=== PATIENT | male | born 1980 | race Caucasian/White ===

== ENCOUNTER → 2024-09-11 | Outpatient (REF) | payer MEDICARE, SELFPAY ==
[2024-09-11 08:11] LABS: Hematocrit 31.6 % (40-54); Hemoglobin 10.4 g/dL (13.0-16.5); Mean Corp Hgb Conc 32.9 g/dL (32-36); Mean Corpuscular Volume 75.2 fL (80-94); Mean Platelet Vol. 9.3 fl (6.2-12.0); Platelet Count 138 K/mm3 (150-450); RBC Distribution Width CV 17.0 % (11.6-14.6); RBC Distribution Width SD 45.4 fl (35.1-43.9); Red Blood Count 4.20 M/mm3 (4.6-6.2); White Blood Count 4.2 K/mm3 (4.4-11.0)
[2024-09-11 09:12] LABS: Anion Gap 11 (5-15); BUN 23 mg/dL (4-19); BUN/Creat Ratio 24.6 RATIO (10-20); Calcium,Total 8.9 mg/dL (7.6-11.0); Carbon Dioxide 20.1 mmol/L (21.0-32.0); Chloride 103 mmol/L (98-108); Glucose 213 mg/dL (70-99); Potassium 4.5 mmol/L (3.3-5.1)
== END ==
LOC: OLS.SANC 04:00
PROVIDERS: Referring Provider Internal Medicine; Visit Provider Internal Medicine
DX: I10 Essential (primary) hypertension (principal); E11.9 Type 2 diabetes mellitus without complications
CPT/HCPCS: 36415; 80048; 85027

== ENCOUNTER → 2024-10-13 05:00 | Outpatient (REF) | payer MEDICARE, SELFPAY ==
[2024-10-13 09:28] LABS: Hematocrit 35.9 % (40-54); Hemoglobin 11.8 g/dL (13.0-16.5); Mean Corp Hgb Conc 32.9 g/dL (32-36); Mean Corpuscular Volume 80.7 fL (80-94); Mean Platelet Vol. 9.8 fl (6.2-12.0); Platelet Count 149 K/mm3 (150-450); RBC Distribution Width CV 18.4 % (11.6-14.6); RBC Distribution Width SD 53.2 fl (35.1-43.9); Red Blood Count 4.45 M/mm3 (4.6-6.2); White Blood Count 5.5 K/mm3 (4.4-11.0)
[2024-10-13 09:37] LABS: Anion Gap 12 (5-15); BUN 39 mg/dL (4-19); BUN/Creat Ratio 39.6 RATIO (10-20); Calcium,Total 9.2 mg/dL (7.6-11.0); Carbon Dioxide 15.0 mmol/L (21.0-32.0); Chloride 107 mmol/L (98-108); Glucose 66 mg/dL (70-99); Potassium 4.9 mmol/L (3.3-5.1)
== END ==
LOC: OLS.SANC 05:00
PROVIDERS: Visit Provider Internal Medicine
DX: E11.9 Type 2 diabetes mellitus without complications (principal); I10 Essential (primary) hypertension; Z86.19 Personal history of other infectious and parasitic diseases
CPT/HCPCS: 36415; 80048; 85027

== ENCOUNTER → 2024-11-04 | Outpatient (REF) | payer MEDICARE, SELFPAY | LOC: OLS.SANC 05:00 | PROVIDERS: Visit Provider Internal Medicine | DX: E11.9 Type 2 diabetes mellitus without complications (principal) | CPT/HCPCS: 36415; 83036 ==

== ENCOUNTER → 2025-01-08 05:00 | Outpatient (REF) | payer MEDICARE, SELFPAY ==
--- OUTSIDE RECORDS SUMMARY | 2025-01-08 04:40 | XMS RPT_ITS | CCD ---
Author Organization [facility] Care Team Providers Care Waredresser Name Role Phone Prabhjot Angelita Primary Care Provider Dino HANDLEY, Eric Montemayor Primary Care Provider Desean HANDLEY, Stephanie Primary Care Provider [phone] Mally HANDLEY, Triston Unavailable Triston Bal MD Unavailable Liseth Belle DO Unavailable [phone] CHRISTINA JIM Attending Unavailable MEGAN MERCADO Consulting Unavailable MEGAN MERCADO Attending Unavailable MEGAN MERCADO Admitting Unavailable TRISTON BAL Consulting Unavailable DAHLIA FUNEZ Admitting Unavailable DAHLIA FUNEZ Attending Unavailable TITO REID Consulting Unavailable HAILY DURANT Consulting Unavailable RAFAELA CALDERON Consulting Unavailable Lan Leary Attending Unavailable Lan Leary Attending Unavailable Lan Leary Attending Unavailable Lan Leary Attending Unavailable Lan Leary Referring Unavailable Lan Leary Referring Unavailable Lan Leary Attending Unavailable Allergies Allergy Classification Reported Allergen(s) Allergy Type Date of Onset Reaction(s) Facility Penicillins (antibiotic) (2 sources) Penicillins Drug Allergy 12-03-2014 [facility] (8 sources) Penicillins Propensity to adverse reactions to drug 12-03-2014 [place], [place] (20 sources) Penicillins Propensity to adverse reactions 12-03-2014 [facility] Medications Current Medications Medication Drug Class(es) Dates Sig (Normalized) Sig (Original) aspirin 81 mg delayed release oral tablet (10 sources) Platelet Aggregation Inhibitor, Nonsteroidal Anti-inflammatory Drug Start: 10-08-2020 take 1 tablet by mouth once daily aspirin EC 81 MG EC tablet Indications: Type 2 diabetes mellitus without complication, without long-term current use of insulin (HCC) , Hyperlipidemia, unspecified hyperlipidemia type Take 1 tablet by mouth daily 30 tablet 3 10/08/2020 Active Start: 07-15-2020 take 1 tablet by zabrina th once daily aspirin EC 81 MG EC tablet Indications: Hyperlipidemia, unspecified hyperlipidemia type , Type 2 diabetes mellitus without complication, without long-term current use of insulin (HCC) Take 1 tablet by mouth daily 30 tablet 3 07/15/2020 Active Start: 01-01-2020 take 1 tablet by zabrina th once daily aspirin EC 81 MG EC tablet Indications: Hyperlipidemia, unspecified hyperlipidemia type , Type 2 diabetes mellitus without complication, without long-term current use of insulin (HCC) Take 1 tablet by mouth daily 30 tablet 3 01/01/2020 Active atorvastatin 80 mg oral tablet (12 sources) HMG-CoA Reductase Inhibitor Start: 10-08-2020 take 1 tablet by mouth once daily atorvastatin (LIPITOR) 80 MG tablet Indications: Hyperlipidemia, unspecified hyperlipidemia type Take 1 pill by mouth nightly 90 tablet 0 10/08/2020 Active Start: 06-18-2020 take 1 tablet by zabrina th once daily atorvastatin (LIPITOR) 80 MG tablet Indications: Hyperlipidemia, unspecified hyperlipidemia type Take 1 pill by mouth nightly 90 tablet 0 06/18/2020 Active Start: 06-08-2020 End: 06-18-2020 take 40 mg by mouth once daily 40 mg, Oral, DAILY, First dose on Sun06/18/20 at 0900 Start: 03-29-2020 take 1 tablet by zabrina th once daily atorvastatin (LIPITOR) 40 MG tablet Indications: Hyperlipidemia, unspecified hyperlipidemia type TAKE ONE TABLET BY MOUTH DAILY 30 tablet 0 03/29/2020 Active Start: 02-19-2020 take 1 tablet by zabrina th once daily atorvastatin (LIPITOR) 40 MG tablet Indications: Hyperlipidemia, unspecified hyperlipidemia type TAKE ONE TABLET BY MOUTH DAILY 30 tablet 0 02/19/2020 Active Start: 01-01-2020 End: 01-31-2020 take 1 tablet by mouth once daily atorvastatin (LIPITOR) 40 MG tablet Indications: Hyperlipidemia, unspecified hyperlipidemia type Take 1 tablet by mouth daily 30 tablet 0 01/01/2020 01/31/2020 Active calcium carbonate 625 mg / cholecalciferol 125 unt oral tablet (3 sources) Vitamin D Start: 10-08-2020 End: 10-08-2021 take 1 tablet by mouth once daily Calcium Carb-Cholecalciferol (OYSCO D) 250-125 MG-UNIT TABS Indications: Vitamin C deficiency Take 1 tablet by mouth daily 30 tablet 11 10/08/2020 10/08/2021 Active Start: 04-06-2015 take 1 tablet by zabrina once daily Calcium Carb-Cholecalciferol (OYSCO D) 250-125 MG-UNIT TABS Indications: Vitamin C deficiency Take 1 tablet by mouth daily 30 tablet 11 04/06/2015 Active collagenase 0.25 unt/mg topical ointment (20 sources) Collagen-specific Enzyme Start: 05-30-2024 End: 06-06-2024 apply 1 dose topically once daily as needed Topical, Daily, First dose on Mimi 06/05/24 at 1115, Nursing staff to perform dressing change: Perineum: NHSW (infection) - Cleanse with Dakins. Apply Santyl to wound bed. Lightly pack with Dakins moist gauze. Cover with ABD pads and mesh underwear. Change daily and PRN. Start: 05-27-2024 End: 09-04-2024 collagenase 250 UNIT/GM oint ment Apply topically as needed (Wound care). 06/06/2024 09/04/2024 Active 0.5 ml dulaglutide 3 mg/ml auto-injector (4 sources) GLP-1 Receptor Agonist Start: 10-08-2020 Dulaglutide (TRULICITY) 1.5 MG/0.5ML SOPN Inject 1.5 mg into the skin once a week 10 pen 3 10/08/2020 Active Start: 06-18-2020 Dulaglutide (T RULICITY) 1.5 MG/0.5ML SOPN Inject 1.5 mg into the skin once a week 10 pen 3 07/16/2020 Active ertapenem (6 sources) Penem Antibacterial Start: 07-11-2024 End: 07-17-2024 take 1 g intravenously every twenty-four hours ERTAPENEM SODIUM IV Infuse 1 g into a venous catheter Every 24 hours. 07/11/2024 07/17/2024 Active 50 ml glucose 50 mg/ml injection (20 sources) Start: 06-04-2024 End: 06-06-2024 Start: 06-04-2024 End: 06-06-2024 Start: 05-21-2024 End: 06-06-2024 dextrose 5 % solution Infuse 100 mL/hr into a venous catheter as needed (Blood sugar less than 70mg/dL). 06/06/2024 Active Start: 06-18-2020 15 g, Oral, KS N, Low blood sugar, Starting Sun06/18/20 at 0328 If blood glucose less than 50 mg/dL and patient ALERT and TOLERATING PO, give 2 tubes glucose gel. If blood glucose less than 70 mg/dL and patient ALERT and TOLERATING PO, give 1 tube glucose gel. Repeat blood glucose in 15 minutes. If blood glucose is less than 70 mg/dL, repeat treatment and recheck blood glucose in 15 minutes x2 and notify provider. Start: 06-18-2020 12.5 g, Intrav enous, PRN, Low blood sugar, Blood glucose less than 70 mg/dL and patient NOT ALERT or NPO., Starting Sun06/18/20 at 0328 If patient does not respond within 5 minutes, repeat dose x1. Start D5W at 100 mL/hour until ordering provider can be reached. Repeat blood glucose in 15 minutes. If blood glucose is less than 70 mg/dL, repeat treatment and recheck blood glucose in 15 minutes x2. If using Glucostabilizer, dose as instructed per system. Start: 06-18-2020 100 mL/hr, Int ravenous, at 100 mL/hr, PRN, Low blood sugar, Starting Sun06/18/20 at 0328 Start infusion following administration of dextrose 50% or glucagon. hydroCHLOROthiazide 25 mg oral tablet (8 sources) Thiazide Diuretic Start: 12-27-2016 End: 06-18-2020 take 25 mg by mouth once daily 25 mg, Oral, DAILY, First dose on Sun06/18/20 at 0900 hydrOXYzine pamoate 25 mg oral capsule (20 sources) Antihistamine Start: 05-25-2024 End: 06-16-2024 take 1 capsule by mouth every eight hours as needed hydrOXYzine pamoate (Vistaril) 25 MG capsule Indications: Wound of left buttock, subsequent encounter Take 1 capsule (25 mg) by mouth every 8 hours as needed for itching for up to 10 days. 06/06/2024 Active insulin lispro 100 unt/ml injectable solution (20 sources) Insulin Analog Start: 06-06-2024 End: 06-06-2024 0-12 Units, SubCUTAneous, 4 times daily before meals & nightly, First dose (after last modification) on Sun06/06/24 at 0800, Medium Dose Correction Algorithm Glucose: Dose: LESS than 150 No Insulin 150-199 2 Units 200-249 4 Units 250-299 6 Units 300-349 8 Units 350-400 10 Units Above 400 12 Units Start: 05-30-2024 End: 06-06-2024 Insulin Lispro (Humalog) 100 UNIT/ML solution injection Inject 0-12 Units under the skin 3 times daily (with meals) AND 0-12 Units Nightly. 06/06/2024 Active Start: 05-21-2024 lisinopril 20 mg oral tablet (10 sources) Angiotensin Converting Enzyme Inhibitor Start: 10-08-2020 take 1 tablet by mouth once daily lisinopril (PRINIVIL;ZESTRIL) 20 MG tablet Indications: Essential hypertension , Type 2 diabetes mellitus with hyperglycemia, without long-term current use of insulin (HCC) Take 1 tablet by mouth daily 30 tablet 3 10/08/2020 Active Start: 09-06-2020 take 1 tablet by zabrina th once daily lisinopril (PRINIVIL;ZESTRIL) 10 MG tablet Indications: Essential hypertension , Type 2 diabetes mellitus with hyperglycemia, without long-term current use of insulin (HCC) Take 1 tablet by mouth daily 90 tablet 3 09/06/2020 Active Start: 06-08-2020 End: 06-18-2020 take 2.5 mg by mouth once daily 2.5 mg, Oral, DAILY, First dose on Sun06/18/20 at 0900 Start: 03-29-2020 take 1 tablet by zabrina th once daily lisinopril (PRINIVIL;ZESTRIL) 2.5 MG tablet Indications: Essential hypertension TAKE ONE TABLET BY MOUTH DAILY 30 tablet 0 03/29/2020 Active Start: 02-19-2020 take 1 tablet by zabrina th once daily lisinopril (PRINIVIL;ZESTRIL) 2.5 MG tablet Indications: Essential hypertension TAKE ONE TABLET BY MOUTH DAILY 30 tablet 0 02/19/2020 Active Start: 01-01-2020 End: 01-31-2020 take 1 tablet by mouth once daily lisinopril (ZESTRIL) 2.5 MG tablet Indications: Essential hypertension Take 1 tablet by mouth daily 30 tablet 0 01/01/2020 01/31/2020 Active metFORMIN hydrochloride 500 mg oral tablet (8 sources) Biguanide Start: 10-08-2020 take 1 tablet by mouth twice daily at mealtime metFORMIN (GLUCOPHAGE) 500 MG tablet Indications: Type 2 diabetes mellitus without complication, without long-term current use of insulin (HCC) TAKE ONE TABLET BY MOUTH TWO TIMES A DAY with meals 60 tablet 0 10/08/2020 Active Start: 07-15-2020 take 1 tablet by zabrina th twice daily at mealtime metFORMIN (GLUCOPHAGE) 500 MG tablet Indications: Type 2 diabetes mellitus without complication, without long-term current use of insulin (HCC) TAKE ONE TABLET BY MOUTH TWO TIMES A DAY with meals 60 tablet 0 07/15/2020 Active Start: 06-08-2020 take 1 tablet by zabrina th twice daily at mealtime metFORMIN (GLUCOPHAGE) 500 MG tablet Indications: Type 2 diabetes mellitus without complication, without long-term current use of insulin (HCC) TAKE ONE TABLET BY MOUTH TWO TIMES A DAY with meals 60 tablet 0 06/08/2020 Active Start: 2020 End: 02-19-2020 take 1 tablet by mouth twice daily at mealtime metFORMIN (GLUCOPHAGE) 500 MG tablet Indications: Type 2 diabetes mellitus without complication, without long-term current use of insulin (HCC) Take 1 tablet by mouth 2 times daily (with meals) 60 tablet 2 01/20/2020 02/19/2020 Active Start: 01-01-2020 End: 01-31-2020 take 1 tablet by mouth once daily at breakfast metFORMIN (GLUCOPHAGE) 500 MG tablet Indications: Type 2 diabetes mellitus without complication, without long-term current use of insulin (HCC) Take 1 tablet by mouth daily (with breakfast) 30 tablet 0 01/01/2020 01/31/2020 Active morphine (PF) injection 2 mg (1 source) Start: 06-18-2020 morphine (PF) injection 2 mg ondansetron 4 mg disintegrating oral tablet (10 sources) Serotonin-3 Receptor Antagonist Start: 05-30-2024 End: 06-13-2024 take 1 tablet by mouth every eight hours as needed for nausea and vomiting ondansetron ODT (Zofran-ODT) 4 MG disintegrating tablet Take 1 tablet (4 mg) by mouth every 8 hours as needed for nausea or vomiting for up to 7 days. 06/06/2024 06/13/2024 Active oxyCODONE hydrochloride 5 mg oral tablet (10 sources) Opioid Agonist Start: 05-30-2024 End: 06-11-2024 take 1 tablet by mouth every six hours as needed for pain oxyCODONE (Roxicodone) 5 MG immediate release tablet Indications: Wound of left buttock, subsequent encounter Take 1 tablet (5 mg) by mouth every 6 hours as needed for moderate pain (4-6) for up to 5 days. 06/06/2024 06/11/2024 Active pantoprazole 40 mg delayed release oral tablet (3 sources) Proton Pump Inhibitor Start: 06-18-2020 take 1 tablet by mouth once daily before breakfast pantoprazole (PROTONIX) 40 MG tablet Take 1 tablet by mouth every morning (before breakfast) 30 tablet 3 06/18/2020 Active Start: 06-18-2020 pantoprazole ( PROTONIX) tablet 40 mg piperacillin 4000 mg / tazobactam 500 mg injection (20 sources) Penicillin-class Antibacterial, beta Lactamase Inhibitor Start: 06-06-2024 take 4.5 g intravenously every six hours piperacillin-tazobactam (Zosyn) IVPB 4.5 g in 100 mL (premix) Infuse 100 mL (4.5 g) into a venous catheter every 6 hours. 06/06/2024 Active Start: 06-04-2024 End: 06-06-2024 take 4500 mg intravenously every six hours 4,500 mg, IntraVENous, at 200 mL/hr, Administer over 0.5 Hours, Every 6 hours, First dose on Sun06/04/24 at 2300, premix bag, Suspected Indication (Select all that apply): Skin and Soft Tissue Infection predniSONE 20 mg oral tablet (1 source) Start: 08-15-2021 End: 08-22-2021 take 3 tablets by mouth once daily predniSONE (DELTASONE) 20 MG tablet Take 3 tablets by mouth daily for 7 days 5 tablet 0 08/15/2021 08/22/2021 Active Promethazine (1 source) Phenothiazine Start: 06-18-2020 promethazine (PHENERGAN) tablet 12.5 mg regular insulin, human 100 unt/ml injectable solution (1 source) Insulin Start: 06-18-2020 0-10 Units, Subcutaneous, 3 TIMES DAILY BEFORE MEALS, First dose on Sun06/18/20 at 0700 Corrective Low Dose Algorithm Glucose: Dose: 70-139 No Insulin 140- 199 1 Unit 200-249 2 Units 250-29 9 3 Units 300-34 9 4 Units 350-39 9 5 Units Over 399 6 Units Vancomycin (20 sources) Glycopeptide Antibacterial Start: 06-06-2024 take 1250 mg intravenously every twelve hours vancomycin IVPB 1250 mg in 250 mL NS (premix) Infuse 250 mL (1,250 mg) into a venous catheter every 12 hours. 06/06/2024 Active Start: 06-05-2024 End: 06-06-2024 take 1250 mg intravenously every twelve hours 1,250 mg, IntraVENous, at 166.7 mL/hr, Administer over 90 Minutes, Every 12 hours, First dose (after last modification) on [facility] 06/05/24 at 2200, premix bag, Suspected Indication (Select all that apply): Skin and Soft Tissue Infection Start: 06-05-2024 End: 06-05-2024 take 1250 mg intravenously every eight hours 1,250 mg, IntraVENous, at 166.7 mL/hr, Administer over 90 Minutes, Every 8 hours, First dose (after last reorder) on [facility] 06/05/24 at 1030, premix bag, Suspected Indication (Select all that apply): Skin and Soft Tissue Infection take 1 g intravenous ly every twelve hours vancomycin IVPB 1 g in 200 mL (premix) Infuse 1 g into a venous catheter every 12 hours. Active Completed/Discontinued Medications Medication Drug Class(es) Dates Sig (Normalized) Sig (Original) acetaminophen 325 mg oral tablet (16 sources) Start: 06-04-2024 End: 06-06-2024 take 1 tablet by mouth every four hours as needed for pain and headache 650 mg, Oral, Every 4 hours PRN, moderate pain (4-6), headaches, Starting on Sun06/04/24 at 2044, Maximum dose of acetaminophen is 4000 mg from all sources in 24 hours. Start: 05-21-2024 End: 06-16-2024 take 2 tablets by mouth every four hours as needed for pain and headache acetaminophen (Tylenol) 325 MG tablet Take 2 tablets (650 mg) by mouth every 4 hours as needed for moderate pain (4-6) or headaches for up to 10 days. 06/06/2024 06/16/2024 Start: 06-18-2020 acetaminophen (TYLENOL) tablet 650 mg calcium carbonate 500 mg oral tablet (7 sources) Start: 04-06-2015 take 1 tablet by mouth once daily calcium carbonate (OSCAL) 500 MG TABS tablet Indications: Hypertension goal BP (blood pressure) Take 1 tablet by mouth daily 30 tablet 3 04/06/2015 Active Start: 04-06-2015 End: 06-18-2020 take 1 tablet by mouth once daily calcium carbonate (OSCAL) 500 MG TABS tablet Indications: Hypertension goal BP (blood pressure) Take 1 tablet by mouth daily 30 tablet 3 04/06/2015 06/18/2020 Discontinued (LIST CLEANUP) calcium chloride 0.0014 meq/ml / potassium chloride 0.004 meq/ml / sodium chloride 0.103 meq/ml / sodium lactate 0.028 meq/ml injectable solution (5 sources) Start: 06-05-2024 End: 06-06-2024 take 75 mL intravenously every hour 75 mL/hr, IntraVENous, Continuous, Starting on Mimi 06/05/24 at 0000 Start: 05-21-2024 End: 05-21-2024 Start: 08-15-2021 End: 08-15-2021 lactated ringers bolus cephalexin 500 mg oral capsule (4 sources) Cephalosporin Antibacterial Start: 05-30-2024 End: 06-06-2024 take 2 capsules by mouth three times daily cephalexin (Keflex) 500 MG capsule Take 2 capsules (1,000 mg) by mouth 3 times daily for 4 days. 05/30/2024 06/06/2024 Discontinued (Stop taking at discharge) cholecalciferol 9.52 unt/ml / glucose 357 mg/ml oral gel (4 sources) Vitamin D Start: 06-04-2024 End: 06-06-2024 Start: 05-21-2024 End: 05-30-2024 50 ml clindamycin 12 mg/ml injection (4 sources) Lincosamide Antibacterial Start: 06-04-2024 End: 06-06-2024 take 600 mg intravenously every eight hours 600 mg, IntraVENous, at 100 mL/hr, Administer over 30 Minutes, Every 8 hours, First dose on Sun06/04/24 at 2100, premix bag, Suspected Indication (Select all that apply): Skin and Soft Tissue Infection Start: 05-22-2024 End: 05-26-2024 take 600 mg intravenously every eight hours 0.4 ml enoxaparin sodium 100 mg/ml prefilled syringe (4 sources) Low Molecular Weight Heparin Start: 06-05-2024 End: 06-06-2024 inject 40 mg by subcutaneous injection every twenty-four hours 40 mg, SubCUTAneous, Every 24 hours scheduled (Daily), First dose on Sun06/05/24 at 1200, Indication of Use: Prophylaxis-DVT/PE, Indications: Prophylaxis of Venous Thromboembolism Start: 05-22-2024 End: 05-23-2024 2 ml fentaNYL 0.05 mg/ml injection (2 sources) Opioid Agonist Start: 06-05-2024 End: 06-05-2024 IntraVENous, As needed, Starting on Sun06/05/24 at 1332, Intraprocedure glucagon (rdna) 1 mg injection (5 sources) Antihypoglycemic Agent Start: 06-04-2024 End: 06-06-2024 Start: 05-21-2024 End: 05-30-2024 Start: 06-18-2020 take 1 mL intravenou s route every hour 1 mg, Intramuscular, PRN, Low blood sugar, Blood glucose less than 70 mg/dL and patient NOT ALERT or NPO and does not have IV access., Starting Sun06/18/20 at 0328 After administration, attempt intravenous access and start D5W at 100 mL/hr. Repeat blood glucose in 15 minutes x2 and notify provider. 250 ml glucose 50 mg/ml / sodium chloride 4.5 mg/ml injection (2 sources) Start: 05-22-2024 End: 05-26-2024 1 ml HYDROmorphone hydrochloride 1 mg/ml cartridge (2 sources) Opioid Agonist Start: 05-26-2024 End: 05-26-2024 sodium hypochlorite 2.5 mg/m l topical solution (16 sources) Start: 06-05-2024 End: 06-06-2024 Irrigation, 2 times daily, First dose on Sun06/05/24 at 2100 Start: 06-05-2024 End: 06-06-2024 apply 1 dose topically once daily as needed Topical, Daily, First dose (after last modification) on Sun06/05/24 at 1645, Nursing staff to perform dressing change: Perineum: NHSW (infection) - Cleanse with Dakins. Apply Santyl to wound bed. Lightly pack with Dakins moist gauze. Cover with ABD pads and mesh underwear. Change daily and PRN. Start: 05-30-2024 End: 06-06-2024 sodium hypochlorite (Dakin's , HALF-Strength,) 0.25 % external solution Irrigate with as directed Once for 1 dose. 06/06/2024 06/06/2024 Start: 05-27-2024 End: 05-30-2024 Start: 05-22-2024 End: 05-27-2024 insulin glargine 100 unt/ml injectable solution (5 sources) Insulin Analog Start: 05-21-2024 End: 05-21-2024 Start: 05-21-2024 End: 05-21-2024 Start: 06-18-2020 inject 8 [IU] by sub cutaneous injection once daily 8 Units, Subcutaneous, NIGHTLY, First dose on Sun06/18/20 at 2100 Start: 04-15-2020 End: 06-18-2020 insulin glargine (LANTUS SOLOSTAR) 100 UNIT/ML injection pen Indications: Type 2 diabetes mellitus without complication, without long-term current use of insulin (HCC) Inject 10 Units into the skin nightly 3 mL 0 05/13/2020 06/18/2020 Discontinued (Stop Taking at Discharge) iopamidol (Isovue-370) 76 % injection 75 mL (2 sources) Start: 06-04-2024 End: 06-04-2024 take 75 mL intravenously once as needed 75 mL, IntraVENous, IMG once PRN, contrast, Starting on Sun06/04/24 at 1848, For 1 dose isopropyl alcohol 0.7 ml/ml medicated pad (2 sources) Start: 05-23-2024 End: 05-23-2024 10 ml lidocaine hydrochloride 20 mg/ml injection (2 sources) Antiarrhythmic, Amide Local Anesthetic Start: 05-27-2024 End: 05-27-2024 100 ml magnesium sulfate 40 mg/ml injection (2 sources) Start: 05-21-2024 End: 05-22-2024 5 ml metoprolol tartrate 1 mg/ml injection (1 source) beta-Adrenergic Bienvenido Start: 08-15-2021 End: 08-15-2021 metoprolol (LOPRESSOR) injection 5 mg metroNIDAZOLE 500 mg oral tablet (8 sources) Nitroimidazole Antimicrobial Start: 05-29-2024 End: 06-06-2024 take 1 tablet by mouth every eight hours metroNIDAZOLE (Flagyl) 500 MG tablet Take 1 tablet (500 mg) by mouth every 8 hours for 4 days. 05/30/2024 06/06/2024 Discontinued (Stop taking at discharge) Start: 05-23-2024 End: 05-28-2024 take 500 mg intravenously every eight hours 1 ml midazolam 5 mg/ml cartridge (2 sources) Benzodiazepine Start: 06-05-2024 End: 06-05-2024 IntraVENous, As needed, Starting on Sun06/05/24 at 1332, Intraprocedure 1 ml naloxone hydrochloride 0.4 mg/ml injection (4 sources) Opioid Antagonist Start: 06-04-2024 End: 06-06-2024 0.4 mg, IntraVENous, Every 5 min PRN, opioid reversal, respiratory depression, Starting on Sun06/04/24 at 2033, +++ For RR Start: 05-21-2024 End: 05-30-2024 nystatin 793843 unt/ml oral suspension (9 sources) Polyene Antifungal Start: 06-06-2024 End: 06-16-2024 nystatin (Mycostatin) [id number] UNIT/ML suspension Swish and swallow 5 mL (500,000 Units) 3 times daily for 10 days. 06/06/2024 06/16/2024 Start: 06-05-2024 End: 06-06-2024 500,000 Units (5 mL), Swish & Swallow, 3 times daily, First dose on Mimi 06/05/24 at 0930 ondansetron ODT (Zofran-ODT) disintegrating tablet 4 mg (2 sources) Start: 06-04-2024 End: 06-06-2024 take 1 tablet by mouth every eight hours as needed for nausea and vomiting ondansetron ODT (Zofran-ODT) disintegrating tablet 4 mg polyethylene glycol 3350 40075 mg powder for oral solution (3 sources) Osmotic Laxative Start: 06-04-2024 End: 06-06-2024 take 17 g by mouth every twenty-four hours as needed for constipation Start: 06-18-2020 17 g, Oral, DA DAPHNIE PRN, Constipation, Starting Sun06/18/20 at 0328 First line therapy for constipation 5 ml sodium chloride 9 mg/ml injection (20 sources) Start: 06-04-2024 End: 06-06-2024 take 5-40 mL intravenously every twelve hours 5-40 mL, IntraVENous, Every 12 hours, First dose on Sun06/04/24 at 2045, For Line Patency: Peripheral IV = 5 mL; Midline or Central Line = 10 mL/lumen. If following IV push medication, administer flush at same rate as the IV push. Flush volume is determined by type of infusion therapy being given. For non-viscous solutions use: Peripheral IV = 5 mL Midline or Central Line = 10 mL/lumen For viscous solutions (i.e. blood components, parenteral nutrition, contrast media, or after obtaining blood sample) use: Peripheral IV = 10 mL Midline or Central Line = 20 mL/lumen Start: 06-04-2024 End: 06-06-2024 Start: 06-04-2024 End: 06-06-2024 Start: 06-04-2024 End: 06-04-2024 1,000 mL, IntraVENous, at 1, 000 mL/hr, Administer over 1 Hours, Once, On Sun06/04/24 at 1610, For 1 dose Start: 05-27-2024 End: 05-30-2024 take 10 mL intraluminal route every twelve hours Start: 05-22-2024 End: 05-30-2024 Start: 05-22-2024 End: 05-30-2024 Start: 05-21-2024 End: 05-21-2024 Start: 06-18-2020 Intravenous, a t 140 mL/hr, CONTINUOUS, Starting Sun06/18/20 at 0345 Start: 06-18-2020 take 5-40 mL intrave nous route once as needed 5-40 mL, Intravenous, PRN, Line Care, After every IV line use, Starting Sun06/18/20 at 0328 For Line Patency: Peripheral IV = 5 mL; Midline or Central Line = 10 mL/lumen. If following IV push medication, administer flush at same rate as the IV push. Flush volume is determined by type of infusion therapy being given. For non-viscous solutions use: Peripheral IV = 5 mL Midline or Central Line = 10 mL/lumen For viscous solutions (i.e. blood components, parenteral nutrition, contrast media, or after obtaining blood sample) use: Peripheral IV = 10 mL Midline or Central Line = 20 mL/lumen Start: 06-18-2020 take 25 mL intraveno us route every hour as needed 25 mL, Intravenous, at 100 mL/hr, PRN, If patient receiving piggyback infusions without ordered maintenance IV fluids or with frequent/long duration piggyback infusions, Starting Sun06/18/20 at 0328 Administer at the same rate as the piggyback being infused. Start: 06-17-2020 End: 06-18-2020 0.9 % sodium chloride bolus (18 sources) Start: 05-29-2024 End: 05-30-2024 take 2000 mg intravenously every eight hours Start: 05-29-2024 End: 05-30-2024 [Order 1 Start] Name: Insuli n Lispro (Humalog) injection 0-12 Units Signed Summary: 0-12 Units, SubCUTAneous, 3 times daily with meals, First dose on Sun05/29/24 at 1215, Medium Dose Correction Algorithm Glucose: Dose: LESS than 150 No Insulin 150-199 2 Units 200-249 4 Units 250-299 6 Units 300-349 8 Units 350-400 10 Units Above 400 12 Units [Order 1 End] [Order 2 Start] Name: Insulin Lispro (Humalog) injection 0-12 Units Signed Summary: 0-12 Units, SubCUTAneous, Nightly, First dose on Mimi 05/29/24 at 2100, If eating or bolus tube feeding: Medium Dose Correction Algorithm Glucose: Dose: LESS than 150 No Insulin 150-199 2 Units 200-249 4 Units 250-299 6 Units 300-349 8 Units 350-400 10 Units Above 400 12 Units [Order 2 End] Start: 05-28-2024 End: 05-29-2024 take 1000 mg intravenously every eight hours Start: 05-22-2024 End: 05-28-2024 take 2000 mg intravenously every eight hours Start: 05-21-2024 End: 05-30-2024 [Order 1 Start] Name: potass ium chloride CR (Klor-Con M10) ER tablet 20 mEq Signed Summary: 20 mEq, Oral, PRN, Per Potassium Replacement Protocol, Starting on Sun05/21/24 at 2316, May give linked alternative if patient unable to tolerate oral formulation. K Lab Replacement Action 3.6 to 5 20 mEq ORAL x 1 2.7 to 3.5 40 meq ORAL x 1 Under 2.7 60 meq ORAL x 1 Protocol not for use in patients with CrCl less than 30 mL/min. Do not crush or chew. [Order 1 End] [Order 2 Start] Name: potassium chloride CR (Klor-Con M10) ER tablet 40 mEq Signed Summary: 40 mEq, Oral, PRN, Per Potassium Replacement Protocol, Starting on Sun05/21/24 at 2316, May give linked alternative if patient unable to tolerate oral formulation. K Lab Replacement Action 3.6 to 5 20 mEq ORAL x 1 2.7 to 3.5 40 meq ORAL x 1 Under 2.7 60 meq ORAL x 1 Protocol not for use in patients with CrCl less than 30 mL/min. Do not crush or chew. [Order 2 End] [Order 3 Start] Name: potassium chloride CR (Klor-Con M10) ER tablet 60 mEq Signed Summary: 60 mEq, Oral, PRN, Per Potassium Replacement Protocol, Starting on Sun05/21/24 at 2316, May give linked alternative if patient unable to tolerate oral formulation. K Lab Replacement Action 3.6 to 5 20 mEq ORAL x 1 2.7 to 3.5 40 meq ORAL x 1 Under 2.7 60 meq ORAL x 1 Protocol not for use in patients with CrCl less than 30 mL/min. Do not crush or chew. [Order 3 End] [Order 4 Start] Name: potassium chloride (Klor-Con) packet 20 mEq Signed Summary: 20 mEq, Oral, PRN, Per Potassium Replacement Protocol, Starting on Sun05/21/24 at 2316, May give linked alternative if patient unable to tolerate oral formulation. K Lab Replacement Action 3.6 to 5 20 mEq ORAL x 1 2.7 to 3.5 40 meq ORAL x 1 Under 2.7 60 meq ORAL x 1 Protocol not for use in patients with CrCl less than 30 mL/min. Dissolve each packet in 4 ounces of water = 5 mEq per 1 oz fluid. [Order 4 End] [Order 5 Start] Name: potassium chloride (Klor-Con) packet 40 mEq Signed Summary: 40 mEq, Oral, PRN, Per Potassium Replacement Protocol, Starting on Sun05/21/24 at 2316, May give linked alternative if patient unable to tolerate oral formulation. K Lab Replacement Action 3.6 to 5 20 mEq ORAL x 1 2.7 to 3.5 40 meq ORAL x 1 Under 2.7 60 meq ORAL x 1 Protocol not for use in patients with CrCl less than 30 mL/min. Dissolve each packet in 4 ounces of water = 5 mEq per 1 oz fluid. [Order 5 End] [Order 6 Start] Name: potassium chloride (Klor-Con) packet 60 mEq Signed Summary: 60 mEq, Oral, PRN, Per Potassium Replacement Protocol, Starting on Sun05/21/24 at 2316, May give linked alternative if patient unable to tolerate oral formulation. K Lab Replacement Action 3.6 to 5 20 mEq ORAL x 1 2.7 to 3.5 40 meq ORAL x 1 Under 2.7 60 meq ORAL x 1 Protocol not for use in patients with CrCl less than 30 mL/min. Dissolve each packet in 4 ounces of water = 5 mEq per 1 oz fluid. [Order 6 End] [Order 7 Start] Name: potassium chloride IVPB 10 mEq Signed Summary: 10 mEq, IntraVENous, at 100 mL/hr, Administer over 1 Hours, PRN, Per Potassium Replacement Protocol, Starting on Sun05/21/24 at 2316, For Peripheral Line Use: K Lab Replacement Action 3.6 to 5 10 mEq IVPB x 2 doses (20 mEq Total) 2.7 to 3.5 10 mEq IVPB x 4 doses (40 mEq Total) Under 2.7 10 mEq IVPB x 6 doses (60 mEq Total) Infuse at 10 mEq/hr Repeat Potassium lab 1 hour after final administration. Protocol not for use in Patients with CrCl less than 30mL/min [Order 7 End] Start: 05-21-2024 End: 05-30-2024 take 5 mg by mouth every four hours as needed for pain [Order 1 Start] Name: oxyCODONE (Roxicodone) immediate release tablet 5 mg Signed Summary: 5 mg, Oral, Every 4 hours PRN, moderate pain (4-6), Starting on Sun05/21/24 at 2153 [Order 1 End] [Order 2 Start] Name: oxyCODONE (Roxicodone) immediate release tablet 10 mg Signed Summary: 10 mg, Oral, Every 4 hours PRN, severe pain (7-10), Starting on Sun05/21/24 at 2153 [Order 2 End] Start: 05-21-2024 End: 05-30-2024 [Order 1 Start] Name: morphi ne injection 2 mg Signed Summary: 2 mg, IntraVENous, Every 2 hour PRN, moderate pain (4-6), Starting on Sun05/21/24 at 2153, If oral and IV narcotics ordered, use oral first and only use IV if oral is ineffective or cannot take oral. Do Not give oral and IV within 1 hour of each other unless specifically ordered. [Order 1 End] [Order 2 Start] Name: morphine injection 4 mg Signed Summary: 4 mg, IntraVENous, Every 2 hour PRN, severe pain (7-10), Starting on Sun05/21/24 at 2153, If oral and IV narcotics ordered, use oral first and only use IV if oral is ineffective or cannot take oral. Do Not give oral and IV within 1 hour of each other unless specifically ordered. [Order 2 End] Start: 05-21-2024 End: 05-30-2024 take 4 mg by mouth every eight hours as needed for nausea and vomiting [Order 1 Start] Name: ondansetron ODT (Zofran-ODT) disintegrating tablet 4 mg Signed Summary: 4 mg, Oral, Every 8 hours PRN, nausea, vomiting, Starting on Sun05/21/24 at 2150, 1st Line. If inadequate response within 60 minutes, proceed to next-line agent or contact provider if no further options ordered. Patient should allow tablet to dissolve on tongue. Do not remove from blister pack until just before administering. [Order 1 End] [Order 2 Start] Name: ondansetron (Zofran) injection 4 mg Signed Summary: 4 mg, IntraVENous, Every 6 hours PRN, nausea, vomiting, Starting on Sun05/21/24 at 2150, 1st Line. Give IV if patient is unable to take orally. If inadequate response within 60 minutes, proceed to next-line agent or contact provider if no further options ordered. [Order 2 End] Start: 05-21-2024 End: 05-21-2024 (4 sources) Start: 05-22-2024 End: 05-28-2024 take 1500 mg intravenously every twelve hours Start: 05-21-2024 End: 05-21-2024 (2 sources) Start: 05-21-2024 End: 05-30-2024 (2 sources) Start: 05-21-2024 End: 05-21-2024 Problems Active Problems Problem Classification Problem Date Documented Da te Episodic/Chronic Administrative/social admission (2 sources) Unable to perform personal care activity; Translations: [Unable to care for self] Onset: 1 06-18-2020 Anxiety disorders (20 sources) Anxiety; Translations: [Anxiety disorder, unspecified] Onset: 5 06-05-2024 Chronic Diabetes mellitus with complications (20 sources) Hyperglycemia due to type 2 diabetes mellitus; Translations: [Type 2 diabetes mellitus with hyperglycemia] Onset: 1 06-18-2020 Chronic Diabetes mellitus without complication (9 sources) Type 2 diabetes mellitus without complication; Translations: [Type 2 diabetes mellitus] Onset: 7 12-28-2016 Chronic Diabetes mellitus without complication (4 sources) Diabetes mellitus without complication Onset: Disorders of lipid metabolism (20 sources) Hypertriglyceridemia; Translations: [Hyperlipidemia] Onset: 7 12-28-2016 Chronic Essential hypertension (20 sources) Essential hypertension; Translations: [Essential (primary) hypertension] Onset: 7 12-28-2016 Chronic Gout and other crystal arthropathies (20 sources) Gout; Translations: [Gout, unspecified] Onset: 5 12-03-2014 Chronic Other acquired deformities (20 sources) Scoliosis deformity of spine; Translations: [Scoliosis, unspecified] Onset: 5 12-03-2014 Chronic Other diseases of bladder and urethra (1 source) Male urethral stricture; Translations: [Unspecified urethral stricture, male, unspecified site] 07-17-2024 Episodic Other ear and sense organ disorders (11 sources) Hearing loss; Translations: [Unspecified hearing loss, unspecified ear] Onset: 1 12-03-2014 Chronic Other gastrointestinal disorders (1 source) Upper gastrointestinal bleeding; Translations: [Upper GI bleed] Episodic Other nutritional; endocrine; and metabolic disorders (20 sources) Severe obesity; Translations: [Morbid (severe) obesity due to excess calories] Onset: 0 01-01-2020 Chronic Septicemia (except in labor) (20 sources) Sepsis; Translations: [Sepsis, unspecified organism] Onset: 5 05-21-2024 Episodic Unclassified (4 sources) Patient Stated Goal Onset: 0 Unclassified (4 sources) Lifestyle Management Onset: 0 Unclassified (20 sources) Hearing loss; Translations: [Hearing impaired] Onset: 1 12-24-2021 Past or Other Problems Problem Classification Problem Date Documented Da te Episodic/Chronic Acute and unspecified renal failure (2 sources) Acute kidney failure, unspecified; Translations: [Acute kidney failure, unspecified (HCC)] Onset: 05-21-2024 Episodic Allergic reactions (16 sources) Inflammatory dermatosis; Translations: [Dermatitis, unspecified] Onset: 06-20-2024 Episodic Bacterial infection; unspecified site (20 sources) Mixed infectious disease; Translations: [Bacterial infection, unspecified] Onset: 06-09-2024 06-09-2024 Episodic Complications of surgical procedures or medical care (18 sources) Postprocedural abscess; Translations: [Infection following a procedure, other surgical site, initial encounter] Onset: 06-11-2024 06-11-2024 Episodic Gastritis and duodenitis (20 sources) Helicobacter pylori-associated gastritis; Translations: [Gastritis, unspecified, without bleeding] Onset: 07-19-2020 09-06-2020 Episodic Gastrointestinal hemorrhage (5 sources) Hematemesis; Translations: [Hematemesis] Onset: 06-18-2020 Resolved: 06-18-2020 06-18-2020 Episodic Inflammatory conditions of male genital organs (20 sources) Jhoan's gangrene; 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] Onset: 05-21-2024 05-21-2024 Episodic Mycoses (16 sources) Dermal mycosis; 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, unspecified] Onset: 06-20-2024 06-20-2024 Episodic Open wounds of head; neck; and trunk (20 sources) Injury of buttock; Translations: [Unspecified open wound of left buttock, initial encounter] Onset: 05-21-2024 05-22-2024 Episodic Other aftercare (20 sources) Long-term current use of antibiotic; Translations: [FPC (current) use of antibiotics] Onset: 06-09-2024 06-09-2024 Episodic Other connective tissue disease (20 sources) Necrotizing soft tissue infection; Translations: [Other specified soft tissue disorders] Onset: 05-21-2024 05-24-2024 Episodic Other connective tissue disease (2 sources) Other specified soft tissue disorders; Translations: [Other specified soft tissue disorders] Onset: 05-21-2024 Episodic Other diseases of bladder and urethra (2 sources) Unspecified urethral stricture, male, unspecified site; Translations: [Unspecified urethral stricture, male, unspecified site] Onset: 07-17-2024 Episodic Other nervous system disorders (20 sources) Disturbance in speech; Translations: [Unspecified speech disturbances] Onset: 12-03-2014 12-03-2014 Episodic Other nervous system disorders (20 sources) Chavarria's palsy; 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] Onset: 08-29-2021 Episodic Peritonitis and intestinal abscess (13 sources) Male pelvic abscess; Translations: [Peritoneal abscess] Onset: 06-04-2024 06-06-2024 Episodic Residual codes; unclassified (20 sources) Unable to perform personal care activity; Translations: [Other specified health status] Onset: 06-18-2020 06-18-2020 Episodic Residual codes; unclassified (20 sources) Noncompliance with treatment; Translations: [Patient's noncompliance with other medical treatment and regimen] Onset: 06-18-2020 06-18-2020 Episodic Shock (2 sources) Severe sepsis with septic shock; Translations: [Severe sepsis with septic shock (HCC)] Onset: 05-21-2024 Episodic Skin and subcutaneous tissue infections (20 sources) Cellulitis of buttock; Translations: [Cellulitis of buttock] Onset: 05-21-2024 05-22-2024 Episodic Results Test Name Value Interpretation Reference Range Facility 36on 11-18-20[address] Belle out of office 12/05 at 9am and need to reschedule the appt. Moved pt to 12/04/24 at 930am in [place] with [facility]. Mailed letter also with information on new appt. Normal [facility] Hemoglobin A1con 11-04-2024 HbA1c (Bld) [Mass fraction] 5.8 % High <=5.6 [facility] Comment on above: Order Comment: 106.1 Result Comment: Norm al < 5.7 % Prediabetic 5.7 - 6.4 % Diabetic >or= 6.5 % Please note range changes. Performed By: #### L 500.2500, L100.0500 #### [facility] [address] [place], [address] Basic Metabolic Profile (BMP )on 10-13-2024 BUN/CRE 39.6 RATIO High 10-20 [facility] Comment on above: Order Comment: 106.1 Performed By: #### L 500.2500, L100.0500 #### [facility] [address] [place], [address] Calcium [Mass/Vol] 9.2 mg/dL Normal 7.6-11.0 [facility] Comment on above: Order Comment: 106.1 Performed By: #### L 500.2500, L100.0500 #### [facility] [address] [place], [address] Chloride [Moles/Vol] 107 mmol/L Normal 98-108 [facility] Comment on above: Order Comment: 106.1 Performed By: #### L 500.2500, L100.0500 #### [facility] [address] [place], [address] CO2 [Moles/Vol] 15.0 mmol/L Low 21.0-32.0 [facility] Comment on above: Order Comment: 106.1 Performed By: #### L 500.2500, L100.0500 #### [facility] [address] [place], [address] Creatinine [Mass/Vol] 0.99 mg/dL Normal 0.70-1.20 [facility] Comment on above: Order Comment: 106.1 Performed By: #### L 500.2500, L100.0500 #### [facility] [address] [place], [address] GAP 12 Normal 5-15 [facility] Comment on above: Order Comment: 106.1 Performed By: #### L 500.2500, L100.0500 #### [facility] [address] [place], [address] GFR/1.73 sq M.predicted among non-blacks MDRD (S/P/Bld) [Vol rate/Area] 96 mL/min/{1.73_m2} Normal >60 [facility] Comment on above: Order Comment: 106.1 Result Comment: mL/m in/1.73m2 CKD-EPI Creatinine Equation (2020) Performed By: #### L 500.2500, L100.0500 #### [facility] [address] [place], [address] Glucose [Mass/Vol] 66 mg/dL Low 70-99 [facility] Comment on above: Order Comment: 106.1 Performed By: #### L 500.2500, L100.0500 #### [facility] [address] [place], [address] Potassium [Moles/Vol] 4.9 mmol/L Normal 3.3-5.1 [facility] Comment on above: Order Comment: 106.1 Performed By: #### L 500.2500, L100.0500 #### [facility] [address] [place], [address] Sodium [Moles/Vol] 135 mmol/L Normal 133-145 [facility] Comment on above: Order Comment: 106.1 Performed By: #### L 500.2500, L100.0500 #### [facility] [address] [place], [address] Urea nitrogen [Mass/Vol] 39 mg/dL High 4-19 [facility] Comment on above: Order Comment: 106.1 Performed By: #### L 500.2500, L100.0500 #### [facility] [address] [place], [address] CBC-Complete Blood Cnt No ffon 10-13-2024 Erythrocyte distribution width (RBC) [Ratio] 18.4 % High 11.6-14.6 [facility] Comment on above: Order Comment: 106.1 Performed By: #### L 500.2500, L100.0500 #### [facility] [address] [place], [address] Hematocrit (Bld) [Volume fraction] 35.9 % Low 40-54 [facility] Comment on above: Order Comment: 106.1 Performed By: #### L 500.2500, L100.0500 #### [facility] [address] [place], [address] Hemoglobin (Bld) [Mass/Vol] 11.8 g/dL Low 13.0-16.5 [facility] Comment on above: Order Comment: 106.1 Performed By: #### L 500.2500, L100.0500 #### [facility] [address] [place], [address] MCH (RBC) [Entitic mass] 26.5 pg Low 27.0-32.0 [facility] Comment on above: Order Comment: 106.1 Performed By: #### L 500.2500, L100.0500 #### [facility] [address] [place], [address] MCHC (RBC) [Mass/Vol] 32.9 g/dL Normal 32-36 [facility] Comment on above: Order Comment: 106.1 Performed By: #### L 500.2500, L100.0500 #### [facility] [address] [place], [address] MCV (RBC) [Entitic vol] 80.7 fL Normal 80-94 [facility] Comment on above: Order Comment: 106.1 Performed By: #### L 500.2500, L100.0500 #### [facility] [address] [place], [address] Platelet mean volume (Bld) [Entitic vol] 9.8 fL Normal 6.2-12.0 [facility] Comment on above: Order Comment: 106.1 Performed By: #### L 500.2500, L100.0500 #### [facility] [address] [place], [address] Platelets (Bld) [#/Vol] 149 10*3/uL Low 150-450 [facility] Comment on above: Order Comment: 106.1 Performed By: #### L 500.2500, L100.0500 #### [facility] [address] [place], [address] RBC (Bld) [#/Vol] 4.45 10*6/uL Low 4.6-6.2 [facility] Comment on above: Order Comment: 106.1 Performed By: #### L 500.2500, L100.0500 #### [facility] [address] [place], [address] RDW SD 53.2 fl High 35.1-43.9 [facility] Comment on above: Order Comment: 106.1 Performed By: #### L 500.2500, L100.0500 #### [facility] [address] [place], [address] WBC (Bld) [#/Vol] 5.5 10*3/uL Normal 4.4-11.0 [facility] Comment on above: Order Comment: 106.1 Performed By: #### L 500.2500, L100.0500 #### [facility] [address] [place], [address] 36on 10-02-2024 36 Normal [facility] Basic Metabolic Profile (BMP )on 09-11-2024 BUN/CRE 24.6 RATIO High 10-20 [facility] Comment on above: Order Comment: 106.1 Performed By: #### L 500.2500, L100.0500 #### [facility] [address] [place], [address] Calcium [Mass/Vol] 8.9 mg/dL Normal 7.6-11.0 [facility] Comment on above: Order Comment: 106.1 Performed By: #### L 500.2500, L100.0500 #### [facility] [address] [place], [address] Chloride [Moles/Vol] 103 mmol/L Normal 98-108 [facility] Comment on above: Order Comment: 106.1 Performed By: #### L 500.2500, L100.0500 #### [facility] [address] [place], [address] CO2 [Moles/Vol] 20.1 mmol/L Low 21.0-32.0 [facility] Comment on above: Order Comment: 106.1 Performed By: #### L 500.2500, L100.0500 #### [facility] [address] [place], [address] Creatinine [Mass/Vol] 0.92 mg/dL Normal 0.70-1.20 [facility] Comment on above: Order Comment: 106.1 Performed By: #### L 500.2500, L100.0500 #### [facility] [address] [place], [address] GAP 11 Normal 5-15 [facility] Comment on above: Order Comment: 106.1 Performed By: #### L 500.2500, L100.0500 #### [facility] [address] [place], [address] GFR/1.73 sq M.predicted among non-blacks MDRD (S/P/Bld) [Vol rate/Area] 104 mL/min/{1.73_m2} Normal >60 [facility] Comment on above: Order Comment: 106.1 Result Comment: mL/m in/1.73m2 CKD-EPI Creatinine Equation (2020) Performed By: #### L 500.2500, L100.0500 #### [facility] [address] [place], [address] Glucose [Mass/Vol] 213 mg/dL High 70-99 [facility] Comment on above: Order Comment: 106.1 Performed By: #### L 500.2500, L100.0500 #### [facility] [address] [place], [address] Potassium [Moles/Vol] 4.5 mmol/L Normal 3.3-5.1 [facility] Comment on above: Order Comment: 106.1 Performed By: #### L 500.2500, L100.0500 #### [facility] [address] [place], [address] Sodium [Moles/Vol] 134 mmol/L Normal 133-145 [facility] Comment on above: Order Comment: 106.1 Performed By: #### L 500.2500, L100.0500 #### [facility] [address] [place], [address] Urea nitrogen [Mass/Vol] 23 mg/dL High 4-19 [facility] Comment on above: Order Comment: 106.1 Performed By: #### L 500.2500, L100.0500 #### [facility] [address] [place], [address] CBC-Complete Blood Cnt No Di ffon 09-11-2024 Erythrocyte distribution width (RBC) [Ratio] 17.0 % High 11.6-14.6 [facility] Comment on above: Order Comment: 106.1 Performed By: #### L 500.2500, L100.0500 #### [facility] [address] [place], [address] Hematocrit (Bld) [Volume fraction] 31.6 % Low 40-54 [facility] Comment on above: Order Comment: 106.1 Performed By: #### L 500.2500, L100.0500 #### [facility] [address] [place], [address] Hemoglobin (Bld) [Mass/Vol] 10.4 g/dL Low 13.0-16.5 [facility] Comment on above: Order Comment: 106.1 Performed By: #### L 500.2500, L100.0500 #### [facility] [address] [place], [address] MCH (RBC) [Entitic mass] 24.8 pg Low 27.0-32.0 [facility] Comment on above: Order Comment: 106.1 Performed By: #### L 500.2500, L100.0500 #### [facility] [address] [place], [address] MCHC (RBC) [Mass/Vol] 32.9 g/dL Normal 32-36 [facility] Comment on above: Order Comment: 106.1 Performed By: #### L 500.2500, L100.0500 #### [facility] [address] [place], [address] MCV (RBC) [Entitic vol] 75.2 fL Low 80-94 [facility] Comment on above: Order Comment: 106.1 Performed By: #### L 500.2500, L100.0500 #### [facility] [address] [place], [address] Platelet mean volume (Bld) [Entitic vol] 9.3 fL Normal 6.2-12.0 [facility] Comment on above: Order Comment: 106.1 Performed By: #### L 500.2500, L100.0500 #### [facility] [address] [place], [address] Platelets (Bld) [#/Vol] 138 10*3/uL Low 150-450 [facility] Comment on above: Order Comment: 106.1 Performed By: #### L 500.2500, L100.0500 #### [facility] [address] [place], [address] RBC (Bld) [#/Vol] 4.20 10*6/uL Low 4.6-6.2 [facility] Comment on above: Order Comment: 106.1 Performed By: #### L 500.2500, L100.0500 #### [facility] [address] [place], [address] RDW SD 45.4 fl High 35.1-43.9 [facility] Comment on above: Order Comment: 106.1 Performed By: #### L 500.2500, L100.0500 #### [facility] [address] [place], [address] WBC (Bld) [#/Vol] 4.2 10*3/uL Low 4.4-11.0 [facility] Comment on above: Order Comment: 106.1 Performed By: #### L 500.2500, L100.0500 #### [facility] [address] [place], [address] 36on 08-15-2024 36 Your fax has been successfully sent to Patricia Robb at [phone]. 08/15/2024 8:41:58 AM Origin Record Created by [facility] 36 Letter created at this time for catheter changes and irrigation per the facility. Can someone please send this be faxed to [phone] please? [facility] 36on 08-13-2024 36 Normal [facility] 36 Normal [facility] Progress Noteon 07-17-2024 Progress Note Normal [facility] CBC W/Diff, Automatedon 05-0 Absolute Neut Normal 2.0-7.7 [facility] Comment on above: Order Comment: 306.2 Result Comment: DOES NOT NEED [facility]PE[facility] 07/16/24 @0630 Performed By: #### L 500.4050, L100.0100 #### [facility] [address] [place], [address] HCT Normal 40-54 [facility] Comment on above: Order Comment: 306.2 Result Comment: DOES NOT NEED REPEATED PER [employer] 07/16/24 @0630 Performed By: #### L 500.4050, L100.0100 #### [facility] [address] [place], [place], [address] HGB Normal 13.0-16.5 [facility] Comment on above: Order Comment: 306.2 Result Comment: DOES NOT NEED REPEATED PER RHIANNON EDGAR 07/16/24 @0630 Performed By: #### L 500.4050, L100.0100 #### [facility] [address] [place], [address] MCH Normal 27.0-32.0 [facility] Comment on above: Order Comment: 306.2 Result Comment: DOES NOT NEED REPEATED PER RHIANNON EDGAR 07/16/24 @0630 Performed By: #### L 500.4050, L100.0100 #### [facility] [address] [place], [address] MCHC Normal 32-36 [facility] Comment on above: Order Comment: 306.2 Result Comment: DOES NOT NEED REPEATED PER RHIANNON EDGAR 07/16/24 @0630 Performed By: #### L 500.4050, L100.0100 #### [facility] [address] [place], [address] MCV Normal 80-94 [facility] Comment on above: Order Comment: 306.2 Result Comment: DOES NOT NEED REPEATED PER RHIANNON EDGAR 07/16/24 @0630 Performed By: #### L 500.4050, L100.0100 #### [facility] [address] [place], [address] NEUT% Normal 47-70 [facility] Comment on above: Order Comment: 306.2 Result Comment: DOES NOT NEED REPEATED PER RHIANNON EDGAR 07/16/24 @0630 Performed By: #### L 500.4050, L100.0100 #### [facility] [address] [place], [address] PLT Normal 150-450 [facility] Comment on above: Order Comment: 306.2 Result Comment: DOES NOT NEED REPEATED PER RHIANNON EDGAR 07/16/24 @0630 Performed By: #### L 500.4050, L100.0100 #### [facility] [address] [place], [address] RBC Normal 4.6-6.2 [facility] Comment on above: Order Comment: 306.2 Result Comment: DOES NOT NEED REPEATED PER [facility] 07/16/24 @0630 Performed By: #### L 500.4050, L100.0100 #### [facility] [address] [place], [address] RDW CV Normal 11.6-14.6 [facility] Comment on above: Order Comment: 306.2 Result Comment: DOES NOT NEED REPEATED PER [facility] 07/16/24 @0630 Performed By: #### L 500.4050, L100.0100 #### [facility] [address] [place], [address] RDW SD Normal 35.1-43.9 [facility] Comment on above: Order Comment: 306.2 Result Comment: DOES NOT NEED REPEATED PER [facility] 07/16/24 @0630 Performed By: #### L 500.4050, L100.0100 #### [facility] [address] [place], [address] WBC Normal 4.4-11.0 [facility] Comment on above: Order Comment: 306.2 Result Comment: DOES NOT NEED REPEATED PER [facility] 07/16/24 @0630 Performed By: #### L 500.4050, L100.0100 #### [facility] [address] [place], [address] Comprehensive Metabolic Prof ilon 07-16-2024 ALB Normal 3.5-5.0 [facility] Comment on above: Order Comment: 306.2 Result Comment: DOES NOT NEED REPEATED PER [facility] 07/16/24 @0630 Performed By: #### L 500.4050, L100.0100 #### [facility] [address] [place], [address] ALK PHOS Normal 40-129 [facility] Comment on above: Order Comment: 306.2 Result Comment: DOES NOT NEED REPEATED PER RHIANNON EDGAR 07/16/24 @30 Performed By: #### L 500.4050, L100.0100 #### [facility] [address] [place], [address] ALT Normal <=46 [facility] Comment on above: Order Comment: 306.2 Result Comment: DOES NOT NEED REPEATED PER RHIANNON EDGAR 07/16/24 @30 Performed By: #### L 500.4050, L100.0100 #### [facility] [address] [place], [address] AST Normal <=37 [facility] Comment on above: Order Comment: 306.2 Result Comment: DOES NOT NEED REPEATED PER RHIANNON EDGAR 07/16/24 @30 Performed By: #### L 500.4050, L100.0100 #### [facility] [address] [place], [address] BUN Normal 4-19 [facility] Comment on above: Order Comment: 306.2 Result Comment: DOES NOT NEED [facility]PEATED [facility] 07/16/24 @30 Performed By: #### L 500.4050, L100.0100 #### [facility] [address] [place], [address] BUN/CRE Normal 10-20 [facility] Comment on above: Order Comment: 306.2 Result Comment: DOES NOT NEED REPEATED PER RHIANNON EDGAR 07/16/24 @30 Performed By: #### L 500.4050, L100.0100 #### [facility] [address] [place], [address] Calcium Normal 7.6-11.0 [facility] Comment on above: Order Comment: 306.2 Result Comment: DOES NOT NEED REPEATED PER RHIANNON EDGAR 07/16/24 @30 Performed By: #### L 500.4050, L100.0100 #### [facility] [address] [place], [address] CL Normal 98-108 [facility] Comment on above: Order Comment: 306.2 Result Comment: DOES NOT NEED REPEATED PER RHIANNON EDGAR 07/16/24 @30 Performed By: #### L 500.4050, L100.0100 #### [facility] [address] [place], [address] CO2 Normal 21.0-32.0 [facility] Comment on above: Order Comment: 306.2 Result Comment: DOES NOT NEED REPEATED PER RHIANNON EDGAR 07/16/24 @30 Performed By: #### L 500.4050, L100.0100 #### [facility] [address] [place], [address] CREAT,SERUM Normal 0.70-1.20 [facility] Comment on above: Order Comment: 306.2 Result Comment: DOES NOT NEED REPEATED PER RHIANNON EDGAR 07/16/24 @30 Performed By: #### L 500.4050, L100.0100 #### [facility] [address] [place], [address] eGFR Normal >60 [facility] Comment on above: Order Comment: 306.2 Result Comment: DOES NOT NEED REPEATED PER RHIANNON EDGAR 07/16/24 @30 Performed By: #### L 500.4050, L100.0100 #### [facility] [address] [place], [address] GAP Normal 5-15 [facility] Comment on above: Order Comment: 306.2 Result Comment: DOES NOT NEED REPEATED PER RHIANNON EDGAR 07/16/24 @0630 Performed By: #### L 500.4050, L100.0100 #### [facility] [address] [place], [address] GLU Normal 70-99 [facility] Comment on above: Order Comment: 306.2 Result Comment: DOES NOT NEED REPEATED PER RHIANNON EDGAR 07/16/24 @30 Performed By: #### L 500.4050, L100.0100 #### [facility] [address] [place], [address] Potassium Normal 3.3-5.1 [facility] Comment on above: Order Comment: 306.2 Result Comment: DOES NOT NEED REPEATED PER [facility] 07/16/24 @30 Performed By: #### L 500.4050, L100.0100 #### [facility] [address] [place], [address] T BILI Normal 0.00-1.30 [facility] Comment on above: Order Comment: 306.2 Result Comment: DOES NOT NEED REPEATED PER [facility] 07/16/24 @0630 Performed By: #### L 500.4050, L100.0100 #### [facility] [address] [place], [address] T PROT Normal 5.9-8.4 [facility] Comment on above: Order Comment: 306.2 Result Comment: DOES NOT NEED REPEATED PER [facility] 07/16/24 @30 Performed By: #### L 500.4050, L100.0100 #### [facility] [address] [place], [address] Comprehensive Metabolic Profil Normal 133-145 [facility] Comment on above: Order Comment: 306.2 Result Comment: DOES NOT NEED REPEATED PER [facility] 07/16/24 @30 Performed By: #### L 500.4050, L100.0100 #### [facility] [address] [place], [address] 36on 07-15-2024 36 [place] [address] Called facility and spoke to nurse Lr regarding maintaining IV abx orders and pull PICC after last dose. She was able to read back orders. [place] [address] Reviewed vanc level today at 13.6. We can resume his vancomycin at 750 mg IV q24h to complete course through 07/17. Can pull PICC at end of therapy. Normal [facility] CBC W/Diff, Automatedon 05-0 -2024 Absolute Lymph 1.41 X10 3/uL Normal 0.83-4.51 [facility] Comment on above: Order Comment: 306-2 Performed By: #### L 501.8820, L100.0100, L500.4050 #### [facility] [address] [place], [address] Absolute Neut 2.7 X10 3/uL Normal 2.0-7.7 [facility] Comment on above: Order Comment: 306-2 Performed By: #### L 501.8820, L100.0100, L500.4050 #### [facility] [address] [place], [address] Basophils/100 WBC (Bld) 0.4 % Normal 0-1 [facility] Comment on above: Order Comment: 306-2 Performed By: #### L 501.8820, L100.0100, L500.4050 #### [facility] [address] [place], [address] Eosinophils/100 WBC (Bld) 2.6 % Normal 0-5 [facility] Comment on above: Order Comment: 306-2 Performed By: #### L 501.8820, L100.0100, L500.4050 #### [facility] [address] [place], [address] Erythrocyte distribution width (RBC) [Ratio] 15.2 % High 11.6-14.6 [facility] Comment on above: Order Comment: 306-2 Performed By: #### L 501.8820, L100.0100, L500.4050 #### [facility] [address] [place], [address] Hematocrit (Bld) [Volume fraction] 32.1 % Low 40-54 [facility] Comment on above: Order Comment: 306-2 Performed By: #### L 501.8820, L100.0100, L500.4050 #### [facility] [address] [place], [address] Hemoglobin (Bld) [Mass/Vol] 10.4 g/dL Low 13.0-16.5 [facility] Comment on above: Order Comment: 306-2 Performed By: #### L 501.8820, L100.0100, L500.4050 #### [facility] [address] [place], [address] IG% 0.400 Normal 0.0-0.9 [facility] Comment on above: Order Comment: 306-2 Result Comment: IG% - Immature Granulocytes (promyelocytes, myelocytes and metamyelocytes) > 1% indicates that a LEFT SHIFT is Present. Performed By: #### L 501.8820, L100.0100, L500.4050 #### [facility] [address] [place], [address] Lymphocytes/100 WBC (Bld) 30.7 % Normal 19-41 [facility] Comment on above: Order Comment: 306-2 Performed By: #### L 501.8820, L100.0100, L500.4050 #### [facility] [address] [place], [address] MCH (RBC) [Entitic mass] 24.7 pg Low 27.0-32.0 [facility] Comment on above: Order Comment: 306-2 Performed By: #### L 501.8820, L100.0100, L500.4050 #### [facility] [address] [place], [address] MCHC (RBC) [Mass/Vol] 32.4 g/dL Normal 32-36 [facility] Comment on above: Order Comment: 306-2 Performed By: #### L 501.8820, L100.0100, L500.4050 #### [facility] [address] [place], [address] MCV (RBC) [Entitic vol] 76.2 fL Low 80-94 [facility] Comment on above: Order Comment: 306-2 Performed By: #### L 501.8820, L100.0100, L500.4050 #### [facility] [address] [place], [address] Monocytes/100 WBC (Bld) 8.3 % Normal 0-[address] [facility] Comment on above: Order Comment: 306-2 Performed By: #### L 501.8820, L100.0100, L500.4050 #### [facility] [address] [place], [address] Neutrophils/100 WBC (Bld) 57.6 % Normal 47-70 [facility] Comment on above: Order Comment: 306-2 Performed By: #### L 501.8820, L100.0100, L500.4050 #### [facility] [address] [place], [address] Nucleated RBC (Bld) [#/Vol] 0 10*3/uL Normal 0-5 [facility] Comment on above: Order Comment: 306-2 Performed By: #### L 501.8820, L100.0100, L500.4050 #### [facility] [address] [place], [address] Platelet mean volume (Bld) [Entitic vol] 9.4 fL Normal 6.2-12.0 [facility] Comment on above: Order Comment: 306-2 Performed By: #### L 501.8820, L100.0100, L500.4050 #### [facility] [address] [place], [address] Platelets (Bld) [#/Vol] 203 10*3/uL Normal 150-450 [facility] Comment on above: Order Comment: 306-2 Performed By: #### L 501.8820, L100.0100, L500.4050 #### [facility] [address] [place], [address] RBC (Bld) [#/Vol] 4.21 10*6/uL Low 4.6-6.2 [facility] Comment on above: Order Comment: 306-2 Performed By: #### L 501.8820, L100.0100, L500.4050 #### [facility] [address] [place], [address] RDW SD 41.8 fl Normal 35.1-43.9 [facility] Comment on above: Order Comment: 306-2 Performed By: #### L 501.8820, L100.0100, L500.4050 #### [facility] [address] [place], [address] WBC (Bld) [#/Vol] 4.6 10*3/uL Normal 4.4-11.0 [facility] Comment on above: Order Comment: 306-2 Performed By: #### L 501.8820, L100.0100, L500.4050 #### [facility] [address] [place], [address] [facility] 07-15-2024 Albumin [Mass/Vol] 3.7 g/dL Normal 3.5-5.0 [facility] Comment on above: Order Comment: 306-2 Performed By: #### L 501.8820, L100.0100, L500.4050 #### [facility] [address] [place], [address] Albumin/Globulin [Mass ratio] 1.1 {ratio} Normal 0.9-2.4 [facility] Comment on above: Order Comment: 306-2 Performed By: #### L 501.8820, L100.0100, L500.4050 #### [facility] [address] [place], [address] ALK PHOS 180 U/L High 40-129 [facility] Comment on above: Order Comment: 306-2 Performed By: #### L 501.8820, L100.0100, L500.4050 #### [facility] [address] [place], [address] ALT [Catalytic activity/Vol] 48 U/L High <=46 [facility] Comment on above: Order Comment: 306-2 Performed By: #### L 501.8820, L100.0100, L500.4050 #### [facility] [address] [place], [address] AST [Catalytic activity/Vol] 37 U/L Normal <=37 [facility] Comment on above: Order Comment: 306-2 Performed By: #### L 501.8820, L100.0100, L500.4050 #### [facility] [address] [place], [address] Bilirubin [Mass/Vol] 0.31 mg/dL Normal 0.00-1.30 [facility] Comment on above: Order Comment: 306-2 Performed By: #### L 501.8820, L100.0100, L500.4050 #### [facility] [address] [place], [address] BUN/CRE 33.5 RATIO High 10-20 [facility] Comment on above: Order Comment: 306-2 Performed By: #### L 501.8820, L100.0100, L500.4050 #### [facility] [address] [place], [address] Calcium [Mass/Vol] 9.0 mg/dL Normal 7.6-11.0 [facility] Comment on above: Order Comment: 306-2 Performed By: #### L 501.8820, L100.0100, L500.4050 #### [facility] [address] [place], [address] Chloride [Moles/Vol] 109 mmol/L High 98-108 [facility] Comment on above: Order Comment: 306-2 Performed By: #### L 501.8820, L100.0100, L500.4050 #### [facility] [address] [place], [address] CO2 [Moles/Vol] 16.8 mmol/L Low 21.0-32.0 [facility] Comment on above: Order Comment: 306-2 Performed By: #### L 501.8820, L100.0100, L500.4050 #### [facility] [address] [place], [address] Creatinine [Mass/Vol] 0.95 mg/dL Normal 0.70-1.20 [facility] Comment on above: Order Comment: 306-2 Performed By: #### L 501.8820, L100.0100, L500.4050 #### [facility] [address] [place], [address] GAP 12 Normal 5-15 [facility] Comment on above: Order Comment: 306-2 Performed By: #### L 501.8820, L100.0100, L500.4050 #### [facility] [address] [place], [address] GFR/1.73 sq M.predicted among non-blacks MDRD (S/P/Bld) [Vol rate/Area] 100 mL/min/{1.73_m2} Normal >60 [facility] Comment on above: Order Comment: 306-2 Result Comment: mL/m in/1.73m2 CKD-EPI Creatinine Equation (2020) Performed By: #### L 501.8820, L100.0100, L500.4050 #### [facility] [address] [place], [address] Globulin (S) [Mass/Vol] 3.3 g/dL Normal 2.2-4.[address] [facility] Comment on above: Order Comment: 306-2 Performed By: #### L 501.8820, L100.0100, L500.4050 #### [facility] [address] [place], [address] Glucose [Mass/Vol] 85 mg/dL Normal 70-99 [facility] Comment on above: Order Comment: 306-2 Performed By: #### L 501.8820, L100.0100, L500.4050 #### [facility] [address] [place], [address] Potassium [Moles/Vol] 5.0 mmol/L Normal 3.3-5.1 [facility] Comment on above: Order Comment: 306-2 Performed By: #### L 501.8820, L100.0100, L500.4050 #### [facility] [address] [place], [address] Sodium [Moles/Vol] 137 mmol/L Normal 133-145 [facility] Comment on above: Order Comment: 306-2 Performed By: #### L 501.8820, L100.0100, L500.4050 #### [facility] [address] [place], [address] T PROT 6.9 g/dL Normal 5.9-8.4 [facility] Comment on above: Order Comment: 306-2 Performed By: #### L 501.8820, L100.0100, L500.4050 #### [facility] [address] [place], [address] Urea nitrogen [Mass/Vol] 32 mg/dL High 4-19 [facility] Comment on above: Order Comment: 306-2 Performed By: #### L 501.8820, L100.0100, L500.4050 #### [facility] [address] [place], [address] Vancomycin, Trough Levelon 0 07-15-2024 VANCO, TROUGH 13.6 ug/mL Normal 5.0-15.0 [facility] Comment on above: Order Comment: 672-2 [id number] Result Comment: Catracho mmended goal trough ranges are generally 10-15 mcg/ml for less severe/complicated infections such as cellulitis or UTI and 15-20 mcg/ml for more severe/complicated infections such as bacteremia/sepsis, osteomyelitis, pneumonia or meningitis. Goal trough ranges should take into account indication, patient-specific factors and organism FRAN. VANCOMYCIN STANDARED DRUG THERAPY TROUGH LEVEL: 5.0 - 15.0 mg/L VANCOMYCIN HIGH INTENSITY THERAPY TROUGH LEVEL: 15.0 - 20.0 mg/L High Intensity therapy recommended for serious life threatening infections include: - Meningitis -Endocarditis -Pneumonia (Ventilator/Healtcare Associated) -Sepsis PLEASE CONTACT PHARMACY SERVICES (#[phone]) FOR INTERPRETATION OF RESULTS. Performed By: #### L 501.8820, L100.0100, L500.4050 #### [facility] [address] [place], [address] 36on 07-14-2024 36 [facility] 36 [facility] 36 [facility] CBC-Complete Blood Cnt No Di ffon 07-14-2024 Erythrocyte distribution width (RBC) [Ratio] 15.2 % High 11.6-14.6 [facility] Comment on above: Performed By: #### L 501.8820, L500.4050, L100.0500 #### [facility] [address] [place], [address] Hematocrit (Bld) [Volume fraction] 30.7 % Low 40-54 [facility] Comment on above: Performed By: #### L 501.8820, L500.4050, L100.0500 #### [facility] [address] [place], [address] Hemoglobin (Bld) [Mass/Vol] 9.9 g/dL Low 13.0-16.5 [facility] Comment on above: Performed By: #### L 501.8820, L500.4050, L100.0500 #### [facility] [address] [place], [address] MCH (RBC) [Entitic mass] 24.6 pg Low 27.0-32.0 [facility] Comment on above: Performed By: #### L 501.8820, L500.4050, L100.0500 #### [facility] [address] [place], [address] MCHC (RBC) [Mass/Vol] 32.2 g/dL Normal 32-36 [facility] Comment on above: Performed By: #### L 501.8820, L500.4050, L100.0500 #### [facility] [address] [place], [address] MCV (RBC) [Entitic vol] 76.2 fL Low 80-94 [facility] Comment on above: Performed By: #### L 501.8820, L500.4050, L100.0500 #### [facility] [address] [place], [address] Platelet mean volume (Bld) [Entitic vol] 9.5 fL Normal 6.2-12.0 [facility] Comment on above: Performed By: #### L 501.8820, L500.4050, L100.0500 #### [facility] [address] [place], [address] Platelets (Bld) [#/Vol] 215 10*3/uL Normal 150-450 [facility] Comment on above: Performed By: #### L 501.8820, L500.4050, L100.0500 #### [facility] [address] [place], [address] RBC (Bld) [#/Vol] 4.03 10*6/uL Low 4.6-6.2 [facility] Comment on above: Performed By: #### L 501.8820, L500.4050, L100.0500 #### [facility] [address] [place], [address] RDW SD 42.0 fl Normal 35.1-43.9 [facility] Comment on above: Performed By: #### L 501.8820, L500.4050, L100.0500 #### [facility] [address] [place], [address] WBC (Bld) [#/Vol] 5.0 10*3/uL Normal 4.4-11.0 [facility] Comment on above: Performed By: #### L 501.8820, L500.4050, L100.0500 #### [facility] [address] [place], [address] [facility] 07-14-2024 Albumin [Mass/Vol] 3.5 g/dL Normal 3.5-5.0 [facility] Comment on above: Performed By: #### L 501.8820, L500.4050, L100.0500 #### [facility] [address] [place], [address] Albumin/Globulin [Mass ratio] 0.9 {ratio} Normal 0.9-2.4 [facility] Comment on above: Performed By: #### L 501.8820, L500.4050, L100.0500 #### [facility] [address] [place], [address] ALK PHOS 148 U/L High 40-129 [facility] Comment on above: Performed By: #### L 501.8820, L500.4050, L100.0500 #### [facility] [address] [place], [address] ALT [Catalytic activity/Vol] 29 U/L Normal <=46 [facility] Comment on above: Performed By: #### L 501.8820, L500.4050, L100.0500 #### [facility] [facility] [address] [place], [address] AST [Catalytic activity/Vol] 23 U/L Normal <=37 [facility] Comment on above: Performed By: #### L 501.8820, L500.4050, L100.0500 #### [facility] [address] [place], [address] Bilirubin [Mass/Vol] 0.32 mg/dL Normal 0.00-1.30 [facility] Comment on above: Performed By: #### L 501.8820, L500.4050, L100.0500 #### [facility] [address] [place], [address] BUN/CRE 32.7 RATIO High 10-20 [facility] Comment on above: Performed By: #### L 501.8820, L500.4050, L100.0500 #### [facility] [address] [place], [address] Calcium [Mass/Vol] 9.4 mg/dL Normal 7.6-11.0 [facility] Comment on above: Performed By: #### L 501.8820, L500.4050, L100.0500 #### [facility] [address] [place], [address] Chloride [Moles/Vol] 105 mmol/L Normal 98-108 [facility] Comment on above: Performed By: #### L 501.8820, L500.4050, L100.0500 #### [facility] [address] [place], [address] CO2 [Moles/Vol] 17.7 mmol/L Low 21.0-32.0 [facility] Comment on above: Performed By: #### L 501.8820, L500.4050, L100.0500 #### [facility] [address] [place], [address] Creatinine [Mass/Vol] 0.84 mg/dL Normal 0.70-1.20 [facility] Comment on above: Performed By: #### L 501.8820, L500.4050, L100.0500 #### [facility] [address] [place], [address] GAP 12 Normal 5-15 [facility] Comment on above: Performed By: #### L 501.8820, L500.4050, L100.0500 #### [facility] [address] [place], [address] GFR/1.73 sq M.predicted among non-blacks MDRD (S/P/Bld) [Vol rate/Area] 110 mL/min/{1.73_m2} Normal >60 [facility] Comment on above: Result Comment: mL/m in/1.73m2 CKD-EPI Creatinine Equation (2020) Performed By: #### L 501.8820, L500.4050, L100.0500 #### [facility] [address] [place], [address] Globulin (S) [Mass/Vol] 3.8 g/dL Normal 2.2-4.[address] [facility] Comment on above: Performed By: #### L 501.8820, L500.4050, L100.0500 #### [facility] [address] [place], [address] Glucose [Mass/Vol] 91 mg/dL Normal 70-99 [facility] Comment on above: Performed By: #### L 501.8820, L500.4050, L100.0500 #### [facility] [address] [place], [address] Potassium [Moles/Vol] 4.7 mmol/L Normal 3.3-5.1 [facility] Comment on above: Performed By: #### L 501.8820, L500.4050, L100.0500 #### [facility] [address] [place], [address] Sodium [Moles/Vol] 135 mmol/L Normal 133-145 [facility] Comment on above: Performed By: #### L 501.8820, L500.4050, L100.0500 #### [facility] [address] [place], [address] T PROT 7.2 g/dL Normal 5.9-8.4 [facility] Comment on above: Performed By: #### L 501.8820, L500.4050, L100.0500 #### [facility] [address] [place], [address] Urea nitrogen [Mass/Vol] 28 mg/dL High 4-19 [facility] Comment on above: Performed By: #### L 501.8820, L500.4050, L100.0500 #### [facility] [address] [place], [address] Vancomycin, Trough Levelon 0 - VANCO, TROUGH 27.7 ug/mL High 5.0-15.0 [facility] Comment on above: Order Comment: 0000 Result Comment: Catracho mmended goal trough ranges are generally 10-15 mcg/ml for less severe/complicated infections such as cellulitis or UTI and 15-20 mcg/ml for more severe/complicated infections such as bacteremia/sepsis, osteomyelitis, pneumonia or meningitis. Goal trough ranges should take into account indication, patient-specific factors and organism FRAN. VANCOMYCIN STANDARED DRUG THERAPY TROUGH LEVEL: 5.0 - 15.0 mg/L VANCOMYCIN HIGH INTENSITY THERAPY TROUGH LEVEL: 15.0 - 20.0 mg/L High Intensity therapy recommended for serious life threatening infections include: - Meningitis -Endocarditis -Pneumonia (Ventilator/Healtcare Associated) -Sepsis PLEASE CONTACT PHARMACY SERVICES (#[id number]) FOR INTERPRETATION OF RESULTS. Performed By: #### L 501.8814, L500.4050, L100.0500 #### [facility] [address] [place], [address] 36on 07-11-2024 36 Patient is currently at [facility] and will be discharging to [facility] [phone], Opat faxed to [facility]. Will follow up once patient discharges. Follow up appointment scheduled for 07/16 @130pm [facility] 3607-10-2024 36 [facility] 36on 07-09-2024 36 Name of Caller: Tito Contact Reason for Appointment: Patient will be discharged from [facility]. They are requesting a callback to schedule patient follow up. Please advise. Office Name: Urology [facility] 36on 07-02-2024 36 We have been unable to reach your patient to schedule their testing. Test Name: CT 1st Attempt: 07/01 unable to lvm 2nd Attempt: 07/02 unable to lvm [facility] Progress Noteon 06-24-2024 Progress Note Seen at [facility] Progress Noteon 06-23-2024 Progress Note Seen at [facility] Progress Noteon 06-20-2024 [facility] Note [facility] 06/20 [facility] Progress Noteon 06-19-2024 [facility] Note [facility] 06/19 [facility] Progress Noteon 06-18-2024 Progress Note [facility]. Complete documentation under [facility] EMR. [facility] Progress Noteon 06-16-2024 Progress Note Pt seen at [facility]. Complete documentation under [facility] EMR. [facility] Progress Noteon 06-13-2024 Progress Note Pt seen at [facility]. Complete documentation under [facility] EMR. [facility] Progress Noteon 06-12-2024 Progress Note Pt seen at [facility]. Complete documentation under [facility] EMR. Normal [facility] Progress Noteon 06-10-2024 Progress Note Pt seen at [facility]. Complete documentation under [facility] EMR. Normal [facility] Progress Noteon 06-09-2024 Progress Note Pt seen at [facility]. Complete documentation under [facility] EMR. Normal [facility] 36on 06-07-2024 36 Normal [facility] 30on 06-06-2024 30 Normal [facility] [id number] 06-06-2024 [id number] Normal [facility] [id number] Normal [facility] [id number] [facility] [id number] Transport requested in [employer]. Awaiting time confirmation. [facility] [id number] Normal [facility] 36on 06-06-2024 36 Consult Received. Normal [facility] CBC W Auto Differential pane l (Bld)on 06-06-2024 Basophils (Bld) [#/Vol] 0 10*3/uL 0.0 - 0.2 10*3/uL [facility] Basophils/100 WBC (Bld) 0.6 % 0.0 - 2.0 % [facility] Eosinophils (Bld) [#/Vol] 0.1 10*3/uL 0.0 - 0.5 10*3/uL [facility] Eosinophils/100 WBC (Bld) 2.2 % 0.0 - 6.0 % [facility] Erythrocyte distribution width (RBC) [Ratio] 15.2 % High 11.5 - 15.0 % [facility] Hematocrit (Bld) [Volume fraction] 23.8 % Low 40.0 - 52.0 % [facility] Hemoglobin (Bld) [Mass/Vol] 7.6 g/dL Low 13.0 - 18.0 g/dL [facility] Immature granulocytes (Bld) [#/Vol] 0 10*3/uL NINF - 0.1 10*3/uL [facility] Immature granulocytes/100 WBC (Bld) 0.6 % 0.0 - 2.0 % [facility] Interpretation and review of laboratory results Abnormal [facility] Lymphocytes (Bld) [#/Vol] 0.7 10*3/uL Low 1.0 - 4.3 10*3/uL [facility] Lymphocytes/100 WBC (Bld) 22.3 % 15.0 - 45.0 % [facility] MCH (RBC) [Entitic mass] 26.1 pg 26. 0 - 34.0 pg [facility] MCHC (RBC) [Mass/Vol] 31.9 % 30.5 - 36.0 % [facility] MCV (RBC) [Entitic vol] 81.8 fL 77.0 - 99.0 fL [facility] Monocytes (Bld) [#/Vol] 0.2 10*3/uL 0.0 - 0.9 10*3/uL [facility] Monocytes/100 WBC (Bld) 7.5 % 5.0 - 13.0 % [facility] Neutrophils (Bld) [#/Vol] 2.1 10*3/uL 1.8 - 7.5 10*3/uL [facility] Neutrophils/100 WBC (Bld) 66.8 % 38.0 - 82.0 % [facility] Nucleated RBC/100 WBC (Bld) [Ratio] 0 % [facility] Platelet mean volume (Bld) [Entitic vol] 9.7 fL 9.0 - 12.7 fL [facility] Platelets (Bld) [#/Vol] 180 10*3/uL 140 - 440 10*3/uL [facility] RBC (Bld) [#/Vol] 2.91 10*6/uL Low 4.40 - 5.9 0 10*6/uL [facility] WBC (Bld) [#/Vol] 3.2 10*3/uL Low 3.6 - 10.7 10*3/uL [facility] CBC WITH AUTO DIFFERENTIALon 06-06-2024 Basophils (Bld) [#/Vol] 0.0 10*3/uL Normal 0.0-0.2 [facility] Comment on above: Performed By: #### L [id number] ####[place] Installer: AKNDY VILLALOBOS ([id number])[facility] ([address] Basophils/100 WBC (Bld) 0.6 % Normal 0.0-2.0 [facility] Comment on above: Performed By: #### L [id number] ####[place] Installer: KANDY VILLALOBOS ([id number])[facility])[address] [place] [address] Eosinophils (Bld) [#/Vol] 0.1 10*3/uL Normal 0.0-0.5 [facility] Comment on above: Performed By: #### L [id number] ####[place] Installer: KANDY VILLALOBOS ([id number])[facility])[address] [place] [address] Eosinophils/100 WBC (Bld) 2.2 % Normal 0.0-6.0 [facility] Comment on above: Performed By: #### L [id number] ####[place] Installer: KANDY VILLALOBOS ([id number])[address] Erythrocyte distribution width (RBC) [Ratio] 15.2 % High 11.5-15.0 [facility] Comment on above: Performed By: #### L [id number] ####[place] Installer: KANDY VILLALOBOS ([id number])[address] Hematocrit (Bld) [Volume fraction] 23.8 % Low 40.0-52.0 [facility] Comment on above: Performed By: #### L [id number] ####[place] Installer: KANDY VILLALOBOS ([id number])[facility])[address] [place] [address] Hemoglobin (Bld) [Mass/Vol] 7.6 g/dL Low 13.0-18.0 [facility] Comment on above: Performed By: #### L [id number] ####[place] Installer: KANDY VILLALOBOS ([id number])[address] IMMATURE GRANS % 0.6 % Normal 0.0-2.0 [facility] Comment on above: Performed By: #### L [id number] ####[place] Installer: KANDY [id number])[facility])[address] [place] [address] IMMATURE GRANS ABSOLUTE 0.0 10*3/uL Normal <0.1 [facility] Comment on above: Performed By: #### L [id number] ####[place] Installer: KANDY VILLALOBOS ([id number])[facility])[address] [place] [address] Lymphocytes (Bld) [#/Vol] 0.7 10*3/uL Low 1.0-4.3 [facility] Comment on above: Performed By: #### L [id number] ####[place] Installer: KANDY VILLALOBOS ([id number])[facility])[address] [place] [address] Lymphocytes/100 WBC (Bld) 22.3 % Normal 15.0-45.0 [facility] Comment on above: Performed By: #### L [id number] ####[place] Installer: KANDY VILLALOBOS ([id number])[facility])[address] [place] [address] MCH (RBC) [Entitic mass] 26.1 pg Normal 26.0-34.0 [facility] Comment on above: Performed By: #### L [id number] ####[place] Installer: KANDY VILLALOBOS ([id number])[facility])[address] [place] [address] MCHC 31.9 % Normal 30.5-36.0 [facility] Comment on above: Performed By: #### L [id number] ####[place] Installer: KANDY VILLALOBOS ([id number])[facility])[address] [place] [address] MCV (RBC) [Entitic vol] 81.8 fL Normal 77.0-99.0 [facility] Comment on above: Performed By: #### L [id number] ####[place] Installer: KANDY VILLALOBOS ([id number])[facility])[address] [place] [address] Monocytes (Bld) [#/Vol] 0.2 10*3/uL Normal 0.0-0.9 [facility] Comment on above: Performed By: #### L [id number] ####[place] Installer: KANDY VILLALOBOS ([id number])[facility] ([facility])[address] [place] [address] Monocytes/100 WBC (Bld) 7.5 % Normal 5.0-13.0 [facility] Comment on above: Performed By: #### L [id number] ####[place] Installer: KANDY VILLALOBOS ([id number])[facility] ([facility])[address] [place] [address] NEUTROPHILS ABSOLUTE 2.1 10*3/uL Normal 1.8-7.5 [facility] Comment on above: Performed By: #### L [id number] ####[place] Installer: KANDY VILLALOBOS ([id number])[facility] ([facility])[address] [place] [address] Neutrophils/100 WBC (Bld) 66.8 % Normal 38.0-82.0 [facility] Comment on above: Performed By: #### L [id number] ####[place] Installer: KANDY VILLALOBOS ([id number])[facility] ([facility])[address] [place] [address] NRBC 0.0 /100 WBCs Normal 0.0-2.0 [facility] Comment on above: Performed By: #### L [id number] ####[place] Installer: KANDY VILLALOBOS ([id number])[facility] ([facility])[address] [place] [address] Platelet mean volume (Bld) [Entitic vol] 9.7 fL Normal 9.0-12.7 [facility] Comment on above: Performed By: #### L [id number] ####[place] Installer: KANDY VILLALOBOS ([id number])[facility] ([facility])[address] [place] [address] [place] Platelets (Bld) [#/Vol] 180 10*3/uL Normal 140-440 [facility] Comment on above: Performed By: #### L [id number] ####[place] Installer: KANDY VILLALOBOS ([id number])[facility] ([facility])[address] [place] [address] RBC (Bld) [#/Vol] 2.91 10*6/uL Low 4.40-5.90 [facility] Comment on above: Performed By: #### L [id number] ####[place] Installer: KANDY VILLALOBOS ([id number])[facility] ([facility])[address] [place] [address] WBC (Bld) [#/Vol] 3.2 10*3/uL Low 3.6-10.7 [facility] Comment on above: Performed By: #### L [id number] ####[place] Installer: KANDY VILLALOBOS ([id number])[facility])[address] [place] [address] COMPREHENSIVE METABOLIC PANE Prasad 06-06-2024 Albumin [Mass/Vol] 1.5 g/dL Low 3.5-5.0 [facility] Comment on above: Performed By: #### L [id number] ####[place] Installer: KANDY VILLALOBOS ([id number])[facility])[address] [place] [address] ALP [Catalytic activity/Vol] 202 U/L High 40-150 [facility] Comment on above: Performed By: #### L [id number] ####[place] Installer: KANDY VILLALOBOS ([id number])[facility])[address] [place] [address] ALT [Catalytic activity/Vol] U/L Normal <40 [facility] Comment on above: Performed By: #### L [id number] ####[place] Installer: KANDY VILLALOBOS ([id number])[facility])[address] [place] [address] Anion gap [Moles/Vol] 8 mmol/L Normal 3-13 [facility] Comment on above: Performed By: #### L [id number] ####[place] Installer: KANDY VILLALOBOS ([id number])[facility] [place] [address] AST [Catalytic activity/Vol] 24 U/L Normal <34 [facility] Comment on above: Performed By: #### L [id number] ####[place] Installer: KANDY VILLALOBOS ([id number])[facility] ([facility])[address] [place] [address] Bilirubin [Mass/Vol] 0.2 mg/dL Normal <1.2 [facility] Comment on above: Performed By: #### L [id number] ####[place] Installer: KANDY VILLALOBOS ([id number])[facility] ([facility])[address] [place] [address] Calcium [Mass/Vol] 7.3 mg/dL Low 8.4-10.2 [facility] Comment on above: Performed By: #### L [id number] ####[place] Installer: KANDY VILLALOBOS ([id number])[facility] ([facility])[address] [place] [address] Chloride [Moles/Vol] 104 mmol/L Normal 98-107 [facility] Comment on above: Performed By: #### L [id number] ####[place] Installer: KANDY VILLALOBOS ([id number])[facility] ([facility])[address] [place] [address] CO2 [Moles/Vol] 22 mmol/L Normal 22-29 [facility] Comment on above: Performed By: #### L [id number] ####[place] Installer: KANDY VILLALOBOS ([id number])[facility] ([facility])[address] [place] [address] Creatinine [Mass/Vol] 0.63 mg/dL Low 0.72-1.25 [facility] Comment on above: Performed By: #### L [id number] ####[place] Installer: KANDY VILLALOBOS ([id number])[facility])[address] [place] [address] GLOMERULAR FILTRATION RATE ML/MIN/1.73 SQ M.PREDICTED >90.0 Normal >60.0 [facility] Comment on above: Result Comment: Calc ulation based on the Chronic Kidney Disease Epidemiology Collaboration (CKD-EPI) equation refit without adjustment for race Performed By: #### L [id number] ####[place] Installer: KANDY VILLALOBOS ([id number])[facility])[address] [place] [address] Glucose [Mass/Vol] 209 mg/dL High 74-100 [facility] Comment on above: Performed By: #### L [id number] ####[place] Installer: KANDY VILLALOBOS ([id number])[facility])[address] [place] [address] Potassium [Moles/Vol] 3.8 mmol/L Normal 3.5-5.1 [facility] Comment on above: Result Comment: [facility] potassium values may be up to 0.5 mmol/L lower than serum values. Performed By: #### L [id number] ####[place] Installer: KANDY VILLALOBOS ([id number])[facility])[address] [place] [address] Protein [Mass/Vol] 5.6 g/dL Low 6.4-8.3 [facility] Comment on above: Performed By: #### L [id number] ####[place] Installer: KANDY VILLALOBOS ([id number])[facility])[address] [place] [address] Sodium [Moles/Vol] 134 mmol/L Low 136-145 [facility] Comment on above: Performed By: #### L [id number] ####[place] Installer: KANDY VILLALOBOS ([id number])[facility])[address] [place] [address] Urea nitrogen [Mass/Vol] 7 mg/dL Low 8-21 [facility] Comment on above: Performed By: #### L [id number] ####[place] Installer: KANDY VILLALOBOS ([id number])[facility])[address] [place] [address] Comprehensive metabolic 1998 panelon 06-06-2024 Albumin [Mass/Vol] 1.5 g/dL Low 3.5 - 5.0 g/dL [facility] ALP [Catalytic activity/Vol] 202 U/L High 40 - 150 U/L [facility] ALT [Catalytic activity/Vol] U/L NINF - 40 U/L [facility] Anion gap [Moles/Vol] 8 mmol/L 3 - 13 mmol/L [facility] AST [Catalytic activity/Vol] 24 U/L NINF - 34 U/L [facility] Bilirubin [Mass/Vol] 0.2 mg/dL NINF - 1.2 mg/dL [facility] Calcium [Mass/Vol] 7.3 mg/dL Low 8.4 - 10. 2 mg/dL [facility] Chloride [Moles/Vol] 104 mmol/L 98 - 10 7 mmol/L [facility] CO2 [Moles/Vol] 22 mmol/L 22 - 29 mmol/L [facility] Creatinine [Mass/Vol] 0.63 mg/dL Low 0.72 - 1.25 mg/dL [facility] GFR/1.73 sq M.predicted (S/P/Bld) [Vol rate/Area] - PINF [facility] Comment on above: Calculation based on the Chronic Kidney Disease Epidemiology Collaboration (CKD-EPI) equation refit without adjustment for race Glucose [Mass/Vol] 209 mg/dL High 74 - 100 mg/dL [facility] Interpretation and review of laboratory results Abnormal [facility] Potassium [Moles/Vol] 3.8 mmol/L 3.5 - 5.1 mmol/L [facility] Comment on above: Plasma potassium duy ues may be up to 0.5 mmol/L lower than serum values. Protein [Mass/Vol] 5.6 g/dL Low 6.4 - 8.3 g/dL [facility] Sodium [Moles/Vol] 134 mmol/L Low 136 - 145 mmol/L [facility] Urea nitrogen [Mass/Vol] 7 mg/dL Low 8 - 21 mg/d L [facility] Consulton 06-06-2024 Consult Normal [facility] Laboratory - Chemistry and C hemistry - challengeon 06-06-2024 Glucose [Mass/Vol] 270 mg/dL High 70 - 100 mg/dL [facility] Glucose [Mass/Vol] 240 mg/dL High 70 - 100 mg/dL [facility] Glucose [Mass/Vol] 201 mg/dL High 70 - 100 mg/dL [facility] Laboratory - Coagulationon 0 06-06-2024 aPTT Coag (PPP) [Time] 28.4 s 20.0 - 30.5 s [facility] INR Coag (PPP) [Relative time] 1 {INR} 0.9 - 1.1 [facility] Comment on above: Recommended Anticoag ulant Therapy: SEE BELOW ----- INR of 2.0 - 3.0 : - Prophylaxis of Venous Thrombosis (high-risk surgery) - Treatment of Venous Thrombosis - Treatment of Pulmonary Embolism (Includes tissue heart valves, Acute Myocardial Infarction to prevent systemic embolism, Valvular Heart Disease, and Atrial Fibrillation) ----- INR of 2.5 - 3.5 : - Mechanical Prosthetic Valves (high risk) - If oral anticoagulant therapy is used to prevent Myocardial Infarction PT Coag (Bld) [Time] 11.6 s 9.0 - 12.0 s [facility] - Drug toxicology on 06-06-2024 Vancomycin trough [Mass/Vol] 23.3 ug/mL [facility] No Panel Informationon 06-06 Interpretation and review of laboratory results Abnormal [facility] Performed by: [facility], [address] [place] [address] CLIA ID: [id number] [facility] Interpretation and review of laboratory results Abnormal [facility] Performed by: [facility], [address] [place] [address] CLIA ID: [id number] [facility] Interpretation and review of laboratory results Abnormal [facility] Performed by: [facility], [address] [place] [address] CLIA ID: [id number] [facility] Interpretation and review of laboratory results Normal [facility] PROTIME AND APTTon aPTT Coag (Bld) [Time] 28.4 s Normal 20.0-30.5 [facility] Comment on above: Performed By: #### L [id number] ####[place] Installer: KANDY VILLALOBOS ([id number])[facility] ([facility])[address] [place] [address] INR Coag (PPP) [Relative time] 1.0 {INR} Normal 0.9-1.1 [facility] Comment on above: Result Comment: Catracho mmended Anticoagulant Therapy: SEE BELOW----- INR of 2.0 - 3.0 : - Prophylaxis of Venous Thrombosis (high-risk surgery) - Treatment of Venous Thrombosis - Treatment of Pulmonary Embolism (Includes tissue heart valves, Acute Myocardial Infarction to prevent systemic embolism, Valvular Heart Disease, and Atrial Fibrillation)----- INR of 2.5 - 3.5 : - Mechanical Prosthetic Valves (high risk) - If oral anticoagulant therapy is used to prevent Myocardial Infarction Performed By: #### L [id number] ####[place] Installer: KANDY VILLALOBOS ([id number])[facility] [place] [address] PT Coag (PPP) [Time] 11.6 s Normal 9.0-12.0 [facility] Comment on above: Performed By: #### L [id number] ####[place] Installer: KANDY VILLALOBOS ([id number])[facility] [place] [address] Progress Noteon 06-06-2024 Progress Note Normal [facility] Progress Note Normal [facility] Progress Note Nutrition rescreen completed. Patient referred to the Dietitian due to A1c of 9.6, and infected wound. Dorys Nance, PAVAN Normal [facility] Progress Note Normal [facility] Progress Note Normal [facility] Progress Note Normal [facility] VANCOMYCIN, AUC TIMED DOSING on 06-06-2024 VANCOMYCIN, AUC 23.3 ug/mL Normal [facility] Comment on above: Result Comment: ISSAC R COMMENTS:Please draw random level at least >2 hours after the end of the last vancomycin infusion, or 30-minutes before next infusion.Toxicity is seen at concentrations >80-100 ug/mLTherapeutic (Peak) range: 20-40Therapeutic (Trough) range: 5-10 Performed By: #### L [id number] ####Marble Installer: KANDY VILLALOBOS ([id number])[facility] ([facility])[address] [place] [address] Vancomycin trough [Mass/Vol] on 06-06-2024 Toxicity is seen at concentrations >80-100 ug/mL Therapeutic (Peak) range: 20-40 Therapeutic (Trough) range: 5-10 [facility] 30on 06-05-2024 30 Normal [facility] 36on 06-05-2024 36 Normal [facility] CBC W Auto Differential pane l (Bld)on 06-05-2024 Basophils (Bld) [#/Vol] 0 10*3/uL 0.0 - 0.2 10*3/uL [facility] Basophils/100 WBC (Bld) 0.8 % 0.0 - 2.0 % [facility] Eosinophils (Bld) [#/Vol] 0.1 10*3/uL 0.0 - 0.5 10*3/uL [facility] Eosinophils/100 WBC (Bld) 1.4 % 0.0 - 6.0 % [facility] Erythrocyte distribution width (RBC) [Ratio] 14.9 % 11.5 - 15.0 % [facility] Hematocrit (Bld) [Volume fraction] 24.2 % Low 40.0 - 52.0 % [facility] Hemoglobin (Bld) [Mass/Vol] 7.6 g/dL Low 13.0 - 18.0 g/dL [facility] Immature granulocytes (Bld) [#/Vol] 0 10*3/uL NINF - 0.1 10*3/uL [facility] Immature granulocytes/100 WBC (Bld) 0.3 % 0.0 - 2.0 % [facility] Interpretation and review of laboratory results Abnormal [facility] Lymphocytes (Bld) [#/Vol] 1 10*3/uL 1.0 - 4.3 10*3/uL [facility] Lymphocytes/100 WBC (Bld) 26.8 % 15.0 - 45.0 % [facility] MCH (RBC) [Entitic mass] 26.1 pg 26. 0 - 34.0 pg [facility] MCHC (RBC) [Mass/Vol] 31.4 % 30.5 - 36.0 % [facility] MCV (RBC) [Entitic vol] 83.2 fL 77.0 - 99.0 fL [facility] Monocytes (Bld) [#/Vol] 0.3 10*3/uL 0.0 - 0.9 10*3/uL [facility] Monocytes/100 WBC (Bld) 8.1 % 5.0 - 13.0 % [facility] Neutrophils (Bld) [#/Vol] 2.3 10*3/uL 1.8 - 7.5 10*3/uL [facility] Neutrophils/100 WBC (Bld) 62.6 % 38.0 - 82.0 % [facility] Nucleated RBC/100 WBC (Bld) [Ratio] 0 % [facility] Platelet mean volume (Bld) [Entitic vol] 9.2 fL 9.0 - 12.7 fL [facility] Platelets (Bld) [#/Vol] 172 10*3/uL 140 - 440 10*3/uL [facility] RBC (Bld) [#/Vol] 2.91 10*6/uL Low 4.40 - 5.9 0 10*6/uL [facility] WBC (Bld) [#/Vol] 3.7 10*3/uL 3.6 - 10.7 10*3/uL [facility] CBC WITH AUTO DIFFERENTIALon 06-05-2024 Basophils (Bld) [#/Vol] 0.0 10*3/uL Normal 0.0-0.2 [facility] Comment on above: Performed By: #### L [id number] ####Marble Installer: KANDY VILLALOBOS ([id number])[address] Basophils/100 WBC (Bld) 0.8 % Normal 0.0-2.0 [facility] Comment on above: Performed By: #### L [id number] ####Marble Installer: KANDY VILLALOBOS ([id number])[facility])[address] [place] [address] Eosinophils (Bld) [#/Vol] 0.1 10*3/uL Normal 0.0-0.5 [facility] Comment on above: Performed By: #### L [id number] ####Marble Installer: KANDY VILLALOBOS ([id number])[facility])[address] [place] [address] Eosinophils/100 WBC (Bld) 1.4 % Normal 0.0-6.0 [facility] Comment on above: Performed By: #### L [id number] ####[employer] Installer: KANDY VILLALOBOS ([id number])[address] Erythrocyte distribution width (RBC) [Ratio] 14.9 % Normal 11.5-15.0 [facility] Comment on above: Performed By: #### L [id number] ####[place] Installer: KANDY VILLALOBOS ([id number])[address] Hematocrit (Bld) [Volume fraction] 24.2 % Low 40.0-52.0 [facility] Comment on above: Performed By: #### L [id number] ####[place] Installer: KANDY VILLALOBOS ([id number])[address] Hemoglobin (Bld) [Mass/Vol] 7.6 g/dL Low 13.0-18.0 [facility] Comment on above: Performed By: #### L [id number] ####[employer] Installer: KANDY VILLALOBOS ([id number])[address] IMMATURE GRANS % 0.3 % Normal 0.0-2.0 [facility] Comment on above: Performed By: #### L [id number] ####Marble Installer: KANDY VILLALOBOS ([id number])[address] IMMATURE GRANS ABSOLUTE 0.0 10*3/uL Normal <0.1 [facility] Comment on above: Performed By: #### L [id number] ####Marble Installer: KANDY VILLALOBOS ([id number])[address] Lymphocytes (Bld) [#/Vol] 1.0 10*3/uL Normal 1.0-4.3 [facility] Comment on above: Performed By: #### L [id number] ####Marble Installer: KANDY [id number])[facility])[address] [place] [address] Lymphocytes/100 WBC (Bld) 26.8 % Normal 15.0-45.0 [facility] Comment on above: Performed By: #### L [id number] ####Marble Installer: KANDY VILLALOBOS ([id number])[facility])[address] [place] [address] MCH (RBC) [Entitic mass] 26.1 pg Normal 26.0-34.0 [facility] Comment on above: Performed By: #### L [id number] ####Marble Installer: KANDY VILLALOBOS ([id number])[facility])[address] [place] [address] MCHC 31.4 % Normal 30.5-36.0 [facility] Comment on above: Performed By: #### L [id number] ####Marble Installer: KANDY VILLALOBOS ([id number])[facility] ([facility])[address] [place] [address] MCV (RBC) [Entitic vol] 83.2 fL Normal 77.0-99.0 [facility] Comment on above: Performed By: #### L [id number] ####Marble Installer: KANDY VILLALOBOS ([id number])[facility])[address] [place] [address] Monocytes (Bld) [#/Vol] 0.3 10*3/uL Normal 0.0-0.9 [facility] Comment on above: Performed By: #### L [id number] ####Mar[employer] Installer: KANDY VILLALOBOS ([id number])[facility])[address] [place] [address] Monocytes/100 WBC (Bld) 8.1 % Normal 5.0-13.0 [facility] Comment on above: Performed By: #### L [id number] ####Marble Installer: KANDY VILLALOBOS ([id number])[facility])[address] [place] [address] NEUTROPHILS ABSOLUTE 2.3 10*3/uL Normal 1.8-7.5 [facility] Comment on above: Performed By: #### L [id number] ####Marble Installer: KANDY VILLALOBOS ([id number])[facility] ([facility])[address] [place] [address] Neutrophils/100 WBC (Bld) 62.6 % Normal 38.0-82.0 [facility] Comment on above: Performed By: #### L [id number] ####Marble Installer: KANDY VILLALOBOS ([id number])[facility] ([facility])[address] [place] [address] NRBC 0.0 /100 WBCs Normal 0.0-2.0 [facility] Comment on above: Performed By: #### L [id number] ####Marble Installer: KANDY VILLALOBOS ([id number])[facility] ([facility])[address] [place] [address] Platelet mean volume (Bld) [Entitic vol] 9.2 fL Normal 9.0-12.7 [facility] Comment on above: Performed By: #### L [id number] ####Marble Installer: KANDY VILLALOBOS ([id number])[facility] ([facility])[address] [place] [address] [place] Platelets (Bld) [#/Vol] 172 10*3/uL Normal 140-440 [facility] Comment on above: Performed By: #### L [id number] ####Marble Installer: KANDY VILLALOBOS ([id number])[facility] ([facility])[address] [place] [address] [place] RBC (Bld) [#/Vol] 2.91 10*6/uL Low 4.40-5.90 [facility] Comment on above: Performed By: #### L [id number] ####Marble Installer: KANDY VILLALOBOS ([id number])[facility] ([facility])[address] [place] [address] [place] WBC (Bld) [#/Vol] 3.7 10*3/uL Normal 3.6-10.7 [facility] Comment on above: Performed By: #### L [id number] ####Marble Installer: KANDY VILLALOBOS ([id number])[facility])[address] [place] [address] COMPREHENSIVE METABOLIC PANE Prasad 06-05-2024 Albumin [Mass/Vol] 1.4 g/dL Low 3.5-5.0 [facility] Comment on above: Performed By: #### L [id number] ####Marble Installer: KANDY VILLALOBOS ([id number])[facility] ([facility])[address] [place] [address] ALP [Catalytic activity/Vol] 195 U/L High 40-150 [facility] Comment on above: Performed By: #### L [id number] ####Marble Installer: KANDY VILLALOBOS ([id number])[facility] ([facility])[address] [place] [address] ALT [Catalytic activity/Vol] U/L Normal <40 [facility] Comment on above: Performed By: #### L [id number] ####Marble Installer: KANDY VILLALOBOS ([id number])[facility] ([facility])[address] [place] [address] Anion gap [Moles/Vol] 6 mmol/L Normal 3-13 [facility] Comment on above: Performed By: #### L [id number] ####Marble Installer: KANDY VILLALOBOS ([id number])[facility] ([facility])[address] [place] [address] AST [Catalytic activity/Vol] 14 U/L Normal <34 [facility] Comment on above: Performed By: #### L [id number] ####Marble Installer: KANDY VILLALOBOS ([id number])[facility] ([facility])[address] [place] [address] Bilirubin [Mass/Vol] 0.4 mg/dL Normal <1.2 [facility] Comment on above: Performed By: #### L [id number] ####Marble Installer: KANDY VILLALOBOS ([id number])[facility])[address] [place] [address] Calcium [Mass/Vol] 7.4 mg/dL Low 8.4-10.2 [facility] Comment on above: Performed By: #### L [id number] ####Marble Installer: AKNDY VILLALOBOS ([id number])[facility])[address] [place] [address] Chloride [Moles/Vol] 106 mmol/L Normal 98-107 [facility] Comment on above: Performed By: #### L [id number] ####Marble Installer: KANDY VILLALOBOS ([id number])[facility])[address] [place] [address] CO2 [Moles/Vol] 23 mmol/L Normal 22-29 [facility] Comment on above: Performed By: #### L [id number] ####Marble Installer: KANDY VILLALOBOS ([id number])[facility] ([facility])[address] [place] [address] Creatinine [Mass/Vol] 0.53 mg/dL Low 0.72-1.25 [facility] Comment on above: Performed By: #### L [id number] ####Marble Installer: KANDY VILLALOBOS ([id number])[facility] ([facility])[address] [place] [address] GLOMERULAR FILTRATION RATE ML/MIN/1.73 SQ M.PREDICTED >90.0 Normal >60.0 [facility] Comment on above: Result Comment: Calc ulation based on the Chronic Kidney Disease Epidemiology Collaboration (CKD-EPI) equation refit without adjustment for race Performed By: #### L [id number] ####Marble Installer: KANDY VILLALOBOS ([id number])[facility])[address] [place] [address] [place] Glucose [Mass/Vol] 105 mg/dL High 74-100 [facility] Comment on above: Performed By: #### L [id number] ####Marble Installer: KANDY VILLALOBOS ([id number])[facility] ([facility])[address] [place] [address] [place] Potassium [Moles/Vol] 4.0 mmol/L Normal 3.5-5.1 [facility] Comment on above: Result Comment: [facility] potassium values may be up to 0.5 mmol/L lower than serum values. Performed By: #### L [id number] ####Marble Installer: KANDY VILLALOBOS ([id number])[facility] ([facility])[address] [place] [address] Protein [Mass/Vol] 5.5 g/dL Low 6.4-8.3 [facility] Comment on above: Performed By: #### L [id number] ####Marble Installer: KANDY VILLALOBOS ([id number])[facility] ([facility])[address] [place] [address] Sodium [Moles/Vol] 135 mmol/L Low 136-145 [facility] Comment on above: Performed By: #### L [id number] ####Marble Installer: KANDY VILLALOBOS ([id number])[facility] ([facility])[address] [place] [address] Urea nitrogen [Mass/Vol] 8 mg/dL Normal 8-21 [facility] Comment on above: Performed By: #### L [id number] ####Marble Installer: KANDY VILLALOBOS ([id number])[facility] ([facility])[address] [place] [address] CT GUIDED ABSCESS FLUID [place] ECTION DRAINAGEon 06-05-2024 CT GUIDED ABSCESS FLUID COLLECTION DRAINAGE Normal [facility] CULTURE ANAEROBICon 06-06-19 25 CULTURE ANAEROBIC Normal [facility] Comment on above: Performed By: #### L [id number] ####Marble Installer: KANDY VILLALOBOS ([id number])[facility] ([facility])[address] [place] [address] CULTURE, AEROBIC BACTERIA WI TH GRAM STAINon 06-05-2024 CULTURE, AEROBIC BACTERIA WITH GRAM STAIN Normal [facility] Comment on above: Performed By: #### L [id number] ####Marble Installer: KANDY VILLALOBOS ([id number])[facility] ([facility])[address] [place] [address] Comprehensive metabolic 1998 panelon 06-05-2024 Albumin [Mass/Vol] 1.4 g/dL Low 3.5 - 5.0 g/dL [facility] ALP [Catalytic activity/Vol] 195 U/L High 40 - 150 U/L [facility] ALT [Catalytic activity/Vol] U/L NINF - 40 U/L [facility] Anion gap [Moles/Vol] 6 mmol/L 3 - 13 mmol/L [facility] AST [Catalytic activity/Vol] 14 U/L NINF - 34 U/L [facility] Bilirubin [Mass/Vol] 0.4 mg/dL NINF - 1.2 mg/dL [facility] Calcium [Mass/Vol] 7.4 mg/dL Low 8.4 - 10. 2 mg/dL [facility] Chloride [Moles/Vol] 106 mmol/L 98 - 10 7 mmol/L [facility] CO2 [Moles/Vol] 23 mmol/L 22 - 29 mmol/L [facility] Creatinine [Mass/Vol] 0.53 mg/dL Low 0.72 - 1.25 mg/dL [facility] GFR/1.73 sq M.predicted (S/P/Bld) [Vol rate/Area] - PINF [facility] Comment on above: Calculation based on the Chronic Kidney Disease Epidemiology Collaboration (CKD-EPI) equation refit without adjustment for race Glucose [Mass/Vol] 105 mg/dL High 74 - 100 mg/dL [facility] Interpretation and review of laboratory results Abnormal [facility] Potassium [Moles/Vol] 4 mmol/L 3.5 - 5.1 mmol/L [facility] Comment on above: Plasma potassium duy ues may be up to 0.5 mmol/L lower than serum values. Protein [Mass/Vol] 5.5 g/dL Low 6.4 - 8.3 g/dL [facility] Sodium [Moles/Vol] 135 mmol/L Low 136 - 145 mmol/L [facility] Urea nitrogen [Mass/Vol] 8 mg/dL 8 - 21 mg/d L [facility] Consulton 06-05-2024 Consult Normal [facility] Consult Normal [facility] Consult Normal [facility] Consult Normal [facility] Laboratory - Chemistry and C hemistry - challengeon 06-05-2024 Glucose [Mass/Vol] 227 mg/dL High 70 - 100 mg/dL [facility] Glucose [Mass/Vol] 97 mg/dL 70 - 100 mg/dL [facility] Glucose [Mass/Vol] 130 mg/dL High 70 - 100 mg/dL [facility] Glucose [Mass/Vol] 127 mg/dL High 70 - 100 mg/dL [facility] Laboratory - Coagulationon 0 06-05-2024 aPTT Coag (PPP) [Time] 27.2 s 20.0 - 30.5 s [facility] INR Coag (PPP) [Relative time] 1.1 {INR} 0.9 - 1.1 [facility] Comment on above: Recommended Anticoag ulant Therapy: SEE BELOW ----- INR of 2.0 - 3.0 : - Prophylaxis of Venous Thrombosis (high-risk surgery) - Treatment of Venous Thrombosis - Treatment of Pulmonary Embolism (Includes tissue heart valves, Acute Myocardial Infarction to prevent systemic embolism, Valvular Heart Disease, and Atrial Fibrillation) ----- INR of 2.5 - 3.5 : - Mechanical Prosthetic Valves (high risk) - If oral anticoagulant therapy is used to prevent Myocardial Infarction PT Coag (Bld) [Time] 12.1 s High 9.0 - 12.0 s [facility] Laboratory - Drug toxicology on 06-05-2024 Vancomycin trough [Mass/Vol] 23.2 ug/mL [facility] No Panel Informationon 06-05 Interpretation and review of laboratory results Abnormal [facility] Performed by: [facility], [address] [place] [address] CLIA ID: [id number] [facility] Technically successful CT-guided drainage tube placement of right gluteal abscess. Report Dictated on Electronically Signed By: Miranda Dong DO Electronically Signed Date/Time: 06/05/2024 5:18 PM [facility] Patient Name: MIRANDA RO : 1980 [facility]#: [id number] Exam Date/Time: 06/05/2024 12:59 Procedure: CT GUIDED ABSCESS FLUID COLLECTION DRAINAGE Ordering Provider: HITCHCOCK YASMIN Reason For Exam: Drainage of abscess around R acetabulum/right hip. Please place drain if able CT GUIDED ABSCESS DRAINAGE: CLINICAL INDICATION: Right gluteal soft tissue fluid collection/abscess. Drainage tube placement is requested. ANESTHESIA: Moderate conscious sedation was provided with 0.5 mg Versed and 50 mcg Fentanyl. An independent trained observer monitored the patient during the procedure. The intra service time 30 was minutes. Cardiorespiratory monitoring was provided and the patient left department in stable condition. TECHNIQUE: 3 mm axial sections were obtained through the pelvic fluid collection. Dose reduction was employed with automated exposure control. PROCEDURE: Following discussion with the patient regarding risks, benefits and alternatives, the skin was sterilely prepared and local anesthesia was applied. Patient was placed in the LPO position on the CT table. Axial CT images of the pelvis were performed for the purpose of localization of the fluid collection. CT shows a right posterolateral subligamentous lurdes fluid collection measuring 4.9 x 4 cm fluid collection anterior to the right gluteus lurdes muscle. Also, there is smaller fluid collection along the right medial acetabular location. Under CT guidance, a 20 gauge Yueh needle was advanced into the collection in the right posterolateral gluteal fluid collection from an anterolateral approach. Aspiration was performed with a yield of 8ccs of turbid white pus. Subsequently, a 60cm Amplatz guidewire was advanced, and following skin track dilation an 10 [place] multipurpose drainage catheter was advanced into the fluid collection. The locking pigtail catheter was secured in place and left suction gravity drainage. The specimen was sent for microbiology evaluation, including culture and sensitivity. The patient tolerated procedure well. [facility] Miranda Dong DO - 06/05/2024 [facility] 1980 [id number] Exam Date/Time: 06/05/2024 12:59 Procedure: CT GUIDED ABSCESS FLUID COLLECTION DRAINAGE Ordering Provider: HITCHCOCK YASMIN Reason For Exam: Drainage of abscess around R acetabulum/right hip. Please place drain if able CT GUIDED ABSCESS DRAINAGE: CLINICAL INDICATION: Right gluteal soft tissue fluid collection/abscess. Drainage tube placement is requested. ANESTHESIA: Moderate conscious sedation was provided with 0.5 mg Versed and 50 mcg Fentanyl. An independent trained observer monitored the patient during the procedure. The intra service time 30 was minutes. Cardiorespiratory monitoring was provided and the patient left department in stable condition. TECHNIQUE: 3 mm axial sections were obtained through the pelvic fluid collection. Dose reduction was employed with automated exposure control. PROCEDURE: Following discussion with the patient regarding risks, benefits and alternatives, the skin was sterilely prepared and local anesthesia was applied. Patient was placed in the LPO position on the CT table. Axial CT images of the pelvis were performed for the purpose of localization of the fluid collection. CT shows a right posterolateral subligamentous lurdes fluid collection measuring 4.9 x 4 cm fluid collection anterior to the right gluteus lurdes muscle. Also, there is smaller fluid collection along the right medial acetabular location. Under CT guidance, a 20 gauge Yueh needle was advanced into the collection in the right posterolateral gluteal fluid collection from an anterolateral approach. Aspiration was performed with a yield of 8ccs of turbid white pus. Subsequently, a 60cm Amplatz guidewire was advanced, and following skin track dilation an 10 [place] multipurpose drainage catheter was advanced into the fluid collection. The locking pigtail catheter was secured in place and left suction gravity drainage. The specimen was sent for microbiology evaluation, including culture and sensitivity. The patient tolerated procedure well. IMPRESSION: Technically successful CT-guided drainage tube placement of right gluteal abscess. Report Dictated on Electronically Signed By: Miranda Dong DO Electronically Signed Date/Time: 06/05/2024 5:18 PM EDT [facility] Interpretation and review of laboratory results Normal [facility] Performed by: [facility], [address] [place] [address] CLIA ID: [id number] [facility] Radiology Study observation (narrative) [facility] Interpretation and review of laboratory results Abnormal [facility] Interpretation and review of laboratory results Abnormal [facility] Performed by: [facility], [address] [place] [address] CLIA ID: [id number] [facility] Interpretation and review of laboratory results Abnormal [facility] Performed by: [facility], [address] [place] [address] CLIA ID: [id number] [facility] Nursing Noteon 06-05-2024 Nursing Note Normal [facility] PROTIME AND APTTon aPTT Coag (Bld) [Time] 27.2 s Normal 20.0-30.5 [facility] Comment on above: Performed By: #### L [id number] ####[place] Installer: KANDY VILLALOBOS ([id number])[facility])[address] [place] [address] INR Coag (PPP) [Relative time] 1.1 {INR} Normal 0.9-1.1 [facility] Comment on above: Result Comment: Catracho mmended Anticoagulant Therapy: SEE BELOW----- INR of 2.0 - 3.0 : - Prophylaxis of Venous Thrombosis (high-risk surgery) - Treatment of Venous Thrombosis - Treatment of Pulmonary Embolism (Includes tissue heart valves, Acute Myocardial Infarction to prevent systemic embolism, Valvular Heart Disease, and Atrial Fibrillation)----- INR of 2.5 - 3.5 : - Mechanical Prosthetic Valves (high risk) - If oral anticoagulant therapy is used to prevent Myocardial Infarction Performed By: #### Kyler [id number] ####[place] Installer: KANDY VILLALOBOS ([id number])[facility] ([facility])[address] [place] [address] PT Coag (PPP) [Time] 12.1 s High 9.0-12.0 [facility] Comment on above: Performed By: #### L [id number] ####Marble Installer: KANDY VILLALOBOS ([id number])[facility] ([facility])[address] [place] [address] Progress Noteon 06-05-2024 Progress Note Normal [facility] Progress Note Patient seen by myself and medicine team during bedside rounds this morning at 8:30 AM. Please refer to my attestation of yesterday's H&P for my notes. Normal [facility] Progress Note Normal [facility] Progress Note Normal [facility] Progress Note Normal [facility] Progress Note Normal [facility] VANCOMYCIN, AUC TIMED DOSING on 06-05-2024 VANCOMYCIN, AUC 23.2 ug/mL Normal [facility] Comment on above: Result Comment: ISSAC Vasquez COMMENTS:Please draw random level at least >2 hours after the end of the last vancomycin infusion, or 30-minutes before next infusion.Toxicity is seen at concentrations >80-100 ug/mLTherapeutic (Peak) range: 20-40Therapeutic (Trough) range: 5-10 Performed By: #### L [id number] ####Marble Installer: KANDY VILLALOBOS ([id number])[facility] [place] [address] Vancomycin trough [Mass/Vol] on 06-05-2024 Toxicity is seen at concentrations >80-100 ug/mL Therapeutic (Peak) range: 20-40 Therapeutic (Trough) range: 5-10 [facility] BLOOD CULTUREon 06-04-2024 Bacteria identified Cx Nom (Bld) Normal [facility] Comment on above: Performed By: #### L [id number] ####[employer] Installer: KANDY VILLALOBOS ([id number])[facility] ([facility])[address] [place] [address] CBC W Auto Differential pane l (Bld)on 06-04-2024 Basophils (Bld) [#/Vol] 0 10*3/uL 0.0 - 0.2 10*3/uL [facility] Basophils/100 WBC (Bld) 0.5 % 0.0 - 2.0 % [facility] Eosinophils (Bld) [#/Vol] 0.1 10*3/uL 0.0 - 0.5 10*3/uL [facility] Eosinophils/100 WBC (Bld) 1.2 % 0.0 - 6.0 % [facility] Erythrocyte distribution width (RBC) [Ratio] 15.1 % High 11.5 - 15.0 % [facility] Hematocrit (Bld) [Volume fraction] 25.9 % Low 40.0 - 52.0 % [facility] Hemoglobin (Bld) [Mass/Vol] 8.2 g/dL Low 13.0 - 18.0 g/dL [facility] Immature granulocytes (Bld) [#/Vol] 0 10*3/uL NINF - 0.1 10*3/uL [facility] Immature granulocytes/100 WBC (Bld) 0.7 % 0.0 - 2.0 % [facility] Interpretation and review of laboratory results Abnormal [facility] Lymphocytes (Bld) [#/Vol] 1.1 10*3/uL 1.0 - 4.3 10*3/uL [facility] Lymphocytes/100 WBC (Bld) 26.1 % 15.0 - 45.0 % [facility] MCH (RBC) [Entitic mass] 26.2 pg 26. 0 - 34.0 pg [facility] MCHC (RBC) [Mass/Vol] 31.7 % 30.5 - 36.0 % [facility] MCV (RBC) [Entitic vol] 82.7 fL 77.0 - 99.0 fL [facility] Monocytes (Bld) [#/Vol] 0.3 10*3/uL 0.0 - 0.9 10*3/uL [facility] Monocytes/100 WBC (Bld) 7.6 % 5.0 - 13.0 % [facility] Neutrophils (Bld) [#/Vol] 2.7 10*3/uL 1.8 - 7.5 10*3/uL [facility] Neutrophils/100 WBC (Bld) 63.9 % 38.0 - 82.0 % [facility] Nucleated RBC/100 WBC (Bld) [Ratio] 0 % [facility] Platelet mean volume (Bld) [Entitic vol] 9.4 fL 9.0 - 12.7 fL [facility] Platelets (Bld) [#/Vol] 196 10*3/uL 140 - 440 10*3/uL [facility] RBC (Bld) [#/Vol] 3.13 10*6/uL Low 4.40 - 5.9 0 10*6/uL [facility] WBC (Bld) [#/Vol] 4.2 10*3/uL 3.6 - 10.7 10*3/uL [facility] CBC WITH AUTO DIFFERENTIALon 06-04-2024 Basophils (Bld) [#/Vol] 0.0 10*3/uL Normal 0.0-0.2 [facility] Comment on above: Performed By: #### L [id number] ####[place] Installer: KANDY VILLALOBOS ([id number])[facility] ([address] Basophils/100 WBC (Bld) 0.5 % Normal 0.0-2.0 [facility] Comment on above: Performed By: #### L [id number] ####[place] Installer: KANDY VILLALOBOS ([id number])[facility])[address] [place] [address] Eosinophils (Bld) [#/Vol] 0.1 10*3/uL Normal 0.0-0.5 [facility] Comment on above: Performed By: #### L [id number] ####[employer] Installer: KANDY VILLALOBOS ([id number])[facility])[address] [place] [address] Eosinophils/100 WBC (Bld) 1.2 % Normal 0.0-6.0 [facility] Comment on above: Performed By: #### L [id number] ####[place] Installer: KANDY VILLALOBOS ([id number])[address] Erythrocyte distribution width (RBC) [Ratio] 15.1 % High 11.5-15.0 [facility] Comment on above: Performed By: #### L [id number] ####[employer] Installer: KANDY VILLALOBOS ([id number])[address] Hematocrit (Bld) [Volume fraction] 25.9 % Low 40.0-52.0 [facility] Comment on above: Performed By: #### L [id number] ####[place] Installer: KANDY VILLALOBOS ([id number])[facility])[address] [place] [address] Hemoglobin (Bld) [Mass/Vol] 8.2 g/dL Low 13.0-18.0 [facility] Comment on above: Performed By: #### L [id number] ####[place] Installer: KANDY VILLALOBOS ([id number])[address] IMMATURE GRANS % 0.7 % Normal 0.0-2.0 [facility] Comment on above: Performed By: #### L [id number] ####[place] Installer: KANDY [id number])[facility])[address] [place] [address] IMMATURE GRANS ABSOLUTE 0.0 10*3/uL Normal <0.1 [facility] Comment on above: Performed By: #### L [id number] ####[employer] Installer: KANDY VILLALOBOS ([id number])[facility])[address] [place] [address] Lymphocytes (Bld) [#/Vol] 1.1 10*3/uL Normal 1.0-4.3 [facility] Comment on above: Performed By: #### L [id number] ####[place] Installer: KANDY VILLALOBOS ([id number])[facility])[address] [place] [address] Lymphocytes/100 WBC (Bld) 26.1 % Normal 15.0-45.0 [facility] Comment on above: Performed By: #### L [id number] ####[place] Installer: KANDY VILLALOBOS ([id number])[facility])[address] [place] [address] MCH (RBC) [Entitic mass] 26.2 pg Normal 26.0-34.0 [facility] Comment on above: Performed By: #### L [id number] ####[place] Installer: KANDY VILLALOBOS ([id number])[facility])[address] [place] [address] MCHC 31.7 % Normal 30.5-36.0 [facility] Comment on above: Performed By: #### L [id number] ####[employer] Installer: KANDY VILLALOBOS ([id number])[facility])[address] [place] [address] MCV (RBC) [Entitic vol] 82.7 fL Normal 77.0-99.0 [facility] Comment on above: Performed By: #### L [id number] ####[place] Installer: KANDY VILLALOBOS ([id number])[facility])[address] [place] [address] Monocytes (Bld) [#/Vol] 0.3 10*3/uL Normal 0.0-0.9 [facility] Comment on above: Performed By: #### L [id number] ####[place] Installer: KANDY VILLALOBOS ([id number])[facility] ([facility])[address] [place] [address] Monocytes/100 WBC (Bld) 7.6 % Normal 5.0-13.0 [facility] Comment on above: Performed By: #### L [id number] ####[place] Installer: KANDY VILLALOBOS ([id number])[facility] ([facility])[address] [place] [address] NEUTROPHILS ABSOLUTE 2.7 10*3/uL Normal 1.8-7.5 [facility] Comment on above: Performed By: #### L [id number] ####[employer] Installer: KANDY VILLALOBOS ([id number])[facility] ([facility])[address] [place] [address] Neutrophils/100 WBC (Bld) 63.9 % Normal 38.0-82.0 [facility] Comment on above: Performed By: #### L [id number] ####[employer] Installer: KANDY VILLALOBOS ([id number])[facility] ([facility])[address] [place] [address] NRBC 0.0 /100 WBCs Normal 0.0-2.0 [facility] Comment on above: Performed By: #### L [id number] ####Mar[employer] Installer: KANDY VILLALOBOS ([id number])[facility] ([facility])[address] [place] [address] Platelet mean volume (Bld) [Entitic vol] 9.4 fL Normal 9.0-12.7 [facility] Comment on above: Performed By: #### L [id number] ####[employer] Installer: KANDY VILLALOBOS ([id number])[facility] ([facility])[address] [place] [address] [place] Platelets (Bld) [#/Vol] 196 10*3/uL Normal 140-440 [facility] Comment on above: Performed By: #### L [id number] ####Marble Installer: KANDY VILLALOBOS ([id number])[facility] ([facility])[address] [place] [address] RBC (Bld) [#/Vol] 3.13 10*6/uL Low 4.40-5.90 [facility] Comment on above: Performed By: #### L [id number] ####[employer] Installer: KANDY VILLALOBOS ([id number])[facility])[address] [place] [address] WBC (Bld) [#/Vol] 4.2 10*3/uL Normal 3.6-10.7 [facility] Comment on above: Performed By: #### L [id number] ####[place] Installer: KANDY VILLALOBOS ([id number])[facility])[address] [place] [address] COMPREHENSIVE METABOLIC PANE Prasad 06-04-2024 Albumin [Mass/Vol] 1.5 g/dL Low 3.5-5.0 [facility] Comment on above: Performed By: #### L [id number], LAB17 ####Mar[place] Installer: KANDY VILLALOBOS ([id number])[facility])[address] [place] [address] ALP [Catalytic activity/Vol] 225 U/L High 40-150 [facility] Comment on above: Performed By: #### L [id number], LAB17 ####[place] Installer: KANDY VILLALOBOS ([id number])[facility])[address] [place] [address] ALT [Catalytic activity/Vol] U/L Normal <40 [facility] Comment on above: Performed By: #### L [id number], LAB17 ####[place] Installer: KANDY VILLALOBOS ([id number])[facility])[address] [place] [address] Anion gap [Moles/Vol] 7 mmol/L Normal 3-13 [facility] Comment on above: Performed By: #### L [id number], LAB17 ####[place] Installer: KANDY VILLALOBOS ([id number])[facility] ([facility])[address] [place] [address] AST [Catalytic activity/Vol] 12 U/L Normal <34 [facility] Comment on above: Performed By: #### L [id number], LAB17 ####[place] Installer: KANDY VILLALOBOS ([id number])[facility] ([facility])[address] Bilirubin [Mass/Vol] 0.2 mg/dL Normal <1.2 [facility] Comment on above: Performed By: #### L [id number], LAB17 ####[place] Installer: KANDY VILLALOBOS ([id number])[facility] ([facility])[address] [place] [address] Calcium [Mass/Vol] 7.6 mg/dL Low 8.4-10.2 [facility] Comment on above: Performed By: #### L [id number], LAB17 ####Marble Installer: KANDY VILLALOBOS ([id number])[facility] ([facility])[address] [place] [address] [place] Chloride [Moles/Vol] 103 mmol/L Normal 98-107 [facility] Comment on above: Performed By: #### L [id number], LAB17 ####[place] Installer: KANDY VILLALOBOS ([id number])[facility] ([facility] [place] [address] [place] CO2 [Moles/Vol] 25 mmol/L Normal 22-29 [facility] Comment on above: Performed By: #### L [id number], LAB17 ####[place] Installer: KANDY VILLALOBOS ([id number])[facility] ([facility] [place] [address] [place] Creatinine [Mass/Vol] 0.52 mg/dL Low 0.72-1.25 [facility] Comment on above: Performed By: #### L [id number], LAB17 ####[place] Installer: KANDY VILLALOBOS ([id number])[facility] ([facility] [place] [address] [place] GLOMERULAR FILTRATION RATE ML/MIN/1.73 SQ M.PREDICTED >90.0 Normal >60.0 [facility] Comment on above: Result Comment: Calc ulation based on the Chronic Kidney Disease Epidemiology Collaboration (CKD-EPI) equation refit without adjustment for race Performed By: #### L [id number], LAB17 ####[place] Installer: KANDY VILLALOBOS ([id number])[address] Glucose [Mass/Vol] 134 mg/dL High 74-100 [facility] Comment on above: Performed By: #### L [id number], LAB17 ####[place] Installer: KANDY VILLALOBOS ([id number])[address] Potassium [Moles/Vol] 4.1 mmol/L Normal 3.5-5.1 [facility] Comment on above: Result Comment: [facility] potassium values may be up to 0.5 mmol/L lower than serum values. Performed By: #### L [id number], LAB17 ####Marble Installer: KANDY VILLALOBOS ([id number])[address] Protein [Mass/Vol] 5.8 g/dL Low 6.4-8.3 [facility] Comment on above: Performed By: #### L [id number], LAB17 ####Marble Installer: KANDY VILLALOBOS ([id number])[address] Sodium [Moles/Vol] 135 mmol/L Low 136-145 [facility] Comment on above: Performed By: #### L [id number], LAB17 ####[place] Installer: KANDY VILLALOBOS ([id number])[address] Urea nitrogen [Mass/Vol] 9 mg/dL Normal 8-21 [facility] Comment on above: Performed By: #### L [id number], LAB17 ####Marble Installer: KANDY [id number])[facility] ([facility])[address] [place] [address] CT ABDOMEN PELVIS W CONTRAST on 06-04-2024 CT ABDOMEN PELVIS W CONTRAST Normal [facility] CT Abdomen and Pelvis W cont rast Batsheva 06-04-2024 1. There are multiple intramuscular fluid collections (suspect abscess) involving the musculature of the posterior and medial right hip which extends along the medial pelvic sidewall and right sacrum. Multiple enlarged likely reactive lymph nodes posterior to the right psoas muscle and along the right iliac chain. 2. Diffuse edema within the subcutaneous fatty tissue. 3. Large right buttocks ulcer. 4. Multiloculated fluid collection of the prostate gland concerning for small abscesses. 5. There are a few small locules of air within the tissue along the inferior scrotum, incompletely characterized, a gas-forming organism cannot be excluded. This patient has a history of Jhoan's gangrene. 6. Bladder wall thickening, concerning for cystitis. 7. Colonic diverticulosis. 8. Splenomegaly. 9. Interval diverting left loop colostomy (05/23/2024). 9. Additional findings, as above. Report Dictated on Electronically Signed By: Dorys Milton MD Electronically Signed Date/Time: 06/04/2024 7:14 PM [facility] Patient Name: MIRANDA RO : 1980 Exam Date/Time: 06/04/2024 18:43 Procedure: CT ABDOMEN PELVIS W CONTRAST Ordering Provider: HITCHCOCK YASMIN Reason For Exam: worsening groin abscess Gender: Male Age: 44 years History: worsening groin abscess Exam: CT ABDOMEN PELVIS W CONTRAST Indication: Pain. Wound infection. Staph infection. Scan Parameters: Multiple axial CT images were obtained of the abdomen and pelvis. Coronal and sagittal reconstructions were reviewed as well. ALARA protocol. Dose reduction was employed with automated exposure control. Contrast: 75 mL Isovue-370 IV contrast; no GI contrast Comparison: 05/21/2024 CT abdomen and pelvis FINDINGS: Soft tissue and muscles: Edema is present in the fatty tissue along the anterior left lower thorax and bilateral abdomen and pelvis. There is a multiloculated fluid collection within the muscle which surrounds the right hip and acetabulum. This extends along the right pelvic wall. Within the posterior muscle group this measures approximately 7.1 x 3.2 cm. Within the medial muscle group along the pelvic sidewall this measures 5.9 x 2.8 cm. This continues to extend within the posterior muscle group along the right femur caudally. This also extends within the musculature along the presacral space on the right. There are multiple enlarged abnormal lymph nodes along the right iliac chain and posterior to the right psoas muscle. There is a skin defect of the right buttocks with thickening of the skin. There is diffuse fatty atrophy of the gluteus muscles. Lung bases: Bibasilar atelectasis present. Osseous structures: There is curvature of the lumbar spine. The patient appears rotated. Liver: The hepatic contour is unremarkable. Gallbladder/Biliary tree: No biliary dilatation. The gallbladder is within normal limits. Spleen: The spleen remains enlarged. Adrenals: Normal. Pancreas: Normal. Kidneys: The kidneys symmetrically enhance and are lobular in contour without hydronephrosis. A right renal simple cyst requires no follow-up. Bladder: The bladder is decompressed with a Donohue catheter present and there is circumferential wall thickening of the bladder measuring 1.7 cm in thickness. Residual IV contrast is present in the bladder lumen. A few locules of air are present. Findings are concerning for cystitis. Prostate: There are multiple regions of low attenuation associated with the prostate gland, for instance measuring 2.8 cm in greatest transverse axial dimension. Peritoneal Cavity/Retroperitone um: Multiple abnormal lymph nodes right iliac chain, posterior to right psoas muscle. GI Tract: The appendix is not identified. Multiple colonic diverticuli are present. There is a left loop ostomy (sigmoid and descending colon). A small sliding-type hiatal hernia is present. There are multiple decompressed and fluid-filled loops of small bowel. Vasculature: Atherosclerotic calcifications are present along the aorta and branches. Other: There are a few locules of air within the tissue of the inferior scrotum. [facility] Dorys Milton MD - 06/04/2024 Patient Name: MIRANDA RO : 1980 Exam Date/Time: 06/04/2024 18:43 Procedure: CT ABDOMEN PELVIS W CONTRAST Ordering Provider: HITCHCOCK YASMIN Reason For Exam: worsening groin abscess Gender: Male Age: 44 years History: worsening groin abscess Exam: CT ABDOMEN PELVIS W CONTRAST Indication: Pain. Wound infection. Staph infection. Scan Parameters: Multiple axial CT images were obtained of the abdomen and pelvis. Coronal and sagittal reconstructions were reviewed as well. ALARA protocol. Dose reduction was employed with automated exposure control. Contrast: 75 mL Isovue-370 IV contrast; no GI contrast Comparison: 05/21/2024 CT abdomen and pelvis FINDINGS: Soft tissue and muscles: Edema is present in the fatty tissue along the anterior left lower thorax and bilateral abdomen and pelvis. There is a multiloculated fluid collection within the muscle which surrounds the right hip and acetabulum. This extends along the right pelvic wall. Within the posterior muscle group this measures approximately 7.1 x 3.2 cm. Within the medial muscle group along the pelvic sidewall this measures 5.9 x 2.8 cm. This continues to extend within the posterior muscle group along the right femur caudally. This also extends within the musculature along the presacral space on the right. There are multiple enlarged abnormal lymph nodes along the right iliac chain and posterior to the right psoas muscle. There is a skin defect of the right buttocks with thickening of the skin. There is diffuse fatty atrophy of the gluteus muscles. Lung bases: Bibasilar atelectasis present. Osseous structures: There is curvature of the lumbar spine. The patient appears rotated. Liver: The hepatic contour is unremarkable. Gallbladder/Biliary tree: No biliary dilatation. The gallbladder is within normal limits. Spleen: The spleen remains enlarged. Adrenals: Normal. Pancreas: Normal. Kidneys: The kidneys symmetrically enhance and are lobular in contour without hydronephrosis. A right renal simple cyst requires no follow-up. Bladder: The bladder is decompressed with a Donohue catheter present and there is circumferential wall thickening of the bladder measuring 1.7 cm in thickness. Residual IV contrast is present in the bladder lumen. A few locules of air are present. Findings are concerning for cystitis. Prostate: There are multiple regions of low attenuation associated with the prostate gland, for instance measuring 2.8 cm in greatest transverse axial dimension. Peritoneal Cavity/Retroperitone um: Multiple abnormal lymph nodes right iliac chain, posterior to right psoas muscle. GI Tract: The appendix is not identified. Multiple colonic diverticuli are present. There is a left loop ostomy (sigmoid and descending colon). A small sliding-type hiatal hernia is present. There are multiple decompressed and fluid-filled loops of small bowel. Vasculature: Atherosclerotic calcifications are present along the aorta and branches. Other: There are a few locules of air within the tissue of the inferior scrotum. IMPRESSION: 1. There are multiple intramuscular fluid collections (suspect abscess) involving the musculature of the posterior and medial right hip which extends along the medial pelvic sidewall and right sacrum. Multiple enlarged likely reactive lymph nodes posterior to the right psoas muscle and along the right iliac chain. 2. Diffuse edema within the subcutaneous fatty tissue. 3. Large right buttocks ulcer. 4. Multiloculated fluid collection of the prostate gland concerning for small abscesses. 5. There are a few small locules of air within the tissue along the inferior scrotum, incompletely characterized, a gas-forming organism cannot be excluded. This patient has a history of Jhoan's gangrene. 6. Bladder wall thickening, concerning for cystitis. 7. Colonic diverticulosis. 8. Splenomegaly. 9. Interval diverting left loop colostomy (05/23/2024). 9. Additional findings, as above. Report Dictated on Electronically Signed By: Dorys Milton MD Electronically Signed Date/Time: 06/04/2024 7:14 PM EDT [facility] Radiology Study observation (narrative) [facility] CT Abdomen and Pelvis W cont rast IVOrdered By: Dorys Milton on 06-04-2024 [facility] [employer] Work Phone: Comprehensive metabolic 1998 panelon 06-04-2024 Albumin [Mass/Vol] 1.5 g/dL Low 3.5 - 5.0 g/dL [facility] ALP [Catalytic activity/Vol] 225 U/L High 40 - 150 U/L [facility] ALT [Catalytic activity/Vol] U/L NINF - 40 U/L [facility] Anion gap [Moles/Vol] 7 mmol/L 3 - 13 mmol/L [facility] AST [Catalytic activity/Vol] 12 U/L NINF - 34 U/L [facility] Bilirubin [Mass/Vol] 0.2 mg/dL NINF - 1.2 mg/dL [facility] Calcium [Mass/Vol] 7.6 mg/dL Low 8.4 - 10. 2 mg/dL [facility] Chloride [Moles/Vol] 103 mmol/L 98 - 10 7 mmol/L [facility] CO2 [Moles/Vol] 25 mmol/L 22 - 29 mmol/L [facility] Creatinine [Mass/Vol] 0.52 mg/dL Low 0.72 - 1.25 mg/dL [facility] GFR/1.73 sq M.predicted (S/P/Bld) [Vol rate/Area] - PINF [facility] Comment on above: Calculation based on the Chronic Kidney Disease Epidemiology Collaboration (CKD-EPI) equation refit without adjustment for race Glucose [Mass/Vol] 134 mg/dL High 74 - 100 mg/dL [facility] Interpretation and review of laboratory results Abnormal [facility] Potassium [Moles/Vol] 4.1 mmol/L 3.5 - 5.1 mmol/L [facility] Comment on above: Plasma potassium duy ues may be up to 0.5 mmol/L lower than serum values. Protein [Mass/Vol] 5.8 g/dL Low 6.4 - 8.3 g/dL [facility] Sodium [Moles/Vol] 135 mmol/L Low 136 - 145 mmol/L [facility] Urea nitrogen [Mass/Vol] 9 mg/dL 8 - 21 mg/d L [facility] Consulton 06-04-2024 Consult Normal [facility] ED Nursing Noteon 06-04-2024 ED Nursing Note Pt being transported to floor, no signs of distress, alert, equal chest rise. Antibiotics running. Normal [facility] ED Provider Noteon ED Provider Note Normal [facility] HEMOGLOBIN A1Con 06-04-2024 Glucose [Mass/Vol] 229 mg/dL Normal [facility] Comment on above: Result Comment: ISSAC R COMMENTS:If not done within the last 3 [id number] values of 5.7-6.4 percent indicate an increased risk for developing diabetes mellitus. HbA1c values greater than or equal to 6.5 percent are diagnostic of diabetes mellitus. For diagnosis of diabetes in individuals without unequivocal hyperglycemia, results should be confirmed by repeat testing. Performed By: #### L [id number] ####[place] Installer: KANDY VILLALOBOS ([id number])[facility])[address] [place] [address] HEMOGLOBIN A1C 9.6 %HbA1C High <5.7 [facility] Comment on above: Result Comment: Norm al less than 5.7%Prediabetes 5.7% to 6.4%Diabetes 6.5% or higher--HgbA1C levels may not be accurate in patients who have renal disease, received recent blood transfusions, are anemic, or who have dyshemoglobinemia. Performed By: #### L [id number] ####[employer] Installer: KANDY VILLALOBOS ([id number])[facility])[address] [place] [address] LACTIC ACID WITH REFLEXon Lactate [Moles/Vol] 0.9 mmol/L Normal 0.5-2.2 [facility] Comment on above: Performed By: #### L [id number] ####[place] Installer: KANDY VILLALOBOS ([id number])[facility] ([facility])[address] [place] [address] Laboratory - Chemistry and C hemistry - challengeon 06-04-2024 Average glucose Estimated from glycated hemoglobin (Bld) [Mass/Vol] 229 mg/dL [facility] Procalcitonin [Mass/Vol] 0.11 ng/mL High KETAN F - 0.07 ng/mL [facility] Lactate [Moles/Vol] 0.9 mmol/L 0.5 - 2. 2 mmol/L [facility] Laboratory - Hematology and Cell countson 06-04-2024 HbA1c (Bld) [Mass fraction] 9.6 % High [facility] Comment on above: Normal less than 5.7 % Prediabetes 5.7% to 6.4% Diabetes 6.5% or higher --HgbA1C levels may not be accurate in patients who have renal disease, received recent blood transfusions, are anemic, or who have dyshemoglobinemia. No Panel Informationon 06-04 Interpretation and review of laboratory results Abnormal [facility] HbA1c values of 5.7-6.4 percent indicate an increased risk for developing diabetes mellitus. HbA1c values greater than or equal to 6.5 percent are diagnostic of diabetes mellitus. For diagnosis of diabetes in individuals without unequivocal hyperglycemia, results should be confirmed by repeat testing. [facility] Interpretation and review of laboratory results Normal [facility] PROCALCITONIN TESTon 025 PROCALCITONIN 0.11 ng/mL High <0.07 [facility] Comment on above: Result Comment: ISSAC Vasquez COMMENTS:PCT <0.50 = Low risk of severe sepsis and/or septic shock.PCT >2.00 = High risk of severe sepsis and/or septic shock. Performed By: #### L [id number], [id number] ####Marble Installer: KANDY VILLALOBOS ([id number])[address] Procalcitonin [Mass/Vol]on 0 06-04-2024 Interpretation and review of laboratory results Abnormal [facility] PCT <0.50 = Low risk of severe sepsis and/or septic shock. PCT >2.00 = High risk of severe sepsis and/or septic shock. [facility] Progress Noteon 06-04-2024 Progress Note Normal [facility] [id number] 06-03-2024 [id number] Normal [facility] 36on 06-02-2024 36 Normal [facility] [id number] 05-30-2024 [id number] Normal [facility] [id number] Discharge med list transmitted to [facility] [employer] [facility] per TCC request. Normal [facility] [id number] Normal [facility] CBC W Auto Differential pane l (Bld)on 05-30-2024 Basophils (Bld) [#/Vol] 0 10*3/uL 0.0 - 0.2 10*3/uL [facility] Basophils/100 WBC (Bld) 0.2 % 0.0 - 2.0 % [facility] Eosinophils (Bld) [#/Vol] 0 10*3/uL 0.0 - 0.5 10*3/uL [facility] Eosinophils/100 WBC (Bld) 0.5 % 0.0 - 6.0 % [facility] Erythrocyte distribution width (RBC) [Ratio] 14.8 % 11.5 - 15.0 % [facility] Hematocrit (Bld) [Volume fraction] 23.1 % Low 40.0 - 52.0 % [facility] Hemoglobin (Bld) [Mass/Vol] 7.4 g/dL Low 13.0 - 18.0 g/dL [facility] Immature granulocytes (Bld) [#/Vol] 0 10*3/uL NINF - 0.1 10*3/uL [facility] Immature granulocytes/100 WBC (Bld) 0.5 % 0.0 - 2.0 % [facility] Interpretation and review of laboratory results Abnormal [facility] Lymphocytes (Bld) [#/Vol] 1.4 10*3/uL 1.0 - 4.3 10*3/uL [facility] Lymphocytes/100 WBC (Bld) 24.8 % 15.0 - 45.0 % [facility] MCH (RBC) [Entitic mass] 25.7 pg Low 26. 0 - 34.0 pg [facility] MCHC (RBC) [Mass/Vol] 32 % 30.5 - 36.0 % [facility] MCV (RBC) [Entitic vol] 80.2 fL 77.0 - 99.0 fL [facility] Monocytes (Bld) [#/Vol] 0.4 10*3/uL 0.0 - 0.9 10*3/uL [facility] Monocytes/100 WBC (Bld) 6.6 % 5.0 - 13.0 % [facility] Neutrophils (Bld) [#/Vol] 3.9 10*3/uL 1.8 - 7.5 10*3/uL [facility] Neutrophils/100 WBC (Bld) 67.4 % 38.0 - 82.0 % [facility] Nucleated RBC/100 WBC (Bld) [Ratio] 0 % [facility] Platelet mean volume (Bld) [Entitic vol] 9.6 fL 9.0 - 12.7 fL [facility] Platelets (Bld) [#/Vol] 174 10*3/uL 140 - 440 10*3/uL [facility] RBC (Bld) [#/Vol] 2.88 10*6/uL Low 4.40 - 5.9 0 10*6/uL [facility] WBC (Bld) [#/Vol] 5.7 10*3/uL 3.6 - 10.7 10*3/uL [facility] CBC WITH AUTO DIFFERENTIALon 05-30-2024 Basophils (Bld) [#/Vol] 0.0 10*3/uL Normal 0.0-0.2 [facility] Comment on above: Performed By: #### L [id number] ####Marble Installer: DEANNE CARSON ([id number])[facility] (SBHLAB)[address] Basophils/100 WBC (Bld) 0.2 % Normal 0.0-2.0 [facility] Comment on above: Performed By: #### L [id number] ####Marble Installer: DEANNE CARSON ([id number])[facility] (SBHLAB)[address] Eosinophils (Bld) [#/Vol] 0.0 10*3/uL Normal 0.0-0.5 [facility] Comment on above: Performed By: #### L [id number] ####Marble Installer: DEANNE CARSON ([id number])[facility] [place] (SBHLAB)[address] [place] [address] Eosinophils/100 WBC (Bld) 0.5 % Normal 0.0-6.0 [facility] Comment on above: Performed By: #### L [id number] ####Marble Installer: DEANNE CARSON ([id number])[facility] [place] (SBHLAB)[address] [place] [address] Erythrocyte distribution width (RBC) [Ratio] 14.8 % Normal 11.5-15.0 [facility] Comment on above: Performed By: #### L [id number] ####Marble Installer: DEANNE CARSON ([id number])[facility] [place] (SBHLAB)[address] [place] [address] Hematocrit (Bld) [Volume fraction] 23.1 % Low 40.0-52.0 [facility] Comment on above: Performed By: #### L [id number] ####Marble Installer: DEANNE CARSON ([id number])[facility] ([facility] [place] [address] Hemoglobin (Bld) [Mass/Vol] 7.4 g/dL Low 13.0-18.0 [facility] Comment on above: Performed By: #### L [id number] ####Marble Installer: DEANNE CARSON ([id number])[facility] ([facility])[address] IMMATURE GRANS % 0.5 % Normal 0.0-2.0 [facility] Comment on above: Performed By: #### L [id number] ####Marble Installer: DEANNE CARSON ([id number])[facility] ([facility])[address] [place] [address] IMMATURE GRANS ABSOLUTE 0.0 10*3/uL Normal <0.1 [facility] Comment on above: Performed By: #### L [id number] ####Marble Installer: DEANNE CARSON ([id number])[facility] ([facility])[address] [place] [address] Lymphocytes (Bld) [#/Vol] 1.4 10*3/uL Normal 1.0-4.3 [facility] Comment on above: Performed By: #### L [id number] ####Marble Installer: DEANNE CARSON ([id number])[facility] ([facility])[address] [place] [address] Lymphocytes/100 WBC (Bld) 24.8 % Normal 15.0-45.0 [facility] Comment on above: Performed By: #### L [id number] ####Marble Installer: DEANNE CARSON ([id number])[facility] ([facility])[address] [place] [address] MCH (RBC) [Entitic mass] 25.7 pg Low 26.0-34.0 [facility] Comment on above: Performed By: #### L [id number] ####Marble Installer: DEANNE CARSON ([id number])[facility] (SBHLAB)[address] [place] [address] MCHC 32.0 % Normal 30.5-36.0 [facility] Comment on above: Performed By: #### L [id number] ####Marble Installer: DEANNE CARSON ([id number])[facility] [place] (SBHLAB)[address] MCV (RBC) [Entitic vol] 80.2 fL Normal 77.0-99.0 [facility] Comment on above: Performed By: #### L [id number] ####Marble Installer: DEANNE PARADADANA ([id number])[facility] BARBJ[facility]NNYN (SBHLAB)[address] [place] [address] Monocytes (Bld) [#/Vol] 0.4 10*3/uL Normal 0.0-0.9 [facility] Comment on above: Performed By: #### L [id number] ####Marble Installer: DEANNE CARSON ([id number])[facility] [place] (SBHLAB)[address] [place] [address] Monocytes/100 WBC (Bld) 6.6 % Normal 5.0-13.0 [facility] Comment on above: Performed By: #### L [id number] ####Marble Installer: DEANNE CARSON ([id number])[facility] [place] (SBHLAB)[address] [place] [address] NEUTROPHILS ABSOLUTE 3.9 10*3/uL Normal 1.8-7.5 [facility] Comment on above: Performed By: #### L [id number] ####Marble Installer: DEANNE CARSON ([id number])[facility] [place] (SBHLAB)[address] [place] [address] Neutrophils/100 WBC (Bld) 67.4 % Normal 38.0-82.0 [facility] Comment on above: Performed By: #### L [id number] ####Marble Installer: DEANNE CARSON ([id number])[facility] [place] (SBHLAB)[address] NRBC 0.0 /100 WBCs Normal 0.0-2.0 [facility] Comment on above: Performed By: #### L [id number] ####Marble Installer: DEANNE PARADADANA ([id number])[facility]ZAPRESBYTERIAN HOSPITALN (SBHLAB)[address] Platelet mean volume (Bld) [Entitic vol] 9.6 fL Normal 9.0-12.7 [facility] Comment on above: Performed By: #### L [id number] ####Marble Installer: DEANNE PARADADANA ([id number])[facility] SYSTEM[facility] LO[facility]ZAVETERANS [facility] (SBHLAB)[address] [place] [address] Platelets (Bld) [#/Vol] 174 10*3/uL Normal 140-440 [facility] Comment on above: Performed By: #### L [id number] ####Marble Installer: DEANNE CARSON ([id number])[facility] SYSTEM[facility] (SBHLAB)[address] RBC (Bld) [#/Vol] 2.88 10*6/uL Low 4.40-5.90 [facility] Comment on above: Performed By: #### L [id number] ####Marble Installer: DEANNE CARSON ([id number])[facility]APRESBYTERIAN HOSPITALN (SBHLAB)[address] WBC (Bld) [#/Vol] 5.7 10*3/uL Normal 3.6-10.7 [facility] Comment on above: Performed By: #### L [id number] ####Marble Installer: DEANNE CARSON ([id number])[facility]ZAPRESBYTERIAN HOSPITALN (SBHLAB)[address] COMPREHENSIVE METABOLIC PANE Prasad 05-30-2024 Albumin [Mass/Vol] 1.3 g/dL Low 3.5-5.0 [facility] Comment on above: Performed By: #### L [id number] ####Marble Installer: DEANNE CARSON ([id number])[facility] (HLAB)[address] ALP [Catalytic activity/Vol] 379 U/L High 40-150 [facility] Comment on above: Performed By: #### L [id number] ####Marble Installer: DEANNE CARSON ([id number])[facility] (HLAB)[address] ALT [Catalytic activity/Vol] U/L Normal <40 [facility] Comment on above: Performed By: #### L [id number] ####Marble Installer: DEANNE CARSON ([id number])[facility] ([facility])[address] Anion gap [Moles/Vol] 5 mmol/L Normal 3-13 [facility] Comment on above: Performed By: #### L [id number] ####Marble Installer: DEANNE CARSON ([id number])[facility] ([facility])[address] AST [Catalytic activity/Vol] 18 U/L Normal <34 [facility] Comment on above: Performed By: #### L [id number] ####Marble Installer: DEANNE CARSON ([id number])[facility] ([facility])[address] Bilirubin [Mass/Vol] 0.3 mg/dL Normal <1.2 [facility] Comment on above: Performed By: #### L [id number] ####Marble Installer: DEANNE CARSON ([id number])[facility] ([facility])[address] Calcium [Mass/Vol] 7.2 mg/dL Low 8.4-10.2 [facility] Comment on above: Performed By: #### L [id number] ####Marble Installer: DEANNE [id number])[facility] [place] (SBHLAB)[address] Chloride [Moles/Vol] 100 mmol/L Normal 98-107 [facility] Comment on above: Performed By: #### L [id number] ####Marble Installer: DEANNE CARSON ([id number])[facility] (SBHLAB)[address] CO2 [Moles/Vol] 28 mmol/L Normal 22-29 [facility] Comment on above: Performed By: #### L [id number] ####Marble Installer: DEANNE CARSON ([id number])[facility] (SBHLAB)[address] Creatinine [Mass/Vol] 0.57 mg/dL Low 0.72-1.25 [facility] Comment on above: Performed By: #### L [id number] ####Marble Installer: DEANNE CARSON ([id number])[facility] (SBHLAB)[address] GLOMERULAR FILTRATION RATE ML/MIN/1.73 SQ M.PREDICTED >90.0 Normal >60.0 [facility] Comment on above: Result Comment: Calc ulation based on the Chronic Kidney Disease Epidemiology Collaboration (CKD-EPI) equation refit without adjustment for race Performed By: #### L [id number] ####Marble Installer: DEANNE CARSON ([id number])[facility] [place] (SBHLAB)[address] Glucose [Mass/Vol] 130 mg/dL High 74-100 [facility] Comment on above: Performed By: #### L [id number] ####Marble Installer: DEANNE CARSON ([id number])[facility] (HLAB)[address] Potassium [Moles/Vol] 4.1 mmol/L Normal 3.5-5.1 [facility] Comment on above: Result Comment: [facility] potassium values may be up to 0.5 mmol/L lower than serum values. Performed By: #### L [id number] ####Marble Installer: DEANNE ALLI ([id number])[facility] [place] (SBHLAB)[address] Protein [Mass/Vol] 5.4 g/dL Low 6.4-8.3 [facility] Comment on above: Performed By: #### L [id number] ####Marble Installer: DEANNE CABALLEROALEXANDR ([id number])[facility] [place] (SBHLAB)[address] Sodium [Moles/Vol] 133 mmol/L Low 136-145 [facility] Comment on above: Performed By: #### L [id number] ####Marble Installer: DEANNE CABALLEROALEXANDR ([id number])[facility] [place] (SBHLAB)[address] Urea nitrogen [Mass/Vol] 18 mg/dL Normal 8-21 [facility] Comment on above: Performed By: #### L [id number] ####Marble Installer: DEANNE ALLI ([id number])[facility]PRESBY[facility]ITALN (SBHLAB)[address] Comprehensive metabolic 1998 panelon 05-30-2024 Albumin [Mass/Vol] 1.3 g/dL Low 3.5 - 5.0 g/dL [facility] ALP [Catalytic activity/Vol] 379 U/L High 40 - 150 U/L [facility] ALT [Catalytic activity/Vol] U/L NINF - 40 U/L [facility] Anion gap [Moles/Vol] 5 mmol/L 3 - 13 mmol/L [facility] AST [Catalytic activity/Vol] 18 U/L NINF - 34 U/L [facility] Bilirubin [Mass/Vol] 0.3 mg/dL NINF - 1.2 mg/dL [facility] Calcium [Mass/Vol] 7.2 mg/dL Low 8.4 - 10. 2 mg/dL [facility] Chloride [Moles/Vol] 100 mmol/L 98 - 10 7 mmol/L [facility] CO2 [Moles/Vol] 28 mmol/L 22 - 29 mmol/L [facility] Creatinine [Mass/Vol] 0.57 mg/dL Low 0.72 - 1.25 mg/dL [facility] GFR/1.73 sq M.predicted (S/P/Bld) [Vol rate/Area] - PINF [facility] Glucose [Mass/Vol] 130 mg/dL High 74 - 100 mg/dL [facility] Interpretation and review of laboratory results Abnormal [facility] Potassium [Moles/Vol] 4.1 mmol/L 3.5 - 5.1 mmol/L [facility] Protein [Mass/Vol] 5.4 g/dL Low 6.4 - 8.3 g/dL [facility] Sodium [Moles/Vol] 133 mmol/L Low 136 - 145 mmol/L [facility] Urea nitrogen [Mass/Vol] 18 mg/dL 8 - 21 mg/d L [facility] Laboratory - Chemistry and C hemistry - challengeon 05-30-2024 Glucose [Mass/Vol] 248 mg/dL High 70 - 100 mg/dL [facility] Glucose [Mass/Vol] 155 mg/dL High 70 - 100 mg/dL [facility] No Panel Informationon 05-30 Interpretation and review of laboratory results Abnormal [facility] Interpretation and review of laboratory results Abnormal [facility] Progress Noteon 05-30-2024 Progress Note Normal [facility] Progress Note Ostomy bar removed successfully. Stoma appears healthy. Ostomy appliance changed by nursing at this time. Steri-strips removed with well-appearing operative sites. Okay for discharge this afternoon, continue daily packing changes. DWAIN Aldrich Normal [facility] Progress Note Normal [facility] Progress Note Normal [facility] [id number] 05-29-2024 [id number] Normal [facility] Bacteria identified Anaer cx Nom (Unsp spec)on 05-29-2024 Interpretation and review of laboratory results Abnormal [facility] CBC W Auto Differential pane l (Bld)on 05-29-2024 Basophils (Bld) [#/Vol] 0 10*3/uL 0.0 - 0.2 10*3/uL [facility] Basophils/100 WBC (Bld) 0.2 % 0.0 - 2.0 % [facility] Eosinophils (Bld) [#/Vol] 0.1 10*3/uL 0.0 - 0.5 10*3/uL [facility] Eosinophils/100 WBC (Bld) 1 % 0.0 - 6.0 % [facility] Erythrocyte distribution width (RBC) [Ratio] 14.3 % 11.5 - 15.0 % [facility] Hematocrit (Bld) [Volume fraction] 23.4 % Low 40.0 - 52.0 % [facility] Hemoglobin (Bld) [Mass/Vol] 7.6 g/dL Low 13.0 - 18.0 g/dL [facility] Immature granulocytes (Bld) [#/Vol] 0 10*3/uL NINF - 0.1 10*3/uL [facility] Immature granulocytes/100 WBC (Bld) 0.6 % 0.0 - 2.0 % [facility] Interpretation and review of laboratory results Abnormal [facility] Lymphocytes (Bld) [#/Vol] 1.3 10*3/uL 1.0 - 4.3 10*3/uL [facility] Lymphocytes/100 WBC (Bld) 25.1 % 15.0 - 45.0 % [facility] MCH (RBC) [Entitic mass] 25.9 pg Low 26. 0 - 34.0 pg [facility] MCHC (RBC) [Mass/Vol] 32.5 % 30.5 - 36.0 % [facility] MCV (RBC) [Entitic vol] 79.6 fL 77.0 - 99.0 fL [facility] Monocytes (Bld) [#/Vol] 0.3 10*3/uL 0.0 - 0.9 10*3/uL [facility] Monocytes/100 WBC (Bld) 6.2 % 5.0 - 13.0 % [facility] Neutrophils (Bld) [#/Vol] 3.4 10*3/uL 1.8 - 7.5 10*3/uL [facility] Neutrophils/100 WBC (Bld) 66.9 % 38.0 - 82.0 % [facility] Nucleated RBC/100 WBC (Bld) [Ratio] 0 % [facility] Platelet mean volume (Bld) [Entitic vol] 9.7 fL 9.0 - 12.7 fL [facility] Platelets (Bld) [#/Vol] 174 10*3/uL 140 - 440 10*3/uL [facility] RBC (Bld) [#/Vol] 2.94 10*6/uL Low 4.40 - 5.9 0 10*6/uL [facility] WBC (Bld) [#/Vol] 5 10*3/uL 3.6 - 10.7 10*3/uL [facility] CBC WITH AUTO DIFFERENTIALon 05-29-2024 Basophils (Bld) [#/Vol] 0.0 10*3/uL Normal 0.0-0.2 [facility] Comment on above: Performed By: #### L [id number] ####Marble Installer: DEANNE CARSON ([id number])[facility] (SBAB)[address] [place] [address] Basophils/100 WBC (Bld) 0.2 % Normal 0.0-2.0 [facility] Comment on above: Performed By: #### L [id number] ####Marble Installer: DEANNE CARSON ([id number])[facility] BARBJ[facility] (SBHLAB)[address] [place] [address] Eosinophils (Bld) [#/Vol] 0.1 10*3/uL Normal 0.0-0.5 [facility] Comment on above: Performed By: #### L [id number] ####Marble Installer: DEANNE CARSON ([phone])[facility] (SBHLAB)[address] [place] [address] Eosinophils/100 WBC (Bld) 1.0 % Normal 0.0-6.0 [facility] Comment on above: Performed By: #### L [id number] ####Marble Installer: DEANNE CARSON ([id number])[facility] (SBHLAB)[address] [place] [address] Erythrocyte distribution width (RBC) [Ratio] 14.3 % Normal 11.5-15.0 [facility] Comment on above: Performed By: #### L [id number] ####Marble Installer: DEANNE CARSON ([id number])[facility] (SBHLAB)[address] Hematocrit (Bld) [Volume fraction] 23.4 % Low 40.0-52.0 [facility] Comment on above: Performed By: #### L [id number] ####Marble Installer: DEANNE CARSON ([id number])[facility] (SBHLAB)[address] Hemoglobin (Bld) [Mass/Vol] 7.6 g/dL Low 13.0-18.0 [facility] Comment on above: Performed By: #### L [id number] ####Marble Installer: DEANNE CARSON ([phone])[facility])[address] IMMATURE GRANS % 0.6 % Normal 0.0-2.0 [facility] Comment on above: Performed By: #### L [id number] ####Marble Installer: DEANNE CARSON ([id number])[facility])[address] IMMATURE GRANS ABSOLUTE 0.0 10*3/uL Normal <0.1 [facility] Comment on above: Performed By: #### L [id number] ####Marble Installer: DEANNE CARSON ([id number])[facility] ([facility])[address] [place] [address] Lymphocytes (Bld) [#/Vol] 1.3 10*3/uL Normal 1.0-4.3 [facility] Comment on above: Performed By: #### L [id number] ####Marble Installer: DEANNE CARSON ([id number])[facility])[address] [place] [address] [place] Lymphocytes/100 WBC (Bld) 25.1 % Normal 15.0-45.0 [facility] Comment on above: Performed By: #### L [id number] ####Marble Installer: DEANNE CARSON ([phone])[facility] ([facility])[address] MCH (RBC) [Entitic mass] 25.9 pg Low 26.0-34.0 [facility] Comment on above: Performed By: #### L [id number] ####Marble Installer: DEANNE PARADADANA ([id number])[facility] [place] (SBHLAB)[address] MCHC 32.5 % Normal 30.5-36.0 [facility] Comment on above: Performed By: #### L [id number] ####Marble Installer: DEANNE CARSON ([id number])[facility] [place] (SBHLAB)[address] MCV (RBC) [Entitic vol] 79.6 fL Normal 77.0-99.0 [facility] Comment on above: Performed By: #### L [id number] ####Marble Installer: DEANNE CARSON ([id number])[facility] [place] (SBHLAB)[address] Monocytes (Bld) [#/Vol] 0.3 10*3/uL Normal 0.0-0.9 [facility] Comment on above: Performed By: #### L [id number] ####Marble Installer: DEANNE CARSON ([id number])SUMMGalo [place] (SBHLAB)[address] [place] [address] Monocytes/100 WBC (Bld) 6.2 % Normal 5.0-13.0 [facility] Comment on above: Performed By: #### L [id number] ####Marble Installer: DEANNE CARSON ([id number])[facility] [place] (SBHLAB)[address] NEUTROPHILS ABSOLUTE 3.4 10*3/uL Normal 1.8-7.5 [facility] Comment on above: Performed By: #### L [id number] ####Marble Installer: DEANNE CARSON ([id number])[facility] [place] (SBHLAB)[address] Neutrophils/100 WBC (Bld) 66.9 % Normal 38.0-82.0 [facility] Comment on above: Performed By: #### L [id number] ####[place] Installer: DEANNE CARSON ([id number])[facility] [place] ([facility])[address] NRBC 0.0 /100 WBCs Normal 0.0-2.0 [facility] Comment on above: Performed By: #### L [id number] ####[place] Installer: DEANNE CARSON ([id number])[facility] [place] ([facility])[address] Platelet mean volume (Bld) [Entitic vol] 9.7 fL Normal 9.0-12.7 [facility] Comment on above: Performed By: #### L [id number] ####[place] Installer: DEANNE CARSON ([id number])[facility] [place] ([facility])[address] [place] [address] [place] Platelets (Bld) [#/Vol] 174 10*3/uL Normal 140-440 [facility] Comment on above: Performed By: #### L [id number] ####[place] Installer: DEANNE CARSON ([id number])[facility] [place] ([facility])[address] [place] [address] [place] RBC (Bld) [#/Vol] 2.94 10*6/uL Low 4.40-5.90 [facility] Comment on above: Performed By: #### L [id number] ####[place] Installer: DEANNE CARSON ([id number])[facility] [place] ([facility])[address] [place] [address] [place] WBC (Bld) [#/Vol] 5.0 10*3/uL Normal 3.6-10.7 [facility] [facility] Comment on above: Performed By: #### L [id number] ####Marble Installer: DEANNE CARSON ([id number])[facility] [place] (SBHLAB)[address] COMPREHENSIVE METABOLIC PANE Prasad 05-29-2024 Albumin [Mass/Vol] 1.2 g/dL Low 3.5-5.0 [facility] Comment on above: Performed By: #### L [id number] ####Marble Installer: DEANNE CARSON ([id number])[facility] [place] ([facility])[address] ALP [Catalytic activity/Vol] 406 U/L High 40-150 [facility] Comment on above: Performed By: #### L [id number] ####Marble Installer: DEANNE CARSON ([phone])[facility] [place] ([facility])[address] ALT [Catalytic activity/Vol] U/L Normal <40 [facility] Comment on above: Performed By: #### L [id number] ####Marble Installer: DEANNE CARSON ([id number])[facility] [place] (SB[facility])[address] Anion gap [Moles/Vol] 6 mmol/L Normal 3-13 [facility] Comment on above: Performed By: #### L [id number] ####Marble Installer: DEANNE CARSON ([id number])[facility] [place] (SB[facility])[address] AST [Catalytic activity/Vol] 15 U/L Normal <34 [facility] Comment on above: Performed By: #### L [id number] ####Marble Installer: DEANNE CARSON ([id number])[facility] [place] (SB[facility])155 [place] [address] [place] Bilirubin [Mass/Vol] 0.3 mg/dL Normal <1.2 [facility] Comment on above: Performed By: #### L [id number] ####Marble Installer: DEANNE CARSON ([phone])[facility] [place] (SB[facility])[address] Calcium [Mass/Vol] 7.1 mg/dL Low 8.4-10.2 [facility] Comment on above: Performed By: #### L [id number] ####Marble Installer: DEANNE CARSON ([id number])[facility] SYSTEM[facility] LOAIZAYARELIS (SBHLAB)[address] Chloride [Moles/Vol] 100 mmol/L Normal 98-107 [facility] Comment on above: Performed By: #### L [id number] ####Marble Installer: DEANNE CARSON ([phone])[facility] (SBHLAB)[address] CO2 [Moles/Vol] 26 mmol/L Normal 22-29 [facility] Comment on above: Performed By: #### L [id number] ####Marble Installer: DEANNE CARSON ([id number])[facility] (SBHLAB)[address] Creatinine [Mass/Vol] 0.60 mg/dL Low 0.72-1.25 [facility] Comment on above: Performed By: #### L [id number] ####Marble Installer: DEANNE CARSON ([phone])[facility] [place] (HLAB)[address] GLOMERULAR FILTRATION RATE ML/MIN/1.73 SQ M.PREDICTED >90.0 Normal >60.0 [facility] Comment on above: Result Comment: Calc ulation based on the Chronic Kidney Disease Epidemiology Collaboration (CKD-EPI) equation refit without adjustment for race Performed By: #### L [id number] ####Marble Installer: DEANNE CARSON ([id number])[facility] LOAIZAJ[facility]NNYN (SBHLAB)155 [place] [address] [place] Glucose [Mass/Vol] 236 mg/dL High 74-100 [facility] Comment on above: Performed By: #### L [id number] ####Marble Installer: DEANNE CARSON ([id number])[facility] (SBHLAB)[address] [place] [address] [place] Potassium [Moles/Vol] 4.1 mmol/L Normal 3.5-5.1 [facility] Comment on above: Result Comment: [facility] potassium values may be up to 0.5 mmol/L lower than serum values. Performed By: #### L [id number] ####Marble Installer: DEANNE CARSON ([id number])[facility] [place] ([facility])[address] Protein [Mass/Vol] 5.2 g/dL Low 6.4-8.3 [facility] Comment on above: Performed By: #### L [id number] ####Marble Installer: DEANNE CARSON ([id number])[facility] [place] ([facility])[address] Sodium [Moles/Vol] 132 mmol/L Low 136-145 [facility] Comment on above: Performed By: #### L [id number] ####Marble Installer: DEANNE CARSON ([id number])[facility] (SBHLAB)[address] Urea nitrogen [Mass/Vol] 20 mg/dL Normal 8-21 [facility] Comment on above: Performed By: #### L [id number] ####Marble Installer: DEANNE CARSON ([id number])[facility] (SBHLAB)[address] [place] [address] Comprehensive metabolic 1998 panelon 05-29-2024 Albumin [Mass/Vol] 1.2 g/dL Low 3.5 - 5.0 g/dL [facility] ALP [Catalytic activity/Vol] 406 U/L High 40 - 150 U/L [facility] ALT [Catalytic activity/Vol] U/L NINF - 40 U/L [facility] Anion gap [Moles/Vol] 6 mmol/L 3 - 13 mmol/L [facility] AST [Catalytic activity/Vol] 15 U/L NINF - 34 U/L [facility] Bilirubin [Mass/Vol] 0.3 mg/dL NINF - 1.2 mg/dL [facility] Calcium [Mass/Vol] 7.1 mg/dL Low 8.4 - 10. 2 mg/dL [facility] Chloride [Moles/Vol] 100 mmol/L 98 - 10 7 mmol/L [facility] CO2 [Moles/Vol] 26 mmol/L 22 - 29 mmol/L [facility] Creatinine [Mass/Vol] 0.6 mg/dL Low 0.72 - 1.25 mg/dL [facility] GFR/1.73 sq M.predicted (S/P/Bld) [Vol rate/Area] - PINF [facility] Glucose [Mass/Vol] 236 mg/dL High 74 - 100 mg/dL [facility] Interpretation and review of laboratory results Abnormal [facility] Potassium [Moles/Vol] 4.1 mmol/L 3.5 - 5.1 mmol/L [facility] Protein [Mass/Vol] 5.2 g/dL Low 6.4 - 8.3 g/dL [facility] Sodium [Moles/Vol] 132 mmol/L Low 136 - 145 mmol/L [facility] Urea nitrogen [Mass/Vol] 20 mg/dL 8 - 21 mg/d L [facility] Laboratory - Chemistry and C hemistry - challengeon 05-29-2024 Glucose [Mass/Vol] 173 mg/dL High 70 - 100 mg/dL [facility] Glucose [Mass/Vol] 322 mg/dL High 70 - 100 mg/dL [facility] Glucose [Mass/Vol] 269 mg/dL High 70 - 100 mg/dL [facility] Glucose [Mass/Vol] 205 mg/dL High 70 - 100 mg/dL [facility] Glucose [Mass/Vol] 268 mg/dL High 70 - 100 mg/dL [facility] Laboratory - Microbiology an d Antimicrobial susceptibilityon 05-29-2024 Bacteria identified Anaer cx Nom (Unsp spec) Few Bacteroides fragilis group Abnormal [facility] No Panel Informationon 05-29 Interpretation and review of laboratory results Abnormal [facility] Interpretation and review of laboratory results Abnormal [facility] Interpretation and review of laboratory results Abnormal [facility] Interpretation and review of laboratory results Abnormal [facility] Interpretation and review of laboratory results Abnormal [facility] Progress Noteon 05-29-2024 Progress [facility] Progress Note Normal [facility] [id number] 05-28-2024 [id number] Normal [facility] System [facility] [id number] Normal [facility] CBC W Auto Differential pane l (Bld)on 05-28-2024 Basophils (Bld) [#/Vol] 0 10*3/uL 0.0 - 0.2 10*3/uL [facility] Basophils/100 WBC (Bld) 0.2 % 0.0 - 2.0 % [facility] Eosinophils (Bld) [#/Vol] 0.1 10*3/uL 0.0 - 0.5 10*3/uL [facility] Eosinophils/100 WBC (Bld) 1.1 % 0.0 - 6.0 % [facility] Erythrocyte distribution width (RBC) [Ratio] 14.1 % 11.5 - 15.0 % [facility] Hematocrit (Bld) [Volume fraction] 23.1 % Low 40.0 - 52.0 % [facility] Hemoglobin (Bld) [Mass/Vol] 7.4 g/dL Low 13.0 - 18.0 g/dL [facility] Immature granulocytes (Bld) [#/Vol] 0.1 10*3/uL High NINF - 0.1 10*3/uL [facility] Immature granulocytes/100 WBC (Bld) 1.1 % 0.0 - 2.0 % [facility] Interpretation and review of laboratory results Abnormal [facility] Lymphocytes (Bld) [#/Vol] 1.4 10*3/uL 1.0 - 4.3 10*3/uL [facility] Lymphocytes/100 WBC (Bld) 25.9 % 15.0 - 45.0 % [facility] MCH (RBC) [Entitic mass] 25.8 pg Low 26. 0 - 34.0 pg [facility] MCHC (RBC) [Mass/Vol] 32 % 30.5 - 36.0 % [facility] MCV (RBC) [Entitic vol] 80.5 fL 77.0 - 99.0 fL [facility] Monocytes (Bld) [#/Vol] 0.3 10*3/uL 0.0 - 0.9 10*3/uL [facility] Monocytes/100 WBC (Bld) 6 % 5.0 - 13.0 % [facility] Neutrophils (Bld) [#/Vol] 3.5 10*3/uL 1.8 - 7.5 10*3/uL [facility] Neutrophils/100 WBC (Bld) 65.7 % 38.0 - 82.0 % [facility] Nucleated RBC/100 WBC (Bld) [Ratio] 0 % [facility] Platelet mean volume (Bld) [Entitic vol] 9.4 fL 9.0 - 12.7 fL [facility] Platelets (Bld) [#/Vol] 179 10*3/uL 140 - 440 10*3/uL [facility] RBC (Bld) [#/Vol] 2.87 10*6/uL Low 4.40 - 5.9 0 10*6/uL [facility] WBC (Bld) [#/Vol] 5.3 10*3/uL 3.6 - 10.7 10*3/uL [facility] CBC WITH AUTO DIFFERENTIALon 05-28-2024 Basophils (Bld) [#/Vol] 0.0 10*3/uL Normal 0.0-0.2 [facility] Comment on above: Performed By: #### L [id number] ####Marble Installer: DEANNE CARSON ([id number])[facility] [place] (SB[facility])[address] Basophils/100 WBC (Bld) 0.2 % Normal 0.0-2.0 S [facility] Comment on above: Performed By: #### L [id number] ####Marble Installer: DEANNE CARSON ([id number])[facility] [place] (SB[facility])[address] Eosinophils (Bld) [#/Vol] 0.1 10*3/uL Normal 0.0-0.5 [facility] Comment on above: Performed By: #### L [id number] ####Marble Installer: DEANNE CARSON ([id number])[facility] [place] ([facility])[address] Eosinophils/100 WBC (Bld) 1.1 % Normal 0.0-6.0 [facility] Comment on above: Performed By: #### L [id number] ####Marble Installer: DEANNE [id number])[facility] [place] (SBHLAB)[address] Erythrocyte distribution width (RBC) [Ratio] 14.1 % Normal 11.5-15.0 [facility] Comment on above: Performed By: #### L [id number] ####Marble Installer: DEANNE CARSON ([id number])[facility] (SBHLAB)[address] Hematocrit (Bld) [Volume fraction] 23.1 % Low 40.0-52.0 [facility] Comment on above: Performed By: #### L [id number] ####Marble Installer: DEANNE CARSON ([id number])[facility] (SBHLAB)[address] [place] [address] Hemoglobin (Bld) [Mass/Vol] 7.4 g/dL Low 13.0-18.0 [facility] Comment on above: Performed By: #### L [id number] ####Marble Installer: DEANNE CARSON ([id number])[facility] (SBHLAB)[address] IMMATURE GRANS % 1.1 % Normal 0.0-2.0 [facility] Comment on above: Performed By: #### L [id number] ####Marble Installer: DEANNE CARSON ([id number])[facility] (SBHLAB)[address] IMMATURE GRANS ABSOLUTE 0.1 10*3/uL High <0.1 [facility] Comment on above: Performed By: #### L [id number] ####Marble Installer: DEANNE CARSON ([id number])[facility] [place] (SB[facility])155 [place] [address] [place] Lymphocytes (Bld) [#/Vol] 1.4 10*3/uL Normal 1.0-4.3 [facility] Comment on above: Performed By: #### L [id number] ####Marble Installer: DEANNE CARSON ([id number])[facility] [place] (SB[facility])[address] Lymphocytes/100 WBC (Bld) 25.9 % Normal 15.0-45.0 [facility] Comment on above: Performed By: #### L [id number] ####Marble Installer: DEANNE CARSON ([id number])[facility] (SBHLAB)[address] MCH (RBC) [Entitic mass] 25.8 pg Low 26.0-34.0 [facility] Comment on above: Performed By: #### L [id number] ####Marble Installer: DEANNE CARSON ([id number])[facility] (SBHLAB)[address] [place] [address] MCHC 32.0 % Normal 30.5-36.0 [facility] Comment on above: Performed By: #### L [id number] ####Marble Installer: DEANNE CARSON ([id number])[facility] SYSTEM[facility] (SBHLAB)[address] [place] [address] MCV (RBC) [Entitic vol] 80.5 fL Normal 77.0-99.0 [facility] Comment on above: Performed By: #### L [id number] ####Marble Installer: DEANNE CARSON ([id number])[facility] (SBHLAB)[address] [place] [address] Monocytes (Bld) [#/Vol] 0.3 10*3/uL Normal 0.0-0.9 [facility] Comment on above: Performed By: #### L [id number] ####Marble Installer: DEANNE CARSON ([id number])[facility] (SBHLAB)[address] [place] [address] Monocytes/100 WBC (Bld) 6.0 % Normal 5.0-13.0 [facility] Comment on above: Performed By: #### L [id number] ####Marble Installer: DEANNE CARSON ([id number])[facility] [place] (SBHLAB)[address] NEUTROPHILS ABSOLUTE 3.5 10*3/uL Normal 1.8-7.5 [facility] Comment on above: Performed By: #### L [id number] ####Marble Installer: DEANNE CARSON ([id number])[facility] [place] ([facility])[address] Neutrophils/100 WBC (Bld) 65.7 % Normal 38.0-82.0 [facility] Comment on above: Performed By: #### L [id number] ####Marble Installer: DEANNE CARSON ([id number])[facility] [place] ([facility])[address] NRBC 0.0 /100 WBCs Normal 0.0-2.0 [facility] Comment on above: Performed By: #### L [id number] ####Marble Installer: DEANNE CARSON ([id number])[facility] [place] ([facility])[address] Platelet mean volume (Bld) [Entitic vol] 9.4 fL Normal 9.0-12.7 [facility] Comment on above: Performed By: #### L [id number] ####Marble Installer: DEANNE CARSON ([id number])[facility] [place] (SB[facility])155 [place] [address] [place] Platelets (Bld) [#/Vol] 179 10*3/uL Normal 140-440 [facility] Comment on above: Performed By: #### L [id number] ####Marble Installer: DEANNE CARSON ([id number])[facility] [place] (SB[facility])155 [place] [address] [place] RBC (Bld) [#/Vol] 2.87 10*6/uL Low 4.40-5.90 [facility] Comment on above: Performed By: #### L [id number] ####Marble Installer: DEANNE CARSON ([id number])[facility] [place] (SBHLAB)[address] WBC (Bld) [#/Vol] 5.3 10*3/uL Normal 3.6-10.7 [facility] Comment on above: Performed By: #### L [id number] ####Marble Installer: DEANNE CARSON ([id number])[facility] [place] ([facility])[address] COMPREHENSIVE METABOLIC PANE Prasad 05-28-2024 Albumin [Mass/Vol] 1.2 g/dL Low 3.5-5.0 [facility] Comment on above: Performed By: #### L [id number] ####Marble Installer: DEANNE CARSON ([id number])[facility] [place] ([facility])[address] ALP [Catalytic activity/Vol] 412 U/L High 40-150 [facility] Comment on above: Performed By: #### L [id number] ####Marble Installer: DEANNE CARSON ([id number])[facility] [place] ([facility])[address] ALT [Catalytic activity/Vol] U/L Normal <40 [facility] Comment on above: Performed By: #### L [id number] ####Marble Installer: DEANNE CARSON ([id number])[facility] [place] ([facility])[address] Anion gap [Moles/Vol] 4 mmol/L Normal 3-13 [facility] Comment on above: Performed By: #### L [id number] ####Marble Installer: DEANNE CARSON ([id number])[facility] [place] ([facility])[address] AST [Catalytic activity/Vol] 19 U/L Normal <34 [facility] Comment on above: Performed By: #### L [id number] ####Marble Installer: DEANNE CARSON ([id number])[facility] [place] ([facility])[address] Bilirubin [Mass/Vol] 0.2 mg/dL Normal <1.2 [facility] Comment on above: Performed By: #### L [id number] ####Marble Installer: DEANNE CARSON ([id number])[facility] [place] ([facility])[address] Calcium [Mass/Vol] 6.9 mg/dL Low 8.4-10.2 [facility] Comment on above: Performed By: #### L [id number] ####Marble Installer: DEANNE CARSON ([id number])[facility] [place] ([facility])[address] Chloride [Moles/Vol] 102 mmol/L Normal 98-107 [facility] Comment on above: Performed By: #### L [id number] ####Marble Installer: DEANNE CARSON ([id number])[facility] [place] ([facility])[address] CO2 [Moles/Vol] 26 mmol/L Normal 22-29 [facility] Comment on above: Performed By: #### L [id number] ####Marble Installer: DEANNE CARSON ([id number])[facility] [place] ([facility])[address] Creatinine [Mass/Vol] 0.60 mg/dL Low 0.72-1.25 [facility] Comment on above: Performed By: #### L [id number] ####Marble Installer: DEANNE CARSON ([id number])[facility] [place] ([facility])[address] GLOMERULAR FILTRATION RATE ML/MIN/1.73 SQ M.PREDICTED >90.0 Normal >60.0 [facility] Comment on above: Result Comment: Calc ulation based on the Chronic Kidney Disease Epidemiology Collaboration (CKD-EPI) equation refit without adjustment for race Performed By: #### L [id number] ####Marble Installer: DEANNE CARSON ([id number])[facility] [place] ([facility])[address] Glucose [Mass/Vol] 192 mg/dL High 74-100 [facility] Comment on above: Performed By: #### L [id number] ####Marble Installer: DEANNE CARSON ([id number])[facility] (SBHLAB)[address] Potassium [Moles/Vol] 3.8 mmol/L Normal 3.5-5.1 [facility] Comment on above: Result Comment: [facility] potassium values may be up to 0.5 mmol/L lower than serum values. Performed By: #### L [id number] ####Marble Installer: DEANNE CARSON ([id number])[facility] Protein [Mass/Vol] 5.1 g/dL Low 6.4-8.3 [facility] Comment on above: Performed By: #### L [id number] ####Marble Installer: DEANNE CARSON ([id number])[facility] (HLAB)[address] Sodium [Moles/Vol] 132 mmol/L Low 136-145 [facility] Comment on above: Performed By: #### L [id number] ####Marble Installer: DEANNE CARSON ([id number])[facility] ([facility])[address] [place] [address] Urea nitrogen [Mass/Vol] 23 mg/dL High 8-21 [facility] Comment on above: Performed By: #### L [id number] ####Marble Installer: DEANNE CARSON ([id number])[facility] (SBHLAB)[address] Comprehensive metabolic 1998 panelon 05-28-2024 Albumin [Mass/Vol] 1.2 g/dL Low 3.5 - 5.0 g/dL [facility] ALP [Catalytic activity/Vol] 412 U/L High 40 - 150 U/L [facility] ALT [Catalytic activity/Vol] U/L NINF - 40 U/L [facility] Anion gap [Moles/Vol] 4 mmol/L 3 - 13 mmol/L [facility] AST [Catalytic activity/Vol] 19 U/L NINF - 34 U/L [facility] Bilirubin [Mass/Vol] 0.2 mg/dL NINF - 1.2 mg/dL [facility] Calcium [Mass/Vol] 6.9 mg/dL Low 8.4 - 10. 2 mg/dL [facility] Chloride [Moles/Vol] 102 mmol/L 98 - 10 7 mmol/L [facility] CO2 [Moles/Vol] 26 mmol/L 22 - 29 mmol/L [facility] Creatinine [Mass/Vol] 0.6 mg/dL Low 0.72 - 1.25 mg/dL [facility] GFR/1.73 sq M.predicted (S/P/Bld) [Vol rate/Area] - PINF [facility] Glucose [Mass/Vol] 192 mg/dL High 74 - 100 mg/dL [facility] Interpretation and review of laboratory results Abnormal [facility] Potassium [Moles/Vol] 3.8 mmol/L 3.5 - 5.1 mmol/L [facility] Protein [Mass/Vol] 5.1 g/dL Low 6.4 - 8.3 g/dL [facility] Sodium [Moles/Vol] 132 mmol/L Low 136 - 145 mmol/L [facility] Urea nitrogen [Mass/Vol] 23 mg/dL High 8 - 21 mg/d L [facility] Consulton 05-28-2024 Consult Vancomycin therapy has been discontinued by Dr. Zhong on 05/28/24. Thank you for the consult. Pharmacy signing off for vancomycin dosing. Serge Hansen, [facility], PharmD Date: 05/28/24 Time: 12:07 PM Normal [facility] Laboratory - Chemistry and C hemistry - challengeon 05-28-2024 Glucose [Mass/Vol] 332 mg/dL High 70 - 100 mg/dL [facility] Glucose [Mass/Vol] 322 mg/dL High 70 - 100 mg/dL [facility] Glucose [Mass/Vol] 316 mg/dL High 70 - 100 mg/dL [facility] Glucose [Mass/Vol] 273 mg/dL High 70 - 100 mg/dL [facility] Glucose [Mass/Vol] 185 mg/dL High 70 - 100 mg/dL [facility] Glucose [Mass/Vol] 186 mg/dL High 70 - 100 mg/dL [facility] Glucose [Mass/Vol] 230 mg/dL High 70 - 100 mg/dL [facility] No Panel Informationon 05-28 Interpretation and review of laboratory results Abnormal [facility] Interpretation and review of laboratory results Abnormal [facility] Interpretation and review of laboratory results Abnormal [facility] Interpretation and review of laboratory results Abnormal [facility] Interpretation and review of laboratory results Abnormal [facility] Interpretation and review of laboratory results Abnormal [facility] Interpretation and review of laboratory results Abnormal [facility] Progress Noteon 05-28-2024 Progress [facility] [id number] 05-27-2024 [id number] Normal [facility] Bacteria identified Aer cx N om (Unsp spec)Ordered By: Iris Robles on 05-27-2024 Gram Stain Result Moderate Polymorphonuclear leukocytes per low power field Abnormal [facility] Gram Stain Result Positive Abnormal [facility]alth Gram Stain Result Negative Abnormal [facility] Interpretation and review of laboratory results Abnormal [facility] Bacteria identified Anaer cx Nom (Unsp spec)on 05-27-2024 Interpretation and review of laboratory results Normal [facility] Interpretation and review of laboratory results Abnormal [facility] Interpretation and review of laboratory results Abnormal [facility] Interpretation and review of laboratory results Abnormal [facility] Bacteria identified Anaer cx Nom (Unsp spec)Ordered By: Melva Santo on 05-27-2024 Interpretation and review of laboratory results Abnormal [facility] CBC W Auto Differential pane l (Bld)on 05-27-2024 Basophils (Bld) [#/Vol] 0 10*3/uL 0.0 - 0.2 10*3/uL [facility] Basophils/100 WBC (Bld) 0.2 % 0.0 - 2.0 % [facility] Eosinophils (Bld) [#/Vol] 0 10*3/uL 0.0 - 0.5 10*3/uL [facility] Eosinophils/100 WBC (Bld) 0.2 % 0.0 - 6.0 % [facility] Erythrocyte distribution width (RBC) [Ratio] 14.2 % 11.5 - 15.0 % [facility] Hematocrit (Bld) [Volume fraction] 23.9 % Low 40.0 - 52.0 % [facility] Hemoglobin (Bld) [Mass/Vol] 7.7 g/dL Low 13.0 - 18.0 g/dL [facility] Immature granulocytes (Bld) [#/Vol] 0.1 10*3/uL High NINF - 0.1 10*3/uL [facility] Immature granulocytes/100 WBC (Bld) 1.8 % 0.0 - 2.0 % [facility] Interpretation and review of laboratory results Abnormal [facility] Lymphocytes (Bld) [#/Vol] 1 10*3/uL 1.0 - 4.3 10*3/uL [facility] Lymphocytes/100 WBC (Bld) 16.5 % 15.0 - 45.0 % [facility] MCH (RBC) [Entitic mass] 25.9 pg Low 26. 0 - 34.0 pg [facility] MCHC (RBC) [Mass/Vol] 32.2 % 30.5 - 36.0 % [facility] MCV (RBC) [Entitic vol] 80.5 fL 77.0 - 99.0 fL [facility] Monocytes (Bld) [#/Vol] 0.3 10*3/uL 0.0 - 0.9 10*3/uL [facility] Monocytes/100 WBC (Bld) 5.2 % 5.0 - 13.0 % [facility] Neutrophils (Bld) [#/Vol] 4.7 10*3/uL 1.8 - 7.5 10*3/uL [facility] Neutrophils/100 WBC (Bld) 76.1 % 38.0 - 82.0 % [facility] Nucleated RBC/100 WBC (Bld) [Ratio] 0 % [facility] Platelet mean volume (Bld) [Entitic vol] 10.2 fL 9.0 - 12.7 fL [facility] Platelets (Bld) [#/Vol] 161 10*3/uL 140 - 440 10*3/uL [facility] RBC (Bld) [#/Vol] 2.97 10*6/uL Low 4.40 - 5.9 0 10*6/uL [facility] WBC (Bld) [#/Vol] 6.2 10*3/uL 3.6 - 10.7 10*3/uL [facility] CBC WITH AUTO DIFFERENTIALon 05-27-2024 Basophils (Bld) [#/Vol] 0.0 10*3/uL Normal 0.0-0.2 [facility] Comment on above: Performed By: #### L [id number] ####Marble Installer: DEANNE CARSON ([id number])[facility] [place] (SBHLAB)[address] Basophils/100 WBC (Bld) 0.2 % Normal 0.0-2.0 [facility] Comment on above: Performed By: #### L [id number] ####Marble Installer: DEANNE CARSON ([id number])[facility] [place] ([facility])[address] Eosinophils (Bld) [#/Vol] 0.0 10*3/uL Normal 0.0-0.5 [facility] Comment on above: Performed By: #### L [id number] ####Marble Installer: DEANNE CARSON ([id number])[facility] [place] (SBHLAB)[address] Eosinophils/100 WBC (Bld) 0.2 % Normal 0.0-6.0 [facility] Comment on above: Performed By: #### L [id number] ####Marble Installer: DEANNE CARSON ([id number])[facility] [place] ([facility])[address] Erythrocyte distribution width (RBC) [Ratio] 14.2 % Normal 11.5-15.0 [facility] Comment on above: Performed By: #### L [id number] ####Marble Installer: DEANNE CARSON ([id number])[facility] [place] (SB[facility])[address] [place] [address] [place] Hematocrit (Bld) [Volume fraction] 23.9 % Low 40.0-52.0 [facility] Comment on above: Performed By: #### L [id number] ####Marble Installer: DEANNE PARADADANA ([id number])[facility] Hemoglobin (Bld) [Mass/Vol] 7.7 g/dL Low 13.0-18.0 [facility] Comment on above: Performed By: #### L [id number] ####Marble Installer: DEANNE ALLI ([id number])[facility] IMMATURE GRANS % 1.8 % Normal 0.0-2.0 [facility] Comment on above: Performed By: #### L [id number] ####Marble Installer: DEANNE CABALLEROALEXANDR ([id number])[facility] ([facility])[address] IMMATURE GRANS ABSOLUTE 0.1 10*3/uL High <0.1 [facility] Comment on above: Performed By: #### L [id number] ####Marble Installer: DEANNE PARADADANA ([id number])[facility] ([facility])[address] [place] [address] Lymphocytes (Bld) [#/Vol] 1.0 10*3/uL Normal 1.0-4.3 [facility] Comment on above: Performed By: #### L [id number] ####Marble Installer: DEANNE CABALLEROALEXANDR ([id number])[facility] [place] [address] [place] Lymphocytes/100 WBC (Bld) 16.5 % Normal 15.0-45.0 [facility] Comment on above: Performed By: #### L [id number] ####Marble Installer: DEANNE PARADADANA ([id number])[facility] MCH (RBC) [Entitic mass] 25.9 pg Low 26.0-34.0 [facility] Comment on above: Performed By: #### L [id number] ####Marble Installer: DEANNE CABALLEROMarcioDANA ([id number])[facility] [place] ([facility])[address] MCHC 32.2 % Normal 30.5-36.0 [facility] Comment on above: Performed By: #### L [id number] ####Marble Installer: DEANNE PARADADANA ([id number])[facility] [place] ([facility])[address] MCV (RBC) [Entitic vol] 80.5 fL Normal 77.0-99.0 [facility] Comment on above: Performed By: #### L [id number] ####Marble Installer: DEANNE CABALLEROALEXANDR ([id number])[facility] [place] ([facility])[address] Monocytes (Bld) [#/Vol] 0.3 10*3/uL Normal 0.0-0.9 [facility] Comment on above: Performed By: #### L [id number] ####Marble Installer: DEANNE PARADADANA ([id number])[facility] [place] ([facility])[address] Monocytes/100 WBC (Bld) 5.2 % Normal 5.0-13.0 [facility] Comment on above: Performed By: #### L [id number] ####Marble Installer: DEANNE PARADADANA ([id number])[facility] [place] ([facility])[address] NEUTROPHILS ABSOLUTE 4.7 10*3/uL Normal 1.8-7.5 [facility] Comment on above: Performed By: #### L [id number] ####Marble Installer: DEANNE PARADADANA ([id number])[facility] [place] ([facility])[address] Neutrophils/100 WBC (Bld) 76.1 % Normal 38.0-82.0 [facility] Comment on above: Performed By: #### L [id number] ####Marble Installer: DEANNE CARSON ([id number])[facility] [place] ([facility])[address] NRBC 0.0 /100 WBCs Normal 0.0-2.0 [facility] Comment on above: Performed By: #### L [id number] ####Marble Installer: DEANNE CARSON ([id number])[facility] [place] ([facility])[address] Platelet mean volume (Bld) [Entitic vol] 10.2 fL Normal 9.0-12.7 [facility] Comment on above: Performed By: #### L [id number] ####Marble Installer: DEANNE CARSON ([id number])[facility] [place] ([facility])[address] Platelets (Bld) [#/Vol] 161 10*3/uL Normal 140-440 [facility] Comment on above: Performed By: #### L [id number] ####Marble Installer: DEANNE CARSON ([id number])[facility] [place] ([facility])[address] RBC (Bld) [#/Vol] 2.97 10*6/uL Low 4.40-5.90 [facility] Comment on above: Performed By: #### L [id number] ####Marble Installer: DEANNE CARSON ([id number])[facility] [place] ([facility])[address] WBC (Bld) [#/Vol] 6.2 10*3/uL Normal 3.6-10.7 [facility] Comment on above: Performed By: #### L [id number] ####Marble Installer: DEANNE CARSON ([id number])[facility] [place] ([facility])[address] COMPREHENSIVE METABOLIC PANE Prasad 05-27-2024 Albumin [Mass/Vol] 1.1 g/dL Low 3.5-5.0 [facility] Comment on above: Performed By: #### L [id number] ####Marble Installer: DEANNE CARSON ([id number])[facility] [place] ([facility])[address] ALP [Catalytic activity/Vol] 197 U/L High 40-150 [facility] Comment on above: Performed By: #### L [id number] ####Marble Installer: DEANNE CARSON ([id number])[facility] [place] ([facility])[address] ALT [Catalytic activity/Vol] U/L Normal <40 [facility] Comment on above: Performed By: #### L [id number] ####Marble Installer: DEANNE CARSON ([id number])[facility] [place] ([facility])[address] Anion gap [Moles/Vol] 5 mmol/L Normal 3-13 [facility] Comment on above: Performed By: #### L [id number] ####Marble Installer: DEANNE CARSON ([id number])[facility] [place] ([facility])[address] AST [Catalytic activity/Vol] 21 U/L Normal <34 [facility] Comment on above: Performed By: #### L [id number] ####Marble Installer: DEANNE CARSON ([id number])[facility] [place] ([facility])[address] Bilirubin [Mass/Vol] 0.3 mg/dL Normal <1.2 [facility] Comment on above: Performed By: #### L [id number] ####Marble Installer: DEANNE CARSON ([id number])[facility] [place] ([facility])[address] Calcium [Mass/Vol] 7.1 mg/dL Low 8.4-10.2 [facility] Comment on above: Performed By: #### L [id number] ####Marble Installer: DEANNE PARADADAAN ([id number])[facility] [place] ([facility])[address] Chloride [Moles/Vol] 103 mmol/L Normal 98-107 [facility] Comment on above: Performed By: #### L [id number] ####Marble Installer: DEANNE CABALLEROALEXANDR ([id number])[facility] ([facility])[address] CO2 [Moles/Vol] 24 mmol/L Normal 22-29 [facility] Comment on above: Performed By: #### L [id number] ####Marble Installer: DEANNE CABALLEROALEXANDR ([id number])[facility] ([facility])[address] Creatinine [Mass/Vol] 0.66 mg/dL Low 0.72-1.25 [facility] Comment on above: Performed By: #### L [id number] ####Marble Installer: DEANNE CARSON ([id number])[facility] (HLAB)[address] GLOMERULAR FILTRATION RATE ML/MIN/1.73 SQ M.PREDICTED >90.0 Normal >60.0 [facility] Comment on above: Result Comment: Calc ulation based on the Chronic Kidney Disease Epidemiology Collaboration (CKD-EPI) equation refit without adjustment for race Performed By: #### L [id number] ####Marble Installer: DEANNE CARSON ([id number])[facility] ([facility])[address] [place] [address] [place] Glucose [Mass/Vol] 212 mg/dL High 74-100 [facility] Comment on above: Performed By: #### L [id number] ####Marble Installer: DEANNE CARSON ([id number])[facility] ([facility])[address] Potassium [Moles/Vol] 4.2 mmol/L Normal 3.5-5.1 [facility] Comment on above: Result Comment: Plas ma potassium values may be up to 0.5 mmol/L lower than serum values. Performed By: #### L [id number] ####Marble Installer: DEANNE CARSON ([id number])[facility] ([facility])[address] Protein [Mass/Vol] 5.3 g/dL Low 6.4-8.3 [facility] Comment on above: Performed By: #### L [id number] ####Marble Installer: DEANNE CARSON ([id number])[facility] [place] ([facility])[address] Sodium [Moles/Vol] 132 mmol/L Low 136-145 [facility] Comment on above: Performed By: #### L [id number] ####Marble Installer: DEANNE CARSON ([id number])[facility] ([facility])[address] Urea nitrogen [Mass/Vol] 21 mg/dL Normal 8-21 [facility] Comment on above: Performed By: #### L [id number] ####Marble Installer: DEANNE CARSON ([id number])[facility] ([facility])[address] Comprehensive metabolic 1998 panelon 05-27-2024 Albumin [Mass/Vol] 1.1 g/dL Low 3.5 - 5.0 g/dL [facility] ALP [Catalytic activity/Vol] 197 U/L High 40 - 150 U/L [facility] ALT [Catalytic activity/Vol] U/L NINF - 40 U/L [facility] Anion gap [Moles/Vol] 5 mmol/L 3 - 13 mmol/L [facility] AST [Catalytic activity/Vol] 21 U/L NINF - 34 U/L [facility] Bilirubin [Mass/Vol] 0.3 mg/dL NINF - 1.2 mg/dL [facility] Calcium [Mass/Vol] 7.1 mg/dL Low 8.4 - 10. 2 mg/dL [facility] Chloride [Moles/Vol] 103 mmol/L 98 - 10 7 mmol/L [facility] CO2 [Moles/Vol] 24 mmol/L 22 - 29 mmol/L [facility] Creatinine [Mass/Vol] 0.66 mg/dL Low 0.72 - 1.25 mg/dL [facility] GFR/1.73 sq M.predicted (S/P/Bld) [Vol rate/Area] - PINF [facility] Glucose [Mass/Vol] 212 mg/dL High 74 - 100 mg/dL [facility] Interpretation and review of laboratory results Abnormal [facility] Potassium [Moles/Vol] 4.2 mmol/L 3.5 - 5.1 mmol/L [facility] Protein [Mass/Vol] 5.3 g/dL Low 6.4 - 8.3 g/dL [facility] Sodium [Moles/Vol] 132 mmol/L Low 136 - 145 mmol/L [facility] Urea nitrogen [Mass/Vol] 21 mg/dL 8 - 21 mg/d L [facility] Consulton 05-27-2024 Consult Normal [facility] Laboratory - Chemistry and C hemistry - challengeon 05-27-2024 Glucose [Mass/Vol] 359 mg/dL High 70 - 100 mg/dL [facility] Glucose [Mass/Vol] 308 mg/dL High 70 - 100 mg/dL [facility] Glucose [Mass/Vol] 242 mg/dL High 70 - 100 mg/dL [facility] Glucose [Mass/Vol] 221 mg/dL High 70 - 100 mg/dL [facility] Glucose [Mass/Vol] 213 mg/dL High 70 - 100 mg/dL [facility] Glucose [Mass/Vol] 265 mg/dL High 70 - 100 mg/dL [facility] Laboratory - Microbiology an d Antimicrobial susceptibilityon 05-27-2024 Bacteria identified Anaer cx Nom (Unsp spec) No growth at 5 days [facility] Bacteria identified Anaer cx Nom (Unsp spec) Rare Bacteroides fragilis group Abnormal [facility] Bacteria identified Anaer cx Nom (Unsp spec) Moderate Bacteroides fragilis group Abnormal [facility] Bacteria identified Anaer cx Nom (Unsp spec) Moderate Bacteroides fragilis group Abnormal [facility] Laboratory - Microbiology an d Antimicrobial susceptibilityOrdered By: Melva Santo on 05-27-2024 Bacteria identified Anaer cx Nom (Unsp spec) Rare Bacteroides fragilis group Abnormal [facility] Laboratory - Microbiology an d Antimicrobial susceptibilityOrdered By: Iris Robles on 05-27-2024 Bacteria identified Aer cx Nom (Unsp spec) Moderate skin donna present [facility] Bacteria identified Aer cx Nom (Unsp spec) Rare Escherichia coli Abnormal [facility] No Panel Informationon 05-27 Interpretation and review of laboratory results Abnormal [facility] Interpretation and review of laboratory results Abnormal [facility] Interpretation and review of laboratory results Abnormal [facility] RADIOLOGY SYSTEM [facility] Radiology Study observation (narrative) [facility] Interpretation and review of laboratory results Abnormal [facility] Interpretation and review of laboratory results Abnormal [facility] Interpretation and review of laboratory results Abnormal [facility] No Panel InformationOrdered By: Estrellita Duran on 05-27-2024 [facility] Work Phone: Nursing Noteon 05-27-2024 Nursing Note Normal [facility] Nursing Note Normal [facility] Progress Noteon 05-27-2024 [facility] Progress [facility] Normal [facility] Progress Note Normal [facility] [id number] 05-26-2024 [id number] Normal [facility] 30on 05-26-2024 30 Normal [facility] [id number] 05-26-2024 [id number] Normal [facility] 36on 05-26-2024 36 Normal [facility] 36 Pt admitted to [facility] for fourniers Had cysto with dilation by Dr Bal on 05/21/24 Currently with [address] Will need void trial after discharge, and 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 Normal [facility] Anesthesia Noteon 05-26-2024 Anesthesia Note Normal [facility] Anesthesia Note Normal [facility] Bacteria identified Cx Nom ( Bld)on 05-26-2024 Interpretation and review of laboratory results Normal [facility] Interpretation and review of laboratory results Normal [facility] CBC W Auto Differential pane l (Bld)on 05-26-2024 Basophils (Bld) [#/Vol] 0 10*3/uL 0.0 - 0.2 10*3/uL [facility] Basophils/100 WBC (Bld) 0.2 % 0.0 - 2.0 % [facility] Eosinophils (Bld) [#/Vol] 0 10*3/uL 0.0 - 0.5 10*3/uL [facility] Eosinophils/100 WBC (Bld) 0.3 % 0.0 - 6.0 % [facility] Erythrocyte distribution width (RBC) [Ratio] 13.9 % 11.5 - 15.0 % [facility] Hematocrit (Bld) [Volume fraction] 22.1 % Low 40.0 - 52.0 % [facility] Hemoglobin (Bld) [Mass/Vol] 7.1 g/dL Low 13.0 - 18.0 g/dL [facility] Immature granulocytes (Bld) [#/Vol] 0.1 10*3/uL High NINF - 0.1 10*3/uL [facility] Immature granulocytes/100 WBC (Bld) 1.7 % 0.0 - 2.0 % [facility] Interpretation and review of laboratory results Abnormal [facility] Lymphocytes (Bld) [#/Vol] 0.9 10*3/uL Low 1.0 - 4.3 10*3/uL [facility] Lymphocytes/100 WBC (Bld) 14.7 % Low 15.0 - 45.0 % [facility] MCH (RBC) [Entitic mass] 25.9 pg Low 26. 0 - 34.0 pg [facility] MCHC (RBC) [Mass/Vol] 32.1 % 30.5 - 36.0 % [facility] MCV (RBC) [Entitic vol] 80.7 fL 77.0 - 99.0 fL [facility] Monocytes (Bld) [#/Vol] 0.3 10*3/uL 0.0 - 0.9 10*3/uL [facility] Monocytes/100 WBC (Bld) 4.1 % Low 5.0 - 13.0 % [facility] Neutrophils (Bld) [#/Vol] 5 10*3/uL 1.8 - 7.5 10*3/uL [facility] Neutrophils/100 WBC (Bld) 79 % 38.0 - 82.0 % [facility] Nucleated RBC/100 WBC (Bld) [Ratio] 0 % [facility] Platelet mean volume (Bld) [Entitic vol] 9.9 fL 9.0 - 12.7 fL [facility] Platelets (Bld) [#/Vol] 136 10*3/uL Low 140 - 440 10*3/uL [facility] RBC (Bld) [#/Vol] 2.74 10*6/uL Low 4.40 - 5.9 0 10*6/uL [facility] WBC (Bld) [#/Vol] 6.3 10*3/uL 3.6 - 10.7 10*3/uL [facility] CBC WITH AUTO DIFFERENTIALon 05-26-2024 Basophils (Bld) [#/Vol] 0.0 10*3/uL Normal 0.0-0.2 [facility] Comment on above: Performed By: #### L [id number] ####Marble Installer: DEANNE CARSON ([id number])[facility] ([facility])[address] [place] [address] Basophils/100 WBC (Bld) 0.2 % Normal 0.0-2.0 [facility] Comment on above: Performed By: #### L [id number] ####Marble Installer: DEANNE CARSON ([id number])[facility] [place] [address] Eosinophils (Bld) [#/Vol] 0.0 10*3/uL Normal 0.0-0.5 [facility] Comment on above: Performed By: #### L [id number] ####Marble Installer: DEANNE CARSON ([id number])[facility] [place] ([facility])[address] [place] [address] Eosinophils/100 WBC (Bld) 0.3 % Normal 0.0-6.0 [facility] Comment on above: Performed By: #### L [id number] ####Marble Installer: DEANNE CARSON ([id number])[facility] ([facility])[address] [place] [address] Erythrocyte distribution width (RBC) [Ratio] 13.9 % Normal 11.5-15.0 [facility] Comment on above: Performed By: #### L [id number] ####Marble Installer: DEANNE CARSON ([id number])[facility] [place] [address] Hematocrit (Bld) [Volume fraction] 22.1 % Low 40.0-52.0 [facility] Comment on above: Performed By: #### L [id number] ####Marble Installer: DEANNE PARADADANA ([id number])[facility] [place] [address] Hemoglobin (Bld) [Mass/Vol] 7.1 g/dL Low 13.0-18.0 [facility] Comment on above: Performed By: #### L [id number] ####Marble Installer: DEANNE PARADADANA ([id number])[facility] ([facility])[address] [place] [address] IMMATURE GRANS % 1.7 % Normal 0.0-2.0 [facility] Comment on above: Performed By: #### L [id number] ####Marble Installer: DEANNE CARSON ([id number])[facility] ([facility])[address] [place] [address] IMMATURE GRANS ABSOLUTE 0.1 10*3/uL High <0.1 [facility] Comment on above: Performed By: #### L [id number] ####Marble Installer: DEANNE CARSON ([id number])[facility] [place] [address] Lymphocytes (Bld) [#/Vol] 0.9 10*3/uL Low 1.0-4.3 [facility] Comment on above: Performed By: #### L [id number] ####Marble Installer: DEANNE PARADADANA ([id number])[facility])[address] [place] [address] Lymphocytes/100 WBC (Bld) 14.7 % Low 15.0-45.0 [facility] Comment on above: Performed By: #### L [id number] ####Marble Installer: DEANNE CABALLEROMarcioDANA ([id number])[facility] [place] ([facility])[address] MCH (RBC) [Entitic mass] 25.9 pg Low 26.0-34.0 [facility] Comment on above: Performed By: #### L [id number] ####Marble Installer: DEANNE ALLI ([id number])[facility] [place] (SB[facility]AB)[address] MCHC 32.1 % Normal 30.5-36.0 [facility] Comment on above: Performed By: #### L [id number] ####Marble Installer: DEANNE ALLI ([id number])[facility] [place] ([facility])[address] [place] [address] MCV (RBC) [Entitic vol] 80.7 fL Normal 77.0-99.0 [facility] Comment on above: Performed By: #### L [id number] ####Marble Installer: DEANNE PARADADANA ([id number])[facility] ([facility])[address] Monocytes (Bld) [#/Vol] 0.3 10*3/uL Normal 0.0-0.9 [facility] Comment on above: Performed By: #### L [id number] ####Marble Installer: DEANNE CARSON ([id number])[facility] ([facility])[address] Monocytes/100 WBC (Bld) 4.1 % Low 5.0-13.0 [facility] Comment on above: Performed By: #### L [id number] ####Marble Installer: DEANNE PARADADANA ([id number])[facility] (SBHLAB)[address] NEUTROPHILS ABSOLUTE 5.0 10*3/uL Normal 1.8-7.5 [facility] Comment on above: Performed By: #### L [id number] ####Marble Installer: DEANNE CARSON ([id number])[facility] ([facility])[address] Neutrophils/100 WBC (Bld) 79.0 % Normal 38.0-82.0 [facility] Comment on above: Performed By: #### L [id number] ####Marble Installer: DEANNE CARSON ([id number])[facility] [place] ([facility])[address] NRBC 0.0 /100 WBCs Normal 0.0-2.0 [facility] Comment on above: Performed By: #### L [id number] ####Marble Installer: DEANNE CARSON ([id number])[facility] [place] ([facility])[address] Platelet mean volume (Bld) [Entitic vol] 9.9 fL Normal 9.0-12.7 [facility] Comment on above: Performed By: #### L [id number] ####[place] Installer: DEANNE CARSON ([id number])[facility] [place] ([facility])[address] [place] [address] [place] Platelets (Bld) [#/Vol] 136 10*3/uL Low 140-440 [facility] Comment on above: Performed By: #### L [id number] ####[place] Installer: DEANNE CARSON ([id number])[facility] [place] ([facility])[address] [place] [address] [place] RBC (Bld) [#/Vol] 2.74 10*6/uL Low 4.40-5.90 [facility] Comment on above: Performed By: #### L [id number] ####[place] Installer: DEANNE CARSON ([id number])[facility] [place] ([facility])[address] [place] [address] [place] WBC (Bld) [#/Vol] 6.3 10*3/uL Normal 3.6-10.7 [facility] Comment on above: Performed By: #### L [id number] ####Marble Installer: DEANNE CARSON ([phone])[facility] (SBHLAB)[address] COMPREHENSIVE METABOLIC PANE Prasad 05-26-2024 Albumin [Mass/Vol] 1.2 g/dL Low 3.5-5.0 [facility] Comment on above: Performed By: #### L [id number] ####Marble Installer: DEANNE CARSON ([id number])[facility] [place] (SB[facility])[address] ALP [Catalytic activity/Vol] 155 U/L High 40-150 [facility] Comment on above: Performed By: #### L [id number] ####Marble Installer: DEANNE CARSON ([id number])[facility] ALT [Catalytic activity/Vol] U/L Normal <40 [facility] Comment on above: Performed By: #### L [id number] ####Marble Installer: DEANNE CARSON ([id number])[facility] ([facility] Anion gap [Moles/Vol] 9 mmol/L Normal 3-13 [facility] Comment on above: Performed By: #### L [id number] ####Marble Installer: DEANNE CARSON ([id number])[facility] ([facility])[address] AST [Catalytic activity/Vol] 18 U/L Normal <34 [facility] Comment on above: Performed By: #### L [id number] ####Marble Installer: DEANNE CARSON ([id number])[facility] ([facility])[address] Bilirubin [Mass/Vol] 0.4 mg/dL Normal <1.2 [facility] Comment on above: Performed By: #### L [id number] ####Marble Installer: DEANNE CARSON ([id number])[facility] [place] (SB[facility])[address] Calcium [Mass/Vol] 6.9 mg/dL Low 8.4-10.2 [facility] Comment on above: Performed By: #### L [id number] ####Marble Installer: DEANNE CARSON ([id number])[facility] [place] (SB[facility])[address] Chloride [Moles/Vol] 103 mmol/L Normal 98-107 [facility] Comment on above: Performed By: #### L [id number] ####Marble Installer: DEANNE CARSON ([id number])[facility] ([facility])[address] CO2 [Moles/Vol] 22 mmol/L Normal 22-29 [facility] Comment on above: Performed By: #### L [id number] ####Marble Installer: DEANNE CARSON ([id number])[facility] ([facility])[address] Creatinine [Mass/Vol] 0.60 mg/dL Low 0.72-1.25 [facility] Comment on above: Performed By: #### L [id number] ####Marble Installer: DEANNE CARSON ([id number])[facility] (SBHLAB)[address] GLOMERULAR FILTRATION RATE ML/MIN/1.73 SQ M.PREDICTED >90.0 Normal >60.0 [facility] Comment on above: Result Comment: Calc ulation based on the Chronic Kidney Disease Epidemiology Collaboration (CKD-EPI) equation refit without adjustment for race Performed By: #### L [id number] ####Marble Installer: DEANNE CARSON ([id number])[facility] ([facility])[address] Glucose [Mass/Vol] 145 mg/dL High 74-100 [facility] Comment on above: Performed By: #### L [id number] ####Marble Installer: DEANNE CARSON ([id number])[facility] (SBHLAB)[address] Potassium [Moles/Vol] 3.9 mmol/L Normal 3.5-5.1 [facility] Comment on above: Result Comment: [facility] potassium values may be up to 0.5 mmol/L lower than serum values. Performed By: #### L [id number] ####Marble Installer: DEANNE CARSON ([phone])[facility] (SBHLAB)[address] Protein [Mass/Vol] 5.2 g/dL Low 6.4-8.3 [facility] Comment on above: Performed By: #### L [id number] ####Marble Installer: DEANNE CARSON ([id number])[facility] (SBHLAB)[address] Sodium [Moles/Vol] 134 mmol/L Low 136-145 [facility] Comment on above: Performed By: #### L [id number] ####Marble Installer: DEANNE CARSON ([id number])[facility] ([facility])[address] Urea nitrogen [Mass/Vol] 11 mg/dL Normal 8-21 [facility] Comment on above: Performed By: #### L [id number] ####Marble Installer: DEANNE CARSON ([id number])[facility] ([facility])[address] Comprehensive metabolic 1998 panelon 05-26-2024 Albumin [Mass/Vol] 1.2 g/dL Low 3.5 - 5.0 g/dL [facility] ALP [Catalytic activity/Vol] 155 U/L High 40 - 150 U/L [facility] ALT [Catalytic activity/Vol] U/L NINF - 40 U/L [facility] Anion gap [Moles/Vol] 9 mmol/L 3 - 13 mmol/L [facility] AST [Catalytic activity/Vol] 18 U/L NINF - 34 U/L [facility] Bilirubin [Mass/Vol] 0.4 mg/dL NINF - 1.2 mg/dL [facility] Calcium [Mass/Vol] 6.9 mg/dL Low 8.4 - 10. 2 mg/dL [facility] Chloride [Moles/Vol] 103 mmol/L 98 - 10 7 mmol/L [facility] CO2 [Moles/Vol] 22 mmol/L 22 - 29 mmol/L [facility] Creatinine [Mass/Vol] 0.6 mg/dL Low 0.72 - 1.25 mg/dL [facility] GFR/1.73 sq M.predicted (S/P/Bld) [Vol rate/Area] - PINF [facility] Glucose [Mass/Vol] 145 mg/dL High 74 - 100 mg/dL [facility] Interpretation and review of laboratory results Abnormal [facility] Potassium [Moles/Vol] 3.9 mmol/L 3.5 - 5.1 mmol/L [facility] Protein [Mass/Vol] 5.2 g/dL Low 6.4 - 8.3 g/dL [facility] Sodium [Moles/Vol] 134 mmol/L Low 136 - 145 mmol/L [facility] Urea nitrogen [Mass/Vol] 11 mg/dL 8 - 21 mg/d L [facility] Laboratory - Chemistry and C hemistry - challengeon 05-26-2024 Glucose [Mass/Vol] 334 mg/dL High 70 - 100 mg/dL [facility] Glucose [Mass/Vol] 339 mg/dL High 70 - 100 mg/dL [facility] Glucose [Mass/Vol] 201 mg/dL High 70 - 100 mg/dL [facility] Glucose [Mass/Vol] 154 mg/dL High 70 - 100 mg/dL [facility] Glucose [Mass/Vol] 154 mg/dL High 70 - 100 mg/dL [facility] Glucose [Mass/Vol] 171 mg/dL High 70 - 100 mg/dL [facility] Laboratory - Microbiology an d Antimicrobial susceptibilityon 05-26-2024 Bacteria identified Cx Nom (Bld) No growth at 5 days [facility] Bacteria identified Cx Nom (Bld) No growth at 5 days [facility] No Panel Informationon 05-26 Interpretation and review of laboratory results Abnormal [facility] Interpretation and review of laboratory results Abnormal [facility] Interpretation and review of laboratory results Abnormal [facility] Interpretation and review of laboratory results Abnormal [facility] Interpretation and review of laboratory results Abnormal [facility] Interpretation and review of laboratory results Abnormal [facility] Nursing Noteon 05-26-2024 Nursing Note Patient's ostomy bag was leaking under transparent dressing. Ostomy bag was completely removed and replaced with a new one. Patient tolerated this well. Stoma is red and moist and is currently held in place by white plastic rods that are stitched in. Normal [facility] Nursing Note Pt knows name and birthday did not know where he was or why at this time Normal [facility] Nursing Note To 2 east via bed on 3 l of o2 report to danny pt resting on left side there is some sero sanguinous drng from the surgical area as there is saline kerlix packed in wound Normal [facility] Op Noteon 05-26-2024 Op Note Normal [facility] Progress Noteon 05-26-2024 Progress [facility] Progress [facility] Normal [facility] Progress Note Normal [facility] 30on 05-25-2024 30 Normal [facility] Bacteria identified Aer cx N om (Unsp spec)on 05-25-2024 Gram Stain Result Few Polymorphonuclear leukocytes per low power field Abnormal [facility] Gram Stain Result Positive Abnormal [facility] Gram Stain Result Negative Abnormal [facility] Interpretation and review of laboratory results Abnormal [facility] PBP2A Negative [facility] Gram Stain Result Moderate Polymorphonuclear leukocytes per low power field Abnormal [facility] Gram Stain Result Positive Abnormal [facility] Gram Stain Result Few Yeast Abnormal [facility] Gram Stain Result Negative Abnormal [facility] Gram Stain Result Rare Yeast Abnormal [facility] Interpretation and review of laboratory results Abnormal [facility] Gram Stain Result Rare Polymorphonuclear leukocytes per low power field Abnormal [facility] Bacteria identified Aer cx N om (Unsp spec)Ordered By: Rojelio Harper on 05-25-2024 Gram Stain Result No polymorphonuclear leukocytes seen Abnormal [facility] PBP2A Negative [facility] CALCIUM, IONIZEDon CALCIUM IONIZED 4.10 mg/dL Low 4.30-5.20 [facility] Comment on above: Performed By: #### L [id number] ####Marble Installer: DEANNE CASRON ([id number])[facility] ([facility])[address] [place] [address] PH, IONIZED CALCIUM 7.45 Normal 7.31-7.46 [facility] Comment on above: Performed By: #### L [id number] ####Marble Installer: DEANNE CARSON ([id number])[facility] CBC W Auto Differential pane l (Bld)on 05-25-2024 Erythrocyte distribution width (RBC) [Ratio] 13.9 % 11.5 - 15.0 % [facility] Hematocrit (Bld) [Volume fraction] 22.1 % Low 40.0 - 52.0 % [facility] Hemoglobin (Bld) [Mass/Vol] 7.1 g/dL Low 13.0 - 18.0 g/dL [facility] MCH (RBC) [Entitic mass] 25.9 pg Low 26. 0 - 34.0 pg [facility] MCHC (RBC) [Mass/Vol] 32.1 % 30.5 - 36.0 % [facility] MCV (RBC) [Entitic vol] 80.7 fL 77.0 - 99.0 fL [facility] Platelet mean volume (Bld) [Entitic vol] 9.5 fL 9.0 - 12.7 fL [facility] Platelets (Bld) [#/Vol] 146 10*3/uL 140 - 440 10*3/uL [facility] RBC (Bld) [#/Vol] 2.74 10*6/uL Low 4.40 - 5.9 0 10*6/uL [facility] WBC (Bld) [#/Vol] 7.2 10*3/uL 3.6 - 10.7 10*3/uL [facility] Issuu CBC WITH AUTO DIFFERENTIALon 05-25-2024 Erythrocyte distribution width (RBC) [Ratio] 13.9 % Normal 11.5-15.0 [facility] Comment on above: Performed By: #### L [id number], [id number] ####Marble Installer: DEANNE CARSON ([id number])[facility] (SBHLAB)[address] Hematocrit (Bld) [Volume fraction] 22.1 % Low 40.0-52.0 [facility] Comment on above: Performed By: #### L [id number], [id number] ####Marble Installer: DEANNE CARSON ([id number])[facility] [place] (SBHLAB)[address] Hemoglobin (Bld) [Mass/Vol] 7.1 g/dL Low 13.0-18.0 [facility] Comment on above: Performed By: #### L [id number], [id number] ####Marble Installer: DEANNEBERENICE CARSON ([id number])[facility] SYSTEM[facility]ETER[facility] (SBHLAB)[address] MCH (RBC) [Entitic mass] 25.9 pg Low 26.0-34.0 [facility] Comment on above: Performed By: #### L [id number], [id number] ####Marble Installer: DEANNE CABALLEROKACIEDANA ([id number])[facility] [place] (SBHLAB)[address] MCHC 32.1 % Normal 30.5-36.0 [facility] Comment on above: Performed By: #### L [id number], [id number] ####Marble Installer: DEANNE PARADADANA ([id number])[facility]ER[facility] [place] (SBHLAB)[address] MCV (RBC) [Entitic vol] 80.7 fL Normal 77.0-99.0 [facility] Comment on above: Performed By: #### L [id number], [id number] ####Marble Installer: DEANNE PARADADANA ([id number])[facility]ER[facility] (SBHLAB)[address] Platelet mean volume (Bld) [Entitic vol] 9.5 fL Normal 9.0-12.7 [facility] Comment on above: Performed By: #### L [id number], [id number] ####Marble Installer: DEANNE CARSON ([id number])[facility] [place] (SBHLAB)[address] Platelets (Bld) [#/Vol] 146 10*3/uL Normal 140-440 [facility] Comment on above: Performed By: #### L [id number], [id number] ####Marble Installer: DEANNE CARSON ([id number])[facility] (SBHLAB)[address] RBC (Bld) [#/Vol] 2.74 10*6/uL Low 4.40-5.90 [facility] Comment on above: Performed By: #### L [id number], [id number] ####Marble Installer: DEANNE CARSON ([phone])[facility] (SBHLAB)[address] WBC (Bld) [#/Vol] 7.2 10*3/uL Normal 3.6-10.7 [facility] Comment on above: Performed By: #### L [id number], [id number] ####Marble Installer: DEANNE CARSON ([id number])[facility] [place] (SBHLAB)[address] COMPREHENSIVE METABOLIC PANE Prasad 05-25-2024 Albumin [Mass/Vol] 1.2 g/dL Low 3.5-5.0 [facility] Comment on above: Performed By: #### L [id number] ####Marble Installer: DEANNE CARSON ([id number])[facility] SYSTEM[facility] (SBHLAB)[address] [place] [address] [place] ALP [Catalytic activity/Vol] 130 U/L Normal 40-150 [facility] Comment on above: Performed By: #### L [id number] ####Marble Installer: DEANNE CARSON ([id number])[facility] (SBHLAB)[address] ALT [Catalytic activity/Vol] U/L Normal <40 [facility] Comment on above: Performed By: #### L [id number] ####Marble Installer: DEANNE CARSON ([id number])[facility] [place] (SB[facility]AB)[address] Anion gap [Moles/Vol] 6 mmol/L Normal 3-13 [facility] Comment on above: Performed By: #### L [id number] ####Marble Installer: DEANNE CARSON ([id number])[facility] (SB[facility]AB)[address] AST [Catalytic activity/Vol] 17 U/L Normal <34 [facility] Comment on above: Performed By: #### L [id number] ####Marble Installer: DEANNE CARSON ([id number])[facility] (HLAB)[address] Bilirubin [Mass/Vol] 0.3 mg/dL Normal <1.2 [facility] Comment on above: Performed By: #### L [id number] ####Marble Installer: DEANNE CARSON ([id number])[facility] (HLAB)[address] Calcium [Mass/Vol] 7.2 mg/dL Low 8.4-10.2 [facility] Comment on above: Performed By: #### L [id number] ####Marble Installer: DEANNE CARSON ([id number])[facility] (SBHLAB)[address] Chloride [Moles/Vol] 106 mmol/L Normal 98-107 [facility] Comment on above: Performed By: #### L [id number] ####Marble Installer: DEANNE CARSON ([id number])[facility] (SBHLAB)[address] CO2 [Moles/Vol] 23 mmol/L Normal 22-29 [facility] Comment on above: Performed By: #### L [id number] ####Marble Installer: DEANNE CARSON ([id number])[facility] [place] (SBHLAB)[address] [place] [address] [place] Creatinine [Mass/Vol] 0.63 mg/dL Low 0.72-1.25 [facility] Comment on above: Performed By: #### L [id number] ####Marble Installer: DEANNE CARSON ([id number])[facility] [place] (SBHLAB)[address] [place] [address] [place] GLOMERULAR FILTRATION RATE ML/MIN/1.73 SQ M.PREDICTED >90.0 Normal >60.0 [facility] Comment on above: Result Comment: Calc ulation based on the Chronic Kidney Disease Epidemiology Collaboration (CKD-EPI) equation refit without adjustment for race Performed By: #### L [id number] ####Marble Installer: DEANNE CARSON ([id number])[facility] [place] (SB[facility]AB)[address] [place] [address] [place] Glucose [Mass/Vol] 102 mg/dL High 74-100 [facility] Comment on above: Performed By: #### L [id number] ####Marble Installer: DEANNE CARSON ([id number])[facility] (SBHLAB)[address] [place] [address] [place] Potassium [Moles/Vol] 3.8 mmol/L Normal 3.5-5.1 [facility] Comment on above: Result Comment: [facility] potassium values may be up to 0.5 mmol/L lower than serum values. Performed By: #### L [id number] ####Marble Installer: DEANNE CARSON ([id number])[facility] [place] (SBHLAB)[address] [place] [address] [place] Protein [Mass/Vol] 5.4 g/dL Low 6.4-8.3 [facility] Comment on above: Performed By: #### L AB17 ####Marble Installer: DEANNE CARSON ([id number])[facility] [place] (SB[facility]AB)[address] [place] [address] [place] Sodium [Moles/Vol] 135 mmol/L Low 136-145 [facility] Comment on above: Performed By: #### L [id number] ####Marble Installer: DEANNE CARSON ([id number])[facility] (SBHLAB)[address] [place] [address] Urea nitrogen [Mass/Vol] 15 mg/dL Normal 8-21 [facility] Comment on above: Performed By: #### L [id number] ####Marble Installer: DEANNE CARSON ([id number])[facility] (SBHLAB)[address] [place] [address] Calcium.ionized [Moles/Vol]O rdered By: Anthony Ann on 05-25-2024 Calcium.ionized (Bld) [Moles/Vol] 4.1 mg/dL Low 4.30 - 5.20 mg/dL [facility] Interpretation and review of laboratory results Abnormal [facility] PH, IONIZED CALCIUM 7.45 7.31 - 7.46 [facility] Comprehensive metabolic 1998 panelon 05-25-2024 Albumin [Mass/Vol] 1.2 g/dL Low 3.5 - 5.0 g/dL [facility] ALP [Catalytic activity/Vol] 130 U/L 40 - 150 U/L [facility] ALT [Catalytic activity/Vol] U/L [facility] - 40 U/L [facility] Anion gap [Moles/Vol] 6 mmol/L 3 - 13 mmol/L [facility] AST [Catalytic activity/Vol] 17 U/L [facility] U/L [facility] Bilirubin [Mass/Vol] 0.3 mg/dL NINF - 1.2 mg/dL [facility] Calcium [Mass/Vol] 7.2 mg/dL Low 8.4 - 10. 2 mg/dL [facility] Chloride [Moles/Vol] 106 mmol/L 98 - 10 7 mmol/L [facility] CO2 [Moles/Vol] 23 mmol/L 22 - 29 mmol/L [facility] Creatinine [Mass/Vol] 0.63 mg/dL Low 0.72 - 1.25 mg/dL [facility] GFR/1.73 sq M.predicted (S/P/Bld) [Vol rate/Area] - PINF [facility] Glucose [Mass/Vol] 102 mg/dL High 74 - 100 mg/dL [facility] Interpretation and review of laboratory results Abnormal [facility] Potassium [Moles/Vol] 3.8 mmol/L 3.5 - 5.1 mmol/L [facility] Protein [Mass/Vol] 5.4 g/dL Low 6.4 - 8.3 g/dL [facility] Sodium [Moles/Vol] 135 mmol/L Low 136 - 145 mmol/L [facility] Urea nitrogen [Mass/Vol] 15 mg/dL 8 - 21 mg/d L [facility] Laboratory - Chemistry and C hemistry - challengeon 05-25-2024 Glucose [Mass/Vol] 154 mg/dL High 70 - 100 mg/dL [facility] Glucose [Mass/Vol] 212 mg/dL High 70 - 100 mg/dL [facility] Glucose [Mass/Vol] 233 mg/dL High 70 - 100 mg/dL [facility] Glucose [Mass/Vol] 148 mg/dL High 70 - 100 mg/dL [facility] Glucose [Mass/Vol] 103 mg/dL High 70 - 100 mg/dL [facility] Laboratory - Microbiology an d Antimicrobial susceptibilityon 05-25-2024 Bacteria identified Aer cx Nom (Unsp spec) Moderate skin donna present [facility] Bacteria identified Aer cx Nom (Unsp spec) Moderate Staphylococcus aureus [facility] Bacteria identified Aer cx Nom (Unsp spec) Few Escherichia coli Abnormal [facility] Bacteria identified Aer cx Nom (Unsp spec) Moderate skin donna present [facility] Bacteria identified Aer cx Nom (Unsp spec) Moderate Staphylococcus aureus Abnormal [facility] Bacteria identified Aer cx Nom (Unsp spec) Few Escherichia coli Abnormal [facility] Bacteria identified Aer cx Nom (Unsp spec) Few Staphylococcus aureus Abnormal [facility] Bacteria identified Aer cx Nom (Unsp spec) Rare Escherichia coli Abnormal [facility] Laboratory - Microbiology an d Antimicrobial susceptibilityOrdered By: Rojelio Harper on 05-25-2024 Bacteria identified Aer cx Nom (Unsp spec) Many Staphylococcus aureus Abnormal [facility] Bacteria identified Aer cx Nom (Unsp spec) Many Escherichia coli Abnormal [facility] Laboratory - Miscellaneous t estson 05-25-2024 Service comment (Unsp spec) [Interp] 0.082 [facility] Laboratory - Serology - non- microon 05-25-2024 Heparin induced platelet Ab Ql (S) Negative Negative [facility] MANUAL DIFFERENTIALon 2024 BAND NEUTROPHILS TOTAL PER COUNTED LEUKOCYTES BY MANUAL COUNT 4 Normal [facility] Comment on above: Performed By: #### L [id number], [id number] ####Marble Installer: DEANNE CARSON ([phone])[facility] [place] (SB[facility]AB)[address] BANDS 0.3 10*3/uL High <=0.0 [facility] Comment on above: Performed By: #### L [id number], [id number] ####Marble Installer: DEANNE CARSON ([phone])[facility] [place] (SB[facility]AB)[address] CELLS COUNTED TOTAL (#) IN BLOOD 100 Normal [facility] Comment on above: Performed By: #### L [id number], [id number] ####Marble Installer: DEANNE CARSON ([id number])[facility] [place] (SB[facility])[address] [place] [address] DIFFERENTIAL METHOD Manual differential performed Normal [facility] Comment on above: Performed By: #### L [id number], [id number] ####Marble Installer: DEANNE CARSON ([id number])[facility] [place] (SB[facility])[address] LEUKOCYTE MORPHOLOGY FINDING IN BLOOD Normal Normal [facility] Comment on above: Performed By: #### L [id number], [id number] ####Marble Installer: DEANNE CARSON ([id number])[facility] [place] ([facility])[address] LEUKOCYTES (10*3/UL) NUCLEATED ERYTHROCYTE ADJUST 7.2 10*3/uL Normal 3.6-10.7 [facility] Comment on above: Performed By: #### L [id number], [id number] ####Marble Installer: DEANNE CARSON ([id number])[facility] [place] ([facility])[address] LYMPHOCYTES (10*3/UL) IN BLOOD BY MANUAL COUNT 0.2 10*3/uL Low 1.0-4.3 [facility] Comment on above: Performed By: #### L [id number], [id number] ####Marble Installer: DEANNE CARSON ([id number])[facility] [place] (SB[facility])[address] [place] [address] [place] LYMPHOCYTES TOTAL PER COUNTED LEUKOCYTES BY MANUAL COUNT 3 Normal [facility] Comment on above: Performed By: #### L [id number], [id number] ####Marble Installer: DEANNE CARSON ([phone])[facility] [place] (SB[facility])[address] [place] [address] [place] LYMPHOCYTES/100 LEUKOCYTES IN BLOOD BY MANUAL COUNT 3 % Low 15-45 [facility] Comment on above: Performed By: #### L [id number], [id number] ####Marble Installer: DEANNE PARADADANA ([id number])[facility] [place] (SB[facility])[address] [place] [address] [place] MONOCYTES (10*3/UL) IN BLOOD BY MANUAL COUNT 0.1 10*3/uL Normal 0.0-0.9 [facility] Comment on above: Performed By: #### L [id number], [id number] ####Marble Installer: DEANNE CARSON ([id number])[facility] [place] (SB[facility])[address] [place] [address] [place] MONOCYTES TOTAL PER COUNTED LEUKOCYTES BY MANUAL COUNT 1 Normal [facility] [facility] Comment on above: Performed By: #### L [id number], [id number] ####Marble Installer: DEANNE CARSON ([id number])[facility] (SBHLAB)[address] [place] [address] [place] MONOCYTES/100 LEUKOCYTES IN BLOOD BY MANUAL COUNT 1 % Low 5-13 [facility] Comment on above: Performed By: #### L [id number], [id number] ####Marble Installer: DEANNE CARSON ([phone])[facility] [place] ([facility])[address] [place] [address] [place] NEUTROPHILS (SEGS+BANDS) (10*3/UL) BY MANUAL COUNT 6.9 10*3/uL Normal 1.8-7.0 [facility] Comment on above: Performed By: #### L [id number], [id number] ####Marble Installer: DEANNE CARSON ([phone])[facility] (SB[facility])[address] [place] [address] [place] NEUTROPHILS BAND FORM/100 LEUKOCYTES IN BLOOD BY MANUAL COUNT 4 % High <=0 [facility] Comment on above: Performed By: #### L [id number], [id number] ####Marble Installer: DEANNE CARSON ([id number])[facility] [place] ([facility])[address] NEUTROPHILS TOTAL PER COUNTED LEUKOCYTES BY MANUAL COUNT 92 Normal [facility] Comment on above: Performed By: #### L [id number], [id number] ####Marble Installer: DEANNE CARSON ([phone])[facility] [place] ([facility])[address] [place] [address] [place] PLATELET MORPHOLOGY IN BLOOD Normal Normal [facility] Comment on above: Performed By: #### L [id number], [id number] ####Marble Installer: DEANNE CARSON ([id number])[facility] [place] ([facility])[address] [place] [address] [place] POLYCHROMASIA IN BLOOD BY LIGHT MICROSCOPY Slight Abnormal (none) [facility] Comment on above: Performed By: #### L [id number], [id number] ####Marble Installer: DEANNE CARSON ([id number])[facility] [place] ([facility])[address] [place] [address] [place] SEGEMENTED NEUTROPHILS/100 LEUKOCYTES BY MANUAL COUNT 92 % High 38-82 [facility] Comment on above: Performed By: #### L [id number], [id number] ####Marble Installer: DEANNE CARSON ([id number])[facility] [place] ([facility])[address] [place] [address] [place] SEGMENTED NEUTROPHILS (10*3/UL)IN BLOOD BY MANUAL COUNT 6.9 10*3/uL Normal 1.8-7.5 [facility] Comment on above: Performed By: #### L [id number], [id number] ####Marble Installer: DEANNE CARSON ([phone])[facility] (SBHLAB)[address] [place] [address] Manual differential performe d Ql (Bld)on 05-25-2024 Band form neutrophils (Bld) [#/Vol] 0.3 10*3/uL High NINF - 0.0 10*3/uL [facility] Band form neutrophils/100 WBC (Bld) 4 % High NINF - 0 % [facility] Bands Manual 4 [facility] Cells Counted Total (Bld) [#] 100 {cells} [facility] Differential Method Manual differential performed [facility] Leukocyte morphology finding Nom (Bld) Normal [facility] Lymphocytes (Bld) [#/Vol] 0.2 10*3/uL Low 1.0 - 4.3 10*3/uL [facility] Lymphocytes Manual 3 [facility] Lymphocytes/100 WBC (Bld) 3 % Low 15 - 45 % [facility] Monocytes (Bld) [#/Vol] 0.1 10*3/uL 0.0 - 0.9 10*3/uL [facility] Monocytes Manual 1 [facility] alth Monocytes/100 WBC (Bld) 1 % Low 5 - 13 % [facility] Neutrophils (Bld) [#/Vol] 6.9 10*3/uL 1.8 - 7.5 10*3/uL [facility] Neutrophils Manual 92 [facility] Platelet morphology finding Nom (Bld) Normal [facility] Polychromasia LM Ql (Bld) Slight Abnormal (none) [facility] Segmented neutrophils/100 WBC (Bld) 92 % High 38 - 82 % [facility] WBC corrected for nucl RBC (Bld) [#/Vol] 7.2 10*3/uL 3.6 - 10.7 10*3/uL [facility] No Panel Informationon 05-25 Interpretation and review of laboratory results Abnormal [facility] Interpretation and review of laboratory results Abnormal [facility] Interpretation and review of laboratory results Abnormal [facility] Interpretation and review of laboratory results Abnormal [facility] Interpretation and review of laboratory results Abnormal [facility] Interpretation and review of laboratory results Abnormal [facility] Progress Noteon 05-25-2024 Progress Note Normal [facility] Progress Note Normal [facility] BASIC METABOLIC PANELon 05-10 Anion gap [Moles/Vol] 8 mmol/L Normal 3-13 [facility] Comment on above: Performed By: #### L [id number] ####Marble Installer: DEANNE CARSON ([id number])[facility] [place] ([facility])[address] Calcium [Mass/Vol] 6.8 mg/dL Low 8.4-10.2 [facility] Comment on above: Performed By: #### L [id number] ####Marble Installer: DEANNE CARSON ([id number])[facility] [place] ([facility])[address] [place] [address] [place] Chloride [Moles/Vol] 103 mmol/L Normal 98-107 [facility] Comment on above: Performed By: #### L [id number] ####Marble Installer: DEANNE CARSON ([phone])[facility] [place] ([facility])[address] CO2 [Moles/Vol] 19 mmol/L Low 22-29 [facility] Comment on above: Performed By: #### L AB15 ####Marble Installer: DEANNE CARSON ([id number])[facility] [place] ([facility])[address] [place] [address] [place] Creatinine [Mass/Vol] 0.66 mg/dL Low 0.72-1.25 [facility] Comment on above: Performed By: #### L [id number] ####Marble Installer: DEANNE CARSON ([phone])[facility] [place] ([facility])[address] GLOMERULAR FILTRATION RATE ML/MIN/1.73 SQ M.PREDICTED >90.0 Normal >60.0 [facility] Comment on above: Result Comment: Calc ulation based on the Chronic Kidney Disease Epidemiology Collaboration (CKD-EPI) equation refit without adjustment for race Performed By: #### L [id number] ####Marble Installer: DEANNE CARSON ([id number])[facility] LO[facility]ZAY[facility]EL[facility] (SBHL[facility])[address] Glucose [Mass/Vol] 363 mg/dL High 74-100 [facility] Comment on above: Performed By: #### L [id number] ####Marble Installer: DEANNE CARSON ([phone])[facility] (SBHLAB)[address] Potassium [Moles/Vol] 4.0 mmol/L Normal 3.5-5.1 [facility] Comment on above: Result Comment: [facility] potassium values may be up to 0.5 mmol/L lower than serum values. Performed By: #### L AB15 ####Marble Installer: DEANNE CARSON ([phone])[facility] SYSTEM[facility] (HLAB)[address] Sodium [Moles/Vol] 130 mmol/L Low 136-145 [facility] Comment on above: Performed By: #### L AB15 ####Marble Installer: DEANNE CARSON ([id number])[facility] (HLAB)[address] Urea nitrogen [Mass/Vol] 15 mg/dL Normal 8-21 [facility] Comment on above: Performed By: #### L AB15 ####Marble Installer: DEANNE CARSON ([phone])[facility] (SBHLAB)[address] Basic metabolic 1998 panelon 05-24-2024 Anion gap [Moles/Vol] 8 mmol/L 3 - 13 mmol/L [facility] Calcium [Mass/Vol] 6.8 mg/dL Low 8.4 - 10. 2 mg/dL [facility] Chloride [Moles/Vol] 103 mmol/L 98 - 10 7 mmol/L [facility] CO2 [Moles/Vol] 19 mmol/L Low 22 - 29 mmol/L [facility] Creatinine [Mass/Vol] 0.66 mg/dL Low 0.72 - 1.25 mg/dL [facility] GFR/1.73 sq M.predicted (S/P/Bld) [Vol rate/Area] - PINF [facility] Glucose [Mass/Vol] 363 mg/dL High 74 - 100 mg/dL [facility] Interpretation and review of laboratory results Abnormal [facility] Potassium [Moles/Vol] 4 mmol/L 3.5 - 5.1 mmol/L [facility] Sodium [Moles/Vol] 130 mmol/L Low 136 - 145 mmol/L [facility] Urea nitrogen [Mass/Vol] 15 mg/dL 8 - 21 mg/d L [facility] CBC W Auto Differential pane l (Bld)Ordered By: Derrick Lee on 05-24-2024 Erythrocyte distribution width (RBC) [Ratio] 14.1 % 11.5 - 15.0 % [facility] Hematocrit (Bld) [Volume fraction] 21.9 % Low 40.0 - 52.0 % [facility] Hemoglobin (Bld) [Mass/Vol] 7 g/dL Low 13.0 - 18.0 g/dL [facility] MCH (RBC) [Entitic mass] 25.9 pg Low 26. 0 - 34.0 pg [facility] MCHC (RBC) [Mass/Vol] 32 % 30.5 - 36.0 % [facility] MCV (RBC) [Entitic vol] 81.1 fL 77.0 - 99.0 fL [facility] Platelet mean volume (Bld) [Entitic vol] 10.3 fL 9.0 - 12.7 fL [facility] Platelets (Bld) [#/Vol] 117 10*3/uL Low 140 - 440 10*3/uL [facility] RBC (Bld) [#/Vol] 2.7 10*6/uL Low 4.40 - 5.9 0 10*6/uL [facility] WBC (Bld) [#/Vol] 5.2 10*3/uL 3.6 - 10.7 10*3/uL [facility] CBC WITH AUTO DIFFERENTIALon 05-24-2024 Erythrocyte distribution width (RBC) [Ratio] 14.1 % Normal 11.5-15.0 [facility] Comment on above: Performed By: #### L [id number], [id number] ####Marble Installer: DEANNE CARSON ([id number])[facility] LO[facility]ZAYARELIS (SBHLAB)[address] Hematocrit (Bld) [Volume fraction] 21.9 % Low 40.0-52.0 [facility] Comment on above: Performed By: #### L [id number], [id number] ####Marble Installer: DEANNE CARSON ([id number])[facility] SYSTEM[facility] LOAIZAPRESBYTERIAN HOSPITALLeigh (SBHLAB)[address] Hemoglobin (Bld) [Mass/Vol] 7.0 g/dL Low 13.0-18.0 [facility] Comment on above: Performed By: #### L [id number], [id number] ####Marble Installer: DEANNE CARSON ([id number])[facility] SYSTEMGalo [facility]AVETER[facility] (SBHLAB)[address] MCH (RBC) [Entitic mass] 25.9 pg Low 26.0-34.0 [facility] Comment on above: Performed By: #### L [id number], [id number] ####Marble Installer: DEANNE CARSON ([phone])[facility] SYSTEM[facility] LOAIZAPRESBYTERIAN HOSPITALLeigh (SBHLAB)[address] MCHC 32.0 % Normal 30.5-36.0 [facility] Comment on above: Performed By: #### L [id number], [id number] ####Marble Installer: DEANNE CARSON ([id number])[facility] SYSTEM[facility] LOAIZAVETERANS [facility] (SBHLAB)[address] MCV (RBC) [Entitic vol] 81.1 fL Normal 77.0-99.0 [facility] Comment on above: Performed By: #### L [id number], [id number] ####Marble Installer: DEANNE CARSON ([id number])[facility] SYSTEM[facility]alo [facility]ZAVETER[facility] (SBHLAB)[address] Platelet mean volume (Bld) [Entitic vol] 10.3 fL Normal 9.0-12.7 [facility] Comment on above: Performed By: #### L [id number], [id number] ####Marble Installer: DEANNE CARSON ([id number])[facility] SYSTEM[facility] PUTNAMLeigh (SBHLAB)[address] Platelets (Bld) [#/Vol] 117 10*3/uL Low 140-440 [facility] Comment on above: Performed By: #### L [id number], [id number] ####Marble Installer: DEANNE CARSON ([id number])[facility] (SBHLAB)[address] RBC (Bld) [#/Vol] 2.70 10*6/uL Low 4.40-5.90 [facility] Comment on above: Performed By: #### L [id number], [id number] ####Marble Installer: DEANNE CARSON ([phone])[facility] SYSTEM[facility] LOAIZAVETERANS [facility] (SBHLAB)[address] WBC (Bld) [#/Vol] 5.2 10*3/uL Normal 3.6-10.7 [facility] Comment on above: Performed By: #### L [id number], [id number] ####Marble Installer: DEANNE CARSON ([phone])[facility] (SBHLAB)[address] Laboratory - Chemistry and C hemistry - challengeon 05-24-2024 Glucose [Mass/Vol] 186 mg/dL High 70 - 100 mg/dL [facility] Glucose [Mass/Vol] 319 mg/dL High 70 - 100 mg/dL [facility] Glucose [Mass/Vol] 315 mg/dL High 70 - 100 mg/dL [facility] Glucose [Mass/Vol] 374 mg/dL High 70 - 100 mg/dL [facility] Glucose [Mass/Vol] 352 mg/dL High 70 - 100 mg/dL [facility] Glucose [Mass/Vol] 339 mg/dL High 70 - 100 mg/dL [facility] Laboratory - Hematology and Cell countson 05-24-2024 Lymphocytes (Bld) [#/Vol] 0.2 10*3/uL Low 1.0 - 4.3 10*3/uL [facility] Lymphocytes/100 WBC (Bld) 4 % Low 15 - 45 % [facility] Monocytes (Bld) [#/Vol] 0.1 10*3/uL 0.0 - 0.9 10*3/uL [facility] Monocytes/100 WBC (Bld) 1 % Low 5 - 13 % [facility] Neutrophils (Bld) [#/Vol] 4.9 10*3/uL 1.8 - 7.5 10*3/uL [facility] RBC morphology finding Nom (Bld) Normal [facility] Segmented neutrophils/100 WBC (Bld) 95 % High 38 - 82 % [facility] MANUAL DIFFERENTIAL (CELLAVI NAVEED)on 05-24-2024 BAND NEUTROPHILS TOTAL PER COUNTED LEUKOCYTES BY MANUAL COUNT [facility] Comment on above: Performed By: #### L [id number], [id number] ####Marble Installer: DEANNE CARSON ([id number])[facility] BARBPRESBYTERIAN HOSPITALN (SBHLAB)[address] BASOPHILS TOTAL PER COUNTED LEUKOCYTES BY MANUAL COUNT [facility] Comment on above: Performed By: #### L [id number], [id number] ####Marble Installer: DEANNE CARSON ([id number])[facility] [place] ([facility])[address] BLASTS TOTAL PER COUNTED LEUKOCYTES BY MANUAL COUNT [facility] Comment on above: Performed By: #### L [id number], [id number] ####Marble Installer: DEANNE CARSON ([phone])[facility] [place] ([facility])[address] [place] [address] [place] EOSINOPHILS TOTAL PER COUNTED LEUKOCYTES BY MANUAL COUNT [facility] Comment on above: Performed By: #### L [id number], [id number] ####Marble Installer: DEANNE CARSON ([id number])[facility] [place] ([facility])[address] [place] [address] [place] LYMPHOCYTES (10*3/UL) IN BLOOD-CELLAVISION 0.2 10*3/uL Low 1.0-4.3 [facility] Comment on above: Performed By: #### L [id number], [id number] ####Marble Installer: DEANNE CARSON ([phone])[facility] [place] (SB[facility])[address] [place] [address] [place] LYMPHOCYTES TOTAL PER COUNTED LEUKOCYTES BY MANUAL COUNT 4 Normal [facility] Comment on above: Performed By: #### L [id number], [id number] ####Marble Installer: DEANNE CARSON ([id number])[facility] [place] ([facility])[address] [place] [address] [place] LYMPHOCYTES/100 LEUKOCYTES IN BLOOD-CELLAVISION 4 % Low 15-45 [facility] Comment on above: Performed By: #### L [id number], [id number] ####Marble Installer: DEANNE CARSON ([id number])[facility] [place] ([facility])[address] [place] [address] [place] METAMYELOCYTES TOTAL PER COUNTED LEUKOCYTES BY MANUAL COUNT Normal [facility] Comment on above: Performed By: #### L [id number], [id number] ####Marble Installer: DEANNE CARSON ([id number])[facility] [place] ([facility])[address] [place] [address] [place] MONOCYTES (10*3/UL) IN BLOOD-CELLAVISION 0.1 10*3/uL Normal 0.0-0.9 [facility] Comment on above: Performed By: #### L [id number], [id number] ####Marble Installer: DEANNE CARSON ([phone])[facility] [place] ([facility])[address] [place] [address] [place] MONOCYTES TOTAL PER COUNTED LEUKOCYTES BY MANUAL COUNT 1 Normal [facility] Comment on above: Performed By: #### L [id number], [id number] ####Marble Installer: DEANNE CARSON ([id number])[facility] [place] ([facility])[address] [place] [address] [place] MONOCYTES/100 LEUKOCYTES IN BLOOD-LYNETTE 1 % Low 5-13 [facility] Comment on above: Performed By: #### L [id number], [id number] ####Marble Installer: DEANNE CARSON ([id number])[facility] (SBHLAB)[address] [place] [address] [place] MYELOCYTES COUNTED BY MANUAL COUNT [facility] Comment on above: Performed By: #### L [id number], [id number] ####Marble Installer: DEANNE CARSON ([id number])[facility] [place] ([facility])[address] [place] [address] [place] NEUTROPHILS TOTAL PER COUNTED LEUKOCYTES BY MANUAL COUNT 102 [facility] Comment on above: Performed By: #### L [id number], [id number] ####Marble Installer: DEANNE CARSON ([id number])[facility] [place] ([facility])[address] PROMYELOCYTES TOTAL PER COUNTED LEUKOCYTES BY MANUAL COUNT [facility] Comment on above: Performed By: #### L [id number], [id number] ####Marble Installer: DEANNE CARSON ([id number])[facility] [place] ([facility])[address] [place] [address] [place] RBC MORPHOLOGY IN BLOOD Normal Normal [facility] Comment on above: Performed By: #### L [id number], [id number] ####Marble Installer: DEANNE CARSON ([id number])[facility] [place] ([facility])[address] [place] [address] [place] SEGMENTED NEUTROPHILS (10*3/UL) IN BLOOD-CELLAVISION 4.9 10*3/uL Normal 1.8-7.5 [facility] Comment on above: Performed By: #### L [id number], [id number] ####Marble Installer: DEANNE CARSON ([id number])[facility] [place] ([facility])[address] [place] [address] [place] SEGMENTED NEUTROPHILS/100 LEUKOCYTES-CE 95 % High 38-82 [facility] Comment on above: Performed By: #### L [id number], [id number] ####Marble Installer: DEANNE CARSON ([phone])[facility] [place] ([facility])[address] UNCLASSIFIED CELLS TOTAL PER COUNTED LEUKOCYTES BY MANUAL COUNT Normal [facility] Comment on above: Performed By: #### L [id number], [id number] ####Marble Installer: DEANNE ALLI ([phone])[facility] (SBHLAB)[address] VARIANT LYMPHOCYTES TOTAL PER COUNTED LEUKOCYTES BY MANUAL COUNT Normal [facility] Comment on above: Performed By: #### L [id number], [id number] ####Marble Installer: DEANNE ALLI ([phone])[facility] (SBHLAB)[address] No Panel Informationon 05-24 Interpretation and review of laboratory results Abnormal [facility] Interpretation and review of laboratory results Abnormal [facility] Interpretation and review of laboratory results Abnormal [facility] Interpretation and review of laboratory results Abnormal [facility] Interpretation and review of laboratory results Abnormal [facility] Interpretation and review of laboratory results Abnormal [facility] Lymphocytes Manual 4 [facility] Monocytes Manual 1 [facility] alth Neutrophils Manual 102 [facility] No Panel InformationOrdered By: Derrick Lee on 05-24-2024 Interpretation and review of laboratory results Abnormal [facility] Progress Noteon 05-24-2024 Progress Note Normal [facility] Progress Note Normal [facility] [id number] 05-23-2024 [id number] Normal [facility] [id number] 05-23-2024 [id number] Normal [facility] Anesthesia Noteon 05-23-2024 Anesthesia Note [facility] Anesthesia Note Normal [facility] BASIC METABOLIC PANELon 05-10 Anion gap [Moles/Vol] 8 mmol/L Normal 3-13 [facility] Comment on above: Performed By: #### L [id number], [id number] ####Marble Installer: DEANNE CARSON ([id number])[facility] [place] ([facility])[address] Calcium [Mass/Vol] 6.9 mg/dL Low 8.4-10.2 [facility] Comment on above: Performed By: #### L AB15, [id number] ####Marble Installer: DEANNE CARSON ([id number])[facility] [place] ([facility])[address] Chloride [Moles/Vol] 100 mmol/L Normal 98-107 [facility] Comment on above: Performed By: #### L AB15, [id number] ####Marble Installer: DEANNE CARSON ([id number])[facility] [place] ([facility])[address] CO2 [Moles/Vol] 22 mmol/L Normal 22-29 [facility] Comment on above: Performed By: #### L AB15, [id number] ####Marble Installer: DEANNE CARSON ([id number])[facility] [place] ([facility])[address] Creatinine [Mass/Vol] 0.55 mg/dL Low 0.72-1.25 [facility] Comment on above: Performed By: #### L AB15, [id number] ####Marble Installer: DEANNE CARSON ([id number])[facility] [place] ([facility])[address] GLOMERULAR FILTRATION RATE ML/MIN/1.73 SQ M.PREDICTED >90.0 Normal >60.0 [facility] Comment on above: Result Comment: Calc ulation based on the Chronic Kidney Disease Epidemiology Collaboration (CKD-EPI) equation refit without adjustment for race Performed By: #### L AB15, [id number] ####Marble Installer: DEANNE CARSON ([id number])[facility] (SBHLAB)[address] Glucose [Mass/Vol] 194 mg/dL High 74-100 [facility] Comment on above: Performed By: #### L AB15, [id number] ####Marble Installer: DEANNE CARSON ([id number])[facility] (SBHLAB)[address] Potassium [Moles/Vol] 3.0 mmol/L Low 3.5-5.1 [facility] Comment on above: Result Comment: [facility] potassium values may be up to 0.5 mmol/L lower than serum values. Performed By: #### L AB15, [id number] ####Marble Installer: DEANNE CARSON ([id number])[facility] (SBHLAB)[address] Sodium [Moles/Vol] 130 mmol/L Low 136-145 [facility] Comment on above: Performed By: #### L AB15, [id number] ####Marble Installer: DEANNE CARSON ([id number])[facility] (SBHLAB)[address] Urea nitrogen [Mass/Vol] 15 mg/dL Normal 8-21 [facility] Comment on above: Performed By: #### L AB15, [id number] ####Marble Installer: DEANNE CARSON ([id number])[facility] BLOOD TYPE AND SCREEN GELon 05-23-2024 ABO GROUPING A Normal [facility] Comment on above: Performed By: #### L [id number] ####Marble Installer: DEANNE CARSON ([id number])[facility] ([facility])[address] RH TYPE IN BLOOD Positive Normal [facility] Comment on above: Performed By: #### L [id number] ####Marble Installer: DEANNE CARSON ([id number])[facility] ([facility])[address] Bacteria identified Cx Nom ( U)Ordered By: Hallie Escalera on 05-23-2024 Interpretation and review of laboratory results Normal [facility] Basic metabolic 1998 panelon 05-23-2024 Anion gap [Moles/Vol] 8 mmol/L 3 - 13 mmol/L [facility] Calcium [Mass/Vol] 6.9 mg/dL Low 8.4 - 10. 2 mg/dL [facility] Chloride [Moles/Vol] 100 mmol/L 98 - 10 7 mmol/L [facility] CO2 [Moles/Vol] 22 mmol/L 22 - 29 mmol/L [facility] Creatinine [Mass/Vol] 0.55 mg/dL Low 0.72 - 1.25 mg/dL [facility] GFR/1.73 sq M.predicted (S/P/Bld) [Vol rate/Area] - PINF [facility] Glucose [Mass/Vol] 194 mg/dL High 74 - 100 mg/dL [facility] Interpretation and review of laboratory results Abnormal [facility] Potassium [Moles/Vol] 3 mmol/L Low 3.5 - 5.1 mmol/L [facility] Sodium [Moles/Vol] 130 mmol/L Low 136 - 145 mmol/L [facility] Urea nitrogen [Mass/Vol] 15 mg/dL 8 - 21 mg/d L [facility] Blood type and Crossmatch dwain josel (Bld)on 05-23-2024 ABO group Nom (Bld) A [facility] Blood group antibody screen GEL Ql Negative [facility] D Ag Ql (RBC) Positive [facility] Healt h [facility] CBC W Auto Differential pane l (Bld)Ordered By: Serge Navarro on 05-23-2024 Erythrocyte distribution width (RBC) [Ratio] 13.7 % 11.5 - 15.0 % [facility] Hematocrit (Bld) [Volume fraction] 22.9 % Low 40.0 - 52.0 % [facility] Hemoglobin (Bld) [Mass/Vol] 7.6 g/dL Low 13.0 - 18.0 g/dL [facility] MCH (RBC) [Entitic mass] 26 pg 26. 0 - 34.0 pg [facility] MCHC (RBC) [Mass/Vol] 33.2 % 30.5 - 36.0 % [facility] MCV (RBC) [Entitic vol] 78.4 fL 77.0 - 99.0 fL [facility] Platelet mean volume (Bld) [Entitic vol] 9.6 fL 9.0 - 12.7 fL [facility] Platelets (Bld) [#/Vol] 137 10*3/uL Low 140 - 440 10*3/uL [facility] RBC (Bld) [#/Vol] 2.92 10*6/uL Low 4.40 - 5.9 0 10*6/uL [facility] WBC (Bld) [#/Vol] 6.4 10*3/uL 3.6 - 10.7 10*3/uL [facility] CBC WITH AUTO DIFFERENTIALon 05-23-2024 Erythrocyte distribution width (RBC) [Ratio] 13.7 % Normal 11.5-15.0 [facility] Comment on above: Performed By: #### L [id number], [id number] ####Marble Installer: DEANNE CARSON ([id number])[facility] ([facility])[address] [place] [address] Hematocrit (Bld) [Volume fraction] 22.9 % Low 40.0-52.0 [facility] Comment on above: Performed By: #### L [id number], [id number] ####Marble Installer: DEANNE CARSON ([phone])[facility] ([facility])[address] [place] [address] Hemoglobin (Bld) [Mass/Vol] 7.6 g/dL Low 13.0-18.0 [facility] Comment on above: Performed By: #### L [id number], [id number] ####Marble Installer: DEANNE CARSON ([id number])[facility] ([facility])[address] [place] [address] MCH (RBC) [Entitic mass] 26.0 pg Normal 26.0-34.0 [facility] Comment on above: Performed By: #### L [id number], [id number] ####Marble Installer: DEANNE CARSON ([id number])[facility] (HLAB)[address] MCHC 33.2 % Normal 30.5-36.0 [facility] Comment on above: Performed By: #### L [id number], [id number] ####Marble Installer: DEANNE CARSON ([id number])[facility] (SBHLAB)[address] MCV (RBC) [Entitic vol] 78.4 fL Normal 77.0-99.0 [facility] Comment on above: Performed By: #### L [id number], [id number] ####Marble Installer: DEANNE CARSON ([id number])[facility] (SBHLAB)[address] Platelet mean volume (Bld) [Entitic vol] 9.6 fL Normal 9.0-12.7 [facility] Comment on above: Performed By: #### L [id number], [id number] ####Marble Installer: DEANNE CARSON ([id number])[facility] SYSTEM[facility] [place] (SB[facility])[address] Platelets (Bld) [#/Vol] 137 10*3/uL Low 140-440 [facility] Comment on above: Performed By: #### L [id number], [id number] ####Marble Installer: DEANNE CARSON ([id number])[facility] (SB[facility]AB)[address] RBC (Bld) [#/Vol] 2.92 10*6/uL Low 4.40-5.90 [facility] Comment on above: Performed By: #### L [id number], [id number] ####Marble Installer: DEANNE CARSON ([id number])[facility] (SB[facility]AB)[address] WBC (Bld) [#/Vol] 6.4 10*3/uL Normal 3.6-10.7 [facility] Comment on above: Performed By: #### L [id number], [id number] ####Marble Installer: DEANNE CARSON ([id number])[facility] (SBHLAB)[address] [place] [address] CULTURE ANAEROBICon 05-24-[address] [facility] Comment on above: Performed By: #### L [id number] ####Marble Installer: KANDY VILLALOBOS ([id number])[facility] ([facility])[address] [place] [address] CULTURE, AEROBIC BACTERIA WI TH GRAM STAINon 05-23-2024 CULTURE, AEROBIC BACTERIA WITH GRAM STAIN Normal [facility] Comment on above: Performed By: #### L [id number] ####Marble Installer: KANDY VILLALOBOS ([id number])[facility] ([facility])[address] [place] [address] HEPARIN-INDUCED PLATELET AB, REFL RIGOBERTO UNFRAC HEP (BKR QUEST)on 05-23-2024 [facility] HEPARIN INDUCED PLATELET ANTIBODY Negative Normal Negative [facility] Comment on above: Result Comment: This test is approximately 95% sensitive fordetecting antibodies to the Platelet Factor 4/HeparinComplex (PF4/Heparin). Although the result ofthis patient's sample is negative, a smallpercentage of patients may still be positiveby the Serotonin Release Assay (RIGOBERTO), possiblydue to other target antigens involved in thisreaction such as Interleukin-8 or Neutrophil-Activating Peptide-2 (NAP-2). A clinical riskassessment score may provide additional guidancein deciding whether additional testing is ofvalue (J Thromb Haemost 2008;6:1304-12). Performed By: #### L [id number] ####[facility] (AMDBEAKER)[address] [place], [place] QUEST PATIENT O.D. 0.082 Normal [facility] Comment on above: Result Comment: ____ ! O.D.units ! Result !! ! !! <=0.300 ! Negative !! >0.300 to <=0.500 ! Weak Positive !! >0.500 ! Positive !! ! !For additional information, please refer [email or web address](This link is being provided for informational/educational purposes only.)Test Performed by [facility],[address] [place] [address]Mjkasjglana Marcelo M.D., Ph.D., Director of [phone], [place] [id number] Performed By: #### L [id number] ####[facility] (AMDBEAKER)[address] [place] [address] [facility] LACTIC ACID WITH REFLEXon Lactate [Moles/Vol] 0.9 mmol/L Normal 0.5-2.2 [facility] Comment on above: Performed By: #### L [id number] ####Marble Installer: DEANNE CARSON ([id number])[facility] ([facility])[address] [place] [address] Laboratory - Chemistry and C hemistry - challengeon 05-23-2024 Glucose [Mass/Vol] 323 mg/dL High 70 - 100 mg/dL [facility] Glucose [Mass/Vol] 166 mg/dL High 70 - 100 mg/dL [facility] Glucose [Mass/Vol] 266 mg/dL High 70 - 100 mg/dL [facility] Glucose [Mass/Vol] 228 mg/dL High 70 - 100 mg/dL [facility] Glucose [Mass/Vol] 231 mg/dL High 70 - 100 mg/dL [facility] Glucose [Mass/Vol] 264 mg/dL High 70 - 100 mg/dL [facility] Magnesium [Mass/Vol] 1.9 mg/dL 1.6 - 2 .6 mg/dL [facility] Lactate [Moles/Vol] 0.9 mmol/L 0.5 - 2. 2 mmol/L [facility] Glucose [Mass/Vol] 192 mg/dL High 70 - 100 mg/dL [facility] Laboratory - Coagulationon 0 05-23-2024 aPTT Coag (PPP) [Time] 30 s 20.0 - 30.5 s [facility] INR Coag (PPP) [Relative time] 1.2 {INR} High 0.9 - 1.1 [facility] PT Coag (Bld) [Time] 13.7 s High 9.0 - 12.0 s [facility] Laboratory - Hematology and Cell countson 05-23-2024 Band form neutrophils (Bld) [#/Vol] 0.4 10*3/uL High NINF - 0.0 10*3/uL [facility] Band form neutrophils/100 WBC (Bld) 6 % High NINF - 0 % [facility] Lymphocytes (Bld) [#/Vol] 0.2 10*3/uL Low 1.0 - 4.3 10*3/uL [facility] Lymphocytes/100 WBC (Bld) 3 % Low 15 - 45 % [facility] Monocytes (Bld) [#/Vol] 0.1 10*3/uL 0.0 - 0.9 10*3/uL [facility] Monocytes/100 WBC (Bld) 1 % Low 5 - 13 % [facility] Neutrophils (Bld) [#/Vol] 6.1 10*3/uL 1.8 - 7.5 10*3/uL [facility] RBC morphology finding Nom (Bld) Normal [facility] Segmented neutrophils/100 WBC (Bld) 90 % High 38 - 82 % [facility] Laboratory - Microbiology an d Antimicrobial susceptibilityOrdered By: Hallie Escalera on 05-23-2024 Bacteria identified Cx Nom (U) Normal urogenital donna present [facility] MAGNESIUMon 05-23-2024 Magnesium [Mass/Vol] 1.9 mg/dL Normal 1.6-2.6 [facility] Comment on above: Result Comment: ISSAC R COMMENTS:Higher values can be expected in females during menses. Performed By: #### L AB15, [id number] ####Marble Installer: DEANNE CARSON ([id number])[facility] (SBHLAB)[address] MANUAL DIFFERENTIAL (CELLAVI NAVEED)on 05-23-2024 BAND NEUTROPHILS TOTAL PER COUNTED LEUKOCYTES BY MANUAL COUNT 6 [facility] Comment on above: Performed By: #### L [id number], [id number] ####Marble Installer: DEANNE CARSON ([id number])[facility] (SBHLAB)[address] [place] [address] [place] BANDS (10*3/UL) IN BLOOD-CELLAVISION 0.4 10*3/uL High <=0.0 [facility] Comment on above: Performed By: #### L [id number], [id number] ####Marble Installer: DEANNE CARSON ([id number])[facility] (SBHLAB)[address] BASOPHILS TOTAL PER COUNTED LEUKOCYTES BY MANUAL COUNT [facility] Comment on above: Performed By: #### L [id number], [id number] ####Marble Installer: DEANNE CARSON ([id number])[facility] [place] (SB[facility])[address] [place] [address] [place] BLASTS TOTAL PER COUNTED LEUKOCYTES BY MANUAL COUNT [facility] Comment on above: Performed By: #### L [id number], [id number] ####Marble Installer: DEANNE CARSON ([id number])[facility] [place] ([facility])[address] [place] [address] [place] EOSINOPHILS TOTAL PER COUNTED LEUKOCYTES BY MANUAL COUNT [facility] Comment on above: Performed By: #### L [id number], [id number] ####Marble Installer: DEANNE CARSON ([id number])[facility] [place] ([facility])[address] [place] [address] [place] LYMPHOCYTES (10*3/UL) IN BLOOD-CELLAVISION 0.2 10*3/uL Low 1.0-4.3 [facility] Comment on above: Performed By: #### L [id number], [id number] ####Marble Installer: DEANNE CARSON ([id number])[facility] (SB[facility])[address] [place] [address] [place] LYMPHOCYTES TOTAL PER COUNTED LEUKOCYTES BY MANUAL COUNT 3 Normal [facility] Comment on above: Performed By: #### L [id number], [id number] ####Marble Installer: DEANNE CABALLEROKACIEDANA ([id number])[facility] ([facility])[address] [place] [address] [place] LYMPHOCYTES/100 LEUKOCYTES IN BLOOD-CELLAVISION 3 % Low 15-45 [facility] Comment on above: Performed By: #### L [id number], [id number] ####Marble Installer: DEANNE PARADADANA ([id number])[facility] (SB[facility])[address] [place] [address] [place] METAMYELOCYTES TOTAL PER COUNTED LEUKOCYTES BY MANUAL COUNT Normal [facility] Comment on above: Performed By: #### L [id number], [id number] ####Marble Installer: DEANNE PARADADANA ([id number])[facility] ([facility])[address] [place] [address] [place] MONOCYTES (10*3/UL) IN BLOOD-CELLAVISION 0.1 10*3/uL Normal 0.0-0.9 [facility] Comment on above: Performed By: #### L [id number], [id number] ####Marble Installer: DEANNE CARSON ([id number])[facility] ([facility])[address] [place] [address] [place] MONOCYTES TOTAL PER COUNTED LEUKOCYTES BY MANUAL COUNT 1 Normal [facility] Comment on above: Performed By: #### L [id number], [id number] ####Marble Installer: DEANNE CARSON ([id number])[facility] [place] ([facility])[address] [place] [address] [place] MONOCYTES/100 LEUKOCYTES IN BLOOD-LYNETTE 1 % Low 5-13 [facility] Comment on above: Performed By: #### L [id number], [id number] ####Marble Installer: DEANNE CARSON ([id number])[facility] ([facility])[address] [place] [address] [place] MYELOCYTES COUNTED BY MANUAL COUNT [facility] Comment on above: Performed By: #### L [id number], [id number] ####Marble Installer: DEANNE CARSON ([id number])[facility] ([facility])[address] [place] [address] [place] NEUTROPHILS BAND FORM/100 LEUKOCYTES IN BLOOD-CELLAVISI 6 % High <=0 [facility] Comment on above: Performed By: #### L [id number], [id number] ####Marble Installer: DEANNE CARSON ([id number])[facility] ([facility])[address] NEUTROPHILS TOTAL PER COUNTED LEUKOCYTES BY MANUAL COUNT 91 [facility] Comment on above: Performed By: #### L [id number], [id number] ####Marble Installer: DEANNE CARSON ([id number])[facility] [place] ([facility])[address] [place] [address] [place] PROMYELOCYTES TOTAL PER COUNTED LEUKOCYTES BY MANUAL COUNT [facility] Comment on above: Performed By: #### L [id number], [id number] ####Marble Installer: DEANNE CARSON ([id number])[facility] [place] ([facility])[address] [place] [address] [place] RBC MORPHOLOGY IN BLOOD Normal Normal [facility] Comment on above: Performed By: #### L [id number], [id number] ####Marble Installer: DEANNE CARSON ([id number])[facility] [place] ([facility])[address] [place] [address] [place] SEGMENTED NEUTROPHILS (10*3/UL) IN BLOOD-CELLAVISION 6.1 10*3/uL Normal 1.8-7.5 [facility] Comment on above: Performed By: #### L [id number], [id number] ####Marble Installer: DEANNE CARSON ([id number])[facility] ([facility])[address] SEGMENTED NEUTROPHILS/100 LEUKOCYTES-CE 90 % High 38-82 [facility] Comment on above: Performed By: #### L [id number], [id number] ####Marble Installer: DEANNE CARSON ([id number])[facility] (SBHLAB)[address] UNCLASSIFIED CELLS TOTAL PER COUNTED LEUKOCYTES BY MANUAL COUNT [facility] Comment on above: Performed By: #### L [id number], [id number] ####Marble Installer: DEANNE CARSON ([id number])[facility] ([facility])[address] VARIANT LYMPHOCYTES TOTAL PER COUNTED LEUKOCYTES BY MANUAL COUNT Normal [facility] Comment on above: Performed By: #### L [id number], [id number] ####Marble Installer: DEANNE CARSON ([id number])[facility] ([facility])[address] Magnesium [Mass/Vol]on 05-23 Interpretation and review of laboratory results Normal [facility] No Panel Informationon 05-23 Interpretation and review of laboratory results Abnormal [facility] Interpretation and review of laboratory results Abnormal [facility] Interpretation and review of laboratory results Abnormal [facility] Interpretation and review of laboratory results Abnormal [facility] Interpretation and review of laboratory results Abnormal [facility] Interpretation and review of laboratory results Abnormal [facility] Interpretation and review of laboratory results Normal [facility] Bands Manual 6 [facility] Interpretation and review of laboratory results Abnormal [facility] Lymphocytes Manual 3 [facility] Monocytes Manual 1 [facility] alth Neutrophils Manual 91 [facility] Interpretation and review of laboratory results Abnormal [facility] Interpretation and review of laboratory results Abnormal [facility] Nursing Noteon 05-23-2024 Nursing Note Report called to 2E RN. Pt entered for transport (tele order states yes to transport without monitor) in stable condition with all belongings. Normal [facility] Nursing Note BGT checked prior to arrival to PACU - treated I the OR - CONSOLE MANAGER instruction to wait to check. Normal [facility] Nursing Note This SAWYER HELPER signed into glucose monitor for OR BGT check while patient in OR during surgery. Normal [facility] Op Noteon 05-23-2024 Op Note Normal [facility] PROTIME AND APTTon aPTT Coag (Bld) [Time] 30.0 s Normal 20.0-30.5 [facility] Comment on above: Performed By: #### L [id number] ####Marble Installer: DEANNE CARSON ([id number])[facility] ([facility])[address] [place] [address] INR Coag (PPP) [Relative time] 1.2 {INR} High 0.9-1.1 [facility] Comment on above: Result Comment: Catracho mmended Anticoagulant Therapy: SEE BELOW----- INR of 2.0 - 3.0 : - Prophylaxis of Venous Thrombosis (high-risk surgery) - Treatment of Venous Thrombosis - Treatment of Pulmonary Embolism (Includes tissue heart valves, Acute Myocardial Infarction to prevent systemic embolism, Valvular Heart Disease, and Atrial Fibrillation)----- INR of 2.5 - 3.5 : - Mechanical Prosthetic Valves (high risk) - If oral anticoagulant therapy is used to prevent Myocardial Infarction Performed By: #### L [id number] ####Marble Installer: DEANNE CARSON ([id number])[facility] ([facility])[address] [place] [address] PT Coag (PPP) [Time] 13.7 s High 9.0-12.0 [facility] Comment on above: Performed By: #### L [id number] ####Marble Installer: DEANNE CARSON ([id number])[facility] ([facility])[address] [place] [address] Progress Noteon 05-23-2024 Progress Note Normal [facility] Progress Note Normal [facility] [id number] 05-22-2024 [id number] Normal [facility] BASIC METABOLIC PANELon 03- Anion gap [Moles/Vol] 9 mmol/L Normal - [facility] Comment on above: Performed By: #### L AB15, [id number], [id number], [id number] ####Marble Installer: DEANNE CARSON ([id number])[facility] SYSTEMGalo LO[facility]ZAVETERANS HEALTH AD[facility] (SBHLAB)[address] Calcium [Mass/Vol] 6.8 mg/dL Low 8.4-10.2 [facility] Comment on above: Performed By: #### L AB15, [id number], [id number], [id number] ####Marble Installer: DEANNE CARSON ([id number])[facility] [place] (SB[facility]AB)[address] Chloride [Moles/Vol] 99 mmol/L Normal 98-107 [facility] Comment on above: Performed By: #### L AB15, QGC986, [id number], [id number] ####Marble Installer: DEANNE CARSON ([id number])[facility] [place] (SB[facility])[address] CO2 [Moles/Vol] 21 mmol/L Low 22-29 [facility] Comment on above: Performed By: #### L AB15, BIQ378, [id number], [id number] ####Marble Installer: DEANNE CARSON ([id number])[facility] (SB[facility])[address] Creatinine [Mass/Vol] 0.70 mg/dL Low 0.72-1.25 [facility] Comment on above: Performed By: #### L AB15, UYA744, [id number], TQB772 ####Marble Installer: DEANNE CARSON ([id number])[facility] (SBHLAB)[address] GLOMERULAR FILTRATION RATE ML/MIN/1.73 SQ M.PREDICTED >90.0 Normal >60.0 [facility] Comment on above: Result Comment: Calc ulation based on the Chronic Kidney Disease Epidemiology Collaboration (CKD-EPI) equation refit without adjustment for race Performed By: #### L AB15, [id number], [id number], [id number] ####Marble Installer: DEANNE CARSON ([id number])[facility] SYSTEMGalo LOAZIAVETERANS HEALTH ADMINISTR[facility])[address] Glucose [Mass/Vol] 162 mg/dL High 74-100 [facility] Comment on above: Performed By: #### L AB15, [id number], [id number], OPN464 ####Marble Installer: DEANNE CARSON ([id number])[facility] ([facility])[address] Potassium [Moles/Vol] 3.4 mmol/L Low 3.5-5.1 [facility] Comment on above: Result Comment: [facility] potassium values may be up to 0.5 mmol/L lower than serum values. Performed By: #### L AB15, ARW915, YBE0518, UDP386 ####Marble Installer: DEANNE CARSON ([id number])[facility] ([facility])[address] Sodium [Moles/Vol] 129 mmol/L Low 136-145 [facility] Comment on above: Performed By: #### L AB15, [id number], PBA1628, TAJ614 ####Marble Installer: DEANNE CARSON ([id number])[facility] ([facility])[address] Urea nitrogen [Mass/Vol] 22 mg/dL High 8-21 [facility] Comment on above: Performed By: #### L AB15, LNT316, JML1539, RYZ745 ####Marble Installer: DEANNE PARADADANA ([id number])[facility] ([facility])[address] Anion gap [Moles/Vol] 14 mmol/L High 3-13 [facility] Comment on above: Performed By: #### L AB113, EMA902, LAB15, [id number] ####Marble Installer: DEANNE CARSON ([id number])[facility] [place] ([facility])[address] Calcium [Mass/Vol] 7.0 mg/dL Low 8.4-10.2 [facility] Comment on above: Performed By: #### L AB113, RDK396, LAB15, [id number] ####Marble Installer: DEANNE CARSON ([id number])[facility] [place] ([facility])[address] Chloride [Moles/Vol] 95 mmol/L Low 98-107 [facility] Comment on above: Performed By: #### L AB113, ESW455, LAB15, YZN3724 ####Marble Installer: DEANNE CARSON ([id number])[facility]A [facility]BPRESBYTER[facility]ITALN (SBHLAB)[address] CO2 [Moles/Vol] 20 mmol/L Low 22-29 [facility] Comment on above: Performed By: #### L AB113, NTN188, LAB15, [id number] ####Marble Installer: DEANNE CARSON ([id number])[facility] (SBHLAB)[address] Creatinine [Mass/Vol] 0.81 mg/dL Normal 0.72-1.25 [facility] Comment on above: Performed By: #### L AB113, ZWV632, LAB15, RHA3205 ####Marble Installer: DEANNE CARSON ([id number])[facility]BPRESBYTER[facility]ITALN (SBHLAB)[address] GLOMERULAR FILTRATION RATE ML/MIN/1.73 SQ M.PREDICTED >90.0 Normal >60.0 [facility] Comment on above: Result Comment: Calc ulation based on the Chronic Kidney Disease Epidemiology Collaboration (CKD-EPI) equation refit without adjustment for race Performed By: #### L AB113, LCA294, LAB15, [id number] ####Marble Installer: DEANNE CARSON ([id number])[facility] [place] (HL[facility])[address] [place] [address] [place] Glucose [Mass/Vol] 104 mg/dL High 74-100 [facility] Comment on above: Performed By: #### L AB113, UMG630, LAB15, [id number] ####Marble Installer: DEANNE CARSON ([phone])[facility] SYSTEMGalo LOAIZAPRESBYTERIAN HOSPITALLeigh (SBHLAB)[address] [place] [address] [place] Potassium [Moles/Vol] 3.2 mmol/L Low 3.5-5.1 [facility] Comment on above: Result Comment: [facility] potassium values may be up to 0.5 mmol/L lower than serum values. Performed By: #### L AB113, ITZ982, LAB15, XTY2787 ####Marble Installer: DEANNE CARSON ([id number])[facility] SYSTEM[facility] [place] (SBHLAB)[address] [place] [address] [place] Sodium [Moles/Vol] 129 mmol/L Low 136-145 [facility] Comment on above: Performed By: #### L AB113, GIU780, LAB15, PCF0991 ####Marble Installer: DEANNE CARSON ([id number])[facility] SYSTEMGalo LOAIZAVETERANS HEALTH ADMINISTRATION [facility] (SBHLAB)[address] [place] [address] [place] Urea nitrogen [Mass/Vol] 27 mg/dL High 8-21 [facility] Comment on above: Performed By: #### L AB113, ZXA360, LAB15, VRR1859 ####Marble Installer: DEANNE CARSON ([id number])[facility] SYSTEMGalo LOAIZAVETERANS HEALTH ADMINISTR[facility] (SBHLAB)[address] [place] [address] [place] Anion gap [Moles/Vol] 18 mmol/L High 3-13 [facility] Comment on above: Performed By: #### L AB15, [id number], JCN273, TLP156 ####Marble Installer: DEANNE CARSON ([id number])[facility] SYSTEMGalo LOAIZAVETERANS HEALTH ADMINISTR[facility] (SB[facility]AB)[address] [place] [address] [place] Calcium [Mass/Vol] 7.0 mg/dL Low 8.4-10.2 [facility] Comment on above: Performed By: #### L AB15, [id number], [id number], [id number] ####[place] Installer: DEANNE CARSON ([phone])[facility] SYSTEM[facility]alo [facility]AV[facility] [place] (SBHLAB)[address] Chloride [Moles/Vol] 94 mmol/L Low 98-107 [facility] Comment on above: Performed By: #### L AB15, [id number], [id number], [id number] ####Marble Installer: DEANNE CARSON ([id number])[facility] (SBHLAB)[address] CO2 [Moles/Vol] 18 mmol/L Low 22-29 [facility] Comment on above: Performed By: #### L AB15, [id number], [id number], [id number] ####Marble Installer: DEANNE CARSON ([id number])[facility] (SBHLAB)[address] Creatinine [Mass/Vol] 0.92 mg/dL Normal 0.72-1.25 [facility] Comment on above: Performed By: #### L AB15, [id number], [id number], [id number] ####Marble Installer: DEANNE CARSON ([id number])[facility] GLOMERULAR FILTRATION RATE ML/MIN/1.73 SQ M.PREDICTED >90.0 Normal >60.0 [facility] Comment on above: Result Comment: Calc ulation based on the Chronic Kidney Disease Epidemiology Collaboration (CKD-EPI) equation refit without adjustment for race Performed By: #### L AB15, [id number], [id number], [id number] ####Marble Installer: DEANNE CARSON ([id number])[facility] (SBHLAB)155 [place] [address] [place] Glucose [Mass/Vol] 146 mg/dL High 74-100 [facility] Comment on above: Performed By: #### L AB15, [id number], [id number], [id number] ####Marble Installer: DEANNE PARADADANA ([id number])[facility] (SBHLAB)155 [place] [address] [place] Potassium [Moles/Vol] 3.1 mmol/L Low 3.5-5.1 [facility] Comment on above: Result Comment: [facility] potassium values may be up to 0.5 mmol/L lower than serum values. Performed By: #### L AB15, [id number], [id number], [id number] ####Marble Installer: DEANNE CARSON ([id number])[facility] (SBHLAB)[address] Sodium [Moles/Vol] 130 mmol/L Low 136-145 [facility] Comment on above: Performed By: #### L AB15, [id number], KVL833, ZPE851 ####Marble Installer: DEANNE CABALLEROALEXANDR ([id number])[facility] ([facility]AB)[address] Urea nitrogen [Mass/Vol] 29 mg/dL High 8-21 [facility] Comment on above: Performed By: #### L AB15, [id number], [id number], [id number] ####Marble Installer: DEANNE PARADADANA ([id number])[facility] ([facility]AB)[address] BETA HYDROXYBUTYRATEon 05-22 BETA HYDROXYBUTYRATE 16.1 mg/dL High <=2.8 [facility] Comment on above: Performed By: #### L AB15, [id number], [id number], HTS454 ####Marble Installer: DEANNE PARADADANA ([id number])[facility] (SBHLAB)[address] [place] [address] [place] BETA HYDROXYBUTYRATE 19.8 mg/dL High <=2.8 [facility] Comment on above: Performed By: #### L AB113, [id number], LAB15, [id number] ####Marble Installer: DEANNE CARSON ([id number])[facility] ([facility]HLAB)[address] BETA HYDROXYBUTYRATE 32.1 mg/dL High <=2.8 [facility] Comment on above: Performed By: #### L AB15, [id number], HXW583, IKZ893 ####Marble Installer: DEANNE CARSON ([id number])[facility] (SBHLAB)[address] BLOOD GAS, VENOUSon 05-23-19 25 AMOUNT OF OXYGEN Normal [facility] Comment on above: Result Comment: ISSAC Vasquez COMMENTS:Assessment of oxygenation is best done with an arterial blood gas determination. Reference ranges for pO2, bicarbonate, and base excess are for mixed venous blood. Specimens drawn from a peripheral vein will often have higher values. Performed By: #### L AB79 ####Marble Installer: DEANNE CARSON ([id number])[facility] (SBHLAB)[address] Base excess Calc (BldV) [Moles/Vol] -1.5000 mmol/L Normal -3.0-3.0 [facility] Comment on above: Performed By: #### L AB79 ####Marble Installer: DEANNE CARSON ([id number])[facility] (SB[facility]AB)[address] CO2 [Moles/Vol] 23.5 mmol/L Normal 23.0-30.0 [facility] Comment on above: Performed By: #### L AB79 ####Marble Installer: DEANNE CARSON ([id number])[facility] (SBHLAB)[address] [place] [address] [place] HCO3 (Bld) [Moles/Vol] 22.4 mmol/L Normal 21.0-30.0 [facility] Comment on above: Performed By: #### L AB79 ####Marble Installer: DEANNE CARSON ([phone])[facility] ([facility]AB)[address] Hemoglobin (Bld) [Mass/Vol] 7.4 g/dL Low Screen only [facility] Comment on above: Performed By: #### L AB79 ####Marble Installer: DEANNE ALEJANDROCER ([id number])[facility] (SBHLAB)[address] OXYGEN (MM HG) IN VENOUS BLOOD 56.2 mm Hg Normal [facility] Comment on above: Performed By: #### L AB79 ####Marble Installer: DEANNE CABALLEROKACIEDANA ([id number])[facility] (SBHLAB)[address] OXYGEN SATURATION (%) IN VENOUS BLOOD 87.6 % Normal [facility] Comment on above: Performed By: #### L AB79 ####Marble Installer: DEANNE CARSON ([id number])[facility] (SBHLAB)[address] PCO2, CHRISTI 34.1 mm Hg Low 38.0-56.0 [facility] Comment on above: Performed By: #### L AB79 ####Marble Installer: DEANNE PARADADANA ([id number])[facility] (SBHLAB)[address] PH VENOUS 7.436 High 7.320-7.420 [facility] Comment on above: Performed By: #### L AB79 ####Marble Installer: DEANNE CABALLEROALEXANDR ([id number])[facility] (SBHLAB)[address] SOURCE OF OXYGEN Nasal Cannula (LPM) Normal [facility] Comment on above: Performed By: #### L AB79 ####Marble Installer: DEANNE PARADADANA ([id number])[facility] (SB[facility]AB)[address] AMOUNT OF OXYGEN Normal [facility] Comment on above: Result Comment: ISSAC Vasquez COMMENTS:Assessment of oxygenation is best done with an arterial blood gas determination. Reference ranges for pO2, bicarbonate, and base excess are for mixed venous blood. Specimens drawn from a peripheral vein will often have higher values. Performed By: #### L AB79 ####Marble Installer: DEANNE CARSON ([id number])[facility] [place] (SB[facility]AB)[address] [place] [address] [place] Base excess Calc (BldV) [Moles/Vol] -3.2000 mmol/L Low -3.0-3.0 [facility] Comment on above: Performed By: #### L AB79 ####Marble Installer: DEANNE CARSON ([id number])[facility] (SBHLAB)[address] [place] [address] [place] CO2 [Moles/Vol] 22.5 mmol/L Low 23.0-30.0 [facility] Comment on above: Performed By: #### L AB79 ####Marble Installer: DEANNE CARSON ([id number])[facility] (SBHLAB)[address] [place] [address] [place] HCO3 (Bld) [Moles/Vol] 21.4 mmol/L Normal 21.0-30.0 [facility] Comment on above: Performed By: #### L AB79 ####Marble Installer: DEANNE CARSON ([phone])[facility] (SBHLAB)[address] Hemoglobin (Bld) [Mass/Vol] 8.0 g/dL Low Screen only [facility] Comment on above: Performed By: #### L AB79 ####Marble Installer: DEANNE CARSON ([id number])[facility] (SBHLAB)[address] [place] [address] [place] OXYGEN (MM HG) IN VENOUS BLOOD 43.9 mm Hg Normal [facility] Comment on above: Performed By: #### L AB79 ####Marble Installer: DEANNE CARSON ([id number])[facility] (SBHLAB)[address] OXYGEN SATURATION (%) IN VENOUS BLOOD 75.6 % Normal [facility] Comment on above: Performed By: #### L AB79 ####Marble Installer: DEANNEBERENICE CARSON ([id number])[facility] (SBHLAB)[address] PCO2, CHRISTI 36.3 mm Hg Low 38.0-56.0 [facility] Comment on above: Performed By: #### L AB79 ####Marble Installer: DEANNE CARSON ([id number])[facility] (SBHLAB)[address] PH VENOUS 7.388 Normal 7.320-7.420 [facility] Comment on above: Performed By: #### L AB79 ####Marble Installer: DEANNEBERENICE CARSON ([id number])[facility] (HLAB)[address] SOURCE OF OXYGEN Nasal Cannula (LPM) Normal [facility] Comment on above: Performed By: #### L AB79 ####Marble Installer: DEANNE CARSON ([id number])[facility] ([facility] [place] [address] AMOUNT OF OXYGEN Normal [facility] Comment on above: Result Comment: ISSAC Vasquez COMMENTS:Assessment of oxygenation is best done with an arterial blood gas determination. Reference ranges for pO2, bicarbonate, and base excess are for mixed venous blood. Specimens drawn from a peripheral vein will often have higher values. Performed By: #### L AB79 ####Marble Installer: DEANNEBERENICE CARSON ([id number])[facility] (SBHLAB)[address] Base excess Calc (BldV) [Moles/Vol] -1.5000 mmol/L Normal -3.0-3.0 [facility] Comment on above: Performed By: #### L AB79 ####Marble Installer: DEANNE ALLI ([id number])[facility] (SBHLAB)[address] CO2 [Moles/Vol] 25.2 mmol/L Normal 23.0-30.0 [facility] Comment on above: Performed By: #### L AB79 ####Marble Installer: DEANNE CARSON ([id number])[facility] [place] (SBHLAB)[address] HCO3 (Bld) [Moles/Vol] 23.9 mmol/L Normal 21.0-30.0 [facility] Comment on above: Performed By: #### L AB79 ####Marble Installer: DEANNE CARSON ([id number])[facility] [place] (SB[facility]AB)[address] Hemoglobin (Bld) [Mass/Vol] 9.1 g/dL Low Screen only [facility] Comment on above: Performed By: #### L AB79 ####Marble Installer: DEANNE CARSON ([id number])[facility] [place] ([facility]AB)[address] OXYGEN (MM HG) IN VENOUS BLOOD 29.0 mm Hg Normal [facility] Comment on above: Performed By: #### L AB79 ####Marble Installer: DEANNE CARSON ([id number])[facility] (SBHLAB)[address] OXYGEN SATURATION (%) IN VENOUS BLOOD 47.9 % Normal [facility] Comment on above: Performed By: #### L AB79 ####Marble Installer: DEANNE CARSON ([id number])[facility] [place] (SBHLAB)[address] [place] [address] [place] PCO2, CHRISTI 43.4 mm Hg Normal 38.0-56.0 [facility] Comment on above: Performed By: #### L AB79 ####Marble Installer: DEANNE CARSON ([id number])[facility] [place] ([facility])[address] PH VENOUS 7.359 Normal 7.320-7.420 [facility] Comment on above: Performed By: #### L AB79 ####Marble Installer: DEANNE CARSON ([id number])[facility] [place] ([facility])[address] SOURCE OF OXYGEN Nasal Cannula (LPM) Normal [facility] Comment on above: Performed By: #### L AB79 ####Marble Installer: DEANNE CARSON ([id number])[facility] [place] (SBHLAB)[address] Basic metabolic 1998 panelon 05-22-2024 Anion gap [Moles/Vol] 9 mmol/L 3 - 13 mmol/L [facility] Calcium [Mass/Vol] 6.8 mg/dL Low 8.4 - 10. 2 mg/dL [facility] Chloride [Moles/Vol] 99 mmol/L 98 - 10 7 mmol/L [facility] CO2 [Moles/Vol] 21 mmol/L Low 22 - 29 mmol/L [facility] Creatinine [Mass/Vol] 0.7 mg/dL Low 0.72 - 1.25 mg/dL [facility] GFR/1.73 sq M.predicted (S/P/Bld) [Vol rate/Area] - PINF [facility] Glucose [Mass/Vol] 162 mg/dL High 74 - 100 mg/dL [facility] Potassium [Moles/Vol] 3.4 mmol/L Low 3.5 - 5.1 mmol/L [facility] Sodium [Moles/Vol] 129 mmol/L Low 136 - 145 mmol/L [facility] Urea nitrogen [Mass/Vol] 22 mg/dL High 8 - 21 mg/d L [facility] Anion gap [Moles/Vol] 14 mmol/L High 3 - 13 mmol/L [facility] Calcium [Mass/Vol] 7 mg/dL Low 8.4 - 10. 2 mg/dL [facility] Chloride [Moles/Vol] 95 mmol/L Low 98 - 10 7 mmol/L [facility] CO2 [Moles/Vol] 20 mmol/L Low 22 - 29 mmol/L [facility] Creatinine [Mass/Vol] 0.81 mg/dL 0.72 - 1.25 mg/dL [facility] GFR/1.73 sq M.predicted (S/P/Bld) [Vol rate/Area] - PINF [facility] Glucose [Mass/Vol] 104 mg/dL High 74 - 100 mg/dL [facility] Potassium [Moles/Vol] 3.2 mmol/L Low 3.5 - 5.1 mmol/L [facility] Sodium [Moles/Vol] 129 mmol/L Low 136 - 145 mmol/L [facility] Urea nitrogen [Mass/Vol] 27 mg/dL High 8 - 21 mg/d L [facility] Anion gap [Moles/Vol] 18 mmol/L High 3 - 13 mmol/L [facility] Calcium [Mass/Vol] 7 mg/dL Low 8.4 - 10. 2 mg/dL [facility] Chloride [Moles/Vol] 94 mmol/L Low 98 - 10 7 mmol/L [facility] CO2 [Moles/Vol] 18 mmol/L Low 22 - 29 mmol/L [facility] Creatinine [Mass/Vol] 0.92 mg/dL 0.72 - 1.25 mg/dL [facility] GFR/1.73 sq M.predicted (S/P/Bld) [Vol rate/Area] - PINF [facility] Glucose [Mass/Vol] 146 mg/dL High 74 - 100 mg/dL [facility] Potassium [Moles/Vol] 3.1 mmol/L Low 3.5 - 5.1 mmol/L [facility] Sodium [Moles/Vol] 130 mmol/L Low 136 - 145 mmol/L [facility] Urea nitrogen [Mass/Vol] 29 mg/dL High 8 - 21 mg/d L [facility] CBC W Auto Differential pane l (Bld)Ordered By: Tu Montanez on 05-22-2024 Erythrocyte distribution width (RBC) [Ratio] 13.5 % 11.5 - 15.0 % [facility] Hematocrit (Bld) [Volume fraction] 23.6 % Low 40.0 - 52.0 % [facility] Hemoglobin (Bld) [Mass/Vol] 7.9 g/dL Low 13.0 - 18.0 g/dL [facility] Interpretation and review of laboratory results Abnormal [facility] MCH (RBC) [Entitic mass] 25.8 pg Low 26. 0 - 34.0 pg [facility] MCHC (RBC) [Mass/Vol] 33.5 % 30.5 - 36.0 % [facility] MCV (RBC) [Entitic vol] 77.1 fL 77.0 - 99.0 fL [facility] Platelet mean volume (Bld) [Entitic vol] 9.9 fL 9.0 - 12.7 fL [facility] Platelets (Bld) [#/Vol] 199 10*3/uL 140 - 440 10*3/uL [facility] RBC (Bld) [#/Vol] 3.06 10*6/uL Low 4.40 - 5.9 0 10*6/uL [facility] WBC (Bld) [#/Vol] 15.2 10*3/uL High 3.6 - 10.7 10*3/uL [facility] CBC WITH AUTO DIFFERENTIALon 05-22-2024 Erythrocyte distribution width (RBC) [Ratio] 13.5 % Normal 11.5-15.0 [facility] Comment on above: Performed By: #### L [id number], [id number] ####Marble Installer: DEANNE CARSON ([id number])[facility] ([facility] [place] [address] Hematocrit (Bld) [Volume fraction] 23.6 % Low 40.0-52.0 [facility] Comment on above: Performed By: #### L [id number], [id number] ####Marble Installer: DEANNE CARSON ([id number])[facility] ([facility] [place] [address] Hemoglobin (Bld) [Mass/Vol] 7.9 g/dL Low 13.0-18.0 [facility] Comment on above: Performed By: #### L [id number], [id number] ####Marble Installer: DEANNE CARSON ([id number])[facility])[address] [place] [address] MCH (RBC) [Entitic mass] 25.8 pg Low 26.0-34.0 [facility] Comment on above: Performed By: #### L [id number], [id number] ####Marble Installer: DEANNE CARSON ([id number])[facility])[address] [place] [address] MCHC 33.5 % Normal 30.5-36.0 [facility] Comment on above: Performed By: #### L [id number], [id number] ####Marble Installer: DEANNE CARSON ([id number])[facility] [place] (SBHLAB)[address] MCV (RBC) [Entitic vol] 77.1 fL Normal 77.0-99.0 [facility] Comment on above: Performed By: #### L [id number], [id number] ####Marble Installer: DEANNE CARSON ([id number])[facility] [place] (SBHLAB)[address] Platelet mean volume (Bld) [Entitic vol] 9.9 fL Normal 9.0-12.7 [facility] Comment on above: Performed By: #### L [id number], [id number] ####Marble Installer: DEANNE CARSON ([id number])[facility] [place] ([facility])[address] Platelets (Bld) [#/Vol] 199 10*3/uL Normal 140-440 [facility] Comment on above: Performed By: #### L [id number], [id number] ####Marble Installer: DEANNE CARSON ([id number])[facility] [place] (SBHLAB)[address] RBC (Bld) [#/Vol] 3.06 10*6/uL Low 4.40-5.90 [facility] Comment on above: Performed By: #### L [id number], [id number] ####Marble Installer: DEANNE CARSON ([id number])[facility] [place] (SBHLAB)[address] WBC (Bld) [#/Vol] 15.2 10*3/uL High 3.6-10.7 [facility] Comment on above: Performed By: #### L [id number], [id number] ####Marble Installer: DEANNE CARSON ([id number])[facility] [place] (SBHLAB)[address] Consulton 03-13-2025 Consult Normal [facility] ECG 12-LEADon 05-22-2024 ECG 12-LEAD IMPRESSION: Sinus tachycardia Left axis deviation Compared to ECG 08/15/21 No significant change Electronically Signed On 05-22-2024 06:00:10 EDT by Herb Mello Normal [facility] LACTIC ACID WITH REFLEXon Lactate [Moles/Vol] 2.1 mmol/L Normal 0.5-2.2 [facility] Comment on above: Performed By: #### L [id number] ####Marble Installer: DEANNE CARSON ([id number])[facility] ([facility])[address] [place] [address] Lactate [Moles/Vol] 2.9 mmol/L High 0.5-2.2 [facility] Comment on above: Performed By: #### L [id number] ####Marble Installer: DEANNE CARSON ([id number])[facility] ([facility])[address] [place] [address] Lactate [Moles/Vol] 2.8 mmol/L High 0.5-2.2 [facility] Comment on above: Performed By: #### L [id number] ####Marble Installer: DEANNE CARSON ([id number])[facility] ([facility])[address] [place] [address] Laboratory - Chemistry and C hemistry - challengeon 05-22-2024 Glucose [Mass/Vol] 248 mg/dL High 70 - 100 mg/dL [facility] Glucose [Mass/Vol] 196 mg/dL High 70 - 100 mg/dL [facility] Glucose [Mass/Vol] 78 mg/dL 70 - 100 mg/dL [facility] Glucose [Mass/Vol] 124 mg/dL High 70 - 100 mg/dL [facility] Glucose [Mass/Vol] 174 mg/dL High 70 - 100 mg/dL [facility] Lactate [Moles/Vol] 2.1 mmol/L 0.5 - 2. 2 mmol/L [facility] Beta hydroxybutyrate [Mass/Vol] 16.1 mg/dL High NINF - 2.8 mg/dL [facility] Magnesium [Mass/Vol] 2.1 mg/dL 1.6 - 2 .6 mg/dL [facility] Glucose [Mass/Vol] 179 mg/dL High 70 - 100 mg/dL [facility] Lactate [Moles/Vol] 2.9 mmol/L High 0.5 - 2. 2 mmol/L [facility] Beta hydroxybutyrate [Mass/Vol] 19.8 mg/dL High NINF - 2.8 mg/dL [facility] Magnesium [Mass/Vol] 2.5 mg/dL 1.6 - 2 .6 mg/dL [facility] Base excess Calc (BldV) [Moles/Vol] -3.2000 mmol/L Low -3.0 - 3.0 mmol/L [facility] CO2 (BldV) [Partial pressure] 36.3 mm[Hg] Low [facility] CO2 [Moles/Vol] 22.5 mmol/L Low 23.0 - 30.0 mmol/L [facility] HCO3 (Bld) [Moles/Vol] 21.4 mmol/L 21.0 - 30.0 mmol/L [facility] Oxygen (BldV) [Partial pressure] 43.9 mm[Hg] mm Hg [facility] pH (BldV) 7.388 [pH] 7.320 - 7.420 [facility] Glucose [Mass/Vol] 136 mg/dL High 70 - 100 mg/dL [facility] Lactate [Moles/Vol] 2.8 mmol/L High 0.5 - 2. 2 mmol/L [facility] Glucose [Mass/Vol] 177 mg/dL High 70 - 100 mg/dL [facility] Base excess Calc (BldV) [Moles/Vol] -1.5000 mmol/L -3.0 - 3.0 mmol/L [facility] CO2 (BldV) [Partial pressure] 43.4 mm[Hg] [facility] CO2 [Moles/Vol] 25.2 mmol/L 23.0 - 30.0 mmol/L [facility] HCO3 (Bld) [Moles/Vol] 23.9 mmol/L 21.0 - 30.0 mmol/L [facility] Oxygen (BldV) [Partial pressure] 29 mm[Hg] mm Hg [facility] pH (BldV) 7.359 [pH] 7.320 - 7.420 [facility] Beta hydroxybutyrate [Mass/Vol] 32.1 mg/dL High NINF - 2.8 mg/dL [facility] Magnesium [Mass/Vol] 1.4 mg/dL Low 1.6 - 2 .6 mg/dL [facility] Sodium (24H U) [Mass/Vol] mmol/L mmol/L [facility] Glucose [Mass/Vol] 165 mg/dL High 70 - 100 mg/dL [facility] Laboratory - Chemistry and C hemistry - challengeOrdered By: Evelia Crow on 05-22-2024 Base excess Calc (BldV) [Moles/Vol] -1.5000 mmol/L -3.0 - 3.0 mmol/L [facility] CO2 (BldV) [Partial pressure] 34.1 mm[Hg] Low [facility] CO2 [Moles/Vol] 23.5 mmol/L 23.0 - 30.0 mmol/L [facility] HCO3 (Bld) [Moles/Vol] 22.4 mmol/L 21.0 - 30.0 mmol/L [facility] Oxygen (BldV) [Partial pressure] 56.2 mm[Hg] mm Hg [facility] pH (BldV) 7.436 [pH] High 7.320 - 7.420 [facility] - Drug toxicology on 05-22-2024 Vancomycin trough [Mass/Vol] 31 ug/mL [facility] - Hematology and Cell countsOrdered By: Evelia Crow on 05-22-2024 Hemoglobin (Bld) [Mass/Vol] 7.4 g/dL Low Screen only [facility] - Hematology and Cell countson 05-22-2024 Hemoglobin (Bld) [Mass/Vol] 8 g/dL Low Screen only [facility] Hemoglobin (Bld) [Mass/Vol] 9.1 g/dL Low Screen only [facility] MAGNESIUMon 05-22-2024 Magnesium [Mass/Vol] 2.1 mg/dL Normal 1.6-2.6 [facility] Comment on above: Result Comment: ISSAC Vasquez COMMENTS:Higher values can be expected in females during menses. Performed By: #### L AB15, [id number], [id number], [id number] ####Marble Installer: DEANNE CARSON ([id number])[facility] [place] ([facility])[address] Magnesium [Mass/Vol] 2.5 mg/dL Normal 1.6-2.6 [facility] Comment on above: Result Comment: ISSAC R COMMENTS:Higher values can be expected in females during menses. Performed By: #### L AB113, [id number], LAB15, [id number] ####Marble Installer: DEANNE CARSON ([phone])[facility] [place] ([facility])[address] Magnesium [Mass/Vol] 1.4 mg/dL Low 1.6-2.6 [facility] Comment on above: Result Comment: ISSAC R COMMENTS:Higher values can be expected in females during menses. Performed By: #### L [id number], [id number], [id number], [id number] ####[place] Installer: DEANNE CARSON ([phone])[facility] [place] ([facility])[address] MANUAL DIFFERENTIALon 2024 BAND NEUTROPHILS TOTAL PER COUNTED LEUKOCYTES BY MANUAL COUNT 22 Normal [facility] Comment on above: Performed By: #### L [id number], [id number] ####[place] Installer: DEANNE CARSON ([phone])[facility] ([facility])[address] BANDS 3.3 10*3/uL High <=0.0 [facility] [facility] Comment on above: Performed By: #### L [id number], [id number] ####Marble Installer: DEANNE CARSON ([id number])[facility] [place] ([facility] CELLS COUNTED TOTAL (#) IN BLOOD 100 Normal [facility] Comment on above: Performed By: #### L [id number], [id number] ####Marble Installer: DEANNE CARSON ([id number])[facility] ([facility] DIFFERENTIAL METHOD Manual differential performed Normal [facility] Comment on above: Performed By: #### L [id number], [id number] ####Marble Installer: DEANNE CABALLEROALEXANDR ([id number])[facility] [place] ([facility])155 [place] [address] [place] DOHLE BODY PRESENCE IN BLOOD BY LIGHT MICROSCOPY (PRESENT) Present Abnormal (none) [facility] Comment on above: Performed By: #### L [id number], [id number] ####Marble Installer: DEANNE CABALLEROALEXANDR ([id number])[facility] [place] ([facility])[address] HYPOCHROMIA (PRESENCE) IN BLOOD BY LIGHT MICROSCOPY Slight Abnormal (none) [facility] Comment on above: Performed By: #### L [id number], [id number] ####Marble Installer: DEANNE CABALLEROALEXANDR ([phone])[facility] [place] ([facility])[address] [place] [address] [place] LEUKOCYTES (10*3/UL) NUCLEATED ERYTHROCYTE ADJUST 15.2 10*3/uL High 3.6-10.7 [facility] Comment on above: Performed By: #### L [id number], [id number] ####Marble Installer: DEANNE CARSON ([id number])[facility] [place] ([facility])[address] [place] [address] [place] LYMPHOCYTES (10*3/UL) IN BLOOD BY MANUAL COUNT 0.5 10*3/uL Low 1.0-4.3 [facility] Comment on above: Performed By: #### L [id number], [id number] ####Marble Installer: DEANNE PARADADANA ([id number])[facility] [place] ([facility])[address] [place] [address] [place] LYMPHOCYTES TOTAL PER COUNTED LEUKOCYTES BY MANUAL COUNT 3 Normal [facility] Comment on above: Performed By: #### L [id number], [id number] ####Marble Installer: DEANNE CARSON ([id number])[facility] [place] ([facility])[address] [place] [address] [place] LYMPHOCYTES/100 LEUKOCYTES IN BLOOD BY MANUAL COUNT 3 % Low 15-45 [facility] Comment on above: Performed By: #### L [id number], [id number] ####Marble Installer: DEANNE CARSON ([id number])[facility] [place] (SBHLAB)155 [place] [address] [place] MICROCYTES (PRESENCE) IN BLOOD BY LIGHT MICROSCOPY Slight Abnormal (none) [facility] Comment on above: Performed By: #### L [id number], [id number] ####Marble Installer: DEANNE CARSON ([id number])[facility] [place] ([facility])[address] [place] [address] [place] MONOCYTES (10*3/UL) IN BLOOD BY MANUAL COUNT 0.5 10*3/uL Normal 0.0-0.9 [facility] Comment on above: Performed By: #### L [id number], [id number] ####Marble Installer: DEANNE CARSON ([id number])[facility] [place] ([facility])[address] [place] [address] [place] MONOCYTES TOTAL PER COUNTED LEUKOCYTES BY MANUAL COUNT 3 Normal [facility] Comment on above: Performed By: #### L [id number], [id number] ####Marble Installer: DEANNE CARSON ([id number])[facility] [place] ([facility])[address] [place] [address] [place] MONOCYTES/100 LEUKOCYTES IN BLOOD BY MANUAL COUNT 3 % Low 5-13 [facility] Comment on above: Performed By: #### L [id number], [id number] ####Marble Installer: DEANNE CARSON ([id number])[facility] [place] ([facility])[address] [place] [address] [place] MYELOCYTES (10*3/UL) IN BLOOD BY MANUAL COUNT 0.2 10*3/uL High <=0.0 [facility] Comment on above: Performed By: #### L [id number], [id number] ####Marble Installer: DEANNE CARSON ([id number])[facility] [place] ([facility])[address] [place] [address] [place] MYELOCYTES COUNTED BY MANUAL COUNT 1 Normal [facility] Comment on above: Performed By: #### L [id number], [id number] ####Marble Installer: DEANNE CARSON ([id number])[facility] [place] ([facility])[address] [place] [address] [place] MYELOCYTES/100 LEUKOCYTES IN BLOOD BY MANUAL COUNT 1 % High <=0 [facility] Comment on above: Performed By: #### L [id number], [id number] ####Marble Installer: DEANNE CARSON ([id number])[facility] [place] ([facility])[address] [place] [address] [place] NEUTROPHILS (SEGS+BANDS) (10*3/UL) BY MANUAL COUNT 14.1 10*3/uL High 1.8-7.0 [facility] Comment on above: Performed By: #### L [id number], [id number] ####Marble Installer: DEANNE CARSON ([id number])[facility] [place] ([facility])[address] [place] [address] [place] NEUTROPHILS BAND FORM/100 LEUKOCYTES IN BLOOD BY MANUAL COUNT 22 % High <=0 [facility] Comment on above: Performed By: #### L [id number], [id number] ####Marble Installer: DEANNE CARSON ([id number])[facility] [place] ([facility])[address] [place] [address] [place] NEUTROPHILS TOTAL PER COUNTED LEUKOCYTES BY MANUAL COUNT 71 Normal [facility] Comment on above: Performed By: #### L [id number], [id number] ####Marble Installer: DEANNE CARSON ([id number])[facility] [place] ([facility])[address] [place] [address] [place] PLATELET MORPHOLOGY IN BLOOD Normal [facility] Comment on above: Performed By: #### L [id number], [id number] ####Marble Installer: DEANNE CARSON ([id number])[facility] [place] ([facility])[address] [place] [address] [place] POIKILOCYTOSIS (PRESENCE) IN BLOOD BY LIGHT MICROSCOPY Slight Abnormal (none) [facility] Comment on above: Performed By: #### L [id number], [id number] ####Marble Installer: DEANNE CARSON ([id number])[facility] [place] ([facility])[address] POLYCHROMASIA IN BLOOD BY LIGHT MICROSCOPY Slight Abnormal (none) [facility] Comment on above: Performed By: #### L [id number], [id number] ####Marble Installer: DEANNE CARSON ([id number])[facility] [place] ([facility])[address] SEGEMENTED NEUTROPHILS/100 LEUKOCYTES BY MANUAL COUNT 71 % Normal 38-82 [facility] Comment on above: Performed By: #### L [id number], [id number] ####Marble Installer: DEANNE CARSON ([id number])[facility] [place] ([facility] SEGMENTED NEUTROPHILS (10*3/UL)IN BLOOD BY MANUAL COUNT 14.1 10*3/uL High 1.8-7.5 [facility] Comment on above: Performed By: #### L [id number], [id number] ####Marble Installer: DEANNE CARSON ([id number])[facility] [place] ([facility])[address] TOXIC GRANULES PRESENCE IN BLOOD BY LIGHT MICROSCOPY (PRESENT) Present Abnormal (none) [facility] Comment on above: Performed By: #### L [id number], [id number] ####Marble Installer: DEANNE CARSON ([id number])[facility] [place] ([facility])[address] [place] [address] [place] VACUOLATED NEUTROPHILS PRESENCE IN BLOOD BY LIGHT MICROSCOPY (PRESENT) Present Abnormal (none) [facility] Comment on above: Performed By: #### L [id number], [id number] ####Marble Installer: DEANNE CARSON ([id number])[facility] [place] ([facility])[address] [place] [address] [place] Magnesium [Mass/Vol]on 05-22 [facility] Manual differential performe d Ql (Bld)Ordered By: Celine Saxena on 05-22-2024 Band form neutrophils (Bld) [#/Vol] 3.3 10*3/uL High NINF - 0.0 10*3/uL [facility] Band form neutrophils/100 WBC (Bld) 22 % High NINF - 0 % [facility] Bands Manual 22 [facility] Cells Counted Total (Bld) [#] 100 {cells} [facility] Differential Method Manual differential performed [facility] Dohle body LM Ql (Bld) Present Abnormal (none) [facility] Hypochromia Ql (Bld) Slight Abnormal (none) [facility] Interpretation and review of laboratory results Abnormal [facility] Lymphocytes (Bld) [#/Vol] 0.5 10*3/uL Low 1.0 - 4.3 10*3/uL [facility] Lymphocytes Manual 3 [facility] Lymphocytes/100 WBC (Bld) 3 % Low 15 - 45 % [facility] Microcytes Ql (Bld) Slight Abnormal (none) [facility] Monocytes (Bld) [#/Vol] 0.5 10*3/uL 0.0 - 0.9 10*3/uL [facility] Monocytes Manual 3 [facility] alth Monocytes/100 WBC (Bld) 3 % Low 5 - 13 % [facility] Myelocytes (Bld) [#/Vol] 0.2 10*3/uL High KETAN F - 0.0 10*3/uL [facility] Myelocytes Manual 1 [facility] ealth Myelocytes/100 WBC (Bld) 1 % High NINF - 0 % [facility] Neutrophils (Bld) [#/Vol] 14.1 10*3/uL High 1.8 - 7.5 10*3/uL [facility] Neutrophils Manual 71 [facility] Neutrophils.vacuolated LM Ql (Bld) Present Abnormal (none) [facility] Platelet morphology finding Nom (Bld) Normal [facility] Poikilocytosis LM Ql (Bld) Slight Abnormal (none) [facility] Polychromasia LM Ql (Bld) Slight Abnormal (none) [facility] Segmented neutrophils/100 WBC (Bld) 71 % 38 - 82 % [facility] Toxic granules LM Ql (Bld) Present Abnormal (none) [facility] WBC corrected for nucl RBC (Bld) [#/Vol] 15.2 10*3/uL High 3.6 - 10.7 10*3/uL [facility] No Panel Informationon 05-22 Interpretation and review of laboratory results Abnormal [facility] Interpretation and review of laboratory results Abnormal [facility] Interpretation and review of laboratory results Normal [facility] Interpretation and review of laboratory results Abnormal [facility] Interpretation and review of laboratory results Abnormal [facility] Interpretation and review of laboratory results Normal [facility] Interpretation and review of laboratory results Abnormal [facility] Interpretation and review of laboratory results Normal [facility] Interpretation and review of laboratory results Abnormal [facility] CV EPIPHANY [facility] Interpretation and review of laboratory results Abnormal [facility] Interpretation and review of laboratory results Abnormal [facility] Interpretation and review of laboratory results Normal [facility] Interpretation and review of laboratory results Abnormal [facility] Source Of Oxygen Nasal Cannula (LPM) [facility] Interpretation and review of laboratory results Abnormal [facility] Interpretation and review of laboratory results Abnormal [facility] Interpretation and review of laboratory results Abnormal [facility] Interpretation and review of laboratory results Abnormal [facility] Source Of Oxygen Nasal Cannula (LPM) [facility] Interpretation and review of laboratory results Abnormal [facility] CREATININE, URINE 38.5 mg/dL Low 63.0 - 166 .0 mg/dL [facility] Interpretation and review of laboratory results Abnormal [facility] SODIUM, URINE, FRACTIONAL EXCRETION [facility] SODIUM, URINE, TUBULAR REABSORPTION [facility] Interpretation and review of laboratory results Abnormal [facility] No Panel InformationOrdered By: Kandy Villalobos on 05-22-2024 Pathology Review [facility] Work Phone: [facility] Work Phone: No Panel InformationOrdered By: Evelia Crow on 05-22-2024 Interpretation and review of laboratory results Abnormal [facility] Source Of Oxygen Nasal Cannula (LPM) [facility] No Panel InformationOrdered By: Herb Mello on 05-22-2024 P [place] 60 degrees [facility] Work Phone: [place] Interval 106 ms [facility] Work Phone: QRS [place] -31 degrees [facility] Work Phone: QRSD Interval 92 ms [facility] Work Phone: QT Interval 297 ms [facility] Work Phone: QTC Interval 467 ms [facility] Work Phone: T Wave [place] 82 degrees [facility] Work Phone: [facility] Work Phone: No Panel InformationOrdered By: Jreemiah Kelly on 05-22-2024 Interpretation and review of laboratory results Normal [facility] OSMOLALITY, URINE [address] [facility] 05-22-2024 Nursing Note Normal [facility] PHOSPHORUSon 05-22-2024 Phosphate [Mass/Vol] 2.6 mg/dL Normal 2.3-4.7 [facility] Comment on above: Performed By: #### L AB15, [id number], [id number], [id number] ####Marble Installer: DEANNE CARSON ([id number])[facility] ([facility])[address] [place] [address] Phosphate [Mass/Vol] 2.5 mg/dL Normal 2.3-4.7 [facility] Comment on above: Performed By: #### L AB113, [id number], LAB15, [id number] ####Marble Installer: DEANNE CARSON ([id number])[facility] [place] [address] Phosphate [Mass/Vol] 2.2 mg/dL Low 2.3-4.7 [facility] Comment on above: Performed By: #### L AB15, [id number], [id number], [id number] ####Marble Installer: DEANNE CARSON ([id number])[facility] (SBHLAB)[address] [place] [address] Phosphate [Moles/Vol]on 05-10 Phosphate [Mass/Vol] 2.6 mg/dL 2.3 - 4 .7 mg/dL [facility] Phosphate [Mass/Vol] 2.5 mg/dL 2.3 - 4 .7 mg/dL [facility] Phosphate [Mass/Vol] 2.2 mg/dL Low 2.3 - 4 .7 mg/dL [facility] Progress Noteon 05-22-2024 Progress Note Normal [facility] Progress Note Normal [facility] Progress Note Normal [facility] Progress Note Normal [facility] Progress Note Next level 05/29 -unless AUC sub/supra therapeutic DATE: 05/22/24 TIME: 9:55 AM Connie Velasquez [facility] Clinical Pharmacist Available via Secure Chat Normal [facility] Progress Note Normal [facility] Progress Note Normal [facility] Urinalysis complete panel (U )Ordered By: Christina Ruffin on 05-22-2024 Bacteria LM.HPF (Urine sed) [#/Area] Moderate Abnormal Negative /HPF [facility] Bilirubin Ql (U) Negative Negative mg/dL [facility] Clarity (U) Turbid Abnormal Clear [facility] Color (U) Yellow Lt. Yellow [facility] Epithelial cells.squamous LM.HPF (Urine sed) [#/Area] 3-5 [facility] Glucose Ql (U) 500 mg/dL Abnormal Normal (<70) [facility] Hemoglobin Ql (U) >1.0 Abnormal Negative mg/dL [facility] Interpretation and review of laboratory results Abnormal [facility] Ketones (U) [Mass/Vol] 40 mg/dL Abnormal Negative [facility] Leukocyte esterase Test strip Ql (U) Negative Negative [place]/uL [facility] Mucus LM.HPF (Urine sed) [#/Area] Few Negative /LPF [facility] Nitrite Ql (U) Negative Negative [facility] pH (U) 5.5 [pH] 5.0 - 8.0 pH [facility] Protein (U) [Mass/Vol] 50 mg/dL Abnormal Negative [facility] RBC LM.HPF (Urine sed) [#/Area] 26-50 Abnormal [facility] Specific gravity (U) [Rel density] 1.039 High 1.005 - 1.030 [facility] Urobilinogen (U) [Mass/Vol] Normal Normal (0-1) mg/dL [facility] WBC LM.HPF (Urine sed) [#/Area] 11-25 Abnormal [facility] VANCOMYCIN, AUC TIMED DOSING on 05-22-2024 VANCOMYCIN, AUC 31.0 ug/mL Normal [facility] Comment on above: Result Comment: ISSAC Vasquez COMMENTS:Please draw random level at least >2 hours after the end of the last vancomycin infusion, or 30-minutes before next infusion.Toxicity is seen at concentrations >80-100 ug/mLTherapeutic (Peak) range: 20-40Therapeutic (Trough) range: 5-10 Performed By: #### L AB39 ####Marble Installer: DEANNE CARSON ([id number])[facility] ([facility])[address] [place] [address] Vancomycin trough [Mass/Vol] on 05-22-2024 [facility] Vital signsOrdered By: Rika Crow on 05-22-2024 Oxygen saturation in Venous blood 87.6 % [facility] Vital signsOrdered By: Vianey Mello on 05-22-2024 Heart rate 148 /min bpm [facility] Work Phone: Vital signson 05-22-2024 Oxygen saturation in Venous blood 75.6 % [facility] Oxygen saturation in Venous blood 47.9 % [facility] [id number] 05-21-2024 [id number] Normal [facility] 36on 05-21-2024 36 Patient should follow up with Dr Belle for urethral stricture disease Normal [facility] Anesthesia Noteon 05-21-2024 Anesthesia Note Normal [facility] Anesthesia Note Normal [facility] BASIC METABOLIC PANELon 05-10 Anion gap [Moles/Vol] 22 mmol/L High 3-13 [facility] Comment on above: Performed By: #### L AB15, [id number] ####Marble Installer: DEANNE CARSON ([id number])[facility] [place] ([facility])[address] Calcium [Mass/Vol] 6.9 mg/dL Low 8.4-10.2 [facility] Comment on above: Performed By: #### L AB15, [id number] ####Marble Installer: DEANNE CARSON ([id number])[facility] [place] ([facility])[address] Chloride [Moles/Vol] 93 mmol/L Low 98-107 [facility] Comment on above: Performed By: #### L AB15, [id number] ####Marble Installer: DEANNE CARSON ([id number])[facility] [place] ([facility])[address] CO2 [Moles/Vol] 13 mmol/L Low 22-29 [facility] Comment on above: Performed By: #### L AB15, [id number] ####Marble Installer: DEANNE CARSON ([id number])[facility] ([facility])[address] Creatinine [Mass/Vol] 0.97 mg/dL Normal 0.72-1.25 [facility] Comment on above: Performed By: #### L AB15, [id number] ####Marble Installer: DEANNE CARSON ([id number])[facility] [place] ([facility])[address] GLOMERULAR FILTRATION RATE ML/MIN/1.73 SQ M.PREDICTED >90.0 Normal >60.0 [facility] Comment on above: Result Comment: Calc ulation based on the Chronic Kidney Disease Epidemiology Collaboration (CKD-EPI) equation refit without adjustment for race Performed By: #### L AB15, [id number] ####Marble Installer: DEANNE CARSON ([id number])[facility] (SBHLAB)[address] [place] [address] [place] Glucose [Mass/Vol] 195 mg/dL High 74-100 [facility] Comment on above: Performed By: #### L AB15, [id number] ####Marble Installer: DEANNE ALLI ([id number])[facility] [place] ([facility])[address] Potassium [Moles/Vol] 2.9 mmol/L Low 3.5-5.1 [facility] Comment on above: Result Comment: [facility] potassium values may be up to 0.5 mmol/L lower than serum values. Performed By: #### L AB15, [id number] ####Marble Installer: DEANNE ALEJANDROCER ([id number])[facility] [place] ([facility])[address] Sodium [Moles/Vol] 128 mmol/L Low 136-145 [facility] Comment on above: Performed By: #### L AB15, [id number] ####Marble Installer: DEANNE CARSON ([id number])[facility]AVETER[facility] ([facility])[address] [place] [address] [place] Urea nitrogen [Mass/Vol] 29 mg/dL High 8-21 [facility] Comment on above: Performed By: #### L AB15, [id number] ####Marble Installer: DEANNE CABALLEROALEXANDR ([id number])[facility] LO[facility]AVETER[facility] [place] ([facility])[address] [place] [address] [place] Anion gap [Moles/Vol] 22 mmol/L High 3-13 [facility] Comment on above: Performed By: #### L AB149, [id number], LAB15, LAB61, [id number], [id number] ####Marble Installer: DEANNE ALEJANDROCER ([id number])[facility] LOAIZAVETER[facility] (SBHL[facility])[address] [place] [address] [place] Calcium [Mass/Vol] 7.4 mg/dL Low 8.4-10.2 [facility] Comment on above: Performed By: #### L AB149, MLY822, LAB15, LAB61, [id number], [id number] ####Marble Installer: DEANNE CARSON ([id number])[facility] ([facility])[address] Chloride [Moles/Vol] 92 mmol/L Low 98-107 [facility] Comment on above: Performed By: #### L AB149, NML759, LAB15, LAB61, [id number], [id number] ####Marble Installer: DEANNE CARSON ([id number])[facility] ([facility])[address] CO2 [Moles/Vol] 13 mmol/L Low 22-29 [facility] Comment on above: Performed By: #### L AB149, BQV164, LAB15, LAB61, [id number], [id number] ####Marble Installer: DEANNE CARSON ([id number])[facility] (HLAB)[address] Creatinine [Mass/Vol] 1.00 mg/dL Normal 0.72-1.25 [facility] Comment on above: Performed By: #### L AB149, QZC635, LAB15, LAB61, [id number], [id number] ####Marble Installer: DEANNE CARSON ([id number])[facility] ([facility])[address] GLOMERULAR FILTRATION RATE ML/MIN/1.73 SQ M.PREDICTED >90.0 Normal >60.0 [facility] Comment on above: Result Comment: Calc ulation based on the Chronic Kidney Disease Epidemiology Collaboration (CKD-EPI) equation refit without adjustment for race Performed By: #### L AB149, JFG839, LAB15, LAB61, [id number], [id number] ####Marble Installer: DEANNE CARSON ([id number])[facility] (HLAB)[address] Glucose [Mass/Vol] 210 mg/dL High 74-100 [facility] Comment on above: Performed By: #### L AB149, JAP600, LAB15, LAB61, [id number], [id number] ####Marble Installer: DEANNE CARSON ([id number])[facility] LOAIZAVETER[facility] ([facility])[address] Potassium [Moles/Vol] 3.1 mmol/L Low 3.5-5.1 [facility] Comment on above: Result Comment: [facility] potassium values may be up to 0.5 mmol/L lower than serum values. Performed By: #### L AB149, QLF927, LAB15, LAB61, [id number], JKY1078 ####Marble Installer: DEANNE CARSNO ([id number])[facility] ([facility])[address] [place] [address] Sodium [Moles/Vol] 127 mmol/L Low 136-145 [facility] Comment on above: Performed By: #### L AB149, RXE721, LAB15, LAB61, [id number], [id number] ####Marble Installer: DEANNE CARSON ([id number])[facility] ([facility])[address] [place] [address] [place] Urea nitrogen [Mass/Vol] 31 mg/dL High 8-21 [facility] Comment on above: Performed By: #### L AB149, [id number], LAB15, LAB61, [id number], [id number] ####Marble Installer: DEANNE CARSON ([id number])[facility] ([facility])[address] [place] [address] [place] BETA HYDROXYBUTYRATEon 05-21 BETA HYDROXYBUTYRATE 65.3 mg/dL High <=2.8 [facility] Comment on above: Performed By: #### L AB149, [id number], LAB15, LAB61, [id number], [id number] ####Marble Installer: DEANNE CARSON ([id number])[facility] (SBHLAB)[address] BETA HYDROXYBUTYRATE 115.1 mg/dL High <=2.8 [facility] Comment on above: Performed By: #### L [id number], [id number] ####Marble Installer: DEANNE CARSON ([id number])[facility] SYSTEM[facility] (SBAB)[address] [place] [address] BLOOD CULTUREon 05-21-2024 Bacteria identified Cx Nom (Bld) Normal [facility] Comment on above: Performed By: #### L [id number] ####Marble Installer: KANDY VILLALOBOS ([id number])[facility] (SACLAB)[address] [place] [address] Bacteria identified Cx Nom (Bld) Normal [facility] Comment on above: Performed By: #### L [id number] ####Marble Installer: KANDY VILLALOBOS ([id number])[facility] ([facility])[address] [place] [address] BLOOD GAS, VENOUSon 05-22-19 25 AMOUNT OF OXYGEN Normal [facility] Comment on above: Result Comment: ISSAC Vasquez COMMENTS:Assessment of oxygenation is best done with an arterial blood gas determination. Reference ranges for pO2, bicarbonate, and base excess are for mixed venous blood. Specimens drawn from a peripheral vein will often have higher values. Performed By: #### L AB79 ####Marble Installer: DEANNE CARSON ([phone])[facility] SYSTEM[facility] [place] (HLAB)[address] [place] [address] Base excess Calc (BldV) [Moles/Vol] -9.4000 mmol/L Low -3.0-3.0 [facility] Comment on above: Performed By: #### L AB79 ####Marble Installer: DEANNE CARSON ([id number])[facility] (SBHLAB)[address] [place] [address] CO2 [Moles/Vol] 17.7 mmol/L Low 23.0-30.0 [facility] Comment on above: Performed By: #### L AB79 ####Marble Installer: DEANNE CARSON ([id number])[facility] (SBHLAB)[address] [place] [address] HCO3 (Bld) [Moles/Vol] 16.5 mmol/L Low 21.0-30.0 [facility] Comment on above: Performed By: #### L AB79 ####Marble Installer: DEANNE CARSON ([id number])[facility] SYSTEMA [facility] (SBHLAB)[address] Hemoglobin (Bld) [Mass/Vol] 10.3 g/dL Low Screen only [facility] Comment on above: Performed By: #### L AB79 ####Marble Installer: DEANNE CARSON ([id number])[facility] SYSTEMA [facility]ITAL[facility] (SBHLAB)[address] OXYGEN (MM HG) IN VENOUS BLOOD 27.4 mm Hg Normal [facility] Comment on above: Performed By: #### L AB79 ####Marble Installer: DEANNE CARSON ([id number])[facility] ([facility] OXYGEN SATURATION (%) IN VENOUS BLOOD 39.9 % Normal [facility] Comment on above: Performed By: #### L AB79 ####Marble Installer: DEANNE CARSON ([id number])[facility] ([facility])[address] PCO2, CHRISTI 36.1 mm Hg Low 38.0-56.0 [facility] Comment on above: Performed By: #### L AB79 ####Marble Installer: DEANNE CARSON ([id number])[facility] ([facility])[address] PH VENOUS 7.279 Low 7.320-7.420 [facility] Comment on above: Performed By: #### L AB79 ####Marble Installer: DEANNE CARSON ([phone])[facility] ([facility])[address] SOURCE OF OXYGEN Nasal Cannula (LPM) Normal [facility] Comment on above: Performed By: #### L AB79 ####Marble Installer: DEANNE CARSON ([id number])[facility] (SBHLAB)[address] [place] [address] Basic metabolic 1998 panelon 05-21-2024 Anion gap [Moles/Vol] 22 mmol/L High 3 - 13 mmol/L [facility] Calcium [Mass/Vol] 7.4 mg/dL Low 8.4 - 10. 2 mg/dL [facility] Chloride [Moles/Vol] 92 mmol/L Low 98 - 10 7 mmol/L [facility] CO2 [Moles/Vol] 13 mmol/L Low 22 - 29 mmol/L [facility] Creatinine [Mass/Vol] 1 mg/dL 0.72 - 1.25 mg/dL [facility] GFR/1.73 sq M.predicted (S/P/Bld) [Vol rate/Area] - PINF [facility] Glucose [Mass/Vol] 210 mg/dL High 74 - 100 mg/dL [facility] Interpretation and review of laboratory results Abnormal [facility] Potassium [Moles/Vol] 3.1 mmol/L Low 3.5 - 5.1 mmol/L [facility] Sodium [Moles/Vol] 127 mmol/L Low 136 - 145 mmol/L [facility] Urea nitrogen [Mass/Vol] 31 mg/dL High 8 - 21 mg/d L [facility] Anion gap [Moles/Vol] 22 mmol/L High 3 - 13 mmol/L [facility] Calcium [Mass/Vol] 6.9 mg/dL Low 8.4 - 10. 2 mg/dL [facility] Chloride [Moles/Vol] 93 mmol/L Low 98 - 10 7 mmol/L [facility] CO2 [Moles/Vol] 13 mmol/L Low 22 - 29 mmol/L [facility] Creatinine [Mass/Vol] 0.97 mg/dL 0.72 - 1.25 mg/dL [facility] GFR/1.73 sq M.predicted (S/P/Bld) [Vol rate/Area] - PINF [facility] Glucose [Mass/Vol] 195 mg/dL High 74 - 100 mg/dL [facility] Interpretation and review of laboratory results Abnormal [facility] Potassium [Moles/Vol] 2.9 mmol/L Low 3.5 - 5.1 mmol/L [facility] Sodium [Moles/Vol] 128 mmol/L Low 136 - 145 mmol/L [facility] Urea nitrogen [Mass/Vol] 29 mg/dL High 8 - 21 mg/d L [facility] C-REACTIVE PROTEINon 025 CRP [Mass/Vol] 242.3 mg/L High <5.0 [facility] Comment on above: Performed By: #### L [id number], [id number], LAB15, LAB61, [id number], [id number] ####Marble Installer: DEANNE CARSON ([id number])[facility] (SBHLAB)[address] [place] [address] CBC W Auto Differential pane l (Bld)on 05-21-2024 Erythrocyte distribution width (RBC) [Ratio] 13.4 % 11.5 - 15.0 % [facility] Hematocrit (Bld) [Volume fraction] 27.4 % Low 40.0 - 52.0 % [facility] Hemoglobin (Bld) [Mass/Vol] 9 g/dL Low 13.0 - 18.0 g/dL [facility] Interpretation and review of laboratory results Abnormal [facility] MCH (RBC) [Entitic mass] 26 pg 26. 0 - 34.0 pg [facility] MCHC (RBC) [Mass/Vol] 32.8 % 30.5 - 36.0 % [facility] MCV (RBC) [Entitic vol] 79.2 fL 77.0 - 99.0 fL [facility] Platelet mean volume (Bld) [Entitic vol] 9.7 fL 9.0 - 12.7 fL [facility] Platelets (Bld) [#/Vol] 195 10*3/uL 140 - 440 10*3/uL [facility] RBC (Bld) [#/Vol] 3.46 10*6/uL Low 4.40 - 5.9 0 10*6/uL [facility] WBC (Bld) [#/Vol] 8 10*3/uL 3.6 - 10.7 10*3/uL [facility] CBC W Auto Differential pane l (Bld)Ordered By: Ford Cabrera on 05-21-2024 Erythrocyte distribution width (RBC) [Ratio] 13.5 % 11.5 - 15.0 % [facility] Hematocrit (Bld) [Volume fraction] 34.6 % Low 40.0 - 52.0 % [facility] Hemoglobin (Bld) [Mass/Vol] 11.9 g/dL Low 13.0 - 18.0 g/dL [facility] Interpretation and review of laboratory results Abnormal [facility] MCH (RBC) [Entitic mass] 26.1 pg 26. 0 - 34.0 pg [facility] MCHC (RBC) [Mass/Vol] 34.4 % 30.5 - 36.0 % [facility] MCV (RBC) [Entitic vol] 75.9 fL Low 77.0 - 99.0 fL [facility] Platelet mean volume (Bld) [Entitic vol] 10.2 fL 9.0 - 12.7 fL [facility] Platelets (Bld) [#/Vol] 390 10*3/uL 140 - 440 10*3/uL [facility] RBC (Bld) [#/Vol] 4.56 10*6/uL 4.40 - 5.9 0 10*6/uL [facility] WBC (Bld) [#/Vol] 31.7 10*3/uL Critically high 3.6 - 1 0.7 10*3/uL [facility] CBC WITH AUTO DIFFERENTIALon 05-21-2024 Erythrocyte distribution width (RBC) [Ratio] 13.4 % Normal 11.5-15.0 [facility] Comment on above: Performed By: #### L [id number], [id number] ####Marble Installer: DEANNE CARSON ([id number])[facility] ([facility])[address] [place] [address] Hematocrit (Bld) [Volume fraction] 27.4 % Low 40.0-52.0 [facility] Comment on above: Performed By: #### L [id number], [id number] ####Marble Installer: DEANNE CARSON ([id number])[facility] ([facility])[address] Hemoglobin (Bld) [Mass/Vol] 9.0 g/dL Low 13.0-18.0 [facility] Comment on above: Performed By: #### L [id number], [id number] ####Marble Installer: DEANNE CARSON ([id number])[facility] [place] (SBHLAB)[address] MCH (RBC) [Entitic mass] 26.0 pg Normal 26.0-34.0 [facility] Comment on above: Performed By: #### L [id number], [id number] ####Marble Installer: DEANNE CARSON ([id number])[facility] SYSTEMGalo LOAIZAPRESBYTERIAN HOSPITALN (SBHLAB)[address] MCHC 32.8 % Normal 30.5-36.0 [facility] Comment on above: Performed By: #### L [id number], [id number] ####Marble Installer: DEANNE CARSON ([id number])[facility] SYSTEMG[facility]ZAPRESBYTERIAN HOSPITALN (SBHLAB)[address] MCV (RBC) [Entitic vol] 79.2 fL Normal 77.0-99.0 [facility] Comment on above: Performed By: #### L [id number], [id number] ####Marble Installer: DEANNE CARSON ([id number])[facility] SYSTEMG[facility] LO[facility]ZAPRESBYTERIAN HOSPITALN (SBHLAB)[address] Platelet mean volume (Bld) [Entitic vol] 9.7 fL Normal 9.0-12.7 [facility] Comment on above: Performed By: #### L [id number], [id number] ####Marble Installer: DEANNE CARSON ([id number])[facility] SYSTEM[facility]ZAPRESBYTERIAN HOSPITALN (SBHLAB)[address] Platelets (Bld) [#/Vol] 195 10*3/uL Normal 140-440 [facility] Comment on above: Performed By: #### L [id number], [id number] ####Marble Installer: DEANNE CARSON ([id number])[facility] SYSTEM[facility]APRES[facility]TER[facility] HOSPITALN (SBHLAB)[address] RBC (Bld) [#/Vol] 3.46 10*6/uL Low 4.40-5.90 [facility] Comment on above: Performed By: #### L [id number], [id number] ####Marble Installer: DEANNE CARSON ([id number])[facility] [place] (SBHLAB)[address] [place] [address] WBC (Bld) [#/Vol] 8.0 10*3/uL Normal 3.6-10.7 [facility] Comment on above: Performed By: #### L [id number], [id number] ####Marble Installer: DEANNE CARSON ([id number])[facility] [place] (SBHLAB)[address] [place] [address] Erythrocyte distribution width (RBC) [Ratio] 13.5 % Normal 11.5-15.0 [facility] Comment on above: Performed By: #### L [id number], [id number] ####Marble Installer: DEANNE CARSON ([id number])[facility] [place] (SBHLAB)[address] [place] [address]#### [id number] ####Marble Installer: KANDY VILLALOBOS ([id number])[facility] (SACLAB)[address] [place] [address] Hematocrit (Bld) [Volume fraction] 34.6 % Low 40.0-52.0 [facility] Comment on above: Performed By: #### L [id number], [id number] ####Marble Installer: DEANNE CARSON ([id number])[facility] [place] (SBHLAB)[address] [place] [address]#### [id number] ####Marble Installer: KANDY VILLALOBOS ([id number])[facility] (SACLAB)[address] [place] [address] Hemoglobin (Bld) [Mass/Vol] 11.9 g/dL Low 13.0-18.0 [facility] Comment on above: Performed By: #### L [id number], [id number] ####Marble Installer: DEANNE CARSON ([id number])[facility] [place] (SBHLAB)[address]#### [id number] ####Marble Installer: KANDY VILLALOBOS ([id number])[facility] ([facility])[address] [place] [address] MCH (RBC) [Entitic mass] 26.1 pg Normal 26.0-34.0 [facility] Comment on above: Performed By: #### L [id number], [id number] ####Marble Installer: DEANNE CARSON ([id number])[facility] SYSTEM[facility] [place] (SBHLAB)[address] [place] [address]#### [id number] ####Marble Installer: KANDY VILLALOBOS ([id number])[facility] ([facility])[address] [place] [address] MCHC 34.4 % Normal 30.5-36.0 [facility] Comment on above: Performed By: #### Kyler [id number], [id number] ####Marble Installer: DEANNE CARSON ([id number])[facility] SYSTEM[facility] [place] (SBHLAB)[address] [place] [address]#### [id number] ####Marble Installer: KANDY VILLALOBOS ([id number])[facility] ([facility])[address] [place] [address] MCV (RBC) [Entitic vol] 75.9 fL Low 77.0-99.0 [facility] Comment on above: Performed By: #### Kyler [id number], [id number] ####Marble Installer: DEANNE CARSON ([id number])[facility] SYSTEMGalo LOAIZAVETERANS HEALTH AD[facility] (SBHLAB)[address] [place] [address]#### [id number] ####Marble Installer: KANDY VILLLAOBOS ([id number])[facility] ([facility])[address] [place] [address] Platelet mean volume (Bld) [Entitic vol] 10.2 fL Normal 9.0-12.7 [facility] Comment on above: Performed By: #### L [id number], [id number] ####Marble Installer: DEANNE CARSON ([id number])[facility] [place] (SBHLAB)[address] [place] [address]#### [id number] ####Marble Installer: KANDY VILLALOBOS ([phone])[facility] (SACLAB)[address] [place] [address] Platelets (Bld) [#/Vol] 390 10*3/uL Normal 140-440 [facility] Comment on above: Performed By: #### L [id number], [id number] ####Marble Installer: DEANNE CARSON ([id number])[facility] [place] (SBHLAB)[address] [place] [address]#### [id number] ####Marble Installer: KANDY VILLALOBOS ([id number])[facility] ([facility])[address] [place] [address] RBC (Bld) [#/Vol] 4.56 10*6/uL Normal 4.40-5.90 [facility] Comment on above: Performed By: #### L [id number], [id number] ####Marble Installer: DEANNE CARSON ([id number])[facility] BARBPRESBYTERIAN HOSPITALN (SBHLAB)[address] [place] [address]#### [id number] ####Marble Installer: KANDY VILLALOBOS ([phone])[facility] (SACLAB)[address] [place] [address] WBC (Bld) [#/Vol] 31.7 10*3/uL Critically high 3.6-10.7 [facility] Comment on above: Performed By: #### L [id number], [id number] ####Marble Installer: DEANNE CARSON ([id number])[facility] BARBVETERANS [facility] (SBHLAB)[address] [place] [address]#### [id number] ####Marble Installer: KANDY VILLALOBOS ([id number])[facility] (SACLAB)[address] [place] [address] COMPLETE URINALYSISon 2024 BACTERIA (#/HPF) IN URINE Moderate Abnormal Negative [facility] Comment on above: Performed By: #### L [id number] ####Marble Installer: KANDY VILLALOBOS ([id number])[facility] (SACLAB)[address] [place] [address]#### [id number] ####Marble Installer: DEANNE CARSON ([id number])[facility] (SBAB)[address] [place] [address] BILIRUBIN, TOTAL PRESENCE IN URINE Negative Normal Negative [facility] Comment on above: Performed By: #### L [id number] ####Marble Installer: KANDY VILLALOBOS ([id number])[facility] ([facility])[address] [place] [address]#### [id number] ####Marble Installer: DEANNE CARSON ([id number])[facility] (SBAB)[address] [place] [address] Clarity (U) Turbid Abnormal Clear [facility] Comment on above: Performed By: #### L [id number] ####Marble Installer: KANDY VILLALOBOS ([id number])[facility] ([facility])[address] [place] [address]#### [id number] ####Marble Installer: DEANNE CARSON ([id number])[facility] ([facility])[address] [place] [address] Color (U) Yellow Normal Lt. Yellow [facility] Comment on above: Performed By: #### L [id number] ####Marble Installer: KANDY VILLALOBOS ([id number])[facility] ([facility])[address] [place] [address]#### [id number] ####Marble Installer: DEANNE CARSON ([id number])[facility] ([facility])[address] [place] [address] Glucose (U) [Mass/Vol] 500 mg/dL Abnormal Normal (<70) [facility] Comment on above: Performed By: #### L [id number] ####Marble Installer: KANDY VILLALOBOS ([id number])[facility] (SACLAB)[address] [place] [address]#### [id number] ####Marble Installer: DEANNE CARSON ([id number])[facility] (SBHLAB)[address] HEMOGLOBIN PRESENCE IN URINE >1.0 Abnormal Negative [facility] Comment on above: Performed By: #### L [id number] ####Marble Installer: KANDY VILLALOBOS ([id number])[facility] (SACLAB)[address] [place] [address]#### [id number] ####Marble Installer: DEANNE CARSON ([id number])[facility] (SBHLAB)[address] [place] [address] Ketones Ql (U) 40 mg/dL Abnormal Negative [facility] Comment on above: Performed By: #### L [id number] ####Marble Installer: KANDY VILLALOBOS ([id number])[facility] (SACLAB)[address] [place] [address]#### [id number] ####Marble Installer: DEANNE CARSON ([id number])[facility] (SBHLAB)[address] [place] [address] LEUKOCYTE ESTERASE PRESENCE IN URINE BY TEST STRIP Negative Normal Negative [facility] Comment on above: Performed By: #### L [id number] ####Marble Installer: KANDY VILLAOLBOS ([id number])[facility] (SACLAB)[address] [place] [address]#### [id number] ####Marble Installer: DEANNE CARSON ([id number])[facility] (SBHLAB)[address] MUCUS (#/LPF) IN URINE SEDIMENT Few Normal Negative [facility] Comment on above: Performed By: #### L [id number] ####Marble Installer: KANDY VILLALOBOS ([id number])[facility] (SACLAB)[address] [place] [address]#### [id number] ####Marble Installer: DEANNE CARSON ([id number])[facility] SYSTEM[facility] LOAIZAYARELIS ([facility])[address] [place] [address] NITRITE PRESENCE IN URINE Negative Normal Negative [facility] Comment on above: Performed By: #### L [id number] ####Marble Installer: KANDY VILLALOBOS ([id number])[facility] ([facility])[address] [place] [address]#### [id number] ####Marble Installer: DEANNE CARSON ([id number])[facility] SYSTEMGalo [facility]ENTERJOHNNY (SBAB)[address] [place] [address] pH (U) 5.5 [pH] Normal 5.0-8.0 [facility] Comment on above: Performed By: #### L [id number] ####Marble Installer: KANDY VILLALOBOS ([id number])[facility] ([facility])[address] [place] [address]#### [id number] ####Marble Installer: DEANNE CARSON ([id number])[facility]OSPITALJOHNNY ([facility])[address] [place] [address] Protein (U) [Mass/Vol] 50 mg/dL Abnormal Negative [facility] Comment on above: Performed By: #### L [id number] ####Marble Installer: KANDY VILLALOBOS ([id number])[facility] ([facility])[address] [place] [address]#### [id number] ####Marble Installer: DEANNE CARSON ([id number])[facility] ([facility])[address] [place] [address] RBC (#/HPF) IN URINE SEDIMENT 26-50 Abnormal 0-2 [facility] Comment on above: Performed By: #### L [id number] ####Marble Installer: KANDY VILLALOBOS ([id number])[facility] ([facility])[address] [place] [address]#### [id number] ####Marble Installer: DEANNE CARSON ([id number])[facility] BARBPRESBYTERIAN HOSPITALLeigh (SBHLAB)[address] [place] [address] Specific gravity (U) [Rel density] 1.039 High 1.005-1.030 [facility] Comment on above: Performed By: #### L [id number] ####Marble Installer: KANDY VILLALOBOS ([id number])[facility] (SACLAB)[address] [place] [address]#### [id number] ####Marble Installer: DEANNE CARSON ([id number])[facility] (SBHLAB)[address] [place] [address] SQUAMOUS EPITHELIAL CELLS (#/HPF) IN URINE SEDIMENT 3-5 Normal 3-5 [facility] Comment on above: Performed By: #### L [id number] ####Marble Installer: KANDY VILLALOBOS ([id number])[facility] (SACLAB)[address] [place] [address]#### [id number] ####Marble Installer: DEANNE CARSON ([id number])[facility] (SBHLAB)[address] [place] [address] UROBILINOGEN (MG/DL) IN URINE Normal Normal Normal (0-1) [facility] Comment on above: Performed By: #### L [id number] ####Marble Installer: KANDY VILLALOBOS ([id number])[facility] (SACLAB)[address] [place] [address]#### [id number] ####Marble Installer: DEANNE CARSON ([id number])[facility] (SBHLAB)[address] [place] [address] WBC (LEUKOCYTE) (#/HPF) IN URINE SEDIMENT 11-25 Abnormal 0-5 [facility] Comment on above: Performed By: #### L [id number] ####Marble Installer: KANDY VILLALOBOS ([id number])[facility] (SACLAB)[address] [place] [address]#### [id number] ####Marble Installer: DEANNE CARSON ([id number])[facility] [place] (SBHLAB)[address] COMPREHENSIVE METABOLIC PANE Prasad 05-21-2024 Albumin [Mass/Vol] 1.4 g/dL Low 3.5-5.0 [facility] Comment on above: Performed By: #### L AB17, [id number] ####Marble Installer: DEANNE CARSON ([id number])[facility]BPRESBYTERIAN HOSPITALN (SBHLAB)[address] ALP [Catalytic activity/Vol] 180 U/L High 40-150 [facility] Comment on above: Performed By: #### L AB17, [id number] ####Marble Installer: DEANNE CARSON ([id number])[facility] ([facility])[address] ALT [Catalytic activity/Vol] U/L Normal <40 [facility] Comment on above: Performed By: #### L AB17, [id number] ####[place] Installer: DEANNE CARSON ([id number])[facility] ([facility])[address] Anion gap [Moles/Vol] 34 mmol/L Critically high 3-13 [facility] Comment on above: Performed By: #### L AB17, [id number] ####[place] Installer: DEANNE CARSON ([id number])[facility] AST [Catalytic activity/Vol] 21 U/L Normal <34 [facility] Comment on above: Performed By: #### L AB17, [id number] ####[place] Installer: DEANNE CARSON ([id number])[facility] ([facility])[address] Bilirubin [Mass/Vol] 0.5 mg/dL Normal <1.2 [facility] Comment on above: Performed By: #### L AB17, [id number] ####[place] Installer: DEANNE CARSON ([id number])[facility] (SBHLAB)[address] Calcium [Mass/Vol] 8.0 mg/dL Low 8.4-10.2 [facility] Comment on above: Performed By: #### L AB17, [id number] ####[place] Installer: DEANNE CARSON ([phone])[facility] [place] (SB[facility])[address] Chloride [Moles/Vol] 78 mmol/L Low 98-107 [facility] Comment on above: Performed By: #### L AB17, [id number] ####[place] Installer: DEANNE CARSON ([phone])[facility] [place] ([facility])[address] CO2 [Moles/Vol] 10 mmol/L Low 22-29 [facility] Comment on above: Performed By: #### L AB17, [id number] ####[place] Installer: DEANNE CARSON ([phone])[facility] (SBHLAB)[address] Creatinine [Mass/Vol] 1.35 mg/dL High 0.72-1.25 [facility] Comment on above: Performed By: #### L AB17, [id number] ####Marble Installer: DEANNE CARSON ([id number])[facility] (SBHLAB)155 [place] [address] [place] GLOMERULAR FILTRATION RATE ML/MIN/1.73 SQ M.PREDICTED 66.0 mL/min/1.73m*2 Normal >60.0 [facility] Comment on above: Result Comment: Calc ulation based on the Chronic Kidney Disease Epidemiology Collaboration (CKD-EPI) equation refit without adjustment for race Performed By: #### L AB17, [id number] ####Marble Installer: DEANNE CARSON ([id number])[facility] (SBHLAB)[address] [place] [address] [place] Glucose [Mass/Vol] 441 mg/dL High 74-100 [facility] Comment on above: Performed By: #### L AB17, [id number] ####Marble Installer: DEANNE CARSON ([id number])[facility] (SBHLAB)[address] Potassium [Moles/Vol] 3.8 mmol/L Normal 3.5-5.1 [facility] Comment on above: Result Comment: [facility] potassium values may be up to 0.5 mmol/L lower than serum values. Performed By: #### L AB17, [id number] ####Marble Installer: DEANNE CARSON ([id number])[facility] Protein [Mass/Vol] 7.5 g/dL Normal 6.4-8.3 [facility] Comment on above: Performed By: #### L AB17, [id number] ####Marble Installer: DEANNE CARSON ([id number])[facility] (SBHLAB)[address] Sodium [Moles/Vol] 122 mmol/L Low 136-145 [facility] Comment on above: Performed By: #### L AB17, [id number] ####Marble Installer: DEANNE CARSON ([id number])[facility] Urea nitrogen [Mass/Vol] 32 mg/dL High 8-21 [facility] Comment on above: Performed By: #### L AB17, [id number] ####Marble Installer: DEANNE CARSON ([id number])[facility] (HLAB)[address] [place] [address] [place] CORTISOLon 05-21-2024 CORTISOL 34.9 ug/dL High 3.7-19.4 [facility] Comment on above: Result Comment: ISSAC Vasquez COMMENTS:Before 10am 4.5-22.7 ug/dLAfter 5pm 1.7-14.1 ug/dL Performed By: #### L AB149, [id number], LAB15, LAB61, [id number], [id number] ####Marble Installer: DEANNE CARSON ([id number])[facility] (SBHLAB)[address] [place] [address] CT ABDOMEN PELVIS W CONTRAST on 05-21-2024 CT ABDOMEN PELVIS W CONTRAST Normal [facility] CT Abdomen and Pelvis W cont rast Batsheva 05-21-2024 [facility] Radiology Study observation (narrative) [facility] CT Abdomen and Pelvis W cont rast IVOrdered By: Charly Barajas on 05-21-2024 [facility] Work Phone: CULTURE ANAEROBICon 05-22-19 C[facility]URE [facility]OBIC [facility] Comment on above: Performed By: #### L [id number] ####Marble Installer: KANDY VILLALOBOS ([phone])[facility] ([facility])[address] [place] [address] CULTURE ANAEROBIC Normal [facility] Comment on above: Performed By: #### L AB233 ####Marble Installer: KANDY VILLALOBOS ([id number])[facility])[address] [place] [address] CULTURE ANAEROBIC Normal [facility] Comment on above: Performed By: #### L AB233 ####Marble Installer: KANDY VILLALOBOS ([id number])[facility])[address] [place] [address] CULTURE ANAEROBIC Normal [facility] Comment on above: Performed By: #### L AB233 ####Marble Installer: KANDY VILLALOBOS ([id number])[facility])[address] [place] [address] CULTURE ANAEROBIC Normal [facility] Comment on above: Performed By: #### L AB233 ####Marble Installer: KANDY VILLALOBOS ([id number])[facility])[address] [place] [address] CULTURE, AEROBIC BACTERIA WI TH GRAM STAINon 05-21-2024 CULTURE, AEROBIC BACTERIA WITH GRAM STAIN Normal [facility] Comment on above: Performed By: #### L [id number] ####Marble Installer: KANDY VILLALOBOS ([phone])[facility])[address] [place] [address] CULTURE, AEROBIC BACTERIA WITH GRAM STAIN Normal [facility] Comment on above: Performed By: #### L AB897 ####Marble Installer: KANDY VILLALOBOS ([id number])[facility])[address] [place] [address] CULTURE, AEROBIC BACTERIA WITH GRAM STAIN Normal [facility] Comment on above: Performed By: #### L AB897 ####Marble Installer: KANDY VILLALOBOS ([phone])[facility])[address] [place] [address] CULTURE, AEROBIC BACTERIA WITH GRAM STAIN Normal [facility] Comment on above: Performed By: #### L AB897 ####Marble Installer: KANDY VILLALOBOS ([id number])[facility] ([facility])[address] [place] [address] CULTURE, AEROBIC BACTERIA WITH GRAM STAIN Normal [facility] Comment on above: Performed By: #### L AB897 ####Marble Installer: KANDY VILLALOBOS ([phone])[facility])[address] [place] [address] Comprehensive metabolic 1998 panelOrdered By: Araceli Razo on 05-21-2024 Albumin [Mass/Vol] 1.4 g/dL Low 3.5 - 5.0 g/dL [facility] ALP [Catalytic activity/Vol] 180 U/L High 40 - 150 U/L [facility] ALT [Catalytic activity/Vol] U/L NINF - 40 U/L [facility] Anion gap [Moles/Vol] 34 mmol/L Critically high 3 - 13 mmol/L [facility] AST [Catalytic activity/Vol] 21 U/L NINF - 34 U/L [facility] Bilirubin [Mass/Vol] 0.5 mg/dL NINF - 1.2 mg/dL [facility] Calcium [Mass/Vol] 8 mg/dL Low 8.4 - 10. 2 mg/dL [facility] Chloride [Moles/Vol] 78 mmol/L Low 98 - 10 7 mmol/L [facility] CO2 [Moles/Vol] 10 mmol/L Low 22 - 29 mmol/L [facility] Creatinine [Mass/Vol] 1.35 mg/dL High 0.72 - 1.25 mg/dL [facility] GFR/1.73 sq M.predicted (S/P/Bld) [Vol rate/Area] 66 mL/min - PINF [facility] Glucose [Mass/Vol] 441 mg/dL High 74 - 100 mg/dL [facility] Interpretation and review of laboratory results Abnormal [facility] Potassium [Moles/Vol] 3.8 mmol/L 3.5 - 5.1 mmol/L [facility] Protein [Mass/Vol] 7.5 g/dL 6.4 - 8.3 g/dL [facility] Sodium [Moles/Vol] 122 mmol/L Low 136 - 145 mmol/L [facility] Urea nitrogen [Mass/Vol] 32 mg/dL High 8 - 21 mg/d L [facility] Consulton 05-21-2024 Consult Normal [facility] Consult Normal [facility] ED Provider Noteon ED Provider Note Normal [facility] HEMOGLOBIN A1Con 05-21-2024 Glucose [Mass/Vol] 315 mg/dL Normal [facility] Comment on above: Result Comment: ISSAC Vasquez COMMENTS:HbA1c values of 5.7-6.4 percent indicate an increased risk for developing diabetes mellitus. HbA1c values greater than or equal to 6.5 percent are diagnostic of diabetes mellitus. For diagnosis of diabetes in individuals without unequivocal hyperglycemia, results should be confirmed by repeat testing. Performed By: #### L AB90 ####Marble Installer: DEANNE CARSON ([id number])[facility] (SBAB)[address] [place] [address] HEMOGLOBIN A1C 12.6 %HbA1C High <5.7 [facility] Comment on above: Result Comment: Norm al less than 5.7%Prediabetes 5.7% to 6.4%Diabetes 6.5% or higher--HgbA1C levels may not be accurate in patients who have renal disease, received recent blood transfusions, are anemic, or who have dyshemoglobinemia. Performed By: #### L AB90 ####Marble Installer: DEANNE CARSON ([id number])[facility] SYSTEM[facility]alo LOAIZAVETERANS [facility] (SBHLAB)[address] LACTIC ACID WITH REFLEXon Lactate [Moles/Vol] 3.1 mmol/L High 0.5-2.2 [facility] Comment on above: Performed By: #### L [id number] ####Marble Installer: DEANNE CARSON ([id number])[facility] (SBAB)[address] Lactate [Moles/Vol] 4.3 mmol/L Critically high 0.5-2.2 [facility] Comment on above: Performed By: #### L [id number] ####Marble Installer: DEANNE CARSON ([id number])[facility] (SBAB)[address] [place] [address] Laboratory - Chemistry and C hemistry - challengeon 05-21-2024 Average glucose Estimated from glycated hemoglobin (Bld) [Mass/Vol] 315 mg/dL [facility] Magnesium [Mass/Vol] 1.4 mg/dL Low 1.6 - 2 .6 mg/dL [facility] Cortisol [Mass/Vol] 34.9 ug/dL High 3.7 - 19 .4 ug/dL [facility] Procalcitonin [Mass/Vol] 1.48 ng/mL High KETAN F - 0.07 ng/mL [facility] TSH Qn 1.14 m[IU]/L [facility] Osmolality [Osmolality] 285 mosm/kg [facility] Beta hydroxybutyrate [Mass/Vol] 65.3 mg/dL High NINF - 2.8 mg/dL [facility] CRP [Mass/Vol] 242.3 mg/L High NINF - 5.0 mg/L [facility] Lactate [Moles/Vol] 3.1 mmol/L High 0.5 - 2. 2 mmol/L [facility] Base excess Calc (BldV) [Moles/Vol] -9.4000 mmol/L Low -3.0 - 3.0 mmol/L [facility] CO2 (BldV) [Partial pressure] 36.1 mm[Hg] Low [facility] CO2 [Moles/Vol] 17.7 mmol/L Low 23.0 - 30.0 mmol/L [facility] HCO3 (Bld) [Moles/Vol] 16.5 mmol/L Low 21.0 - 30.0 mmol/L [facility] Oxygen (BldV) [Partial pressure] 27.4 mm[Hg] mm Hg [facility] pH (BldV) 7.279 [pH] Low 7.320 - 7.420 [facility] Beta hydroxybutyrate [Mass/Vol] 115.1 mg/dL High NINF - 2.8 mg/dL [facility] Glucose [Mass/Vol] 270 mg/dL High 70 - 100 mg/dL [facility] Glucose [Mass/Vol] 378 mg/dL High 70 - 100 mg/dL [facility] Glucose [Mass/Vol] 370 mg/dL High 70 - 100 mg/dL [facility] Lactate [Moles/Vol] 4.3 mmol/L Critically high 0.5 - 2.2 mmol/L [facility] Laboratory - Hematology and Cell countson 05-21-2024 HbA1c (Bld) [Mass fraction] 12.6 % High NINF [facility] Band form neutrophils (Bld) [#/Vol] 1 10*3/uL High NINF - 0.0 10*3/uL [facility] Band form neutrophils/100 WBC (Bld) 12 % High NINF - 0 % [facility] [place] cells LM Ql (Bld) Moderate Abnormal (none) [facility] Lymphocytes (Bld) [#/Vol] 0.6 10*3/uL Low 1.0 - 4.3 10*3/uL [facility] Lymphocytes/100 WBC (Bld) 8 % Low 15 - 45 % [facility] Monocytes (Bld) [#/Vol] 0.2 10*3/uL 0.0 - 0.9 10*3/uL [facility] Monocytes/100 WBC (Bld) 2 % Low 5 - 13 % [facility] Myelocytes (Bld) [#/Vol] 0.1 10*3/uL High KETAN F - 0.0 10*3/uL [facility] Myelocytes/100 WBC (Bld) 1 % High NINF - 0 % [facility] Neutrophils (Bld) [#/Vol] 7.1 10*3/uL 1.8 - 7.5 10*3/uL [facility] Neutrophils.vacuolated LM Ql (Bld) Present Abnormal (none) [facility] Poikilocytosis LM Ql (Bld) Slight Abnormal (none) [facility] Polychromasia LM Ql (Bld) Slight Abnormal (none) [facility] RBC morphology finding Nom (Bld) abnormal [facility] Segmented neutrophils/100 WBC (Bld) 77 % 38 - 82 % [facility] Toxic granules LM Ql (Bld) Present Abnormal (none) [facility] Hemoglobin (Bld) [Mass/Vol] 10.3 g/dL Low Screen only [facility] MAGNESIUMon 05-21-2024 Magnesium [Mass/Vol] 1.4 mg/dL Low 1.6-2.6 [facility] Comment on above: Result Comment: ISSAC Vasquez COMMENTS:Higher values can be expected in females during menses. Performed By: #### L AB15, [id number] ####Marble Installer: DEANNE CARSON ([id number])[facility] ([facility])[address] [place] [address] MANUAL DIFFERENTIALon 2024 BAND NEUTROPHILS TOTAL PER COUNTED LEUKOCYTES BY MANUAL COUNT 21 Normal [facility] Comment on above: Performed By: #### L [id number], [id number] ####Marble Installer: DEANNE CARSON ([id number])[facility] (SBHLAB)[address] [place] [address]#### [id number] ####Marble Installer: KANDY VILLALOBOS ([id number])[facility] (SACLAB)[address] [place] [address] BANDS 2.2 10*3/uL High <=0.0 [facility] Comment on above: Performed By: #### L [id number], [id number] ####Marble Installer: DEANNE CARSON ([phone])[facility] (SBHLAB)[address] [place] [address] [place]#### [id number] ####Marble Installer: KANDY VILLALOBOS ([id number])[facility] (SACLAB)[address] [place] [address] CELLS COUNTED TOTAL (#) IN BLOOD 300 Normal [facility] Comment on above: Performed By: #### L [id number], [id number] ####Marble Installer: DEANNE CARSON ([id number])[facility] [place] (SBHLAB)[address] [place] [address]#### [id number] ####Marble Installer: KANDY VILLALOBOS ([phone])[facility] ([facility])[address] [place] [address] DIFFERENTIAL METHOD Manual differential performed Normal [facility] Comment on above: Result Comment: ISSAC Vasquez COMMENTS:Slide sent for pathology review Performed By: #### L [id number], [id number] ####Marble Installer: DEANNE CARSON ([id number])[facility] [place] (SBHLAB)[address] [place] [address]#### [id number] ####Marble Installer: KANDY VILLALOBOS ([id number])[facility])[address] [place] [address] DOHLE BODY PRESENCE IN BLOOD BY LIGHT MICROSCOPY (PRESENT) Present Abnormal (none) [facility] Comment on above: Performed By: #### L [id number], [id number] ####Marble Installer: DEANNE CARSON ([id number])[facility] [place] (SBHLAB)[address] [place] [address]#### [id number] ####Marble Installer: KANDY VILLALOBOS ([id number])[facility])[address] [place] [address] LEUKOCYTES (10*3/UL) NUCLEATED ERYTHROCYTE ADJUST 31.7 10*3/uL Critically high 3.6-10.7 [facility] Comment on above: Performed By: #### L [id number], [id number] ####Marble Installer: DEANNE CARSON ([id number])[facility] [place] (SBHLAB)[address]#### [id number] ####Marble Installer: KANDY VILLALOBOS ([id number])[facility] ([facility])[address] [place] [address] LYMPHOCYTES (10*3/UL) IN BLOOD BY MANUAL COUNT 0.8 10*3/uL Low 1.0-4.3 [facility] Comment on above: Performed By: #### L [id number], [id number] ####Marble Installer: DEANNE CARSON ([id number])[facility] [place] (SBHLAB)[address]#### [id number] ####Marble Installer: KANDY VILLALOBOS ([id number])[facility] ([facility])[address] [place] [address] LYMPHOCYTES TOTAL PER COUNTED LEUKOCYTES BY MANUAL COUNT 8 Normal [facility] Comment on above: Performed By: #### L [id number], [id number] ####Marble Installer: DEANNE CARSON ([id number])[facility] [place] (SBHLAB)[address] [place] [address]#### [id number] ####Marble Installer: KANDY VILLALOBOS ([id number])[facility])[address] [place] [address] LYMPHOCYTES VARIANT/100 LEUKOCYTES IN BLOOD 0 % Normal <=0 [facility] Comment on above: Performed By: #### L [id number], [id number] ####Marble Installer: DEANNE CARSON ([id number])[facility] [place] (SBHLAB)[address] [place] [address] [place]#### [id number] ####Marble Installer: KANDY VILLALOBOS ([id number])[facility] ([facility])[address] [place] [address] [place] LYMPHOCYTES/100 LEUKOCYTES IN BLOOD BY MANUAL COUNT 3 % Low 15-45 [facility] Comment on above: Performed By: #### L [id number], [id number] ####Marble Installer: DEANNE CARSON ([id number])[facility] [place] (SBHLAB)[address] [place] [address] [place]#### [id number] ####Marble Installer: KANDY VILLALOBOS ([id number])[facility] (SACLAB)[address] [place] [address] METAMYELOCYTES (10*3/UL) IN BLOOD BY MANUAL COUNT 0.1 10*3/uL High <=0.0 [facility] Comment on above: Performed By: #### L [id number], [id number] ####Marble Installer: DEANNE CARSON ([id number])[facility] [place] (SBHLAB)[address]#### [id number] ####Marble Installer: KANDY VILLALOBOS ([id number])[facility] (SACLAB)[address] [place] [address] METAMYELOCYTES TOTAL PER COUNTED LEUKOCYTES BY MANUAL COUNT 1 Normal [facility] Comment on above: Performed By: #### L [id number], [id number] ####Marble Installer: DEANNE CARSON ([id number])[facility] [place] (SBHLAB)[address]#### [id number] ####Marble Installer: KANDY VILLALOBOS ([id number])[facility] (S[facility])[address] [place] [address] METAMYELOCYTES/100 LEUKOCYTES IN BLOOD BY MANUAL COUNT 0 % Normal <=0 [facility] Comment on above: Performed By: #### L [id number], [id number] ####Marble Installer: DEANNE CARSON ([id number])[facility] (SBHLAB)[address] [place] [address] [place]#### [id number] ####Marble Installer: KANDY VILLALOBOS ([id number])[facility] (S[facility])[address] [place] [address] MICROCYTES (PRESENCE) IN BLOOD BY LIGHT MICROSCOPY Moderate Abnormal (none) [facility] Comment on above: Performed By: #### L [id number], [id number] ####Marble Installer: DEANNE CARSON ([id number])[facility] [place] (SBHLAB)[address] [place] [address]#### [id number] ####Marble Installer: KANDY VILLALOBOS ([id number])[facility] (S[facility])[address] [place] [address] [place] MONOCYTES (10*3/UL) IN BLOOD BY MANUAL COUNT 2.0 10*3/uL High 0.0-0.9 [facility] Comment on above: Performed By: #### L [id number], [id number] ####Marble Installer: DEANNE CARSON ([id number])[facility] (SBHLAB)[address] [place] [address]#### [id number] ####Marble Installer: KANDY VILLALOBOS ([id number])[facility] (S[facility])[address] [place] [address] MONOCYTES TOTAL PER COUNTED LEUKOCYTES BY MANUAL COUNT 19 Normal [facility] Comment on above: Performed By: #### L [id number], [id number] ####Marble Installer: DEANNE CARSON ([id number])[facility] (SBHLAB)[address] [place] [address]#### [id number] ####Marble Installer: KANDY VILLALOBOS ([id number])[facility] (S[facility])[address] [place] [address] MONOCYTES/100 LEUKOCYTES IN BLOOD BY MANUAL COUNT 6 % Normal 5-13 [facility] Comment on above: Performed By: #### L [id number], [id number] ####Marble Installer: DEANNE CARSON ([id number])[facility])[address] [place] [address]#### [id number] ####Marble Installer: KANDY VILLALOBOS ([id number])[facility] ([facility])[address] [place] [address] NEUTROPHILS (SEGS+BANDS) (10*3/UL) BY MANUAL COUNT 28.6 10*3/uL High 1.8-7.0 [facility] Comment on above: Performed By: #### L [id number], [id number] ####Marble Installer: DEANNE CARSON ([id number])[facility] (SBHLAB)[address] [place] [address]#### [id number] ####Marble Installer: KANDY VILLALOBOS ([id number])[facility] ([facility])[address] [place] [address] NEUTROPHILS BAND FORM/100 LEUKOCYTES IN BLOOD BY MANUAL COUNT 7 % High <=0 [facility] Comment on above: Performed By: #### L [id number], [id number] ####Marble Installer: DEANNE CARSON ([id number])[facility])[address] [place] [address]#### [id number] ####Marble Installer: KANDY VILLALOBOS ([id number])[facility] ([facility])[address] [place] [address] NEUTROPHILS TOTAL PER COUNTED LEUKOCYTES BY MANUAL COUNT 250 Normal [facility] Comment on above: Performed By: #### Kyler [id number], [id number] ####Marble Installer: DEANNE CARSON ([id number])[facility])[address] [place] [address]#### [id number] ####Marble Installer: KANDY VILLALOBOS ([id number])[facility] ([facility])[address] [place] [address] PLATELET MORPHOLOGY IN BLOOD Normal Normal [facility] Comment on above: Performed By: #### L [id number], [id number] ####Marble Installer: DEANNE CARSON ([id number])[facility] (HLAB)[address] [place] [address]#### [id number] ####Marble Installer: KANDY VILLALOBOS ([id number])[facility] ([facility])[address] [place] [address] SEGEMENTED NEUTROPHILS/100 LEUKOCYTES BY MANUAL COUNT 83 % High 38-82 [facility] Comment on above: Performed By: #### L [id number], [id number] ####Marble Installer: DEANNE CARSON ([id number])[facility] (SBHLAB)[address] [place] [address]#### [id number] ####Marble Installer: KANDY VILLALOBOS ([id number])[facility] ([facility] [place] [address] SEGMENTED NEUTROPHILS (10*3/UL)IN BLOOD BY MANUAL COUNT 28.6 10*3/uL High 1.8-7.5 [facility] Comment on above: Performed By: #### L [id number], [id number] ####Marble Installer: DEANNE CARSON ([phone])[facility] (HLAB)[address] [place] [address]#### [id number] ####Marble Installer: KANDY VILLALOBOS ([id number])[facility] ([facility])[address] [place] [address] TOXIC GRANULES PRESENCE IN BLOOD BY LIGHT MICROSCOPY (PRESENT) Present Abnormal (none) [facility] Comment on above: Performed By: #### L [id number], [id number] ####Marble Installer: DEANNE CARSON ([id number])[facility] (HLAB)[address] [place] [address]#### [id number] ####Marble Installer: KANDY VILLALOBOS ([id number])[facility] ([facility])[address] [place] [address] VACUOLATED NEUTROPHILS PRESENCE IN BLOOD BY LIGHT MICROSCOPY (PRESENT) Present Abnormal (none) [facility] Comment on above: Performed By: #### L [id number], [id number] ####[place] Installer: DEANNE CARSON ([id number])[facility] ([facility])[address] [place] [address] [place]#### [id number] ####[place] Installer: KANDY VILLALOBOS ([id number])[facility] ([facility])[address] [place] [address] VARIANT LYMPHOCYTES (10*3/UL) IN BLOOD BY MANUAL COUNT 0.1 10*3/uL High <=0.0 [facility] Comment on above: Performed By: #### L [id number], [id number] ####[place] Installer: DEANNE CARSON ([id number])[facility] [place] ([facility])[address]#### [id number] ####[place] Installer: KANDY VILLALOBOS ([id number])[facility] ([facility])[address] [place] [address] VARIANT LYMPHOCYTES TOTAL PER COUNTED LEUKOCYTES BY MANUAL COUNT 1 Normal [facility] Comment on above: Performed By: #### L [id number], [id number] ####[place] Installer: DEANNE CARSON ([id number])[facility] [place] ([facility])[address]#### [id number] ####[place] Installer: KANDY VILLALOBOS ([id number])[facility] ([facility])[address] [place] [address] MANUAL DIFFERENTIAL (CELLAVI NVAEED)on 05-21-2024 BAND NEUTROPHILS TOTAL PER COUNTED LEUKOCYTES BY MANUAL COUNT 12 Normal [facility] Comment on above: Performed By: #### L [id number], [id number] ####Marble Installer: DEANNE CARSON ([phone])[facility] [place] ([facility] BANDS (10*3/UL) IN BLOOD-CELLAVISION 1.0 10*3/uL High <=0.0 [facility] Comment on above: Performed By: #### L [id number], [id number] ####Marble Installer: DEANNE CARSON ([id number])[facility] [place] ([facility] BASOPHILS TOTAL PER COUNTED LEUKOCYTES BY MANUAL COUNT Normal [facility] Comment on above: Performed By: #### L [id number], [id number] ####Marble Installer: DEANNE ALEJANDROCER ([phone])[facility] [place] (SBHLAB)155 [place] [address] [place] BLASTS TOTAL PER COUNTED LEUKOCYTES BY MANUAL COUNT Normal [facility] Comment on above: Performed By: #### L [id number], [id number] ####Marble Installer: DEANNE CABALLEROALEXANDR ([id number])[facility] [place] ([facility])[address] [place] [address] [place] BRICE CELLS PRESENCE IN BLOOD BY LIGHT MICROSCOPY Moderate Abnormal (none) [facility] Comment on above: Performed By: #### L [id number], [id number] ####Marble Installer: DEANNE CABALLEROALEXANDR ([phone])[facility] [place] ([facility])[address] [place] [address] [place] EOSINOPHILS TOTAL PER COUNTED LEUKOCYTES BY MANUAL COUNT Normal [facility] Comment on above: Performed By: #### L [id number], [id number] ####Marble Installer: DEANNE CABALLEROALEXANDR ([id number])[facility] [place] ([facility])[address] [place] [address] [place] LYMPHOCYTES (10*3/UL) IN BLOOD-CELLAVISION 0.6 10*3/uL Low 1.0-4.3 [facility] Comment on above: Performed By: #### L [id number], [id number] ####Marble Installer: DEANNE CARSON ([id number])[facility] [place] ([facility])[address] [place] [address] [place] LYMPHOCYTES TOTAL PER COUNTED LEUKOCYTES BY MANUAL COUNT 8 Normal [facility] Comment on above: Performed By: #### L [id number], [id number] ####Marble Installer: DEANNE CARSON ([id number])[facility] [place] ([facility])[address] [place] [address] [place] LYMPHOCYTES/100 LEUKOCYTES IN BLOOD-CELLAVISION 8 % Low 15-45 [facility] Comment on above: Performed By: #### L [id number], [id number] ####Marble Installer: DEANNE CABALLERO-DANA ([id number])[facility] [place] (SBHLAB)[address] [place] [address] [place] METAMYELOCYTES TOTAL PER COUNTED LEUKOCYTES BY MANUAL COUNT Normal [facility] Comment on above: Performed By: #### L [id number], [id number] ####Marble Installer: DEANNE ALLI ([id number])[facility] [place] ([facility])[address] [place] [address] [place] MONOCYTES (10*3/UL) IN BLOOD-CELLAVISION 0.2 10*3/uL Normal 0.0-0.9 [facility] Comment on above: Performed By: #### L [id number], [id number] ####Marble Installer: DEANNE ALLI ([id number])[facility] [place] (SB[facility]AB)[address] [place] [address] [place] MONOCYTES TOTAL PER COUNTED LEUKOCYTES BY MANUAL COUNT 2 Normal [facility] Comment on above: Performed By: #### L [id number], [id number] ####Marble Installer: DEANNE CABALLEROALEXANDR ([id number])[facility] [place] ([facility])[address] [place] [address] [place] MONOCYTES/100 LEUKOCYTES IN BLOOD-LYNETTE 2 % Low 5-13 [facility] Comment on above: Performed By: #### L [id number], [id number] ####Marble Installer: DEANNE CABALLEROALEXANDR ([id number])[facility] [place] ([facility])[address] [place] [address] [place] MYELOCYTES (10*3/UL) IN BLOOD-CELLAVISION 0.1 10*3/uL High <=0.0 [facility] Comment on above: Performed By: #### L [id number], [id number] ####Marble Installer: DEANNE CABALLEROALEXANDR ([id number])[facility] [place] (SB[facility])[address] [place] [address] [place] MYELOCYTES COUNTED BY MANUAL COUNT 1 Normal [facility] Comment on above: Performed By: #### L [id number], [id number] ####Marble Installer: DEANNE ALLI ([id number])[facility] [place] (SB[facility]AB)[address] [place] [address] [place] MYELOCYTES/100 LEUKOCYTES IN BLOOD-CELLAVISION 1 % High <=0 [facility] Comment on above: Performed By: #### L [id number], [id number] ####Marble Installer: DEANNE ALLI ([id number])[facility] [place] (SB[facility]AB)[address] [place] [address] [place] NEUTROPHILS BAND FORM/100 LEUKOCYTES IN BLOOD-CELLAVISI 12 % High <=0 [facility] Comment on above: Performed By: #### L [id number], [id number] ####Marble Installer: DEANNE CABALLEROALEXANDR ([id number])[facility] [place] ([facility])[address] NEUTROPHILS TOTAL PER COUNTED LEUKOCYTES BY MANUAL COUNT 78 Normal [facility] Comment on above: Performed By: #### L [id number], [id number] ####Marble Installer: DEANNE ALLI ([id number])[facility] [place] (SBHLAB)[address] [place] [address] [place] POIKILOCYTOSIS (PRESENCE) IN BLOOD BY LIGHT MICROSCOPY Slight Abnormal (none) [facility] Comment on above: Performed By: #### L [id number], [id number] ####Marble Installer: DEANNE CABALLEROALEXANDR ([id number])[facility] [place] (SB[facility]AB)[address] [place] [address] [place] POLYCHROMASIA IN BLOOD BY LIGHT MICROSCOPY Slight Abnormal (none) [facility] Comment on above: Performed By: #### L [id number], [id number] ####Marble Installer: DEANNE CABALLEROALEXANDR ([id number])[facility] [place] (SBHLAB)[address] [place] [address] [place] PROMYELOCYTES TOTAL PER COUNTED LEUKOCYTES BY MANUAL COUNT Normal [facility] Comment on above: Performed By: #### L [id number], [id number] ####Marble Installer: DEANNE CARSON ([id number])[facility] [place] ([facility])[address] [place] [address] [place] RBC MORPHOLOGY IN BLOOD abnormal Normal [facility] Comment on above: Performed By: #### L [id number], [id number] ####Marble Installer: DEANNE CARSON ([id number])[facility] [place] (SBHLAB)[address] [place] [address] [place] SEGMENTED NEUTROPHILS (10*3/UL) IN BLOOD-CELLAVISION 7.1 10*3/uL Normal 1.8-7.5 [facility] Comment on above: Performed By: #### L [id number], [id number] ####Marble Installer: DEANNE CARSON ([id number])[facility] ([facility])[address] SEGMENTED NEUTROPHILS/100 LEUKOCYTES-CE 77 % Normal 38-82 [facility] Comment on above: Performed By: #### L [id number], [id number] ####Marble Installer: DEANNE CARSON ([id number])[facility] [place] (SB[facility]AB)[address] [place] [address] [place] TOXIC GRANULES PRESENCE IN BLOOD BY LIGHT MICROSCOPY (PRESENT) Present Abnormal (none) [facility] Comment on above: Performed By: #### L [id number], [id number] ####Marble Installer: DEANNE CARSON ([id number])[facility] [place] (SB[facility]AB)[address] UNCLASSIFIED CELLS TOTAL PER COUNTED LEUKOCYTES BY MANUAL COUNT Normal [facility] Comment on above: Performed By: #### L [id number], [id number] ####Marble Installer: DEANNE CARSON ([id number])[facility] (SB[facility])[address] [place] [address] [place] VACUOLATED NEUTROPHILS PRESENCE IN BLOOD BY LIGHT MICROSCOPY (PRESENT) Present Abnormal (none) [facility] Comment on above: Performed By: #### L [id number], [id number] ####Marble Installer: DEANNE CARSON ([id number])[facility] [place] (SB[facility])[address] VARIANT LYMPHOCYTES TOTAL PER COUNTED LEUKOCYTES BY MANUAL COUNT Normal [facility] Comment on above: Performed By: #### L [id number], [id number] ####Marble Installer: DEANNE CARSON ([id number])[facility] (SBHLAB)[address] Magnesium [Mass/Vol]on 05-21 Interpretation and review of laboratory results Abnormal [facility] Manual differential performe d Ql (Bld)on 05-21-2024 Atypical Lymphocytes Manual 1 [facility] Band form neutrophils (Bld) [#/Vol] 2.2 10*3/uL High NINF - 0.0 10*3/uL [facility] Band form neutrophils/100 WBC (Bld) 7 % High NINF - 0 % [facility] Bands Manual 21 [facility] Cells Counted Total (Bld) [#] 300 {cells} [facility] Differential Method Manual differential performed [facility] Dohle body LM Ql (Bld) Present Abnormal (none) [facility] Interpretation and review of laboratory results Abnormal [facility] Lymphocytes (Bld) [#/Vol] 0.8 10*3/uL Low 1.0 - 4.3 10*3/uL [facility] Lymphocytes Manual 8 [facility] Lymphocytes/100 WBC (Bld) 3 % Low 15 - 45 % [facility] Metamyelocytes (Bld) [#/Vol] 0.1 10*3/uL High NINF - 0.0 10*3/uL [facility] Metamyelocytes Manual 1 [facility] Metamyelocytes/100 WBC (Bld) 0 % NINF - 0 % [facility] Microcytes Ql (Bld) Moderate Abnormal (none) [facility] Monocytes (Bld) [#/Vol] 2 10*3/uL High 0.0 - 0.9 10*3/uL [facility] Monocytes Manual 19 [facility] alth Monocytes/100 WBC (Bld) 6 % 5 - 13 % [facility] Neutrophils (Bld) [#/Vol] 28.6 10*3/uL High 1.8 - 7.5 10*3/uL [facility] Neutrophils Manual 250 [facility] Neutrophils.vacuolated LM Ql (Bld) Present Abnormal (none) [facility] Platelet morphology finding Nom (Bld) Normal [facility] Segmented neutrophils/100 WBC (Bld) 83 % High 38 - 82 % [facility] Toxic granules LM Ql (Bld) Present Abnormal (none) [facility] Variant lymphocytes (Bld) [#/Vol] 0.1 10*3/uL High NINF - 0.0 10*3/uL [facility] Variant lymphocytes/100 WBC (Bld) 0 % NINF - 0 % [facility] WBC corrected for nucl RBC (Bld) [#/Vol] 31.7 10*3/uL Critically high 3.6 - 10.7 10*3/uL [facility] No Panel Informationon 05-21 Interpretation and review of laboratory results Abnormal [facility] Bands Manual 12 [facility] Interpretation and review of laboratory results Abnormal [facility] Lymphocytes Manual 8 [facility] Monocytes Manual 2 [facility] alth Myelocytes Manual [address] [facility] ealth Neutrophils Manual 78 [facility] Interpretation and review of laboratory results Abnormal [facility] Interpretation and review of laboratory results Normal [facility] Interpretation and review of laboratory results Abnormal [facility] Interpretation and review of laboratory results Abnormal [facility] Interpretation and review of laboratory results Abnormal [facility] Source Of Oxygen Nasal Cannula (LPM) [facility] Interpretation and review of laboratory results Abnormal [facility] Interpretation and review of laboratory results Abnormal [facility] Interpretation and review of laboratory results Abnormal [facility] Interpretation and review of laboratory results Abnormal [facility] IMAGING Interpretation and review of laboratory results Abnormal [facility] OSMOLALITY, SERUMon 05-22-19 25 OSMOLALITY, SERUM 285 mOsm/kg Normal 280-300 [facility] Comment on above: Performed By: #### L [id number] ####Marble Installer: DEANNE CARSON ([id number])[facility] [place] ([facility] [place] [address] OSMOLALITY, URINEon 05-22-19 25 OSMOLALITY, URINE 435 mOsm/kg Normal 300-1000 [facility] Comment on above: Performed By: #### L [id number], [id number] ####Marble Installer: DEANNE CARSON ([id number])[facility] ([facility])[address] [place] [address] Op Noteon 05-21-2024 Op Note Normal [facility] PATHOLOGY REVIEWon PATHOLOGY REVIEW Normal [facility] Comment on above: Result Comment: Leuk ocytosis with absolute neutrophilia, left shift, and monocytosis with toxic vacuoles - rule out infectious/inflammatory process, drug effects (corticosteroids), autoimmune disorders, or marrow stress response.Microcytic, hypochromic anemia with brice cells and increased polychromasia - rule out blood loss, renal insufficiency, hemolysis, nutritional deficiency, or anemia of chronic inflammation. Performed By: #### L [id number], [id number] ####Marble Installer: DEANNE CARSON ([id number])[facility] ([facility])[address] [place] [address]#### [id number] ####Marble Installer: KANDY VILLALOBOS ([id number])[facility] ([facility])[address] [place] [address] PROCALCITONIN TESTon 025 PROCALCITONIN 1.48 ng/mL High <0.07 [facility] Comment on above: Result Comment: ISSAC R COMMENTS:PCT <0.50 = Low risk of severe sepsis and/or septic shock.PCT >2.00 = High risk of severe sepsis and/or septic shock. Performed By: #### L [id number], [id number], [id number], LAB61, [id number], [id number] ####Marble Installer: DEANNE CARSON ([id number])[facility] ([facility])[address] [place] [address] Procalcitonin [Mass/Vol]on 0 05-21-2024 Interpretation and review of laboratory results Abnormal [facility] Progress Noteon 05-21-2024 Progress Note Normal [facility] SODIUM, URINE, RANDOMon 05-10 CREATININE, URINE 38.5 mg/dL Low 63.0-166.0 [facility] Comment on above: Performed By: #### L [id number], [id number] ####Marble Installer: DEANNE PARADADANA ([phone])[facility] (SBHLAB)[address] [place] [address] SODIUM, URINE <20 Normal [facility] Comment on above: Performed By: #### L [id number], [id number] ####Marble Installer: DEANNE CABALLEROKACIEDANA ([id number])[facility] (HLAB)[address] [place] [address] SODIUM, URINE, FRACTIONAL EXCRETION <0.4 Normal [facility] Comment on above: Performed By: #### L [id number], [id number] ####Marble Installer: DEANNE CARSON ([id number])[facility] [place] [address] SODIUM, URINE, TUBULAR REABSORPTION >1.0 Normal [facility] Comment on above: Performed By: #### L [id number], [id number] ####Marble Installer: DEANNE CABALLEROKACIEDANA ([id number])[facility] ([facility])[address] [place] [address] THYROID STIMULATING HORMONEo n 05-21-2024 THYROID STIMULATING HORMONE 1.14 uIU/mL Normal 0.35-4.94 [facility] Comment on above: Performed By: #### L AB149, [id number], LAB15, LAB61, [id number], [id number] ####Marble Installer: DEANNE CARSON ([id number])[facility] ([facility])[address] [place] [address] TSH Qnon 05-21-2024 Interpretation and review of laboratory results Normal [facility] URINE CULTUREon 05-21-2024 Bacteria identified Cx Nom (U) Normal [facility] Comment on above: Performed By: #### L [id number] ####Marble Installer: KANDY VILLALOBOS ([id number])[facility] ([facility])[address] [place] [address] [facility]#### [id number] ####Marble Installer: DEANNE CARSON ([id number])[facility] [place] (SBHLAB)[address] [place] [address] [facility] Vital signson 05-21-2024 Oxygen saturation in Venous blood 39.9 % [facility] Basic Metabolic Panelon Anion gap [Moles/Vol] 10 mmol/L Normal 3-13 [facility] Comment on above: Order Comment: Speci men slightly hemolyzed 08/15/2021 16:01 Performed By: #### B MP3, HEMDF, TROPN #### [facility] [address] [place] [address] Calcium [Mass/Vol] 9.4 mg/dL Normal 8.4-10.4 [facility] Comment on above: Order Comment: Speci men slightly hemolyzed 08/15/2021 16:01 Performed By: #### B MP3, HEMDF, TROPN #### [facility] [address] [place] [address] CO2 [Moles/Vol] 24 mmol/L Normal 22-30 [facility] Comment on above: Order Comment: Speci men slightly hemolyzed 08/15/2021 16:01 Performed By: #### B MP3, HEMDF, TROPN #### [facility] [address] [place] [address] Glucose [Mass/Vol] 363 mg/dL High 70-100 [facility] Comment on above: Order Comment: Speci men slightly hemolyzed 08/15/2021 16:01 Performed By: #### B MP3, HEMDF, TROPN #### [facility] [address] [place] [address] Urea nitrogen [Mass/Vol] 14 mg/dL Normal 7-17 [facility] Comment on above: Order Comment: Speci men slightly hemolyzed 08/15/2021 16:01 Performed By: #### B MP3, HEMDF, TROPN #### [facility] [address] [place] [address] Creatinine [Mass/Vol] 0.57 mg/dL Normal 0.52-1.25 [facility] Comment on above: Order Comment: Jovana taylor slightly hemolyzed 08/15/2021 16:01 Performed By: #### B MP3, HEMDF, TROPN #### [facility] [address] [place] [address] eGFR OTHER > 90.0 Normal >60 [facility] Comment on above: Order Comment: Specjhonatan taylor slightly hemolyzed 08/15/2021 16:01 Result Comment: KDIG O guidelines provide the following GFR categories: Stage GFR(ml/min/1.73 m2) Terms G1 >=90 Normal or high G2 60-89 Mildly decreased* G3a 45-59 Mildly to moderately decreased G3b 30-44 Moderately to severely decreased G4 15-29 Severely decreased G5 <15 Kidney failure *Relative to young adult level. In the absence of evidence of kidney damage, neither GFR category G1 nor G2 fulfill the criteria for CKD. The CKD-EPI equation is validated in individuals 18 years of age and older. Currently the best equation for estimating glomerular filtration rate (GFR) from serum creatinine in children is the Bedside Gonzalez equation. It is less accurate in patients with extremes of muscle mass, restriction of dietary protein, ingestion of creatine, extra-renal metabolism of creatinine, or treatment with medications that affect renal tubular creatinine secretion. Performed By: #### B MP3, HEMDF, TROPN #### [facility] [address] [place] [address] GFR/1.73 sq M.predicted among blacks MDRD (S/P/Bld) [Vol rate/Area] mL/min/{1.73_m2} Normal >60 [facility] Comment on above: Order Comment: Specjhonatan taylor slightly hemolyzed 08/15/2021 16:01 Performed By: #### B MP3, HEMDF, TROPN #### [facility] [address] [place] [address] Potassium [Moles/Vol] 4.5 mmol/L Normal 3.5-5.1 [facility] Comment on above: Order Comment: Specjhonatan taylor slightly hemolyzed 08/15/2021 16:01 Performed By: #### B MP3, HEMDF, TROPN #### [facility] [address] [place] [address] Chloride [Moles/Vol] 100 mmol/L Normal 98-107 [facility] Comment on above: Order Comment: Speci men slightly hemolyzed 08/15/2021 16:01 Performed By: #### B MP3, HEMDF, TROPN #### [facility] [address] [place] [address] Sodium [Moles/Vol] 134 mmol/L Low 135-145 [facility] Comment on above: Order Comment: Speci men slightly hemolyzed 08/15/2021 16:01 Performed By: #### B MP3, HEMDF, TROPN #### [facility] [address] [place] [address] Anion gap [Moles/Vol] 10 mmol/L 3 - 13 mmol/L [facility] Calcium [Mass/Vol] 9.4 mg/dL 8.4 - 10. 4 mg/dL [facility] Chloride [Moles/Vol] 100 mmol/L 98 - 10 7 mmol/L [facility] CO2 [Moles/Vol] 24 mmol/L 22 - 30 mmol/L [facility] Creatinine [Mass/Vol] 0.57 mg/dL 0.52 - 1.25 mg/dL [facility] EGFR IF NonAfrican [place] >90.0 >60 mL/min [facility] Comment on above: KDIGO guidelines pro vide the following GFR categories: Stage GFR(ml/min/1.73 m2) Terms G1 >=90 Normal or high G2 60-89 Mildly decreased* G3a 45-59 Mildly to moderately decreased G3b 30-44 Moderately to severely decreased G4 15-29 Severely decreased G5 <15 Kidney failure *Relative to young adult level. In the absence of evidence of kidney damage, neither GFR category G1 nor G2 fulfill the criteria for CKD. The CKD-EPI equation is validated in individuals 18 years of age and older. Currently the best equation for estimating glomerular filtration rate (GFR) from serum creatinine in children is the Bedside Gonzalez equation. It is less accurate in patients with extremes of muscle mass, restriction of dietary protein, ingestion of creatine, extra-renal metabolism of creatinine, or treatment with medications that affect renal tubular creatinine secretion. GFR/1.73 sq M.predicted among blacks MDRD (S/P/Bld) [Vol rate/Area] mL/min/{1.73_m2} >60 mL/min [facility] Glucose [Mass/Vol] 363 mg/dL High 70 - 100 mg/dL [facility] Interpretation and review of laboratory results Abnormal [facility] Potassium [Moles/Vol] 4.5 mmol/L 3.5 - 5.1 mmol/L [facility] Sodium [Moles/Vol] 134 mmol/L Low 135 - 145 mmol/L [facility] Urea nitrogen (BldV) [Mass/Vol] 14 mg/dL 7 - 17 mg/dL [facility] Test Performed by [facility], [address] [place], [place], [place] [address] Specimen slightly hemolyzed 08/15/2021 16:[address] [facility] CBC with Auto Differentialon 08-15-2021 Absolute Baso # 0.1 10*3/uL 0.0 - 0.2 10*3/uL [facility] Absolute Neut # 4.0 10*3/uL 1.8 - 7.0 10*3/uL [facility] Basophils/100 WBC (Bld) 1.1 % 0.0 - 2.0 % [facility] Eosinophils (Bld) [#/Vol] 0.1 10*3/uL 0.0 - 0.5 10*3/uL [facility] Eosinophils/100 WBC (Bld) 1.3 % 1.0 - 6.0 % [facility] Granulocytes/100 WBC (Bld) 62.6 % 40.0 - 80.0 % [facility] Hematocrit (Bld) [Volume fraction] 43.0 % 40.0 - 52.0 % [facility] Hemoglobin (Bld) [Mass/Vol] 15.1 g/dL 13.0 - 18.0 g/dL [facility] Interpretation and review of laboratory results Abnormal [facility] Lymphocytes (Bld) [#/Vol] 1.9 10*3/uL 1.0 - 4.3 10*3/uL [facility] Lymphocytes/100 WBC (Bld) 30.1 % 20.0 - 40.0 % [facility] MCH (RBC) [Entitic mass] 27.1 pg 26. 0 - 34.0 pg [facility] MCHC (RBC) [Mass/Vol] 35.1 % 32.0 - 36.0 % [facility] MCV (RBC) [Entitic vol] 77.2 fL Low 80.0 - 98.0 fL [facility] Monocytes (Bld) [#/Vol] 0.3 10*3/uL 0.0 - 0.8 10*3/uL [facility] Monocytes/100 WBC (Bld) 4.9 % 2.0 - 10.0 % [facility] Platelet distribution width (Bld) [Ratio] 15.0 % High 11.5 - 14.5 % [facility] Platelet mean volume (Bld) [Entitic vol] 7.7 fL 7.4 - 12.4 fL [facility] Comment on above: MPV is a calculated measurement using platelet volume ratio. Platelets (Bld) [#/Vol] 126 10*3/uL Low 140 - 440 10*3/uL [facility] RBC (Bld) [#/Vol] 5.57 10*6/uL 4.40 - 5.9 0 10*6/uL [facility] WBC (Bld) [#/Vol] 6.4 10*3/uL 3.6 - 10.7 10*3/uL [facility] Test Performed by [facility], [address] [place] [address] LAB [facility] ED Provider Noteon 2 ED Provider Note [facility] ED EMERGENCY DEPARTMENT ENCOUNTER Pt Name: Miranda Ro Birthdate 1980 Date of evaluation: 08/15/2021 Provider: Ruth Israel MD CHIEF COMPLAINT Chief Complaint Patient presents with ? Rash ? Facial Droop HISTORY OF PRESENT ILLNESS (Location/Symptom, Timing/Onset, Context/Setting, Quality, Duration, Modifying Factors, Severity) Note limiting factors. I wore a surgical mask for the entirety of this encounter. Miranda Ro is a 41 y.o. male with a past medical history of Deafness, DM, HTN, obesity, presenting with light-headedness that started today as well as about 36 hours of left-sided facial droop. He clarifies the light-headedness is more of a "wooziness" and not room spinning. No headache, chest pain, palpitations, nausea, vomiting, cough, congestion, runny nose, sore throat, etc or any recent illnesses. He does complain of a rash on his chest. No visual sx other than slow blinking of his left eye. No weakness, numbness, tingling, or anything other neurologic symptoms. 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 Past Medical history reviewed. REVIEW OF SYSTEMS (2+ for level 4; 10+ for level 5) Review of Systems Constitutional: Negative for diaphoresis and fever. HENT: Negative for congestion. Eyes: Negative for discharge and redness. Respiratory: Negative for cough, shortness of breath and stridor. Cardiovascular: Negative for chest pain and leg swelling. Gastrointestinal: Negative for nausea and vomiting. Musculoskeletal: Positive for back pain (chronic). Negative for neck pain. Skin: Negative for pallor and wound. Allergic/Immunologic : Negative for immunocompromised state. Neurological: Positive for facial asymmetry and light-headedness. Negative for syncope, weakness, numbness and headaches. Psychiatric/Behavior al: Negative for agitation and confusion. PAST MEDICAL HISTORY Past Medical History: Diagnosis Date ? Chavarria's palsy ? Deaf ? Diabetes mellitus (HCC) ? Gout ? Hypertension ? Obesity ? Scoliosis ? Speech impairment SURGICAL HISTORY Past Surgical History: Procedure Laterality Date ? APPENDECTOMY ? UPPER GASTROINTESTINAL ENDOSCOPY 06/18/2020 Dr lazar/CAL CURRENT MEDICATIONS Previous Medications ASPIRIN EC 81 MG EC TABLET Take 1 tablet by mouth daily ATORVASTATIN (LIPITOR) 80 MG TABLET Take 1 pill by mouth nightly BLOOD GLUCOSE TEST STRIPS (ASCENSIA AUTODISC ;ONE TOUCH ULTRA TEST ) STRIP 1 each by In Vitro route daily Indications: Type 2 Diabetes Dispense True Metrix test strips CALCIUM CARB-CHOLECALCIFEROL (OYSCO D) 250-125 MG-UNIT TABS Take 1 tablet by mouth daily DULAGLUTIDE (TRULICITY) 1.5 MG/0.5ML SOPN Inject 1.5 mg into the skin once a week LANCETS MISC 1 each by Does not apply route daily Indications: Type 2 Diabetes Dispense True Metrix lancets LISINOPRIL (PRINIVIL;ZESTRIL) 20 MG TABLET Take 1 tablet by mouth daily METFORMIN (GLUCOPHAGE) 500 MG TABLET TAKE ONE TABLET BY MOUTH TWO TIMES A DAY with meals ALLERGIES Pcn [penicillins] FAMILY HISTORY Family History Problem Relation Age of Onset ? Asthma Mother ? Diabetes Mother ? Heart Disease Mother ? High Blood Pressure Mother ? Early Sister infant -7 months old ? Cancer Brother ? Diabetes Brother SOCIAL HISTORY Social History Socioeconomic History ? Marital status: Single Spouse name: None ? Number of children: None ? Years of education: None ? Highest education level: None Occupational History ? None Tobacco Use ? Smoking status: Never Smoker ? Smokeless tobacco: Never Used Substance and Sexual Activity ? Alcohol use: No Alcohol/week: 0.0 standard drinks ? Drug use: No ? Sexual activity: None Other Topics Concern ? None Social History Narrative ? None Social Determinants of Health Financial Resource Strain: ? Difficulty of Paying Living Expenses: Not on file Food Insecurity: ? Worried About Running Out of Food in the Last Year: Not on file ? Ran Out of Food in the Last Year: Not on file Transportation Needs: ? Lack of Transportation (Medical): Not on file ? Lack of Transportation (Non-Medical): Not on file Physical Activity: ? Days of Exercise per Week: Not on file ? Minutes of Exercise per Session: Not on file Stress: ? Feeling of Stress : Not on file Social Connections: ? Frequency of Communication with Friends and Family: Not on file ? Frequency of Social Gatherings with Friends and Family: Not on file ? Attends Cheondoism Services: Not on file ? Active Member of Clubs or Organizations: Not on file ? Attends Club or Organization Meetings: Not on file ? Marital Status: Not on file Intimate Partner Violence: ? Fear of Current or Ex-Partner: Not on file ? Emotionally Abused: Not on file ? Physically Abused: Not on file ? Sexually Abused: Not on file Housing Stability: ? U (more content not included)... Normal [facility] Hemogram w/ Autodiffon 08-15 Abs Baso Cnt 0.1 10*3/uL Normal 0.0-0.2 [facility] Comment on above: Performed By: #### B MP3, HEMDF, TROPN #### [facility] [address] [place] [address] Abs Neutrophile Cnt 4.0 10*3/uL Normal 1.8-7.0 [facility] Comment on above: Performed By: #### B MP3, HEMDF, TROPN #### [facility] [address] [place] [address] Basophils/100 WBC (Bld) 1.1 % Normal 0.0-2.0 [facility] Comment on above: Performed By: #### B MP3, HEMDF, TROPN #### [facility] [address] [place] [id number] Eosinophils (Bld) [#/Vol] 0.1 10*3/uL Normal 0.0-0.5 [facility] Comment on above: Performed By: #### B MP3, HEMDF, TROPN #### [facility] [address] [place] [address] Eosinophils/100 WBC (Bld) 1.3 % Normal 1.0-6.0 [facility] Comment on above: Performed By: #### B MP3, HEMDF, TROPN #### [facility] [address] [place] [address] Erythrocyte distribution width (RBC) [Ratio] 15.0 % High 11.5-14.5 [facility] Comment on above: Performed By: #### B MP3, HEMDF, TROPN #### [facility] [address] [place] [address] Granulocytes/100 WBC (Bld) 62.6 % Normal 40.0-80.0 [facility] Comment on above: Performed By: #### B MP3, HEMDF, TROPN #### [facility] [address] [place] [address] Hematocrit (Bld) [Volume fraction] 43.0 % Normal 40.0-52.0 [facility] Comment on above: Performed By: #### B MP3, HEMDF, TROPN #### [facility] [address] [place] [address] Hemoglobin (Bld) [Mass/Vol] 15.1 g/dL Normal 13.0-18.0 [facility] Comment on above: Performed By: #### B MP3, HEMDF, TROPN #### [facility] [address] [place] [address] Lymphocytes (Bld) [#/Vol] 1.9 10*3/uL Normal 1.0-4.3 [facility] Comment on above: Performed By: #### B MP3, HEMDF, TROPN #### [facility] [address] [place] [address] Lymphocytes/100 WBC (Bld) 30.1 % Normal 20.0-40.0 [facility] Comment on above: Performed By: #### B MP3, HEMDF, TROPN #### [facility] [address] [place] [address] MCH (RBC) [Entitic mass] 27.1 pg Normal 26.0-34.0 [facility] Comment on above: Performed By: #### B MP3, HEMDF, TROPN #### [facility] [address] [place] [address] MCHC 35.1 % Normal 32.0-36.0 [facility] Comment on above: Performed By: #### B MP3, HEMDF, TROPN #### [facility] [address] [place] [address] MCV (RBC) [Entitic vol] 77.2 fL Low 80.0-98.0 [facility] Comment on above: Performed By: #### B MP3, HEMDF, TROPN #### [facility] [address] [place] [address] Monocytes (Bld) [#/Vol] 0.3 10*3/uL Normal 0.0-0.8 [facility] Comment on above: Performed By: #### B MP3, HEMDF, TROPN #### [facility] [address] [place] [address] Monocytes/100 WBC (Bld) 4.9 % Normal 2.0-10.0 [facility] Comment on above: Performed By: #### B MP3, HEMDF, TROPN #### [facility] [address] [place] [address] Platelet mean volume (Bld) [Entitic vol] 7.7 fL Normal 7.4-12.4 [facility] Comment on above: Result Comment: MPV is a calculated measurement using platelet volume ratio. Performed By: #### B MP3, HEMDF, TROPN #### [facility] [address] [place] [address] Platelets (Bld) [#/Vol] 126 10*3/uL Low 140-440 [facility] Comment on above: Performed By: #### B MP3, HEMDF, TROPN #### [facility] [address] [place] [address] RBC (Bld) [#/Vol] 5.57 10*6/uL Normal 4.40-5.90 [facility] Comment on above: Performed By: #### B MP3, HEMDF, TROPN #### [facility] [address] [place] [address] WBC (Bld) [#/Vol] 6.4 10*3/uL Normal 3.6-10.7 [facility] Comment on above: Performed By: #### B MP3, HEMDF, TROPN #### [facility] [address] [place] [address] Troponinon 08-15-2021 Troponin I.cardiac [Mass/Vol] ng/mL 0.000 - 0.034 ng/mL [facility] Comment on above: . Test Performed by [facility], [address] [place], [place] [address] Specimen slightly hemolyzed 08/15/2021 16:[address] [facility] Troponin Ion 08-15-2021 Troponin I.cardiac [Mass/Vol] ng/mL Normal 0.000-0.034 [facility] Comment on above: Order Comment: Speci men slightly hemolyzed 08/15/2021 16:01 Result Comment: . Performed By: #### B MP3, HEMDF, TROPN #### [facility] [address] [place] [address] Comprehensive Metabolic Pane l w/ Reflex to MGon 06-18-2020 Albumin [Mass/Vol] 3.5 g/dL 3.5 - 5.0 g/dL [facility] Work Phone: ALP (Bld) [Catalytic activity/Vol] 116 U/L 38 - 126 U/L [facility] Work Phone: ALT [Catalytic activity/Vol] 27 U/L 0 - 49 U/L [facility] Work Phone: Comment on above: The ALT test is perf ormed by an updated assay method. Please note that the reference intervals have been changed and are now sex specific. Anion gap [Moles/Vol] 5 mmol/L 3 - 13 mmol/L [facility] Work Phone: AST [Catalytic activity/Vol] 25 U/L 15 - 46 U/L [facility] Work Phone: Bilirubin [Mass/Vol] 1.5 mg/dL High 0.2 - 1 .3 mg/dL [facility] Work Phone: Calcium [Mass/Vol] 8.1 mg/dL Low 8.4 - 10. 4 mg/dL [facility] Work Phone: Chloride [Moles/Vol] 107 mmol/L 98 - 10 7 mmol/L [facility] Work Phone: CO2 [Moles/Vol] 22 mmol/L 22 - 30 mmol/L [facility] Work Phone: Creatinine [Mass/Vol] 0.57 mg/dL 0.52 - 1.25 mg/dL [facility] Work Phone: EGFR IF NonAfrican Kittitian >90.0 >60 mL/min [facility] Work Phone: Comment on above: KDIGO guidelines pro vide the following GFR categories: Stage GFR(ml/min/1.73 m2) Terms G1 >=90 Normal or high G2 60-89 Mildly decreased* G3a 45-59 Mildly to moderately decreased G3b 30-44 Moderately to severely decreased G4 15-29 Severely decreased G5 <15 Kidney failure *Relative to young adult level. In the absence of evidence of kidney damage, neither GFR category G1 nor G2 fulfill the criteria for CKD. The CKD-EPI equation is validated in individuals 18 years of age and older. Currently the best equation for estimating glomerular filtration rate (GFR) from serum creatinine in children is the Bedside Gonzalez equation. It is less accurate in patients with extremes of muscle mass, restriction of dietary protein, ingestion of creatine, extra-renal metabolism of creatinine, or treatment with medications that affect renal tubular creatinine secretion. Free PSA/Prostate specific Ag.total [Mass fraction] 6.6 g/dL 6.3 - 8.2 g/dL [facility] Work Phone: GFR/1.73 sq M predicted among blacks MDRD (S/P/Bld) [Vol rate/Area] mL/min/{1.73_m2} >60 mL/min [facility] Work Phone: Glucose [Mass/Vol] 228 mg/dL High 70 - 100 mg/dL [facility] Work Phone: [phone] Interpretation and review of laboratory results Abnormal [facility] Work Phone: [phone] Potassium [Moles/Vol] 3.8 mmol/L 3.5 - 5.1 mmol/L [facility] Work Phone: [phone] Sodium [Moles/Vol] 135 mmol/L 135 - 145 mmol/L [facility] Work Phone: [phone] Urea nitrogen (BldV) [Mass/Vol] 25 mg/dL High 7 - 20 mg/dL [facility] Work Phone: [phone] Test Performed by [facility], [address] [place] [id number] [place], [place] [address]A Work Phone: [phone] Hemoglobin and hematocrit, b loodon 06-18-2020 Hematocrit (Bld) [Volume fraction] 38.7 % Low 40.0 - 52.0 % [facility] Work Phone: [phone] Hemoglobin.gastrointesti nal spec 1 Ql (Stl) 13.7 g/dL 13.0 - 18.0 g/dL [facility] Work Phone: [phone] Interpretation and review of laboratory results Abnormal [facility] Work Phone: [phone] Test Performed by [facility], [address] [place], [place] [id number] [place], [place] [address]A Work Phone: [phone] POCT Glucoseon 06-18-2020 Glucose [Mass/Vol] 230 mg/dL High 70 - 100 mg/dL [facility] Work Phone: [phone] Comment on above: Test performed by ucose meter. Results may be 10%-15% lower than serum/plasma values. (CLIA ID [id number]) Interpretation and review of laboratory results Abnormal [facility] Work Phone: Test Performed by [facility], [address] [place], [place] [address] [facility] Work Phone: Glucose [Mass/Vol] 217 mg/dL High 70 - 100 mg/dL [facility] Work Phone: Comment on above: Test performed by [employer] ucose meter. Results may be 10%-15% lower than serum/plasma values. (CLIA ID [id number]) Interpretation and review of laboratory results Abnormal [facility] Work Phone: Test Performed by [facility], [address] [place], [place] [address] [facility] Work Phone: TYPE AND SCREENon 06-18-2020 Sodium [Moles/Vol] Negative [facility] Work Phone: Sodium [Moles/Vol] A [facility] Work Phone: Sodium [Moles/Vol] Positive [facility] Work Phone: Test Performed by [facility], [address] [place], [place] [address] [facility] Work Phone: Basic Metabolic Panelon 04-0 Anion gap [Moles/Vol] 10 mmol/L 3 - 13 mmol/L [facility] Work Phone: Calcium [Mass/Vol] 9.0 mg/dL 8.4 - 10. 4 mg/dL [facility] Work Phone: Chloride [Moles/Vol] 101 mmol/L 98 - 10 7 mmol/L [facility] Work Phone: CO2 [Moles/Vol] 24 mmol/L 22 - 30 mmol/L [facility] Work Phone: Creatinine [Mass/Vol] 0.56 mg/dL 0.52 - 1.25 mg/dL [facility] Work Phone: EGFR IF NonAfrican Kittitian >90.0 >60 mL/min [facility] Work Phone: Comment on above: KDIGO guidelines pro vide the following GFR categories: Stage GFR(ml/min/1.73 m2) Terms G1 >=90 Normal or high G2 60-89 Mildly decreased* G3a 45-59 Mildly to moderately decreased G3b 30-44 Moderately to severely decreased G4 15-29 Severely decreased G5 <15 Kidney failure *Relative to young adult level. In the absence of evidence of kidney damage, neither GFR category G1 nor G2 fulfill the criteria for CKD. The CKD-EPI equation is validated in individuals 18 years of age and older. Currently the best equation for estimating glomerular filtration rate (GFR) from serum creatinine in children is the Bedside Gonzalez equation. It is less accurate in patients with extremes of muscle mass, restriction of dietary protein, ingestion of creatine, extra-renal metabolism of creatinine, or treatment with medications that affect renal tubular creatinine secretion. GFR/1.73 sq M predicted among blacks MDRD (S/P/Bld) [Vol rate/Area] mL/min/{1.73_m2} >60 mL/min [employer] Work Phone: Glucose [Mass/Vol] 273 mg/dL High 70 - 100 mg/dL [facility] Work Phone: Interpretation and review of laboratory results Abnormal [employer] Work Phone: Potassium [Moles/Vol] 4.3 mmol/L 3.5 - 5.1 mmol/L [employer] Work Phone: Sodium [Moles/Vol] 135 mmol/L 135 - 145 mmol/L [employer] Phone: Urea nitrogen (BldV) [Mass/Vol] 27 mg/dL High 7 - 20 mg/dL [facility] Phone: Test Performed by [facility], [address] [place] [id number] [employer] Work Phone: CBC Auto Differentialon 04-0 Absolute Baso # 0.0 10*3/uL 0.0 - 0.2 10*3/uL [employer] Work Phone: Absolute Neut # 6.3 10*3/uL 1.8 - 7.0 10*3/uL [employer] Work Phone: Basophils/100 WBC (Bld) 0.6 % 0.0 - 2.0 % [employer] Work Phone: Eosinophils (Bld) [#/Vol] 0.1 10*3/uL 0.0 - 0.5 10*3/uL [facility] Work Phone: Eosinophils/100 WBC (Bld) 1.5 % 1.0 - 6.0 % [facility] Work Phone: Granulocytes/100 WBC (Bld) 85.1 % High 40.0 - 80.0 % [facility] Work Phone: Hematocrit (Bld) [Volume fraction] 40.1 % 40.0 - 52.0 % [facility] Work Phone: Hemoglobin.gastrointesti nal spec 1 Ql (Stl) 14.3 g/dL 13.0 - 18.0 g/dL [facility] Work Phone: Interpretation and review of laboratory results Abnormal [employer] Work Phone: Lymphocytes (Bld) [#/Vol] 0.5 10*3/uL Low 1.0 - 4.3 10*3/uL [facility] Work Phone: Lymphocytes/100 WBC (Bld) 7.3 % Low 20.0 - 40.0 % [facility] Work Phone: MCH (RBC) [Entitic mass] 28.1 pg 26. 0 - 34.0 pg [facility] Work Phone: MCHC (RBC) [Mass/Vol] 35.6 % 32.0 - 36.0 % [facility] Work Phone: MCV (RBC) [Entitic vol] 79.1 fL Low 80.0 - 98.0 fL [facility] Work Phone: Monocytes (Bld) [#/Vol] 0.4 10*3/uL 0.0 - 0.8 10*3/uL [facility] Work Phone: Monocytes/100 WBC (Bld) 5.5 % 2.0 - 10.0 % [facility] Work Phone: Platelet distribution width (Bld) [Ratio] 15.6 % High 11.5 - 14.5 % [facility] Work Phone: Platelet mean volume (Bld) [Entitic vol] 8.1 fL 7.4 - 10.4 fL [employer] Work Phone: Platelets (Bld) [#/Vol] 121 10*3/uL Low 140 - 440 10*3/uL [facility] Work Phone: RBC (Bld) [#/Vol] 5.07 10*6/uL 4.40 - 5.9 0 10*6/uL [employer] Work Phone: WBC (Bld) [#/Vol] 7.4 10*3/uL 3.6 - 10.7 10*3/uL [employer] Work Phone: Test Performed by [facility], [address] [place], [place] [address] [employer] Work Phone: Troponin x1on 06-17-2020 Troponin I.cardiac [Mass/Vol] ng/mL 0.000 - 0.034 ng/mL [employer] Work Phone: Comment on above: . Test Performed by [facility], [address] [place], [place] [address] [employer] Work Phone: XR CHEST PORTABLEon 06-18-19 21 Brian, [facility] Incoming Radiology Results From [facility] - 06/17/2020 10:52 PM EDT [facility]: [id number] ACCESSION EXAM DATE/TIME PROCEDURE ORDERING PROVIDER [id number] 06/17/2020 22:46 EDT CR Chest Portable MD BRINK VIJAY CPT code 65829 Reason For Exam (CR Chest Portable) vomiting Report PORTABLE CHEST CLINICAL INDICATION: Vomiting TECHNIQUE: Portable AP COMPARISON: None FINDINGS: No focal consolidation or pulmonary edema. No pleural effusions or pneumothorax. The cardiac and mediastinal silhouettes are normal. The osseous structures are unremarkable. IMPRESSION: No focal consolidation or pulmonary edema. Report Dictated on --- Final --- Dictating Physician: MD TORRES KEVIN Signed Date and Time: 06/17/2020 10:51 pm Signed by: MD TORRES KEVIN Transcribed Date and Time: 06/17/2020 10:52 [facility] Work [facility]: Patient Name: MIRANDA RO [facility]#: [id number] Diagnostic Radiology ACCESSION EXAM DATE/TIME PROCEDURE ORDERING PROVIDER [id number] 06/17/2020 22:46 EDT CR Chest Portable MD BRINK VIJAY CPT code 65899 Reason For Exam (CR Chest Portable) vomiting Report PORTABLE CHEST CLINICAL INDICATION: Vomiting TECHNIQUE: Portable AP COMPARISON: None FINDINGS: No focal consolidation or pulmonary edema. No pleural effusions or pneumothorax. The cardiac and mediastinal silhouettes are normal. The osseous structures are unremarkable. IMPRESSION: No focal consolidation or pulmonary edema. Report Dictated on --- Final --- Dictating Physician: MD TORRES KEVIN Signed Date and Time: 06/17/2020 10:51 pm Signed by: MD TORRES KEVIN Transcribed Date and Time: 06/17/2020 10:52 [facility] Work Phone: Vital Signs Date Time Vital Sign Value Performing Clinician Marbella degroot 07-17-2024 11:07-0400 Body height 152.4 cm Christina Jim PA-C Work Phone: [facility] 07-17-2024 11:07-0400 Body mass index (BMI) [Ratio] 35.15 kg/m2 Christina Jim PA-C Work Phone: [facility] 07-17-2024 11:07-0400 Body weight 81.65 kg Christina Jim PA-C Work Phone: [facility] 07-17-2024 11:07-0400 Diastolic blood pressure 57 mm[Hg] Christina Jim PA-C Work Phone: [facility] 07-17-2024 11:07-0400 Heart rate 75 /min Christina Jim PA-C Work Phone: [facility] 07-17-2024 11:07-0400 Systolic blood pressure 103 mm[Hg] Christina Hernán [employer] Work Phone: [facility] 06-06-2024 16:30-0400 Body temperature 98.91 [degF] Tamar Hitchcock MD Work Phone: [facility] 06-06-2024 16:30-0400 Diastolic blood pressure 94 mm[Hg] Tamar Hitchcock MD Work Phone: [facility] 06-06-2024 16:30-0400 Heart rate 111 /min Tamar Hitchcock MD Work Phone: [facility] 06-06-2024 16:30-0400 Respiratory rate 16 /min Tamar Hitchcock MD Work Phone: [facility] 06-06-2024 16:30-0400 SaO2% (BldA) [Mass fraction] 95 % Tamar Hitchcock MD Work Phone: [facility] 06-06-2024 16:30-0400 Systolic blood pressure 161 mm[Hg] Tamar Hitchcock MD Work Phone: [facility] 06-04-2024 15:24-0400 Body mass index (BMI) [Ratio] 35.15 kg/m2 Tamar Hitchcock MD Work Phone: [facility] 06-04-2024 15:24-0400 Body weight 81.65 kg Tamar Hitchcock MD Work Phone: [facility] 05-30-2024 11:08-0400 Body temperature 96.6 [degF] Ivone Mckeonffey DO Work Phone: [facility] 05-30-2024 11:08-0400 Diastolic blood pressure 82 mm[Hg] Ivone Skiffey DO Work Phone: [facility] 05-30-2024 11:08-0400 Heart rate 111 /min Ivone Lindaffey DO Work Phone: [facility] 05-30-2024 11:08-0400 Respiratory rate 17 /min Ivone Peng DO Work Phone: [facility] 05-30-2024 11:08-0400 SaO2% (BldA) [Mass fraction] 96 % Ivone Peng DO Work Phone: [facility] 05-30-2024 11:08-0400 Systolic blood pressure 133 mm[Hg] Ivone Peng DO Work Phone: [facility] 05-30-2024 08:05-0400 Body height 152.4 cm Ivone Peng DO Work Phone: [facility] 05-26-2024 12:00-0400 Body mass index (BMI) [Ratio] 39.06 kg/m2 Ivone Peng DO Work Phone: [facility] 05-26-2024 12:00-0400 Body weight 90.72 kg Ivone Peng DO Work Phone: [facility] 08-15-2021 17:24-0400 Diastolic blood pressure 96 mm[Hg] Ruth Israel MD Work Phone: [facility] 08-15-2021 17:24-0400 Heart rate 92 /min Ruth Israel MD Work Phone: [facility] 08-15-2021 17:24-0400 Systolic blood pressure 179 mm[Hg] Ruth Israel MD Work Phone: [facility] 08-15-2021 17:09-0400 Respiratory rate 18 /min Ruth Israel MD Work Phone: [facility] 08-15-2021 17:09-0400 SaO2% (BldA) [Mass fraction] 97 % Ruth Israel MD Work Phone: [facility] 08-15-2021 15:34-0400 Body height 152.4 cm Ruth Israel MD Work Phone: [facility] 08-15-2021 15:34-0400 Body mass index (BMI) [Ratio] 41.99 kg/m2 Ruth Israel MD Work Phone: [facility] 08-15-2021 15:34-0400 Body weight 97.52 kg Ruth Israel MD Work Phone: [facility] 08-15-2021 15:00-0400 Body temperature 96.91 [degF] Ruth Israel MD Work Phone: [facility] 06-18-2020 11:18-0400 BP Diastolic 83 mm[Hg] Colton Adusumilli DEEPAKA Work Phone: 06-18-2020 11:18-0400 BP Systolic 123 mm[Hg] Colton Adusumilli DEEPAKA Work Phone: 06-18-2020 11:18-0400 Pulse (Heart Rate) 100 /min Colton Adusumilli DEEPAKA Work Phone: 06-18-2020 11:18-0400 Pulse Oximetry 94 % Colton Adusumilli [facility] Work Phone: 06-18-2020 11:18-0400 Respiratory Rate 16 /min Colton Adusumilli DEEPAKA Work Phone: 06-18-2020 11:00-0400 Body Temperature 99 [degF] Colton Adusumilli [facility] Work Phone: 06-18-2020 10:22-0400 BMI (Body Mass Index) 43.16 kg/m2 Colton Adusumilli [facility] Work Phone: 06-18-2020 10:22-0400 Body weight 100.25 kg Colton Adusumilli [facility] Work Phone: 06-18-2020 10:22-0400 Height 152.4 cm Colton Adusumilli [facility] Work Phone: Encounters Encounter Date Encounter Type Care Provider Facility Start: 11-18-2024 End: 11-18-2024 Telephone encounter Liseth Belle DO Work Phone: [facility] Start: 11-04-2024 ambulatory Lan Tyson lity:[facility] Start: 10-13-2024 ambulatory Lan Tyson lity:[facility] Start: 10-02-2024 End: 10-02-2024 Telephone encounter Liseth Belle DO Work Phone: [facility] [place] Start: 09-11-2024 ambulatory Lan Tyson lity:[facility] Start: 07-17-2024 End: 07-17-2024 ambulatory CHRISTINALUI FORTEVIS [facility] Start: 07-17-2024 End: 07-17-2024 Office outpatient visit 15 minutes [facility] Comment on above: 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 Comment on above: Results (Elevated [facility] tr) Start: 07-14-2024 ambulatory Lan Tyson lity:[facility] Start: 07-09-2024 End: 07-10-2024 Telephone encounter Liseth Belle DO Work Phone: [facility] Comment on above: Appointment Request Start: 07-02-2024 End: 07-14-2024 Telephone encounter Adela Johnson APRN - [facility] Work Phone: [facility] Central Scheduling Comment on above: Other (Central sched uling ) Start: 06-24-2024 End: 06-24-2024 ambulatory Jamila Mccloud PA-C Work Phone: [facility] Infectious Dis Comment on above: Prostate abscess (Pr imary Dx); Abscess, gluteal, right; Jhoan's gangrene; Fungal dermatitis; FPC current use of antibiotics; Drug rash Start: 06-23-2024 End: 06-23-2024 ambulatory Jamila Mccloud PA-C Work Phone: [facility] Infectious Dis Comment on above: Prostate abscess (Pr imary Dx); Abscess, gluteal, right; Jhoan's gangrene; Cellulitis of buttock; Polymicrobial bacterial infection; Fungal dermatitis Start: 06-20-2024 End: 06-20-2024 ambulatory Berenice Garber [employer] Work Phone: [facility] Infectious Disease - [place] Comment on above: Prostate abscess (Pr imary Dx); Abscess, gluteal, right; Jhoan's gangrene; Polymicrobial bacterial infection; FPC current use of antibiotics; Drug rash; Fungal dermatitis Start: 06-19-2024 End: 06-19-2024 ambulatory Berenice John Paul Jcarlos [employer] Work Phone: [facility]ious Disease - [place] Comment on above: Prostate abscess (Pr imary Dx); Abscess, gluteal, right; Jhoan's gangrene; Wound of left buttock, sequela; Polymicrobial bacterial infection; Necrotizing soft tissue infection; FPC current use of antibiotics Start: 06-18-2024 End: 06-18-2024 ambulatory Bethany Macdonald [employer] Work Phone: [facility]ious Disease - [place] Comment on above: Abscess, gluteal, ri ght (Primary Dx); Prostate abscess; Polymicrobial bacterial infection; vermin exterminator current use of antibiotics Start: 06-16-2024 End: 06-16-2024 ambulatory Bethany Macdonald [employer] Work Phone: [facility] - [place] Comment on above: Abscess, gluteal, ri ght (Primary Dx); Prostate abscess; Polymicrobial bacterial infection; FPC current use of antibiotics Start: 06-13-2024 End: 06-13-2024 ambulatory Bethany Macdonald [employer] Work Phone: [facility] Infectious Disease Marcio Taylor Comment on above: Abscess, gluteal, ri ght (Primary Dx); Prostate abscess; Polymicrobial bacterial infection; FPC current use of antibiotics Start: 06-12-2024 End: 06-12-2024 ambulatory Bethany Macdonald [employer] Work Phone: [facility] Disease - [place] Comment on above: Abscess, gluteal, ri ght (Primary Dx); Prostate abscess; Polymicrobial bacterial infection; FPC current use of antibiotics Start: 06-10-2024 End: 06-10-2024 ambulatory Bethany Macdonald [employer] Work Phone: [facility] - [place] Comment on above: Abscess, gluteal, ri ght (Primary Dx); Prostate abscess; Polymicrobial bacterial infection; Uncontrolled type 2 diabetes mellitus with hyperglycemia (HCC); vermin exterminator current use of antibiotics Start: 06-09-2024 End: 06-09-2024 ambulatory Bethany Macdonald [employer] Work Phone: [facility] - [place] Comment on above: Jhoan's gangrene (Primary Dx); Polymicrobial bacterial infection; Uncontrolled type 2 diabetes mellitus with hyperglycemia (HCC); vermin exterminator current use of antibiotics Start: 06-04-2024 End: 06-06-2024 Evaluation and management of inpatient Tamar Hitchcock MD Work Phone: [facility] Comment on above: Pelvic abscess in devang funk (CMS/HCC) (HCC) (Primary Dx); Wound of left buttock, subsequent encounter Start: 05-21-2024 End: 05-30-2024 Evaluation and management of inpatient Ivone Childers Lindawoo Work Phone: [facility] PCU 2E Start: 05-21-2024 End: 05-26-2024 Telephone encounter Triston Bal MD Work Phone: [facility] - [place] Comment on above: Post-op Follow-up Start: 10-20-2022 ambulatory Dayana Liu RN [facility] Start: 10-20-2022 Coordination of care plan Dayana steele RN [facility] Comment on above: Care Coordination Ou treach; Diabetes Start: 08-15-2021 End: 08-15-2021 Emergency department patient visit Ruth Israel MD Work Phone: [facility] ED Comment on above: Chavarria's palsy (Primar y Dx); Dermatitis; Essential hypertension Start: 09-06-2020 End: 09-06-2020 Subsequent hospital visit by physician Carrington Albert MD Work Phone: [facility] Dept Start: 07-15-2020 End: 07-15-2020 Subsequent hospital visit by physician Lexie Montez MD Work Phone: [facility] Dept Start: 06-17-2020 End: 06-18-2020 Emergency department patient visit Colton Brink Work Phone: [facility] Comment on above: Upper GI bleed (Prim geovanni Dx); Hyperlipidemia, unspecified hyperlipidemia type; Type 2 diabetes mellitus with hyperglycemia, with long-term current use of insulin (HCC); Unable to care for self Start: 04-15-2020 End: 04-15-2020 Subsequent hospital visit by physician Lexie Montez Work Phone: [facility] Start: 03-15-2020 End: 03-15-2020 Subsequent hospital visit by physician Lexie Montez Work Phone: [facility] Start: 01-20-2020 End: 01-20-2020 Subsequent hospital visit by physician Lexie Montez Work Phone[facility] Start: 01-06-2020 End: 01-06-2020 Subsequent hospital visit by physician Angelita Rick [facility] Dept Start: 01-01-2020 End: 01-01-2020 Subsequent hospital visit by physician Lexie Montez Work Phone: [facility] Procedures Date Procedure Procedure Detail Performing Clinician Start: 07-17-2024 Follow-up visit CHRISTINA JIM Start: 06-06-2024 Glucose quantitative blood xcpt reagent strip Dahlia Funez MD Work Phone: Start: 06-06-2024 Glucose quantitative blood xcpt reagent strip Dahlia Funez MD Work Phone: Start: 06-06-2024 Glucose quantitative blood xcpt reagent strip Dahlia Funez MD Work Phone: Start: 06-06-2024 Comprehensive metabo lic panel Miranda Mason MD Work Phone: Start: 06-06-2024 Drug screen quantita tive vancomycin Miranda Mason MD Work Phone: Start: 06-05-2024 Glucose quantitative blood xcpt reagent strip Dahlia Funez MD Work Phone: Start: 06-05-2024 Drug screen quantita tive vancomycin Miranda Mason MD Work Phone: Start: 06-05-2024 Glucose quantitative blood xcpt reagent strip Dahlia Funez MD Work Phone: Start: 06-05-2024 Image-guide fluid co llxn drainage cath visc perq Miranda Mason MD Work Phone: Start: 06-05-2024 Cul bact xcpt urine blood/stool aerobic isol Dahlia Funez MD Work Phone: Start: 06-05-2024 End: 06-05-2024 Prothrombin time Miranda Mason MD Work Phone: Start: 06-05-2024 Comprehensive metabo lic panel Miranda Mason MD Work Phone: Start: 06-05-2024 Glucose quantitative blood xcpt reagent strip Dahlia Funez MD Work Phone: Start: 06-04-2024 Ct abdomen & pelvis w/contrast material Tamar Hitchcock MD Work Phone: Start: 06-04-2024 Bacteria identified in Blood by Culture Tamar Hitchcock MD Work Phone: Start: 06-04-2024 Comprehensive metabo lic panel Tamar Hitchcock MD Work Phone: Start: 05-30-2024 Glucose quantitative blood xcpt reagent strip Megan Mercado MD Work Phone: Start: 05-30-2024 Glucose quantitative blood xcpt reagent strip Megan Mercado MD Work Phone: Start: 05-30-2024 Comprehensive metabo lic panel Sandee Reeder MD Work Phone: Start: 05-29-2024 Glucose quantitative blood xcpt reagent strip Megan Mercado MD Work Phone: Start: 05-29-2024 Glucose quantitative blood xcpt reagent strip Megan Mercado MD Work Phone: Start: 05-29-2024 Glucose quantitative blood xcpt reagent strip Megan Mercado MD Work Phone: Start: 05-29-2024 Glucose quantitative blood xcpt reagent strip Megan Mercado MD Work Phone: Start: 05-29-2024 End: 05-29-2024 Comprehensive metabolic panel Sandee Reeder MD Work Phone: Start: 05-28-2024 Glucose quantitative blood xcpt reagent strip Megan Mercado MD Work Phone: Start: 05-28-2024 End: 05-28-2024 Glucose quantitative blood xcpt reagent strip Megan Mercado MD Work Phone: Start: 05-28-2024 Glucose quantitative blood xcpt reagent strip Megan Mercado MD Work Phone: Start: 05-28-2024 Glucose quantitative blood xcpt reagent strip Megan Mercado MD Work Phone: Start: 05-28-2024 Glucose quantitative blood xcpt reagent strip Megan Mercado MD Work Phone: Start: 05-28-2024 Comprehensive metabo lic panel Sadnee Reeder MD Work Phone: Start: 05-28-2024 Glucose quantitative blood xcpt reagent strip Megan Mercado MD Work Phone: Start: 05-27-2024 Glucose quantitative blood xcpt reagent strip Megan Mercado MD Work Phone: Start: 05-27-2024 Glucose quantitative blood xcpt reagent strip Meagn Mercado MD Work Phone: Start: 05-27-2024 Glucose quantitative blood xcpt reagent strip Megan Mercado MD Work Phone: Start: 05-27-2024 IR CVC PICC PLACEMENT C george Reeder MD Work Phone: Start: 05-27-2024 Glucose quantitative blood xcpt reagent strip Megan Mercado MD Work Phone: Start: 05-27-2024 Glucose quantitative blood xcpt reagent strip Megan Mercado MD Work Phone: Start: 05-27-2024 Comprehensive metabo lic panel Sandee Reeder MD Work Phone: Start: 05-27-2024 Glucose quantitative blood xcpt reagent strip Megan Mercado MD Work Phone: Start: 05-26-2024 Glucose quantitative blood xcpt reagent strip Megan Mercado MD Work Phone: Start: 05-26-2024 Glucose quantitative blood xcpt reagent strip Megan Mercado MD Work Phone: Start: 05-26-2024 Glucose quantitative blood xcpt reagent strip Megan Mercado MD Work Phone: Start: 05-26-2024 Glucose quantitative blood xcpt reagent strip Megan Mercado MD Work Phone: Start: 05-26-2024 End: 05-26-2024 Dbrdmt skn subq t/m/f necro infctj vesna/li Mercado MD Work Phone: Start: 05-26-2024 Glucose quantitative blood xcpt reagent strip Megan Mercado MD Work Phone: Start: 05-26-2024 End: 05-26-2024 Comprehensive metabolic panel Sandee Reeder MD Work Phone: Start: 05-25-2024 Glucose quantitative blood xcpt reagent strip Megan Mercado MD Work Phone: Start: 05-25-2024 Glucose quantitative blood xcpt reagent strip Megan Mercado MD Work Phone: Start: 05-25-2024 Glucose quantitative blood xcpt reagent strip Megan Mercado MD Work Phone: Start: 05-25-2024 Glucose quantitative blood xcpt reagent strip Megan Mercado MD Work Phone: Start: 05-25-2024 End: 05-25-2024 Comprehensive metabolic panel Sandee Reeder MD Work Phone: Start: 05-25-2024 Manual differential performed [Presence] in Blood Gabriel Leyva MD Work Phone: Start: 05-24-2024 Glucose quantitative blood xcpt reagent strip Megan Mercado MD Work Phone: Start: 05-24-2024 Glucose quantitative blood xcpt reagent strip Megan Mercado MD Work Phone: Start: 05-24-2024 Glucose quantitative blood xcpt reagent strip Megan Meracdo MD Work Phone: Start: 05-24-2024 Glucose quantitative blood xcpt reagent strip Megan Mercado MD Work Phone: Start: 05-24-2024 Glucose quantitative blood xcpt reagent strip Megan Mercado MD Work Phone: Start: 05-24-2024 Glucose quantitative blood xcpt reagent strip Megan Mercado MD Work Phone: Start: 05-24-2024 Basic metabolic pane l calcium total Gabriel Leyva MD Work Phone: Start: 05-24-2024 Manual Differential panel - Blood Gabriel Leyva MD Work Phone: Start: 05-23-2024 Glucose quantitative blood xcpt reagent strip Megan Mercado MD Work Phone: Start: 05-23-2024 Glucose quantitative blood xcpt reagent strip Megan Mercado MD Work Phone: Start: 05-23-2024 Glucose quantitative blood xcpt reagent strip Megan Mercado MD Work Phone: Start: 05-23-2024 AEROBIC AND ANAEROBI C CULTURE WITH STAIN Megan Mercado MD Work Phone: Start: 05-23-2024 Culture bacterial an y source anaerobic iso&id Megan Mercado MD Work Phone: Start: 05-23-2024 End: 05-23-2024 DEBRIDEMENT, GENITALIA AND PERINEUM Megan Mercado MD Work Phone: Start: 05-23-2024 End: 05-23-2024 Revj colostomy smpl rls supfc scar spx Megan Mercado MD Work Phone: Start: 05-23-2024 Glucose quantitative blood xcpt reagent strip Megan Mercado MD Work Phone: Start: 05-23-2024 Glucose quantitative blood xcpt reagent strip Megan Mercado MD Work Phone: Start: 05-23-2024 Antibody identificat ion platelet antibodies Sandee Reeder MD Work Phone: Start: 05-23-2024 Glucose quantitative blood xcpt reagent strip Megan Mercado MD Work Phone: Start: 05-23-2024 Antibody screen CHRISTINA JIM Comment on above: Performed By: #### L [id number] ####Marble Installer: DEANNE CORTEZ ([id number])[facility] ([facility])[address] Start: 05-23-2024 End: 05-23-2024 Basic metabolic panel calcium total Sandee Reeder MD Work Phone: Start: 05-23-2024 Blood typing serologic abo Megan Mercado MD Work Phone: Start: 05-23-2024 Manual Differential panel - Blood Sandee Reeder MD Work Phone: Start: 05-22-2024 Glucose quantitative blood xcpt reagent strip Megan Mercado MD Work Phone: Start: 05-22-2024 Glucose quantitative blood xcpt reagent strip Megan Mercado MD Work Phone: Start: 05-22-2024 End: 05-22-2024 Blood count complete auto&auto difrntl wbc Megan Mercado MD Work Phone: Start: 05-22-2024 Manual differential performed [Presence] in Blood Megan Mercado MD Work Phone: Start: 05-22-2024 Glucose quantitative blood xcpt reagent strip Megan Mercado MD Work Phone: Start: 05-22-2024 Drug screen quantita tive vancomycin Yosvany Rosenthal Botsch [employer] Work Phone: Start: 05-22-2024 End: 05-22-2024 Basic metabolic panel calcium total Yosvany Galo Botsch [employer] Work Phone: Start: 05-22-2024 Blood gases any comb ination ph pco2 po2 co2 hco3 Yosvany Galo Botsch [employer] Work Phone: Start: 05-22-2024 Glucose quantitative blood xcpt reagent strip Megan Mercado MD Work Phone: Start: 05-22-2024 End: 05-22-2024 Basic metabolic panel calcium total Yosvany Rosenthal Botsch [employer] Work Phone: Start: 05-22-2024 Blood gases any comb ination ph pco2 po2 co2 hco3 Yosvany Rosenthal Botsch [employer] Work Phone: Start: 05-22-2024 End: 05-22-2024 Assay of lactate Ivone Camargo ey DO Work Phone: Start: 05-22-2024 Blood gases any comb ination ph pco2 po2 co2 hco3 Yosvany Rosenthal Botsch [employer] Work Phone: Start: 05-22-2024 End: 05-22-2024 Basic metabolic panel calcium total Yosvany Aquino [employer] Work Phone: Start: 05-21-2024 Culture bacterial quanttative colony count urine Ivone Peng DO Work Phone: Start: 05-21-2024 Urinalysis complete panel - Urine Ivone Peng DO Work Phone: Start: 05-21-2024 Manual Differential panel - Blood Megan Mercado MD Work Phone: Start: 05-21-2024 End: 05-21-2024 Basic metabolic panel calcium total Yosvany Aquino [employer] Work Phone: Start: 05-21-2024 Blood gases any comb ination ph pco2 po2 co2 hco3 Yosvany Aquino [employer] - [employer] Work Phone: Start: 05-21-2024 C-reactive protein Rubén Canales MD Work Phone: Start: 05-21-2024 End: 05-21-2024 Glucose quantitative blood xcpt reagent strip Megan Mercado MD Work Phone: Start: 05-21-2024 FL GUIDANCE OR USE O NLY - NON-RESULTABLE Triston Bal MD Work Phone: Start: 05-21-2024 End: 05-21-2024 AEROBIC AND ANAEROBIC CULTURE WITH STAIN Megan Mercado MD Work Phone: Start: 05-21-2024 End: 05-21-2024 Culture bacterial any source anaerobic iso&id Megan Mercado MD Work Phone: Start: 05-21-2024 End: 05-21-2024 Dbrdmt skn subq t/m/f necro infctj gent/abdl Megan Mercado MD Work Phone: Start: 05-21-2024 Ct abdomen & pelvis w/contrast material Ivone Peng DO Work Phone: Start: 05-21-2024 AEROBIC AND ANAEROBI C CULTURE WITH STAIN Ivone Peng DO Work Phone: Start: 05-21-2024 Culture bacterial an y source anaerobic iso&id Ivone Peng DO Work Phone: Start: 05-21-2024 End: 05-21-2024 Bacteria identified in Blood by Culture Ivone Peng DO Work Phone: Start: 05-21-2024 Comprehensive metabo lic panel Ivone Peng DO Work Phone: Start: 05-21-2024 Manual differential performed [Presence] in Blood Ivone Peng DO Work Phone: Start: 05-21-2024 PATHOLOGY REVIEW Ivone Peng DO Work Phone: Start: 05-21-2024 Ecg routine ecg w/le ast 12 lds i&r only Ivone Peng DO Work Phone: Start: 08-15-2021 Basic metabolic pane l calcium total Ruth Israel MD Work Phone: Start: 06-18-2020 Gluc bld gluc mntr d ev cleared fda spec home use Aretha Moctezuma Work Phone: Start: 06-18-2020 [facility] ENDOSCOPY REPORT 3m Scanning Start: 06-18-2020 Gluc bld gluc mntr d ev cleared fda spec home use Colton Brink Work Phone: Start: 06-18-2020 Blood count complete auto&auto difrntl wbc Edvin Guerrier Arauz Work Phone: Start: 06-18-2020 Blood count hemoglobin Edvin P Arauz Work Phone: Start: 06-18-2020 Blood typing serologic abo Edvin P Arauz Work Phone: Start: 06-17-2020 Blood count complete auto&auto difrntl wbc Coltonermias Brink Work Phone: Start: 06-17-2020 Assay of troponin quantitative Colton Brink Work Phone: Start: 06-17-2020 Basic metabolic pane l calcium total Colton Brink Work Phone: Start: 06-17-2020 Ecg routine ecg w/le ast 12 lds w/i&r Colton Brink Work Phone: Start: 06-17-2020 Radiologic exam ches t single view Colton Brink Work Phone: Start: 01-01-2020 Lipid 1996 panel - S melanie or Plasma Dayana Liu RN Plan of Treatment Date Care Activity Detail Author Start: 2054 RSV Immunization for Adults (1 - 1-dose 75+ series) RSV Immunization for Adults (1 - 1-dose 75+ series) [facility] Start: 2054 [facility] Start: 01-03-2044 Pneumococcal 0-64 years Vaccine (2 of 2 - PPSV23) Pneumococcal 0-64 years Vaccine (2 of 2 - PPSV23) [facility] Work Phone: Start: 12-31-2029 DTaP/Tdap/Td vaccine (2 - Td or Tdap) DTaP/Tdap/Td vaccine (2 - Td or Tdap) [facility] Start: 12-31-2029 DTaP/Tdap/Td vaccine (2 - Td) DTaP/Tdap/Td vaccine (2 - Td) [place] Start: 12-31-2029 DTaP/Tdap/Td Vaccines (2 - Td or Tdap) DTaP/Tdap/Td Vaccines (2 - Td or Tdap) [facility] Start: 12-31-2029 [facility] Start: 2029 Zoster Vaccines (1 of 2) Zoster Vaccines (1 of 2) [facility] Start: 2029 [facility] Start: 07-07-2025 Diabetes: Estimated Glomerular Filtration Rate for Kidney Health Diabetes: Estimated Glomerular Filtration Rate for Kidney Health [facility] Start: 06-23-2025 Diabetes: Estimated Glomerular Filtration Rate for Kidney Health Diabetes: Estimated Glomerular Filtration Rate for Kidney Health [facility] Start: 06-20-2025 Diabetes: Estimated Glomerular Filtration Rate for Kidney Health Diabetes: Estimated Glomerular Filtration Rate for Kidney Health [facility] Start: 06-16-2025 Diabetes: Estimated Glomerular Filtration Rate for Kidney Health Diabetes: Estimated Glomerular Filtration Rate for Kidney Health [facility] Start: 06-13-2025 Diabetes: Estimated Glomerular Filtration Rate for Kidney Health Diabetes: Estimated Glomerular Filtration Rate for Kidney Health [facility] Start: 06-09-2025 Diabetes: Estimated Glomerular Filtration Rate for Kidney Health Diabetes: Estimated Glomerular Filtration Rate for Kidney Health [facility] Start: 06-06-2025 Diabetes: Estimated Glomerular Filtration Rate for Kidney Health Diabetes: Estimated Glomerular Filtration Rate for Kidney Health [facility] Start: 06-04-2025 Hemoglobin A1c measurement Diabetes: Hemoglobin A1C [facility] Start: 05-30-2025 [facility] Start: 05-26-2025 Diabetes: Estimated Glomerular Filtration Rate for Kidney Health Diabetes: Estimated Glomerular Filtration Rate for Kidney Health [facility] Start: 05-21-2025 Hemoglobin A1c measurement [facility] Start: 12-05-2024 End: 12-05-2024 Patient encounter procedure 12/05/2024 9:00 AM EDT [facility] [place] [address] [place] [id number] Liseth Belle DO [address] [place] [address] [facility] Start: 12-04-2024 End: 12-04-2024 Patient encounter procedure 12/04/2024 9:30 AM EDT [facility] [place] [address] [place] [address] Citlali Hammond, [employer] [address] [place] [address] [facility] Start: 11-10-2024 COVID-19 Vaccine ( season) COVID-19 Vaccine ( season) [facility] Start: 11-10-2024 Influenza vaccination [facility] Start: 10-17-2024 End: 10-17-2024 Patient encounter procedure 10/17/2024 9:00 AM EDT Office Visit [facility] [place] [address] [place] [address] Liseth Belle DO [address] [place] [address] [facility] [place] Start: 07-17-2024 End: 07-17-2024 Patient encounter procedure 07/17/2024 11:00 AM EDT Office Visit [facility] [place] [address] [place] [address] Christina Jim PA-C [address] [place] [address] [facility] [place] Start: 07-16-2024 End: 07-16-2024 Patient encounter procedure 07/16/2024 1:30 PM EDT Office Visit [facility] Infectious Disease - [place] [address] [place] [id number] Berenice Garber, [employer] [address] [place] [address] [facility] [place] Start: 07-15-2024 End: 07-15-2024 Patient encounter procedure 07/15/2024 1:45 PM EDT Appointment [facility] - [place] [address] [place] [address] Carlota Richardson, [employer] - [employer] [address] [place] [address] [facility] - [place] Start: 07-03-2024 End: 07-03-2024 ambulatory [facility] [place] Start: 07-03-2024 End: 07-03-2024 Patient encounter procedure 07/03/2024 3:00 PM EDT [facility] [place] [address] [place] [id number] Liseth Belle DO [address] [place], [place] [id number] [facility] [place] Start: 06-12-2024 End: 06-06-2025 CT Abdomen and Pelvis W contrast IV CT abdomen pelvis w contrast Imaging Routine Pelvic abscess in male (CMS/HCC) (HCC) Expected: 06/12/2024, Expires: 06/06/2025 [facility] Work Phone: Comment on above: Expected: 06/12/2024, Expires: Start: 06-12-2024 End: 06-12-2024 Patient encounter procedure 06/12/2024 11:00 AM EDT Office Visit [facility] - [place] [address] [place] [address] Jeremiah Virk MD [address] [place] [address] [facility] [place] Start: 06-02-2024 End: 06-02-2024 Clinical Support [facility] Start: 11-11-2023 COVID-19 Vaccine ( season) COVID-19 Vaccine ( season) [facility] Start: 11-11-2023 COVID-19 Vaccine ( season) COVID-19 Vaccine ( season) [facility] Start: 11-11-2023 Influenza vaccination Influenza Vaccine (#1) [facility] Start: 11-11-2023 [facility] Start: 11-10-2022 Influenza vaccination Influenza Vaccine (#1) [facility] Start: 02-17-2022 Glaucoma screening Diabetes: Retinopathy Screening [facility] Start: 11-10-2021 Influenza vaccination Flu vaccine (Season Ended) [facility] Start: 10-14-2021 Hemoglobin A1c measurement Diabetes: Hemoglobin A1C [facility] Start: 09-06-2021 Diabetic retinal exam Diabetic retinal exam [facility] Start: 09-06-2021 Glaucoma screening [facility] Start: 06-18-2021 Creatinine measurement Creatinine monitoring [facility] Work Phone: Start: 06-18-2021 Potassium monitoring [facility] Work Phone: Start: 04-15-2021 Depression Screen Depression Screen [facility] Start: 01-27-2021 Diabetic retinal exam Diabetic retinal exam [facility] [place] Start: 01-14-2021 Hemoglobin A1c measurement A1C test (Diabetic or Prediabetic) [facility] Start: 12-31-2020 Creatinine measurement [facility] [place] [place] Start: 12-31-2020 Diabetes: Urine Albumin-Creatinine Ratio for Kidney Health Diabetes: Urine Albumin-Creatinine Ratio for Kidney Health [facility] Start: 12-31-2020 Diabetic foot examination Diabetic foot exam [facility] Start: 12-31-2020 Diabetic microalbuminuria test Diabetic microalbuminuria test [place] Start: 12-31-2020 Diabetic retinal exam Diabetic retinal exam [place], [place] Start: 12-31-2020 Lipid panel [facility] Start: 12-31-2020 Pneumococcal 0-64 years Vaccine (2 - PCV) Pneumococcal 0-64 years Vaccine (2 - PCV) [facility] Start: 12-31-2020 Pneumococcal Vaccine: Pediatrics (0 to 5 Years) and At-Risk Patients (6 to 49 Years) (2 of 2 - PCV) Pneumococcal Vaccine: Pediatrics (0 to 5 Years) and At-Risk Patients (6 to 49 Years) (2 of 2 - PCV) [facility] Start: 12-31-2020 Pneumococcal Vaccine: Pediatrics (0 to 5 Years) and At-Risk Patients (6 to 64 Years) (2 - PCV) Pneumococcal Vaccine: Pediatrics (0 to 5 Years) and At-Risk Patients (6 to 64 Years) (2 - PCV) [facility] Start: 12-31-2020 Potassium monitoring Potassium monitoring [facility] [place] Start: 12-31-2020 Urine screening for protein Diabetic microalbuminuria test [facility] Start: 12-31-2020 [facility] Start: 10-15-2020 Hemoglobin A1c measurement A1C test (Diabetic or Prediabetic) [facility] Work Phone: Start: 10-08-2020 End: 10-08-2020 Patient encounter procedure 10/08/2020 Office Visit Family Medicine Eric Sun MD [address] [place] [address] [phone] [facility] Start: 07-19-2020 End: 07-19-2020 ambulatory 07/19/2020 Virtual Visit Gastroenterology Dorys Field [employer] [address] [place] [address] [phone] [facility] Start: 07-15-2020 End: 07-15-2020 Office Visit 07/15/2020 Office Visit Family Angelita Joel MD [address] [place] [address] [phone] [facility] Start: 07-13-2020 HbA1c (Bld) [Mass fraction] A1C test (Diabetic or Prediabetic) [place] Start: 07-13-2020 End: 07-13-2020 Office Visit 07/13/2020 Office Visit Family Angelita Joel MD [address] [place] [address] [phone] [facility] Start: 04-15-2020 End: 04-15-2020 Office Visit 04/15/2020 Office Visit Family Angelita Joel MD [address] [place] [address] [phone] [facility] Start: 04-02-2020 HbA1c (Bld) [Mass fraction] A1C test (Diabetic or Prediabetic) [place] Start: 02-09-2020 End: 02-09-2020 Office Visit [facility] Start: 01-20-2020 End: 01-20-2020 Care Coordination 01/20/2020 Care Coordination [facility] Start: 2020 End: 2020 Care Coordination 2020 Care Coordination [facility] Start: 06-23-2019 Annual Wellness Visit (AWV) Annual Wellness Visit (AWV) [place] Start: 12-04-2015 Creatinine measurement Creatinine monitoring [place], [place] Start: 12-04-2015 Lipid panel Lipid [place] Start: 12-04-2015 Potassium monitoring Potassium monitoring [place] Start: 1998 Hepatitis B vaccine (1 of 3 - Risk 3-dose series) Hepatitis B vaccine (1 of 3 - Risk 3-dose series) [facility] Start: 1998 Hepatitis B Vaccines (1 of 3 - 19+ 3-dose series) Hepatitis B Vaccines (1 of 3 - 19+ 3-dose series) [facility] Start: 1998 [facility] Start: 1997 Diabetic microalbuminuria test Diabetic microalbuminuria test [place] Start: 1995 COVID-19 Vaccine (1) COVID-19 Vaccine (1) [facility] Work Phone: Start: 1994 HIV screening HIV screen [place], [place] Start: 1991 COVID-19 Vaccine (1) COVID-19 Vaccine (1) [facility] Work Phone: Start: 1991 Depression Screening Depression Screening [facility] Start: 1991 [facility] Start: 1989 Diabetic foot examination [facility] Start: 1989 Diabetic retinal exam Diabetic retinal exam [place], [place] Start: 1989 Preventive dental service [facility] Start: 01-03-1984 COVID-19 Vaccine (1) COVID-19 Vaccine (1) [facility] Start: 01-03-1980 MMR Vaccines (1 of 1 - Standard series) MMR Vaccines (1 of 1 - Standard series) [facility] Start: 01-03-1980 [facility] Start: 1979 COVID-19 Vaccine (#1) COVID-19 Vaccine (#1) [facility] Start: 1979 Hepatitis B Vaccines (1 of 3 - 3-dose series) Hepatitis B Vaccines (1 of 3 - 3-dose series) [facility] Start: 1979 Hepatitis C screening Hepatitis C screen [place], [place] Start: 1979 Screening for malignant neoplasm of colon [facility] End: 06-05-2024 Aerobic and Anaerobic Culture with Stain [facility] Work Phone: Comment on above: Once (Lab) for 1 Occurrences starting until 06/05/2024 End: 06-04-2024 Bacteria identified in Blood by Culture [facility] Work Phone: Comment on above: STAT (Lab) for 1 Occurrences starting until 06/04/2024 Bacteria identified in Unspecified specimen by Aerobe culture Aerobic culture with stain Microbiology Routine 06/05/2024 1:32 PM EDT [facility] End: 06-05-2024 Bacteria identified in Unspecified specimen by Anaerobe culture [facility] Comment on above: Once for 1 Occurrences starting 06/06/19 until 06/05/2024 CBC auto differential CBC auto d ifferential Lab Routine Daily until discontinued starting 06/19/2020 [employer] Work Phone: Comment on above: Daily until discontinued starting 2020 Comprehensive Metabo lic Panel w/ Reflex to MG Comprehensive Metabolic Panel w/ Reflex to MG Lab Routine Daily until discontinued starting 06/18/2020, 1 completed [employer] Work Phone: Comment on above: Daily until discontinued starting 2020, 1 completed EKG 12 Lead - Chest Pain EKG 12 Lead - Chest Pain ECG STAT 06/17/2020 10:37 PM EDT [employer] Work Phone: End: 06-25-2020 Hemoglobin and hematocrit, blood Hemoglobin and hematocrit, blood Lab Routine Every 6 Hours (Lab) for 7 Days starting 06/18/2020 until 06/25/2020, 1 completed [employer] Work Phone: Comment on above: Every 6 Hours (Lab) for 7 Days starting 06/18/2020 until 06/25/2020, 1 completed Oxygen therapy [[facility] Data Set] Initiate Oxygen Therapy Protocol Respiratory Care Routine Daily until discontinued starting 06/18/2020 [employer] Work Phone: Comment on above: Daily until discontinued starting 2020 End: 06-25-2020 POCT Glucose POCT Glucose Point of Care Testing Routine Every 6 Hours (Lab) for 7 Days starting 06/18/2020 until 06/25/2020 [employer] Work Phone: Comment on above: Every 6 Hours (Lab) for 7 Days starting 06/18/2020 until 06/25/2020 POCT Glucose POCT Glucose Poi nt of Care Testing STAT As Needed until discontinued starting 06/18/2020 [facility] Work Phone: Comment on above: As Needed until discontinued starting Protime-INR Protime-INR Lab Routine Daily until discontinued starting 06/19/2020 [facility] Work Phone: Comment on above: Daily until discontinued starting 2020 Immunizations Immunization Date Immunization Notes Care Provider Fa [facility] 01-01-2020 influenza, injectabl e, quadrivalent, preservative free [facility] 01-01-2020 pneumococcal polysaccharide vaccine, 23 valent [facility] 01-01-2020 tetanus toxoid, redu marbella diphtheria toxoid, and acellular pertussis vaccine, adsorbed [facility] 01-01-2020 Ivone Mckeonwoo DO Work Phone: [facility] 01-01-2020 influenza virus vaccine, unspecified formulation Dayana Liu RN [facility] 12-27-2016 influenza, injectabl e, quadrivalent, preservative free Lexie Montez [facility] 12-27-2016 Ivone Danish DO Work Phone: [facility] 01-19-2014 Influenza Vaccine, unspecified formulation Lexie Montez [facility] NEGATED: Highlighted row has not occurred!06-05-2024 influenza, injectable, madin napoleon canine kidney, preservative free Tamar Hitchcock MD Work Phone: [facility] Comment on above: Deferred: Patient Re fused Payers Date Payer Category Payer Medicare [id number] 2024 Self-pay 2017 Medicaid [id number] 2014 Medicaid [id number]. [id number] 2014 Medicare [id number] 2014 Medicare [id number] Unknown [id number] Unknown [id number] Unknown [id number] Social History Date Type Detail Facility Start: 01-01-2020 End: 09-06-2020 Tobacco smoking status AZIS Never smoker [facility] Start: 01-01-2020 End: 09-06-2020 Tobacco use and exposure Never used [place] Start: 01-01-2020 End: 06-08-2024 Alcohol intake Current non-drinker of alcohol (finding) [place] Start: 01-01-2020 History SDOH Financial 5 [place] Start: 01-01-2020 History SDOH Food Worry 1 [place] Start: 01-01-2020 History SDOH Transpo rt Med 2 [place] Start: 1979 Sex Assigned At Not on file [place], [place] Start: 08-05-2021 End: 08-15-2021 Exposure to SARS-CoV-2 (event) Not sure [facility] Work Phone: Start: 09-06-2020 End: 05-21-2024 Alcohol intake [facility] Work Phone: Start: 08-29-2021 End: 05-21-2024 Tobacco use panel [facility] How often do you nee d to have someone help you when you read instructions, pamphlets, or other written material from your doctor or pharmacy [SILS] Patient declines to respond [facility] Has the [employer], [employer], Workday, or water company threatened to shut off services in your home in past 12Mo No [facility] How often to you hav e a drink containing alcohol? Monthly or less [facility] How many standard dr inks containing alcohol do you have on a typical day? 1 or 2 [facility] How often do you hav e 6 or more drinks on 1 occasion? Never [facility] Do you feel stress - tense, restless, nervous, or anxious, or unable to sleep at night because your mind is troubled all the time - these days [OSQ] Only a little [facility] (I/We) worried wheth er (my/our) food would run out before (I/we) got money to buy more. Never true [facility] Start: 10-10-2021 Sex Male (finding) [facility] Medical Equipment Procedure Code Equipment Code Equipment Origin al Text Equipment Identifier Dates 1 each by In Vit ro route daily Indications: Type 2 Diabetes Dispense True Metrix test strips [id number] Start: 01-06-2020 1 each by Does n ot apply route daily Indications: Type 2 Diabetes Dispense [employer] lancets [id number] Start: 01-06-2020 1 each by In Vit ro route daily Indications: Type 2 Diabetes Dispense [employer] test strips [id number] Start: 01-07-2020 End: 02-06-2020 1 each by Does n ot apply route daily Indications: Type 2 Diabetes Dispense [employer] lancets [id number] Start: 01-07-2020 End: 04-06-2020 1 each by In Vit ro route daily Indications: Type 2 Diabetes Dispense True [employer] test strips [id number] Start: 05-13-2020 1 each by Does n ot apply route daily Indications: Type 2 Diabetes Dispense [employer] lancets [id number] Start: 05-13-2020 End: 08-11-2020 1 each by Does n ot apply route daily Indications: Type 2 Diabetes One pen needle for insulin pen injection daily [id number] Start: 04-20-2020 End: 06-18-2020 1 each by In Vit ro route daily Indications: Type 2 Diabetes Dispense True Metrix test strips [id number] Start: 07-15-2020 End: 08-14-2020 1 each by In Vit ro route daily Indications: Type 2 Diabetes Dispense [employer] test strips [id number] Start: 07-20-2020 1 each by In Vit ro route daily Indications: Type 2 Diabetes Dispense True [employer] test strips [id number] Start: 10-08-2020 Goals Date Patient Goal Desired Activity /State Comment on above: Eat 4 carbohydrate c hoices per meal and follow portion size Comment on above: Formatting of this n ote might be different from the original. He will ride exercise bike twice daily starting with 5 minutes on day one and adding 1 minute per day to reach goal of 30 minutes Barriers: lack of motivation and lack of support Plan for overcoming my barriers: policy writer will create and send him an exercise log sheet with number of minutes to ride each calendar day Confidence: 07/19 Anticipated Goal Completion Date:07-18-20 Clinical Notes 08-15-2021 to 11-18-2024 Telephone Encounter - Rosana Delaney - 11/18/2024 10:19 AM EDTTelephone Encounter - Rosana Delaney - 11/18/2024 10:19 AM EDTTelephone Encounter - Rosana Delaney - 10/02/2024 4:05 PM EDTInstructions Note Date & Type Note Facility 11-18-2024 Telephone encounter Note Spoke to pt Dr Belle out of office 12/05 at 9am and need to reschedule the appt. Moved pt to 12/04/24 at 930am in [place] with [employer]. Mailed letter also with information on new appt. [facility] 11-18-2024 Miscellaneous Notes Spoke to pt Dr Belle out of office 12/05 at 9am and need to reschedule the appt. Moved pt to 12/04/24 at 930am in [place] with [employer]. Mailed letter also with information on new appt. documented in this encounter [facility] 10-02-2024 Telephone encounter Note No Voicemail for pt that Dr Belle will not be back in office until November and need to cancel and reschedule appt from 10/17/24 to another day or provider. Moved pt to 12/05/24 at 9-00am at [place] with Dr Belle Mailed a letter with reschedule information. Since no voicemail and no mychart [facility] 10-02-2024 Miscellaneous Notes No Voicemail for pt that Dr Belle will not be back in office until November and need to cancel and reschedule appt from 10/17/24 to another day or provider. Moved pt to 12/05/24 at 9-00am at [place] with Dr Belle Mailed a letter with reschedule information. Since no voicemail and no mychart documented in this encounter [facility] 07-17-2024 History of Presen t illness Narrative Images from the original note were not included. JANNA Nguyễn, PA-C Urology Office Visit Patient: Miranda Ro Age/Sex: 44 y.o., male Referred by: Dr. Fernandez ref. provider found PCP: No primary care provider on file. Today's Date: 07/17/2024 Visit type: Established patient Chief Complaint: Chief Complaint Patient presents with Urinary Catheter Problem HPI: Miranda is a 44 y.o. male who presents for follow up to the clinic today for donohue catheter change. The patient had an aide from the facility present with him. The patient had a prostatic abscess and urethral stricture while he was admitted to the hospital. He had a donohue catheter placed to keep placed after discharge. The patient and his aide report regular wound dressing changes for the prostatic abscess he had drained while in the hospital. The patient's urine has remained clear and yellow. The patient is doing well out of the hospital. The patient reports no issues with his catheter. The patient denies dysuria, gross hematuria, flank pain, pelvic pain, fever or chills. 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 Gout Hypertension Necrotizing soft tissue infection 05/21/2024 Obesity Pelvic abscess in male (CMS/HCC) (HCC) 06/04/2024 Scoliosis Sepsis with acute renal failure and septic shock, due to unspecified organism, unspecified acute renal failure type ([facility]) 05/21/2024 Speech impairment Past Surgical History: Procedure Laterality Date APPENDECTOMY LAPAROSCOPIC COLOSTOMY 05/23/2024 Flexible sigmoidoscopy, simple colostomy placement PELVIS DEBRIDEMENT 05/21/2024 jhoan's gangrene PELVIS DEBRIDEMENT 05/26/2024 debridement of perineal wound UPPER GASTROINTESTINAL ENDOSCOPY 06/18/2020 Dr lazar/CAL WOUND DEBRIDEMENT Right 05/23/2024 Second look debridement right buttock & perineum Allergies: Allergies Allergen Reactions Penicillins Rash Reaction occurred greater than 10 years prior to present day. Minimal risk of allergy to penicillin in 2024 - [facility] [place] Medications: BP 103/57 Pulse 75 Ht 5' (1.524 m) Wt 180 lb (81.6 kg) BMI 35.15 kg/m Current Outpatient Medications: collagenase 250 UNIT/GM ointment, Apply topically as needed (Wound care)., Disp: , Rfl: dextrose 5 % solution, Infuse 100 mL/hr into a venous catheter as needed (Blood sugar less than 70mg/dL)., Disp: , Rfl: ERTAPENEM SODIUM IV, Infuse 1 g into a venous catheter Every 24 hours., Disp: , Rfl: hydrOXYzine pamoate (Vistaril) 25 MG capsule, Take 1 capsule (25 mg) by mouth every 8 hours as needed for itching for up to 10 days., Disp: , Rfl: Insulin Lispro (Humalog) 100 UNIT/ML solution injection, Inject 0-12 Units under the skin 3 times daily (with meals) AND 0-12 Units Nightly., Disp: , Rfl: piperacillin-tazobactam (Zosyn) IVPB 4.5 g in 100 mL (premix), Infuse 100 mL (4.5 g) into a venous catheter every 6 hours., Disp: , Rfl: vancomycin IVPB 1 g in 200 mL (premix), Infuse 1 g into a venous catheter every 12 hours., Disp: , Rfl: vancomycin IVPB 1250 mg in 250 mL NS (premix), Infuse 250 mL (1,250 mg) into a venous catheter every 12 hours., Disp: , Rfl: Family History: Family History Problem Relation Name Age of Onset Cancer Brother Diabetes Mother Asthma Mother High Blood Pressure Mother Heart disease Mother Diabetes Brother Early natural Sister -7 months old Social History: He reports that he has never smoked. He has never used smokeless tobacco. He reports that he does not drink alcohol and does not use drugs. Physical Exam: General: Well developed, well nourished, alert and cooperative, appears in no acute distress Head: Normocephalic, atraumatic Neck: supple, trachea midline Eyes: Non-injected conjunctiva, sclera clear, no proptosis Cardiac: Extremities are warm and well perfused. No edema, cyanosis or pallor. Lungs: Breathing is easy, non-labored. Speaking in clear and complete sentences. Normal diaphragmatic movement. Abdomen: soft, non-distended, non-tender, no rebound or guarding, no hernia and no CVA tenderness MSK: assisted in wheelchair Neuro: alert and oriented to person, place and time Psych: Demonstrates good judgement and reason, without hallucinations, abnormal affect or abnormal behaviors. Skin: no obvious lesions, no rashes Pertinent Labs: CBC: Lab Results Component Value Date WBC 5.6 07/07/2024 HGB 9.0 (L) 07/07/2024 HCT 27.9 (L) 07/07/2024 MCV 76.4 (L) 07/07/2024 PLT 196 07/07/2024 CMP: Lab Results Component Value Date NA 136 07/07/2024 K 4.4 07/07/2024 CL 110 (H) 07/07/2024 CO2 17 (L) 07/07/2024 BUN 46 (H) 07/07/2024 CREATININE 0.75 07/07/2024 GLUCOSE 147 (H) 07/07/2024 ALT 11 06/23/2024 AST 18 06/23/2024 ALKPHOS 161 (H) 06/23/2024 Testosterone: No results found for: "TESTOSTERONE" PSA: No results found for: "PSA", PSATOTALIN Hemoglobin A1C: Lab Results Component Value Date HGBA1C 9.6 (H) 06/04/2024 Urinalysis: Lab Results Component Value Date COLORU Yellow 05/21/2024 CLARITYU Turbid (A) 05/21/2024 KETONESU 40 (A) 05/21/2024 PROTUR 50 (A) 05/21/2024 UROBILINOGEN Normal 05/21/2024 Urine Culture: Lab Results Component Value Date URINECX Normal urogenital donna present 05/21/2024 PVR (by Ultrasound): Imaging: N/A Assessment and Plan: Miranda is a 44 y.o. male with donohue catheter Diagnosis Plan 1. Stricture of male urethra, unspecified stricture type 2. Prostate abscess -20 Fr straight catheter removed after deflating 19 cc balloon. -Site prepped with 3x povidone-iodine swabs prior to new catheter insertion. -20 Fr straight catheter placed, inflated 10 cc balloon, rec'd urine return. Pt tolerated well. Clear yellow urine noted in line. overnight bag placed. -Continue donohue catheter changes every 4 weeks, discussed patient's case with Dr. Belle -He needs to continue to heal from his recent hospital admission -We discussed the possibility to a SPT placement in the future with Dr. Belle -Letter sent via fax to [facility] facility for orders regarding the patient's catheter changes Follow Up: Follow up in about 3 months (around 10/17/2024) for with Dr. Belle. JANNA Nguyễn PA-C [facility] Urology All questions and concerns were answered and addressed. The patient expressed understanding and agrees with the plan. Reviewed and approved by Christina Jim PA-C, on 07/17/2024 at 2:34 PM. 20 Fr straight catheter removed after deflating 19 cc balloon. Site prepped with 3x povidone-iodine swabs prior to new catheter insertion. UROJET [address] [facility] [id number] LOT # [id number] EXPIRES 06/2026 Administered by wd Pt tolerated well 20 Fr straight catheter placed, inflated 10 cc balloon, rec'd urine return. Pt tolerated well. Clear yellow urine noted in line. overnight bag placed. documented in this encounter [facility] 07-15-2024 Miscellaneous Notes Called facility and spoke to nurse Lr regarding maintaining IV abx orders and pull PICC after last dose. She was able to read back orders. Reviewed vanc level today at 13.6. We can resume his vancomycin at 750 mg IV q24h to complete course through 07/17. Can pull PICC at end of therapy. Called facility and spoke to nurse Lr to verify IV med, dose, frequency, weekly labs, and no follow up appt so okay to pull PICC after last dose. Also told her that Vanc level needs to be obtained tomorrow prior to Vanc dose. She was able to read back orders Covering this patient for Berenice. Yes- correct, patient should be on Vancomycin 750 mg q24h. Agree with holding the morning dose. Lets also hold 6 pm dose as well. Please have them check a random level tomorrow. If appropriate, will plan to restart vancomycin at 750 mg q24h. Also reviewed chart- our service was following at [facility]. Repeat CT imaging there showed small residual inferior fluid collection and resolved R gluteal abscess. R gluteal drain was removed by surgery team at [facility] on 06/23. Reviewed wound notes and photos at Rehab- wound overall improved. D/w Berenice, can advised SNF to pull PICC line at end of therapy. No follow-up needed. Patient has appointment scheduled with Wound Clinic. Received a call from Evelia redmond at [facility] stating Vanc tr is elevated at 27.7, current dose is 750mg q12h, pt doses at 6a and 6p, but upon looking at OPAT, Vancomycin dose is 750mg q24h. While on the phone with Evelia, notified her to hold morning dose. ale Ng, I can call back and notify them of correct dosing 750mg q24h, or did you want to change dose? Thanks documented in this encounter [facility] 07-15-2024 Telephone encounter Note Called facility and spoke to nurse Lr regarding maintaining IV abx orders and pull PICC after last dose. She was able to read back orders. [facility] 07-15-2024 Telephone encounter Note Reviewed vanc level today at 13.6. We can resume his vancomycin at 750 mg IV q24h to complete course through 07/17. Can pull PICC at end of therapy. [facility] 07-14-2024 Telephone encounter Note Called facility and spoke to nurse Lr to verify IV med, dose, frequency, weekly labs, and no follow up appt so okay to pull PICC after last dose. Also told her that Vanc level needs to be obtained tomorrow prior to Vanc dose. She was able to read back orders [facility] 07-14-2024 Miscellaneous Notes Called facility and spoke to nurse Lr to verify IV med, dose, frequency, weekly labs, and no follow up appt so okay to pull PICC after last dose. Also told her that Vanc level needs to be obtained tomorrow prior to Vanc dose. She was able to read back orders Covering this patient for Berenice. Yes- correct, patient should be on Vancomycin 750 mg q24h. Agree with holding the morning dose. Lets also hold 6 pm dose as well. Please have them check a random level tomorrow. If appropriate, will plan to restart vancomycin at 750 mg q24h. Also reviewed chart- our service was following at [facility]. Repeat CT imaging there showed small residual inferior fluid collection and resolved R gluteal abscess. R gluteal drain was removed by surgery team at [facility] on 06/23. Reviewed wound notes and photos at Rehab- wound overall improved. D/w Berenice, genaro advised SNF to pull PICC line at end of therapy. No follow-up needed. Patient has appointment scheduled with [facility]ound Clinic. Received a call from Evelia nurse at [facility] stating Vanc tr is elevated at 27.7, current dose is 750mg q12h, pt doses at 6a and 6p, but upon looking at OPAT, Vancomycin dose is 750mg q24h. While on the phone with Evelia, notified her to hold morning dose. ale Ng I can call back and notify them of correct dosing 750mg q24h, or did you want to change dose? Thanks documented in this encounter [facility] 07-14-2024 Telephone encounter Note Covering this patient for Berenice. Yes- correct, patient should be on Vancomycin 750 mg q24h. Agree with holding the morning dose. Lets also hold 6 pm dose as well. Please have them check a random level tomorrow. If appropriate, will plan to restart vancomycin at 750 mg q24h. Also reviewed chart- our service was following at [facility]. Repeat CT imaging there showed small residual inferior fluid collection and resolved R gluteal abscess. R gluteal drain was removed by surgery team at [facility] on 06/23. Reviewed wound notes and photos at Rehab- wound overall improved. D/w Berenice, genaro advised SNF to pull PICC line at end of therapy. No follow-up needed. Patient has appointment scheduled with Wound Clinic. [facility] 07-14-2024 Telephone encounter Note Received a call from Evelia nurse at [facility] stating Vanc tr is elevated at 27.7, current dose is 750mg q12h, pt doses at 6a and 6p, but upon looking at OPAT, Vancomycin dose is 750mg q24h. While on the phone with Evelia, notified her to hold morning dose. ale Ng, I can call back and notify them of correct dosing 750mg q24h, or did you want to change dose? Thanks [facility] 07-09-2024 Telephone encounter Note Name of Caller: Tito Contact Reason for Appointment: Patient will be discharged from [facility]. They are requesting a callback to schedule patient follow up. Please advise. Office Name: Urology [facility] 07-09-2024 Miscellaneous Notes Name of Caller: Tito Contact Reason for Appointment: Patient will be discharged from [facility]. They are requesting a callback to schedule patient follow up. Please advise. Office Name: Urology documented in this encounter [facility] 07-02-2024 Telephone encounter Note We have been unable to reach your patient to schedule their testing. Test Name: CT 1st Attempt: 07/01 unable to lvm 2nd Attempt: 07/02 unable to lvm [facility] 07-02-2024 Miscellaneous Notes We have been unable to reach your patient to schedule their testing. Test Name: CT 1st Attempt: 07/01 unable to lvm 2nd Attempt: 07/02 unable to lvm documented in this encounter [facility] 06-24-2024 History of Presen t illness Narrative Seen at [facility] documented in this encounter [facility] 06-23-2024 History of Presen t illness Narrative Seen at [facility] documented in this encounter [facility] 06-20-2024 History of Presen t illness Narrative [facility] / documented in this encounter [facility] 06-19-2024 History of Presen t illness Narrative [facility] / documented in this encounter [facility] 06-18-2024 History of Presen t illness Narrative Pt seen at [facility]. Complete documentation under [facility]'s EMR. documented in this encounter [facility] 06-16-2024 History of Presen t illness Narrative Pt seen at [facility]. Complete documentation under [facility]'s EMR. documented in this encounter [facility] 06-13-2024 History of Presen t illness Narrative Pt seen at [facility]. Complete documentation under [facility]'s EMR. documented in this encounter [facility] 06-12-2024 History of Presen t illness Narrative Pt seen at [facility]. Complete documentation under [facility]'s EMR. documented in this encounter [facility] 06-10-2024 History of Presen t illness Narrative Pt seen at [facility]. Complete documentation under [facility]'s EMR. documented in this encounter [facility] 06-09-2024 History of Presen t illness Narrative Pt seen at [facility]. Complete documentation under [facility]'s EMR. documented in this encounter [facility] 06-06-2024 Miscellaneous Notes SW present during Rounds this morning as Tx team discussed Pt's current health status and discharge plans. Reviewed chart. No PCP listed. No HCPOA on file. Met w /Pt, introduced self, explained role, and inquired upon possible need for supports or community resources. Pt followed by [facility] Med Team. Med Team to schedule follow up new patient PCP appt. Pt reported he lives alone in a [address] apartment, has lived there for over 13 years, no problems with housing, receives SSI benefits for deafness and speech impairment. Pt stated his two brothers Pernell and Georges provide positive support and assistance, they take him to his appts and grocery store as needed. Pt stated they also manage his SSI funds and pay his bills. Pt denied having a Guardian or medical HCPOA and stated his brother Pernell manages all of his financial issues. Pt requested SW talk to both of his brothers and called them on his cell phone. Phone call w / Pernell who confirmed Pt does not have a Guardian or medical HCPOA, Pernell is financial POA, and Pernell agreed it would be a good idea for Pt to complete medical HCPOA with Georges as Agent and Pernell as First Alternate. Phone call w / Georges who confirmed this information as well. Pt confirmed this plan as well. SW and Pt reviewed medical HCPOA document. Pt was able to answer orienting questions correctly and reported understanding of document. Pt named Agent as his brother Georges Ro Jr. (Phone) [phone], (Address) [address] [place] [address]. Pt named First Alternate Agent as Pt's other brother Pernell Ro II, (Phone) [phone] (Address) [address] [place] [address]. Signature was witnessed by SW and bedside nurse. Pt was given original and two copies. Appropriate stickers were placed on remaining copies. A copy was placed on the chart, and a copy was sent to medical records. Contact information was updated in chart for Agents and placemarker was added. Pt thanked WILL for assistance, reported no other needs for to address at this time. Pt is scheduled for discharge today. Pt returning to [facility]. [facility] tasked [facility] to schedule transport which just came back confirmed for 6 pm. Pt's brother Georges was notified by [facility]. Bedside RN, unit support representative and facility also made aware. Confirmed pickup time of 6 pm by transport company [employer] at phone number . Location of facility drop off is [facility]. Facility notified via [employer], [facility] Bhavana Nesbitt notified on secure chat. Transport requested in Roundtrip. Awaiting time confirmation. TCC PROGRESS NOTE: Pt remains in H5. Pt did have R hip accordion drain placed for abscess yesterday. Cultures were sent. ID is consulted. Pt is on iv clindamycin, zosyn and vancomycin. He has a consult to urology. Per bedside RN, urology thinking possible suprapubic catheter placement. Spoke with pt's brother Georges this am by telephone. Georges states that pt does not have official HCPOA selected. SW will try to see if pt and family interested. Plan for return to [facility] at discharge. Tcc will continue to follow. Images from the original note were not included. Urology Plan of Care IN normal sterile fashion, 0.035 glidewire placed through 20F donohue. Donohue removed. 20F [place] donohue inserted over the wire. 20cc placed into balloon and wire removed. Return of yellow urine. Patient tolerated well Tito Reid MD Urology PGY-3 06/06/2024 10:19 AM To guarantee prompt response, please page CHEMICAL PROCESS OPERATOR urology resident (using power plant operations manager finder) with any questions or concerns. [facility] per TCC request. Await review and response regarding ability to accept. TCC notified. Problem: Knowledge Deficit Goal: Patient/family/caregiver demonstrates understanding of disease process, treatment plan, medications, and discharge instructions Outcome: Progressing Problem: Potential for Compromised Skin Integrity Goal: Skin Integrity is Maintained or Improved Outcome: Progressing Goal: Nutritional status is improving Outcome: Progressing Problem: Urinary Incontinence Goal: Perineal skin integrity is maintained or improved Outcome: Progressing Patient seen by myself and medicine team during bedside rounds this morning at 8:30 AM. Please refer to my attestation of yesterday's H&P for my notes. Interventional Radiology Brief Postprocedure Note Procedure: right gluteal fluid collection. CT guided abscess fluid collection drainage Preprocedure Diagnosis: No associated diagnoses for current labs Postprocedure Diagnosis: no change Staff: Staff Role Miranda Dong DO Radiologist Corie Kramer, bath mixer Nurse Audrey Dupree Tower Crane Operator Description of procedure: 4.8 x 3.9cm fluid [id number] Fr drain placed in the right gluteal fluid collection from antlateral approach. Estimated Blood Loss: None Medications Medications (Filter: Administrations occurring from 1357 to 1357 on 06/05/24) As of 06/05/24 1357 None Specimens No specimens collected Findings: 10 Fr drain placed with Ct guidance. Plan: observe for 2 hours. Complications: None Anesthesia: Moderate Sedation See detailed result report with images in PACS. The patient tolerated the procedure well without incident or complication and is in stable condition. Interventional Radiology Preprocedure Note Reason for Procedure: right gluteal fluid collection. Drainage tube placement. 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 ASA Score: ASA 2 - Patient with mild systemic disease with no functional limitations Benefits, risks and alternatives of procedure and planned sedation have been discussed with the patient and/or their access services representative. All questions answered and they agree to proceed. documented in this encounter [facility] 06-06-2024 Note Formatting of this n ote might be different from the original. SW present during Rounds this morning as Tx team discussed Pt's current health status and discharge plans. Reviewed chart. No PCP listed. No HCPOA on file. Met w /Pt, introduced self, explained role, and inquired upon possible need for supports or community resources. Pt followed by [facility] Med Team. Med Team to schedule follow up new patient PCP appt. Pt reported he lives alone in a section 8 apartment, has lived there for over 13 years, no problems with housing, receives SSI benefits for deafness and speech impairment. Pt stated his two brothers Pernell and Georges provide positive support and assistance, they take him to his appts and grocery store as needed. Pt stated they also manage his SSI funds and pay his bills. Pt denied having a Guardian or medical HCPOA and stated his brother Pernell manages all of his financial issues. Pt requested SW talk to both of his brothers and called them on his cell phone. Phone call w / Pernell who confirmed Pt does not have a Guardian or medical HCPOA, Pernell is financial POA, and Pernell agreed it would be a good idea for Pt to complete medical HCPOA with Georges as Agent and Pernell as First Alternate. Phone call w / Georges who confirmed this information as well. Pt confirmed this plan as well. SW and Pt reviewed medical HCPOA document. Pt was able to answer orienting questions correctly and reported understanding of document. Pt named Agent as his brother Georges Ro Jr. (Phone) [phone], (Address) [address] [facility] [address]. Pt named First Alternate Agent as Pt's other brother Pernell Ro II, (Phone) [phone] (Address) [address] [address]. Signature was witnessed by SW and bedside nurse. Pt was given original and two copies. Appropriate stickers were placed on remaining copies. A copy was placed on the chart, and a copy was sent to medical records. Contact information was updated in chart for Agents and placemarker was added. Pt thanked SW for assistance, reported no other needs for SW to address at this time. Pt is scheduled for discharge today. [facility] 06-06-2024 Note Formatting of this n ote might be different from the original. SW present during Rounds this morning as Tx team discussed Pt's current health status and discharge plans. Reviewed chart. No PCP listed. No HCPOA on file. Met w /Pt, introduced self, explained role, and inquired upon possible need for supports or community resources. Pt followed by [facility] Med Team. Med Team to schedule follow up new patient PCP appt. Pt reported he lives alone in a section 8 apartment, has lived there for over 13 years, no problems with housing, receives SSI benefits for deafness and speech impairment. Pt stated his two brothers Pernell and Georges provide positive support and assistance, they take him to his appts and grocery store as needed. Pt stated they also manage his SSI funds and pay his bills. Pt denied having a Guardian or medical HCPOA and stated his brother Pernell manages all of his financial issues. Pt requested SW talk to both of his brothers and called them on his cell phone. Phone call w / Pernell who confirmed Pt does not have a Guardian or medical HCPOA, Pernell is financial POA, and Pernell agreed it would be a good idea for Pt to complete medical HCPOA with Georges as Agent and Pernell as First Alternate. Phone call w / Georges who confirmed this information as well. Pt confirmed this plan as well. SW and Pt reviewed medical HCPOA document. Pt was able to answer orienting questions correctly and reported understanding of document. Pt named Agent as his brother Georges Ro Jr. (Phone) [phone], (Address) [address] [place] [address]. Pt named First Alternate Agent as Pt's other brother Pernell Ro II, (Phone) [phone] (Address) [address] [place] [address]. Signature was witnessed by SW and bedside nurse. Pt was given original and two copies. Appropriate stickers were placed on remaining copies. A copy was placed on the chart, and a copy was sent to medical records. Contact information was updated in chart for Agents and placemarker was added. Pt thanked WILL for assistance, reported no other needs for to address at this time. Pt is scheduled for discharge today. [facility] 06-06-2024 Note Formatting of this n ote might be different from the original. Pt returning to [facility]. [facility] tasked [facility] to schedule transport which just came back confirmed for 6 pm. Pt's brother Georges was notified by [facility]. Bedside RN, unit support representative and facility also made aware. [facility] 06-06-2024 Note Formatting of this n ote might be different from the original. Pt returning to [facility]. [facility] tasked [employer] to schedule transport which just came back confirmed for 6 pm. Pt's brother Georges was notified by [facility]. Bedside RN, unit support representative and facility also made aware. [facility] 06-06-2024 Note Formatting of this n ote might be different from the original. Confirmed pickup time of 6 pm by transport [employer] at phone number . Location of facility drop off is [facility]. Facility notified via [employer], [facility] Bhavana Nesbitt notified on secure chat. T [facility] 06-06-2024 Note Formatting of this n ote might be different from the original. Confirmed pickup time of 6 pm by transport [employer] at phone number . Location of facility drop off is [facility]. Facility notified via [employer] [facility] Bhavana Nesbitt notified on secure chat. T [facility] 06-06-2024 Note Formatting of this n ote might be different from the original. Transport requested in Roundtrip. Awaiting time confirmation. T [facility] 06-06-2024 Note Formatting of this n ote might be different from the original. Transport requested in Roundtrip. Awaiting time confirmation. [facility] 06-06-2024 Hospital Discharg e instructions Bhavana Nesbitt RN - 06/06/2024 2:00 PM EDT Images from the original note were not included. Continuity of Care Form Patient Name: Miranda Ro : 1980 Admit date: 06/04/2024 Discharge date: Code Status Order: Full Code Advance Directives: N Admitting Physician: Dahlia Funez MD PCP: No primary care provider on file. 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 PELVIS DEBRIDEMENT 05/26/2024 debridement of perineal wound UPPER GASTROINTESTINAL ENDOSCOPY 06/18/2020 Dr lazar/CAL WOUND DEBRIDEMENT Right 05/23/2024 Second look debridement right buttock & perineum Immunization History: Immunization History Administered Date(s) Administered Influenza, injectable, quadrivalent, preservative free 12/27/2016, 01/01/2020 Pfizer SARS-CoV-2 Vaccination 09/09/2020, 10/03/2020 Pneumococcal Polysaccharide PPSV23 01/01/2020 Tdap 01/01/2020 Active Problems: Medical Problems Problem List * (Principal) Pelvic abscess in male (CMS/HCC) (HCC) Chavarria's palsy Sepsis with acute renal failure and septic shock, due to unspecified organism, unspecified acute renal failure type ([facility]) Anxiety Class 3 severe obesity due to excess calories without serious comorbidity with body mass index (BMI) of 40.0 to 44.9 in adult (HCC) Noncompliance with diabetes treatment Helicobacter pylori gastritis Type 2 diabetes mellitus with hyperglycemia (HCC) Unable to care for self Hearing impaired Scoliosis Speech impairment Gout Hypertriglyceridemia Essential hypertension Jhoan's gangrene Cellulitis of buttock Wound of left buttock Necrotizing soft tissue infection Isolation/Infection: No active isolations No active infections Nurse Assessment: Last Vital Signs: BP 139/84 (BP Location: Left arm, Patient Position: Lying) Pulse 99 Temp 36.5 C (97.7 F) (Temporal) Resp 16 Wt 180 lb (81.6 kg) SpO2 99% BMI 35.15 kg/m Last documented pain score (0-10 scale): Last Weight: Wt Readings from Last 1 Encounters: 06/04/24 180 lb (81.6 kg) Mental Status: {FABIANA Patient Mental Status:47880} IV Access: {FABIANA IV Access:85828} Nursing Mobility/ADLs: Walking {PRIMO ADL:83416::"Independent"} Transfer {PRIMO ADL:62089::"Independent"} Bathing {PRIMO ADL:11535::"Independent"} Dressing {PRIMO ADL:99216::"Independent"} Toileting {PRIMO ADL:36288::"Independent"} Feeding {PRIMO ADL:09209::"Independent"} Lifestyle Director {PRIMO ADL:26062::"Independent"} Med Delivery {yes/no:99825} Wound Care Documentation and Therapy: Wound/Incision 05/23/24 Incision Buttock Right (Active) Site Assessment Fragile;Sloughing;Storrs;Red;White 06/05/242029 Renuka-Wound Assessment Excoriated;Fragile 06/05/242029 Odor Mild 06/05/242029 Drainage Amount Moderate 06/05/242029 Treatments Cleansed;Site care;Packing;Pharmaceutical agent 06/05/242029 Primary Dressing Gauze;ABD;Dakin's wet to dry 06/05/242029 Dressing Status New dressing;Clean, dry & intact 06/05/242029 Number of days: 13 Wound/Incision 05/23/24 Incision Scrotum (Active) Site Assessment Painful;Sloughing;Red;Yellow 06/05/242029 Renuka-Wound Assessment Fragile;Red 06/05/24 2030 Odor Mild 06/05/242029 Drainage Amount Small 06/05/242029 Treatments Cleansed;Site care;Packing;Pharmaceutical agent 06/05/242029 Primary Dressing ABD;Dakin's wet to dry;Gauze 06/05/242029 Dressing Status New dressing;Clean, dry & intact 06/05/242029 Number of days: 13 Wound/Incision 05/26/24 Perineum (Active) Number of days: 11 Elimination: Continence: Bowel: {yes/no:47439} Bladder: {yes/no:56626} Urinary Catheter: {FABIANA Urinary Catheter:76161} Colostomy/Ileostomy/Ileal Conduit: {YES / NO:85960} Colostomy LUQ-Stomal Appliance: 2 piece, Clean, Dry, Intact Colostomy LUQ-Site Assessment: Clean, Intact Colostomy LUQ-Peristomal Assessment: Clean, Intact Colostomy LUQ-Treatment: Placement checked Colostomy LUQ-Output (mL): 25 mL Date of Last BM: Intake/Output Summary (Last 24 hours) at 06/06/2024 1356 Last data filed at 06/06/2024 1258 Gross per 24 hour Intake 4232.5 ml Output 3000 ml Net 1232.5 ml I/O last 3 completed shifts: In: 3577.5 (43.8 mL/kg) [P.O.:1430; I.V.:1747.5 (21.4 mL/kg); IV Piggyback:400] Out: 3400 (41.6 mL/kg) [Urine:3100 (1.1 mL/kg/hr); Drains:25; Stool:275] Weight: 81.6 kg Safety Concerns: {FABIANA Safety Concerns:36768} Impairments/Disabilities: {FABIANA Impairments/Disabilities:51550} Nutrition Therapy: Current Nutrition Therapy: {FABIANA Diet List:09563} Routes of Feeding: {routes of feedin} Liquids: {liquid consistency:41637} Daily Fluid Restriction: {daily fluid restriction:06771} Last Modified Barium Swallow with Video (Video Swallowing Test): {done not done:34400} Treatments at the Time of Hospital Discharge: Respiratory Treatments: Oxygen Therapy: {Therapy; copd oxygen:14579} Ventilator: {FABIANA Ventilator:28509} Rehab Therapies: {GEN THERAPY DISCIPLINE SCAL:6611250} Weight Bearing Status/Restrictions: {POD WEIGHT BEARIN} Other Medical Equipment (for information only, NOT a DME order): {Assistive Devices DME:48839} Other Treatments: Patient's personal belongings (please select all that are sent with patient): {FABIANA Patient Belongings:24797} RN SIGNATURE: {E-signature:41360} CASE MANAGEMENT/SOCIAL WORK SECTION Inpatient Status Date: Discharging to Facility/ Agency Name: [facility] Address: [address] [place], [place] [id number] Fax: Dialysis Facility (if applicable) Name: Address: Dialysis Schedule: Phone: Fax: Emergency Medical Technician Basic/Schedule Announcer signature: ICIAN SECTION Name: Miranda Ro Prognosis: good Condition at Discharge: stable Rehab Potential (if transferring to Rehab): excellent Recommended Labs or Other Treatments After Discharge: - Recommend daily wound care with dressing changes and santyl application - Continue IV antibiotics with Vanc/Zosyn. ID to follow at facility - Maintain IR drain placed in deep pelvis abscess - DO NOT remove donohue catheter. Placed via urology in [place]. Can follow up outpatient with urology for suprapubic catheter while attempting wound healing The individual is being admitted to a nursing facility directly from an [facility] Hospital or a unit of a [facility] that is not operated by or licensed by [facility] under section 5119.14 or 5160-3-15.1 5 The individual requires the level of services provided by a nursing facility for the condition for which he or she was treated in the hospital and, Physician Certification: I certify the above information and transfer of Miranda Ro is necessary for the continuing treatment of the diagnosis listed and that he requires LTAC for less than 30 days. Update Admission H&P: No change in H&P PHYSICIAN SIGNATURE: documented in this encounter [facility] 06-06-2024 Note [facility] 06-06-2024 History of Presen t illness Narrative Med Team Progress Note Miranda Ro : 1980(44 y.o.) Date: June 06, 2024 Med Team: John Paul Attending: Dr. Funez Chief Complaint: Pelvic abscess, recent admission for Jhoan's gangrene Subjective: - No acute events overnight. Tolerated CT guided drainage and drain placement yesterday. - Currently, pt resting supine in bed. No complaints at this time and pain is well-controlled. Denies new fever/chills or new pain on his body. Slept well last night and robust apatite without N/V or belly pain. No SOB. Some coughing but breathing comfortable and no sputum production. Wound care has been following. Uro changed donohue over wire 06/06 AM. PRN meds used in last 24hrs: APAP, oxycodone 5mg Review of Systems All other systems reviewed and are negative. Scheduled Meds:clindamycin, 600 mg, IntraVENous, q8h collagenase, , Topical, Daily enoxaparin, 40 mg, SubCUTAneous, Daily influenza, 0.5 mL, IntraMUSCular, Once insulin lispro, 0-12 Units, SubCUTAneous, 4x daily AC & HS nystatin, 5 mL, Swish & Swallow, TID piperacillin-tazobactam, 4,500 mg, IntraVENous, q6h sodium chloride 0.9%, 5-40 mL, IntraVENous, q12h sodium hypochlorite, , Topical, Daily sodium hypochlorite, , Irrigation, BID vancomycin, 1,250 mg, IntraVENous, q12h Continuous Infusions: Objective: BP 139/84 (BP Location: Left arm, Patient Position: Lying) Pulse 99 Temp 36.5 C (97.7 F) (Temporal) Resp 16 Wt 180 lb (81.6 kg) SpO2 99% BMI 35.15 kg/m Physical Exam Constitutional: General: He is not in acute distress. Appearance: He is not ill-appearing. HENT: Mouth/Throat: Mouth: Mucous membranes are moist. Eyes: Extraocular Movements: Extraocular movements intact. Conjunctiva/sclera: Conjunctivae normal. Cardiovascular: Rate and Rhythm: Normal rate and regular rhythm. Pulses: Normal pulses. Heart sounds: No murmur heard. Pulmonary: Effort: Pulmonary effort is normal. No respiratory distress. Breath sounds: Normal breath sounds. No wheezing or rales. Abdominal: General: Bowel sounds are normal. There is no distension. Palpations: Abdomen is soft. Tenderness: There is no abdominal tenderness. Comments: Ostomy site appears normal with brown liquid stool output. Belly is nontender and nondistended Genitourinary: Comments: Donohue in place; 10Fr drain in place in R buttock draining cloudy/dark brown fluid and dressing in place on buttocks with mild seepage onto the pad Musculoskeletal: General: Normal range of motion. Cervical back: Normal range of motion. Right lower leg: No edema. Left lower leg: No edema. Neurological: General: No focal deficit present. Mental Status: He is alert and oriented to person, place, and time. Psychiatric: Mood and Affect: Mood normal. Behavior: Behavior normal. -Agree with above. Additionally, patient hard of hearing and with intellectual disability but able to answer yes/no for most questions. +Desquamation of skin of both hands. [facility] Recent Labs BMP: Recent Labs 06/04/24164806/05/2431806/06/24415 NA 135* 135* 134* K 4.1 4.0 3.8 CL 103 106 104 CO2 25 23 22 BUN 9 8 7* CREATININE 0.52* 0.53* 0.63* CALCIUM 7.6* 7.4* 7.3* LFTs: Recent Labs 06/04/24164806/05/2431806/06/24415 AST 12 14 24 ALT <6 <6 <6 PROT 5.8* 5.5* 5.6* ALBUMIN 1.5* 1.4* 1.5* BILITOT 0.2 0.4 0.2 ALKPHOS 225* 195* 202* Glucose: Recent Labs 06/04/24164806/05/24 0053 06/05/2431806/05/24 0549 06/05/24 1530 06/05/24200406/06/24 0416 06/06/24 0759 06/06/24 1216 GLUCOSE 134* -- 105* -- -- -- 209* -- -- POCGLU -- 127* -- 130* 97 227* -- 201* 240* Procal: Recent Labs 06/04/241648 PROCAL 0.11* CBC: Recent Labs 06/04/241648 06/05/24 0319 06/06/24 0416 WBC 4.2 3.7 3.2* HGB 8.2* 7.6* 7.6* HCT 25.9* 24.2* 23.8* PLT 196 172 180 MCV 82.7 83.2 81.8 RDW 15.1* 14.9 15.2* ABGs: No results for input(s): "PHART", "FDR4RHN", "PO2ART", "HCS8HPS", "SO2ART", "Q8WTPMKX" in the last 72 hours. Lactic Acid: Recent Labs 06/04/24 1649 LACTATE 0.9 INR: Recent Labs 06/05/24 0548 06/06/24 0416 INR 1.1 1.0 Cardiac Injury Profile: No results for input(s): "CKTOTAL", "CKMB", "TROPONINI", "TROPHSBASE", "TROPHS2", "BNP" in the last 72 hours. Labs in Last 3 months: Lab Results Component Value Date TSH 1.14 05/21/2024 INR 1.0 06/06/2024 Assessment and Plan: Pelvic+prostate abscesses, perineal wound s/p CT guided drainage and drain placement Recent admission for Jhoan's Gangrene - ID consulted, appreciate recs on abx and duration - Continue Vancomycin, Zosyn - received Clindamycin this admission but will stop on discharge per ID - general surgery consulted; no further plans for intervention; now signed off - repeat CTAP in 1 wk, OP follow up for drain removal per surgery - Pain control with PRN tylenol and PRN oxycodone; well controlled - Blood cultures negative 24hrs - stopped fluids, apatite is very good and tolerating PO well Urethral Stricture with Chronic Donohue S/p debridement for jhoan's 05/23/24; 05/26/24 - changed by uro 06/07 - DO NOT pull donohue for any reason unless urology says to do so - may consider SPT as OP but does not need to be done this admission - continue local wound care Oral Candidiasis -continue PO nystatin Resolved Problems: Sepsis (resolved, VSS) Chronic Problems and Follow Up Items: Uncontrolled type 2 diabetes, complicated by poor wound healing - Last A1c, 12.6 (05/21/24) - cont medium dose SSI Normocytic anemia - Hgb 7's - 8's previously - Likely worsened by recent surgical debridement - No signs of active blood loss, continue to monitor Dispo and Barriers to Discharge: Auth/transportation to [facility] - Goals of Care: FULL CODE - DVT Prophylaxis: Lovenox 40 q24hr - CrCl >30 - GI Prophylaxis: Not Indicated - Diet: General Cosigned by Dahlia Funez MD at 06/06/2024 2:28 PM EDT Associated attestation - Dahlia Funez MD - 06/06/2024 2:28 PM EDT I have discussed the care of Miranda Ro with the medical student and/or resident. I have personally taken a history, examined the patient, and performed the associated medical decision making activities. I have reviewed & verified the attested documentation. Unless otherwise noted below, this documentation reflects the history, physical exam, and medical decision making that I performed myself. Please see note for my personal highlights or additions in Green. Patient seen and examined by myself at 11:30am on 06/06/24 Leon Changes to Care Plan: -No acute issues overnight, IR-guided drain placed yesterday and cultures sent -Overall reports no new issues including fevers/chills/abd pain and reports some gluteal/groin pain that is stable/adequately managed by prn tylenol/oxycodone -Our team spoke with surgery and urology-- no surgical plans at this point, drain to stay in place with repeat CT scans to follow, ID consulted and evaluated today/gave abx recommendations -Patient medically stable for discharge back to [facility] today Time spent on discharge: >30minutes Nutrition rescreen completed. Patient referred to the Dietitian due to A1c of 9.6, and infected wound. Dorys Nance DT Pharmacy to Dose Vancomycin - Progress Note Lab Results Component Value Date CREATININE 0.63 (L) 06/06/2024 BUN 7 (L) 06/06/2024 WBC 3.2 (L) 06/06/2024 VANCOTROUGH 23.3 06/06/2024 Doses, serum creatinine, and vancomycin levels interfaced automatically to [email or web address] and data has been analyzed and interpreted. Infectious Diagnosis: SSTI Est CrCl: >120 mL/min (Cockcroft-Gault) Assessment: Current regimen vancomycin 1250 mg every 12 hours (15.3 mg/kg) Predicted AUC = 589 mg/L*hr (goal 400-600 mg/L*hr) PAUC = 100% (probability that AUC is >400 mg/L*hr) Pconc = 4% (probability that Ctrough is above 20 mcg/mL (toxicity)) Plan: Is the current dose therapeutic? [x] Yes - obtain next level on 06/08 unless predicted AUC is sub-/supra-therapeutic or change in serum creatinine. [] No Trend serum creatinine. Trend AUC using Bayesian Modeling. Orders placed. DATE: 06/06/24 TIME: 7:43 AM Bob Peña PharmD Clinical Pharmacist Available via Secure Chat Pharmacy to Dose Vancomycin - Progress Note Lab Results Component Value Date CREATININE 0.53 (L) 06/05/2024 BUN 8 06/05/2024 WBC 3.7 06/05/2024 VANCOTROUGH 23.2 06/05/2024 Doses, serum creatinine, and vancomycin levels interfaced automatically to [email or web address] and data has been analyzed and interpreted. Infectious Diagnosis: SSTI Est CrCl: >100 mL/min (Cockcroft-Gault) Assessment: Current regimen vancomycin 1250 mg every 8 hours Predicted AUC = 794 mg/L*hr (goal 400-600 mg/L*hr) PAUC = 100% (probability that AUC is >400 mg/L*hr) Pconc = 79% (probability that Ctrough is above 20 mcg/mL (toxicity)) Plan: Is the current dose therapeutic? [x] No - change current regimen to vancomycin 1250 mg every 12 hours for predicted AUC 531 mg/L*hr, PAUC = 98% , and Pconc* = 1%. Obtain next level on 06/06. Trend serum creatinine. Trend AUC using Bayesian Modeling. Orders placed. DATE: 06/05/24 TIME: 5:48 PM Bridget Almonte RP Clinical Pharmacist Available via Secure Chat Images from the original note were not included. Spiritual Care Note [facility] Patient Name:Miranda Ro Chief Complaint: Chief Complaint Patient presents with Wound Infection Patient to ED #30 via squad for a wound infection to his buttocks. MRDD from [facility] for evaluation. Visit Type: Initial Visit Reason for visit: Consult from Provider Services Provided To: patient Attempt visit, pt is currently in a procedure and not in his room. I left a note from plaque maker Follow Up: tomorrow . Consulted with: Pt's . Jassi Brown 06/05/24 Images from the original note were not included. Department of General Surgery Daily Progress Note ADMIT DATE: 06/04/2024 TODAY'S DATE: 06/05/2024 HPI: Miranda Ro is a 44 y.o. male with significant past medical history of deaf, DM, MRDD, scoliosis who presents with wound concerns from [facility]. He previously underwent debridement with Jhoan's gangrene with Dr. Mercado on 05/21 with final debridement on 05/26. He also underwent laparoscopic diverting ostomy. He was discharged to [facility] on 05/30. While at [facility] repeat CT was completed today and was concerning for right gluteal region there is a multiloculated rim enhancing fluid collection noted measuring approximately 4.0 by 8.0 x 5.7 cm. A portion of this fluid collection wraps around dorsal aspect of the acetabulum and extends into the soft tissues along the right pelvic sidewall where there is an additional small pocket of fluid and likely some lymphadenopathy. Also concerning for ulceration and fluid collection near the prostate. Surgery was consulted for evaluation of wound concern. Patient not able to contribute to history significantly but is denying any current wound pain and would like to eat. On evaluation patient was hemodynamically stable and no acute distress with mild tachycardia 108. Labs reviewed significant for: Anemia 8.[address] A/P from [facility] reviewed; Large multiloculated abscess around R hip/acetabulum as well as prostate abscess. SUBJECTIVE: No acute events overnight. No nausea/vomiting. Ice chips/sips. Interval history: 06/[address] Consulted for wound concern. CT A/P with abscess of R hip and prostate. 06/05 IR consult for drain placement, Urology following. OBJECTIVE: VITALS: BP 149/88 (BP Location: Left arm, Patient Position: Lying) Pulse 93 Temp 36.6 C (97.8 F) (Temporal) Resp 16 Wt 81.6 kg (180 lb) SpO2 100% BMI 35.15 kg/m INTAKE/OUTPUT: Intake/Output Summary (Last 24 hours) at 06/05/2024 0812 Last data filed at 06/05/2024 0701 Gross per 24 hour Intake 50 ml Output 750 ml Net -700 ml I/O last 3 completed shifts: In: - (0 mL/kg) Out: 750 (9.2 mL/kg) [Urine:750 (0.3 mL/kg/hr)] Weight: 81.6 kg I/O this shift: In: 50 [IV Piggyback:50] Out: - PHYSICAL EXAM: Gen: NAD, A&Ox3, developmentally delayed, pain well controlled just wants to sleep Heart: RRR, well perfused Lungs: symmetric chest rise, normal work of breathing, breath sounds b/l Abd: soft, non tender, non distended. Non rigid. Ext: no c/c/e no gross deformities GENITAL/URINARY: large sacral and right ischial wound examined at bedside. There is some surrounding erythema but no palpable fluctuance-- likely indurated tissue. No significant pain to palpation. There is healthy tissue in the wound bed with no signs of purulent drainage. There is some fibrinous slough in the superior and inferior aspects of the wound. The wound does track superiorly but with no signs of fluctuance or purulent drainage (see media pics) LABS Results from last 7 days Lab Units 06/05/2431806/04/24 16406/03/24 0325 WBC AUTO 10*3/uL 3.7 4.2 4.4 HEMOGLOBIN g/dL 7.6* 8.2* 8.1* HEMATOCRIT % 24.2* 25.9* 25.3* PLATELETS 10*3/uL 172 196 186 Results from last 7 days Lab Units 06/05/2431806/04/24 16406/03/24 0325 SODIUM mmol/L 135* 135* 136 POTASSIUM mmol/L 4.0 4.1 4.5 CHLORIDE mmol/L 106 103 105 CO2 mmol/L 23 25 28 BUN mg/dL 8 9 11 CREATININE mg/dL 0.53* 0.52* 0.61* GLUCOSE mg/dL 105* 134* 288* CALCIUM mg/dL 7.4* 7.6* 7.5* Results from last 7 days Lab Units 06/05/2431806/04/24 16406/02/24 0400 ALK PHOS U/L 195* 225* 367* BILIRUBIN TOTAL mg/dL 0.4 0.2 0.2 PROTEIN TOTAL g/dL 5.5* 5.8* 5.9* ALT U/L <6 <6 <6 AST U/L 14 12 14 No results found for: "LIPASE" Results from last 7 days Lab Units 06/02/24 0400 MAGNESIUM mg/dL 1.7 Results from last 7 days Lab Units 06/05/24 0548 INR 1.1 Current Inpatient Medications Scheduled Meds:clindamycin, 600 mg, IntraVENous, q8h enoxaparin, 40 mg, SubCUTAneous, Daily influenza, 0.5 mL, IntraMUSCular, Once insulin lispro, 0-12 Units, SubCUTAneous, q6h piperacillin-tazobactam, 4,500 mg, IntraVENous, q6h sodium chloride 0.9%, 5-40 mL, IntraVENous, q12h vancomycin, 1,250 mg, IntraVENous, q8h Continuous Infusions:lactated Ringer's, 75 mL/hr, Last Rate: 75 mL/hr (06/04/24 7598) PRN Meds:PRN medications: acetaminophen, dextrose, dextrose, glucagon (rDNA), glucose, hydrOXYzine pamoate, naloxone, ondansetron ODT OR ondansetron, polyethylene glycol (PEG) 3350, sodium chloride, sodium chloride 0.9% ASSESSMENT AND PLAN: 44 y.o. male with previous debridement for Jhoan's Gangrene earlier this month now presenting with abscess of R hip and prostate. -Admit to medicine, no acute surgical intervention -Continue Clindamycin, Zosyn, Vanc -Blood cultures pending -NPO -Wound care following -Plan for IR guided drainage of R hip abscess as it is deep and not easily amenable to surgical drainage. -Urology consult for prostate abscess and plan for IR guided drainage as well -DVT ppx per primary -DW KALIA Ayoub CNP 06/05/24 8:12 AM Cosigned by Aretha Colón MD at 06/05/2024 3:23 PM EDT Associated attestation - Aretha Colón MD - 06/05/2024 3:23 PM EDT ATTENDING ADDENDUM Patient Active Problem List Diagnosis Class 3 severe obesity due to excess calories without serious comorbidity with body mass index (BMI) of 40.0 to 44.9 in adult (HCC) Noncompliance with diabetes treatment Helicobacter pylori gastritis Type 2 diabetes mellitus with hyperglycemia (HCC) Unable to care for self Chavarria's palsy Hearing impaired Scoliosis Speech impairment Gout Hypertriglyceridemia Essential hypertension Jhoan's gangrene Sepsis with acute renal failure and septic shock, due to unspecified organism, unspecified acute renal failure type ([facility]) Cellulitis of buttock Wound of left buttock Necrotizing soft tissue infection Pelvic abscess in male (CMS/HCC) (HCC) I have personally performed a face to face diagnostic evaluation on this patient. I have reviewed and agree with the care plan as documented above by my BRICKMASON CONTRACTOR/DEBRAC. I personally discussed the review of systems and interviewed the patient along with performing a physical examination. In addition, I discussed the patient's condition and treatment options with him/her when possible. All of the patient's questions were answered and family updated when appropriate and possible. I I performed a physical exam and ROS on the same date of service as above. My findings agree with the above note except for any details corrected below. 44M with recent Jhoan's gangrene requiring debridement at [facility] by Dr. Mercado on 05/21 with final debridement on 05/26, and a laparoscopic diverting loop colostomy on 05/23. He now presents from [facility] for further evaluation of deep abscesses involving the right hip as well as the prostate that were identified on CT A/P. The wound itself has a rim of fibrinous tissues but otherwise appears clean without indication for operative debridement. He is afebrile, non-tachycardic, and has no leukocytosis. IR is consulted for CT guided drain placement of the deep R hip abscess. This would be extremely morbid to debride operatively. Will defer to Urology for management of prostate abscess. Agree with Vancomycin until culture from IR aspiration/drain result. Surgery will continue to follow. Level of Medical Decision Making: risk of morbidity from additional diagnostic testing or treatment due to chronic gluteal infection with deep abscess []High [x]Moderate []Low Complexity: Acute illness with systemic symptoms (MOD) Risk: Prescription drug management (MOD) Personally Reviewed/Independently interpreted patient's: [x]Epic notes []Radiology studies [x]Labs []EKG []Ordering tests []Other Discussed/ With: [x]Patient/Family [x]RN []Consultants []SW/TCC []Other Total Care Time (combined between BRICKMASON CONTRACTOR/DEBRAC and myself) throughout the day today was >= 35 minutes (including chart/data review/analysis, care coordination, and [id number] encounter), and was spent discussing/counseling the patient/family regarding the care plan for this patient. I examined the patient independently. I reviewed relevant data myself and may have also done so in the context of team rounds. A full chart review was performed. Aretha Colón MD Division of Trauma Department of Surgery [facility] CT imaging reviewed. Large multiloculated abscess around R hip/acetabulum as well as prostate abscess. -Admit to medicine, no acute surgical intervention. -Continue IV abx -NPO midnight -Plan for IR guided drainage of R hip abscess as it is deep and not easily amenable to surgical drainage. -Urology consult for prostate abscess Discussed w Dr. Tahir Benavides MD General Surgery Pager [phone] 06/04/2024 7:31 PM documented in this encounter [facility] 06-06-2024 Consult note Associated Order (s): IP CONSULT TO INFECTIOUS DISEASES Images from the original note were not included. [facility] - Infectious Diseases Attending Consult Note Reason for Consult: Prostatic abscess History of Present Illness: 44 y/o M with hx of intellectual disability, hearing loss, uncontrolled DM (HgbA1c 12.6%), HTN, gout who was recently hospitalized at [facility] 05/21-05/30/24 for Jhoan's gangrene involving the R perineal/ gluteal/ scrotal areas with prostate heterogenous enhancement on original CT. He underwent emergent debridement to muscle/ fascia of the R gluteal and perineum on 05/[address] Mercado. Cystoscopy and donohue placement per Urology with urethral dilatation also on 05/21. The original CT questioned a fistula given urinary bubbles in the bladder. He underwent repeat I&D including perineum and scrotum with laparoscopic diverting loop colostomy on 05/23. OR cx grew MSSA, skin donna, torres-S E coli, and Bacteroides. He underwent debridement again on 05/26 at which time source control was achieved. There was no involvement of the rectum or testicles. He was not seen by ID. His blood cx were sterile. He was discharged with keflex and flagyl until 06/04. He was discharged to [facility]. He was found to have a 4 x 8 x 5.7cm multiloculated rim-enhancing fluid collection in the R gluteal region as well as a portion of the collection wrapping around the acetabulum and extending into the R pelvic sidewall; + additional collection along the floor of the pelvis in the expected region of the prostate 3.2 x 2.5 x 4.7cm. He was transferred back to [facility] on 06/04. Repeat imaging at [facility] showed multiple intramuscular fluid collections of the R hip and medial pelvic sidewall/ R sacrum; + multiloculated fluid collection of the prostate. He underwent CT-guided drain placement on 06/05 into the R gluteal abscess--> 8cc of "turbid white pus" was drained and sent for cx. GPRs are on stain and the cx is NGTD. Blood cx are sterile. He is unable to have direct drainage of the prostate by cystoscope due to extensive stricture disease. He is receiving vancomycin, zosyn, and clindamycin. Has listed PCN allergy but tolerates zosyn. Past Medical History: Past Medical History: Diagnosis Date Chavarria's palsy Deaf Diabetes mellitus (HCC) Gout Hypertension Obesity Scoliosis Speech impairment Past Surgical History: Past Surgical History: Procedure Laterality Date APPENDECTOMY LAPAROSCOPIC COLOSTOMY 05/23/2024 Flexible sigmoidoscopy, simple colostomy placement PELVIS DEBRIDEMENT 05/21/2024 jhoan's gangrene PELVIS DEBRIDEMENT 05/26/2024 debridement of perineal wound UPPER GASTROINTESTINAL ENDOSCOPY 06/18/2020 Dr lazar/CAL WOUND DEBRIDEMENT Right 05/23/2024 Second look debridement right buttock & perineum Current Medications: Current Facility-Administered Medications Medication Dose Route Frequency Provider Last Rate Last Admin acetaminophen (Tylenol) tablet 650 mg 650 mg Oral q4h PRN Miranda Mason MD 650 mg at 06/06/24 0527 clindamycin in D5W (Cleocin) IVPB 600 mg 600 mg IntraVENous q8h Miranda Mason MD Stopped at 06/06/24 0458 collagenase 250 UNIT/GM ointment Topical Daily Marycarmen Mcneal APRN - TIRE MAN Given at 06/05/241999 dextrose 5 % infusion 100 mL/hr IntraVENous PRN Miranda Mason MD dextrose 50 % solution 12.5 g 12.5 g IntraVENous PRN Miranda Mason MD enoxaparin (Lovenox) syringe 40 mg 40 mg SubCUTAneous Daily Miranda Mason MD 40 mg at 06/06/24 1116 glucagon (human recombinant) injection 1 mg 1 mg IntraMUSCular PRN Miranda Mason MD glucose oral gel 15 g 15 g Oral PRN Miranda Mason MD hydrOXYzine pamoate (Vistaril) capsule 25 mg 25 mg Oral q8h PRN Miranda Mason MD influenza vaccine tiss-cult subunt (Flucelvax) STANDARD-DOSE injection 0.5 mL 0.5 mL IntraMUSCular Once Miranda Mason MD Insulin Lispro (Humalog) injection 0-12 Units 0-12 Units SubCUTAneous 4x daily AC & HS Luis Noriega MD 4 Units at 06/06/24 1116 naloxone (Narcan) injection 0.4 mg 0.4 mg IntraVENous q5 min PRN Omar Alexandra DO nystatin (Mycostatin) 860854 UNIT/ML suspension 500,000 Units 5 mL Swish & Swallow TID Unique Santana MD 500,000 Units at 06/06/24 1116 ondansetron ODT (Zofran-ODT) disintegrating tablet 4 mg 4 mg Oral q8h PRN Miranda Mason MD Or ondansetron (Zofran) injection 4 mg 4 mg IntraVENous q6h PRN Miranda Mason MD oxyCODONE (Roxicodone) immediate release tablet 5 mg 5 mg Oral q6h PRN Miranda Mason MD 5 mg at 06/05/24 1948 piperacillin-tazobactam (Zosyn) IVPB 4,500 mg 4,500 mg IntraVENous q6h Miranda Mason MD Stopped at 06/06/24 1207 polyethylene glycol (PEG) 3350 (Miralax) packet 17 g 17 g Oral Daily PRN Miranda Mason MD sodium chloride 0.9 % infusion 5-250 mL/hr IntraVENous PRN Miranda Mason MD sodium chloride 0.9% (NS) flush 5-40 mL 5-40 mL IntraVENous q12h Miranda Mason MD 10 mL at 06/06/24 0845 sodium chloride 0.9% (NS) flush 5-40 mL 5-40 mL IntraVENous PRN Miranda Mason MD sodium hypochlorite (Dakin's (HALF-Strength)) 0.25 % external solution Topical Daily Unique Santana MD sodium hypochlorite (Dakins 1/4 strength) external solution Irrigation BID Unique Santana MD Given at 06/05/24 2000 vancomycin IVPB 1250 mg in 250 mL NS (premix) 1,250 mg IntraVENous q12h Miranda Mason MD Stopped at 06/05/24 6653 Allergies: Allergies Allergen Reactions Penicillins Rash Reaction occurred greater than 10 years prior to present day. Minimal risk of allergy to penicillin in 2024 - Social History: Social History Socioeconomic History Marital status: Single Spouse name: Not on file Number of children: Not on file Years of education: Not on file Highest education level: Not on file Occupational History Not on file Tobacco Use Smoking status: Never Smokeless tobacco: Never Substance and Sexual Activity Alcohol use: No Alcohol/week: 0.0 standard drinks of alcohol Drug use: No Sexual activity: Not on file Other Topics Concern Not on file Social History Narrative Not on file Social Drivers of Health Financial Resource Strain: Low Risk (06/02/2024) Received from [facility] Overall Financial Resource Strain (CARDIA) Difficulty of Paying Living Expenses: Not hard at all Food Insecurity: No Food Insecurity (06/02/2024) Received from [facility] Hunger Vital Sign Worried About Running Out of Food in the Last Year: Never true Ran Out of Food in the Last Year: Never true Transportation Needs: Unmet Transportation Needs (05/30/2024) Received from [facility] Transportation Source Has lack of transportation kept you from medical appointments or from getting medications?: Yes Has lack of transportation kept you from meetings, work, or from getting things needed for daily living?: Yes Physical Activity: Not on file Stress: No Stress Concern Present (05/30/2024) Received from [facility] [place] of Occupational Health - Occupational Stress Questionnaire Feeling of Stress : Not at all Social Connections: Socially Isolated (06/02/2024) Received from [facility] Social Connection and Isolation Panel [NHANES] Frequency of Communication with Friends and Family: More than three times a week Frequency of Social Gatherings with Friends and Family: More than three times a week Attends Cheondoism Services: Never Active Member of Clubs or Organizations: No Attends Club or Organization Meetings: Never Marital Status: Never Intimate Partner Violence: Unknown (05/30/2024) Received from [facility] Domestic Abuse Assessment Do you feel safe in your relationships at home?: Unable to assess Physical Abuse: Denies [facility] Domestic Abuse - Type of Abuse: Not on file [facility] Domestic Abuse - Time Frame: Not on file [facility] Domestic Abuse - Signs and Symptoms: Not on file Verbal Abuse: Denies HRSN Domestic Abuse - Reported To: Not on file Housing Stability: Low Risk (06/02/2024) Received from [facility] Housing Stability Vital Sign Unable to Pay for Housing in the Last Year: No Number of Times Moved in the Last Year: 0 Homeless in the Last Year: No Family History: Family History Problem Relation Name Age of Onset Cancer Brother Diabetes Mother Asthma Mother High Blood Pressure Mother Heart disease Mother Diabetes Brother Early natural Sister infant -7 months old Review of Systems: Review of Systems Unable to perform ROS: Other Vitals: Patient Vitals for the past 24 hrs: BP Temp Temp src Pulse Resp SpO2 06/06/24 0419 139/84 36.5 C (97.7 F) Temporal 99 16 99 % 06/05/24 1749 144/92 36.4 C (97.5 F) Temporal 106 19 99 % 06/05/24 1527 126/78 36.7 C (98.1 F) Temporal 94 15 100 % 06/05/24 1349 -- -- -- 95 -- 97 % 06/05/24 1345 135/89 -- -- 91 15 100 % 06/05/24 1340 137/79 -- -- 90 16 99 % 06/05/24 1335 130/85 -- -- 91 16 100 % 06/05/24 1330 146/87 -- -- 94 15 100 % 06/05/24 1325 147/86 -- -- 93 13 100 % 06/05/24 1320 -- -- -- 94 19 100 % 06/05/24 1320 147/88 -- -- 93 18 100 % Physical Exam: Physical Exam Vitals and nursing note reviewed. Constitutional: General: He is not in acute distress. HENT: Head: Normocephalic and atraumatic. Right Ear: External ear normal. Left Ear: External ear normal. Nose: Nose normal. No congestion. Mouth/Throat: Mouth: Mucous membranes are moist. Pharynx: Oropharynx is clear. Eyes: General: No scleral icterus. Extraocular Movements: Extraocular movements intact. Cardiovascular: Rate and Rhythm: Tachycardia present. Pulmonary: Effort: Pulmonary effort is normal. No respiratory distress. Breath sounds: No wheezing. Abdominal: General: There is no distension. Palpations: Abdomen is soft. Tenderness: There is no abdominal tenderness. Musculoskeletal: Comments: Gluteal area with bandage and unable to examine scrotal area given extent of packing; + gluteal drain with milky pus Skin: General: Skin is dry. Coloration: Skin is not jaundiced. Findings: No rash. Neurological: Mental Status: He is alert. Comments: Dysarthria; answers yes/ no Labs: Recent Labs 06/04/24 1649 06/05/2431806/06/246 NA 135* 135* 134* K 4.1 4.0 3.8 CL 103 106 104 CO2 25 23 22 BUN 9 8 7* CREATININE 0.52* 0.53* 0.63* GLUCOSE 134* 105* 209* CALCIUM 7.6* 7.4* 7.3* PROT 5.8* 5.5* 5.6* BILITOT 0.2 0.4 0.2 ALKPHOS 225* 195* 202* AST 12 14 24 ALT <6 <6 <6 PROCAL 0.11* -- -- Recent Labs 06/04/24 1649 06/05/2431806/06/24 0416 WBC 4.2 3.7 3.2* HGB 8.2* 7.6* 7.6* HCT 25.9* 24.2* 23.8* PLT 196 172 180 LYMPHOPCT 26.1 26.8 22.3 MONOPCT 7.6 8.1 7.5 BASOPCT 0.5 0.8 0.6 NEUTROABS 2.7 2.3 2.1 Micro: 06/05- R hip abscess cx- NGTD (mod GPR on stain) 06/04- blood cx- NGTD 05/23- R buttock cx- skin donna, torres-S E coli, Bacteroides 05/21- urine cx- urogenital donna 05/21- scrotal cx- skin donna, MSSA, E coli (yeast on stain) 05/21- scrotal cx- skin donna, MSSA, E coli, Bacteroides 05/21- scrotal cx- MSSA, E coli, Bacteroides 05/21- scrotal cx- MSSA, skin donna, E coli, Bacteroides 05/21- body fluid cx- skin donna, MSSA, E coli, Bacteroides 05/21- blood cx- negative Lines: PIV Radiography/Echo/Other: 06/04- CT abd/pelvis- 1. There are multiple intramuscular fluid collections (suspect abscess) involving the musculature of the posterior and medial right hip which extends along the medial pelvic sidewall and right sacrum. Multiple enlarged likely reactive lymph nodes posterior to the right psoas muscle and along the right iliac chain. 2. Diffuse edema within the subcutaneous fatty tissue. 3. Large right buttocks ulcer. 4. Multiloculated fluid collection of the prostate gland concerning for small abscesses. 5. There are a few small locules of air within the tissue along the inferior scrotum, incompletely characterized, a gas-forming organism cannot be excluded. This patient has a history of Jhoan's gangrene. 6. Bladder wall thickening, concerning for cystitis. 7. Colonic diverticulosis. 8. Splenomegaly. 9. Interval diverting left loop colostomy (05/23/2024) 05/21- CT abd/pelvis- 1. Heterogeneous prostate gland, with ring-enhancing, low-density focus or collection inferiorly and also contiguous with the right perineal region suspicious for nonspecific infectious or inflammatory or phlegmonous process as well as small abscesses, noted above. 2. More extensive soft tissue stranding and edema and probable inflammatory or phlegmonous change and cellulitis in the right gluteal and perineal subcutaneous tissues. 3. Urinary bladder distention, with mild inferior wall thickening and slight intraluminal gas bubbles suspicious for possible fistula formation. Follow-up according. 4. Splenomegaly. 5. Right renal cyst, and mild left renal caliectasis without apparent nephrolithiasis. Select: 06/04- CT pelvis- 1. Rim enhancing multiloculated fluid collection in the right gluteal region with extension into the right pelvic sidewall. This likely represents a large abscess. There is also an abscess noted in the pelvic floor in the expected location of the prostate gland which is not distinctly seen. Extensive inflammation and ulceration noted throughout the perineum and in the soft tissues of the upper thighs. 2. Abnormal ulceration and likely abscess formation in the soft tissues just below the penis. 06/04- CXR- Bilateral opacities by 1 view. Correlate clinically for atelectasis, pneumonia, chronic scarring, and/or edema. Antimicrobials,Start/End Dates: Clindamycin Vancomycin Zosyn Impression: R gluteal/ lateral hip/ prostatic multiloculated abscesses after recent Jhoan's gangrene - s/p gluteal collection drain (06/05)--> GPR on stain - unable to have IR-guided drainage of prostate nor cystoscopic drainage given extent of urethral stricture Polymicrobial Jhoan's gangrene of perineum/ scrotum/ R gluteal area - E coli, MSSA, Bacteroides, skin donna - s/p I&D x3 (05/21, 05/23, 05/26) with laparoscopic diverting colostomy (05/23) Intellectual disability Uncontrolled DM (HgbA1c 12.6%) Hx gout Plan: Stop clindamycin- does not have necrotizing disease. Continue vancomycin and zosyn for now pending R gluteal abscess cx- GPR on stain (? Corynebacterium vs C acnes vs Actinomyces vs Lactobacillus vs Clostridium, etc). Will need 6 weeks of IV abx given the prostate abscess can not be drained by IR or cystoscopically. Will need a repeat CT scan close to end of therapy. Will need to follow cx to delineate a more narrowed abx plan. Our service can follow at [facility] as the patient is being discharged back today. Will need a PICC or midline at [facility]. D/w IM. Total time of 75 minutes on this day of encounter spent on, but not limited to review of tests, medical records , complex history , review of external medical records, paper and electronic, ordering medications, tests, and procedures, and independent interpretation of tests. Rafaela Calderon MD [facility] [employer] Work Phone: 06-06-2024 Consult note Associated Order (s): IP CONSULT TO INFECTIOUS DISEASES Images from the original note were not included. [facility] - Infectious Diseases Attending Consult Note Reason for Consult: Prostatic abscess History of Present Illness: 44 y/o M with hx of intellectual disability, hearing loss, uncontrolled DM (HgbA1c 12.6%), HTN, gout who was recently hospitalized at [facility] 05/21-05/30/24 for Jhoan's gangrene involving the R perineal/ gluteal/ scrotal areas with prostate heterogenous enhancement on original CT. He underwent emergent debridement to muscle/ fascia of the R gluteal and perineum on 05/[address] Mercado. Cystoscopy and donohue placement per Urology with urethral dilatation also on 05/21. The original CT questioned a fistula given urinary bubbles in the bladder. He underwent repeat I&D including perineum and scrotum with laparoscopic diverting loop colostomy on 05/23. OR cx grew MSSA, skin donna, torres-S E coli, and Bacteroides. He underwent debridement again on 05/26 at which time source control was achieved. There was no involvement of the rectum or testicles. He was not seen by ID. His blood cx were sterile. He was discharged with keflex and flagyl until 06/04. He was discharged to [facility]. He was found to have a 4 x 8 x 5.7cm multiloculated rim-enhancing fluid collection in the R gluteal region as well as a portion of the collection wrapping around the acetabulum and extending into the R pelvic sidewall; + additional collection along the floor of the pelvis in the expected region of the prostate 3.2 x 2.5 x 4.7cm. He was transferred back to [facility] on 06/04. Repeat imaging at [facility] showed multiple intramuscular fluid collections of the R hip and medial pelvic sidewall/ R sacrum; + multiloculated fluid collection of the prostate. He underwent CT-guided drain placement on 06/05 into the R gluteal abscess--> 8cc of "turbid white pus" was drained and sent for cx. GPRs are on stain and the cx is NGTD. Blood cx are sterile. He is unable to have direct drainage of the prostate by cystoscope due to extensive stricture disease. He is receiving vancomycin, zosyn, and clindamycin. Has listed PCN allergy but tolerates zosyn. Past Medical History: Past Medical History: Diagnosis Date Chavarria's palsy Deaf Diabetes mellitus (HCC) Gout Hypertension Obesity Scoliosis Speech impairment Past Surgical History: Past Surgical History: Procedure Laterality Date APPENDECTOMY LAPAROSCOPIC COLOSTOMY 05/23/2024 Flexible sigmoidoscopy, simple colostomy placement PELVIS DEBRIDEMENT 05/21/2024 jhoan's gangrene PELVIS DEBRIDEMENT 05/26/2024 debridement of perineal wound UPPER GASTROINTESTINAL ENDOSCOPY 06/18/2020 Dr lazar/CAL WOUND DEBRIDEMENT Right 05/23/2024 Second look debridement right buttock & perineum Current Medications: Current Facility-Administered Medications Medication Dose Route Frequency Provider Last Rate Last Admin acetaminophen (Tylenol) tablet 650 mg 650 mg Oral q4h PRN Miranda Mason MD 650 mg at 06/06/24 0527 clindamycin in D5W (Cleocin) IVPB 600 mg 600 mg IntraVENous q8h Miranda Mason MD Stopped at 06/06/24 0458 collagenase 250 UNIT/GM ointment Topical Daily Marycarmen Mcneal, [employer] Given at 06/05/241999 dextrose 5 % infusion 100 mL/hr IntraVENous PRN Miranda Mason MD dextrose 50 % solution 12.5 g 12.5 g IntraVENous PRN Miranda Mason MD enoxaparin (Lovenox) syringe 40 mg 40 mg SubCUTAneous Daily Miranda Mason MD 40 mg at 06/06/24 1116 glucagon (human recombinant) injection 1 mg 1 mg IntraMUSCular PRN Miranda Mason MD glucose oral gel 15 g 15 g Oral PRN Miranda Mason MD hydrOXYzine pamoate (Vistaril) capsule 25 mg 25 mg Oral q8h PRN Miranda Mason MD influenza vaccine tiss-cult subunt (Flucelvax) STANDARD-DOSE injection 0.5 mL 0.5 mL IntraMUSCular Once Miranda Mason MD Insulin Lispro (Humalog) injection 0-12 Units 0-12 Units SubCUTAneous 4x daily AC & HS Luis Noriega MD 4 Units at 06/06/24 1116 naloxone (Narcan) injection 0.4 mg 0.4 mg IntraVENous q5 min PRN Omar Alexandra DO nystatin (Mycostatin) 216372 UNIT/ML suspension 500,000 Units 5 mL Swish & Swallow TID Palvir MD Max 500,000 Units at 06/06/24 1116 ondansetron ODT (Zofran-ODT) disintegrating tablet 4 mg 4 mg Oral q8h PRN Miranda Mason MD Or ondansetron (Zofran) injection 4 mg 4 mg IntraVENous q6h PRN Miranda Mason MD oxyCODONE (Roxicodone) immediate release tablet 5 mg 5 mg Oral q6h PRN Miranda Mason MD 5 mg at 06/05/24 1948 piperacillin-tazobactam (Zosyn) IVPB 4,500 mg 4,500 mg IntraVENous q6h Miranda Mason MD Stopped at 06/06/24 1207 polyethylene glycol (PEG) 3350 (Miralax) packet 17 g 17 g Oral Daily PRN Miranda Mason MD sodium chloride 0.9 % infusion 5-250 mL/hr IntraVENous PRN Miranda Mason MD sodium chloride 0.9% (NS) flush 5-40 mL 5-40 mL IntraVENous q12h Miranda Mason MD 10 mL at 06/06/24 0845 sodium chloride 0.9% (NS) flush 5-40 mL 5-40 mL IntraVENous PRN Miranda Mason MD sodium hypochlorite (Dakin's (HALF-Strength)) 0.25 % external solution Topical Daily Unique Santana MD sodium hypochlorite (Dakins 1/4 strength) external solution Irrigation BID Unique Santana MD Given at 06/05/241999 vancomycin IVPB 1250 mg in 250 mL NS (premix) 1,250 mg IntraVENous q12h Miranda Mason MD Stopped at 06/05/242238 Allergies: Allergies Allergen Reactions Penicillins Rash Reaction occurred greater than 10 years prior to present day. Minimal risk of allergy to penicillin in 2024 - Social History: Social History Socioeconomic History Marital status: Single Spouse name: Not on file Number of children: Not on file Years of education: Not on file Highest education level: Not on file Occupational History Not on file Tobacco Use Smoking status: Never Smokeless tobacco: Never Substance and Sexual Activity Alcohol use: No Alcohol/week: 0.0 standard drinks of alcohol Drug use: No Sexual activity: Not on file Other Topics Concern Not on file Social History Narrative Not on file Social Drivers of Health Financial Resource Strain: Low Risk (06/02/2024) Received from [facility] Overall Financial Resource Strain (CARDIA) Difficulty of Paying Living Expenses: Not hard at all Food Insecurity: No Food Insecurity (06/02/2024) Received from [facility] Hunger Vital Sign Worried About Running Out of Food in the Last Year: Never true Ran Out of Food in the Last Year: Never true Transportation Needs: Unmet Transportation Needs (05/30/2024) Received from [facility] Transportation Source Has lack of transportation kept you from medical appointments or from getting medications?: Yes Has lack of transportation kept you from meetings, work, or from getting things needed for daily living?: Yes Physical Activity: Not on file Stress: No Stress Concern Present (05/30/2024) Received from [facility] [place] [facility] Occupational Health - Occupational Stress Questionnaire Feeling of Stress : Not at all Social Connections: Socially Isolated (06/02/2024) Received from [facility] Social Connection and Isolation Panel [NHANES] Frequency of Communication with Friends and Family: More than three times a week Frequency of Social Gatherings with Friends and Family: More than three times a week Attends Cheondoism Services: Never Active Member of Clubs or Organizations: No Attends Club or Organization Meetings: Never Marital Status: Never Intimate Partner Violence: Unknown (05/30/2024) Received from [facility] Domestic Abuse Assessment Do you feel safe in your relationships at home?: Unable to assess Physical Abuse: Denies [facility] Domestic Abuse - Type of Abuse: Not on file [facility] Domestic Abuse - Time Frame: Not on file [facility] Domestic Abuse - Signs and Symptoms: Not on file Verbal Abuse: Denies [facility] Domestic Abuse - Reported To: Not on file Housing Stability: Low Risk (06/02/2024) Received from [facility] Housing Stability Vital Sign Unable to Pay for Housing in the Last Year: No Number of Times Moved in the Last Year: 0 Homeless in the Last Year: No Family History: Family History Problem Relation Name Age of Onset Cancer Brother Diabetes Mother Asthma Mother High Blood Pressure Mother Heart disease Mother Diabetes Brother Early natural Sister infant -7 months old Review of Systems: Review of Systems Unable to perform ROS: Other Vitals: Patient Vitals for the past 24 hrs: BP Temp Temp src Pulse Resp SpO2 06/06/24 0419 139/84 36.5 C (97.7 F) Temporal 99 16 99 % 06/05/24 1749 144/92 36.4 C (97.5 F) Temporal 106 19 99 % 06/05/24 1527 126/78 36.7 C (98.1 F) Temporal 94 15 100 % 06/05/24 1349 -- -- -- 95 -- 97 % 06/05/24 1345 135/89 -- -- 91 15 100 % 06/05/24 1340 137/79 -- -- 90 16 99 % 06/05/24 1335 130/85 -- -- 91 16 100 % 06/05/24 1330 146/87 -- -- 94 15 100 % 06/05/24 1325 147/86 -- -- 93 13 100 % 06/05/24 1320 -- -- -- 94 19 100 % 06/05/24 1320 147/88 -- -- 93 18 100 % Physical Exam: Physical Exam Vitals and nursing note reviewed. Constitutional: General: He is not in acute distress. HENT: Head: Normocephalic and atraumatic. Right Ear: External ear normal. Left Ear: External ear normal. Nose: Nose normal. No congestion. Mouth/Throat: Mouth: Mucous membranes are moist. Pharynx: Oropharynx is clear. Eyes: General: No scleral icterus. Extraocular Movements: Extraocular movements intact. Cardiovascular: Rate and Rhythm: Tachycardia present. Pulmonary: Effort: Pulmonary effort is normal. No respiratory distress. Breath sounds: No wheezing. Abdominal: General: There is no distension. Palpations: Abdomen is soft. Tenderness: There is no abdominal tenderness. Musculoskeletal: Comments: Gluteal area with bandage and unable to examine scrotal area given extent of packing; + gluteal drain with milky pus Skin: General: Skin is dry. Coloration: Skin is not jaundiced. Findings: No rash. Neurological: Mental Status: He is alert. Comments: Dysarthria; answers yes/ no Labs: Recent Labs 06/04/24164806/05/2431806/06/246 NA 135* 135* 134* K 4.1 4.0 3.8 CL 103 106 104 CO2 25 23 22 BUN 9 8 7* CREATININE 0.52* 0.53* 0.63* GLUCOSE 134* 105* 209* CALCIUM 7.6* 7.4* 7.3* PROT 5.8* 5.5* 5.6* BILITOT 0.2 0.4 0.2 ALKPHOS 225* 195* 202* AST 12 14 24 ALT <6 <6 <6 PROCAL 0.11* -- -- Recent Labs 06/04/24 16406/05/249 06/06/24 0416 WBC 4.2 3.7 3.2* HGB 8.2* 7.6* 7.6* HCT 25.9* 24.2* 23.8* PLT 196 172 180 LYMPHOPCT 26.1 26.8 22.3 MONOPCT 7.6 8.1 7.5 BASOPCT 0.5 0.8 0.6 NEUTROABS 2.7 2.3 2.1 Micro: 06/05- R hip abscess cx- NGTD (mod GPR on stain) 06/04- blood cx- NGTD 05/23- R buttock cx- skin donna, torres-S E coli, Bacteroides 05/21- urine cx- urogenital donna 05/21- scrotal cx- skin donna, MSSA, E coli (yeast on stain) 05/21- scrotal cx- skin donna, MSSA, E coli, Bacteroides 05/21- scrotal cx- MSSA, E coli, Bacteroides 05/21- scrotal cx- MSSA, skin donna, E coli, Bacteroides 05/21- body fluid cx- skin donna, MSSA, E coli, Bacteroides 05/21- blood cx- negative Lines: PIV Radiography/Echo/Other: 06/04- CT abd/pelvis- 1. There are multiple intramuscular fluid collections (suspect abscess) involving the musculature of the posterior and medial right hip which extends along the medial pelvic sidewall and right sacrum. Multiple enlarged likely reactive lymph nodes posterior to the right psoas muscle and along the right iliac chain. 2. Diffuse edema within the subcutaneous fatty tissue. 3. Large right buttocks ulcer. 4. Multiloculated fluid collection of the prostate gland concerning for small abscesses. 5. There are a few small locules of air within the tissue along the inferior scrotum, incompletely characterized, a gas-forming organism cannot be excluded. This patient has a history of Jhoan's gangrene. 6. Bladder wall thickening, concerning for cystitis. 7. Colonic diverticulosis. 8. Splenomegaly. 9. Interval diverting left loop colostomy (05/23/2024) 05/21- CT abd/pelvis- 1. Heterogeneous prostate gland, with ring-enhancing, low-density focus or collection inferiorly and also contiguous with the right perineal region suspicious for nonspecific infectious or inflammatory or phlegmonous process as well as small abscesses, noted above. 2. More extensive soft tissue stranding and edema and probable inflammatory or phlegmonous change and cellulitis in the right gluteal and perineal subcutaneous tissues. 3. Urinary bladder distention, with mild inferior wall thickening and slight intraluminal gas bubbles suspicious for possible fistula formation. Follow-up according. 4. Splenomegaly. 5. Right renal cyst, and mild left renal caliectasis without apparent nephrolithiasis. Select: 06/04- CT pelvis- 1. Rim enhancing multiloculated fluid collection in the right gluteal region with extension into the right pelvic sidewall. This likely represents a large abscess. There is also an abscess noted in the pelvic floor in the expected location of the prostate gland which is not distinctly seen. Extensive inflammation and ulceration noted throughout the perineum and in the soft tissues of the upper thighs. 2. Abnormal ulceration and likely abscess formation in the soft tissues just below the penis. 06/04- CXR- Bilateral opacities by 1 view. Correlate clinically for atelectasis, pneumonia, chronic scarring, and/or edema. Antimicrobials,Start/End Dates: Clindamycin Vancomycin Zosyn Impression: R gluteal/ lateral hip/ prostatic multiloculated abscesses after recent Jhoan's gangrene - s/p gluteal collection drain (06/05)--> GPR on stain - unable to have IR-guided drainage of prostate nor cystoscopic drainage given extent of urethral stricture Polymicrobial Jhoan's gangrene of perineum/ scrotum/ R gluteal area - E coli, MSSA, Bacteroides, skin donna - s/p I&D x3 (05/21, 05/23, 05/26) with laparoscopic diverting colostomy (05/23) Intellectual disability Uncontrolled DM (HgbA1c 12.6%) Hx gout Plan: Stop clindamycin- does not have necrotizing disease. Continue vancomycin and zosyn for now pending R gluteal abscess cx- GPR on stain (? Corynebacterium vs C acnes vs Actinomyces vs Lactobacillus vs Clostridium, etc). Will need 6 weeks of IV abx given the prostate abscess can not be drained by IR or cystoscopically. Will need a repeat CT scan close to end of therapy. Will need to follow cx to delineate a more narrowed abx plan. Our service can follow at [facility] as the patient is being discharged back today. Will need a PICC or midline at [facility]. D/w IM. Total time of 75 minutes on this day of encounter spent on, but not limited to review of tests, medical records , complex history , review of external medical records, paper and electronic, ordering medications, tests, and procedures, and independent interpretation of tests. Rafaela Calderon MD Associated Order(s): IP CONSULT TO PSYCHOLOGY Department of Psychiatry Attending Consult Note Reason for Consult: support during prolonged illness, prolonged health course, MRDD Consulting Physician: Haily Durant, Ph.D IDENTIFYING DATA: The patient is a 44 y.o. male PMH T2DM, Chavarria's palsy, hypertension, gout, MRDD, deafness; pt with recent Jhoan's gangrene, septic shock, acute renal failure, cellulitis s/p debridement x2, and ileostomy creation, admitted from [facility] on 06/04/2024 with New pelvic abscess. History Obtained From: patient, EMR HISTORY OF PRESENT ILLNESS: Pt was alert, oriented, and participated. Pt able to respond to questions, vague historian. Pt currently denying distress, pt denied depressive symptoms ("not at this time"), and endorsed some mild anxiety. Pt stated that his pain is better controlled at this time, and is 5 out of 10. When asked re: medical issues, pt stated "just want to get better." When discussing stress/ anxiety, pt indicated that his mother in this hospital about 13 years ago. Pt denied any SI/HI. At this time, no manic, no psychotic symptoms. Past Psychiatric History: Pt denied any previous psychiatric admissions and no previous suicide attempts. Pt stated that he is currently not in counseling. Pt is currently not taking any psychotropic medications. Pt currently minimizing distress; pt very future oriented. Drug and Alcohol History: Pt denied any alcohol and drug abuse history. Pt reported rare alcohol use. Social History: Pt stated that he has 2 brothers who are supportive. His mother at this hospital 13 years ago. Pt reported that he graduated high school. MENTAL STATUS EXAM Mental Status Exam: Appearance: hospital gown Behavior: cooperative Activity normal Speech: normal rate, speech impairment Mood: "fine" , Affect: congruent with mood Associations: goal directed Thought content: concrete Thought process: organized Orientation: oriented in all spheres Attention good Concentration good Insight: fair Judgment: fair Suicidal Intentions: no Suicidal Plan: no Impression : Anxiety, mild provisional Cognitive Delay PLAN: Pt participated, some vague responses, but currently denying distress; he denied depressive symptoms, endorsed some mild anxiety symptoms. Focused on supportive intervention. No SI/HI, pt is very future oriented. Pt is accepting of care. Pt with multiple medical issues, but at this time does not appear distressed. Will follow as able during this hospital stay. Pt voiced understanding of all treatment plans. Thank you for consulting our services. Associated Order(s): IP CONSULT TO UROLOGY Images from the original note were not included. Urology Inpatient Consultation 06/04/2024 HISTORY OF PRESENT ILLNESS: The patient is a 44 y.o. male known (OR cs) to our service and admitted for "New pelvic abscess in s/o recent jhoan gangrene". Urology consulted for prostatic abscess. HE was recently admitted at [facility] for jhoan's gangrene of the perineum, now s/p debridements and colostomy Upon evaluation, patient is resting comfortably in bed. He states he is deaf but can hear me and he does respond appropriately to my questions. I discussed with patient need to possibly drain the prostate abscess today. General surgery has seen patient and plans for IR drainage of hip abscess along with IV abx Urologic hx 05/21/24 - OR Bal 44 y.o. 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 General surgery had already debrided him, however, they could not get bladder drainage. I was called as an intraoperative consult to place the donohue Patient had diffuse stricture disease, torres urethral stricture disease, I was able to dilate the metaus from 12F to 26F with haymen sounds. I then placed the 21 F cystoscope into the urethra and was able to place a wire into the bladder, confirmed under fluoroscopy. I then used the haymens and dilated the urethra from 12F to 20F, it was very dense and dilating through very dense tissue. I then placed the cytoscope into the bladder. I was unable to visualize much given the hematuria. I placed a 20F [place] over the wire. The catheter irrigated easily. I did a cystogram to confirm placement to confirm no bladder injury with dilation. Cystogram revealed no extravasation 20CC placed in the catheter balloon He will remain admitted at [facility], will need follow up with urology as an outpatient. Will keep the catheter in place ED/Hospital workup Cr 0.43, WBC 4, HGB 7.[address] - donohue in place, c/o 2.8cm prostate abscess, multiple intramusclar fluid collections AF HDS PAST MEDICAL HISTORY: Past Medical History: Diagnosis Date Chavarria's palsy Deaf Diabetes mellitus (HCC) Gout Hypertension Obesity Scoliosis Speech impairment PAST SURGICAL HISTORY: Past Surgical History: Procedure Laterality Date APPENDECTOMY LAPAROSCOPIC COLOSTOMY 05/23/2024 Flexible sigmoidoscopy, simple colostomy placement PELVIS DEBRIDEMENT 05/21/2024 jhoan's gangrene PELVIS DEBRIDEMENT 05/26/2024 debridement of perineal wound UPPER GASTROINTESTINAL ENDOSCOPY 06/18/2020 Dr lazar/CAL WOUND DEBRIDEMENT Right 05/23/2024 Second look debridement right buttock & perineum ALLERGIES: Allergies Allergen Reactions Penicillins Rash Reaction occurred greater than 10 years prior to present day. Minimal risk of allergy to penicillin in 2024 - [facility] [place] MEDICATIONS: Medications Prior to Admission Medication Sig Dispense Refill Last Dose/Taking acetaminophen (Tylenol) 325 MG tablet Take 2 tablets (650 mg) by mouth every 4 hours as needed for moderate pain (4-6) or headaches for up to 10 days. [] cephalexin (Keflex) 500 MG capsule Take 2 capsules (1,000 mg) by mouth 3 times daily for 4 days. collagenase 250 UNIT/GM ointment Apply topically as needed (Wound care). collagenase 250 UNIT/GM ointment Apply topically daily. dextrose 5 % solution Infuse 100 mL/hr into a venous catheter as needed (Blood sugar less than 70mg/dL). hydrOXYzine pamoate (Vistaril) 25 MG capsule Take 1 capsule (25 mg) by mouth every 8 hours as needed for itching for up to 10 days. Insulin Lispro (Humalog) 100 UNIT/ML solution injection Inject 0-12 Units under the skin 3 times daily (with meals) AND 0-12 Units Nightly. [] metroNIDAZOLE (Flagyl) 500 MG tablet Take 1 tablet (500 mg) by mouth every 8 hours for 4 days. ondansetron ODT (Zofran-ODT) 4 MG disintegrating tablet Take 1 tablet (4 mg) by mouth every 8 hours as needed for nausea or vomiting for up to 7 days. [] oxyCODONE (Roxicodone) 5 MG immediate release tablet Take 1 tablet (5 mg) by mouth every 6 hours as needed for moderate pain (4-6) for up to 5 days. [] sodium hypochlorite (Dakin's, HALF-Strength,) 0.25 % external solution Irrigate with as directed Once for 1 dose. FAMILY HISTORY: Family History Problem Relation Name Age of Onset Cancer Brother Diabetes Mother Asthma Mother High Blood Pressure Mother Heart disease Mother Diabetes Brother Early natural Sister infant -7 months old Social History: Social History Tobacco Use Smoking Status Never Smokeless Tobacco Never Social History Substance and Sexual Activity Alcohol Use No Alcohol/week: 0.0 standard drinks of alcohol ROS: See HPI PHYSICAL EXAM: VITALS: Vitals: 06/04/24 1841 06/04/24 1913 06/04/24 2345 06/05/24 0542 BP: 127/88 (!) 141/81 153/92 149/88 BP Location: Right arm Left arm Patient Position: Lying Lying Pulse: 98 102 98 93 Resp: 16 16 16 16 Temp: 37.1 C (98.8 F) 36.6 C (97.8 F) TempSrc: Temporal Temporal SpO2: 95% 95% 100% 100% Weight: General: Alert, in no acute distress Head: Normocephalic, atraumatic Neck: supple, trachea is midline, no obvious masses Respiratory: normal effort, no audible wheezes Cardiovascular: regular pulse and no cyanosis Musculoskeletal: moving all extremities, normal tone Skin: warm and dry Psych: normal mood and affect, oriented Abdomen: soft, non distended, non tender : donohue draining yellow urine, appears to be granulation tissue within scrotal opening / wound, there is no fluctuance or purulent drainage seen within the scrotum, the wound edges appear healthy and there is no necrotic tissue seen DATA: LABS: BMP: Lab Results Component Value Date NA 135 (L) 06/05/2024 K 4.0 06/05/2024 CL 106 06/05/2024 CO2 23 06/05/2024 BUN 8 06/05/2024 CREATININE 0.53 (L) 06/05/2024 CALCIUM 7.4 (L) 06/05/2024 GLUCOSE 105 (H) 06/05/2024 CBC: Lab Results Component Value Date WBC 3.7 06/05/2024 HGB 7.6 (L) 06/05/2024 HCT 24.2 (L) 06/05/2024 MCV 83.2 06/05/2024 PLT 172 06/05/2024 Urinalysis: No results found for: UA Urine Culture: No components found for: "UCX" RADIOLOGY: POCT glucose meter Performed by: [facility], [address] [place] [id number] CLIA ID: [id number] POCT glucose meter Performed by: [facility], [address] [place] [id number] CLIA ID: [id number] IMPRESSION: 44 y.o. male with urethral stricture disease s/p urethral dilation and donohue placement. He also presents with concern for prostate abscess / fluid collection in setting of multiple other fluid collections and recent perineal Jhoan's debridement with colostomy formation PLAN: - Patient NPO - will discuss IR prostate abscess drainage while having drainage of other fluid/abscess collections. Would be difficult to perform cystoscopically due to extensive stricture disease - Maintain donohue catheter. Please do not remove without discussing with urology. Insertion in the OR required dilation and placement of donohue by urology - IV abx - adjust based on cx sensitivities. Would send any IR samples for culture - Trend Cr - Follow up with urology for continued outpatient management of prostate and urethral stricture findings - Please page the power plant operations manager (using power plant operations manager finder) urology resident with any questions or concerns Tito Reid MD 06/05/2024 5:55 AM The history and physical has been reviewed. The pertinent findings from the history of present illness, past medical history, family history, social history, review of systems, have been noted and confirmed that are unchanged. Discussed with the urology resident. Agree with assessment and plan Images from the original note were not included. Pharmacy Managed Vancomycin Dosing Service Consult Note Consult Date: 06/05/24 Patient Name: Miranda Ro Allergies: Penicillins Age: 44 y.o. Sex: male Estimated body mass index is 35.15 kg/m as calculated from the following: Height as of 05/30/24: 1.524 m (5'). Weight as of this encounter: 81.6 kg (180 lb). DW: 62.6 kg Lab Results Component Value Date CREATININE 0.52 (L) 06/04/2024 CREATININE 0.61 (L) 06/03/2024 BUN 9 06/04/2024 BUN 11 06/03/2024 WBC 4.2 06/04/2024 WBC 4.4 06/03/2024 Calculated CrCl: capped @ 125 mL/min (Cockcroft-Gault) Consulted By: Dr. Miranda Mason Infectious Diagnosis: Skin & Soft Tissue Infection (AUC Goal 400-600 mg/L*hr) Random Vancomycin Level Due: 06/05/24 @ 1600 Antimicrobials: Patient recently received an antibiotic (last 12 hours) Date/Time Action Medication Dose Rate 06/04/24 2355 New Bag piperacillin-tazobactam (Zosyn) IVPB 4,500 mg 4,500 mg 200 mL/hr 06/04/24 2314 New Bag clindamycin in D5W (Cleocin) IVPB 600 mg 600 mg 100 mL/hr 06/04/24 1907 New Bag cefepime (Maxipime) 2 g in sodium chloride 0.9 % 50 mL IVPB Mini-Bag Plus 2 g 100 mL/hr Assessment/Plan: Doses, serum creatinine, and vancomycin levels interfaced automatically to [email or web address] and data has been analyzed and interpreted. Start Vancomycin 2000 mg LD, followed by 1250 mg every 8 hours based on patient age, weight, renal function, and infectious diagnosis (20 mg/kg). Predicted AUC = 577 mg/L*hr (goal 400-600 mg/L*hr) PAUC = 87% (probability that AUC is >400 mg/L*hr) Pconc = 28% (probability that Ctrough is above 20 mcg/mL (toxicity)) Will assess random level on 06/05/24 and adjust as appropriate. Trend serum creatinine. Orders placed. Thank you for this consult. Please secure text or call with questions. DATE: 06/05/24 TIME: 1:17 AM Keesha Renae RPh Clinical Pharmacist Available via Secure Chat documented in this encounter [facility] 06-06-2024 Note Formatting of this n ote might be different from the original. TCC PROGRESS NOTE: Pt remains in H5. Pt did have R hip accordion drain placed for abscess yesterday. Cultures were sent. ID is consulted. Pt is on iv clindamycin, zosyn and vancomycin. He has a consult to urology. Per bedside RN, urology thinking possible suprapubic catheter placement. Spoke with pt's brother Georges this am by telephone. Georges states that pt does not have official HCPOA selected. SW will try to see if pt and family interested. Plan for return to [facility] at discharge. Tcc will continue to follow. [facility] 06-06-2024 Note Formatting of this n ote might be different from the original. TCC PROGRESS NOTE: Pt remains in H5. Pt did have R hip accordion drain placed for abscess yesterday. Cultures were sent. ID is consulted. Pt is on iv clindamycin, zosyn and vancomycin. He has a consult to urology. Per bedside RN, urology thinking possible suprapubic catheter placement. Spoke with pt's brother Georges this am by telephone. Georges states that pt does not have official HCPOA selected. SW will try to see if pt and family interested. Plan for return to [facility] at discharge. Tcc will continue to follow. [facility] 06-06-2024 Plan of care note Images from the original note were not included. Urology Plan of Care IN normal sterile fashion, 0.035 glidewire placed through 20F donohue. Donohue removed. 20F susanville donohue inserted over the wire. 20cc placed into balloon and wire removed. Return of yellow urine. Patient tolerated well Tito Reid MD Urology PGY-3 06/06/2024 10:19 AM To guarantee prompt response, please page CHEMICAL PROCESS OPERATOR urology resident (using power plant operations manager finder) with any questions or concerns. [facility] Work Phone: 06-06-2024 Note Formatting of this n ote might be different from the original. Return Referral placed to [facility] via [facility] per TCC request. Await review and response regarding ability to accept. TCC notified. [facility] 06-06-2024 Note Formatting of this n ote might be different from the original. Return Referral placed to [facility] per TCC request. Await review and response regarding ability to accept. TCC notified. [facility] 06-06-2024 Note Return Referral plac ed to [facility] per TCC request. Await review and response regarding ability to accept. TCC notified. [facility] 06-05-2024 Plan of care note Problem: Knowledge Deficit Goal: Patient/family/caregiver demonstrates understanding of disease process, treatment plan, medications, and discharge instructions Outcome: Progressing Problem: Potential for Compromised Skin Integrity Goal: Skin Integrity is Maintained or Improved Outcome: Progressing Goal: Nutritional status is improving Outcome: Progressing Problem: Urinary Incontinence Goal: Perineal skin integrity is maintained or improved Outcome: Progressing T [facility] 06-05-2024 Consult note Associated Order (s): IP CONSULT TO PSYCHOLOGY Department of Psychiatry Attending Consult Note Reason for Consult: support during prolonged illness, prolonged health course, MRDD Consulting Physician: Haily Durant, Ph.D IDENTIFYING DATA: The patient is a 44 y.o. male PMH T2DM, Chavarria's palsy, hypertension, gout, MRDD, deafness; pt with recent Jhoan's gangrene, septic shock, acute renal failure, cellulitis s/p debridement x2, and ileostomy creation, admitted from [facility] on 06/04/2024 with New pelvic abscess. History Obtained From: patient, EMR HISTORY OF PRESENT ILLNESS: Pt was alert, oriented, and participated. Pt able to respond to questions, vague historian. Pt currently denying distress, pt denied depressive symptoms ("not at this time"), and endorsed some mild anxiety. Pt stated that his pain is better controlled at this time, and is 5 out of 10. When asked re: medical issues, pt stated "just want to get better." When discussing stress/ anxiety, pt indicated that his mother in this hospital about 13 years ago. Pt denied any SI/HI. At this time, no manic, no psychotic symptoms. Past Psychiatric History: Pt denied any previous psychiatric admissions and no previous suicide attempts. Pt stated that he is currently not in counseling. Pt is currently not taking any psychotropic medications. Pt currently minimizing distress; pt very future oriented. Drug and Alcohol History: Pt denied any alcohol and drug abuse history. Pt reported rare alcohol use. Social History: Pt stated that he has 2 brothers who are supportive. His mother at this hospital 13 years ago. Pt reported that he graduated high school. MENTAL STATUS EXAM Mental Status Exam: Appearance: hospital gown Behavior: cooperative Activity normal Speech: normal rate, speech impairment Mood: "fine" , Affect: congruent with mood Associations: goal directed Thought content: concrete Thought process: organized Orientation: oriented in all spheres Attention good Concentration good Insight: fair Judgment: fair Suicidal Intentions: no Suicidal Plan: no Impression : Anxiety, mild provisional Cognitive Delay PLAN: Pt participated, some vague responses, but currently denying distress; he denied depressive symptoms, endorsed some mild anxiety symptoms. Focused on supportive intervention. No SI/HI, pt is very future oriented. Pt is accepting of care. Pt with multiple medical issues, but at this time does not appear distressed. Will follow as able during this hospital stay. Pt voiced understanding of all treatment plans. Thank you for consulting our services. [facility] 06-05-2024 manager corporate Note Patient seen by myself and medicine team during bedside rounds this morning at 8:30 AM. Please refer to my attestation of yesterday's H&P for my notes. T [facility] Phone: 06-05-2024 Procedure note Interventional Radiology Brief Postprocedure Note Procedure: right gluteal fluid collection. CT guided abscess fluid collection drainage Preprocedure Diagnosis: No associated diagnoses for current labs Postprocedure Diagnosis: no change Staff: Staff Role Miranda Dong DO Radiologist Corie Kramer, bath mixer Nurse Audrey Dupree Tower Crane Operator Description of procedure: 4.8 x 3.9cm fluid [id number] Fr drain placed in the right gluteal fluid collection from antlateral approach. Estimated Blood Loss: None Medications Medications (Filter: Administrations occurring from 1357 to 1357 on 06/05/24) As of 06/05/24 1357 None Specimens No specimens collected Findings: 10 [address] drain placed with Ct guidance. Plan: observe for 2 hours. Complications: None Anesthesia: Moderate Sedation See detailed result report with images in PACS. The patient tolerated the procedure well without incident or complication and is in stable condition. [facility] Phone: 06-05-2024 Evaluation note Interventional Radiology Preprocedure Note Reason for Procedure: right gluteal fluid collection. Drainage tube placement. Pelvic abscess in male (CMS/HCC) (HCC) Wound of left buttock, subsequent encounter Past Surgical History: Procedure Laterality Date APPENDECTOMY LAPAROSCOPIC COLOSTOMY 05/23/2024 Flexible sigmoidoscopy, simple colostomy placement PELVIS DEBRIDEMENT 05/21/2024 jhoan's gangrene PELVIS DEBRIDEMENT 05/26/2024 debridement of perineal wound UPPER GASTROINTESTINAL ENDOSCOPY 06/18/2020 Dr lazar/CAL WOUND DEBRIDEMENT Right 05/23/2024 Second look debridement right buttock & perineum Relevant review of systems: NA Relevant Labs: Lab Results Component Value Date CREATININE 0.53 (L) 06/05/2024 EGFR >90.0 06/05/2024 INR 1.1 06/05/2024 PROTIME 12.1 (H) 06/05/2024 Planned Sedation/Anesthesia: Moderate Sedation, II (hard and soft palate, upper portion of tonsils anduvula visible) Airway assessment: normal Directed physical examination: NA. ASA Score: ASA 2 - Patient with mild systemic disease with no functional limitations Benefits, risks and alternatives of procedure and planned sedation have been discussed with the patient and/or their access services representative. All questions answered and they agree to proceed. [facility] 06-05-2024 Nurse Note Patient arrived to Radiology department from [facility] for abscess fluid collection . Dr. Dong in to discuss procedure with patient and informed consent obtained. Patient assisted to CT table and placed supine. product management analyst applied, vital signs obtained and monitored throughout procedure. 7mL purulent drainage aspirated and sent to lab. 10fr pigtail to accordion drain placed to right lower abdomen. Stayfix dressing and tegaderm applied to site. Patient tolerated procedure well. Report called to floor RN and patient taken to [facility] via bed. T [facility] 06-05-2024 Nurse Note Patient arrived to Radiology department from [facility] for abscess fluid collection . Dr. Dong in to discuss procedure with patient and informed consent obtained. Patient assisted to CT table and placed supine. product management analyst applied, vital signs obtained and monitored throughout procedure. 7mL purulent drainage aspirated and sent to lab. 10fr pigtail to accordion drain placed to right lower abdomen. Stayfix dressing and tegaderm applied to site. Patient tolerated procedure well. Report called to floor RN and patient taken to [id number] via bed. documented in this encounter [facility] 06-05-2024 Consult note Associated Order (s): IP CONSULT TO UROLOGY Images from the original note were not included. Urology Inpatient Consultation 06/04/2024 HISTORY OF PRESENT ILLNESS: The patient is a 44 y.o. male known (OR cs) to our service and admitted for "New pelvic abscess in s/o recent jhoan gangrene". Urology consulted for prostatic abscess. HE was recently admitted at [facility] for jhoan's gangrene of the perineum, now s/p debridements and colostomy Upon evaluation, patient is resting comfortably in bed. He states he is deaf but can hear me and he does respond appropriately to my questions. I discussed with patient need to possibly drain the prostate abscess today. General surgery has seen patient and plans for IR drainage of hip abscess along with IV abx Urologic hx 05/21/24 - OR Bal 44 y.o. 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 General surgery had already debrided him, however, they could not get bladder drainage. I was called as an intraoperative consult to place the donohue Patient had diffuse stricture disease, torres urethral stricture disease, I was able to dilate the metaus from 12F to 26F with haymen sounds. I then placed the 21 F cystoscope into the urethra and was able to place a wire into the bladder, confirmed under fluoroscopy. I then used the haymens and dilated the urethra from 12F to 20F, it was very dense and dilating through very dense tissue. I then placed the cytoscope into the bladder. I was unable to visualize much given the hematuria. I placed a 20F [place] over the wire. The catheter irrigated easily. I did a cystogram to confirm placement to confirm no bladder injury with dilation. Cystogram revealed no extravasation 20CC placed in the catheter balloon He will remain admitted at [facility], will need follow up with urology as an outpatient. Will keep the catheter in place ED/Hospital workup Cr 0.43, WBC 4, HGB 7.[address] - donohue in place, c/o 2.8cm prostate abscess, multiple intramusclar fluid collections AF HDS PAST MEDICAL HISTORY: Past Medical History: Diagnosis Date Chavarria's palsy Deaf Diabetes mellitus (HCC) Gout Hypertension Obesity Scoliosis Speech impairment PAST SURGICAL HISTORY: Past Surgical History: Procedure Laterality Date APPENDECTOMY LAPAROSCOPIC COLOSTOMY 05/23/2024 Flexible sigmoidoscopy, simple colostomy placement PELVIS DEBRIDEMENT 05/21/2024 jhoan's gangrene PELVIS DEBRIDEMENT 05/26/2024 debridement of perineal wound UPPER GASTROINTESTINAL ENDOSCOPY 06/18/2020 Dr lazar/CAL WOUND DEBRIDEMENT Right 05/23/2024 Second look debridement right buttock & perineum ALLERGIES: Allergies Allergen Reactions Penicillins Rash Reaction occurred greater than 10 years prior to present day. Minimal risk of allergy to penicillin in 2024 - [facility] [place] MEDICATIONS: Medications Prior to Admission Medication Sig Dispense Refill Last Dose/Taking acetaminophen (Tylenol) 325 MG tablet Take 2 tablets (650 mg) by mouth every 4 hours as needed for moderate pain (4-6) or headaches for up to 10 days. [] cephalexin (Keflex) 500 MG capsule Take 2 capsules (1,000 mg) by mouth 3 times daily for 4 days. collagenase 250 UNIT/GM ointment Apply topically as needed (Wound care). collagenase 250 UNIT/GM ointment Apply topically daily. dextrose 5 % solution Infuse 100 mL/hr into a venous catheter as needed (Blood sugar less than 70mg/dL). hydrOXYzine pamoate (Vistaril) 25 MG capsule Take 1 capsule (25 mg) by mouth every 8 hours as needed for itching for up to 10 days. Insulin Lispro (Humalog) 100 UNIT/ML solution injection Inject 0-12 Units under the skin 3 times daily (with meals) AND 0-12 Units Nightly. [] metroNIDAZOLE (Flagyl) 500 MG tablet Take 1 tablet (500 mg) by mouth every 8 hours for 4 days. ondansetron ODT (Zofran-ODT) 4 MG disintegrating tablet Take 1 tablet (4 mg) by mouth every 8 hours as needed for nausea or vomiting for up to 7 days. [] oxyCODONE (Roxicodone) 5 MG immediate release tablet Take 1 tablet (5 mg) by mouth every 6 hours as needed for moderate pain (4-6) for up to 5 days. [] sodium hypochlorite (Dakin's, HALF-Strength,) 0.25 % external solution Irrigate with as directed Once for 1 dose. FAMILY HISTORY: Family History Problem Relation Name Age of Onset Cancer Brother Diabetes Mother Asthma Mother High Blood Pressure Mother Heart disease Mother Diabetes Brother Early natural Sister -7 months old Social History: Social History Tobacco Use Smoking Status Never Smokeless Tobacco Never Social History Substance and Sexual Activity Alcohol Use No Alcohol/week: 0.0 standard drinks of alcohol ROS: See HPI PHYSICAL EXAM: VITALS: Vitals: 06/04/24 1841 06/04/24 1913 06/04/24 2345 06/05/24 0542 BP: 127/88 (!) 141/81 153/92 149/88 BP Location: Right arm Left arm Patient Position: Lying Lying Pulse: 98 102 98 93 Resp: 16 16 16 16 Temp: 37.1 C (98.8 F) 36.6 C (97.8 F) TempSrc: Temporal Temporal SpO2: 95% 95% 100% 100% Weight: General: Alert, in no acute distress Head: Normocephalic, atraumatic Neck: supple, trachea is midline, no obvious masses Respiratory: normal effort, no audible wheezes Cardiovascular: regular pulse and no cyanosis Musculoskeletal: moving all extremities, normal tone Skin: warm and dry Psych: normal mood and affect, oriented Abdomen: soft, non distended, non tender : donohue draining yellow urine, appears to be granulation tissue within scrotal opening / wound, there is no fluctuance or purulent drainage seen within the scrotum, the wound edges appear healthy and there is no necrotic tissue seen DATA: LABS: BMP: Lab Results Component Value Date NA 135 (L) 06/05/2024 K 4.0 06/05/2024 CL 106 06/05/2024 CO2 23 06/05/2024 BUN 8 06/05/2024 CREATININE 0.53 (L) 06/05/2024 CALCIUM 7.4 (L) 06/05/2024 GLUCOSE 105 (H) 06/05/2024 CBC: Lab Results Component Value Date WBC 3.7 06/05/2024 HGB 7.6 (L) 06/05/2024 HCT 24.2 (L) 06/05/2024 MCV 83.2 06/05/2024 PLT 172 06/05/2024 Urinalysis: No results found for: UA Urine Culture: No components found for: "UCX" RADIOLOGY: POCT glucose meter Performed by: [email or web address] [facility], [address] [place] [id number] CLIA ID: [id number] POCT glucose meter Performed by: [email or web address] [facility], [address] [place] [id number] CLIA ID: [id number] IMPRESSION: 44 y.o. male with urethral stricture disease s/p urethral dilation and donohue placement. He also presents with concern for prostate abscess / fluid collection in setting of multiple other fluid collections and recent perineal Jhoan's debridement with colostomy formation PLAN: - Patient NPO - will discuss IR prostate abscess drainage while having drainage of other fluid/abscess collections. Would be difficult to perform cystoscopically due to extensive stricture disease - Maintain donohue catheter. Please do not remove without discussing with urology. Insertion in the OR required dilation and placement of donohue by urology - IV abx - adjust based on cx sensitivities. Would send any IR samples for culture - Trend Cr - Follow up with urology for continued outpatient management of prostate and urethral stricture findings - Please page the power plant operations manager (using power plant operations manager finder) urology resident with any questions or concerns Tito Reid MD 06/05/2024 5:55 AM The history and physical has been reviewed. The pertinent findings from the history of present illness, past medical history, family history, social history, review of systems, have been noted and confirmed that are unchanged. Discussed with the urology resident. Agree with assessment and plan [employer] Work Phone: 06-05-2024 Consult note Formatting of th is note is different from the original. Images from the original note were not included. Pharmacy Managed Vancomycin Dosing Service Consult Note Consult Date: 06/05/24 Patient Name: Miranda Ro Allergies: Penicillins Age: 44 y.o. Sex: male Estimated body mass index is 35.15 kg/m as calculated from the following: Height as of 05/30/24: 1.524 m (5'). Weight as of this encounter: 81.6 kg (180 lb). DW: 62.6 kg Lab Results Component Value Date CREATININE 0.52 (L) 06/04/2024 CREATININE 0.61 (L) 06/03/2024 BUN 9 06/04/2024 BUN 11 06/03/2024 WBC 4.2 06/04/2024 WBC 4.4 06/03/2024 Calculated CrCl: capped @ 125 mL/min (Cockcroft-Gault) Consulted By: Dr. Miranda Mason Infectious Diagnosis: Skin & Soft Tissue Infection (AUC Goal 400-600 mg/L*hr) Random Vancomycin Level Due: 06/05/24 @ 1600 Antimicrobials: Patient recently received an antibiotic (last 12 hours) Date/Time Action Medication Dose Rate 06/04/24 2355 New Bag piperacillin-tazobactam (Zosyn) IVPB 4,500 mg 4,500 mg 200 mL/hr 06/04/24 2314 New Bag clindamycin in D5W (Cleocin) IVPB 600 mg 600 mg 100 mL/hr 06/04/24 1907 New Bag cefepime (Maxipime) 2 g in sodium chloride 0.9 % 50 mL IVPB Mini-Bag Plus 2 g 100 mL/hr Assessment/Plan: Doses, serum creatinine, and vancomycin levels interfaced automatically to [email or web address] and data has been analyzed and interpreted. Start Vancomycin 2000 mg LD, followed by 1250 mg every 8 hours based on patient age, weight, renal function, and infectious diagnosis (20 mg/kg). Predicted AUC = 577 mg/L*hr (goal 400-600 mg/L*hr) PAUC = 87% (probability that AUC is >400 mg/L*hr) Pconc = 28% (probability that Ctrough is above 20 mcg/mL (toxicity)) Will assess random level on 06/05/24 and adjust as appropriate. Trend serum creatinine. Orders placed. Thank you for this consult. Please secure text or call with questions. DATE: 06/05/24 TIME: 1:17 AM Keesha Renae RPh Clinical Pharmacist Available via Secure Chat [facility] 06-04-2024 Emergency department Note Pt being transported to floor, no signs of distress, alert, equal chest rise. Antibiotics running. [facility] 06-04-2024 Emergency department Note Pt being transported to floor, no signs of distress, alert, equal chest rise. Antibiotics running. EMERGENCY DEPARTMENT ENCOUNTER Pt Name: Miranda Ro Birthdate 1980 Date of evaluation: 06/04/2024 ED Provider: Tamar Hitchcock MD CHIEF COMPLAINT Chief Complaint Patient presents with Wound Infection Patient to ED #30 via squad for a wound infection to his buttocks. MRDD from [facility] for evaluation. HISTORY OF PRESENT ILLNESS (Location/Symptom, Timing/Onset, Context/Setting, Quality, Duration, Modifying Factors, Severity) Note limiting factors. HPI Miranda Ro is a 44 y.o. male who presents to the emergency department for wound check. 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 Currently living at [facility]. Had a CT scan done today because he was still having some pain in his buttock which showed multiple abscesses. Brought into the emergency department for evaluation. Patient states that he is just having pain to his gluteal area but has no other complaints. Nursing Notes were reviewed. REVIEW OF SYSTEMS Review of Systems Pertinent positives and negatives per HPI PAST MEDICAL HISTORY Past Medical History: Diagnosis Date Chavarria's palsy Deaf Diabetes mellitus (HCC) Gout Hypertension Obesity Scoliosis Speech impairment SURGICAL HISTORY Past Surgical History: Procedure Laterality Date APPENDECTOMY LAPAROSCOPIC COLOSTOMY 05/23/2024 Flexible sigmoidoscopy, simple colostomy placement PELVIS DEBRIDEMENT 05/21/2024 jhoan's gangrene PELVIS DEBRIDEMENT 05/26/2024 debridement of perineal wound UPPER GASTROINTESTINAL ENDOSCOPY 06/18/2020 Dr lazar/B WOUND DEBRIDEMENT Right 05/23/2024 Second look debridement right buttock & perineum CURRENT MEDICATIONS Previous Medications ACETAMINOPHEN (TYLENOL) 325 MG TABLET Take 2 tablets (650 mg) by mouth every 4 hours as needed for moderate pain (4-6) or headaches for up to 10 days. COLLAGENASE 250 UNIT/GM OINTMENT Apply topically as needed (Wound care). COLLAGENASE 250 UNIT/GM OINTMENT Apply topically daily. DEXTROSE 5 % SOLUTION Infuse 100 mL/hr into a venous catheter as needed (Blood sugar less than 70mg/dL). HYDROXYZINE PAMOATE (VISTARIL) 25 MG CAPSULE Take 1 capsule (25 mg) by mouth every 8 hours as needed for itching for up to 10 days. INSULIN LISPRO (HUMALOG) 100 UNIT/ML SOLUTION INJECTION Inject 0-12 Units under the skin 3 times daily (with meals) AND 0-12 Units Nightly. ONDANSETRON ODT (ZOFRAN-ODT) 4 MG DISINTEGRATING TABLET Take 1 tablet (4 mg) by mouth every 8 hours as needed for nausea or vomiting for up to 7 days. OXYCODONE (ROXICODONE) 5 MG IMMEDIATE RELEASE TABLET Take 1 tablet (5 mg) by mouth every 6 hours as needed for moderate pain (4-6) for up to 5 days. ALLERGIES Penicillins FAMILY HISTORY Family History Problem Relation Name Age of Onset Cancer Brother Diabetes Mother Asthma Mother High Blood Pressure Mother Heart disease Mother Diabetes Brother Early natural Sister -7 months old SOCIAL HISTORY Social History Socioeconomic History Marital status: Single Tobacco Use Smoking status: Never Smokeless tobacco: Never Substance and Sexual Activity Alcohol use: No Alcohol/week: 0.0 standard drinks of alcohol Drug use: No Social Drivers of Health Financial Resource Strain: Low Risk (06/02/2024) Received from [facility] Overall Financial Resource Strain (CARDIA) Difficulty of Paying Living Expenses: Not hard at all Food Insecurity: No Food Insecurity (06/02/2024) Received from [facility] Hunger Vital Sign Worried About Running Out of Food in the Last Year: Never true Ran Out of Food in the Last Year: Never true Transportation Needs: Unmet Transportation Needs (05/30/2024) Received from [facility] SDOH Transportation Source Has lack of transportation kept you from medical appointments or from getting medications?: Yes Has lack of transportation kept you from meetings, work, or from getting things needed for daily living?: Yes Stress: No Stress Concern Present (05/30/2024) Received from [facility] Occupational Health - Occupational Stress Questionnaire Feeling of Stress : Not at all Social Connections: Socially Isolated (06/02/2024) Received from [facility] Social Connection and Isolation Panel [NHANES] Frequency of Communication with Friends and Family: More than three times a week Frequency of Social Gatherings with Friends and Family: More than three times a week Attends Cheondoism Services: Never Active Member of Clubs or Organizations: No Attends Club or Organization Meetings: Never Marital Status: Never Intimate Partner Violence: Unknown (05/30/2024) Received from [facility] Domestic Abuse Assessment Do you feel safe in your relationships at home?: Unable to assess Physical Abuse: Denies Verbal Abuse: Denies Housing Stability: Low Risk (06/02/2024) Received from [facility] Housing Stability Vital Sign Unable to Pay for Housing in the Last Year: No Number of Times Moved in the Last Year: 0 Homeless in the Last Year: No SCREENINGS PHYSICAL EXAM ED Triage Vitals [06/04/24 1524] Temp Heart Rate Resp BP 36.9 C (98.4 F) 108 24 (!) 131/90 SpO2 Temp Source Heart Rate Source Patient Position 100 % Oral Monitor -- BP Location FiO2 (%) -- -- Physical Exam Well-appearing male in no acute distress. Vital signs reviewed and notable for tachycardia and tachypnea. Lungs clear to auscultation bilaterally Abdomen soft and nontender. Patient has a large surgical wound to the right gluteal area with packing inside of it. There is some surrounding erythema but no significant warmth. There is no crepitus or induration. He also has a wound just below his penis that is gaping with some surrounding erythema as well. There is no significant foul odor. DIAGNOSTIC RESULTS RADIOLOGY (Per Emergency Physician): Interpretation per the Radiologist below, if available at the time of this note: No orders to display LABS: Labs Reviewed BLOOD CULTURE BLOOD CULTURE BLOOD CULTURE BLOOD CULTURE CBC WITH AUTO DIFFERENTIAL COMPREHENSIVE METABOLIC PANEL LACTIC ACID WITH REFLEX All other labs were within normal range or not returned as of this dictation. EMERGENCY DEPARTMENT COURSE and DIFFERENTIAL DIAGNOSIS/MDM: Vitals: Vitals: 06/04/24 1524 BP: (!) 131/90 Pulse: 108 Resp: 24 Temp: 36.9 C (98.4 F) TempSrc: Oral SpO2: 100% Weight: 81.6 kg (180 lb) Medications sodium chloride 0.9% (NS) flush 5-40 mL (has no administration in time range) sodium chloride 0.9% (NS) flush 5-40 mL (has no administration in time range) sodium chloride 0.9 % infusion (has no administration in time range) cefepime (Maxipime) 2 g in sodium chloride 0.9 % 50 mL IVPB Mini-Bag Plus (has no administration in time range) And vancomycin IVPB 1250 mg in 250 mL NS (premix) (has no administration in time range) Medical Decision Making Amount and/or Complexity of Data Reviewed Labs: ordered. Radiology: ordered. Risk Prescription drug management. 44-year-old male presenting the emergency department today for wound check. He is afebrile but tachycardic and tachypneic on arrival. Given this there is concern for sepsis in the setting of him having recent necrotizing fasciitis. Given antibiotics here in the emergency department as well as a liter of IV fluids. Not in shock currently so not given 30 cc/kg of IV fluids but still pending lactate. I reviewed the CT results from [facility] which do show multiple abscesses. Spoke with surgery who stated that we needed to repeat images since we do not have access to them. His kidney function is capable of handling this. Signout to the ongoing provider pending labs and imaging and final disposition by general surgery. Diagnostic tests considered but not performed: External records reviewed: Diagnostics interpreted by me: Discussions with other clinicians: Chronic conditions impacting care: Social determinants of health affecting care: ED Medications managed: Medications sodium chloride 0.9% (NS) flush 5-40 mL (has no administration in time range) sodium chloride 0.9% (NS) flush 5-40 mL (has no administration in time range) sodium chloride 0.9 % infusion (has no administration in time range) cefepime (Maxipime) 2 g in sodium chloride 0.9 % 50 mL IVPB Mini-Bag Plus (has no administration in time range) And vancomycin IVPB 1250 mg in 250 mL NS (premix) (has no administration in time range) Prescription drugs considered: I Tamar Hitchcock MD am the eyedotter of record. FINAL IMPRESSION No diagnosis found. DISPOSITION PATIENT REFERRED TO: No follow-up provider specified. DISCHARGE MEDICATIONS: New Prescriptions No medications on file (Comment: Please note this report has been produced using speech recognition software and may contain errors related to that system including errors in grammar, punctuation, and spelling, as well as words and phrases that may be inappropriate. If there are any questions or concerns please feel free to contact the dictating provider for clarification.) Tamar Hitchcock MD (electronically signed) Emergency Medicine Provider Tamar Hitchcock MD 06/04/24 3230 documented in this encounter [facility] 06-04-2024 History and physical note Images from the original note were not included. Internal Medicine: Med Team Initial History and Physical Miranda Ro : 1980(44 y.o.) Date: June 04, 2024 TEAM: C Attending: Dr. Funez Subjective: Chief Complaint: New pelvic abscess in s/o recent jhoan gangrene Miranda Ro is a 44 y.o. male with PMH T2DM last A1C 12.6 2 weeks ago, Chavarria's palsy, hypertension, gout, MRDD, deafness with recent 9-day admission ([facility] 05/21 - 05/30) that presented to [facility] on 06/04/2024 from outside facility ([facility]) after noticing increasing buttock pain. 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 He was discharged to [facility] on 05/30 regimen of cefazolin and metronidazole Wound culture grew b. Fragilis. In the ED, patient is afebrile, tachycardic with rate of 108, respirate of 24, hemodynamically stable saturating 100% on 2 L. Labs reveal lactic of 0.9, CMP showing sodium 135, creatinine 0.52, glucose 134, calcium 7.6, albumin 1.5, alk phos 225, total protein 5.8, hgb 8.2, MCV 82, wbc 4.2. CT A/P w/mmultiple intraultiple rim enhancing fluid collections of the right hip extending to sacrum. Prostatic fluid abscess, small locule's of air within inferior scrotum. Started on IV antibiotics with cefepime and vancomycin. On examination, he is resting comfortably in bed. Limited ROS 2/2 MRDD and reported deafness. However, he is able to answer direct yes/no questions. He is well appearing. States that he has pain in his right buttock. Endorses chills only during the day. No fevers. No chest pain or abdominal pain. Has a slight headache. He is able to show us 2 areas of wound ulceration. Agreeable to admission. Contact information for his brother Georges obtained. Georges updated of patient's current status. Agreeable to admission for IR guided drainage, surgical consult, and IV antibiotics. Clarifies that his brother is a type 2 diabetic who is not compliant with home insulin. Code status confirmed. 44yoM h/o deaf, unctrld DM2, obesity, MRDD presents from [facility] with worsening R buttock pain. Patient recently admitted for septic shock/acute renal failure secondary to foreign years gangrene status post debridement x3, ostomy formation and Donohue catheter placement with history of urethral strictures. Discharged to [facility] last week on antibiotic regimen and receiving wound care however noticed worsening buttock pain at [facility] with repeat imaging concerning for new/worsening abscesses though transferred to [facility] for admission. Other than some chills and buttock pain, patient denies any other issues on evaluation this morning. Patient request that his brothers be updated regarding his care. Patient does admit to depressive thoughts given major health events this past month and is agreeable/interested in speaking with someone about this. Review of Systems Constitutional: Positive for chills. Negative for fatigue and fever. Cardiovascular: Negative for chest pain, palpitations and leg swelling. Gastrointestinal: Negative for diarrhea, nausea and vomiting. Skin: Positive for wound. Neurological: Positive for headaches. Past Medical History: Diagnosis Date Chavarria's palsy Deaf Diabetes mellitus (HCC) Gout Hypertension Obesity Scoliosis Speech impairment Past Surgical History: Procedure Laterality Date APPENDECTOMY LAPAROSCOPIC COLOSTOMY 05/23/2024 Flexible sigmoidoscopy, simple colostomy placement PELVIS DEBRIDEMENT 05/21/2024 jhoan's gangrene PELVIS DEBRIDEMENT 05/26/2024 debridement of perineal wound UPPER GASTROINTESTINAL ENDOSCOPY 06/18/2020 Dr lazar/CAL WOUND DEBRIDEMENT Right 05/23/2024 Second look debridement right buttock & perineum Family History Problem Relation Name Age of Onset Cancer Brother Diabetes Mother Asthma Mother High Blood Pressure Mother Heart disease Mother Diabetes Brother Early natural Sister infant -7 months old Social History Tobacco Use Smoking Status Never Smokeless Tobacco Never Social History Substance and Sexual Activity Alcohol Use No Alcohol/week: 0.0 standard drinks of alcohol Social History Substance and Sexual Activity Drug Use No Allergies Allergen Reactions Penicillins Rash Prior to Admission medications Medication Sig Start Date End Date Taking? Authorizing Provider acetaminophen (Tylenol) 325 MG tablet Take 2 tablets (650 mg) by mouth every 4 hours as needed for moderate pain (4-6) or headaches for up to 10 days. 05/30/24 06/09/24 Gayatri Zhong MD cephalexin (Keflex) 500 MG capsule Take 2 capsules (1,000 mg) by mouth 3 times daily for 4 days. 05/30/24 06/03/24 Gayatri Zhong MD collagenase 250 UNIT/GM ointment Apply topically as needed (Wound care). 05/30/24 08/28/24 Gayatri Zhong MD collagenase 250 UNIT/GM ointment Apply topically daily. 05/30/24 08/28/24 Gayatri Zhong MD dextrose 5 % solution Infuse 100 mL/hr into a venous catheter as needed (Blood sugar less than 70mg/dL). 05/30/24 Gayatri Zhong MD hydrOXYzine pamoate (Vistaril) 25 MG capsule Take 1 capsule (25 mg) by mouth every 8 hours as needed for itching for up to 10 days. 05/30/24 06/09/24 Gayatri Zhong MD Insulin Lispro (Humalog) 100 UNIT/ML solution injection Inject 0-12 Units under the skin 3 times daily (with meals) AND 0-12 Units Nightly. 05/30/24 Gayatri Zhong MD metroNIDAZOLE (Flagyl) 500 MG tablet Take 1 tablet (500 mg) by mouth every 8 hours for 4 days. 05/30/24 06/03/24 Gayatri Zhong MD ondansetron ODT (Zofran-ODT) 4 MG disintegrating tablet Take 1 tablet (4 mg) by mouth every 8 hours as needed for nausea or vomiting for up to 7 days. 05/30/24 06/06/24 Gayatri Zhong MD oxyCODONE (Roxicodone) 5 MG immediate release tablet Take 1 tablet (5 mg) by mouth every 6 hours as needed for moderate pain (4-6) for up to 5 days. 05/30/24 06/04/24 Gayatri Zhong MD sodium hypochlorite (Dakin's, HALF-Strength,) 0.25 % external solution Irrigate with as directed Once for 1 dose. 05/30/24 05/30/24 Gayatri Zhong MD Objective: Vitals: 06/04/24 1524 06/04/24 1841 06/04/24 1913 BP: (!) 131/90 127/88 (!) 141/81 Pulse: 108 98 102 Resp: 24 16 16 Temp: 36.9 C (98.4 F) TempSrc: Oral SpO2: 100% 95% 95% Weight: 180 lb (81.6 kg) Physical Exam Constitutional: Appearance: Normal appearance. HENT: Head: Normocephalic and atraumatic. Eyes: Pupils: Pupils are equal, round, and reactive to light. Cardiovascular: Rate and Rhythm: Normal rate and regular rhythm. Pulmonary: Effort: Pulmonary effort is normal. Abdominal: General: Abdomen is flat. There is no distension. Tenderness: There is no abdominal tenderness. Genitourinary: Comments: Large open purulent wound see image below Musculoskeletal: General: Normal range of motion. Skin: General: Skin is warm and dry. Capillary Refill: Capillary refill takes less than 2 seconds. Neurological: General: No focal deficit present. Mental Status: He is alert. Mental status is at baseline. Psychiatric: Mood and Affect: Mood normal. Patient hard of hearing. Chronically ill-appearing but in no acute distress. On O2 via nasal cannula but breathing comfortably with lungs clear to auscultation throughout. Heart tachycardic but regular rhythm. Abdomen soft and nondistended/nontender with ostomy noted along left side of abdomen. Dental decay and significant white plaques on palate/tongue/buccal mucosa consistent with oral candidiasis. Disclamation of skin noted on hands and notable skin dryness throughout torso and extremities. No calf swelling or tenderness bilaterally. Donohue catheter in place. Extensive wound in perineal/gluteal area with foul smelling purulent drainage and surrounding erythema as well as moisture associated skin damage on buttocks. [facility] Recent Labs BMP: Recent Labs 06/02/24 0400 06/03/24 03206/04/24 1649 NA 130* 136 135* K 4.1 4.5 4.1 CL 99 105 103 CO2 BUN 10 11 9 CREATININE 0.69* 0.61* 0.52* CALCIUM 7.6* 7.5* 7.6* MG 1.7 -- -- PHOS 2.6 -- -- LFTs: Recent Labs 06/02/24 0400 06/04/24 1649 AST 14 12 ALT <6 <6 PROT 5.9* 5.8* ALBUMIN 1.5* 1.5* BILITOT 0.2 0.2 ALKPHOS 367* 225* Glucose: Recent Labs 06/02/24 0400 06/03/24 0325 06/04/24 1649 GLUCOSE 239* 288* 134* Procal: No results for input(s): "PROCAL" in the last 72 hours. CBC: Recent Labs 06/02/24 0400 06/03/24 0325 06/04/24 1649 WBC 5.0 4.4 4.2 HGB 6.9* 8.1* 8.2* HCT 21.7* 25.3* 25.9* PLT 198 186 196 MCV 81.3 81.9 82.7 RDW 15.4* 15.1* 15.1* ABGs: No results for input(s): "PHART", "ICL0RWK", "PO2ART", "BRG6ZXU", "SO2ART", "E4NMPOZY" in the last 72 hours. Lactic Acid: Recent Labs 06/04/24 1649 LACTATE 0.9 INR: No results for input(s): "INR" in the last 72 hours. Cardiac Injury Profile: No results for input(s): "CKTOTAL", "CKMB", "TROPONINI", "TROPHSBASE", "TROPHS2", "BNP" in the last 72 hours. Labs in Last 3 months: Lab Results Component Value Date TSH 1.14 05/21/2024 INR 1.2 (H) 05/23/2024 Assessment and Plan: Active Problems: There are no active Hospital Problems. Simple sepsis 2/2 pelvic+prostate abcessvs perineal wound SIRS+ with respect to HR and RR, Blood cx sent Vanc, 1 time dose of cefepime given. No leukocytosis. LA of 0.9 - Continue Vancomycin, START Zosyn, START Clindamycin - Consult general surgery, Urology, and wound care - CT guided IR drainage ordered for pelvic abscess - Pain control with PRN tylenol and PRN oxycodone - Blood cultures pending - NPO at midnight, LR mIVF @ 75 Uncontrolled type 2 diabetes, complicated by poor wound healing - Last A1c, 12.6 (05/21/24) - START medium dose SSI, will determine basal regimen when glucose trends established Normocytic anemia - Hgb of 8.2, improved from 7's previously - Likely worsened by recent surgical debridement - No signs of active blood loss, continue to monitor Called family - Goals of Care: FULL CODE - DVT Prophylaxis: Lovenox 40 q24hr - CrCl >30 - GI Prophylaxis: Not Indicated - Diet: Carb-Control, NPO at midnight - BMI Classification: Body mass index is 35.15 kg/m . Obesity (BMI >30) - [facility] - Given the signs and symptoms associated with his primary diagnosis in the setting of his comorbid conditions, he is expected to require >48 hrs of hospital care (i.e. inpatient level care). CORE MEASURE DATA SIRS Criteria Sepsis Criteria Severe Sepsis Criteria Septic Shock Criteria Must meet 2: [] Temperature > 100.4 F (38 C) or < 96.8 F (36 C) [x] HR > 90 [x] RR > 20 [] WBC > 12 or < 4 or 10% bands Must be confirmed or suspected to move forward with diagnosis of sepsis. Must select at least one: [x] Bacterial Infection Confirmed or Suspected. [] Viral Infection Confirmed or Suspected. [] No infection present. Patient does not meet criteria for Sepsis. Must meet 1: [] Lactate > 2 or [] Signs of Organ Dysfunction: - SBP < 90 or MAP < 65 - Altered mental status - Creatinine > 2 or increased from baseline - Urine Output < 0.5 ml/kg/hr - Bilirubin > 2 - INR > 1.5 - Platelets < 100,000 - Acute Respiratory Failure as evidenced by new need for NIPPV or mechanical ventilation [x] No criteria met for Severe Sepsis. Must meet 1: [] Lactate = or > 4 or [] SBP < 90 or MAP < 65 for at least two readings in the first hour after fluid bolus administration [] No criteria met for Septic Shock. No data found. Recent Labs 06/02/24 0400 06/03/24 0325 06/04/24 1649 WBC 5.0 4.4 4.2 LACTATE -- -- 0.9 CREATININE 0.69* 0.61* 0.52* BILITOT 0.2 -- 0.2 PLT 198 186 196 Sepsis Identified at 1524 hours. Fluid Resuscitation Rational: Patient does not meet criteria for Severe Sepsis or Septic Shock. 30mL/kg bolus not indicated Infection Source: Skin or Soft Tissue Reassessment Exam: Not applicable. Patient does not have Septic Shock. Omar Alexandra DO ING ADDENDUM 7:56 AM 06/05/24 - On exam this Am, he is resting comfortably, endorses some emotional distress, will consult psychiatry and spiritual care - Endorses unchanged pain in his pelvis - No leukocytosis, afebrile - Urology evaluated patient, maintain donohue catheter, agree with IR attempt at drainage - Maintain NPO, ok for diet following IR -Nystatin swish and swallow for thrush Cosigned by Dahlia Funez MD at 06/05/2024 3:45 PM EDT Associated attestation - Dahlia Funez MD - 06/05/2024 3:45 PM EDT I have discussed the care of Miranda Ro with the medical student and/or resident. I have personally taken a history, examined the patient, and performed the associated medical decision making activities. I have reviewed & verified the attested documentation. Unless otherwise noted below, this documentation reflects the history, physical exam, and medical decision making that I performed myself. Please see note for my personal highlights or additions in Green. Patient seen and examined by myself at 8:30am on 06/05/24 Leon Changes to Care Plan: -Admitted for extensive abscesses/worsening infection on CT-- surgery/urology consulted, to IR for drainage today and cultures sent, on broad spectrum abx -Spoke with abx stewardship- given complexity of case, will consult ID to guide abx therapy moving forward -Patient depressed and asking to speak with someone-- consult to pastoral care and psychology to provide support -Wound care following Level 3 Checklist 1. Complexity of problems addressed: Sepsis with multiloculated abscesses 3. Drug therapy requiring intensive monitoring for toxicity: Vancomycin - monitoring serum creatinine [facility] Work Phone: 06-04-2024 Note [facility] 06-04-2024 History and physical note Images from the original note were not included. Internal Medicine: Med Team Initial History and Physical Miranda Ro : 1980(44 y.o.) Date: June 04, 2024 TEAM: John Paul Attending: Dr. Funez Subjective: Chief Complaint: New pelvic abscess in s/o recent jhoan gangrene Miranda Ro is a 44 y.o. male with PMH T2DM last A1C 12.6 2 weeks ago, Chavarria's palsy, hypertension, gout, MRDD, deafness with recent 9-day admission ([facility] 05/21 - 05/30) that presented to [facility] on 06/04/2024 from outside facility ([facility]) after noticing increasing buttock pain. 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 He was discharged to [facility] on 05/30 regimen of cefazolin and metronidazole Wound culture grew b. Fragilis. In the ED, patient is afebrile, tachycardic with rate of 108, respirate of 24, hemodynamically stable saturating 100% on 2 L. Labs reveal lactic of 0.9, CMP showing sodium 135, creatinine 0.52, glucose 134, calcium 7.6, albumin 1.5, alk phos 225, total protein 5.8, hgb 8.2, MCV 82, wbc 4.2. CT A/P w/mmultiple intraultiple rim enhancing fluid collections of the right hip extending to sacrum. Prostatic fluid abscess, small locule's of air within inferior scrotum. Started on IV antibiotics with cefepime and vancomycin. On examination, he is resting comfortably in bed. Limited ROS 2/2 MRDD and reported deafness. However, he is able to answer direct yes/no questions. He is well appearing. States that he has pain in his right buttock. Endorses chills only during the day. No fevers. No chest pain or abdominal pain. Has a slight headache. He is able to show us 2 areas of wound ulceration. Agreeable to admission. Contact information for his brother Georges obtained. Georges updated of patient's current status. Agreeable to admission for IR guided drainage, surgical consult, and IV antibiotics. Clarifies that his brother is a type 2 diabetic who is not compliant with home insulin. Code status confirmed. 44yoM h/o deaf, unctrld DM2, obesity, MRDD presents from [facility] with worsening R buttock pain. Patient recently admitted for septic shock/acute renal failure secondary to foreign years gangrene status post debridement x3, ostomy formation and Donohue catheter placement with history of urethral strictures. Discharged to [facility] last week on antibiotic regimen and receiving wound care however noticed worsening buttock pain at [facility] with repeat imaging concerning for new/worsening abscesses though transferred to [facility] for admission. Other than some chills and buttock pain, patient denies any other issues on evaluation this morning. Patient request that his brothers be updated regarding his care. Patient does admit to depressive thoughts given major health events this past month and is agreeable/interested in speaking with someone about this. Review of Systems Constitutional: Positive for chills. Negative for fatigue and fever. Cardiovascular: Negative for chest pain, palpitations and leg swelling. Gastrointestinal: Negative for diarrhea, nausea and vomiting. Skin: Positive for wound. Neurological: Positive for headaches. Past Medical History: Diagnosis Date Chavarria's palsy Deaf Diabetes mellitus (HCC) Gout Hypertension Obesity Scoliosis Speech impairment Past Surgical History: Procedure Laterality Date APPENDECTOMY LAPAROSCOPIC COLOSTOMY 05/23/2024 Flexible sigmoidoscopy, simple colostomy placement PELVIS DEBRIDEMENT 05/21/2024 jhoan's gangrene PELVIS DEBRIDEMENT 05/26/2024 debridement of perineal wound UPPER GASTROINTESTINAL ENDOSCOPY 06/18/2020 Dr lazar/CAL WOUND DEBRIDEMENT Right 05/23/2024 Second look debridement right buttock & perineum Family History Problem Relation Name Age of Onset Cancer Brother Diabetes Mother Asthma Mother High Blood Pressure Mother Heart disease Mother Diabetes Brother Early natural Sister -7 months old Social History Tobacco Use Smoking Status Never Smokeless Tobacco Never Social History Substance and Sexual Activity Alcohol Use No Alcohol/week: 0.0 standard drinks of alcohol Social History Substance and Sexual Activity Drug Use No Allergies Allergen Reactions Penicillins Rash Prior to Admission medications Medication Sig Start Date End Date Taking? Authorizing Provider acetaminophen (Tylenol) 325 MG tablet Take 2 tablets (650 mg) by mouth every 4 hours as needed for moderate pain (4-6) or headaches for up to 10 days. 05/30/24 06/09/24 Gayatri Zhong MD cephalexin (Keflex) 500 MG capsule Take 2 capsules (1,000 mg) by mouth 3 times daily for 4 days. 05/30/24 06/03/24 Gayatri Zhong MD collagenase 250 UNIT/GM ointment Apply topically as needed (Wound care). 05/30/24 08/28/24 Gayatri Zhong MD collagenase 250 UNIT/GM ointment Apply topically daily. 05/30/24 08/28/24 Gayatri Zhong MD dextrose 5 % solution Infuse 100 mL/hr into a venous catheter as needed (Blood sugar less than 70mg/dL). 05/30/24 Gayatri Zhong MD hydrOXYzine pamoate (Vistaril) 25 MG capsule Take 1 capsule (25 mg) by mouth every 8 hours as needed for itching for up to 10 days. 05/30/24 06/09/24 Gayatri Zhong MD Insulin Lispro (Humalog) 100 UNIT/ML solution injection Inject 0-12 Units under the skin 3 times daily (with meals) AND 0-12 Units Nightly. 05/30/24 Gayatri Zhong MD metroNIDAZOLE (Flagyl) 500 MG tablet Take 1 tablet (500 mg) by mouth every 8 hours for 4 days. 05/30/24 06/03/24 Gayatri Zhong MD ondansetron ODT (Zofran-ODT) 4 MG disintegrating tablet Take 1 tablet (4 mg) by mouth every 8 hours as needed for nausea or vomiting for up to 7 days. 05/30/24 06/06/24 Gayatri Zhong MD oxyCODONE (Roxicodone) 5 MG immediate release tablet Take 1 tablet (5 mg) by mouth every 6 hours as needed for moderate pain (4-6) for up to 5 days. 05/30/24 06/04/24 Gayatri Zhong MD sodium hypochlorite (Dakin's, HALF-Strength,) 0.25 % external solution Irrigate with as directed Once for 1 dose. 05/30/24 05/30/24 Gayatri Zhong MD Objective: Vitals: 06/04/24 1524 06/04/24 1841 06/04/24 1913 BP: (!) 131/90 127/88 (!) 141/81 Pulse: 108 98 102 Resp: 24 16 16 Temp: 36.9 C (98.4 F) TempSrc: Oral SpO2: 100% 95% 95% Weight: 180 lb (81.6 kg) Physical Exam Constitutional: Appearance: Normal appearance. HENT: Head: Normocephalic and atraumatic. Eyes: Pupils: Pupils are equal, round, and reactive to light. Cardiovascular: Rate and Rhythm: Normal rate and regular rhythm. Pulmonary: Effort: Pulmonary effort is normal. Abdominal: General: Abdomen is flat. There is no distension. Tenderness: There is no abdominal tenderness. Genitourinary: Comments: Large open purulent wound see image below Musculoskeletal: General: Normal range of motion. Skin: General: Skin is warm and dry. Capillary Refill: Capillary refill takes less than 2 seconds. Neurological: General: No focal deficit present. Mental Status: He is alert. Mental status is at baseline. Psychiatric: Mood and Affect: Mood normal. Patient hard of hearing. Chronically ill-appearing but in no acute distress. On O2 via nasal cannula but breathing comfortably with lungs clear to auscultation throughout. Heart tachycardic but regular rhythm. Abdomen soft and nondistended/nontender with ostomy noted along left side of abdomen. Dental decay and significant white plaques on palate/tongue/buccal mucosa consistent with oral candidiasis. Disclamation of skin noted on hands and notable skin dryness throughout torso and extremities. No calf swelling or tenderness bilaterally. Donohue catheter in place. Extensive wound in perineal/gluteal area with foul smelling purulent drainage and surrounding erythema as well as moisture associated skin damage on buttocks. [facility] Recent Labs BMP: Recent Labs 06/02/24 0400 06/03/2432406/04/24 1649 NA 130* 136 135* K 4.1 4.5 4.1 CL 99 105 103 CO2 28 25 BUN 10 11 9 CREATININE 0.69* 0.61* 0.52* CALCIUM 7.6* 7.5* 7.6* MG 1.7 -- -- PHOS 2.6 -- -- LFTs: Recent Labs 06/02/24 0400 06/04/24 1649 AST 14 12 ALT <6 <6 PROT 5.9* 5.8* ALBUMIN 1.5* 1.5* BILITOT 0.2 0.2 ALKPHOS 367* 225* Glucose: Recent Labs 06/02/24 0400 06/03/24 0325 06/04/24 1649 GLUCOSE 239* 288* 134* Procal: No results for input(s): "PROCAL" in the last 72 hours. CBC: Recent Labs 06/02/24 0400 06/03/24 0325 06/04/24 1649 WBC 5.0 4.4 4.2 HGB 6.9* 8.1* 8.2* HCT 21.7* 25.3* 25.9* PLT 198 186 196 MCV 81.3 81.9 82.7 RDW 15.4* 15.1* 15.1* ABGs: No results for input(s): "PHART", "KEC9TCU", "PO2ART", "NBD9AEF", "SO2ART", "D6DXZHBM" in the last 72 hours. Lactic Acid: Recent Labs 06/04/24 1649 LACTATE 0.9 INR: No results for input(s): "INR" in the last 72 hours. Cardiac Injury Profile: No results for input(s): "CKTOTAL", "CKMB", "TROPONINI", "TROPHSBASE", "TROPHS2", "BNP" in the last 72 hours. Labs in Last 3 months: Lab Results Component Value Date TSH 1.14 05/21/2024 INR 1.2 (H) 05/23/2024 Assessment and Plan: Active Problems: There are no active Hospital Problems. Simple sepsis 2/2 pelvic+prostate abcessvs perineal wound SIRS+ with respect to HR and RR, Blood cx sent Vanc, 1 time dose of cefepime given. No leukocytosis. LA of 0.9 - Continue Vancomycin, START Zosyn, START Clindamycin - Consult general surgery, Urology, and wound care - CT guided IR drainage ordered for pelvic abscess - Pain control with PRN tylenol and PRN oxycodone - Blood cultures pending - NPO at midnight, LR mIVF @ 75 Uncontrolled type 2 diabetes, complicated by poor wound healing - Last A1c, 12.6 (05/21/24) - START medium dose SSI, will determine basal regimen when glucose trends established Normocytic anemia - Hgb of 8.2, improved from 7's previously - Likely worsened by recent surgical debridement - No signs of active blood loss, continue to monitor Called family - Goals of Care: FULL CODE - DVT Prophylaxis: Lovenox 40 q24hr - CrCl >30 - GI Prophylaxis: Not Indicated - Diet: Carb-Control, NPO at midnight - BMI Classification: Body mass index is 35.15 kg/m . Obesity (BMI >30) - Disposition: Admit to [facility]. - Given the signs and symptoms associated with his primary diagnosis in the setting of his comorbid conditions, he is expected to require >48 hrs of hospital care (i.e. inpatient level care). SEP-1 CORE MEASURE DATA SIRS Criteria Sepsis Criteria Severe Sepsis Criteria Septic Shock Criteria Must meet 2: [] Temperature > 100.4 F (38 C) or < 96.8 F (36 C) [x] HR > 90 [x] RR > 20 [] WBC > 12 or < 4 or 10% bands Must be confirmed or suspected to move forward with diagnosis of sepsis. Must select at least one: [x] Bacterial Infection Confirmed or Suspected. [] Viral Infection Confirmed or Suspected. [] No infection present. Patient does not meet criteria for Sepsis. Must meet 1: [] Lactate > 2 or [] Signs of Organ Dysfunction: - SBP < 90 or MAP < 65 - Altered mental status - Creatinine > 2 or increased from baseline - Urine Output < 0.5 ml/kg/hr - Bilirubin > 2 - INR > 1.5 - Platelets < 100,000 - Acute Respiratory Failure as evidenced by new need for NIPPV or mechanical ventilation [x] No criteria met for Severe Sepsis. Must meet 1: [] Lactate = or > 4 or [] SBP < 90 or MAP < 65 for at least two readings in the first hour after fluid bolus administration [] No criteria met for Septic Shock. No data found. Recent Labs 06/02/24 0400 06/03/24 0325 06/04/24 1649 WBC 5.0 4.4 4.2 LACTATE -- -- 0.9 CREATININE 0.69* 0.61* 0.52* BILITOT 0.2 -- 0.2 PLT 198 186 196 Sepsis Identified at 1524 hours. Fluid Resuscitation Rational: Patient does not meet criteria for Severe Sepsis or Septic Shock. 30mL/kg bolus not indicated Infection Source: Skin or Soft Tissue Reassessment Exam: Not applicable. Patient does not have Septic Shock. Omar Alexandra DO ING ADDENDUM 7:56 AM 06/05/24 - On exam this Am, he is resting comfortably, endorses some emotional distress, will consult psychiatry and spiritual care - Endorses unchanged pain in his pelvis - No leukocytosis, afebrile - Urology evaluated patient, maintain donohue catheter, agree with IR attempt at drainage - Maintain NPO, ok for diet following IR -Nystatin swish and swallow for thrush Cosigned by Dahlia Funez MD at 06/05/2024 3:45 PM EDT Associated attestation - Dahlia Funez MD - 06/05/2024 3:45 PM EDT I have discussed the care of Miranda Ro with the medical student and/or resident. I have personally taken a history, examined the patient, and performed the associated medical decision making activities. I have reviewed & verified the attested documentation. Unless otherwise noted below, this documentation reflects the history, physical exam, and medical decision making that I performed myself. Please see note for my personal highlights or additions in Green. Patient seen and examined by myself at 8:30am on 06/05/24 Leon Changes to Care Plan: -Admitted for extensive abscesses/worsening infection on CT-- surgery/urology consulted, to IR for drainage today and cultures sent, on broad spectrum abx -Spoke with abx stewardship- given complexity of case, will consult ID to guide abx therapy moving forward -Patient depressed and asking to speak with someone-- consult to pastoral care and psychology to provide support -Wound care following Level 3 Checklist 1. Complexity of problems addressed: Sepsis with multiloculated abscesses 3. Drug therapy requiring intensive monitoring for toxicity: Vancomycin - monitoring serum creatinine documented in this encounter [facility] 06-04-2024 Physician Emergency department Note EMERGENCY DEPARTMENT ENCOUNTER Pt Name: Miranda Ro Birthdate 1980 Date of evaluation: 06/04/2024 ED Provider: Tamar Hitchcock MD CHIEF COMPLAINT Chief Complaint Patient presents with Wound Infection Patient to ED #30 via squad for a wound infection to his buttocks. MRDD from [facility] for evaluation. HISTORY OF PRESENT ILLNESS (Location/Symptom, Timing/Onset, Context/Setting, Quality, Duration, Modifying Factors, Severity) Note limiting factors. HPI Miranda Ro is a 44 y.o. male who presents to the emergency department for wound check. 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 Currently living at [facility]. Had a CT scan done today because he was still having some pain in his buttock which showed multiple abscesses. Brought into the emergency department for evaluation. Patient states that he is just having pain to his gluteal area but has no other complaints. Nursing Notes were reviewed. REVIEW OF SYSTEMS Review of Systems Pertinent positives and negatives per HPI PAST MEDICAL HISTORY Past Medical History: Diagnosis Date Chavarria's palsy Deaf Diabetes mellitus (HCC) Gout Hypertension Obesity Scoliosis Speech impairment SURGICAL HISTORY Past Surgical History: Procedure Laterality Date APPENDECTOMY LAPAROSCOPIC COLOSTOMY 05/23/2024 Flexible sigmoidoscopy, simple colostomy placement PELVIS DEBRIDEMENT 05/21/2024 jhoan's gangrene PELVIS DEBRIDEMENT 05/26/2024 debridement of perineal wound UPPER GASTROINTESTINAL ENDOSCOPY 06/18/2020 Dr lazar/Gayathri WOUND DEBRIDEMENT Right 05/23/2024 Second look debridement right buttock & perineum CURRENT MEDICATIONS Previous Medications ACETAMINOPHEN (TYLENOL) 325 MG TABLET Take 2 tablets (650 mg) by mouth every 4 hours as needed for moderate pain (4-6) or headaches for up to 10 days. COLLAGENASE 250 UNIT/GM OINTMENT Apply topically as needed (Wound care). COLLAGENASE 250 UNIT/GM OINTMENT Apply topically daily. DEXTROSE 5 % SOLUTION Infuse 100 mL/hr into a venous catheter as needed (Blood sugar less than 70mg/dL). HYDROXYZINE PAMOATE (VISTARIL) 25 MG CAPSULE Take 1 capsule (25 mg) by mouth every 8 hours as needed for itching for up to 10 days. INSULIN LISPRO (HUMALOG) 100 UNIT/ML SOLUTION INJECTION Inject 0-12 Units under the skin 3 times daily (with meals) AND 0-12 Units Nightly. ONDANSETRON ODT (ZOFRAN-ODT) 4 MG DISINTEGRATING TABLET Take 1 tablet (4 mg) by mouth every 8 hours as needed for nausea or vomiting for up to 7 days. OXYCODONE (ROXICODONE) 5 MG IMMEDIATE RELEASE TABLET Take 1 tablet (5 mg) by mouth every 6 hours as needed for moderate pain (4-6) for up to 5 days. ALLERGIES Penicillins FAMILY HISTORY Family History Problem Relation Name Age of Onset Cancer Brother Diabetes Mother Asthma Mother High Blood Pressure Mother Heart disease Mother Diabetes Brother Early natural Sister infant -7 months old SOCIAL HISTORY Social History Socioeconomic History Marital status: Single Tobacco Use Smoking status: Never Smokeless tobacco: Never Substance and Sexual Activity Alcohol use: No Alcohol/week: 0.0 standard drinks of alcohol Drug use: No Social Drivers of Health Financial Resource Strain: Low Risk (06/02/2024) Received from [facility] Overall Financial Resource Strain (CARDIA) Difficulty of Paying Living Expenses: Not hard at all Food Insecurity: No Food Insecurity (06/02/2024) Received from [facility] Hunger Vital Sign Worried About Running Out of Food in the Last Year: Never true Ran Out of Food in the Last Year: Never true Transportation Needs: Unmet Transportation Needs (05/30/2024) Received from [facility] SDMA Transportation Source Has lack of transportation kept you from medical appointments or from getting medications?: Yes Has lack of transportation kept you from meetings, work, or from getting things needed for daily living?: Yes Stress: No Stress Concern Present (05/30/2024) Received from [facility] [place] [facility] - Occupational Stress Questionnaire Feeling of Stress : Not at all Social Connections: Socially Isolated (06/02/2024) Received from [facility] Social Connection and Isolation Panel [NHANES] Frequency of Communication with Friends and Family: More than three times a week Frequency of Social Gatherings with Friends and Family: More than three times a week Attends Cheondoism Services: Never Active Member of Clubs or Organizations: No Attends Club or Organization Meetings: Never Marital Status: Never Intimate Partner Violence: Unknown (05/30/2024) Received from [facility] Domestic Abuse Assessment Do you feel safe in your relationships at home?: Unable to assess Physical Abuse: Denies Verbal Abuse: Denies Housing Stability: Low Risk (06/02/2024) Received from [facility] Housing Stability Vital Sign Unable to Pay for Housing in the Last Year: No Number of Times Moved in the Last Year: 0 Homeless in the Last Year: No SCREENINGS PHYSICAL EXAM ED Triage Vitals [06/04/24 1524] Temp Heart Rate Resp BP 36.9 C (98.4 F) 108 24 (!) 131/90 SpO2 Temp Source Heart Rate Source Patient Position 100 % Oral Monitor -- BP Location FiO2 (%) -- -- Physical Exam Well-appearing male in no acute distress. Vital signs reviewed and notable for tachycardia and tachypnea. Lungs clear to auscultation bilaterally Abdomen soft and nontender. Patient has a large surgical wound to the right gluteal area with packing inside of it. There is some surrounding erythema but no significant warmth. There is no crepitus or induration. He also has a wound just below his penis that is gaping with some surrounding erythema as well. There is no significant foul odor. DIAGNOSTIC RESULTS RADIOLOGY (Per Emergency Physician): Interpretation per the Radiologist below, if available at the time of this note: No orders to display LABS: Labs Reviewed BLOOD CULTURE BLOOD CULTURE BLOOD CULTURE BLOOD CULTURE CBC WITH AUTO DIFFERENTIAL COMPREHENSIVE METABOLIC PANEL LACTIC ACID WITH REFLEX All other labs were within normal range or not returned as of this dictation. EMERGENCY DEPARTMENT COURSE and DIFFERENTIAL DIAGNOSIS/MDM: Vitals: Vitals: 06/04/24 1524 BP: (!) 131/90 Pulse: 108 Resp: 24 Temp: 36.9 C (98.4 F) TempSrc: Oral SpO2: 100% Weight: 81.6 kg (180 lb) Medications sodium chloride 0.9% (NS) flush 5-40 mL (has no administration in time range) sodium chloride 0.9% (NS) flush 5-40 mL (has no administration in time range) sodium chloride 0.9 % infusion (has no administration in time range) cefepime (Maxipime) 2 g in sodium chloride 0.9 % 50 mL IVPB Mini-Bag Plus (has no administration in time range) And vancomycin IVPB 1250 mg in 250 mL NS (premix) (has no administration in time range) Medical Decision Making Amount and/or Complexity of Data Reviewed Labs: ordered. Radiology: ordered. Risk Prescription drug management. 44-year-old male presenting the emergency department today for wound check. He is afebrile but tachycardic and tachypneic on arrival. Given this there is concern for sepsis in the setting of him having recent necrotizing fasciitis. Given antibiotics here in the emergency department as well as a liter of IV fluids. Not in shock currently so not given 30 cc/kg of IV fluids but still pending lactate. I reviewed the CT results from [facility] which do show multiple abscesses. Spoke with surgery who stated that we needed to repeat images since we do not have access to them. His kidney function is capable of handling this. Signout to the ongoing provider pending labs and imaging and final disposition by general surgery. Diagnostic tests considered but not performed: External records reviewed: Diagnostics interpreted by me: Discussions with other clinicians: Chronic conditions impacting care: Social determinants of health affecting care: ED Medications managed: Medications sodium chloride 0.9% (NS) flush 5-40 mL (has no administration in time range) sodium chloride 0.9% (NS) flush 5-40 mL (has no administration in time range) sodium chloride 0.9 % infusion (has no administration in time range) cefepime (Maxipime) 2 g in sodium chloride 0.9 % 50 mL IVPB Mini-Bag Plus (has no administration in time range) And vancomycin IVPB 1250 mg in 250 mL NS (premix) (has no administration in time range) Prescription drugs considered: I Tamar Hitchcock MD am the eyedotter of record. FINAL IMPRESSION No diagnosis found. DISPOSITION PATIENT REFERRED TO: No follow-up provider specified. DISCHARGE MEDICATIONS: New Prescriptions No medications on file (Comment: Please note this report has been produced using speech recognition software and may contain errors related to that system including errors in grammar, punctuation, and spelling, as well as words and phrases that may be inappropriate. If there are any questions or concerns please feel free to contact the dictating provider for clarification.) Tamar Hitchcock MD (electronically signed) Emergency Medicine Provider Tamar Hitchcock MD 06/04/24 [id number] [facility] Work Phone: 05-30-2024 Note [facility] 05-30-2024 History of Presen t illness Narrative Images from the original note were not included. Hospitalist Progress Note 05/30/[id number]: Please page me ([phone]) for patient care issues. [phone]: Please page [facility] Hospitalist for any issues. Subjective: Admit Date: 05/21/2024 PCP: No primary care provider on file. Room#: B2258/B2258 Galo Ro is a 44 y.o. 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 He is aware that he will have the ostomy for 6 to 8 months probably. Discussed with TCC and discussed with RN and discontinue PICC line . Denies chest pain, sob, abdominal pain, nausea, vomiting, diarrhea, constipation, fevers, or chills. Adult diet Regular; 4 carb choices (60 gm/meal) 24HR INTAKE/OUTPUT: Intake/Output Summary (Last 24 hours) at 05/30/2024 1220 Last data filed at 05/30/2024 1216 Gross per 24 hour Intake -- Output 5115 ml Net -5115 ml LABS: CBC: Recent Labs 05/28/248 05/29/24 0114 05/30/24 0107 WBC 5.3 5.0 5.7 RBC 2.87* 2.94* 2.88* HGB 7.4* 7.6* 7.4* HCT 23.1* 23.4* 23.1* MCV 80.5 79.6 80.2 RDW 14.1 14.3 14.8 PLT 179 174 174 BMP: Recent Labs 05/28/248 05/29/24 0047 05/30/24 0107 NA 132* 132* 133* K 3.8 4.1 4.1 CL 102 100 100 CO2 26 26 28 BUN 23* 20 18 CREATININE 0.60* 0.60* 0.57* GLUCOSE 192* 236* 130* CALCIUM 6.9* 7.1* 7.2* ANIONGAP 4 6 5 LIVER PROFILE: Recent Labs 05/28/248 05/29/24 0047 05/30/24 0107 AST 19 15 18 ALT <6 <6 <6 BILITOT 0.2 0.3 0.3 ALKPHOS 412* 406* 379* PROT 5.1* 5.2* 5.4* PT/INR: No results for input(s): "PROTIME", "INR" in the last 72 hours. CARDIAC ENZYMES: No results for input(s): "TROPONINI" in the last 72 hours. Procalcitonin: No results found for: "PROCAL" @RISRSLTSPECIALTY@ Objective: Vitals: BP 133/82 Pulse 111 Temp (!) 35.9 C (96.6 F) (Temporal) Resp 17 Ht 5' (1.524 m) Wt 200 lb (90.7 kg) SpO2 96% BMI 39.06 kg/m Pulse Ox: SpO2 Av.3 % Min: 93 % Max: 99 % Supplemental O2: O2 Flow Rate (L/min): 3 L/min 05/30/2024 General appearance: Appears to be in no distress, very hard of hearing, appears stated age, AAOX3 Oral: Tongue is semi-moist, Cardiovascular: S1/S2 heard, RRR Respiratory: Diminished breath sounds bilaterally and no wheezing or rhonchi abdomen: Obese, positive ostomy , soft, non-tender, non-distended bowel sounds positive Musculoskeletal: No obvious deformities seen ankle edema and no calf tenderness Skin: Neurological: Awake alert oriented x 3 no acute motor or sensory deficits Medications: collagenase, , Topical, Daily insulin lispro, 0-12 Units, SubCUTAneous, TID WC And insulin lispro, 0-12 Units, SubCUTAneous, Nightly metroNIDAZOLE, 500 mg, Oral, q8h sodium chloride 0.9%, 10 mL, IntraVENous, 2 times per day sodium chloride 0.9%, 10 mL, IntraCATHeter, q12h sodium hypochlorite, , Irrigation, Daily PRN medications: acetaminophen, collagenase, dextrose, dextrose, glucagon (rDNA), glucose, hydrOXYzine pamoate, morphine sulfate OR morphine sulfate, naloxone, ondansetron ODT OR ondansetron, oxyCODONE OR oxyCODONE, potassium chloride CR OR potassium chloride CR OR potassium chloride CR OR potassium chloride OR potassium chloride OR potassium chloride OR potassium chloride, sodium chloride, sodium chloride 0.9%, sodium chloride 0.9%, sodium hypochlorite Assessment 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, 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/26, discontinue IV antibiotics and switch to metronidazole and Keflex 1 g 3 times daily for 5 days DKA with uncontrolled type 1 diabetes-out of DKA now, monitor blood sugars, insulin sliding scale Pseudohyponatremia Acute on chronic anemia with hemoglobin of 7.4, transfuse as needed Hypokalemia-resolved Fluid overload-appears to be stable now Acute on chronic anemia Chronic problems Urinary retention-has a Donohue catheter, new after discharge and follow-up with urology service History of MRDD Type 2 diabetes mellitus with hyperglycemia Plan Reviewed CBC and BMP and ordered CBC and BMP in a.m. No further debridements planned as per general surgery Follow-up on ostomy care Discontinued PICC line and IV antibiotics and switched to cephalexin 1 g 3 times daily and also metronidazole 500 mg 3 times daily till 06/03 Looks medically safe and stable [facility] -[facility] labs, replace lytes prn -increase activity Diet Adult diet Regular; 4 carb choices (60 gm/meal) DVT Prophylaxis [x] Lovenox, [] Heparin, [x] SCDs, [] Ambulation [] Already on Anticoagulation GI Prophylaxis [] PPI, [] H2 Bienvenido, [] Carafate, [] Diet/Tube Feeds Code Status Full Code Disposition Patient requires continued admission due to Jhoan's gangrene MDM [] Low, [] Moderate,[x] High Patient's risk as above Total time spent (which include face to face and non face to face encounters) : 40 minutes Toxic drug monitoring/narrow therapeutic index drug monitoring : # Drug name : Insulin # Route administered : Subcutaneous # Method of monitoring : Blood sugar monitoring and hypoglycemia protocol Extended Emergency Contact Information Primary Emergency Contact: Georges Ro Mobile Relation: Sibling Secondary Emergency Contact: Pernell Ro Mobile Relation: Brother Advance Directive: Full Code Discharge planning: Discharge plan to LTAC Gayatri Zhong MD Division of Hospitalist Medicine Inpatient Medical Services/[facility] Ostomy bar removed successfully. Stoma appears healthy. Ostomy appliance changed by nursing at this time. Steri-strips removed with well-appearing operative sites. Okay for discharge this afternoon, continue daily packing changes. DWAIN Aldrich Images from the original note were not included. PHYSICAL THERAPY [facility] Treatment Note Name/MRN: Miranda Ro ([id number]) Date of : 1980 Age: 44 y.o. Room/Bed: B2-258/B2-258 A Visit #: 1 out of 5 visits Discharge Recommendation: Jail Facility Other: TBD at next level of care Prior Level of Function Prior Level of ADL Function: Independent Prior Level of Mobility: Independent; Device: None Prior Level of Transfers: Independent Assessment Pt demonstrates slight improvement in functional mobility, but is limited by pain and weakness. Pt completes bed mobility with Mod-total assist. Pt completes sitting on EOB with Max A for sitting balance with progressing to Min A. Pt will benefit from skilled PT services to improve in overall safety and independence. Recommend SNF at discharge. Subjective Pt supine in bed, agreeable to session. Per RN, pt okay for therapy. Pain: Pt denies any current pain. Medical Precautions: No active isolations Proper PPE donned/doffed in accordance with facility standards. Fall Risk: Jones Fall Risk Score: 35 (Low Risk) Jones Fall Risk Score: 35 (Medium Risk) Precautions/Restrictions: N/A Overall Cognitive Status: Exceptions - Following commands: follows one step commands with increased time and follows one step commands with repetition - Safety judgement: decreased awareness of need for assistance and decreased awareness of need for safety - Problem solving: assistance required to generate solutions, assistance required to implement solutions, assistance required to identify errors made, assistance required to correct errors made, and decreased awareness of errors - Initiation: requires cues for all - Sequencing: requires cues for all Overall Orientation Status: Oriented to Person Family/Caregiver Present: none Objective Bed Mobility Supine to sit: Dependent Sit to supine: Max Assist Rolling to right: Mod Assist Rolling to left: Mod Assist Pt completes supine to sit with dependent assist. Pt able to move B LE over to EOB, but requires total assist to complete moving B LE over to EOB and for lifting trunk upright. Cues for using bedrails with difficulty with sequencing. Pt appears to be resisting therapist during movement. While sitting on EOB, pt initially Max A for sitting balance with pt demonstrating increased L and retro lean. Pt was provided cues for upright posture with pt progressing to Min A. Pt tolerated sitting EOB ~6 min. While sitting EOB, pt completes LAQ x 5 B LE. Pt completes sit to supine with Max A for assisting with lifting B LE and guiding trunk. Pt completes rolling in each direction with Mod A with hand over hand assist to reach for bedrail with contralateral leg flexion. Plan Continue acute PT per plan of care. Safety/Education Safety Safety Devices in place: All fall risk precautions in place, call light within reach, left in bed, patient at risk for falls, nurse notified, and no alarms engaged upon entry Restraints: No Education Education Given To: patient Education Provided: PT Role, PT Goals, Plan of Care, Precautions, Transfer Training, Fall Prevention Education, Discharge Recommendations, and Benefits of Increasing Activity Education Method: Verbal and Demonstration Barriers to Learning: Cognition Education Outcome: Verbalized Understanding and Continued Education Needed Outcome Measures AM-PAC AM-PAC Inpatient Mobility Raw Score (No Stairs) : 7 JH-HLM JH-HLM Score: Sat at edge of bed Goals Patient Stated Goal: none stated. Encounter Problems Encounter Problems (Active) Balance Exercise Patient will complete lower extremity exercises for 1-2 sets / 10 reps in order to improve strength and activity tolerance for mobility. Start: 05/22/24 Expected End: 06/03/24 Mobility Patient will ambulate 10 feet with mod A and least restrictive device in order to improve safety and independence with mobility. Start: 05/22/24 Expected End: 06/03/24 PT updated 05/27 Transfers Patient will perform bed mobility with max x1 in order to improve independence and prepare for out of bed mobility. Start: 05/22/24 Expected End: 06/03/24 PT updated 05/27 Patient will complete functional transfers with least restrictive device with max x1 in order to prepare for ambulation. Start: 05/22/24 Expected End: 06/03/24 PT updated 05/27 Therapy Time Individual Co-treatment Time In 0800 Time Out 0817 Minutes 17 Timed Code Treatment Minutes: 15 Minutes (1 theract) Nola Jackson PT Surgery Post Op Progress Note PATIENT NAME: Miranda Ro TODAY'S DATE: 05/30/2024 SUBJECTIVE: Follow up s/p debridement. Patient seen this morning resting in bed watching content on phone. He notes feeling well with minimal soreness. Patient denies any abdominal pain, nausea, or vomiting. He has enjoyed pancakes for breakfast. Patient notes that he does not want his packing changed right now. No overnight events noted. Pain controlled Yes Other Complaints No Flatus/BM/or Ostomy function Yes OBJECTIVE: VITALS: BP 145/91 (BP Location: Left arm, Patient Position: Lying) Pulse 109 Temp 36.7 C (98.1 F) (Temporal) Resp 18 Ht 5' (1.524 m) Wt 200 lb (90.7 kg) SpO2 99% BMI 39.06 kg/m INTAKE/OUTPUT: I/O last 3 completed shifts: In: 360 (4 mL/kg) [P.O.:360] Out: 9315 (102.7 mL/kg) [Urine:8965 (2.7 mL/kg/hr); Stool:350] Weight: 90.7 kg No intake/output data recorded. CONSTITUTIONAL: Awake and Alert ABDOMEN: soft, ostomy with brown stool in bag INCISION: clean, dry, sero-sanguinous drainage, packing/ABD in place with mesh underwear in place Data: CBC: Recent Labs 05/28/248 05/29/24 0114 05/30/24 0107 WBC 5.3 5.0 5.7 HGB 7.4* 7.6* 7.4* HCT 23.1* 23.4* 23.1* PLT 179 174 174 BMP: Recent Labs 05/28/24 0218 05/29/24 0047 05/30/24 0107 NA 132* 132* 133* K 3.8 4.1 4.1 CL 102 100 100 CO2 26 26 28 BUN 23* 20 18 CREATININE 0.60* 0.60* 0.57* GLUCOSE 192* 236* 130* Hepatic: Recent Labs 05/28/24 0218 05/29/24 0047 05/30/24 0107 AST 19 15 18 ALT <6 <6 <6 BILITOT 0.2 0.3 0.3 ALKPHOS 412* 406* 379* ASSESSMENT AND PLAN: 44-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, 05/23, 05/26 with urethral stricture status post Donohue catheter insertion 05/21 and laparoscopic diverting loop sigmoid colostomy 05/23 WBC 5.7, Hgb 7.4 stable Wound care following, appreciate recs Atbx per medicine, Has PICC line Anemia- improving as above, multifactorial, present on admission with subsequent drift from resuscitation, transfuse PRN Diet as tolerated Urethral stricture-catheter will remain in place until after discharge for outpatient evaluation with urology Diabetes with DKA- improving with current medical management Medical mgmt per primary team Disposition: Patient doing well today s/p debridement. Okay for diet as tolerated. Recommend packing change every day. Will remove ostomy bar today when nursing or wound care changes appliance. Okay for discharge when coordinated. DWAIN Aldrich Cosigned by Megan Mercado MD at 05/30/2024 11:17 AM EDT Images from the original note were not included. Hospitalist Progress Note 05/29/[phone]: Please page me ([phone]) for patient care issues. [phone]: Please page [facility] Hospitalist for any issues. Subjective: Admit Date: 05/21/2024 PCP: No primary care provider on file. Room#: B2-258/B2-258 Galo Ro is a 44 y.o. 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 Discussed with him that the ostomy has to stay in for 6 to 8 months at least Did discussed with the brother Pernell about his treatment plan. . Denies chest pain, sob, abdominal pain, nausea, vomiting, diarrhea, constipation, fevers, or chills. Adult diet Regular; 4 carb choices (60 gm/meal) 24HR INTAKE/OUTPUT: Intake/Output Summary (Last 24 hours) at 05/29/2024 1201 Last data filed at 05/29/2024 1059 Gross per 24 hour Intake 360 ml Output 5600 ml Net -5240 ml LABS: CBC: Recent Labs 05/27/24 0237 05/28/248 05/29/24 0114 WBC 6.2 5.3 5.0 RBC 2.97* 2.87* 2.94* HGB 7.7* 7.4* 7.6* HCT 23.9* 23.1* 23.4* MCV 80.5 80.5 79.6 RDW 14.2 14.1 14.3 PLT 161 179 174 BMP: Recent Labs 05/27/2423605/28/248 05/29/24 0047 NA 132* 132* 132* K 4.2 3.8 4.1 CL 103 102 100 CO2 24 26 26 BUN 21 23* 20 CREATININE 0.66* 0.60* 0.60* GLUCOSE 212* 192* 236* CALCIUM 7.1* 6.9* 7.1* ANIONGAP 5 4 6 LIVER PROFILE: Recent Labs 05/27/2423605/28/248 05/29/24 0047 AST 21 19 15 ALT <6 <6 <6 BILITOT 0.3 0.2 0.3 ALKPHOS 197* 412* 406* PROT 5.3* 5.1* 5.2* PT/INR: No results for input(s): "PROTIME", "INR" in the last 72 hours. CARDIAC ENZYMES: No results for input(s): "TROPONINI" in the last 72 hours. Procalcitonin: No results found for: "PROCAL" @RISRSLTSPECIALTY@ Objective: Vitals: BP 131/82 (BP Location: Left arm, Patient Position: Lying) Pulse 115 Temp 36.9 C (98.5 F) (Temporal) Resp 18 Ht 5' (1.524 m) Wt 200 lb (90.7 kg) SpO2 97% BMI 39.06 kg/m Pulse Ox: SpO2 Av.7 % Min: 97 % Max: 98 % Supplemental O2: O2 Flow Rate (L/min): 3 L/min 05/29/2024 General appearance: Appears to be in no distress, very hard of hearing, appears stated age, AAOX3 Oral: Tongue is semi-moist Cardiovascular: S1/S2 heard, RRR Respiratory: Diminished breath sounds bilaterally and no wheezing or rhonchi abdomen: Obese, positive ostomy , soft, non-tender, non-distended bowel sounds positive Musculoskeletal: No obvious deformities seen Skin: Neurological: Awake alert oriented x 3 no acute motor or sensory deficits Medications: ceFAZolin, 2,000 mg, IntraVENous, q8h collagenase, , Topical, Daily insulin lispro, 0-6 Units, SubCUTAneous, q6h And insulin lispro, 0-6 Units, SubCUTAneous, Nightly metroNIDAZOLE, 500 mg, Oral, q8h sodium chloride 0.9%, 10 mL, IntraVENous, 2 times per day sodium chloride 0.9%, 10 mL, IntraCATHeter, q12h sodium hypochlorite, , Irrigation, Daily PRN medications: acetaminophen, collagenase, dextrose, dextrose, glucagon (rDNA), glucose, hydrOXYzine pamoate, morphine sulfate OR morphine sulfate, naloxone, ondansetron ODT OR ondansetron, oxyCODONE OR oxyCODONE, potassium chloride CR OR potassium chloride CR OR potassium chloride CR OR potassium chloride OR potassium chloride OR potassium chloride OR potassium chloride, sodium chloride, sodium chloride 0.9%, sodium chloride 0.9%, sodium hypochlorite Assessment 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, 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/26, will discontinue vancomycin and continue metronidazole along with cefazolin and transition to cefdinir and metronidazole at discharge DKA with uncontrolled type 1 diabetes-out of DKA now, monitor blood sugars Pseudohyponatremia Acute on chronic anemia with hemoglobin of 7.4, transfuse as needed Hypokalemia-resolved Fluid overload-appears to be stable now Acute on chronic anemia Chronic problems Urinary retention-has a Donohue catheter, new after discharge and follow-up with urology service History of MRDD Type 2 diabetes mellitus with hyperglycemia Plan Reviewed CBC and BMP and ordered CBC and BMP in a.m. No further debridements planned as per general surgery Follow-up on ostomy care Cussed with ID stewardship regarding de-escalation of antibiotics , discontinue cefepime and vancomycin and continue with cefazolin and metronidazole p.o. Discussed with TCC, now [facility] given his ostomy, wound care and Donohue catheter -am labs, replace lytes prn -increase activity Diet Adult diet Regular; 4 carb choices (60 gm/meal) DVT Prophylaxis [x] Lovenox, [] Heparin, [x] SCDs, [] Ambulation [] Already on Anticoagulation GI Prophylaxis [] PPI, [] H2 Bienvenido, [] Carafate, [] Diet/Tube Feeds Code Status Full Code Disposition Patient requires continued admission due to Jhoan's gangrene MDM [] Low, [] Moderate,[x] High Patient's risk as above Total time spent (which include face to face and non face to face encounters) : 40 minutes Toxic drug monitoring/narrow therapeutic index drug monitoring : # Drug name : Insulin # Route administered : Subcutaneous # Method of monitoring : Blood sugar monitoring and hypoglycemia protocol Extended Emergency Contact Information Primary Emergency Contact: JiaGeorges Mobile Relation: Sibling Secondary Emergency Contact: JiaPernell Mobile Relation: Brother Advance Directive: Full Code Discharge planning: Discharge plan to LTAC Gayatri Zhong MD Division of Hospitalist Medicine Inpatient Medical Services/[facility] Surgery Post Op Progress Note PATIENT NAME: Miranda Ro TODAY'S DATE: 05/29/2024 SUBJECTIVE: General Surgery follow up on wound and diverting ostomy. Overall doing well. Patient wanting to know how long ostomy needs to remain in place. We discussed this will be in place until wound heals. No nausea or emesis. Minimal pain at abdomen/wound at gluteus. Pain controlled YES/NO: Yes Other Complaints YES/NO: No Flatus/BM/or Ostomy function YES/NO: Yes OBJECTIVE: VITALS: BP 131/88 (BP Location: Left arm, Patient Position: Lying) Pulse 111 Temp 36.7 C (98.1 F) (Temporal) Resp 18 Ht 5' (1.524 m) Wt 200 lb (90.7 kg) SpO2 98% BMI 39.06 kg/m INTAKE/OUTPUT: I/O last 3 completed shifts: In: 210 (2.3 mL/kg) [P.O.:210] Out: 7150 (78.8 mL/kg) [Urine:6850 (2.1 mL/kg/hr); Stool:300] Weight: 90.7 kg I/O this shift: In: 360 [P.O.:360] Out: 50 [Stool:50] CONSTITUTIONAL: awake and alert ABDOMEN: soft, nontender, and nondistended INCISION: clean, dry, no drainage. Lap sites intact. Ostomy healthy appearing with stool within the bag. 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, 05/23, 05/26 with urethral stricture status post Donohue catheter insertion 05/21 and laparoscopic diverting loop sigmoid colostomy 05/23 WBC 5.0, Hgb 7.6 stable Wound care following, appreciate recs Atbx per medicine, Has PICC line Anemia- improving as above, multifactorial, present on admission with subsequent drift from resuscitation, transfuse PRN Diet as tolerated Urethral stricture-catheter will remain in place until after discharge for outpatient evaluation with urology Diabetes with DKA- improving with current medical management Medical mgmt per primary team Disposition: Patient doing well today s/p debridement. Okay for diet as tolerated. Recommend packing change every day. Will remove ostomy bar prior to discharge or this Sunday, whichever arrives first. No further surgical planning at this time, will follow. KALIA Peña CNP Cosigned by Megan Mercado MD at 05/29/2024 12:19 PM EDT Images from the original note were not included. Hospitalist Progress Note 05/28/[id number]: Please page me ([phone]) for patient care issues. [phone]: Please page [facility] Hospitalist for any issues. Subjective: Admit Date: 05/21/2024 PCP: No primary care provider on file. Room#: [facility]258/[facility] Galo Ro is a 44 y.o. 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 meds at discharge, waiting for SNF precertification Indicates to me that he wants the ostomy out . Denies chest pain, sob, abdominal pain, nausea, vomiting, diarrhea, constipation, fevers, or chills. Adult diet Regular; 4 carb choices (60 gm/meal) 24HR INTAKE/OUTPUT: Intake/Output Summary (Last 24 hours) at 05/28/2024 1515 Last data filed at 05/28/2024 0725 Gross per 24 hour Intake 510 ml Output 2750 ml Net -2240 ml LABS: CBC: Recent Labs 05/26/24 0537 05/27/24 0237 05/28/24 0218 WBC 6.3 6.2 5.3 RBC 2.74* 2.97* 2.87* HGB 7.1* 7.7* 7.4* HCT 22.1* 23.9* 23.1* MCV 80.7 80.5 80.5 RDW 13.9 14.2 14.1 PLT 136* 161 179 BMP: Recent Labs 05/26/24 0537 05/27/24 0237 05/28/24 021 NA 134* 132* 132* K 3.9 4.2 3.8 CL 103 103 102 CO2 22 24 26 BUN 11 21 23* CREATININE 0.60* 0.66* 0.60* GLUCOSE 145* 212* 192* CALCIUM 6.9* 7.1* 6.9* ANIONGAP 9 5 4 LIVER PROFILE: Recent Labs 05/26/24 0537 05/27/2423605/28/24 021 AST 18 21 19 ALT <6 <6 <6 BILITOT 0.4 0.3 0.2 ALKPHOS 155* 197* 412* PROT 5.2* 5.3* 5.1* PT/INR: No results for input(s): "PROTIME", "INR" in the last 72 hours. CARDIAC ENZYMES: No results for input(s): "TROPONINI" in the last 72 hours. Procalcitonin: No results found for: "PROCAL" @RISRSLTSPECIALTY@ Objective: Vitals: BP 156/94 (BP Location: Left arm, Patient Position: Lying) Pulse 112 Temp 36.5 C (97.7 F) (Temporal) Resp 16 Ht 5' (1.524 m) Wt 200 lb (90.7 kg) SpO2 98% BMI 39.06 kg/m Pulse Ox: SpO2 Av % Min: 92 % Max: 98 % Supplemental O2: O2 Flow Rate (L/min): 3 L/min 05/28/2024 General appearance: Appears to be in no distress, very hard of hearing, appears stated age, AAOX3 Oral: Tongue is semi-moist Cardiovascular: S1/S2 heard, RRR Respiratory: Diminished breath sounds bilaterally and no wheezing or rhonchi abdomen: Obese, positive ostomy , soft, non-tender, non-distended bowel sounds positive Musculoskeletal: No obvious deformities seen Skin: Neurological: Awake alert oriented x 3 no acute motor or sensory deficits Medications: ceFAZolin, 1,000 mg, IntraVENous, q8h collagenase, , Topical, Daily insulin lispro, 0-6 Units, SubCUTAneous, q6h And insulin lispro, 0-6 Units, SubCUTAneous, Nightly metroNIDAZOLE, 500 mg, IntraVENous, q8h sodium chloride 0.9%, 10 mL, IntraVENous, 2 times per day sodium chloride 0.9%, 10 mL, IntraCATHeter, q12h sodium hypochlorite, , Irrigation, Daily PRN medications: acetaminophen, collagenase, dextrose, dextrose, glucagon (rDNA), glucose, hydrOXYzine pamoate, morphine sulfate OR morphine sulfate, naloxone, ondansetron ODT OR ondansetron, oxyCODONE OR oxyCODONE, potassium chloride CR OR potassium chloride CR OR potassium chloride CR OR potassium chloride OR potassium chloride OR potassium chloride OR potassium chloride, sodium chloride, sodium chloride 0.9%, sodium chloride 0.9%, sodium hypochlorite Assessment 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, 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/26, will discontinue vancomycin and continue metronidazole along with cefepime and transition to cefdinir and metronidazole at discharge DKA with uncontrolled type 1 diabetes-out of DKA now, monitor blood sugars Pseudohyponatremia Acute on chronic anemia with hemoglobin of 7.4, transfuse as needed Hypokalemia-resolved Fluid overload-appears to be stable now Acute on chronic anemia Chronic problems Urinary retention-has a Donohue catheter, new after discharge and follow-up with urology service History of MRDD Type 2 diabetes mellitus with hyperglycemia Plan Reviewed CBC and BMP and ordered CBC and BMP in a.m. Chart reviewed, general surgery consult reviewed, no further debridements Follow-up on ostomy care Cussed with ID stewardship regarding de-escalation of antibiotics , discontinue cefepime and vancomycin and continue with cefazolin and metronidazole p.o. 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 MDM [] Low, [] Moderate,[x] High Patient's risk as above Total time spent (which include face to face and non face to face encounters) : 40 minutes Toxic drug monitoring/narrow therapeutic index drug monitoring : # Drug name : Insulin # Route administered : Subcutaneous # Method of monitoring : Blood sugar monitoring and hypoglycemia protocol Extended Emergency Contact Information Primary Emergency Contact: Georges Ro Mobile Relation: Sibling Secondary Emergency Contact: Pernell Ro Mobile Relation: Brother Advance Directive: Full Code Discharge planning: TBD Gayatri Zhong MD Division of Hospitalist Medicine Inpatient Medical Services/[facility] Surgery Post Op Progress Note PATIENT NAME: Miranda Ro TODAY'S DATE: 05/28/2024 SUBJECTIVE: Follow up s/p debridements. Patient seen this morning resting in bed, pleasant and talkative. He notes controlled pain and denies discomfort at present. Patient notes okay appetite, denies fever/chills or nausea/vomiting. He notes that his packing has already been changed this morning. Ostomy with continued function. No overnight events noted. Pain controlled Yes Other Complaints No Flatus/BM/or Ostomy function Yes OBJECTIVE: VITALS: BP 156/94 (BP Location: Left arm, Patient Position: Lying) Pulse 112 Temp 36.5 C (97.7 F) (Temporal) Resp 16 Ht 5' (1.524 m) Wt 200 lb (90.7 kg) SpO2 98% BMI 39.06 kg/m INTAKE/OUTPUT: I/O last 3 completed shifts: In: 750 (8.3 mL/kg) [P.O.:750] Out: 5050 (55.7 mL/kg) [Urine:4350 (1.3 mL/kg/hr); Stool:700] Weight: 90.7 kg I/O this shift: In: 210 [P.O.:210] Out: - CONSTITUTIONAL: Awake and Alert ABDOMEN: soft. Ostomy with healthy stoma and brown stool in bag INCISION: clean, good granulation tissue, packing in place with ABD dressings and mesh underwear Data: CBC: Recent Labs 05/26/24 0537 05/27/24 0237 05/28/24 0218 WBC 6.3 6.2 5.3 HGB 7.1* 7.7* 7.4* HCT 22.1* 23.9* 23.1* PLT 136* 161 179 BMP: Recent Labs 05/26/24 0537 05/27/24 0237 05/28/248 NA 134* 132* 132* K 3.9 4.2 3.8 CL 103 103 102 CO2 22 24 26 BUN 11 21 23* CREATININE 0.60* 0.66* 0.60* GLUCOSE 145* 212* 192* Hepatic: Recent Labs 05/26/24 0537 05/27/24 0237 05/28/248 AST 18 19 ALT <6 <6 <6 BILITOT 0.4 0.3 0.2 ALKPHOS 155* 197* 412* ASSESSMENT AND PLAN: 44-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, 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, 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 urethral stricture status post Donohue catheter insertion 05/21 and laparoscopic diverting loop sigmoid colostomy 05/23 WBC 5.3, Hgb 7.4 stable Wound care following, appreciate recs Continue broad-spectrum IV antibiotics for Jhoan's gangrene, PICC line placed Anemia- improving as above, multifactorial, present on admission with subsequent drift from resuscitation, transfuse PRN Diet as tolerated Urethral stricture-catheter will remain in place until after discharge for outpatient evaluation with urology Diabetes with DKA- improving with current medical management Medical mgmt per primary team Disposition: Patient doing well today s/p debridement. Okay for diet as tolerated. Recommend packing change every day. Will remove ostomy bar prior to discharge or this Sunday, whichever arrives first. No further surgical planning at this time, will follow. DWAIN Aldrich Cosigned by Megan Mercado MD at 05/28/2024 2:58 PM EDT Images from the original note were not included. Hospitalist Progress Note 05/27/2024 [phone]: Please page me ([phone]) for patient care issues. [phone]: Please page [facility] Hospitalist for any issues. Subjective: Admit Date: 05/21/2024 PCP: No primary care provider on file. Room#: B2-258/B2-258 Galo Ro is a 44 y.o. male who presents with Jhoan's gangrene Interval History: Chart reviewed, he was admitted with Jhoan's gangrene, s/p debridement, and also had a laparoscopic diverting loop sigmoid colostomy on 05/23. PICC is placed and is on broad-spectrum IV antibiotics. Also has a Donohue catheter because of urethral stricture. He also presented with DKA and is under medical management. He is out of DKA now Hard of hearing and communicates via writing. Continues to have ostomy output but denies any abdominal pain nausea or vomiting . Denies chest pain, sob, abdominal pain, nausea, vomiting, diarrhea, constipation, fevers, or chills. Adult diet Regular; 4 carb choices (60 gm/meal) 24HR INTAKE/OUTPUT: Intake/Output Summary (Last 24 hours) at 05/27/2024 1319 Last data filed at 05/27/2024 0801 Gross per 24 hour Intake 500 ml Output 2810 ml Net -2310 ml LABS: CBC: Recent Labs 05/25/2463205/26/2437 05/27/24 023 WBC 7.2 6.3 6.2 RBC 2.74* 2.74* 2.97* HGB 7.1* 7.1* 7.7* HCT 22.1* 22.1* 23.9* MCV 80.7 80.7 80.5 RDW 13.9 13.9 14.2 PLT 146 136* 161 BMP: Recent Labs 05/25/2463205/26/24 0537 05/27/24 023 NA 135* 134* 132* K 3.8 3.9 4.2 CL 106 103 103 CO2 23 22 24 BUN 15 11 21 CREATININE 0.63* 0.60* 0.66* GLUCOSE 102* 145* 212* CALCIUM 7.2* 6.9* 7.1* ANIONGAP 6 9 5 LIVER PROFILE: Recent Labs 05/25/2463205/26/24 0537 05/27/24 023 AST 17 18 21 ALT <6 <6 <6 BILITOT 0.3 0.4 0.3 ALKPHOS 130 155* 197* PROT 5.4* 5.2* 5.3* PT/INR: No results for input(s): "PROTIME", "INR" in the last 72 hours. CARDIAC ENZYMES: No results for input(s): "TROPONINI" in the last 72 hours. Procalcitonin: No results found for: "PROCAL" @RISRSLTSPECIALTY@ Objective: Vitals: BP 134/76 Pulse 106 Temp 36.4 C (97.6 F) (Temporal) Resp 16 Ht 5' (1.524 m) Wt 200 lb (90.7 kg) SpO2 98% BMI 39.06 kg/m Pulse Ox: SpO2 Av.6 % Min: 95 % Max: 100 % Supplemental O2: O2 Flow Rate (L/min): 3 L/min 05/27/2024 General appearance: Appears to be in mild distress, very hard of hearing, appears stated age, AAOX3 Oral: Tongue is semi-moist Cardiovascular: S1/S2 heard, RRR Respiratory: Diminished breath sounds bilaterally and no wheezing or rhonchi abdomen: Obese, positive ostomy , soft, non-tender, non-distended bowel sounds positive Musculoskeletal: No obvious deformities seen Skin: Neurological: Awake alert oriented x 3 no acute motor or sensory deficits Medications: cefepime, 2,000 mg, IntraVENous, q8h [START ON 05/28/2024] chlorhexidine, , Topical, Daily insulin lispro, 0-6 Units, SubCUTAneous, q6h And insulin lispro, 0-6 Units, SubCUTAneous, Nightly metroNIDAZOLE, 500 mg, IntraVENous, q8h sodium chloride 0.9%, 10 mL, IntraVENous, 2 times per day sodium chloride 0.9%, 10 mL, IntraCATHeter, q12h sodium hypochlorite, , Irrigation, BID vancomycin, 1,500 mg, IntraVENous, q12h PRN medications: acetaminophen, dextrose, dextrose, glucagon (rDNA), glucose, hydrOXYzine pamoate, morphine sulfate OR morphine sulfate, naloxone, ondansetron ODT OR ondansetron, oxyCODONE OR oxyCODONE, potassium chloride CR OR potassium chloride CR OR potassium chloride CR OR potassium chloride OR potassium chloride OR potassium chloride OR potassium chloride, sodium chloride, sodium chloride 0.9%, sodium chloride 0.9% Assessment 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, 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/26, ID following and continue cefepime and vancomycin and metronidazole, discussed with ID stewardship but he is allergic to penicillin will discuss de-escalation of antibiotics tomorrow DKA with uncontrolled type 1 diabetes-out of DKA now, will consult endocrine Pseudohyponatremia Acute on chronic anemia with hemoglobin of 7.7 Hypokalemia-resolved Fluid overload Acute on chronic anemia Chronic problems Urinary retention-has a Donohue catheter History of MRDD Type 2 diabetes mellitus with hyperglycemia Plan Reviewed CBC and BMP and ordered CBC and BMP in a.m. 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 MDM [] Low, [] Moderate,[x] High Patient's risk as above Total time spent (which include face to face and non face to face encounters) : 40 minutes Toxic drug monitoring/narrow therapeutic index drug monitoring : # Drug name : Vancomycin # Route administered : Intravenous # Method of monitoring : Daily monitoring Extended Emergency Contact Information Primary Emergency Contact: Georges Ro Mobile Relation: Sibling Secondary Emergency Contact: Pernell Ro Mobile Relation: Brother Advance Directive: Full Code Discharge planning: TBD Gayatri Zhong MD Division of Hospitalist Medicine Inpatient Medical Services/[facility] Images from the original note were not included. Surgery Post Op Progress Note PATIENT NAME: Miranda Ro TODAY'S DATE: 05/27/2024 SUBJECTIVE: Follow up s/p debridement. Patient seen this morning during co-evaluation with wound care. He is resting in bed and pleasant. Patient denies pain or discomfort. He is texting on his phone without distress. PICC line placed earlier. He continues to have ostomy output and denies abdominal pain, nausea/vomiting. No overnight events noted. Pain controlled Yes Other Complaints No Flatus/BM/or Ostomy function Yes OBJECTIVE: VITALS: BP 134/76 Pulse 106 Temp 36.4 C (97.6 F) (Temporal) Resp 16 Ht 5' (1.524 m) Wt 200 lb (90.7 kg) SpO2 98% BMI 39.06 kg/m INTAKE/OUTPUT: I/O last 3 completed shifts: In: 1258 (13.9 mL/kg) [P.O.:450; I.V.:100 (1.1 mL/kg); IV Piggyback:708] Out: 5765 (63.5 mL/kg) [Urine:5550 (1.7 mL/kg/hr); Stool:215] Weight: 90.7 kg I/O this shift: In: 250 [P.O.:250] Out: 550 [Urine:400; Stool:150] CONSTITUTIONAL: Awake and Alert ABDOMEN: soft. Ostomy with brown stool in bag INCISION: clean, dry, no drainage. Packing removed. Santyl placed by wound care and Joyce wet-to-dry Kerlix placed. 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, 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 urethral stricture status post Donohue catheter insertion 05/21 and laparoscopic diverting loop sigmoid colostomy 05/23 WBC 6.2, Hgb 7.7 improving Wound care following, appreciate recs Continue broad-spectrum IV antibiotics for Jhoan's gangrene, PICC line placed Anemia- improving as above, multifactorial, present on admission with subsequent drift from resuscitation, transfuse PRN Diet as tolerated Urethral stricture-catheter will remain in place until after discharge for outpatient evaluation with urology Diabetes with DKA- improving with current medical management Medical mgmt per primary team Disposition: Patient doing well today s/p debridement and tolerated dressing change well. Okay for diet as tolerated, continue diet. Recommend packing change every day. No further surgical planning at this time, will follow. DWAIN Aldrich Cosigned by Megan Mercado MD at 05/27/2024 1:10 PM EDT Pharmacy to Dose Vancomycin - Progress Note Recent Labs 05/25/24 0633 05/26/24 0537 05/27/24 0237 BUN 15 11 21 CREATININE 0.63* 0.60* 0.66* Lab Results Component Value Date [facility] 31.0 05/22/2024 Doses, serum creatinine, and vancomycin levels interfaced automatically to [email or web address] and data has been analyzed and interpreted. Infectious Diagnosis: ssti Est CrCl: 125 mL/min (Cockcroft-Gault) Assessment: Current regimen vancomycin 1500 mg every 12 hours. Predicted AUC = 539 mg/L*hr (goal 400-600 mg/L*hr) Plan: Is the current dose therapeutic? [x] Yes - obtain next level on 05/29 unless predicted AUC is sub-/supra-therapeutic or change in serum creatinine. Trend serum creatinine. Trend AUC using Bayesian Modeling. Orders placed. DATE: 05/27/24 TIME: 9:03 AM Flavio Stein PharmD Clinical Pharmacist Available via Secure Chat Images from the original note were not included. PHYSICAL THERAPY [facility] Re-Evaluation Name/MRN: Miranda Ro ([id number]) Evaluation Date: 05/27/2024 Date of : 1980 Admission Date: 05/21/2024 3:11 PM Age: 44 y.o. Room/Bed: [facility] A Discharge Recommendation: Jail Facility Other: TBD at next level of care Assessment IMPRESSION: Pt re-evaluated this date after multiple surgeries includin/12 debridement [place]niers gangrene, 05/23 sigmoid colostomy, 05/26 repeat debridement. He has h/o MRDD. At baseline is IND with no device, on evaluation 05/22 demo bed mobility and transfers SBA-min A. Pt in Envella bed, today demo rolling mod A and unable to complete full sit despite max x1. Would highly recommend 2 person assist for therapist and pt safety. He would benefit from SNF to promote mobility Admitting Diagnosis: sepsis Prognosis: fair Performance Deficits /Impairments: Decreased Functional Mobility, Decreased Strength, Decreased Safety Awareness, Decreased Endurance, Decreased Balance, and Decreased Cognition Decision Making: Medium Complexity Subjective Per RN pt okay for therapy, is pleasant and agree to PT Pain: Pt denies any current pain. Past Medical History: Past Medical History: Diagnosis Date Chavarria's palsy Deaf Diabetes mellitus (HCC) Gout Hypertension Obesity Scoliosis Speech impairment Past Surgical History: Past Surgical History: Procedure Laterality Date APPENDECTOMY LAPAROSCOPIC COLOSTOMY 05/23/2024 Flexible sigmoidoscopy, simple colostomy placement PELVIS DEBRIDEMENT 05/21/2024 jhoan's gangrene PELVIS DEBRIDEMENT 05/26/2024 debridement of perineal wound UPPER GASTROINTESTINAL ENDOSCOPY 06/18/2020 Dr lazar/CAL WOUND DEBRIDEMENT Right 05/23/2024 Second look debridement right buttock & perineum Admission Diagnosis: Patient Active Problem List Diagnosis Date Noted Sepsis with acute renal failure and septic shock, due to unspecified organism, unspecified acute renal failure type ([facility]) 05/21/2024 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 05/21/2024 Cellulitis of buttock 05/21/2024 Wound of left buttock 05/21/2024 Necrotizing soft tissue infection 05/21/2024 Class 3 severe obesity due to excess calories without serious comorbidity with body mass index (BMI) of 40.0 to 44.9 in adult ([facility]) 09/06/2020 Helicobacter pylori gastritis 09/06/2020 Type 2 diabetes mellitus with hyperglycemia ([facility]) 09/06/2020 Hearing impaired 09/06/2020 Essential hypertension 09/06/2020 Noncompliance with diabetes treatment 06/18/2020 Unable to care for self 06/18/2020 Hypertriglyceridemia 06/18/2020 Scoliosis 12/03/2014 Speech impairment 12/03/2014 Gout 12/03/2014 Medical Precautions: No active isolations Proper PPE donned/doffed in accordance with facility standards. Fall Risk: Jones Fall Risk Score: 35 (Low Risk) Jones Fall Risk Score: 35 (Medium Risk) Precautions/Restrictions: N/A Family/Caregiver Present: none Overall Cognitive Status: Exceptions - Following commands: follows one step commands with increased time and follows one step commands with repetition - Safety judgement: decreased awareness of need for assistance and decreased awareness of need for safety - Problem solving: assistance required to generate solutions, assistance required to implement solutions, assistance required to identify errors made, assistance required to correct errors made, and decreased awareness of errors - Initiation: requires cues for all - Sequencing: requires cues for all Overall Orientation Status: Oriented to Person Vision: Not Assessed Hearing: normal Social/Functional History Patient admitted from home. Lives With: Alone Type of Home: apartment - [address] community Home Layout: Single Level Home Home Access: Elevator - brother reports he does complete steps for exercise Bathroom Shower/Tub: Tub/Shower Combo Toilet: Standard Home Equipment: none Homemaking Responsibilities: Independent Receives Help From: Family Active Metal Can Inspector: No Prior Level of Function Prior Level of ADL Function: Independent Prior Level of Mobility: Independent; Device: None Prior Level of Transfers: Independent Objective Lower Extremity Assessment AROM: WFL PROM: Not assessed this session Strength: Exceptions: grossly decreased, RLE: hip flex 1/5 knee ext 1/5 LLE: hip flex 1/5 knee ext 1/5 Sensation: Not assessed this session Bed Mobility: Supine to sit: Dependent, Pt able to roll bilat with mod A with use bed rails, increased time and assist at trunk. He attempt to transfers supine> sit with max x1 twice and unable to complete. Therapist assist to manage BLE to EOB and initiate transfer. Pt with heavy retro lean, able to clear shoulders but not achieve sit. He require max cues and unable to complete.Pt is in Envella bed, would recommend 2 person assist. Transport team then enter to take pt to procedure Sit to supine: Dependent Rolling to right: Mod Assist Rolling to left: Mod Assist Transfers NT Ambulation Did not assess this session. Outcome Measures AM-PAC How much HELP from another person do you currently need Turning from your back to your side while in a flat bed without using bedrails?: A Little Moving from lying on your back to sitting on the side of a flat bed without using bedrails?: Total Moving to and from a bed to a chair (including a wheelchair)?: Total Standing up from a chair using your arms (wheelchair or bedside chair)?: Total Walking in a hospital room?: Total Stair climbing assessed?: No AM-PAC Inpatient Mobility Raw Score (No Stairs) : 7 [facility] Score: Bed activity Plan Pt would benefit from skilled acute PT services to address Strengthening, Gait Training, Balance Training, Functional Mobility Training, Endurance Training, Safety Education and Training, Pain Management, Equipment Evaluation/Education, and Positioning. Frequency: 5 visits during current hospital admission or until additional recommendations are made Barriers: Lower extremity weakness and Upper extremity weakness Safety/Education Safety Safety Devices in place: All fall risk precautions in place, call light within reach, left in bed, patient at risk for falls, and nurse notified Restraints: No Education Education Given To: patient Education Provided: PT Role, PT Goals, Plan of Care, Precautions, Energy Conservation, Orientation, Equipment, Fall Prevention Education, Discharge Recommendations, and Benefits of Increasing Activity Education Method: Verbal Barriers to Learning: Cognition Education Outcome: Verbalized Understanding and Continued Education Needed Goals Patient Stated Goal: Patient unable to participate in goal setting at this time. Encounter Problems Encounter Problems (Active) Balance Exercise Patient will complete lower extremity exercises for 1-2 sets / 10 reps in order to improve strength and activity tolerance for mobility. Start: 05/22/24 Expected End: 06/03/24 Mobility Patient will ambulate 10 feet with mod A and least restrictive device in order to improve safety and independence with mobility. Start: 05/22/24 Expected End: 06/03/24 PT updated 05/27 Transfers Patient will perform bed mobility with max x1 in order to improve independence and prepare for out of bed mobility. Start: 05/22/24 Expected End: 06/03/24 PT updated 05/27 Patient will complete functional transfers with least restrictive device with max x1 in order to prepare for ambulation. Start: 05/22/24 Expected End: 06/03/24 PT updated 05/27 Therapy Time Individual Co-Treatment Co-Evaluation Time In 0828 Time Out 0836 Minutes 8 Donald Gaytan PT Patient's Physical Therapy Plan of Care supervision is transferred to a [facility] Services Physical Therapist. Goals and/or treatment plan was established in collaboration with patient/family/other representatives. Nutrition Assessment Type and Reason for Visit: Reassess Nutrition Recommendations/Plan: Continue Regular; 4 Carb Choices (60 gm/meal) diet. Per MNT protocol, will initiate Ensure HP BID (8 oz = 160 kcal, 16 g protein), and Stephon BID (1 pkt = 95 kcal, 14 gm AA). Please record % meal and oral nutrition supplement consumed in flow sheet for most accurate nutrient intake assessment. Will continue to monitor weight changes, labs, and overall nutrition status. RD will continue to follow up weekly. Malnutrition Assessment: Malnutrition Status: At risk for malnutrition (Comment) Context: Acute Illness Findings of the 6 clinical characteristics of malnutrition: Energy Intake: 50% or less of estimated energy requirements for 5 or more days Weight Loss: No significant weight loss Body Fat Loss: No significant body fat loss Muscle Mass Loss: No significant muscle mass loss Fluid Accumulation: Mild Extremities [place] Strength: Not Performed Nutrition Assessment: Patient with PMHx of uncontrolled insulin-dependent diabetes, developmental delay presented with severe sepsis secondary to right buttocks and perineal wound infection. Patient met sepsis criteria with tachycardia (120 bpm), hypotension (BP 94/49), tachypnea (RR 24), and leukocytosis (WBC 31). CT abdomen and pelvis showed heterogeneous prostate gland with ring-enhancing low-density foci, contiguous right perineal region inflammation, small abscesses, and extensive soft tissue stranding. Patient has undergone initial debridement and is currently hemodynamically stable. Cultures few S. Aureus, rare E coli, Many gram postive bacilli, moderate gram positive cocci in pairs, rare gram neg bacilli. Continues with cefepime, clindamycin and Vancomycin. s/p laparoscopic diverting loop sigmoid colostomy 05/23. s/p repeat debridement 05/26. Patient currently on a 4 CHO diet. Patient lying in bed upon RD assessment., reports a good appetite eating about 2 meals per day. Denies n/v. CBW 200# per bed scale. Estimated Daily Nutrient Needs: Energy Requirements Based On: Kcal/kg Weight Used for Energy Requirements: Lyndon Weight for Energy Calculation (kg): 48 kg Total Energy Requirements (kcals/day): 30-35 or 1440- 1680 Weight Used for Protein Requirements: Lyndon Weight in Kg Used for Protein Requirements: 48 kg Estimated Total Protein (g/day): 1.5-1.8 or 72-86 Estimated Daily Total Fluid (ml/day): 1. 7 liters or per md Nutrition Related Findings: Pawan: 15. I&O: +108. Edema: mild BUE, nonpitting BLE. Incisions x2. Ostomy. Edentulous. Labs: Na 134, Cr 0.60, glucose 145, calcium 6.9, Alk phos 155, A1c 12.6%. Meds: Maxipime, Humalog, vancomycin Wound Type: Surgical Incision Current Nutrition Therapies: Adult diet Regular; 4 carb choices (60 gm/meal) Current Oral Intake Average Meal Intake: Unable to assess Average Supplements Intake: None Ordered Anthropometric Measures: Height: 152.4 cm (5') Current Body Weight: 90.7 kg (200 lb) (05/26/24) Weight Source: Bed Scale Admission Body Weight: 83.9 kg (185 lb) (05/21 stated) Usual Body Weight: 95.8 kg (211 lb 4.8 oz) (08/2021) % Weight Change (Calculated): -12.4 Lyndon Body Weight (lbs) (Calculated): 106 lbs Lyndon Body Weight (Kg) (Calculated): 48 kg % Lyndon Body Weight (Calculated): 188.7 % BMI (kg/m2) (Calculated): 39.1 Weight Adjustment For: No Adjustment BMI Categories: Obese Class 1 (BMI 30.0-34.9) Nutrition Interventions: Nutrition Education/Counseling: No recommendation at this time Coordination of Nutrition Care: Continue to monitor while inpatient Plan of Care discussed with: patient, RN Goals: Previous Goal Met: Progressing toward Goal(s) Goals: Meet at least 75% of estimated needs, by next RD assessment Nutrition Monitoring and Evaluation: Behavioral-Environmental Outcomes: Readiness for Change (poor dm) Food/Nutrient Intake Outcomes: Food and Nutrient Intake, Supplement Intake Physical Signs/Symptoms Outcomes: Biochemical Data, Chewing or Swallowing, GI Status, Nausea or Vomiting, Skin, Weight, Nutrition Focused Physical Findings, Hemodynamic Status, Fluid Status or Edema Discharge Planning: Too soon to determine Shelbi Herrera RD Contact: *[phone] Images from the original note were not included. PHYSICAL THERAPY [facility] Name/MRN: Miranda Ro ([id number]) Date: 05/26/2024 Chart review complete with pt currently out of room secondary to in surgery for debridement. Will continue when medically stable to participate. Katia Silva PTA Cosigned by Donald Gaytan PT at 05/26/2024 11:18 AM EDT Hospitalist Progress Note 05/26/2024 Subjective: Admit Date: 05/21/2024 PCP: No primary care provider on file. Room#: B2-258/B2-258 A BRIEF HOSPITAL COURSE: Mr. Ro presented to the Emergency Department post-debridement with a right buttocks and perineal wound that had been present for several weeks. He was found to have severe sepsis. On arrival, he was tachycardic with a heart rate of 120 bpm, meeting sepsis criteria with blood pressure 94/49 and respiratory rate 24. He was started on cefepime. Laboratory, Imaging, and Diagnostic Test Results - WBC: 31 - Hemoglobin: 11.9 - MCV: 75.9 - Sodium: 122 - Chloride: 78 - CO2: 10 - BUN: 132 - Creatinine: 1.35 - LFTs: 180 - ALT and AST: normal - Anion gap: 9 (previously 14) CT abdomen and pelvis: - Heterogeneous prostate gland with ring-enhancing low-density foci - Contiguous right perineal region suspicious for inflammation - Small abscesses - Extensive soft tissue stranding and edema in right gluteal and perineal subcutaneous tissues - Urinary bladder distension with mild inflammatory wall thickening - Slight intraluminal gas bubbles suspicious for possible fistula formation - Splenomegaly - Right renal cyst - Mild left renal calcification with nephrolithiasis The patient has uncontrolled insulin-dependent diabetes and was experiencing mild diabetic ketoacidosis. He also presented with hyponatremia, normocytic anemia of chronic disease, hypokalemia, hypomagnesemia, and hypocalcemia. Patient taken back to the OR on 05/23 for further debridement and diverting ostomy placement, and further debridement on 05/26. Metronidazole started on top of clindamycin which was discontinued after further debridement on 05/26. Interval History: Hgb stable at 7.1, he is going to the OR for further debridement today. No overnight issues. Case and plan discussed with patient and bedside nurse. All questions answered. NPO diet with enteral medications 24HR INTAKE/OUTPUT: Intake/Output Summary (Last 24 hours) at 05/26/2024 0731 Last data filed at 05/26/2024 0654 Gross per 24 hour Intake 3566.67 ml Output 5405 ml Net -1838.33 ml Past Medical History: Past Medical History: Diagnosis Date Chavarria's palsy Deaf Diabetes mellitus (HCC) Gout Hypertension Obesity Scoliosis Speech impairment LABS: CBC: Recent Labs 05/24/24 0041 05/25/24 0633 05/26/24 0537 WBC 5.2 7.2 6.3 RBC 2.70* 2.74* 2.74* HGB 7.0* 7.1* 7.1* HCT 21.9* 22.1* 22.1* MCV 81.1 80.7 80.7 RDW 14.1 13.9 13.9 PLT 117* 146 136* BMP: Recent Labs 05/24/24 0041 05/25/24 0633 05/26/24 0537 NA 130* 135* 134* K 4.0 3.8 3.9 CL 103 106 103 CO2 19* 23 22 BUN 15 15 11 CREATININE 0.66* 0.63* 0.60* GLUCOSE 363* 102* 145* CALCIUM 6.8* 7.2* 6.9* ANIONGAP 8 6 9 LIVER PROFILE: Recent Labs 05/25/24 0633 05/26/24 0537 AST 17 18 ALT <6 <6 BILITOT 0.3 0.4 ALKPHOS 130 155* PROT 5.4* 5.2* PT/INR: No results for input(s): "PROTIME", "INR" in the last 72 hours. CARDIAC ENZYMES: No results for input(s): "TROPONINI" in the last 72 hours. Procalcitonin: No results found for: "PROCAL" COVID-19 PCR: No results for input(s): "COVID19" in the last 72 hours. Objective: Vitals: BP 141/72 (BP Location: Left arm, Patient Position: Lying) Pulse 105 Temp 36.4 C (97.5 F) (Temporal) Resp 17 Ht 5' (1.524 m) Wt 185 lb (83.9 kg) SpO2 98% BMI 36.13 kg/m Pulse Ox: SpO2 Av.6 % Min: 94 % Max: 98 % Supplemental O2: O2 Flow Rate (L/min): 2 L/min Physical Exam Physical Examination - General: Patient lying on left side - Skin: Large wound to perineum, extending back with packing in place. Ostomy bag in place and surgical scar well approximated. Has some brown liquid in the ostomy bag. - Head, Eyes, Ears, Nose, Throat: Swollen left eye improved - Respiratory: Lungs clear to bases. - Cardiovascular: Murmur appreciated, regular rate and rhythm, - Abdomen:Non-tender to palpation, donohue draining clear urine. Medications: Scheduled PRN cefepime, 2,000 mg, IntraVENous, q8h clindamycin, 600 mg, IntraVENous, q8h insulin lispro, 0-6 Units, SubCUTAneous, q6h And insulin lispro, 0-6 Units, SubCUTAneous, Nightly metroNIDAZOLE, 500 mg, IntraVENous, q8h sodium chloride 0.9%, 10 mL, IntraVENous, 2 times per day sodium hypochlorite, , Irrigation, BID vancomycin, 1,500 mg, IntraVENous, q12h PRN medications: acetaminophen, dextrose, dextrose, diphenhydrAMINE, glucagon (rDNA), glucose, labetalol OR hydrALAZINE, HYDROmorphone, HYDROmorphone, hydrOXYzine pamoate, LORazepam, meperidine, morphine sulfate OR morphine sulfate, naloxone, ondansetron ODT OR ondansetron, ondansetron, oxyCODONE OR oxyCODONE, oxyCODONE OR oxyCODONE, potassium chloride CR OR potassium chloride CR OR potassium chloride CR OR potassium chloride OR potassium chloride OR potassium chloride OR potassium chloride, sodium chloride, sodium chloride, sodium chloride 0.9% Continuous dextrose 5 % and sodium chloride 0.45 %, 100 mL/hr, Last Rate: 100 mL/hr (05/26/24 0200) Assessment Data: (CAT1) Reviewed 3 or more notes from different specialty or health system (each=1). (CAT1) Reviewed 3 or more labs/studies previously ordered by me not previously counted (each=1, panels count as 1). 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 Patient met sepsis criteria with tachycardia (120 bpm), hypotension (BP 94/49), tachypnea (RR 24), and leukocytosis (WBC 31). CT abdomen and pelvis showed heterogeneous prostate gland with ring-enhancing low-density foci, contiguous right perineal region inflammation, small abscesses, and extensive soft tissue stranding. Patient has undergone initial debridement and is currently hemodynamically stable. Cultures few S. Aureus, rare E coli, Many gram postive bacilli, moderate gram positive cocci in pairs, rare gram neg bacilli - Continue cefepime, clindamycin and Vancomycin - Antibiotics: Cefepime 05/21- Vancomycin 05/21 - Clindamycin 05/21 - 05/26 Metronidazole 05/23 - - Discussed with antibiotic stewardship to continue clindamycin until final surgery. - Monitor vital signs and sepsis criteria - Continue fluid resuscitation as needed - monitor for fluid overload - having dependent edema - in eye Itchy back Hydoxyzine prn Diabetic Ketoacidosis (DKA) with Uncontrolled Type 1 Diabetes - stable Patient presents with mild DKA in the setting of uncontrolled type 1 diabetes. Initial anion gap was 14, now improved to 9 with fluid resuscitation. D5 infusion has been running. - Discontinue DKA lyte protocol - if become hypoglycemia put on D51/2NS - Blood glucose Q6 hours with sliding scale Electrolyte Abnormalities - pseudohyponatremia, hypokalemia, hypomagnesemia, and hypocalcemia. Patient has multiple electrolyte derangements including hyponatremia (Na 122), likely pseudohyponatremia, hypokalemia, hypomagnesemia, and hypocalcemia. These are likely multifactorial due to sepsis, DKA, and fluid shifts. - Monitor and replete electrolytes as needed - Reassess sodium levels with correction for hyperglycemia Acute Kidney Injury - resolved, back to 0.66 Patient presents with elevated BUN (132) and creatinine (1.35), indicative of acute kidney injury. This is likely pre-renal in nature due to sepsis and dehydration. - Continue fluid resuscitation - Monitor urine output - Trend BUN and creatinine Fluid Overload Patient has developed signs of fluid overload, including swollen left eye and peripheral edema, likely secondary to aggressive fluid resuscitation for sepsis and DKA management. - Reassess fluid balance - Consider diuresis if clinically indicated - Monitor for worsening edema or respiratory symptoms Urinary retention - Urology placed catheter during visit and will need to follow up outpatient Anemia Patient has normocytic anemia (Hgb 7.1, MCV 75.9) likely due to chronic disease and ongoing infection. - Monitor hemoglobin levels - Assess for signs of active bleeding - With plans to go to OR and last two days 7 and 7.1 - will transfuse 1 unit of pRBC Plan As a result of the above findings & factors, the following mgmt was pursued: - 05/22- plans as above. - 05/23- VS, labs reviewed, discussed care with antibiotic stewardship - will add metronidazole until all cultures back, continue clindamycin until after final surgical debridement, wound care, follow up cultures, OR today, discussed with surgery before and after debridement - plans to retake him back to the OR again on 05/26 based on surgery completed today. - 05/24- VS, labs reviewed, continue antibiotics, ostomy site intact, continue CLD with NPO at midnight. - 05/25 - VS, labs reviewed, potassium replenished, monitor ostomy out put, and one unit of pRBC may need to be ordered in AM consent was obtained and placed in chart incase they need it to prior to - 05/26- VS, labs reviewed - returned to OR this morning,. Further debridement obtained and Clindymycin discontinued, ostomy has output, will continue to follow with ID, and wound care. Will likely need SNF with possible wound vac in future. - am labs, replace lytes prn - PT/OT/CM/SW - delirium precautions: increase activity and limit nighttime disturbances - DVT prophylaxis: enoxaparin and encourage ambulation Complexity: Chronic illness with severe exacerbation, progression, or side effect of tx (HIGH). Risk: Admission to hospital-level care was considered or occurred (HIGH). Advance Directive: Full Code Anticipated Discharge - Date - 05/28 - Location - SNF - Pending the following - post-surgical plans for DC Total time spent (which include face to face and non face to face encounters) : 42 minutes Toxic drug monitoring/narrow therapeutic index drug monitoring : # Drug name : NA # Route administered : NA # Method of monitoring : NA Extended Emergency Contact Information Primary Emergency Contact: Georges Ro Mobile Relation: Sibling Secondary Emergency Contact: JiaPernell Mobile Relation: Brother Sandee Reeder MD Division of Hospitalist Medicine [facility] Images from the original note were not included. [facility] - Surgery [facility] Physicians Surgery Megan Mercado MD Surgical Progress Note PATIENT NAME: Miranda Ro TODAY'S DATE: 05/25/2024 CC: incisional pain SUBJECTIVE: Pain controlled. (-) nausea/emesis. (-) fevers/chills. (-) flatus. (-) bowel movement. (-) chest pain/dyspnea. (+) ambulating. Good UOP OBJECTIVE: VITALS: BP 127/78 (BP Location: Left arm, Patient Position: Lying) Pulse 94 Temp (!) 35.7 C (96.3 F) (Temporal) Resp 18 Ht 5' (1.524 m) Wt 185 lb (83.9 kg) SpO2 98% BMI 36.13 kg/m INTAKE/OUTPUT: I/O last 3 completed shifts: In: 3790 (45.2 mL/kg) [P.O.:1940; I.V.:1000 (11.9 mL/kg); IV Piggyback:850] Out: 2565 (30.6 mL/kg) [Urine:2550 (0.8 mL/kg/hr); Stool:15] Weight: 83.9 kg I/O this shift: In: 2506.7 [I.V.:2206.7; IV Piggyback:300] Out: - REVIEW OF SYSTEMS: Pertinent positives and negatives as per interval history section PHYSICAL EXAM: Physical Exam Constitutional: General: He is not in acute distress. Appearance: He is not ill-appearing. HENT: Head: Normocephalic and atraumatic. Eyes: General: No scleral icterus. Conjunctiva/sclera: Conjunctivae normal. Cardiovascular: Rate and Rhythm: Normal rate and regular rhythm. Pulmonary: Effort: Pulmonary effort is normal. No respiratory distress. Abdominal: General: There is no distension. Tenderness: There is no abdominal tenderness. Comments: Ostomy pink, minimal gas & stool Musculoskeletal: General: No swelling or tenderness. Cervical back: Normal range of motion and neck supple. Skin: General: Skin is warm. Coloration: Skin is not jaundiced. Comments: Dressing changed and bedside, healthy wound bed Neurological: General: No focal deficit present. Mental Status: He is oriented to person, place, and time. Psychiatric: Mood and Affect: Mood normal. Behavior: Behavior normal. 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 with urethral stricture status post Donohue catheter insertion 05/21 and laparoscopic diverting loop sigmoid colostomy 05/23 Persistent necrotic and purulent tissue on debridement yesterday, but significantly improved from 05/21, Plan for repeat debridement tomorrow, NPO at midnight Consult wound care for ostomy care and wound care assistance going forward Continue broad-spectrum IV antibiotics for Jhoan's gangrene, leukocytosis improved Anemia- multifactorial, present on admission with subsequent drift from resuscitation, transfuse PRN Clear liquid diet, monitor ostomy function Urethral stricture-catheter will remain in place until after discharge for outpatient evaluation with urology Diabetes with DKA- improving with current medical management Discussed with nursing This case had moderate medical decision making and case complexity with 35 minute total care time including chart review, care coordination and face to face encounter. The patient was seen and examined independently and relevant data reviewed by myself. A full chart review was performed. I personally interviewed the patient and performed an individual physical examination. In addition, I discussed the patient's condition and treatment options with them. I have also reviewed and agree with the past medical, family and social history and care plan unless otherwise noted. All of the patient's questions were answered. Megan Mercado MD General Surgery Pager #[phone] Perfect Serve: Megan Mercado 2:07 PM 05/25/2024 Hospitalist Progress Note 05/25/2024 Subjective: Admit Date: 05/21/2024 PCP: No primary care provider on file. Room#: B2258/B2-688 A BRIEF HOSPITAL COURSE: Mr. Ro presented to the Emergency Department post-debridement with a right buttocks and perineal wound that had been present for several weeks. He was found to have severe sepsis. On arrival, he was tachycardic with a heart rate of 120 bpm, meeting sepsis criteria with blood pressure 94/49 and respiratory rate 24. He was started on cefepime. Laboratory, Imaging, and Diagnostic Test Results - WBC: 31 - Hemoglobin: 11.9 - MCV: 75.9 - Sodium: 122 - Chloride: 78 - CO2: 10 - BUN: 132 - Creatinine: 1.35 - LFTs: 180 - ALT and AST: normal - Anion gap: 9 (previously 14) CT abdomen and pelvis: - Heterogeneous prostate gland with ring-enhancing low-density foci - Contiguous right perineal region suspicious for inflammation - Small abscesses - Extensive soft tissue stranding and edema in right gluteal and perineal subcutaneous tissues - Urinary bladder distension with mild inflammatory wall thickening - Slight intraluminal gas bubbles suspicious for possible fistula formation - Splenomegaly - Right renal cyst - Mild left renal calcification with nephrolithiasis The patient has uncontrolled insulin-dependent diabetes and was experiencing mild diabetic ketoacidosis. He also presented with hyponatremia, normocytic anemia of chronic disease, hypokalemia, hypomagnesemia, and hypocalcemia. Patient taken back to the OR on 05/23 for further debridement, and will need repeat debridement on 05/26. Metronidazole started on top of clindamycin Interval History: Potassium replenished, Na slightly low today at 135 Hgb has been between 7 to 7.1 - did obtain consent if it dropped prior to surgery tomorrow - may need a unit. No fever or chills. Does have some itching above the wound. No overnight issues. Case and plan discussed with patient and bedside nurse. All questions answered. Adult diet Clear liquid 24HR INTAKE/OUTPUT: Intake/Output Summary (Last 24 hours) at 05/25/2024 0815 Last data filed at 05/25/2024 0613 Gross per 24 hour Intake 3790 ml Output 2565 ml Net 1225 ml Past Medical History: Past Medical History: Diagnosis Date Chavarria's palsy Deaf Diabetes mellitus (HCC) Gout Hypertension Obesity Scoliosis Speech impairment LABS: CBC: Recent Labs 05/23/248 05/24/24 0041 05/25/24 0633 WBC 6.4 5.2 7.2 RBC 2.92* 2.70* 2.74* HGB 7.6* 7.0* 7.1* HCT 22.9* 21.9* 22.1* MCV 78.4 81.1 80.7 RDW 13.7 14.1 13.9 PLT 137* 117* 146 BMP: Recent Labs 05/23/248 05/24/24 0041 05/25/24 0633 NA 130* 130* 135* K 3.0* 4.0 3.8 CL 100 103 106 CO2 22 19* 23 BUN 15 15 15 CREATININE 0.55* 0.66* 0.63* GLUCOSE 194* 363* 102* CALCIUM 6.9* 6.8* 7.2* ANIONGAP 8 8 6 LIVER PROFILE: Recent Labs 05/25/24 0633 AST 17 ALT <6 BILITOT 0.3 ALKPHOS 130 PROT 5.4* PT/INR: Recent Labs 05/23/2437 PROTIME 13.7* INR 1.2* CARDIAC ENZYMES: No results for input(s): "TROPONINI" in the last 72 hours. Procalcitonin: No results found for: "PROCAL" COVID-19 PCR: No results for input(s): "COVID19" in the last 72 hours. Objective: Vitals: BP 117/67 Pulse 94 Temp 36.1 C (97 F) (Temporal) Resp 18 Ht 5' (1.524 m) Wt 185 lb (83.9 kg) SpO2 97% BMI 36.13 kg/m Pulse Ox: SpO2 Av.9 % Min: 97 % Max: 100 % Supplemental O2: O2 Flow Rate (L/min): 2 L/min Physical Exam Physical Examination - General: Patient lying on left side - Skin: Large wound to perineum, extending back with packing in place. Ostomy bag in place and surgical scar well approximated. Has some brown liquid in the ostomy bag. - Head, Eyes, Ears, Nose, Throat: Swollen left eye improved - Respiratory: Lungs clear to bases. - Cardiovascular: Murmur appreciated, regular rate and rhythm, - Abdomen:Non-tender to palpation, donohue draining clear urine. Medications: Scheduled PRN cefepime, 2,000 mg, IntraVENous, q8h clindamycin, 600 mg, IntraVENous, q8h insulin lispro, 0-6 Units, SubCUTAneous, q6h And insulin lispro, 0-6 Units, SubCUTAneous, Nightly metroNIDAZOLE, 500 mg, IntraVENous, q8h sodium chloride 0.9%, 10 mL, IntraVENous, 2 times per day sodium hypochlorite, , Irrigation, BID vancomycin, 1,500 mg, IntraVENous, q12h PRN medications: acetaminophen, dextrose, dextrose, glucagon (rDNA), glucose, morphine sulfate OR morphine sulfate, naloxone, ondansetron ODT OR ondansetron, oxyCODONE OR oxyCODONE, potassium chloride CR OR potassium chloride CR OR potassium chloride CR OR potassium chloride OR potassium chloride OR potassium chloride OR potassium chloride, sodium chloride, sodium chloride 0.9% Continuous dextrose 5 % and sodium chloride 0.45 %, 100 mL/hr, Last Rate: 100 mL/hr (05/24/24 1209) Assessment Data: (CAT1) Reviewed 3 or more notes from different specialty or health system (each=1). (CAT1) Reviewed 3 or more labs/studies previously ordered by me not previously counted (each=1, panels count as 1). 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 Patient met sepsis criteria with tachycardia (120 bpm), hypotension (BP 94/49), tachypnea (RR 24), and leukocytosis (WBC 31). CT abdomen and pelvis showed heterogeneous prostate gland with ring-enhancing low-density foci, contiguous right perineal region inflammation, small abscesses, and extensive soft tissue stranding. Patient has undergone initial debridement and is currently hemodynamically stable. Cultures few S. Aureus, rare E coli, Many gram postive bacilli, moderate gram positive cocci in pairs, rare gram neg bacilli - Continue cefepime, clindamycin and Vancomycin - Antibiotics: Cefepime 05/21- Vancomycin 05/21 - Clindamycin 05/21 - Metronidazole 05/23 - - Repeat debridement on 05/23- with plans to go back to the OR on 05/26 - - Discussed with antibiotic stewardship to continue clindamycin until final surgery. - Monitor vital signs and sepsis criteria - Continue fluid resuscitation as needed - monitor for fluid overload - having dependent edema - in eye Itchy back Hydoxyzine prn Diabetic Ketoacidosis (DKA) with Uncontrolled Type 1 Diabetes Patient presents with mild DKA in the setting of uncontrolled type 1 diabetes. Initial anion gap was 14, now improved to 9 with fluid resuscitation. D5 infusion has been running. - Discontinue DKA lyte protocol - if become hypoglycemia put on D51/2NS - Blood glucose Q6 hours with sliding scale Electrolyte Abnormalities - pseudohyponatremia, hypokalemia, hypomagnesemia, and hypocalcemia. Patient has multiple electrolyte derangements including hyponatremia (Na 122), likely pseudohyponatremia, hypokalemia, hypomagnesemia, and hypocalcemia. These are likely multifactorial due to sepsis, DKA, and fluid shifts. - Monitor and replete electrolytes as needed - Reassess sodium levels with correction for hyperglycemia Acute Kidney Injury - resolved, back to 0.66 Patient presents with elevated BUN (132) and creatinine (1.35), indicative of acute kidney injury. This is likely pre-renal in nature due to sepsis and dehydration. - Continue fluid resuscitation - Monitor urine output - Trend BUN and creatinine Fluid Overload Patient has developed signs of fluid overload, including swollen left eye and peripheral edema, likely secondary to aggressive fluid resuscitation for sepsis and DKA management. - Reassess fluid balance - Consider diuresis if clinically indicated - Monitor for worsening edema or respiratory symptoms Urinary retention - Urology placed catheter during visit and will need to follow up outpatient Anemia Patient has normocytic anemia (Hgb 7.1, MCV 75.9) likely due to chronic disease and ongoing infection. - Monitor hemoglobin levels - Assess for signs of active bleeding - With plans to go to OR and last two days 7 and 7.1 - will transfuse 1 unit of pRBC Plan As a result of the above findings & factors, the following mgmt was pursued: - 05/22- plans as above. - 05/23- VS, labs reviewed, discussed care with antibiotic stewardship - will add metronidazole until all cultures back, continue clindamycin until after final surgical debridement, wound care, follow up cultures, OR today, discussed with surgery before and after debridement - plans to retake him back to the OR again on 05/26 based on surgery completed today. - 05/24- VS, labs reviewed, continue antibiotics, ostomy site intact, continue CLD with NPO at midnight. - 05/25 - VS, labs reviewed, potassium replenished, monitor ostomy out put, and one unit of pRBC may need to be ordered in AM consent was obtained and placed in chart incase they need it to prior to or. - am labs, replace lytes prn - PT/OT/CM/SW - delirium precautions: increase activity and limit nighttime disturbances - DVT prophylaxis: enoxaparin and encourage ambulation Complexity: Chronic illness with severe exacerbation, progression, or side effect of tx (HIGH). Risk: Admission to hospital-level care was considered or occurred (HIGH). Advance Directive: Full Code Anticipated Discharge - Date - - Location - SNF - Pending the following - post-surgical plans for DC Total time spent (which include face to face and non face to face encounters) : 42 minutes Toxic drug monitoring/narrow therapeutic index drug monitoring : # Drug name : NA # Route administered : NA # Method of monitoring : NA Extended Emergency Contact Information Primary Emergency Contact: JiaGeorges Mobile Relation: Sibling Secondary Emergency Contact: JiaPernell Mobile Relation: Brother Sandee Reeder MD Division of Hospitalist Medicine [facility] Images from the original note were not included. [facility] - Surgery [facility] Physicians Surgery Megan Mercado MD Surgical Progress Note PATIENT NAME: Miranda Montemayor Jia TODAY'S DATE: 05/24/2024 CC: incisional pain SUBJECTIVE: Pain controlled. (-) nausea/emesis. (-) fevers/chills. (-) flatus. (-) bowel movement. (-) chest pain/dyspnea. (+) ambulating. Good UOP OBJECTIVE: VITALS: BP 118/71 Pulse 92 Temp 36.2 C (97.1 F) (Temporal) Resp 18 Ht 5' (1.524 m) Wt 185 lb (83.9 kg) SpO2 99% BMI 36.13 kg/m INTAKE/OUTPUT: I/O last 3 completed shifts: In: 2145 (25.6 mL/kg) [I.V.:2045 (24.4 mL/kg); IV Piggyback:100] Out: 1250 (14.9 mL/kg) [Urine:1250 (0.4 mL/kg/hr)] Weight: 83.9 kg I/O this shift: In: 3090 [P.O.:1240; I.V.:1000; IV Piggyback:850] Out: 800 [Urine:800] REVIEW OF SYSTEMS: Pertinent positives and negatives as per interval history section PHYSICAL EXAM: Physical Exam Constitutional: General: He is not in acute distress. Appearance: He is not ill-appearing. HENT: Head: Normocephalic and atraumatic. Eyes: General: No scleral icterus. Conjunctiva/sclera: Conjunctivae normal. Cardiovascular: Rate and Rhythm: Normal rate and regular rhythm. Pulmonary: Effort: Pulmonary effort is normal. No respiratory distress. Abdominal: General: There is no distension. Tenderness: There is no abdominal tenderness. Comments: Ostomy pink, no gas or stool Musculoskeletal: General: No swelling or tenderness. Cervical back: Normal range of motion and neck supple. Skin: General: Skin is warm. Coloration: Skin is not jaundiced. Comments: Dressing changed and bedside, healthy wound bed Neurological: General: No focal deficit present. Mental Status: He is oriented to person, place, and time. Psychiatric: Mood and Affect: Mood normal. Behavior: Behavior normal. 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 urethral stricture status post Donohue catheter insertion 05/21 and laparoscopic diverting loop sigmoid colostomy 05/23 Persistent necrotic and purulent tissue on debridement yesterday, but significantly improved from 05/21, Plan for repeat debridement on Sunday Consult wound care for possible ostomy care and wound care assistance going forward Continue broad-spectrum IV antibiotics for Jhoan's gangrene, leukocytosis improved Anemia- multifactorial, present on admission with subsequent drift from resuscitation, transfuse PRN Clear liquid diet, monitor ostomy function Urethral stricture-catheter will remain in place until after discharge for outpatient evaluation with urology Diabetes with DKA- improving with current medical management Discussed with brother Pernell This case had moderate medical decision making and case complexity with 35 minute total care time including chart review, care coordination and face to face encounter. The patient was seen and examined independently and relevant data reviewed by myself. A full chart review was performed. I personally interviewed the patient and performed an individual physical examination. In addition, I discussed the patient's condition and treatment options with them. I have also reviewed and agree with the past medical, family and social history and care plan unless otherwise noted. All of the patient's questions were answered. Megan Mercado MD General Surgery Pager #[phone] Perfect Serve: Megan Mercado 2:10 PM 05/24/2024 Hospitalist Progress Note 05/24/2024 Subjective: Admit Date: 05/21/2024 PCP: No primary care provider on file. Room#: B2-258/B2-258 A BRIEF HOSPITAL COURSE: Mr. Ro presented to the Emergency Department post-debridement with a right buttocks and perineal wound that had been present for several weeks. He was found to have severe sepsis. On arrival, he was tachycardic with a heart rate of 120 bpm, meeting sepsis criteria with blood pressure 94/49 and respiratory rate 24. He was started on cefepime. Laboratory, Imaging, and Diagnostic Test Results - WBC: 31 - Hemoglobin: 11.9 - MCV: 75.9 - Sodium: 122 - Chloride: 78 - CO2: 10 - BUN: 132 - Creatinine: 1.35 - LFTs: 180 - ALT and AST: normal - Anion gap: 9 (previously 14) CT abdomen and pelvis: - Heterogeneous prostate gland with ring-enhancing low-density foci - Contiguous right perineal region suspicious for inflammation - Small abscesses - Extensive soft tissue stranding and edema in right gluteal and perineal subcutaneous tissues - Urinary bladder distension with mild inflammatory wall thickening - Slight intraluminal gas bubbles suspicious for possible fistula formation - Splenomegaly - Right renal cyst - Mild left renal calcification with nephrolithiasis The patient has uncontrolled insulin-dependent diabetes and was experiencing mild diabetic ketoacidosis. He also presented with hyponatremia, normocytic anemia of chronic disease, hypokalemia, hypomagnesemia, and hypocalcemia. Patient taken back to the OR on 05/23 for further debridement, and will need repeat debridement on 05/26. Metronidazole started on top of clindamycin Interval History: Hard of hearing - does have difficulties hearing but wtih some yelling able to determine how he is doing. State has some pain to buttock but it feels better then yesterday, Able to tolerate clear liquid diet, Denies any fever, headache, dizziness, chest pain and SOB No overnight issues. Case and plan discussed with patient and bedside nurse. All questions answered. Adult diet Clear liquid 24HR INTAKE/OUTPUT: Intake/Output Summary (Last 24 hours) at 05/24/2024 0922 Last data filed at 05/23/2024 1633 Gross per 24 hour Intake 1600 ml Output 450 ml Net 1150 ml Past Medical History: Past Medical History: Diagnosis Date Chavarria's palsy Deaf Diabetes mellitus (HCC) Gout Hypertension Obesity Scoliosis Speech impairment LABS: CBC: Recent Labs 05/22/24 1149 05/23/24 0038 05/24/24 0041 WBC 15.2* 6.4 5.2 RBC 3.06* 2.92* 2.70* HGB 7.9* 7.6* 7.0* HCT 23.6* 22.9* 21.9* MCV 77.1 78.4 81.1 RDW 13.5 13.7 14.1 PLT 199 137* 117* BMP: Recent Labs 05/22/24 0722 05/23/24 0038 05/24/24 0041 NA 129* 130* 130* K 3.4* 3.0* 4.0 CL 99 100 103 CO2 21* 22 19* BUN 22* 15 15 CREATININE 0.70* 0.55* 0.66* GLUCOSE 162* 194* 363* CALCIUM 6.8* 6.9* 6.8* ANIONGAP 9 8 8 LIVER PROFILE: Recent Labs 05/21/24 1617 AST 21 ALT <6 BILITOT 0.5 ALKPHOS 180* PROT 7.5 PT/INR: Recent Labs 05/23/24 0038 PROTIME 13.7* INR 1.2* CARDIAC ENZYMES: No results for input(s): "TROPONINI" in the last 72 hours. Procalcitonin: Lab Results Component Value Date PROCAL 1.48 (H) 05/21/2024 COVID-19 PCR: No results for input(s): "COVID19" in the last 72 hours. Objective: Vitals: BP 123/75 Pulse 89 Temp 36.4 C (97.5 F) (Temporal) Resp 18 Ht 5' (1.524 m) Wt 185 lb (83.9 kg) SpO2 100% BMI 36.13 kg/m Pulse Ox: SpO2 Av.4 % Min: 94 % Max: 100 % Supplemental O2: O2 Flow Rate (L/min): 2 L/min Physical Exam Physical Examination - General: Patient lying on left side - Skin: Large wound to perineum, extending back with packing in place. Ostomy bag in place and surgical scar well approximated. - Head, Eyes, Ears, Nose, Throat: Swollen left eye improved - Respiratory: Lungs clear to bases. - Cardiovascular: Murmur appreciated, regular rate and rhythm, - Abdomen:Non-tender to palpation, donohue draining clear urine. Medications: Scheduled PRN cefepime, 2,000 mg, IntraVENous, q8h clindamycin, 600 mg, IntraVENous, q8h insulin lispro, 0-6 Units, SubCUTAneous, q6h And insulin lispro, 0-6 Units, SubCUTAneous, Nightly metroNIDAZOLE, 500 mg, IntraVENous, q8h sodium chloride 0.9%, 10 mL, IntraVENous, 2 times per day sodium hypochlorite, , Irrigation, BID vancomycin, 1,500 mg, IntraVENous, q12h PRN medications: acetaminophen, dextrose, dextrose, glucagon (rDNA), glucose, morphine sulfate OR morphine sulfate, naloxone, ondansetron ODT OR ondansetron, oxyCODONE OR oxyCODONE, potassium chloride CR OR potassium chloride CR OR potassium chloride CR OR potassium chloride OR potassium chloride OR potassium chloride OR potassium chloride, sodium chloride, sodium chloride 0.9% Continuous dextrose 5 % and sodium chloride 0.45 %, 100 mL/hr, Last Rate: 100 mL/hr (05/23/242140) Assessment Data: (CAT1) Reviewed 3 or more notes from different specialty or health system (each=1). (CAT1) Reviewed 3 or more labs/studies previously ordered by me not previously counted (each=1, panels count as 1). 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 Patient met sepsis criteria with tachycardia (120 bpm), hypotension (BP 94/49), tachypnea (RR 24), and leukocytosis (WBC 31). CT abdomen and pelvis showed heterogeneous prostate gland with ring-enhancing low-density foci, contiguous right perineal region inflammation, small abscesses, and extensive soft tissue stranding. Patient has undergone initial debridement and is currently hemodynamically stable. Cultures few S. Aureus, rare E coli, Many gram postive bacilli, moderate gram positive cocci in pairs, rare gram neg bacilli - Continue cefepime, clindamycin and Vancomycin - Antibiotics: Cefepime 05/21- Vancomycin 05/21 - Clindamycin 05/21 - Metronidazole 05/23 - - Repeat debridement on 05/23- with plans to go back to the OR on 05/26 - - Discussed with antibiotic stewardship to continue clindamycin until final surgery. - Monitor vital signs and sepsis criteria - Continue fluid resuscitation as needed - monitor for fluid overload - having dependent edema - in eye Diabetic Ketoacidosis (DKA) with Uncontrolled Type 1 Diabetes Patient presents with mild DKA in the setting of uncontrolled type 1 diabetes. Initial anion gap was 14, now improved to 9 with fluid resuscitation. D5 infusion has been running. - Discontinue DKA lyte protocol - if become hypoglycemia put on D51/2NS - Blood glucose Q6 hours with sliding scale Electrolyte Abnormalities Patient has multiple electrolyte derangements including hyponatremia (Na 122), likely pseudohyponatremia, hypokalemia, hypomagnesemia, and hypocalcemia. These are likely multifactorial due to sepsis, DKA, and fluid shifts. - Monitor and replete electrolytes as needed - Reassess sodium levels with correction for hyperglycemia Acute Kidney Injury Patient presents with elevated BUN (132) and creatinine (1.35), indicative of acute kidney injury. This is likely pre-renal in nature due to sepsis and dehydration. - Continue fluid resuscitation - Monitor urine output - Trend BUN and creatinine Fluid Overload Patient has developed signs of fluid overload, including swollen left eye and peripheral edema, likely secondary to aggressive fluid resuscitation for sepsis and DKA management. - Reassess fluid balance - Consider diuresis if clinically indicated - Monitor for worsening edema or respiratory symptoms Urinary retention - Urology placed catheter during visit and will need to follow up outpatient Anemia Patient has normocytic anemia (Hgb 11.9, MCV 75.9) likely due to chronic disease and ongoing infection. - Monitor hemoglobin levels - Assess for signs of active bleeding Plan As a result of the above findings & factors, the following mgmt was pursued: - 05/22- plans as above. - 05/23- VS, labs reviewed, discussed care with antibiotic stewardship - will add metronidazole until all cultures back, continue clindamycin until after final surgical debridement, wound care, follow up cultures, OR today, discussed with surgery before and after debridement - plans to retake him back to the OR again on 05/26 based on surgery completed today. - 05/24- VS, labs reviewed, continue antibiotics, ostomy site intact, continue CLD with NPO at midnight. - am labs, replace lytes prn - PT/OT/CM/SW - delirium precautions: increase activity and limit nighttime disturbances - DVT prophylaxis: enoxaparin and encourage ambulation Complexity: Chronic illness with severe exacerbation, progression, or side effect of tx (HIGH). Risk: Admission to hospital-level care was considered or occurred (HIGH). Advance Directive: Full Code Anticipated Discharge - Date - - Location - SNF - Pending the following - post-surgical plans for DC Total time spent (which include face to face and non face to face encounters) : 42 minutes Toxic drug monitoring/narrow therapeutic index drug monitoring : # Drug name : NA # Route administered : NA # Method of monitoring : NA Extended Emergency Contact Information Primary Emergency Contact: JiaGeorges Mobile Relation: Sibling Secondary Emergency Contact: RoPernell luz Mobile Relation: Brother Sandee Reeder MD Division of Hospitalist Medicine [facility] Surgery Post Op Progress Note PATIENT NAME: Miranda Ro TODAY'S DATE: 05/23/2024 SUBJECTIVE: General Surgery follow up on Jhoan's wound. Mild pain perineum. No nausea or emesis. No acute events overnight. Pain controlled YES/NO: Yes Other Complaints YES/NO: No Flatus/BM/or Ostomy function YES/NO: Yes OBJECTIVE: VITALS: BP 122/76 Pulse (!) 115 Temp 36.7 C (98.1 F) (Temporal) Resp 16 Ht 5' (1.524 m) Wt 185 lb (83.9 kg) SpO2 99% BMI 36.13 kg/m INTAKE/OUTPUT: I/O last 3 completed shifts: In: 5937.5 (70.8 mL/kg) [P.O.:350; I.V.:3087.5 (36.8 mL/kg); IV Piggyback:2500] Out: 2700 (32.2 mL/kg) [Urine:2600 (0.9 mL/kg/hr); Blood:100] Weight: 83.9 kg No intake/output data recorded. CONSTITUTIONAL: awake and alert ABDOMEN: soft, nontender, and nondistended INCISION: clean. Dressing in place Data: CBC: Recent Labs 05/21/24 2236 05/22/24 0215 05/22/24 0722 05/22/24 1149 05/23/24 0038 WBC 8.0 -- -- 15.2* 6.4 HGB 9.0* < > 7.4* 7.9* 7.6* HCT 27.4* -- -- 23.6* 22.9* PLT 195 -- -- 199 137* < > = values in this interval not displayed. BMP: Recent Labs 05/22/24 0408 05/22/24 0722 05/23/24 0038 NA 129* 129* 130* K 3.2* 3.4* 3.0* CL 95* 99 100 CO2 20* 21* 22 BUN 27* 22* 15 CREATININE 0.81 0.70* 0.55* GLUCOSE 104* 162* 194* Hepatic: Recent Labs 05/21/24 1617 AST 21 ALT <6 BILITOT 0.5 ALKPHOS 180* ASSESSMENT AND PLAN: Mr. Ro is a 44 y/o M who is s/p debridement of Jhoan's gangrene POD#2 - NPO - OR today for second look debridement, flex sig, and probable diverting colostomy laparoscopic possible open - Continue IV atbx - Donohue in place KALIA Peña CNP Cosigned by Megan Mercado MD at 05/23/2024 5:40 PM EDT Hospitalist Progress Note 05/23/2024 Subjective: Admit Date: 05/21/2024 PCP: No primary care provider on file. Room#: OR/NONE BRIEF HOSPITAL COURSE: Mr. Ro presented to the Emergency Department post-debridement with a right buttocks and perineal wound that had been present for several weeks. He was found to have severe sepsis. On arrival, he was tachycardic with a heart rate of 120 bpm, meeting sepsis criteria with blood pressure 94/49 and respiratory rate 24. He was started on cefepime. Laboratory, Imaging, and Diagnostic Test Results - WBC: 31 - Hemoglobin: 11.9 - MCV: 75.9 - Sodium: 122 - Chloride: 78 - CO2: 10 - BUN: 132 - Creatinine: 1.35 - LFTs: 180 - ALT and AST: normal - Anion gap: 9 (previously 14) CT abdomen and pelvis: - Heterogeneous prostate gland with ring-enhancing low-density foci - Contiguous right perineal region suspicious for inflammation - Small abscesses - Extensive soft tissue stranding and edema in right gluteal and perineal subcutaneous tissues - Urinary bladder distension with mild inflammatory wall thickening - Slight intraluminal gas bubbles suspicious for possible fistula formation - Splenomegaly - Right renal cyst - Mild left renal calcification with nephrolithiasis The patient has uncontrolled insulin-dependent diabetes and was experiencing mild diabetic ketoacidosis. He also presented with hyponatremia, normocytic anemia of chronic disease, hypokalemia, hypomagnesemia, and hypocalcemia. Patient taken back to the OR on 05/23 for further debridement, and will need repeat debridement on 05/26. Metronidazole started on top of clindamycin Interval History: Hard of hearing - does have difficulties hearing but wtih some yelling able to determine - has pain in buttock region and no other complaints on ROS. No overnight issues. Case and plan discussed with patient and bedside nurse. All questions answered. Adult diet Clear liquid 24HR INTAKE/OUTPUT: Intake/Output Summary (Last 24 hours) at 05/23/2024 1643 Last data filed at 05/23/2024 1633 Gross per 24 hour Intake 2975 ml Output 1250 ml Net 1725 ml Past Medical History: Past Medical History: Diagnosis Date Chavarria's palsy Deaf Diabetes mellitus (HCC) Gout Hypertension Obesity Scoliosis Speech impairment LABS: CBC: Recent Labs 05/21/24 2236 05/22/24 0215 05/22/24 0722 05/22/24 1149 05/23/24 0038 WBC 8.0 -- -- 15.2* 6.4 RBC 3.46* -- -- 3.06* 2.92* HGB 9.0* < > 7.4* 7.9* 7.6* HCT 27.4* -- -- 23.6* 22.9* MCV 79.2 -- -- 77.1 78.4 RDW 13.4 -- -- 13.5 13.7 PLT 195 -- -- 199 137* < > = values in this interval not displayed. BMP: Recent Labs 05/22/24 0408 05/22/24 0722 05/23/24 0038 NA 129* 129* 130* K 3.2* 3.4* 3.0* CL 95* 99 100 CO2 20* 21* 22 BUN 27* 22* 15 CREATININE 0.81 0.70* 0.55* GLUCOSE 104* 162* 194* CALCIUM 7.0* 6.8* 6.9* ANIONGAP 14* 9 8 LIVER PROFILE: Recent Labs 05/21/24 1617 AST 21 ALT <6 BILITOT 0.5 ALKPHOS 180* PROT 7.5 PT/INR: Recent Labs 05/23/24 0038 PROTIME 13.7* INR 1.2* CARDIAC ENZYMES: No results for input(s): "TROPONINI" in the last 72 hours. Procalcitonin: Lab Results Component Value Date PROCAL 1.48 (H) 05/21/2024 COVID-19 PCR: No results for input(s): "COVID19" in the last 72 hours. Objective: Vitals: BP 122/76 Pulse (!) 115 Temp 36.7 C (98.1 F) (Temporal) Resp 16 Ht 5' (1.524 m) Wt 185 lb (83.9 kg) SpO2 99% BMI 36.13 kg/m Pulse Ox: SpO2 Av.3 % Min: 98 % Max: 99 % Supplemental O2: O2 Flow Rate (L/min): 2 L/min Physical Exam Physical Examination - General: Patient lying on left side - Skin: Wound examined, significant debridement with serosanguineous drainage. Peripheral edema noted, non-pitting. - Head, Eyes, Ears, Nose, Throat: Swollen left eye improved - Respiratory: Lungs clear to bases. - Cardiovascular: Murmur appreciated, regular rate and rhythm, - Abdomen:Non-tender to palpation, donohue draining clear urine. Medications: Scheduled PRN [Transfer Hold] cefepime, 2,000 mg, IntraVENous, q8h [Transfer Hold] clindamycin, 600 mg, IntraVENous, q8h [Transfer Hold] insulin lispro, 0-6 Units, SubCUTAneous, q6h And [Transfer Hold] insulin lispro, 0-6 Units, SubCUTAneous, Nightly metroNIDAZOLE, 500 mg, IntraVENous, q8h [Transfer Hold] sodium chloride 0.9%, 10 mL, IntraVENous, 2 times per day sodium chloride 0.9%, 10 mL, IntraVENous, 2 times per day [Transfer Hold] sodium hypochlorite, , Irrigation, BID [Transfer Hold] vancomycin, 1,500 mg, IntraVENous, q12h PRN medications: [Transfer Hold] acetaminophen, [Transfer Hold] dextrose, [Transfer Hold] dextrose, [Transfer Hold] glucagon (rDNA), [Transfer Hold] glucose, [Transfer Hold] morphine sulfate OR [Transfer Hold] morphine sulfate, [Transfer Hold] naloxone, [Transfer Hold] ondansetron ODT OR [Transfer Hold] ondansetron, [Transfer Hold] oxyCODONE OR [Transfer Hold] oxyCODONE, [Transfer Hold] potassium chloride CR OR [Transfer Hold] potassium chloride CR OR [Transfer Hold] potassium chloride CR OR [Transfer Hold] potassium chloride OR [Transfer Hold] potassium chloride OR [Transfer Hold] potassium chloride OR [Transfer Hold] potassium chloride, [Transfer Hold] sodium chloride, sodium chloride, [Transfer Hold] sodium chloride 0.9%, sodium chloride 0.9% Continuous dextrose 5 % and sodium chloride 0.45 %, 100 mL/hr, Last Rate: 100 mL/hr (05/23/24 0556) Assessment Data: (CAT1) Reviewed 3 or more notes from different specialty or health system (each=1). (CAT1) Reviewed 3 or more labs/studies previously ordered by me not previously counted (each=1, panels count as 1). (LOW: 2x CAT1 or independent historian MOD: 3x CAT1 or 1x CAT3 EXTENSIVE: 3x CAT1 and 1x CAT3) Acute, acute on chronic, unstable/uncontrolled chronic problems/diagnoses: Severe Sepsis 44-year-old male with uncontrolled insulin-dependent diabetes presented with severe sepsis secondary to right buttocks and perineal wound infection. Patient met sepsis criteria with tachycardia (120 bpm), hypotension (BP 94/49), tachypnea (RR 24), and leukocytosis (WBC 31). CT abdomen and pelvis showed heterogeneous prostate gland with ring-enhancing low-density foci, contiguous right perineal region inflammation, small abscesses, and extensive soft tissue stranding. Patient has undergone initial debridement and is currently hemodynamically stable. Cultures few S. Aureus, rare E coli, Many gram postive bacilli, moderate gram positive cocci in pairs, rare gram neg bacilli - Continue cefepime, clindamycin and Vancomycin - Antibiotics: Cefepime 05/21- Vancomycin 05/21 - Clindamycin 05/21 - Metronidazole 05/23 - - Repeat debridement on 05/23- with plans to go back to the OR on 05/26 - - Discussed with antibiotic stewardship to continue clindamycin until final surgery. - Monitor vital signs and sepsis criteria - Continue fluid resuscitation as needed - monitor for fluid overload - having dependent edema - in eye Diabetic Ketoacidosis (DKA) with Uncontrolled Type 1 Diabetes Patient presents with mild DKA in the setting of uncontrolled type 1 diabetes. Initial anion gap was 14, now improved to 9 with fluid resuscitation. D5 infusion has been running. - Discontinue DKA lyte protocol - if become hypoglycemia put on D51/2NS - Blood glucose Q6 hours with sliding scale Electrolyte Abnormalities Patient has multiple electrolyte derangements including hyponatremia (Na 122), likely pseudohyponatremia, hypokalemia, hypomagnesemia, and hypocalcemia. These are likely multifactorial due to sepsis, DKA, and fluid shifts. - Monitor and replete electrolytes as needed - Reassess sodium levels with correction for hyperglycemia Acute Kidney Injury Patient presents with elevated BUN (132) and creatinine (1.35), indicative of acute kidney injury. This is likely pre-renal in nature due to sepsis and dehydration. - Continue fluid resuscitation - Monitor urine output - Trend BUN and creatinine Fluid Overload Patient has developed signs of fluid overload, including swollen left eye and peripheral edema, likely secondary to aggressive fluid resuscitation for sepsis and DKA management. - Reassess fluid balance - Consider diuresis if clinically indicated - Monitor for worsening edema or respiratory symptoms Urinary retention - Urology placed catheter during visit and will need to follow up outpatient Anemia Patient has normocytic anemia (Hgb 11.9, MCV 75.9) likely due to chronic disease and ongoing infection. - Monitor hemoglobin levels - Assess for signs of active bleeding Plan As a result of the above findings & factors, the following mgmt was pursued: - 05/22- plans as above. - 05/23- VS, labs reviewed, discussed care with antibiotic stewardship - will add metronidazole until all cultures back, continue clindamycin until after final surgical debridement, wound care, follow up cultures, OR today, discussed with surgery before and after debridement - plans to retake him back to the OR again on 05/26 based on surgery completed today. - am labs, replace lytes prn - PT/OT/CM/SW - delirium precautions: increase activity and limit nighttime disturbances - DVT prophylaxis: enoxaparin and encourage ambulation Complexity: Chronic illness with severe exacerbation, progression, or side effect of tx (HIGH). Risk: Admission to hospital-level care was considered or occurred (HIGH). Advance Directive: Full Code Anticipated Discharge - Date - 05/25 - Location - SNF - Pending the following - post-surgical plans for DC Total time spent (which include face to face and non face to face encounters) : 52 minutes Toxic drug monitoring/narrow therapeutic index drug monitoring : # Drug name : NA # Route administered : NA # Method of monitoring : NA Extended Emergency Contact Information Primary Emergency Contact: Georges Ro Mobile Relation: Sibling Secondary Emergency Contact: Pernell Ro Mobile Relation: Brother Sandee Reeder MD Division of Hospitalist Medicine Acute care [facility] Images from the original note were not included. PHYSICAL THERAPY [facility] Initial Evaluation Name/MRN: Miranda Sim Ro ([id number]) Evaluation Date: 05/22/2024 Date of : 1980 Admission Date: 05/21/2024 3:11 PM Age: 44 y.o. Room/Bed: B2-258/B2-258 A Discharge Recommendation: Jail Facility Other: TBD at next level of care Assessment IMPRESSION: Pt presents with decreased functional mobility, decreased strength, decreased safety awareness, decreased endurance and impaired balance. Pt has decreased standing balance, poor activity tolerance, decreased safety awareness and weakness requiring physical assist of 1 person in order to safely complete minimal OOB mobility placing him at a high risk of falling. Pt could benefit from skilled PT in order to address his decreased functional mobility, strength, balance and safety. Pt has medical history as listed below that that contributes to his clinical presentation, including MRDD. At baseline patient is functionally independent with no device. Currently patient is unsafe to return home secondary to his increased need for assist and fall risks with mobility. 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 Underwent: 1) Debridement of skin, subcutaneous tissue muscle and fascia of the right buttock and perineum for Jhoan's gangrene 2) Cystoscopy and Donohue catheter placement with urology, Dr. Bal on 05/21/2024, plan for return to OR 05/23/24. Prognosis: good Performance Deficits /Impairments: Increased Pain, Decreased Functional Mobility, Decreased ADL status, Decreased Strength, Decreased Safety Awareness, Decreased Endurance, and Decreased Balance Decision Making: Medium Complexity Subjective Patient pleasant and agreeable to therapy session this date. Increased lethargy per brother this date. Per RN patient okay for therapy. Observation: O2 intact, PIV intact, dressing to buttocks clean/dry/intact, donohue intact Pain: [place] Pain Ratin = Hurts little more Pain Location: buttock Past Medical History: Past Medical History: Diagnosis Date Chavarria's palsy Deaf Diabetes mellitus (HCC) Gout Hypertension Obesity Scoliosis Speech impairment Past Surgical History: Past Surgical History: Procedure Laterality Date APPENDECTOMY PELVIS DEBRIDEMENT 05/21/2024 jhoan's gangrene UPPER GASTROINTESTINAL ENDOSCOPY 06/18/2020 Dr lazar/Gayathri Admission Diagnosis: Patient Active Problem List Diagnosis Date Noted Sepsis with acute renal failure and septic shock, due to unspecified organism, unspecified acute renal failure type (HCC) 05/21/2024 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 05/21/2024 Cellulitis of buttock 05/21/2024 Wound of left buttock 05/21/2024 Class 3 severe obesity due to excess calories without serious comorbidity with body mass index (BMI) of 40.0 to 44.9 in adult ([facility]) 09/06/2020 Helicobacter pylori gastritis 09/06/2020 Type 2 diabetes mellitus with hyperglycemia ([facility]) 09/06/2020 Hearing impaired 09/06/2020 Essential hypertension 09/06/2020 Noncompliance with diabetes treatment 06/18/2020 Unable to care for self 06/18/2020 Hypertriglyceridemia 06/18/2020 Scoliosis 12/03/2014 Speech impairment 12/03/2014 Gout 12/03/2014 Medical Precautions: No active isolations Proper PPE donned/doffed in accordance with facility standards. Fall Risk: Jones Fall Risk Score: 35 (Low Risk) Jones Fall Risk Score: 35 (Medium Risk) Precautions/Restrictions: N/A Family/Caregiver Present: sibling(s) Overall Cognitive Status: Exceptions - Arousal/alertness: delayed responses to stimuli - Following commands: follows one step commands with increased time and follows one step commands with repetition - Attention span: attends with cues to redirect - Memory: decreased recall of recent events and decreased short term memory - Safety judgement: decreased awareness of need for assistance and decreased awareness of need for safety - Problem solving: assistance required to generate solutions, assistance required to implement solutions, assistance required to identify errors made, assistance required to correct errors made, and decreased awareness of errors - Insights: decreased awareness of deficits - Initiation: requires cues for some - Sequencing: requires cues for some - h/o MRDD, however brother reports current cognitive state his due to post op medication Overall Orientation Status: Oriented to Place and Oriented to Person Vision: No Visual Deficits Hearing: impaired L ear per brother Social/Functional History Patient admitted from home. Lives With: Alone Type of Home: apartment - [address] community Home Layout: Single Level Home Home Access: Elevator - brother reports he does complete steps for exercise Bathroom Shower/Tub: Tub/Shower Combo Toilet: Standard Home Equipment: none Homemaking Responsibilities: Independent Receives Help From: Family Active Metal Can Inspector: No Prior Level of Function Prior Level of ADL Function: Independent Prior Level of Mobility: Independent; Device: None Prior Level of Transfers: Independent Objective Lower Extremity Assessment AROM: WFL Strength: Pt demonstrates appropriate B LE and quad strength in order to safely participate in OOB mobility, generalized weakness noted Bed Mobility: Supine to sit: Min Assist Sit to supine: SBA Scooting: SBA Denies dizziness with positional changes. Pt completed supine to standing by going prone initially and propping EOB into standing to avoid sitting on buttocks due to pain. Pt returned to supine in similar fashion. Safety concerns with lines at this time and ligth assist to complete. Transfers Sit to stand: Min Assist, prone to standing technique by propping EOB into standing with Henrik to complete and B foot block for safety. Stand to sit: Min Assist, similar technique to required to supine to avoid sitting due to pain Denies dizziness on initial stance. Use of bed rail for stability in standing. Ambulation NT due to safety concerns at this time with patients lethargy and fatigue. Outcome Measures AM-PAC How much HELP from another person do you currently need Turning from your back to your side while in a flat bed without using bedrails?: A Little Moving from lying on your back to sitting on the side of a flat bed without using bedrails?: A Lot Moving to and from a bed to a chair (including a wheelchair)?: A Little Standing up from a chair using your arms (wheelchair or bedside chair)?: A Little Walking in a hospital room?: A Lot AM-PAC Inpatient Mobility Raw Score (No Stairs) : 13 [facility] Score: Static standing (1 or more minutes) Plan Pt would benefit from skilled acute PT services to address Strengthening, ROM, Gait Training, Balance Training, Self-Care/ADL Training, Functional Mobility Training, Endurance Training, Safety Education and Training, Pain Management, Equipment Evaluation/Education, Home Management Training, and Patient/Caregiver Training. Frequency: 7 visits Barriers: Pain, Decreased endurance, and Cognitive deficit Safety/Education Safety Safety Devices in place: All fall risk precautions in place, call light within reach, left in bed, bed alarm in place, gait belt, patient at risk for falls, and nurse notified Restraints: N/A Education Education Given To: patient and brother Education Provided: PT Role, PT Goals, Plan of Care, Transfer Training, Family Education, Fall Prevention Education, Discharge Recommendations, and Benefits of Increasing Activity Education Method: Verbal, Demonstration, and Teach Back Barriers to Learning: Cognition, Hearing Education Outcome: Verbalized Understanding, Demonstrated Understanding, and Continued Education Needed Goals Patient Stated Goal: Patient unable to participate in goal setting at this time. Encounter Problems Encounter Problems (Active) Balance Patient will maintain dynamic standing balance for 5 minutes with modified independence in order to demonstrate decreased risk of falling. Start: 05/22/24 Expected End: 05/29/24 Exercise Patient will complete lower extremity exercises for 1-2 sets / 10 reps in order to improve strength and activity tolerance for mobility. Start: 05/22/24 Expected End: 05/29/24 Mobility Patient will ambulate 100 feet with modified independence and least restrictive device in order to improve safety and independence with mobility. Start: 05/22/24 Expected End: 05/29/24 Transfers Patient will perform bed mobility with modified independence in order to improve independence and prepare for out of bed mobility. Start: 05/22/24 Expected End: 05/29/24 Patient will complete functional transfers with least restrictive device with modified independence in order to prepare for ambulation. Start: 05/22/24 Expected End: 05/29/24 Therapy Time Individual Co-Treatment Co-Evaluation Time In 1348 Time Out 1408 Minutes 20 Rajwinder Velazquez PT Patient's Physical Therapy Plan of Care supervision is transferred to a [facility] Services Physical Therapist. Goals and/or treatment plan was established in collaboration with patient/family/other representatives. Images from the original note were not included. Hospitalist Progress Note 05/22/2024 Subjective: Admit Date: 05/21/2024 PCP: No primary care provider on file. Room#: B2258/B2258 A BRIEF HOSPITAL COURSE: Mr. Ro presented to the Emergency Department post-debridement with a right buttocks and perineal wound that had been present for several weeks. He was found to have severe sepsis. On arrival, he was tachycardic with a heart rate of 120 bpm, meeting sepsis criteria with blood pressure 94/49 and respiratory rate 24. He was started on cefepime. Laboratory, Imaging, and Diagnostic Test Results - WBC: 31 - Hemoglobin: 11.9 - MCV: 75.9 - Sodium: 122 - Chloride: 78 - CO2: 10 - BUN: 132 - Creatinine: 1.35 - LFTs: 180 - ALT and AST: normal - Anion gap: 9 (previously 14) CT abdomen and pelvis: - Heterogeneous prostate gland with ring-enhancing low-density foci - Contiguous right perineal region suspicious for inflammation - Small abscesses - Extensive soft tissue stranding and edema in right gluteal and perineal subcutaneous tissues - Urinary bladder distension with mild inflammatory wall thickening - Slight intraluminal gas bubbles suspicious for possible fistula formation - Splenomegaly - Right renal cyst - Mild left renal calcification with nephrolithiasis The patient has uncontrolled insulin-dependent diabetes and was experiencing mild diabetic ketoacidosis. He also presented with hyponatremia, normocytic anemia of chronic disease, hypokalemia, hypomagnesemia, and hypocalcemia. Interval History: Hard of hearing - denies any pain or discomfort - lays on his stomach as it hurts to lay on his back or side. No fever or chills. No other complaints expressed. No overnight issues. Case and plan discussed with patient and bedside nurse. All questions answered. NPO diet with enteral medications NPO diet with enteral medications 24HR INTAKE/OUTPUT: Intake/Output Summary (Last 24 hours) at 05/22/2024 1318 Last data filed at 05/22/2024 0909 Gross per 24 hour Intake 5611.5 ml Output 1000 ml Net 4611.5 ml Past Medical History: Past Medical History: Diagnosis Date Chavarria's palsy Deaf Diabetes mellitus (HCC) Gout Hypertension Obesity Scoliosis Speech impairment LABS: CBC: Recent Labs 05/21/24 1617 05/21/24 2226 05/21/24 2236 05/22/24 0215 05/22/24 0408 05/22/24 0722 05/22/24 1149 WBC 31.7* -- 8.0 -- -- -- 15.2* RBC 4.56 -- 3.46* -- -- -- 3.06* HGB 11.9* < > 9.0* < > 8.0* 7.4* 7.9* HCT 34.6* -- 27.4* -- -- -- 23.6* MCV 75.9* -- 79.2 -- -- -- 77.1 RDW 13.5 -- 13.4 -- -- -- 13.5 PLT 390 -- 195 -- -- -- 199 < > = values in this interval not displayed. BMP: Recent Labs 05/22/24 0026 05/22/24 0408 05/22/24 0722 NA 130* 129* 129* K 3.1* 3.2* 3.4* CL 94* 95* 99 CO2 18* 20* 21* BUN 29* 27* 22* CREATININE 0.92 0.81 0.70* GLUCOSE 146* 104* 162* CALCIUM 7.0* 7.0* 6.8* ANIONGAP 18* 14* 9 LIVER PROFILE: Recent Labs 05/21/24 1617 AST 21 ALT <6 BILITOT 0.5 ALKPHOS 180* PROT 7.5 PT/INR: No results for input(s): "PROTIME", "INR" in the last 72 hours. CARDIAC ENZYMES: No results for input(s): "TROPONINI" in the last 72 hours. Procalcitonin: Lab Results Component Value Date PROCAL 1.48 (H) 05/21/2024 COVID-19 PCR: No results for input(s): "COVID19" in the last 72 hours. Objective: Vitals: BP 115/66 (BP Location: Right leg, Patient Position: Lying) Pulse 117 Temp 36.6 C (97.9 F) (Temporal) Resp 18 Ht 5' (1.524 m) Wt 185 lb (83.9 kg) SpO2 99% BMI 36.13 kg/m Pulse Ox: SpO2 Av.7 % Min: 92 % Max: 100 % Supplemental O2: O2 Flow Rate (L/min): 3 L/min Physical Exam Physical Examination - General: Patient lying face down in bed. - Skin: Wound examined, significant debridement with serosanguineous drainage. Peripheral edema noted, non-pitting. - Head, Eyes, Ears, Nose, Throat: Swollen left eye. - Respiratory: Lungs clear to bases. - cardiovascular: Murmur appreciated, regular rate and rhythm, - Abdomen: Often tender. Medications: Scheduled PRN cefepime, 2,000 mg, IntraVENous, q8h clindamycin, 600 mg, IntraVENous, q8h enoxaparin, 40 mg, SubCUTAneous, Daily insulin lispro, 0-6 Units, SubCUTAneous, q6h And insulin lispro, 0-6 Units, SubCUTAneous, Nightly sodium chloride 0.9%, 10 mL, IntraVENous, 2 times per day sodium hypochlorite, , Irrigation, BID vancomycin, 1,500 mg, IntraVENous, q12h PRN medications: acetaminophen, dextrose, dextrose, glucagon (rDNA), glucose, morphine sulfate OR morphine sulfate, naloxone, ondansetron ODT OR ondansetron, oxyCODONE OR oxyCODONE, potassium chloride CR OR potassium chloride CR OR potassium chloride CR OR potassium chloride OR potassium chloride OR potassium chloride OR potassium chloride, sodium chloride, sodium chloride 0.9% Continuous dextrose 5 % and sodium chloride 0.45 %, 100 mL/hr, Last Rate: 100 mL/hr (05/22/24 1251) Assessment Data: (CAT1) Reviewed 3 or more notes from different specialty or health system (each=1). (CAT1) Reviewed 3 or more labs/studies previously ordered by me not previously counted (each=1, panels count as 1). (LOW: 2x CAT1 or independent historian MOD: 3x CAT1 or 1x CAT3 EXTENSIVE: 3x CAT1 and 1x CAT3) Acute, acute on chronic, unstable/uncontrolled chronic problems/diagnoses: Severe Sepsis 44-year-old male with uncontrolled insulin-dependent diabetes presented with severe sepsis secondary to right buttocks and perineal wound infection. Patient met sepsis criteria with tachycardia (120 bpm), hypotension (BP 94/49), tachypnea (RR 24), and leukocytosis (WBC 31). CT abdomen and pelvis showed heterogeneous prostate gland with ring-enhancing low-density foci, contiguous right perineal region inflammation, small abscesses, and extensive soft tissue stranding. Patient has undergone initial debridement and is currently hemodynamically stable. - Continue cefepime, clindamycin and Vancomycin - Repeat debridement with likely diverting colostomy in next 24-48 hours by general surgery - Monitor vital signs and sepsis criteria - Continue fluid resuscitation as needed - monitor for fluid overload - having dependent edema - in eye Diabetic Ketoacidosis (DKA) with Uncontrolled Type 1 Diabetes Patient presents with mild DKA in the setting of uncontrolled type 1 diabetes. Initial anion gap was 14, now improved to 9 with fluid resuscitation. D5 infusion has been running. - Discontinue DKA lyte protocol - if become hypoglycemia put on D51/2NS - Blood glucose Q6 hours with sliding scale Electrolyte Abnormalities Patient has multiple electrolyte derangements including hyponatremia (Na 122), likely pseudohyponatremia, hypokalemia, hypomagnesemia, and hypocalcemia. These are likely multifactorial due to sepsis, DKA, and fluid shifts. - Monitor and replete electrolytes as needed - Reassess sodium levels with correction for hyperglycemia Acute Kidney Injury Patient presents with elevated BUN (132) and creatinine (1.35), indicative of acute kidney injury. This is likely pre-renal in nature due to sepsis and dehydration. - Continue fluid resuscitation - Monitor urine output - Trend BUN and creatinine Fluid Overload Patient has developed signs of fluid overload, including swollen left eye and peripheral edema, likely secondary to aggressive fluid resuscitation for sepsis and DKA management. - Reassess fluid balance - Consider diuresis if clinically indicated - Monitor for worsening edema or respiratory symptoms Urinary retention - Urology placed catheter during visit and will need to follow up outpatient Anemia Patient has normocytic anemia (Hgb 11.9, MCV 75.9) likely due to chronic disease and ongoing infection. - Monitor hemoglobin levels - Assess for signs of active bleeding Plan As a result of the above findings & factors, the following mgmt was pursued: - 05/22- plans as above. - am labs, replace lytes prn - PT/OT/CM/SW - delirium precautions: increase activity and limit nighttime disturbances - DVT prophylaxis: enoxaparin and encourage ambulation Complexity: Chronic illness with severe exacerbation, progression, or side effect of tx (HIGH). Risk: Admission to hospital-level care was considered or occurred (HIGH). Advance Directive: Full Code Anticipated Discharge - Date - 05/25 - Location - SNF - Pending the following - post-surgical plans for DC Total time spent (which include face to face and non face to face encounters) : 52 minutes Toxic drug monitoring/narrow therapeutic index drug monitoring : # Drug name : NA # Route administered : NA # Method of monitoring : NA Extended Emergency Contact Information Primary Emergency Contact: Georges Ro Mobile Relation: Sibling Secondary Emergency Contact: JiaPernell Mobile Relation: Brother Sandee Reeder MD Division of Hospitalist Medicine [facility] Images from the original note were not included. [facility] Patient Name: Miranda Ro Date: 05/22/24 Patient seen and examined. No acute events overnight. Pain controlled. Exam: Abdomen: Soft, nontender, nondistended. Perineum: Wound bed with mostly healthy wound bed with areas of necrotic tissue, greatly improved s/p debridement. Donohue with clear yellow urine Assessment and Plan: 44-year-old male with Jhoan's gangrene status postdebridement with urethral stricture status post Donohue catheter insertion Plan for repeat debridement and likely diverting ostomy placement tomorrow with possible flexible sigmoidoscopy Consult wound care for possible ostomy marking and wound care assistance going forward Continue broad-spectrum IV antibiotics for Jhoan's gangrene, leukocytosis improved Anemia- multifactorial, present on admission with subsequent drift from resuscitation, transfuse PRN NPO Urethral stricture-catheter will remain in place until after discharge for outpatient evaluation with urology Diabetes with DKA- improving with current medical management This case had moderate medical decision making and case complexity with 35 minute total care time including chart review, care coordination and face to face encounter. The patient was seen and examined independently and relevant data reviewed by myself. A full chart review was performed. I personally interviewed the patient and performed an individual physical examination. In addition, I discussed the patient's condition and treatment options with them. I have also reviewed and agree with the past medical, family and social history and care plan unless otherwise noted. All of the patient's questions were answered. Megan Mercado MD General Surgery Pager #[phone] 3:22 PM 05/22/2024 Surgery Post Op Progress Note PATIENT NAME: Miranda Ro TODAY'S DATE: 05/22/2024 SUBJECTIVE: General Surgery follow up on debridement of Jhoan's gangrene. Overall doing well. NO complaints of pain. NO acute events overnight. Pain controlled YES/NO: Yes Other Complaints YES/NO: No Flatus/BM/or Ostomy function YES/NO: Yes OBJECTIVE: VITALS: BP 115/66 (BP Location: Right leg, Patient Position: Lying) Pulse 117 Temp 36.6 C (97.9 F) (Temporal) Resp 18 Ht 5' (1.524 m) Wt 185 lb (83.9 kg) SpO2 99% BMI 36.13 kg/m INTAKE/OUTPUT: I/O last 3 completed shifts: In: 5511.5 (65.7 mL/kg) [P.O.:350; I.V.:3011.5 (35.9 mL/kg); IV Piggyback:2150] Out: 1000 (11.9 mL/kg) [Urine:900 (0.3 mL/kg/hr); Blood:100] Weight: 83.9 kg I/O this shift: In: 100 [IV Piggyback:100] Out: - CONSTITUTIONAL: awake and alert ABDOMEN: soft, nontender, and nondistended INCISION: clean, noted overall healthy tissue with some areas still of necrosis. Data: CBC: Recent Labs 05/21/24 1617 05/21/24 2226 05/21/24 2236 05/22/24 0215 05/22/24 0408 05/22/24 0722 05/22/24 1149 WBC 31.7* -- 8.0 -- -- -- 15.2* HGB 11.9* < > 9.0* < > 8.0* 7.4* 7.9* HCT 34.6* -- 27.4* -- -- -- 23.6* PLT 390 -- 195 -- -- -- 199 < > = values in this interval not displayed. BMP: Recent Labs 05/22/24 0026 05/22/24 0408 05/22/24 0722 NA 130* 129* 129* K 3.1* 3.2* 3.4* CL 94* 95* 99 CO2 18* 20* 21* BUN 29* 27* 22* CREATININE 0.92 0.81 0.70* GLUCOSE 146* 104* 162* Hepatic: Recent Labs 05/21/24 1617 AST 21 ALT <6 BILITOT 0.5 ALKPHOS 180* ASSESSMENT AND PLAN: Mr. Ro is a 44 y/o M who is s/p debridement of Jhoan's gangrene POD#1 - Dressing changed at bedside with dakins soaked kerlix - NPO x sips chips and strict NPO MN - OR tomorrow for second look debridement, flex sig, and probable diverting colostomy - Continue IV atbx KALIA Peña CNP Nutrition Assessment Type and Reason for Visit: Initial, Wound, Positive Nutrition Screen (patient with Jhoan's gangrene - rt buttock was debrided ans to return for additional and possible diverting colostomy) Nutrition Recommendations/Plan: Suggest to continue NPO- is to return to surgery today. Goal diet 45- 60 gm carb control/ meal. per MNT protocol , once on diet- will initiate Ensure Max protein(150 rosa m, 30 gm pro/serving) , Ensure hi pro( 160 rosa m, 16 gm pro/serving), and fruit punch Stephon(Stephon provides 90 kcals, 14 g amino acids, and 300 mg Vitamin C per packet serving) with trial of Prostat ( 100 rosa m, 15 gm pro/serving) Suggest bed wt as feasilbe . Consider mvi daily Please document PO intakes -diet and ONS-consistently in the flowsheet to better assess intake adequacy. Monitor labs, status, intakes to reassess. Malnutrition Assessment: Malnutrition Status: At risk for malnutrition (Comment) Context: Acute Illness Findings of the 6 clinical characteristics of malnutrition: Energy Intake: Unable to assess (deaf but indicates poor po - ? time) Weight Loss: Unable to assess Body Fat Loss: Unable to assess Muscle Mass Loss: Unable to assess Fluid Accumulation: No significant fluid accumulation [place] Strength: Not Performed Nutrition Assessment: PER TEST HOLE DRILLER-chief Complaint Patient presents with Wound Check HPI: Miranda Ro is a 44M hx uncontrolled IDDM, developmental delay, obesity who presented to the hospital for a R buttock and perineal wound that has been present for several weeks. 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 Diagnostic workup revealed concerns for severe sepsis, DKA. Evaluated by general surgery and proceeded to the OR for I&D, cystoscopy and donohue catheter placement for urethral stricture.Assessment: Severe sepsis Jhoan's gangrene s/p I&D Mild DKA, uncontrolled DMII Hyponatremia with pseudohyponatremia Normocytic anemia of chronic disease Hypokalemia, hypomagnesemia, hypocalcemia Chronic hypertension Obesity, BMI >30 . Estimated Daily Nutrient Needs: Energy Requirements Based On: Kcal/kg Weight Used for Energy Requirements: Lyndon Weight for Energy Calculation (kg): 48 kg Total Energy Requirements (kcals/day): 30-35 or 1440- 1680 Weight Used for Protein Requirements: Lyndon Weight in Kg Used for Protein Requirements: 48 kg Estimated Total Protein (g/day): 1.5-1.8 or 72-86 Estimated Daily Total Fluid (ml/day): 1. 7 liters or per md Nutrition Related Findings: Not in pain,hbaic 12,6 , na 129, k 3.4, glu 162, ca 6.8, glu 162, wbc 15.2, hgb 7.9,alb 1.4 on 05/21/24, gfr 90 on insulin, vanco,maxipine, PAWAN 15 Wound Type: Unstageable, Multiple (large debridement BUTTOCK, WOUND SCROTOM) Current Nutrition Therapies: NPO diet with enteral medications Current Oral Intake Average Meal Intake: NPO, 0% Average Supplements Intake: NPO, 0% Anthropometric Measures: Height: 152.4 cm (5') Current Body Weight: 83.9 kg (185 lb) Usual Body Weight: 95.8 kg (211 lb 4.8 oz) (08/2021) % Weight Change (Calculated): -12.4 Lyndon Body Weight (lbs) (Calculated): 106 lbs Lyndon Body Weight (Kg) (Calculated): 48 kg % Lyndon Body Weight (Calculated): 174.5 % BMI (kg/m2) (Calculated): 36.1 BMI Categories: Obese Class 2 (BMI 35.0 -39.9) Nutrition Diagnosis: Increased nutrient needs related to acute injury/trauma as evidenced by wounds, NPO or clear liquid status due to medical condition (to go back to or - debridement-possible diverting colostomy) Altered nutrition-related lab values related to endocrine dysfuntion as evidenced by lab values (uncontrolled dm,- hbaic 12.6) Nutrition Interventions: Nutrition Education/Counseling: Education not appropriate, Education needed Coordination of Nutrition Care: Continue to monitor while inpatient Plan of Care discussed with: patient, RN Goals: Goals: Meet at least 75% of estimated needs, by next RD assessment Nutrition Monitoring and Evaluation: Behavioral-Environmental Outcomes: Readiness for Change (poor dm) Food/Nutrient Intake Outcomes: Diet Advancement/Tolerance, Food and Nutrient Intake, Supplement Intake Physical Signs/Symptoms Outcomes: Biochemical Data, Chewing or Swallowing, GI Status, Nausea or Vomiting, Fluid Status or Edema, Hemodynamic Status, Meal Time Behavior, Nutrition Focused Physical Findings, Skin, Weight Discharge Planning: Too soon to determine Ivone Lorenzo RD Contact: *[phone] or secure chat Next level 05/29 -unless AUC sub/supra therapeutic DATE: 05/22/24 TIME: 9:55 AM Connie Velasquez RPh Clinical Pharmacist Available via Secure Chat Pharmacy to Dose Vancomycin - Progress Note Recent Labs 05/22/24 0026 05/22/24 0408 05/22/24 0722 BUN 29* 27* 22* CREATININE 0.92 0.81 0.70* Lab Results Component Value Date [facility] 31.0 05/22/2024 Doses, serum creatinine, and vancomycin levels interfaced automatically to [email or web address] and data has been analyzed and interpreted. Infectious Diagnosis: SSTI Est CrCl: 143 mL/min (Cockcroft-Gault) Assessment: Current regimen vancomycin 1500 mg every 12 hours. Predicted AUC = 584 mg/L*hr (goal 400-600 mg/L*hr) Plan: Is the current dose therapeutic? [x] Yes - obtain next level on 07/29/2024 unless predicted AUC is sub-/supra-therapeutic or change in serum creatinine. Trend serum creatinine. Trend AUC using Bayesian Modeling. Orders placed. DATE: 05/22/24 TIME: 9:47 AM Connie Velasquez RPh Pharmacist Available via Secure Chat Images from the original note were not included. Pharmacy Managed Vancomycin Dosing Service Consult Note Consult Date: 05/22/24 Patient Name: Miranda Ro Allergies: Penicillins Age: 44 y.o. Sex: male Estimated body mass index is 36.13 kg/m as calculated from the following: Height as of this encounter: 1.524 m (5'). Weight as of this encounter: 83.9 kg (185 lb). DW: 83.9 kg Lab Results Component Value Date CREATININE 0.92 05/22/2024 CREATININE 0.97 05/21/2024 BUN 29 (H) 05/22/2024 BUN 29 (H) 05/21/2024 WBC 8.0 05/21/2024 WBC 31.7 (HH) 05/21/2024 Calculated CrCl: 91.2 mL/min (Cockcroft-Gault) Consulted By: Yosvany Aquino [employer]ICKMASON [employer] Infectious Diagnosis: Skin and Soft Tissue (AUC Goal 400-600 mg/L*hr) Random Vancomycin Level Due: 05/22/2024 0900 Antimicrobials: Patient recently received an antibiotic (last 12 hours) Showing orders from other encounters Date/Time Action Medication Dose Rate 05/21/24 1840 Given clindamycin injection 600 mg 05/21/24 1723 New Bag vancomycin in NS (Vancocin) IVPB 2,000 mg 2,000 mg 250 mL/hr 05/21/24 1642 New Bag cefepime (Maxipime) 2,000 mg in sodium chloride 0.9 % 50 mL IVPB Mini-Bag Plus 2,000 mg 100 mL/hr Assessment/Plan: Doses, serum creatinine, and vancomycin levels interfaced automatically to [email or web address] and data has been analyzed and interpreted. Start Vancomycin 1500 mg every 12 hours based on patient age, weight, renal function, and infectious diagnosis (17.9 mg/kg). Predicted AUC = 594 mg/L*hr (goal 400-600 mg/L*hr) PAUC = 89% (probability that AUC is >400 mg/L*hr) Pconc = 27% (probability that Ctrough is above 20 mcg/mL (toxicity)) Will assess random level on 05/22/2024 and adjust as appropriate. Trend serum creatinine. Orders placed. Thank you for this consult. Please secure text or call with questions. DATE: 05/22/24 TIME: 12:57 AM Kirby Fernandes PharmD Clinical Pharmacist Available via Secure Chat Called and updated family, Georges Ro, at [phone]. Plan: 44-year-old male with Jhoan's gangrene status postdebridement with urethral stricture status post Donohue catheter insertion Plan for repeat debridement and likely diverting ostomy placement in 24 to 48 hours pending clinical progress Per brother, patient does not take any medications on a regular basis, but may have a history of diabetes Consult ICU and hospitalist to determine appropriate level of care going forward as patient has a high risk of clinical decompensation Continue broad-spectrum IV antibiotics for Jhoan's gangrene NPO Urethral stricture-catheter will remain in place until after discharge for outpatient evaluation with urology Megan Mercado MD General Surgery Pager #[phone] 8:43 PM 05/21/2024 documented in this encounter [facility] 05-30-2024 Miscellaneous Notes Patient Choice Patient Name: MIRANDA RO Date of : 1980 All Providers Sent Referral Name: [facility] Phone: [phone] Address: [address] [place] [address] Discharge med list transmitted to [facility] via [facility] per TCC request. Pt is medically ready for discharge with dc order in place. Pt will be going to [facility] and they are aware of the discharge order. Tasked SUPPLY CATALOGUER to send dc paperwork and MAR to facility. No 7000 needed. Ostomy bar needs to be removed before discharge. If PICC does not get pulled before discharge, [facility] liaison stated they can pull it once pt get to the facility. manager corporate to follow and assist as needed. Pt now has the necessary rev codes needed to go to [facility]. Notified Dr. Mercado and Ford Millan APRN-AMMY of this information. Pt can be discharged to facility once medically ready. No auth needed. manager corporate to follow and assist as needed. Spoke with [facility] liaison who states they can accept the pt. They will have the necessary rev codes needed by tomorrow 05/29. Spoke with brother Pernell who states pt has the mentality of a 13 year old and "will agree to anything". Pernell agrees with [facility] being the discharge plan. Notified [facility] lia[facility] they are [facility]. manager corporate to follow and assist as needed. Referral placed to [facility] via [facility] per TCC request. Await review and response regarding ability to accept. TCC notified. Rounds this am DCP: [facility] Bed pending. DOD pending, 05/28? PT done today: SNF 05/26- returned to OR this morning,. Further debridement obtained and Clindymycin discontinued, ostomy has output, will continue to follow with ID, and wound care. possible wound vac in future Sent updates to [facility] Per D/W [facility] no beds D/W patient - he is agreeable to [facility] Notes in [facility] DCP: [facility] when ready for DC Referral placed to - [facility] via [facility] per [facility] request. Await review and response regarding ability to accept. TCC notified. Rounds this am DCP: pending [facility] review Jhoan's gangrene status postdebridement 05/21 urethral stricture status post Donohue catheter insertion 05/21 laparoscopic diverting loop sigmoid colostomy 05/23 surgery for debridement 05/26 Denied by [facility] Tasked SUPPLY CATALOGUER to send referrals to [facility] Last PT notes are 05/23 [facility] can accept Spoke to patient at bedside, he is agreeable Pending DOD 05/28 per notes Updated [facility] Pt knows name and birthday did not know where he was or why at this time To 2 east via bed on 3 l of o2 report to danny pt resting on left side there is some sero sanguinous drng from the surgical area as there is saline kerlix packed in wound Images from the original note were not included. Date: 05/26/2024 PreOp Dx: Jhoan's Gangrene/Necrotizing Infection of the Perineum PostOp Dx: Same Procedure: Debridement of Skin, Subcutaneous, Tissue, Muscle and Fascia of the perineum and scrotum Surgical Procedure Classification: Surgical Procedure Classification [] Elective (EL) [x] Urgent (UR) [] Emergent (EM) [] Trauma (TR) Wound Classification: Surgical Wound Classification [] Class I/Clean (CL) [] Class II/Clean-Contaminated (CC) [] Class III/Contaminated (C) [x] ClassIV/Dirty-Infected (D) Complications: None Specimen(s): None Notes EBL: 10cc Transfusion: none Fluids: See anesthesia record Drains: 2 wet to dry Kerlix placed in wound Donohue: See anesthesia record Special Meds: Scheduled antibiotics Surgeon: Megan Mercado MD Assist: Malathi PRAKASH Anesthesia: General Indications: This is a 44-year-old male who presented to the hospital 5 days prior Jhoan's gangrene. He had previously undergone 2 debridements and diverting loop sigmoid colostomy placement. Given his severe necrotizing infection, it was recommended for 1 more planned return trip to the operating room for debridement of the perineum. Risks, benefits and alternatives of surgery were discussed with the patient decision was made to proceed. Informed consent was obtained. Description of procedure: The patient was brought to the operative suite and placed in the supine position. General anesthesia was induced. A timeout was performed verifying the correct patient, procedure, site and positioning. The patient was placed in a lithotomy position and all bony prominences were padded. The area was prepped and draped in a sterile fashion with Betadine solution. The wound was thoroughly inspected. Necrotic tissue was identified at the peripheral aspect of the wound. This was sharply debrided to clean healthy bleeding edges. The base of the wound also had some minimal necrotic tissue that was sharply debrided. No additional fistulous tracts were identified. Bilateral testicles remained uninvolved. The rectum remained uninvolved. The wound was then thoroughly irrigated and hemostasis was ensured. No further purulence or necrosis was identified. Given the minimal debridement required today, no future planned return to the operating room. However, the wound will be inspected daily and monitored for progress. The patient tolerated the procedure well, was awoken from anesthesia and transferred to PACU in stable condition. All counts were correct. Problem: Knowledge Deficit Goal: Patient/family/caregiver demonstrates understanding of disease process, treatment plan, medications, and discharge instructions Outcome: Progressing Problem: Potential for Compromised Skin Integrity Goal: Skin Integrity is Maintained or Improved Outcome: Progressing Goal: Nutritional status is improving Outcome: Progressing Problem: Urinary Incontinence Goal: Perineal skin integrity is maintained or improved Outcome: Progressing Problem: Problem Interventions Goal: Assess Nutritional Intake Outcome: Progressing Goal: Dietary Supplements Outcome: Progressing Goal: Promote nutritional intake Outcome: Progressing Problem: Knowledge Deficit Goal: Patient/family/caregiver demonstrates understanding of disease process, treatment plan, medications, and discharge instructions Outcome: Progressing Problem: Potential for Compromised Skin Integrity Goal: Skin Integrity is Maintained or Improved Outcome: Progressing Goal: Nutritional status is improving Outcome: Progressing Problem: Urinary Incontinence Goal: Perineal skin integrity is maintained or improved Outcome: Progressing Problem: Problem Interventions Goal: Assess Nutritional Intake Outcome: Progressing Goal: Dietary Supplements Outcome: Progressing Goal: Promote nutritional intake Outcome: Progressing Report called to 2E RN. Pt entered for transport (tele order states yes to transport without monitor) in stable condition with all belongings. BGT checked prior to arrival to PACU - treated I the OR - CONSOLE MANAGER instruction to wait to check. This SAWYER HELPER signed into glucose monitor for OR BGT check while patient in OR during surgery. Images from the original note were not included. Date: 05/23/2024 PreOp Dx: Jhoan's Gangrene with Necrotizing Soft Tissue Infection PostOp Dx: Same Procedure: 1) Debridement of Skin, Subcutaneous, Tissue, Muscle and Fascia of the perineum and scrotum 2) Flexible Sigmoidoscopy 3) Laparoscopic Diverting Loop Colostomy Surgical Procedure Classification: Surgical Procedure Classification [x] Elective (EL) [] Urgent (UR) [] Emergent (EM) [] Trauma (TR) Wound Classification: Surgical Wound Classification [] Class I/Clean (CL) [] Class II/Clean-Contaminated (CC) [] Class III/Contaminated (C) [x] ClassIV/Dirty-Infected (D) Complications: None Specimen(s): Swab for culture and stain Notes EBL: 50cc Transfusion: none Fluids: See anesthesia record Drains: 2 Dakin's soak Kerlix in perineal wound Donohue: See anesthesia recprd Special Meds: Scheduled Antibiotics, TAP block Surgeon: Megan Mercado MD Assist: Gabriel Leyva MD assisted as there was no qualified resident available to assist. Anesthesia: General Indications: This is a 44-year-old male who 36 hours prior had undergone emergent debridement of Jhoan's gangrene for a necrotizing skin and soft tissue infection. The patient was subsequently resuscitated and his diabetic ketoacidosis resolved and it was recommended he undergo a planned return to the operating room for further debridement and diverting colostomy given the proximity of the wound to his rectum. Risks, benefits and alternatives were discussed with the patient and family and decision was made to proceed. Informed consent was obtained. Description of procedure: The patient was brought to the operative suite and placed in the lithotomy position. General anesthesia was induced. A timeout was performed verifying the correct patient, procedure, site and positioning. The perineum was prepped and draped in a sterile fashion with Betadine solution. The abdomen was prepped and draped in a sterile fashion with chlorhexidine solution. Further necrotic tissue in the perineum, perirectal area, scrotum and anterior abdominal wall were sharply debrided to clean healthy bleeding edges. Moderate amount of necrotic and purulent tissue was present. The dissection included tunica albuginea and perirectal tissues. However, the testicle or rectum were not involved. The wound was then thoroughly irrigated and hemostasis was ensured. We then performed a flexible sigmoidoscopy to rule out obstructing mass lesion and/or source of infection. The colonoscope was inserted via the anal opening and advanced to 40 cm. There was healthy mucosa throughout. There was no obvious obstructing mass lesion. Solid stool obstructed the lumen partially, but visualization was generally adequate. The colonoscope was then removed. The perineal wound was then packed with Dakin soaked Kerlix and sterile dressing. We then performed a laparoscopic diverting loop sigmoid colostomy. A Veress needle was inserted at Reyna's point and the abdomen was insufflated to 15 mmHg. An optical trocar was then placed and no obvious injury was noted. 2 additional 5 mm trocars were then placed in the periumbilical and right lower quadrant under direct visualization. General abdominal survey revealed no obvious gross abnormalities. Inspection of the pelvis revealed no involvement of peritoneal structures by his peritoneal necrotizing soft tissue infection. We then mobilized the sigmoid and descending colon by incising the white line of Toldt with the Enseal device. Once the colon was adequately mobilized we selected a portion of sigmoid colon neck and easily stretch to a colostomy site in the patient's left lower quadrant. We then created a loop sigmoid colostomy. Skin and subcutaneous tissue were circumferentially dissected down to the level of the fascia. A cruciate incision was made in the anterior fascia. A Brandi clamp was inserted and the muscle was spread. A cruciate incision was made in the posterior sheath. The mobile loop of sigmoid colon was then delivered through the ostomy site. An ostomy bar was placed and the ostomy was matured with 3-0 Vicryl sutures. We then reexamined the ostomy laparoscopically and there is no undue tension or torsion with the colon oriented appropriately. The abdomen is then thoroughly irrigated and hemostasis was ensured. The abdomen was then desufflated. The port sites were closed using 4-0 Monocryl. An ostomy appliance was then applied. The patient was then awoken from anesthesia and transferred to PACU in stable condition. All counts were correct. Plan for perineal wound reevaluation and possible additional debridement in 48 to 72 hours. Referral placed to [facility] via [facility] per TCC request. Await review and response regarding ability to accept. TCC notified. Rounds this am DCP: TBD PT rec: SNF Spoke with [facility] Rep. May be appropriate due to wound mangement Will send referral POC Continue cefepime, clindamycin and Vancomycin Repeat debridement with likely diverting colostomy in next 24-48 hours by general surgery Rounds this am DCP: home at [place] Mr. Ro stated that his brother is his primary decision maker should he not be able to make decisions. Deafness, speech impairment Severe sepsis Jhoan's gangrene s/p I&D Mild DKA, uncontrolled DMII Hyponatremia with pseudohyponatremia Normocytic anemia of chronic disease Hypokalemia, hypomagnesemia, hypocalcemia PreOp Dx Jhoan's Gangere PostOp Dx Same and urethral stricture disease Operation Cystoscopy, cystogram, urethral dilation, difficult donohue placement (20F [place]) Surgeon Triston Bal MD Assist None EBL Minimal Drains none Donohue 20 F [place] Specimen none Condition To PACU This is a 44 y.o. 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 General surgery had already debrided him, however, they could not get bladder drainage I was called as an intraoperative consult to place the donohue Patient had diffuse stricture disease, torres urethral stricture disease, I was able to dilate the metaus from 12F to 26F with haymen sounds. I then placed the 21 F cystoscope into the urethra and was able to place a wire into the bladder, confirmed under fluoroscopy. I then used the haymens and dilated the urethra from 12F to 20F, it was very dense and dilating through very dense tissue. I then placed the cytoscope into the bladder. I was unable to visualize much given the hematuria. I placed a 20F [place] over the wire. The catheter irrigated easily. I did a cystogram to confirm placement to confirm no bladder injury with dilation. Cystogram revealed no extravasation 20CC placed in the catheter balloon He will remain admitted at [facility], will need follow up with urology as an outpatient. Will keep the catheter in place Images from the original note were not included. 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 Bal Surgical Procedure Classification: Surgical Procedure Classification [] Elective (EL) [] Urgent (UR) [x] Emergent (EM) [] Trauma (TR) Wound Classification: Surgical Wound Classification [] Class I/Clean (CL) [] Class II/Clean-Contaminated (CC) [] Class III/Contaminated (C) [x] ClassIV/Dirty-Infected (D) Complications: None Specimen(s): 1) Tissue for culture and stain 2) Swab for culture and stain Notes EBL: 100cc Transfusion: none Fluids: See anesthesia record Drains: none Donohue: 20 Fr. Councill placed by urology Special Meds: Cefepime, Zosyn, Clindamycin Surgeon: Megan Mercado MD Assist: SA Anesthesia: General Indications: This is a 44-year-old male with MRDD and past history of diabetes not currently on medications who presented to the hospital with complaints of a right buttock wound. Evaluation in the emergency department revealed concern for necrotizing soft tissue infection and it was recommended he undergo emergent exploration in the operating room. Risks, benefits and alternatives of surgery were discussed with the patient decision was made to proceed. Informed consent was obtained. Description of procedure: The patient was brought to the operative suite and placed in the lithotomy position. General anesthesia was induced. The area was prepped and draped in sterile fashion with Betadine solution. A timeout was performed verifying the correct patient, procedure, site and positioning. We started with an attempted Donohue catheter insertion. There was noted to be a very narrowed meatus and a 10 [place] Donohue catheter would not pass easily. Therefore urology was consulted. In the interim, necrotic skin and subcutaneous tissues of the right buttock and perineum were sharply debrided to clean healthy bleeding tissue. Subcutaneous tissue, muscle and fascia were all involved. Necrotic tissue extended up to the wall of the rectum, but did not appear to involve the rectum. Digital rectal exam revealed the rectum to be intact. All necrotic tissue was excised. The scrotum was not involved. The testicles were not involved. Urology arrived and performed extensive urethral dilation and cystoscopy with placement of 20 [place] Councill catheter. Contrast was utilized to ensure no injury to the bladder. We again reevaluated the site of debridement. Additional necrotic tissue was debrided to clean healthy bleeding edges. The rectum was again examined and not felt to be involved. The wound was then thoroughly irrigated and hemostasis was ensured with electrocautery. The wound was then packed with 2 Dakin soaked Kerlix with ABDs and mesh underwear. A Donohue bag was connected to the catheter. The patient was extubated, awoken from anesthesia and transferred to PACU in stable condition. All counts were correct. Given the amount of necrotic tissue and proximity to the rectum, we will plan for repeat debridement and diverting colostomy in 24 to 48 hours. documented in this encounter [facility] 05-30-2024 Hospital Discharg e instructions Ford Millan, [employer] - 05/30/2024 10:30 AM EDT Images from the original note were not included. DISCHARGE INSTRUCTIONS Thank you very much for allowing me to participate in your care, it is truly a privilege. Below please see discharge orders that will help you during your recovery. Please do not hesitate to call the office at [phone] for any questions. After hours, the same number will allow you to reach the on-call surgeon. Call the office to schedule your post-operative appointment with Dr. Mercado or PA/TEST HOLE DRILLER for 2 weeks if not already scheduled. (May need to be seen before 2 weeks if stitches and/or drains present) Change bandages daily or more frequently if needed. Keep incisions clean with soap/ water daily. (Peroxide OK as well) Cover incision(s) as needed. Please remove the Steri-Strips 5 days after surgery. This includes any clear bandages and gauze placed in the navel, if applicable. If you have skin glue this will come off on its own Diet: Regular General guidelines for activity: no heavy lifting for 4 weeks OK to shower in 24 hours You may have pain medicine ordered. Please take as directed/needed. Some discomfort, mild bruising, and swelling are not unusual; please call my office if you have any severe pain, hemorrhage, or high fever (over 101 F) Resume home medications as directed (see medication reconciliation sheet) Watch for signs of infection: Excessive warmth or bright redness around your incisions Leakage of bloody or cloudy fluid from you incisions Fever over 100.5 If you experience constipation Increase your water intake. Increase your activity; walking is best. An over the counter stool softener or mild laxative may be necessary if you still have not had a bowel movement after several days. Please call the office at [phone] for any questions and too make your post op appointment if needed. Thank you again for allowing me to participate in your care, and get well soon! Megan Mercado MD Megan Mercado MD - 05/28/2024 10:52 AM EDT Images from the original note were not included. Continuity of Care Form Patient Name: Miranda Ro : 1980 Admit date: 05/21/2024 Discharge date: Code Status Order: Full Code Advance Directives: N Admitting Physician: Megan Mercado MD PCP: No primary care provider on file. Discharging Nurse: Discharging Hospital Unit/Room#: B2-258/B2-258 A Discharging Unit Phone Number: Emergency Contact: Extended Emergency Contact Information Primary Emergency Contact: Georges Ro Mobile Relation: Sibling Secondary Emergency Contact: Pernell Ro Mobile Relation: Brother Past Surgical History: Past Surgical History: Procedure Laterality Date APPENDECTOMY LAPAROSCOPIC COLOSTOMY 05/23/2024 Flexible sigmoidoscopy, simple colostomy placement PELVIS DEBRIDEMENT 05/21/2024 jhoan's gangrene PELVIS DEBRIDEMENT 05/26/2024 debridement of perineal wound UPPER GASTROINTESTINAL ENDOSCOPY 06/18/2020 Dr lazar/CAL WOUND DEBRIDEMENT Right 05/23/2024 Second look debridement right buttock & perineum Immunization History: Immunization History Administered Date(s) Administered Influenza, injectable, quadrivalent, preservative free 12/27/2016, 01/01/2020 Pneumococcal Polysaccharide PPSV23 01/01/2020 Tdap 01/01/2020 Active Problems: Medical Problems Problem List * (Principal) Jhoan's gangrene Chavarria's palsy Sepsis with acute renal failure and septic shock, due to unspecified organism, unspecified acute renal failure type (HCC) Class 3 severe obesity due to excess calories without serious comorbidity with body mass index (BMI) of 40.0 to 44.9 in adult ([facility]) Noncompliance with diabetes treatment Helicobacter pylori gastritis Type 2 diabetes mellitus with hyperglycemia ([facility]) Unable to care for self Hearing impaired Scoliosis Speech impairment Gout Hypertriglyceridemia Essential hypertension Cellulitis of buttock Wound of left buttock Necrotizing soft tissue infection Isolation/Infection: No active isolations No active infections Nurse Assessment: Last Vital Signs: BP 156/94 (BP Location: Left arm, Patient Position: Lying) Pulse 112 Temp 36.5 C (97.7 F) (Temporal) Resp 16 Ht 1.524 m (5') Wt 90.7 kg (200 lb) SpO2 98% BMI 39.06 kg/m Last documented pain score (0-10 scale): Last Weight: Wt Readings from Last 1 Encounters: 05/26/24 90.7 kg (200 lb) Mental Status: FABIANA Patient Mental Status: oriented, alert, thought processes intact, and able to concentrate and follow conversation IV Access: FABIANA IV Access: None PICC - site: upper arm right, condition {iv condition:259044::"patent","no redness"}, insertion date: 05/27/2024 Nursing Mobility/ADLs: Walking Total assistance Transfer Minimal assistance Bathing Minimal assistance Dressing Minimal assistance Toileting Minimal assistance Feeding Independent Lifestyle Director Independent Med Delivery yes Wound Care Documentation and Therapy: Wound/Incision 05/23/24 Incision Buttock Right (Active) Site Assessment Unable to assess 05/27/242034 Renuka-Wound Assessment Unable to assess 05/27/242034 Drainage Description Serosanguineous 05/27/242034 Odor None 05/27/242034 Drainage Amount Small 05/27/242034 Treatments Other (Comment) 05/27/242034 Primary Dressing Rolled gauze (Kerlix);Dakin's wet to dry;ABD 05/27/242034 Dressing Status Clean, dry & intact 05/27/242034 Number of days: 4 Wound/Incision 05/23/24 Incision Scrotum (Active) Site Assessment Unable to assess 05/27/242034 Renuka-Wound Assessment Unable to assess 05/27/242034 Drainage Description Serosanguineous 05/27/242034 Odor None 05/27/242034 Drainage Amount Small 05/27/242034 Treatments Other (Comment) 05/27/242034 Primary Dressing Rolled gauze (Kerlix);Dakin's wet to dry;ABD 05/27/242034 Dressing Status Clean, dry & intact 05/27/242034 Number of days: 4 Wound/Incision 05/26/24 Perineum (Active) Number of days: 2 Elimination: Continence: Bowel: yes Bladder: yes Urinary Catheter: Insertion date: Colostomy/Ileostomy/Ileal Conduit: 1:1 conduction - msec Colostomy LUQ-Stomal Appliance: 1 piece Colostomy LUQ-Site Assessment: Clean, Intact, Red Colostomy LUQ-Peristomal Assessment: Clean, Intact, Storrs Colostomy LUQ-Treatment: Placement checked Colostomy LUQ-Output (mL): 150 mL Date of Last BM: 05/30 Intake/Output Summary (Last 24 hours) at 05/28/2024 1051 Last data filed at 05/28/2024 0725 Gross per 24 hour Intake 710 ml Output 3450 ml Net -2740 ml I/O last 3 completed shifts: In: 750 (8.3 mL/kg) [P.O.:750] Out: 5050 (55.7 mL/kg) [Urine:4350 (1.3 mL/kg/hr); Stool:700] Weight: 90.7 kg Safety Concerns: none Impairments/Disabilities: Patient has cognitive impairment and [place] Nutrition Therapy: Current Nutrition Therapy: Oral diet: carb control 4 carbs/meal (1800kcals/day) Routes of Feeding: oral Liquids: no restrictions Daily Fluid Restriction: no Last Modified Barium Swallow with Video (Video Swallowing Test): not done Treatments at the Time of Hospital Discharge: Respiratory Treatments: Oxygen Therapy: is not on home oxygen therapy. Ventilator: No ventilator support Rehab Therapies: physical therapy and occupational therapy Weight Bearing Status/Restrictions: no restriction Other Medical Equipment (for information only, NOT a DME order): none Other Treatments: Patient's personal belongings (please select all that are sent with patient): none RN SIGNATURE: MANAGEMENT/SOCIAL WORK SECTION Inpatient Status Date: 05/21/24 Discharging to Facility/ Agency Name: [facility] Address: [address] [place], [place] [id number] Fax: Dialysis Facility (if applicable) Name: Address: Dialysis Schedule: Phone: Fax: Emergency Medical Technician Basic/Schedule Announcer signature: ICIAN SECTION Name: Miranda Ro Prognosis: {Rehab Prognosis:03929} Condition at Discharge: {Patient Condition:90745} Rehab Potential (if transferring to Rehab): {Rehab Prognosis:27873} Recommended Labs or Other Treatments After Discharge: The individual is being admitted to a nursing facility directly from an [facility] or a unit of a [facility] that is not operated by or licensed by [facility] under section 5119.14 or 5160-3-15.1 5 The individual requires the level of services provided by a nursing facility for the condition for which he or she was treated in the hospital and, Physician Certification: I certify the above information and transfer of Miranda Ro is necessary for the continuing treatment of the diagnosis listed and that he requires LTAC for less than 30 days. Update Admission H&P: No change in H&P PHYSICIAN SIGNATURE: documented in this encounter [facility] 05-28-2024 Consult note Associated Order (s): PHARMACY TO DOSE VANCO Vancomycin therapy has been discontinued by Dr. Zhong on 05/28/24. Thank you for the consult. Pharmacy signing off for vancomycin dosing. Serge Hansen [facility], PharmD Date: 05/28/24 Time: 12:07 PM Cosigned by Megan Mercado MD at 05/28/2024 2:54 PM EDT Associated Order(s): IP CONSULT TO DIETITIAN Images from the original note were not included. Nutrition Assessment Type and Reason for Visit: Initial, Wound, Positive Nutrition Screen (patient with Jhoan's gangrene - rt buttock was debrided ans to return for additional and possible diverting colostomy) Nutrition Recommendations/Plan: Suggest to continue NPO- is to return to surgery today. Goal diet 45- 60 gm carb control/ meal. per MNT protocol , once on diet- will initiate Ensure Max protein(150 rosa m, 30 gm pro/serving) , Ensure hi pro( 160 rosa m, 16 gm pro/serving), and fruit punch Stephon(Stephon provides 90 kcals, 14 g amino acids, and 300 mg Vitamin C per packet serving) with trial of Prostat ( 100 rosa m, 15 gm pro/serving) Suggest bed wt as feasilbe . Consider mvi daily Please document PO intakes -diet and ONS-consistently in the flowsheet to better assess intake adequacy. Monitor labs, status, intakes to reassess. Malnutrition Assessment: Malnutrition Status: At risk for malnutrition (Comment) Context: Acute Illness Findings of the 6 clinical characteristics of malnutrition: Energy Intake: Unable to assess (deaf but indicates poor po - ? time) Weight Loss: Unable to assess Body Fat Loss: Unable to assess Muscle Mass Loss: Unable to assess Fluid Accumulation: No significant fluid accumulation [place] Strength: Not Performed Associated Order(s): INPATIENT CONSULT TO CRITICAL CARE - MEDICAL TEAM Critical Care Initial Visit Note CC: Chief Complaint Patient presents with Wound Check HPI: Miranda Ro is a 44M hx uncontrolled IDDM, developmental delay, obesity who presented to the hospital for a R buttock and perineal wound that has been present for several weeks. 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 Diagnostic workup revealed concerns for severe sepsis, DKA. Evaluated by general surgery and proceeded to the OR for I&D, cystoscopy and donohue catheter placement for urethral stricture. Post-operatively, ICU was asked to evaluate. He was seen in the PACU initially, then on the medical floor thereafter. He does not have pain at present. Denies other symptoms, minimal verbal interaction, communicating with hand signals. History: PMH: Past Medical History: Diagnosis Date Chavarria's palsy Deaf Diabetes mellitus (HCC) Gout Hypertension Obesity Scoliosis Speech impairment FH: family history includes Asthma in his mother; Cancer in his brother; Diabetes in his brother and mother; Early natural in his sister; Heart disease in his mother; High Blood Pressure in his mother. SH: Social History Socioeconomic History Marital status: Single Spouse name: Not on file Number of children: Not on file Years of education: Not on file Highest education level: Not on file Occupational History Not on file Tobacco Use Smoking status: Never Smokeless tobacco: Never Substance and Sexual Activity Alcohol use: No Alcohol/week: 0.0 standard drinks of alcohol Drug use: No Sexual activity: Not on file Other Topics Concern Not on file Social History Narrative Not on file Social Drivers of Health Financial Resource Strain: Low Risk (08/29/2021) Received from [facility] Overall Financial Resource Strain (CARDIA) Difficulty of Paying Living Expenses: Not hard at all Food Insecurity: No Food Insecurity (05/21/2024) Hunger Vital Sign Worried About Running Out of Food in the Last Year: Never true Ran Out of Food in the Last Year: Never true Transportation Needs: No Transportation Needs (05/21/2024) PRAPARE - Transportation Lack of Transportation (Medical): No Lack of Transportation (Non-Medical): No Physical Activity: Not on file Stress: No Stress Concern Present (05/21/2024) [place] [employer] - Occupational Stress Questionnaire Feeling of Stress : Only a little Social Connections: Unknown (05/21/2024) Social Connection and Isolation Panel [NHANES] Frequency of Communication with Friends and Family: Never Frequency of Social Gatherings with Friends and Family: Never Attends Cheondoism Services: Never Active Member of Clubs or Organizations: No Attends Club or Organization Meetings: Never Marital Status: Patient declined Intimate Partner Violence: Not At Risk (05/21/2024) Humiliation, Afraid, Rape, and Kick questionnaire Fear of Current or Ex-Partner: No Emotionally Abused: No Physically Abused: No Sexually Abused: No Housing Stability: Low Risk (05/21/2024) Housing Stability Vital Sign Unable to Pay for Housing in the Last Year: No Number of Times Moved in the Last Year: 0 Homeless in the Last Year: No ROS: Per HPI. Objective Findings: Vitals: BP (!) 94/49 (BP Location: Right arm) Pulse 120 Temp (!) 35.7 C (96.2 F) (Temporal) Resp 24 Ht 1.524 m (5') Wt 83.9 kg (185 lb) SpO2 100% BMI 36.13 kg/m Intake/Output Summary (Last 24 hours) at 05/22/2024 0045 Last data filed at 05/21/2024 2355 Gross per 24 hour Intake 1649 ml Output 400 ml Net 1249 ml EXAM: PHYSICAL EXAM: General Appearance: []No acute distress ill appearing, not overtly toxic [x]Obese []Cachectic []Thin [x]ill Skin: Temperature [x]Warm []Cool Rash []Yes [x]No Post-operative dressing over perineum HEENT: Pupils round and react [x]Yes []No Sclera []Icteric [x]Non-Icteric Conjunctiva [x]Normal []Pale Oral Mucosa [x]Storrs [x]Moist []Dry Oral ETT []Present [x]Absent Lungs: [x]Clear []Crackles []Wheezes []Rhonchi Respiratory effort [x]Labored tachypneic []Non-Labored Equal chest rise [x]Yes []No Trachea midline [x]Yes []No Heart: Rate []Regular []Irregular [x]Tachycardia []Bradycardia Rhythm [x]Sinus []Irregular Murmur []Present [x]Absent Capillary Refill [x]<2 sec []>2 sec Peripheral Pulses [x]Strong []Weak []Absent Abdomen: [x]Soft Bowel Sounds []Present []Absent []Tender [x]Non-Tender []Distended [x]Non-distended Hernia []Present [x]Absent Organomegaly []Present [x]Absent Mass []Present [x]Absent Extremities: Cyanosis []Present [x]Absent ABDI ([x]RUE [x]RLE [x]LUE [x]LLE) Clubbing []Yes [x]No Edema []Yes [x]No Neurologic: Alert [x]yes []no Follows simple commands, hard of hearing, signing with his hands -- not really responding verbally [place] []Yes [x]No Follows Commands [x]Yes []No []Unresponsive to verbal [x]Cranial nerves grossly intact [x]Sensation grossly intact Psych: Affect []Normal [x]Flat []Agitated []Anxious [x]Calm []Sedated [x]NAD Hallucinations []Yes [x]No Medications: Scheduled Meds: cefepime, 2,000 mg, IntraVENous, q8h clindamycin in D5W, , , clindamycin, 600 mg, IntraVENous, q8h enoxaparin, 40 mg, SubCUTAneous, Daily insulin lispro, 0.2 Units/kg, SubCUTAneous, q2h Or insulin lispro, 0.1 Units/kg, SubCUTAneous, q2h lactated ringers, 1,000 mL, IntraVENous, q1h magnesium sulfate, 4,000 mg, IntraVENous, Once PRN Meds: PRN medications: acetaminophen, clindamycin in D5W, lactated ringers AND lactated Ringer's AND dextrose 5 % and sodium chloride 0.45 % AND dextrose 5 % and sodium chloride 0.45 %, dextrose, dextrose, glucagon (rDNA), glucose, morphine sulfate OR morphine sulfate, naloxone, ondansetron ODT OR ondansetron, oxyCODONE OR oxyCODONE, potassium chloride CR OR potassium chloride CR OR potassium chloride CR OR potassium chloride OR potassium chloride OR potassium chloride OR potassium chloride Results: CBC: Recent Labs 05/21/24 16105/21/24222505/21/242235 WBC 31.7* -- 8.0 HGB 11.9* 10.3* 9.0* HCT 34.6* -- 27.4* MCV 75.9* -- 79.2 PLT 390 -- 195 BMP: Recent Labs 05/21/24 16105/21/24222505/21/242235 NA 122* 127* 128* K 3.8 3.1* 2.9* CL 78* 92* 93* CO2 10* 13* 13* BUN 32* 31* 29* CREATININE 1.35* 1.00 0.97 MG -- -- 1.4* LIVER PROFILE: Recent Labs 05/21/241616 AST 21 ALT <6 BILITOT 0.5 ALKPHOS 180* Diagnostics: 05/21 CT AP: FINDINGS: Abdomen: Visualized lung bases grossly unremarkable. No radiopaque gallstones. Liver without significant abnormality. Spleen enlarged measuring approximately 17 cm in maximal AP dimension, without focal abnormality. Pancreas without significant abnormality. 4 cm cyst in the right kidney. Mild caliectasis in left kidney without apparent renal calcification. Adrenal glands without significant abnormality. Pelvis: Bowel grossly unremarkable. Appendix not confidently identified. No significant, free peritoneal fluid or apparent adenopathy. Abdominal aorta is nonaneurysmal. Urinary bladder is distended, with slight wall thickening inferiorly adjacent to the prostate. Small amount of gas in the nondependent urinary bladder may be due to recent instrumentation. Correlate clinically. Prostate gland shows heterogeneous attenuation and somewhat ring-enhancing, low-density focus or collection inferiorly measuring approximately 4 x 2 cm. This appears contiguous with oblong, ring-enhancing, low-density focus or collection in the right paramedian perineum measuring approximately 1.8 x 3.8 cm. Extensive soft tissue stranding and edema noted throughout the right inferior gluteal and perineal subcutaneous tissues. No apparent subcutaneous gas or emphysema. Axial skeleton grossly intact. IMPRESSION: 1. Heterogeneous prostate gland, with ring-enhancing, low-density focus or collection inferiorly and also contiguous with the right perineal region suspicious for nonspecific infectious or inflammatory or phlegmonous process as well as small abscesses, noted above. 2. More extensive soft tissue stranding and edema and probable inflammatory or phlegmonous change and cellulitis in the right gluteal and perineal subcutaneous tissues. 3. Urinary bladder distention, with mild inferior wall thickening and slight intraluminal gas bubbles suspicious for possible fistula formation. Follow-up according. 4. Splenomegaly. 5. Right renal cyst, and mild left renal caliectasis without apparent nephrolithiasis. Assessment: Severe sepsis Jhoan's gangrene s/p I&D Mild DKA, uncontrolled DMII Hyponatremia with pseudohyponatremia Normocytic anemia of chronic disease Hypokalemia, hypomagnesemia, hypocalcemia Chronic hypertension Obesity, BMI >30 Deafness, speech impairment Plan: No ICU criteria at present S/p I&D (05/22) -- plan for return to OR for repeat I&D, diverting ostomy in the coming days Volume resuscitated per sepsis protocol OR cultures pending ATB reordered -- Vanc/Cefepime/Clinda Hemodynamics acceptable at present, still with some tachycardia but BP maintaining well DKA mild -- meets criteria for subcutaneous insulin management -- ordered Follow serial labs per protocol Hgb dilutional with chronic component -- no overt S&S bleeding FEN: follow electrolytes closely -- replace K aggressively given acidemia, replace Mg now Prophylaxis: lovenox Remains stable for telemetry monitoring on [facility]. Discussed with Dr Canales, the hospitalist power plant operations manager. Code Status: Rn Compliance spent preparing to see the patient, obtaining/reviewing separately obtained history, completing an appropriate medical examination of the patient, ordering medications/tests/procedures, documenting clinical information on the EMR, and/or coordinating care is an initial visit: 75 minutes (Level III). Derrick Aquino APRN-TIRE MAN Critical Care Plan of care discussed with Dr Camilo. SEP-1 CORE MEASURE DATA SIRS Criteria Sepsis Criteria Severe Sepsis Criteria Septic Shock Criteria Must meet 2: [] Temperature > 100.4 F (38 C) or < 96.8 F (36 C) [x] HR > 90 [x] RR > 20 [x] WBC > 12 or < 4 or 10% bands Must be confirmed or suspected to move forward with diagnosis of sepsis. Must select at least one: [x] Bacterial Infection Confirmed or Suspected. [] Viral Infection Confirmed or Suspected. [] No infection present. Patient does not meet criteria for Sepsis. Must meet 1: [x] Lactate > 2 or [] Signs of Organ Dysfunction: - SBP < 90 or MAP < 65 - Altered mental status - Creatinine > 2 or increased from baseline - Urine Output < 0.5 ml/kg/hr - Bilirubin > 2 - INR > 1.5 - Platelets < 100,000 - Acute Respiratory Failure as evidenced by new need for NIPPV or mechanical ventilation [] No criteria met for Severe Sepsis. Must meet 1: [] Lactate = or > 4 or [] SBP < 90 or MAP < 65 for at least two readings in the first hour after fluid bolus administration [x] No criteria met for Septic Shock. Patient Vitals from 05/21/24 2301 to 05/22/24 0000 BP Temp Temp src Pulse Resp SpO2 05/21/24 2335 91/51 (!) 35.7 C (96.2 F) Temporal (!) 122 24 99 % 05/21/24 2336 (!) 94/49 -- -- 120 -- 100 % Recent Labs 05/21/24 1617 05/21/24 2226 05/21/24 2236 WBC 31.7* -- 8.0 LACTATE 4.3* 3.1* -- CREATININE 1.35* 1.00 0.97 BILITOT 0.5 -- -- PLT 390 -- 195 Sepsis Identified at [id number]. Fluid Resuscitation Rational: at least 30mL/kg based on entered actual body weight at time of triage Infection Source: Skin or Soft Tissue Reassessment Exam: Not applicable. Patient does not have Septic Shock. Cosigned by Ford Camilo DO at 05/22/2024 5:31 AM EDT Associated Order(s): IP CONSULT TO HOSPITALIST Hospitalist Consult from 05/21/2024 10:13 PM Subjective: Admit Date: 05/21/2024 PCP: No primary care provider on file. Hospital Day: 1 Interval History: Seen today in the room. He is seen post op Pain in groin area No nausea/vomiting/cp or sob He is deaf but reads lips Currently feels comfortable. With no other complaints besides minimal groin pain Medications: Current Facility-Administered Medications: acetaminophen (Tylenol) tablet 650 mg, 650 mg, Oral, q4h PRN, Megan Mercado MD clindamycin in D5W (Cleocin) 600 MG/50ML IVPB - Pyxis ADS Override Pull, , , , dextrose 5 % infusion, 100 mL/hr, IntraVENous, PRN, Javed Nunez Nam, BRICKM[employer] CONTRACTOR - CONSOLE MANAGER dextrose 50 % solution 12.5 g, 12.5 g, IntraVENous, PRN, Javed Nunez Nam, [employer]ICKM[employer] CONTRACTOR - CONSOLE MANAGER [START ON 05/22/2024] enoxaparin (Lovenox) syringe 40 mg, 40 mg, SubCUTAneous, Daily, Megan Mercado MD glucagon (human recombinant) injection 1 mg, 1 mg, IntraMUSCular, PRN, Javed Nunez Nam, [employer]ICKM[employer] CONTRACTOR - CONSOLE MANAGER glucose oral gel 15 g, 15 g, Oral, PRN, Javed Enrique Nam, [employer] CONTRACTOR - CONSOLE MANAGER [START ON 05/22/2024] Insulin Lispro (Humalog) injection 0-6 Units, 0-6 Units, SubCUTAneous, TID WC AND Insulin Lispro (Humalog) injection 0-6 Units, 0-6 Units, SubCUTAneous, Nightly, Javedblanca Nunez Nam, [employer] CONTRACTOR - CONSOLE MANAGER lactated Ringer's (LR) infusion, 125 mL/hr, IntraVENous, Continuous, Megan Mercado MD morphine injection 2 mg, 2 mg, IntraVENous, q2h PRN OR morphine injection 4 mg, 4 mg, IntraVENous, q2h PRN, Megan Mercado MD naloxone (Narcan) injection 0.4 mg, 0.4 mg, IntraVENous, q5 min PRN, Megan Mercado MD ondansetron ODT (Zofran-ODT) disintegrating tablet 4 mg, 4 mg, Oral, q8h PRN OR ondansetron (Zofran) injection 4 mg, 4 mg, IntraVENous, q6h PRN, Megan Mercado MD oxyCODONE (Roxicodone) immediate release tablet 5 mg, 5 mg, Oral, q4h PRN OR oxyCODONE (Roxicodone) immediate release tablet 10 mg, 10 mg, Oral, q4h PRN, Megan Mercado MD No current outpatient medications Objective: BP Min: 100/59 Max: 164/151 Temp Av.4 C (97.5 F) Min: 36.2 C (97.1 F) Max: 36.7 C (98 F) Pulse Av.9 Min: 122 Max: 150 Resp Av.3 Min: 20 Max: 26 SpO2 Av.5 % Min: 92 % Max: 100 % Weight Av lb (83.9 kg) Min: 185 lb (83.9 kg) Max: 185 lb (83.9 kg) Temp (48hrs), Av.4 C (97.5 F), Min:36.2 C (97.1 F), Max:36.7 C (98 F) Intake/Output Summary (Last 24 hours) at 05/21/2024 2213 Last data filed at 05/21/2024 2019 Gross per 24 hour Intake 1649 ml Output 100 ml Net 1549 ml IV Intake: Charanjit: Failed to redirect to the Timeline version of the [employer] SmartLink. 05/20 0700 - 05/21 1859 In: 1049 [I.V.:999] Out: - Vitals: BP 125/64 (BP Location: Right leg, Patient Position: Lying) Pulse (!) 131 Temp 36.2 C (97.1 F) (Temporal) Resp 24 Wt 185 lb (83.9 kg) SpO2 92% BMI 36.13 kg/m Pulse Ox: SpO2 Av.5 % Min: 92 % Max: 100 % Supplemental O2: O2 Flow Rate (L/min): 5 L/min General appearance: Alert, on phone in bed Reads lips as he is almost deaf HEENT: Normal cephalic, atraumatic without obvious deformity. Pupils equal, round, and reactive to light. Neck: Supple, with full range of motion. No jugular venous distention. Trachea midline. No lymphadenopathy. Respiratory: Normal respiratory effort. Clear to auscultation, bilaterally without Rales/Wheezes/Rhonchi. Cardiovascular: Regular rate and rhythm with normal S1/S2 without murmurs, rubs or gallops. Abdomen: Soft, non-tender, non-distended with normal bowel sounds. No rebound or guarding. Current perineum bandaged after surgery. Musculoskeletal: No clubbing, cyanosis or edema bilaterally. Full range of motion without deformity. Bandage Skin: Skin color, texture, turgor normal. No rashes or lesions. Neurologic: Neurovascularly intact without any focal sensory/motor deficits. Cranial nerves: II-XII intact, grossly non-focal. 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 He met sepsis criteria with suspected source of infection and buttock and Jhoan's gangrene He will be placed on triple coverage of antibiotics including vancomycin cefepime and clindamycin until further cultures can come back. Sepsis labs were drawn Blood and wound cultures currently pending Lactic acid elevated 4.3 on admission consistent with severe sepsis He is s/pt his bolus and will trend lactate SEP-1 CORE MEASURE DATA SIRS Criteria Sepsis Criteria Severe Sepsis Criteria Septic Shock Criteria Must meet 2: [] Temperature > 100.4 F (38 C) or < 96.8 F (36 C) [x] HR > 90 [x] RR > 20 [x] WBC > 12 or < 4 or 10% bands Must be confirmed or suspected to move forward with diagnosis of sepsis. Must select at least one: [x] Bacterial Infection Confirmed or Suspected. [] Viral Infection Confirmed or Suspected. [] No infection suspected Must meet 1: [x] Lactate > 2 or [] Signs of Organ Dysfunction: - SBP < 90 or MAP < 65 - Altered mental status - Creatinine > 2 or increased from baseline - Urine Output < 0.5 ml/kg/hr - Bilirubin > 2 - INR > 1.5 - Platelets < 100,000 - Acute Respiratory Failure as evidenced by new need for NIPPV or mechanical ventilation . Must meet 1: [] Lactate = or > 4 or [] SBP < 90 or MAP < 65 for at least two readings in the first hour after fluid bolus administration [] No SIRS criteria met [] Only one SIRS criteria met (Patient does not meet criteria for SIRS) [x] Sirs Criteria Met (at least 2) [] Criteria for sepsis NOT met [x] Criteria for sepsis met [] No criteria met for severe sepsis [x] Criteria for severe sepsis met [x] No criteria met for septic shock. [] Criteria met for septic shock. Hyperglycemia H/o diabetes Presents with DKA He reports he is on insulin at home currently he is not able to tell me his basal and prandial insulin types doses He also reports he is on metformin which could be contributing to his lactic acidosis On presentation his glucose was 441, his anion gap was 34, his bicarb was 10 c/w dka and he had positive ketones He will be started on the DKA light protocol subcutaneous insulin fluids and will monitor frequent BMPs\\\\icu saw and put in protocol Hyponatremia Sodium would correct up some due to hyperglycemia Report sodium of 122 on arrival. When corrected for his elevated glucose this would correct up to 1 27-1 30 so still has mild hyponatremia. Hyponatremia labs will be ordered however with the amount of fluids of medications he has received urine studies not likely to be accurate we will need to monitor for his correction of sodium arleth Patient creatinine elevated from baseline Hold ibuprofen he was on at home He will already be getting frequent renal profiles with DKA light protocol above Lab Results Component Value Date CREATININE 1.35 (H) 05/21/2024 CREATININE 0.57 08/15/2021 CREATININE 0.57 06/18/2020 CREATININE 0.56 06/17/2020 CREATININE 0.45 (L) 01/01/2020 Diet per surgery disease plan to return to the OR Pain and nausea control as ordered Adult diet Clear liquid NPO diet with enteral medications Discharge planning: replace lytes prn -increase activity -DVT prophylaxis: [] Pharmocologic prophylaxis on hold to due risk of bleeding or procedure [] DOAC [] Lovenox [] Heparin [x] SCDs [x] Encourage ambulation [] Already on full dose anticoagulation Omar Canales MD Division of Hospitalist Medicine Inpatient Medical Services documented in this encounter [facility] 05-28-2024 Note Referral placed to [facility] via Careport per TCC request. Await review and response regarding ability to accept. TCC notified. [facility] 05-27-2024 Nurse Note Interventional Radiology Post Procedure: Miranda tolerated his PICC placement very well. He is alert and in no distress. PICC is at 34cm right upper arm. His right arm circumference is 31cm. Stat Lock in place. Dressing is dry and intact. Ok to use order is in. Report called to the floor nurse. IR Procedures: Miranda is here from [facility] [place] for a PICC placement . Miranda is deaf. He does verbalize understanding of what a PICC is, and the instructions. History, allergies, medications and lab results reviewed. Informed consent has been signed. Prepped and draped in sterile fashion. Time out performed. He is on a monitor. Patient ready for the procedure. IR is ready. Patient's ostomy bag was leaking under transparent dressing. Ostomy bag was completely removed and replaced with a new one. Patient tolerated this well. Stoma is red and moist and is currently held in place by white plastic rods that are stitched in. Wound Care consulted for Pressure Injury Prevention. Pt's Pawan score= 13 on 05/22 Pt's pressure points assessed. Pt's Heels, Back, Elbows, Occiput and ears all intact. Pt rolling in bed with assist from blanking machine operator and nursing aide to readjust glide sheet and pads. Please see General Surgery progress notes for assessment/treatment. Pt with surgical dressing noted to right buttock. Please see Prevention Measures in place, including: [place] sheet with pillows/wedges, Heels elevated off bed on pillows, Zinc/Moisture Barrier ointment (obtained), Waffle chair cushion (obtain for pt once getting out of bed). Skin Care precaution order set in place. Dietitian consult in place. PT consult in place. D/W nursing staff. Will continue to follow pt. Please secure chat for any questions or concerns. Rosalie Pond RN documented in this encounter [facility] 05-26-2024 Telephone encounter Note Scheduled pt for 06/02/24 at 8:30am at [address] [place] Scheduled pt for 07/03/24 at 3pm at [address] Belle Called and spoke to pt at [facility] in his room [phone] because the 2 phone #s listed don't work. Pt gave me new phone # [phone], haven't tried this yet. Will mail pt a letter with appts also. [facility] 05-26-2024 Miscellaneous Notes Scheduled pt for 06/02/24 at 8:30am at [address] [place] Scheduled pt for 07/03/24 at 3pm at [address] Belle Called and spoke to pt at [facility] in his room [phone] because the 2 phone #s listed don't work. Pt gave me new phone # [phone], haven't tried this yet. Will mail pt a letter with appts also. Pt admitted to [facility] for [facility]iers Had cysto with dilation by Dr Bal on 05/21/24 Currently with [address] Will need void trial after discharge, and 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 Patient should follow up with Dr Belle for urethral stricture disease documented in this encounter [facility] 05-26-2024 Telephone encounter Note Pt admitted to [facility] for fourniers Had cysto with dilation by Dr Bal on 05/21/24 Currently with [address] Will need void trial after discharge, and 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 [facility] [employer] Work Phone: 05-26-2024 Note Referral placed to [facility] via Careport per TCC request. Await review and response regarding ability to accept. TCC notified. [facility] 05-26-2024 Note [facility] 05-23-2024 Note [facility] 05-23-2024 Note [facility] 05-23-2024 Note Referral placed to [facility] via [facility]port per TCC request. Await review and response regarding ability to accept. TCC notified. [facility] 05-21-2024 Telephone encounter Note Patient should follow up with Dr Belle for urethral stricture disease [facility] 05-21-2024 Note [facility] 05-21-2024 Note Peripheral IV Date/Time: 05/21/2024 6:31 PM Inserted by: Beti Rosenberg APRN - GOKUL Placement Needle size: 18 G Laterality: right Location: forearm Local anesthetic: none Site prep: alcohol Technique: ultrasound guided Attempts: 1 [facility] 05-21-2024 Note [facility] 05-21-2024 History and physical note Images from the original note were not included. Department of Surgery H&P PATIENT NAME: Miranda Ro DATE OF : 1980 ADMISSION DATE: 05/21/2024 3:11 PM TODAY'S DATE: 05/21/2024 Chief Complaint: Buttock Wound HISTORY OF PRESENT ILLNESS: The patient is a 44 y.o. male who presents with buttock wound. The patient states the wound has been present for several weeks. He has never had this sort of wound before. He states it has gotten worse and acutely worsened today. The patient is MRDD and mildly deaf, and his history is limited. Per the chart he has a history of diabetes. It is unclear his home regimen. No recent A1c in the chart. He also has a history of gastritis and appendectomy. No blood thinning medications. Patient was tachycardic with a necrotic looking wound in the emergency department. 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 Thoroughly reviewed the patient's medical history, family history, social history and review of systems with the patient today. Please see medical record for pertinent positives. Past Medical History: Past Medical History: Diagnosis Date Chavarria's palsy Deaf Diabetes mellitus (HCC) Gout Hypertension Obesity Scoliosis Speech impairment Past Surgical History: Past Surgical History: Procedure Laterality Date APPENDECTOMY UPPER GASTROINTESTINAL ENDOSCOPY 06/18/2020 Dr lazar/CAL Current Medications: No current outpatient medications vancomycin, 2,000 mg, IntraVENous, Once Allergies: Penicillins Social History: Social History Substance and Sexual Activity Drug Use No Family History: Family History Problem Relation Name Age of Onset Cancer Brother Diabetes Mother Asthma Mother High Blood Pressure Mother Heart disease Mother Diabetes Brother Early natural Sister -7 months old REVIEW OF SYSTEMS: Review of Systems All other systems reviewed and are negative. PHYSICAL EXAM: VITALS: BP (!) 164/151 Pulse (!) 138 Temp 36.3 C (97.4 F) (Temporal) Resp 20 Wt 185 lb (83.9 kg) SpO2 97% BMI 36.13 kg/m 24HR INTAKE/OUTPUT: No intake/output data recorded. I/O this shift: In: 50 [IV Piggyback:50] Out: - Physical Exam Constitutional: General: He is not in acute distress. Appearance: He is not ill-appearing. HENT: Head: Normocephalic and atraumatic. Eyes: General: No scleral icterus. Pupils: Pupils are equal, round, and reactive to light. Cardiovascular: Rate and Rhythm: Regular rhythm. Tachycardia present. Pulmonary: Effort: Pulmonary effort is normal. No respiratory distress. Abdominal: General: There is no distension. Tenderness: There is no abdominal tenderness. Musculoskeletal: General: No swelling or tenderness. Skin: General: Skin is warm. Coloration: Skin is not jaundiced. Comments: Large wound of the left buttock with surrounding erythema, underlying fluctuance and overlying necrosis. Neurological: General: No focal deficit present. Mental Status: He is oriented to person, place, and time. Psychiatric: Mood and Affect: Mood normal. Thought Content: Thought content normal. DATA: CBC: Recent Labs 05/21/24 1617 WBC 31.7* HGB 11.9* HCT 34.6* PLT 390 BMP: Recent Labs 05/21/24 1617 NA 122* K 3.8 CL 78* CO2 10* BUN 32* CREATININE 1.35* GLUCOSE 441* Hepatic: Recent Labs 05/21/24 1617 AST 21 ALT <6 BILITOT 0.5 ALKPHOS 180* Mag: No results for input(s): "MG" in the last 72 hours. Phos: No results for input(s): "PHOS" in the last 72 hours. INR: No results for input(s): "INR" in the last 72 hours. 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 May need urology consult pending operative findings Broad-spectrum IV antibiotics initiated We will proceed to the OR for debridement of Jhoan's gangrene. Risks, benefits and alternatives to surgery discussed Informed consent obtained. Pending operative findings, may need ICU care after surgery. Discussed with ICU Mr. Ro stated that his brother is his primary decision maker should he not be able to make decisions. This case had high medical decision making and case complexity with 75 minute total care time including chart review, care coordination and face to face encounter. The patient was seen and examined independently and relevant data reviewed by myself. A full chart review was performed. I personally interviewed the patient and performed an individual physical examination. In addition, I discussed the patient's condition and treatment options with them. I have also reviewed and agree with the past medical, family and social history and care plan unless otherwise noted. All of the patient's questions were answered. Megan Mercado MD General Surgery Pager #[phone] Perfect Serve: Megan Mercado 6:22 PM 05/21/2024 documented in this encounter [facility] 10-20-2022 History of Presen t illness Narrative Chart Review Situation: Last office visit 08/29/2021, please see below last A1C over a year ago. Lab Results Component Value Date HGBA1C 9.8 (A) 10/14/2020 Next appointment with provider: None on file Plan: Left msg for return call to schedule office visit. This result has been reviewed by Dayana Liu RN on 10/20/22 at 3:01 PM. documented in this encounter [facility] 08-15-2021 Hospital DischRuth Arrington MD - 08/15/2021 [facility] at [facility] emergency department for lightheadedness as well as facial drooping. The symptoms in your face are known as a Chavarria's palsy and do not reflect a stroke. This is very often caused by a virus, but you do not have signs of the viruses that we can treat with medications. However, steroids do sometimes help speed the process up. We will discharge you with a course of steroids which she should take as directed and follow-up with your PCP. Your blood pressure was also high here today which likely contributed to your lightheadedness in association with dehydration. Please follow-up with your family care doctor and restart your high blood pressure medications which you have stopped. Please return if you develop severe headache, weakness, numbness, tingling, discoordination in any of your limbs, visual changes, chest pain, shortness of breath. 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 Sepsis with acute renal failure and septic shock, due to unspecified organism, unspecified acute renal failure type (HCC) Cellulitis of buttock Cellulitis and abscess of buttock 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 Wound of left buttock, subsequent encounter Necrotizing soft tissue infection Sepsis with acute renal failure and septic shock, due to unspecified organism, unspecified acute renal failure type (HCC) Cellulitis of buttock Cellulitis and abscess of buttock Wound of left buttock Necrotizing soft tissue infection [facility] Diagnosis Pelvic abscess in male (CMS/HCC) (HCC)- Primary Pelvic abscess in male (CMS/HCC) (HCC) Wound of left buttock, subsequent encounter Anxiety Anxiety state, unspecified [facility]* Diagnosis 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 Polymicrobial bacterial infection Uncontrolled type 2 diabetes mellitus with hyperglycemia (HCC) vermin exterminator current use of antibiotics [facility]* Diagnosis Abscess, gluteal, right- Primary Prostate abscess Abscess of prostate Polymicrobial bacterial infection Uncontrolled type 2 diabetes mellitus with hyperglycemia (HCC) vermin exterminator current use of antibiotics [facility]* Diagnosis Abscess, gluteal, right- Primary Prostate abscess Abscess of prostate Polymicrobial bacterial infection [facility] current use of antibiotics [facility]* Diagnosis Abscess, gluteal, right- Primary Prostate abscess Abscess of prostate Polymicrobial bacterial infection vermin exterminator current use of antibiotics documented in this encounter [facility] note* Diagnosis Abscess, gluteal, right- Primary Prostate abscess Abscess of prostate Polymicrobial bacterial infection vermin exterminator current use of antibiotics documented in this encounter [facility] note* Diagnosis Prostate abscess- Primary Abscess of prostate Abscess, gluteal, right 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 Wound of left buttock, sequela Polymicrobial bacterial infection Necrotizing soft tissue infection [facility] current use of antibiotics documented in this encounter [facility] note* Diagnosis Prostate abscess- Primary Abscess of prostate Abscess, gluteal, right 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 Polymicrobial bacterial infection vermin exterminator current use of antibiotics Drug rash Dermatitis due to drugs and medicines taken internally Fungal dermatitis Unspecified dermatomycosis documented in this encounter [facility] note* Diagnosis Prostate abscess- Primary Abscess of prostate Abscess, gluteal, right 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 Cellulitis of buttock Cellulitis and abscess of buttock Polymicrobial bacterial infection Fungal dermatitis Unspecified dermatomycosis documented in this encounter [facility] note* Diagnosis Prostate abscess- Primary Abscess of prostate Abscess, gluteal, right 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 Fungal dermatitis Unspecified dermatomycosis FPC current use of antibiotics Drug rash Dermatitis due to drugs and medicines taken internally documented in this encounter [facility] note* Diagnosis Stricture of male urethra, unspecified stricture type- Primary Prostate abscess Abscess of prostate documented in this encounter [facility] Advance Directives No Advanced Directives Records FoundDocuments on File Type Date Recorded Patient Gravel Inspector Expl anation ACP-Advance Directive declin ed12/18/14-RW ACP-Power of Mobile Health Vehicle Operator Documents on File Type Date Recorded Patient Gravel Inspector Expl anation ACP-Advance Directive declin e 04/15/20 JS ACP-Power of Mobile Health Vehicle Operator Documents on File Type Date Recorded Patient Gravel Inspector Expl anation ACP-Advance Directive declin e 04/15/20 JS ACP-Power of Mobile Health Vehicle Operator Latest Code Status on File Code Status Date Activated Date Inactivated Comments Full Code 06/18/2020 3:28 AM Latest Code Status on File Code Status Date Activated Date Inactivated Comments Full Code 06/18/2020 3:28 AM 06/18/2020 3:14 PM Date Activated Date Inactivated Comments 05/21/2024 9:53 PM Date Activated Date Inactivated Comments 05/21/2024 9:53 PM 05/30/2024 6:54 PM Documents on File Type Date Recorded Patient Gravel Inspector Expl anation Advance Directives and Living Will 06/06/2024 5:45 PM HCPOA completed, senior copywriter y attached to chart, copy sent to medical records Date Activated Date Inactivated Comments 06/04/2024 8:44 PM 06/06/2024 10:34 PM Date Activated Date Inactivated Comments 05/21/2024 9:53 PM 05/30/2024 6:54 PM Healthcare Agents on File Name Relationship Healthcare Agent Relationshi p Communication Georges Ro Sibling Health Care Agent Pernell Pierre Alternate Health Care Agent Documents on File Type Date Recorded Patient Gravel Inspector Expl anation Power of Mobile Health Vehicle Operator 06/09/2024 10:39 AM Advance Directives and Living Will 06/06/2024 5:45 PM HCPOA completed, senior copywriter y attached to chart, copy sent to medical records Date Activated Date Inactivated Comments 06/04/2024 8:44 PM 06/06/2024 10:34 PM Date Activated Date Inactivated Comments 05/21/2024 9:53 PM 05/30/2024 6:54 PM Healthcare Agents on File Name Relationship Healthcare Agent Relationshi p Communication Georges Ro Sibling Health Care Agent Pernell Pierre Alternate Health Care Agent Healthcare Agents on File Name Relationship Healthcare Agent Relationshi p Communication Georges Ro Sibling Health Care Agent Pernell Pierre Alternate Health Care Agent Healthcare Agents on File Name Relationship Healthcare Agent Relationshi p Communication Georges Ro Sibling Health Care Agent Pernell Pierre Alternate Health Care Agent Healthcare Agents on File Name Relationship Healthcare Agent Relationshi p Communication Georges Ro Sibling Health Care Agent Pernell Pierre Alternate Health Care Agent Healthcare Agents on File Name Relationship Healthcare Agent Relationshi p Communication Georges Ro Sibling Health Care Agent Pernell Pierre Alternate Health Care Agent Healthcare Agents on File Name Relationship Healthcare Agent Relationshi p Communication Georges [place] Health Care Agent Pernell Pierre Alternate Health Care Agent Healthcare Agents on File Name Relationship Healthcare Agent Relationshi p Communication Georges [place] Health Care Agent Pernell Pierre Alternate Health Care Agent Healthcare Agents on File Name Relationship Healthcare Agent Relationshi p Communication Georges [place] Health Care Agent Pernell Pierre Alternate Health Care Agent Reason for Referral Status Reason Specialty Diagnoses / Procedures Referred By Contact Referred To Contact Open Specialty Services Required Home Health Services Diagnoses Type 2 diabetes mellitus with hyperglycemia, with long-term current use of insulin (HCC) Unable to care for self Trey Marie MD [address] [place] [address] Felicitas Moran LPN [address] [place] [address] Scheduling Instructions Felicitas Moran L[place], [place] [address] phone: [phone] ext [phone] fax: [phone] Discharge Instructions * Discharge Instr - Activity* Rosario Lambert RN - 06/18/2020 12:41 PM EDT As tolerated * Discharge Instr - Diet* Rosario Lambert RN - 06/18/2020 12:41 PM EDT Good nutrition is important when healing from an illness, injury, or surgery. Follow any nutrition recommendations given to you during your hospital stay. If you were given an oral nutrition supplement while in the hospital, continue to take this supplement at home. You can take it with meals, in-between meals, and/or before bedtime. These supplements can be purchased at most local grocery stores, pharmacies, and chain [employer]stores. If you have any questions about your diet or nutrition, call the hospital and ask for the dietitian. Healthy diet * Additional Instructions* Trey Marie MD - 06/18/2020 STOP Taking Metformin and Lantus daily Start Taking Trulicity once a week Your Lipitor has been increased to 80mg nightly GENERAL SIGNS AND SYMPTOMS GREEN ZONE: All Clear- Your Symptoms Are Under Control No recurrence of symptoms that led to hospitalization Able to do usual activities No fever No chest pain No shortness of breath This Means You Should: Continue taking your medications as prescribed Continue activity as tolerated Keep all doctor appointments YELLOW ZONE: Caution as Your Health may be Worsening Recurrence of symptoms that led to hospitalization Fever of 100 degrees or higher Increased fatigue or restlessness Intolerant side-effects of medications Uneasy feeling or that something is wrong This Means You Should: Call your doctor for further instructions Angelita iRck MD [address] [place], [place] [id number] RED ZONE: Medical Alert Severe or unrelieved shortness of breath at rest Unrelieved chest pain Confusion or you can't think clearly This Means You Should Call 911 Immediately * Attachments The following attachments cannot be sent through Care Everywhere. * EGD (Upper Endoscopy): Post-op (Togolese) * Upper GI Bleed (Togolese) documented in this encounter History of Present Illness * Ko Flynn RN - 06/18/2020 11:08 AM EDT POST ENDOSCOPY PROCEDURE TRANSFER REPORT Procedure completed: EGD Findings:erythema and granularity Specimens obtained: biopsies Medications administered: Robinol, lidocaine, propofol, zofran Additional Info: please see Dr Lazar brief op note For additional Questions please call Endoscopy at [phone]. Thank You! * Aretha Moctezuma MD - 06/18/2020 9:52 AM EDT Seen independently. Reviewed lab and imaging and retail sales consultant notes.Reviewed resident's H and P and notes and agree 40 yo presents with 3 eposodes of hematemesis with large volume with no antecedent symptoms. Low risk-nonsmoker,no nsaids,no alcohol. No emesis after arrival. No c/o abdominal pain or nausea Pt lives with GF and behavior therapist (for DD). Pt has DM uncontrolled and eats a lot of food from vending machines (BMI 43).Lowered lantus to 8 from 10 as pt is npo. A1c 05/02 was 11-not taking meds. Will try sglt2 once a week to help this and work with coordinator and insurance company for outpt care Triglycerides are over 2000-non compliant with meds Pts vitals are stable and pt is asymptomatic . Hb is in normal range and stable. Last emesis about 9 pm. Platelets are normal. INR ordered but not done GI plans scope today documented in this encounter Assessments Diagnosis Upper GI bleed- Primary Hemorrhage of gastrointestinal tract, unspecified Hyperlipidemia, unspecified hyperlipidemia type Type 2 diabetes mellitus with hyperglycemia, with long-term current use of insulin (HCC) Unable to care for self Hematemesis Essential hypertension Unspecified essential hypertension Hypertriglyceridemia Pure hyperglyceridemia Class 2 severe obesity with serious comorbidity and body mass index (BMI) of 39.0 to 39.9 in adult (HCC) Type 2 diabetes mellitus with hyperglycemia (HCC) Type II or unspecified type diabetes mellitus without mention of complication, not stated as uncontrolled Summary Purpose Family History No Family History Records FoundNo Family History Records FoundNo Family History Records Found Additional Source Comments Reason for Visit (unrecogniz ed section and content) Reason Comments Hematemesis Reason Comments Rash Facial Droop Reason Onset Date Comments Care Coordination Outreach 10/20/2022 Diabetes 10/20/2022 Reason Onset Date Comments Post-op Follow-up 05/21/2024 Reason Comments Wound Check Specialty Diagnoses / Procedures Referred By Dmitry fleming Referred To Contact Diagnoses Cellulitis of buttock Jhoan's gangrene Sepsis with acute renal failure and septic shock, due to unspecified organism, unspecified acute renal failure type (HCC) Procedures . Megan Mercado MD [address] [place] [address] Phone: tel: fax: [facility] Card[facility] Progressive [facility] Unit PCU [address] [place] [address] Phone: tel: Referral ID Status Reason Start Date Expiration Date Visits Re quested Visits Authorized [id number] 1 Reason Comments Wound Infection Patient to ED #30 vi a squad for a wound infection to his buttocks. MRDD from [facility] for evaluation. Specialty Diagnoses / Procedures Referred By Contac t Referred To Contact Diagnoses Pelvic abscess in male (CMS/HCC) (HCC) Procedures . Dahlia Funez MD [address] [place] [address] Phone: tel: fax: [facility] [address] [place] [address] Phone: tel: Referral ID Status Reason Start Date Expiration Date Visits Re quested Visits Authorized [id number] 1 Reason Onset Date Comments Appointment Request 07/09/2024 Reason Onset Date Comments Other 07/02/2024 Central scheduli ng Reason Onset Date Comments Results 07/14/2024 Elevated Vanc tr Reason Comments Urinary Catheter Problem Ordered Prescriptions (unrec ognized section and content) Prescription Sig Dispensed Refills Start Date End Da te Dulaglutide (TRULICITY) 1.5 MG/0.5ML SOPN Inject 1.5 mg into the skin once a week 10 pen 3 06/18/2020 pantoprazole (PROTONIX) 40 MG tablet Take 1 tablet by mouth every morning (before breakfast) 30 tablet 3 06/18/2020 atorvastatin (LIPITOR) 80 MG tabletIndications:Hyperlip idemia, unspecified hyperlipidemia type Take 1 pill by mouth nightly 90 tablet 0 06/18/2020 Prescription Sig Dispensed Refills Start Date End Da te predniSONE (DELTASONE) 20 MG tablet Take 3 tablets by mouth daily for 7 days 5 tablet 0 08/15/2021 08/22/2021 Scheduled Active and Recently Administ ered Medications (unrecognized section and content) Medication Order 08/13/2021 08/14/2021 08/15/2021 lactated ringers bolus (COMPLETED) 1,000 mL, IntraVENous, at 1,935.5 mL/hr, Administer over 31 Minutes, ONCE, On Sun08/15/21 at 1529, For 1 dose 1628 (New Bag - Prov ider: Neyda Field RN)1724 (Stopped - Provider: Neyda Field, RN) metoprolol (LOPRESSOR) injection 5 mg (COMPLETED) 5 mg, IntraVENous, ONCE, 1 dose, On Sun08/15/21 at 1630 1641 (Given - Provid er: Neyda Field RN) Scheduled Medication Order 05/28/2024 05/29/2024 05/30/2024 ceFAZolin (Ancef) 1,000 mg in sodium chloride 0.9 % 50 mL IVPB (CANCELED) 1,000 mg, IntraVENous, at 100 mL/hr, Administer over 30 Minutes, Every 8 hours, First dose on Sun05/28/24 at 1700, Mini-Bag Plus bag, Suspected Indication (Select all that apply): Skin and Soft Tissue Infection 1607 (New Bag - Provider: Abelardo Villalobos RN)1637 (Stopped - Provider: Abelardo Villalobos RN) 0039 (New Bag - Provider: Chalo Guzman RN)0109 (Stopped - Provider: Chalo Guzman, TREVER)1028 (New Bag - Provider: Danny Patterson, RN)1058 (Stopped - Provider: Danny Patetrson, RN) ceFAZolin (Ancef) 2,000 mg in sodium chloride 0.9 % 100 mL IVPB (CANCELED) 2,000 mg, IntraVENous, at 200 mL/hr, Administer over 30 Minutes, Every 8 hours, First dose (after last modification) on Mimi 05/29/24 at 1700, Mini-Bag Plus bag, Suspected Indication (Select all that apply): Skin and Soft Tissue Infection 2045 (New Bag - Provider: Chalo Guzman RN)211 (Stopped - Provider: Chalo Guzman RN) 0058 (New Bag - Provider: Chalo Guzman RN)0128 (Stopped - Provider: Chalo Guzman, RN)1046 (New Bag - Provider: Rajwinder Palacios RN)1116 (Stopped - Provider: Rajwinder Palacios, RN) cefepime (Maxipime) 2,000 mg in sodium chloride 0.9 % 50 mL IVPB Mini-Bag Plus (CANCELED) 2,000 mg, IntraVENous, at 12.5 mL/hr, Administer over 240 Minutes, Every 8 hours, First dose on Sun05/22/24 at 0045, Mini-Bag Plus bag, Suspected Indication (Select all that apply): Skin and Soft Tissue Infection 0220 (New Bag - Provider: Jasiel Campbell, RN)0620 (Stopped - Provider: Jasiel Campbell, RN)1115 (New Bag - Provider: Abelardo Villalobos, RN)1515 (Stopped - Provider: Abelardo Villalobos, RN) collagenase 250 UNIT/GM ointment Topical, Daily, First dose on Sun05/27/24 at 1730, Nursing staff to perform dressing change: Perineum: Jhoan's Gangrene/Necrotizing infection S/P surgical debridement -cleanse with NS, apply santyl followed by Dakin's moist to dry, cover with dry clean dressing daily and PRN. -Envella bed 0900 (Canceled Entry - Provider: Automatic Discharge Provider - Comment: Automatically canceled at discontinue of medication order) 1030 (Given - Provider: Danny Patterson RN) 1252 (Given - Provider: Rajwinder Palacios, RN) Insulin Lispro (Humalog) injection 0-12 Units(Linked Group 1) 0-12 Units, SubCUTAneous, 3 times daily with meals, First dose on Sun05/29/24 at 1215, Medium Dose Correction Algorithm Glucose: Dose: LESS than 150 No Insulin 150-199 2 Units 200-249 4 Units 250-299 6 Units 300-349 8 Units 350-400 10 Units Above 400 12 Units 1312 (Given - Provider: Danny Patterson RN)1801 (Given - Provider: Danny Patterson RN) 0858 (Given - Provider: Rajwinder Palacios, RN)1239 (Given - Provider: Rajwinder Palacios, RN)1700 (Canceled Entry - Provider: Automatic Discharge Provider - Comment: Automatically canceled at discontinue of medication order) Insulin Lispro (Humalog) injection 0-12 Units(Linked Group 1) 0-12 Units, SubCUTAneous, Nightly, First dose on Sun05/29/24 at 2100, If eating or bolus tube feeding: Medium Dose Correction Algorithm Glucose: Dose: LESS than 150 No Insulin 150-199 2 Units 200-249 4 Units 250-299 6 Units 300-349 8 Units 350-400 10 Units Above 400 12 Units 2044 (Given - Provider: Chalo Guzman, RN) Insulin Lispro (Humalog) injection 0-6 Units (CANCELED)(Linked Group 2) 0-6 Units, SubCUTAneous, Every 6 hours, First dose on Sun05/22/24 at 1200, Low Dose Correction Algorithm Glucose: Dose: LESS than 150 No Insulin 150-199 1 Unit 200-249 2 Units 250-299 3 Units 300-349 4 Units 350-400 5 Units Above 400 6 Units 0018 (Given - Provider: Jasiel Campbell RN)0610 (Given - Provider: Jasiel Campbell RN)1155 (Given - Provider: Abelardo Villalobos RN)1659 (Given - Provider: Abelardo Villalobos RN) 0039 (Given - Provider: Chalo Guzman RN)0627 (Given - Provider: Chalo Guzman, TREVER)1200 (Not Given - Provider: Danny Patterson RN - Reason: Other) Insulin Lispro (Humalog) injection 0-6 Units (CANCELED)(Linked Group 2) 0-6 Units, SubCUTAneous, Nightly, First dose on Sun05/22/24 at 2100, If eating or bolus tube feeding: Low Dose Correction Algorithm Glucose: Dose: LESS than 150 No Insulin 150-199 1 Unit 200-249 2 Units 250-299 3 Units 300-349 4 Units 350-400 5 Units Above 400 6 Units 2000 (Given - Provider: Chalo Guzman, TREVER) metroNIDAZOLE (Flagyl) IVPB 500 mg (CANCELED) 500 mg, IntraVENous, at 100 mL/hr, Administer over 60 Minutes, Every 8 hours, First dose on Sun05/23/24 at 1830, Suspected Indication (Select all that apply): Intra-Abdominal Infection 0219 (New Bag - Provider: Jasiel Campbell RN)0319 (Stopped - Provider: Jasiel Campbell RN)1117 (New Bag - Provider: Abelardo Villalobos RN)1217 (Stopped - Provider: Abelardo Villalobos, TREVER)2000 (New Bag - Provider: Chalo Guzman RN)2100 (Stopped - Provider: Chalo Guzman RN) metroNIDAZOLE (Flagyl) tablet 500 mg 500 mg, Oral, Every 8 hours, First dose on Mimi 05/29/24 at 0600, Suspected Indication (Select all that apply): Skin and Soft Tissue Infection 06 (Given - Provider: Chalo Guzman RN)131 (Given - Provider: Danny Patterson RN)2044 (Given - Provider: Chalo Guzman RN) 06 (Given - Provider: Chalo Guzman, RN)1606 (Given - Provider: Rajwinder Palacios, RN) sodium chloride 0.9% (NS) flush 10 mL 10 mL, IntraVENous, Every 12 hours scheduled (2 times per day), First dose on Sun05/22/24 at 2100 0900 (Not Given - Provider: Abelardo Villalobos RN - Reason: IV Fluids Infusing)2005 (Given - Provider: Chalo Guzman RN) 1030 (Given - Provider: Danny Patterson RN)2044 (Given - Provider: Chalo Guzman RN) 0900 (Not Given - Provider: Rajwinder Palacios, RN - Reason: Other) sodium chloride 0.9% (NS) flush 10 mL 10 mL, IntraCATHeter, Every 12 hours, First dose on Sun05/27/24 at 1000, Administer to each lumen. Line Care. Use 10 mL or larger syringe. 0020 (Given - Provider: Jasiel Campbell RN)1000 (Not Given - Provider: Abelardo Villalobos RN - Reason: IV Fluids Infusing)2005 (Given - Provider: Chalo Guzman RN) 1030 (Given - Provider: Danny Patterson, TREVER)2044 (Given - Provider: Chalo Guzman RN) 1000 (Not Given - Provider: Rajwinder Palacios RN - Reason: Other) sodium hypochlorite (Dakin's (HALF-Strength)) 0.25 % external solution Irrigation, Daily, First dose on Sun05/27/24 at 1730, Nursing staff to perform dressing change: Perineum: Jhoan's Gangrene/Necrotizing infection S/P surgical debridement -cleanse with NS, apply santyl followed by Dakin's moist to dry, cover with dry clean dressing daily and PRN. -Envella bed 0900 (Canceled Entry - Provider: Automatic Discharge Provider - Comment: Automatically canceled at discontinue of medication order) 1031 (Given - Provider: Danny Patterson, RN) 1252 (Given - Provider: Rajwinder Palacios RN) vancomycin IVPB 1500 mg in 250 mL NS (premix) (CANCELED) 1,500 mg, IntraVENous, at 125 mL/hr, Administer over 120 Minutes, Every 12 hours, First dose on Mimi 05/22/24 at 0500, premix bag, Suspected Indication (Select all that apply): Skin and Soft Tissue Infection 0443 (New Bag - Provider: Jasiel Campbell, TREVER)0643 (Due: Stopped - Provider: Jasiel Campbell, TREVER) PRN Medication Order 05/28/2024 05/29/2024 05/30/2024 acetaminophen (Tylenol) tablet 650 mg 650 mg, Oral, Every 4 hours PRN, mild pain (1-3), moderate pain (4-6), severe pain (7-10), Starting on Sun05/21/24 at 2153, Give in addition to any other pain medication ordered at same time for any pain indication. collagenase 250 UNIT/GM ointment Topical, PRN, Wound care, Starting on Sun05/27/24 at 1639, Nursing staff to perform dressing change: Perineum: Jhoan's Gangrene/Necrotizing infection S/P surgical debridement -cleanse with NS, apply santyl followed by Dakin's moist to dry, cover with dry clean dressing daily and PRN. -Envella bed dextrose 5 % infusion 100 mL/hr, IntraVENous, PRN, Blood sugar less than 70mg/dL, Starting on Sun05/21/24 at 2315, Start infusion following administration of dextrose 50% or glucagon. dextrose 50 % solution 12.5 g 12.5 g, IntraVENous, PRN, low blood sugar, Blood glucose less than 70 mg/dL and patient NOT ALERT or NPO., Starting on Sun05/21/24 at 2315, If patient does not respond within 5 minutes, repeat dose x1. Start D5W at 100 mL/hour until ordering provider can be reached. Repeat blood glucose in 15 minutes. If blood glucose is less than 70 mg/dL, repeat treatment and recheck blood glucose in 15 minutes x2. If using Glucostabilizer, dose as instructed per system. glucagon (human recombinant) injection 1 mg 1 mg, IntraMUSCular, PRN, low blood sugar, Blood glucose less than 70 mg/dL and patient NOT ALERT or NPO and does not have IV access., Starting on Sun05/21/24 at 2315, After administration, attempt intravenous access and start D5W at 100 mL/hr. Repeat blood glucose in 15 minutes x2 and notify provider. glucose oral gel 15 g 15 g, Oral, As needed, low blood sugar, Starting on Sun05/21/24 at 2315, If blood glucose less than 50 mg/dL and patient ALERT and NOT NPO, give 2 tubes glucose gel. If blood glucose less than 70 mg/dL and patient ALERT and NOT NPO, give 1 tube glucose gel. Repeat blood glucose in 15 minutes. If blood glucose is less than 70 mg/dL, repeat treatment and recheck blood glucose in 15 minutes x2 and notify provider. hydrOXYzine pamoate (Vistaril) capsule 25 mg 25 mg, Oral, Every 8 hours PRN, itching, Starting on Sun05/25/24 at 1537 morphine injection 2 mg(Linked Group 3) 2 mg, IntraVENous, Every 2 hour PRN, moderate pain (4-6), Starting on Sun05/21/24 at 2153, If oral and IV narcotics ordered, use oral first and only use IV if oral is ineffective or cannot take oral. Do Not give oral and IV within 1 hour of each other unless specifically ordered. morphine injection 4 mg(Linked Group 3) 4 mg, IntraVENous, Every 2 hour PRN, severe pain (7-10), Starting on Sun05/21/24 at 2153, If oral and IV narcotics ordered, use oral first and only use IV if oral is ineffective or cannot take oral. Do Not give oral and IV within 1 hour of each other unless specifically ordered. naloxone (Narcan) injection 0.4 mg 0.4 mg, IntraVENous, Every 5 min PRN, opioid reversal, respiratory depression, Starting on Sun05/21/24 at 2154, +++ For RR <10, pinpoint pupils, over sedation for opioid reversal - MUST notify power plant operations manager provider immediately after first dose, may give IM or SQ if no IV access +++ ondansetron (Zofran) injection 4 mg(Linked Group 4) 4 mg, IntraVENous, Every 6 hours PRN, nausea, vomiting, Starting on Sun05/21/24 at 2150, 1st Line. Give IV if patient is unable to take orally. If inadequate response within 60 minutes, proceed to next-line agent or contact provider if no further options ordered. ondansetron ODT (Zofran-ODT) disintegrating tablet 4 mg(Linked Group 4) 4 mg, Oral, Every 8 hours PRN, nausea, vomiting, Starting on Sun05/21/24 at 2150, 1st Line. If inadequate response within 60 minutes, proceed to next-line agent or contact provider if no further options ordered. Patient should allow tablet to dissolve on tongue. Do not remove from blister pack until just before administering. oxyCODONE (Roxicodone) immediate release tablet 10 mg(Linked Group 5) 10 mg, Oral, Every 4 hours PRN, severe pain (7-10), Starting on Sun05/21/24 at 2153 0442 (See Alternative - Provider: Jasiel Campbell, TREVER) oxyCODONE (Roxicodone) immediate release tablet 5 mg(Linked Group 5) 5 mg, Oral, Every 4 hours PRN, moderate pain (4-6), Starting on Sun05/21/24 at 2153 0442 (Given - Provider: Jasiel Campbell, TREVER) potassium chloride (Klor-Con) packet 20 mEq(Linked Group 6) 20 mEq, Oral, PRN, Per Potassium Replacement Protocol, Starting on Sun05/21/24 at 2316, May give linked alternative if patient unable to tolerate oral formulation. K Lab Replacement Action 3.6 to 5 20 mEq ORAL x 1 2.7 to 3.5 40 meq ORAL x 1 Under 2.7 60 meq ORAL x 1 Protocol not for use in patients with CrCl less than 30 mL/min. Dissolve each packet in 4 ounces of water = 5 mEq per 1 oz fluid. potassium chloride (Klor-Con) packet 40 mEq(Linked Group 6) 40 mEq, Oral, PRN, Per Potassium Replacement Protocol, Starting on Sun05/21/24 at 2316, May give linked alternative if patient unable to tolerate oral formulation. K Lab Replacement Action 3.6 to 5 20 mEq ORAL x 1 2.7 to 3.5 40 meq ORAL x 1 Under 2.7 60 meq ORAL x 1 Protocol not for use in patients with CrCl less than 30 mL/min. Dissolve each packet in 4 ounces of water = 5 mEq per 1 oz fluid. potassium chloride (Klor-Con) packet 60 mEq(Linked Group 6) 60 mEq, Oral, PRN, Per Potassium Replacement Protocol, Starting on Sun05/21/24 at 2316, May give linked alternative if patient unable to tolerate oral formulation. K Lab Replacement Action 3.6 to 5 20 mEq ORAL x 1 2.7 to 3.5 40 meq ORAL x 1 Under 2.7 60 meq ORAL x 1 Protocol not for use in patients with CrCl less than 30 mL/min. Dissolve each packet in 4 ounces of water = 5 mEq per 1 oz fluid. potassium chloride CR (Klor-Con M10) ER tablet 20 mEq(Linked Group 6) 20 mEq, Oral, PRN, Per Potassium Replacement Protocol, Starting on Sun05/21/24 at 2316, May give linked alternative if patient unable to tolerate oral formulation. K Lab Replacement Action 3.6 to 5 20 mEq ORAL x 1 2.7 to 3.5 40 meq ORAL x 1 Under 2.7 60 meq ORAL x 1 Protocol not for use in patients with CrCl less than 30 mL/min. Do not crush or chew. potassium chloride CR (Klor-Con M10) ER tablet 40 mEq(Linked Group 6) 40 mEq, Oral, PRN, Per Potassium Replacement Protocol, Starting on Sun05/21/24 at 2316, May give linked alternative if patient unable to tolerate oral formulation. K Lab Replacement Action 3.6 to 5 20 mEq ORAL x 1 2.7 to 3.5 40 meq ORAL x 1 Under 2.7 60 meq ORAL x 1 Protocol not for use in patients with CrCl less than 30 mL/min. Do not crush or chew. potassium chloride CR (Klor-Con M10) ER tablet 60 mEq(Linked Group 6) 60 mEq, Oral, PRN, Per Potassium Replacement Protocol, Starting on Sun05/21/24 at 2316, May give linked alternative if patient unable to tolerate oral formulation. K Lab Replacement Action 3.6 to 5 20 mEq ORAL x 1 2.7 to 3.5 40 meq ORAL x 1 Under 2.7 60 meq ORAL x 1 Protocol not for use in patients with CrCl less than 30 mL/min. Do not crush or chew. potassium chloride IVPB 10 mEq(Linked Group 6) 10 mEq, IntraVENous, at 100 mL/hr, Administer over 1 Hours, PRN, Per Potassium Replacement Protocol, Starting on Sun05/21/24 at 2316, For Peripheral Line Use: K Lab Replacement Action 3.6 to 5 10 mEq IVPB x 2 doses (20 mEq Total) 2.7 to 3.5 10 mEq IVPB x 4 doses (40 mEq Total) Under 2.7 10 mEq IVPB x 6 doses (60 mEq Total) Infuse at 10 mEq/hr Repeat Potassium lab 1 hour after final administration. Protocol not for use in Patients with CrCl less than 30mL/min sodium chloride 0.9 % infusion 5-250 mL/hr, IntraVENous, PRN, if patient receiving piggyback infusions and maintenance fluids are not ordered OR KVO fluids to protect IV site / prevent frequent line interruptions/ long duration, Starting on Sun05/22/24 at 1301, For piggyback infusion, administer at same rate as piggyback for a total of 25 mL. Enter 25 mL into dose field and piggyback rate into rate field of order. If piggyback is infusing at a rate less than 100 mL/hr, enter 25 mL into dose field and 100 mL/hr into rate field of order. For KVO fluids, enter rate of 20 mL/hr or less into rate field of order. sodium chloride 0.9% (NS) flush 10 mL 10 mL, IntraVENous, PRN, line care, Starting on Sun05/22/24 at 1301, After every IV line use sodium chloride 0.9% (NS) flush 10 mL 10 mL, IntraCATHeter, PRN, line care, before blood draws, before and after infusion or medication administration, Starting on Sun05/27/24 at 0950, Use 10 mL or larger syringe. sodium hypochlorite (Dakin's (HALF-Strength)) 0.25 % external solution Irrigation, As needed, wound care, Starting on Sun05/27/24 at 1641, Nursing staff to perform dressing change: Perineum: Jhoan's Gangrene/Necrotizing infection S/P surgical debridement -cleanse with NS, apply santyl followed by Dakin's moist to dry, cover with dry clean dressing daily and PRN. -Envella bed Linked Groups Order Group 1: Insulin Lispro (Humalog) injection 0-12 UnitsJump to med 0-12 Units, SubCUTAneous, 3 times daily with meals, First dose on Sun05/29/24 at 1215, Medium Dose Correction Algorithm Glucose: Dose: LESS than 150 No Insulin 150-199 2 Units 200-249 4 Units 250-299 6 Units 300-349 8 Units 350-400 10 Units Above 400 12 Units And Insulin Lispro (Humalog) injection 0-12 UnitsJump to med 0-12 Units, SubCUTAneous, Nightly, First dose on Sun05/29/24 at 2100, If eating or bolus tube feeding: Medium Dose Correction Algorithm Glucose: Dose: LESS than 150 No Insulin 150-199 2 Units 200-249 4 Units 250-299 6 Units 300-349 8 Units 350- 400 10 Units Above 400 12 Units Group 2: Insulin Lispro (Humalog) injection 0-6 Units (CANCELED)Jump to med 0-6 Units, SubCUTAneous, Every 6 hours, First dose on Sun05/22/24 at 1200, Low Dose Correction Algorithm Glucose: Dose: LESS than 150 No Insulin 150-199 1 Unit 200-249 2 Units 250-299 3 Units 300-349 4 Units 350-400 5 Units Above 400 6 Units And Insulin Lispro (Humalog) injection 0-6 Units (CANCELED)Jump to med 0-6 Units, SubCUTAneous, Nightly, First dose on Sun05/22/24 at 2100, If eating or bolus tube feeding: Low Dose Correction Algorithm Glucose: Dose: LESS than 150 No Insulin 150-199 1 Unit 200-249 2 Units 250-299 3 Units 300-349 4 Units 350-400 5 Units Above 400 6 Units Group 3: morphine injection 2 mgJump to med 2 mg, IntraVENous, Every 2 hour PRN, moderate pain (4-6), Starting on Sun05/21/24 at 2153, If oral and IV narcotics ordered, use oral first and only use IV if oral is ineffective or cannot take oral. Do Not give oral and IV within 1 hour of each other unless specifically ordered. Or morphine injection 4 mgJump to med 4 mg, IntraVENous, Every 2 hour PRN, severe pain (7-10), Starting on Sun05/21/24 at 2153, If oral and IV narcotics ordered, use oral first and only use IV if oral is ineffective or cannot take oral. Do Not give oral and IV within 1 hour of each other unless specifically ordered. Group 4: ondansetron ODT (Zofran-ODT) disintegrating tablet 4 mgJump to med 4 mg, Oral, Every 8 hours PRN, nausea, vomiting, Starting on Sun05/21/24 at 2150, 1st Line. If inadequate response within 60 minutes, proceed to next-line agent or contact provider if no further options ordered. Patient should allow tablet to dissolve on tongue. Do not remove from blister pack until just before administering. Or ondansetron (Zofran) injection 4 mgJump to med 4 mg, IntraVENous, Every 6 hours PRN, nausea, vomiting, Starting on Sun05/21/24 at 2150, 1st Line. Give IV if patient is unable to take orally. If inadequate response within 60 minutes, proceed to next-line agent or contact provider if no further options ordered. Group 5: oxyCODONE (Roxicodone) immediate release tablet 5 mgJump to med 5 mg, Oral, Every 4 hours PRN, moderate pain (4-6), Starting on Sun05/21/24 at 2153 Or oxyCODONE (Roxicodone) immediate release tablet 10 mgJump to med 10 mg, Oral, Every 4 hours PRN, severe pain (7-10), Starting on Sun05/21/24 at 2153 Group 6: potassium chloride CR (Klor-Con M10) ER tablet 20 mEqJump to med 20 mEq, Oral, PRN, Per Potassium Replacement Protocol, Starting on Sun05/21/24 at 2316, May give linked alternative if patient unable to tolerate oral formulation. K Lab Replacement Action 3.6 to 5 20 mEq ORAL x 1 2.7 to 3.5 40 meq ORAL x 1 Under 2.7 60 meq ORAL x 1 Protocol not for use in patients with CrCl less than 30 mL/min. Do not crush or chew. Or potassium chloride CR (Klor-Con M10) ER tablet 40 mEqJump to med 40 mEq, Oral, PRN, Per Potassium Replacement Protocol, Starting on Sun05/21/24 at 2316, May give linked alternative if patient unable to tolerate oral formulation. K Lab Replacement Action 3.6 to 5 20 mEq ORAL x 1 2.7 to 3.5 40 meq ORAL x 1 Under 2.7 60 meq ORAL x 1 Protocol not for use in patients with CrCl less than 30 mL/min. Do not crush or chew. Or potassium chloride CR (Klor-Con M10) ER tablet 60 mEqJump to med 60 mEq, Oral, PRN, Per Potassium Replacement Protocol, Starting on Sun05/21/24 at 2316, May give linked alternative if patient unable to tolerate oral formulation. K Lab Replacement Action 3.6 to 5 20 mEq ORAL x 1 2.7 to 3.5 40 meq ORAL x 1 Under 2.7 60 meq ORAL x 1 Protocol not for use in patients with CrCl less than 30 mL/min. Do not crush or chew. Or potassium chloride (Klor-Con) packet 20 mEqJump to med 20 mEq, Oral, PRN, Per Potassium Replacement Protocol, Starting on Sun05/21/24 at 2316, May give linked alternative if patient unable to tolerate oral formulation. K Lab Replacement Action 3.6 to 5 20 mEq ORAL x 1 2.7 to 3.5 40 meq ORAL x 1 Under 2.7 60 meq ORAL x 1 Protocol not for use in patients with CrCl less than 30 mL/min. Dissolve each packet in 4 ounces of water = 5 mEq per 1 oz fluid. Or potassium chloride (Klor-Con) packet 40 mEqJump to med 40 mEq, Oral, PRN, Per Potassium Replacement Protocol, Starting on Sun05/21/24 at 2316, May give linked alternative if patient unable to tolerate oral formulation. K Lab Replacement Action 3.6 to 5 20 mEq ORAL x 1 2.7 to 3.5 40 meq ORAL x 1 Under 2.7 60 meq ORAL x 1 Protocol not for use in patients with CrCl less than 30 mL/min. Dissolve each packet in 4 ounces of water = 5 mEq per 1 oz fluid. Or potassium chloride (Klor-Con) packet 60 mEqJump to med 60 mEq, Oral, PRN, Per Potassium Replacement Protocol, Starting on Sun05/21/24 at 2316, May give linked alternative if patient unable to tolerate oral formulation. K Lab Replacement Action 3.6 to 5 20 mEq ORAL x 1 2.7 to 3.5 40 meq ORAL x 1 Under 2.7 60 meq ORAL x 1 Protocol not for use in patients with CrCl less than 30 mL/min. Dissolve each packet in 4 ounces of water = 5 mEq per 1 oz fluid. Or potassium chloride IVPB 10 mEqJump to med 10 mEq, IntraVENous, at 100 mL/hr, Administer over 1 Hours, PRN, Per Potassium Replacement Protocol, Starting on Sun05/21/24 at 2316, For Peripheral Line Use: K Lab Replacement Action 3.6 to 5 10 mEq IVPB x 2 doses (20 mEq Total) 2.7 to 3.5 10 mEq IVPB x 4 doses (40 mEq Total) Under 2.7 10 mEq IVPB x 6 doses (60 mEq Total) Infuse at 10 mEq/hr Repeat Potassium lab 1 hour after final administration. Protocol not for use in Patients with CrCl less than 30mL/min Scheduled Medication Order 06/04/2024 06/05/2024 06/06/2024 cefepime (Maxipime) 2 g in sodium chloride 0.9 % 50 mL IVPB Mini-Bag Plus (COMPLETED)(Linked Group 1) 2 g, IntraVENous, at 100 mL/hr, Administer over 30 Minutes, Once, On Sun06/04/24 at 1600, For 1 dose, Mini-Bag Plus bag, Suspected Indication (Select all that apply): Skin and Soft Tissue Infection 1906 (New Bag - Provider: Nevin Perez RN)2123 (Stopped - Provider: Milagro Andrea RN) clindamycin in D5W (Cleocin) IVPB 600 mg (CANCELED) 600 mg, IntraVENous, at 100 mL/hr, Administer over 30 Minutes, Every 8 hours, First dose on Sun06/04/24 at 2100, premix bag, Suspected Indication (Select all that apply): Skin and Soft Tissue Infection 2313 (New Bag - Provider: Sylvain Nava RN)2344 (Stopped - Provider: Jessie García RN) 0631 (New Bag - Provider: Jessie García RN)0701 (Stopped - Provider: Debbie Urrutia RN)1521 (New Bag - Provider: Debbie Urrutia RN)1551 (Stopped - Provider: Debbie Urrutia RN)2033 (New Bag - Provider: Hallie Bhatti, RN)2103 (Stopped - Provider: Hallie Bhatti, TREVER) 0428 (New Bag - Provider: Hallie Bhatti, RN)0458 (Stopped - Provider: Hallie Bhatti, RN)1300 (Canceled Entry - Provider: Dahlia Jay RN) collagenase 250 UNIT/GM ointment Topical, Daily, First dose on Sun06/05/24 at 1115, Nursing staff to perform dressing change: Perineum: NHSW (infection) - Cleanse with Dakins. Apply Santyl to wound bed. Lightly pack with Dakins moist gauze. Cover with ABD pads and mesh underwear. Change daily and PRN. 1999 (Given - Provider: Hallie Bhatti RN) 0900 (Not Given - Provider: Dahlia Jay RN - Reason: Other) enoxaparin (Lovenox) syringe 40 mg 40 mg, SubCUTAneous, Every 24 hours scheduled (Daily), First dose on Sun06/05/24 at 1200, Indication of Use: Prophylaxis-DVT/PE, Indications: Prophylaxis of Venous Thromboembolism 1520 (Given - Provider: Debbie Urrutia RN) 1116 (Given - Provider: Dahlia Jay RN - Comment: workload) Insulin Lispro (Humalog) injection 0-12 Units 0-12 Units, SubCUTAneous, 4 times daily before meals & nightly, First dose (after last modification) on Sun06/06/24 at 0800, Medium Dose Correction Algorithm Glucose: Dose: LESS than 150 No Insulin 150-199 2 Units 200-249 4 Units 250-299 6 Units 300-349 8 Units 350-400 10 Units Above 400 12 Units 1116 (Given - Provider: Dahlia Jay RN - Comment: workload)1235 (Given - Provider: Dahlia Jay RN)1715 (Given - Provider: Dahlia Jay RN)2100 (Canceled Entry - Provider: Automatic Discharge Provider - Comment: Automatically canceled at discontinue of medication order) nystatin (Mycostatin) 869169 UNIT/ML suspension 500,000 Units 500,000 Units (5 mL), Swish & Swallow, 3 times daily, First dose on Mimi 06/05/24 at 0930 1022 (Given - Provider: Debbie Urrutia RN)1520 (Given - Provider: Debbie Urrutia RN)2038 (Given - Provider: Hallie Bhatti, TREVER) 1116 (Given - Provider: Dahlia Jay, TREVER - Comment: workload)1715 (Given - Provider: Dahlia Jay, TREVER)2100 (Canceled Entry - Provider: Automatic Discharge Provider - Comment: Automatically canceled at discontinue of medication order) piperacillin-tazobactam (Zosyn) IVPB 4,500 mg 4,500 mg, IntraVENous, at 200 mL/hr, Administer over 0.5 Hours, Every 6 hours, First dose on Sun06/04/24 at 2300, premix bag, Suspected Indication (Select all that apply): Skin and Soft Tissue Infection 2355 (New Bag - Provider: Jessie García RN) 0025 (Stopped - Provider: Jessie García RN)0538 (New Bag - Provider: Jessie García RN)0608 (Stopped - Provider: Jessie García RN)1520 (New Bag - Provider: Debbie Urrutia RN)1550 (Stopped - Provider: Debbie Urrutia RN)2000 (New Bag - Provider: Hallie Bhatti, TREVER)2030 (Stopped - Provider: Hallie Bhatti, TREVER) 0025 (New Bag - Provider: Hallie Bhatti RN)0055 (Stopped - Provider: Hallie Bhatti, TREVER)0527 (New Bag - Provider: Hallie Bhatti RN)0557 (Stopped - Provider: Hallie Bhatti, RN)1137 (New Bag - Provider: Dahlia Jay, TREVER)1207 (Stopped - Provider: Dahlia Jay, TREVER)1800 (Canceled Entry - Provider: Automatic Discharge Provider - Comment: Automatically canceled at discontinue of medication order) sodium chloride 0.9 % bolus 1,000 mL (COMPLETED) 1,000 mL, IntraVENous, at 1,000 mL/hr, Administer over 1 Hours, Once, On Sun06/04/24 at 1610, For 1 dose 1743 (New Bag - Provider: Nevin Perez, RN)1843 (Stopped - Provider: Nevin Perez, TREVER) sodium chloride 0.9% (NS) flush 5-40 mL 5-40 mL, IntraVENous, Every 12 hours, First dose on Sun06/04/24 at 2045, For Line Patency: Peripheral IV = 5 mL; Midline or Central Line = 10 mL/lumen. If following IV push medication, administer flush at same rate as the IV push. Flush volume is determined by type of infusion therapy being given. For non-viscous solutions use: Peripheral IV = 5 mL Midline or Central Line = 10 mL/lumen For viscous solutions (i.e. blood components, parenteral nutrition, contrast media, or after obtaining blood sample) use: Peripheral IV = 10 mL Midline or Central Line = 20 mL/lumen 2044 (Canceled Entry - Provider: Automatic Discharge Provider - Comment: Automatically canceled at discontinue of medication order) 1006 (Given - Provider: Debbie Urrutia RN)1948 (Given - Provider: Hallie Bhatti RN) 0845 (Given - Provider: Dahlia Jay RN)2044 (Canceled Entry - Provider: Automatic Discharge Provider - Comment: Automatically canceled at discontinue of medication order) sodium hypochlorite (Dakin's (HALF-Strength)) 0.25 % external solution Topical, Daily, First dose (after last modification) on Sun06/05/24 at 1645, Nursing staff to perform dressing change: Perineum: NHSW (infection) - Cleanse with Dakins. Apply Santyl to wound bed. Lightly pack with Dakins moist gauze. Cover with ABD pads and mesh underwear. Change daily and PRN. 2099 (Not Given - Provider: Hallie Bhatti RN - Reason: Other - Comment: duplicate order) 0900 (Not Given - Provider: Dahlia Jay RN - Reason: Other) sodium hypochlorite (Dakins 1/4 strength) external solution Irrigation, 2 times daily, First dose on Sun06/05/24 at 2100 1999 (Given - Provider: Hallie Bhatti RN) 0900 (Not Given - Provider: Dahlia Jay RN - Reason: Other - Comment: drsg change once/day)2099 (Canceled Entry - Provider: Automatic Discharge Provider - Comment: Automatically canceled at discontinue of medication order) vancomycin in NS (Vancocin) IVPB 2,000 mg (COMPLETED)(Linked Group 1) 2,000 mg (rounded from 1,876.8 mg = 23 mg/kg 81.6 kg), IntraVENous, at 250 mL/hr, Administer over 120 Minutes, Once, On Sun06/04/24 at 1600, For 1 dose, premix bag, Suspected Indication (Select all that apply): Skin and Soft Tissue Infection 0229 (New Bag - Provider: Jessie García RN - Comment: med room)0429 (Stopped - Provider: Jessie García, RN) vancomycin IVPB 1250 mg in 250 mL NS (premix) (CANCELED) 1,250 mg, IntraVENous, at 166.7 mL/hr, Administer over 90 Minutes, Every 8 hours, First dose (after last reorder) on Mimi 06/05/24 at 1030, premix bag, Suspected Indication (Select all that apply): Skin and Soft Tissue Infection 1007 (New Bag - Provider: Debbie Urrutia RN)1137 (Stopped - Provider: Debbie Urrutia RN) vancomycin IVPB 1250 mg in 250 mL NS (premix) 1,250 mg, IntraVENous, at 166.7 mL/hr, Administer over 90 Minutes, Every 12 hours, First dose (after last modification) on Mimi 06/05/24 at 2200, premix bag, Suspected Indication (Select all that apply): Skin and Soft Tissue Infection 2109 (New Bag - Provider: Hallie Bhatti RN)2239 (Stopped - Provider: Hallie Bhatti RN) 1233 (New Bag - Provider: Dahlia Jay, TREVER - Comment: loss of iv access)1403 (Stopped - Provider: Dahlia Jay, TREVER)2200 (Canceled Entry - Provider: Automatic Discharge Provider - Comment: Automatically canceled at discontinue of medication order) Continuous Medication Order 06/04/2024 06/05/2024 06/06/2024 LR (CANCELED) 75 mL/hr, IntraVENous, Continuous, Starting on Sun06/05/24 at 0000 2352 (New Bag - Provider: Jessie García RN) 1537 (New Bag - Provider: Debbie Urrutia, TREVER)2310 (Rate/Dose Verify - Provider: Hallie Bhatti, RN) 0532 (New Bag - Provider: Hallie Bhatti RN)1138 (Stopped - Provider: Dahlia Jay RN) PRN Medication Order 06/04/2024 06/05/2024 06/06/2024 acetaminophen (Tylenol) tablet 650 mg 650 mg, Oral, Every 4 hours PRN, moderate pain (4-6), headaches, Starting on Sun06/04/24 at 2043, Maximum dose of acetaminophen is 4000 mg from all sources in 24 hours. 1022 (Given - Provider: Debbie Urrutia RN)1522 (Given - Provider: Debbie Urrutia RN)2108 (Given - Provider: Hallie Bhatti RN) 0114 (Given - Provider: Hallie Bhatti RN)0527 (Given - Provider: Hallie Bhatti RN) dextrose 5 % infusion 100 mL/hr, IntraVENous, PRN, Blood sugar less than 70mg/dL, Starting on Sun06/04/24 at 2043, Start infusion following administration of dextrose 50% or glucagon. dextrose 50 % solution 12.5 g 12.5 g, IntraVENous, PRN, low blood sugar, Blood glucose less than 70 mg/dL and patient NOT ALERT or NPO., Starting on Sun06/04/24 at 2043, If patient does not respond within 5 minutes, repeat dose x1. Start D5W at 100 mL/hour until ordering provider can be reached. Repeat blood glucose in 15 minutes. If blood glucose is less than 70 mg/dL, repeat treatment and recheck blood glucose in 15 minutes x2. If using Glucostabilizer, dose as instructed per system. fentaNYL (Sublimaze) injection (COMPLETED) IntraVENous, As needed, Starting on Mimi 06/05/24 at 1332, Intraprocedure 1332 (Given - Provider: Corie Kramer RN) glucagon (human recombinant) injection 1 mg 1 mg, IntraMUSCular, PRN, low blood sugar, Blood glucose less than 70 mg/dL and patient NOT ALERT or NPO and does not have IV access., Starting on Sun06/04/24 at 2043, After administration, attempt intravenous access and start D5W at 100 mL/hr. Repeat blood glucose in 15 minutes x2 and notify provider. glucose oral gel 15 g 15 g, Oral, As needed, low blood sugar, Starting on Sun06/04/24 at 2043, If blood glucose less than 50 mg/dL and patient ALERT and NOT NPO, give 2 tubes glucose gel. If blood glucose less than 70 mg/dL and patient ALERT and NOT NPO, give 1 tube glucose gel. Repeat blood glucose in 15 minutes. If blood glucose is less than 70 mg/dL, repeat treatment and recheck blood glucose in 15 minutes x2 and notify provider. hydrOXYzine pamoate (Vistaril) capsule 25 mg 25 mg, Oral, Every 8 hours PRN, itching, Starting on Sun06/04/24 at 2043 iopamidol (Isovue-370) 76 % injection 75 mL (COMPLETED) 75 mL, IntraVENous, IMG once PRN, contrast, Starting on Sun06/04/24 at 1848, For 1 dose 1848 (Given - Provider: Андрей Peng, RT (R)) midazolam (Versed) injection (COMPLETED) IntraVENous, As needed, Starting on Mimi 06/05/24 at 1332, Intraprocedure 1332 (Given - Provider: Corie Kramer, RN) naloxone (Narcan) injection 0.4 mg 0.4 mg, IntraVENous, Every 5 min PRN, opioid reversal, respiratory depression, Starting on Sun06/04/24 at 2032, +++ For RR <10, pinpoint pupils, over sedation for opioid reversal - 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 Give IV if patient is unable to take orally. If inadequate response within 60 minutes, proceed to next-line agent or contact provider if no further options ordered. ondansetron ODT (Zofran-ODT) disintegrating tablet 4 mg(Linked Group 2) 4 mg, Oral, Every 8 hours PRN, nausea, vomiting, Starting on Sun06/04/24 at 2043, 1st Line. If inadequate response within 60 minutes, proceed to next-line agent or contact provider if no further options ordered. Patient should allow tablet to dissolve on tongue. Do not remove from blister pack until just before administering. oxyCODONE (Roxicodone) immediate release tablet 5 mg 5 mg, Oral, Every 6 hours PRN, severe pain (7-10), Starting on Mimi 06/05/24 at 0856 1022 (Given - Provider: Debbie Urrutia, RN)1948 (Given - Provider: Hallie Bhatti RN) polyethylene glycol (PEG) 3350 (Miralax) packet 17 g 17 g, Oral, Daily PRN, constipation, Starting on 06/04/24 at 4, 1st line for treatment of constipation - give scheduled if no bowel movement in past 24 hours. sodium chloride 0.9 % infusion 5-250 mL/hr, IntraVENous, PRN, if patient receiving piggyback infusions and maintenance fluids are not ordered OR KVO fluids to protect IV site / prevent frequent line interruptions / long duration, Starting on 06/04/24 at 2043, For piggyback infusion, administer at same rate as piggyback for a total of 25 mL. Enter 25 mL into dose field and piggyback rate into rate field of order. If piggyback is infusing at a rate less than 100 mL/hr, enter 25 mL into dose field and 100 mL/hr into rate field of order. For KVO fluids, enter rate of 20 mL/hr or less into rate field of order. sodium chloride 0.9% (NS) flush 5-40 mL 5-40 mL, IntraVENous, PRN, line care, After every IV line use, Starting on 06/04/24 at 2043, For Line Patency: Peripheral IV = 5 mL; Midline or Central Line = 10 mL/lumen. If following IV push medication, administer flush at same rate as the IV push. Flush volume is determined by type of infusion therapy being given. For non-viscous solutions use: Peripheral IV = 5 mL Midline or Central Line = 10 mL/lumen For viscous solutions (i.e. blood components, parenteral nutrition, contrast media, or after obtaining blood sample) use: Peripheral IV = 10 mL Midline or Central Line = 20 mL/lumen Linked Groups Order Group 1: cefepime (Maxipime) 2 g in sodium chloride 0.9 % 50 mL IVPB Mini-Bag Plus (COMPLETED)Jump to med 2 g, IntraVENous, at 100 mL/hr, Administer over 30 Minutes, Once, On Sun06/04/24 at 1600, For 1 dose, Mini-Bag Plus bag, Suspected Indication (Select all that apply): Skin and Soft Tissue Infection And vancomycin in NS (Vancocin) IVPB 2,000 mg (COMPLETED)Jump to med 2,000 mg (rounded from 1,876.8 mg = 23 mg/kg 81.6 kg), IntraVENous, at 250 mL/hr, Administer over 120 Minutes, Once, On Sun06/04/24 at 1600, For 1 dose, premix bag, Suspected Indication (Select all that apply): Skin and Soft Tissue Infection Group 2: ondansetron ODT (Zofran-ODT) disintegrating tablet 4 mgJump to med 4 mg, Oral, Every 8 hours PRN, nausea, vomiting, Starting on Sun06/04/24 at 2044, 1st Line. If inadequate response within 60 minutes, proceed to next-line agent or contact provider if no further options ordered. Patient should allow tablet to dissolve on tongue. Do not remove from blister pack until just before administering. Or ondansetron (Zofran) injection 4 mgJump to med 4 mg, IntraVENous, Every 6 hours PRN, nausea, vomiting, Starting on Sun06/04/24 at 2044, 1st Line. Give IV if patient is unable to take orally. If inadequate response within 60 minutes, proceed to next-line agent or contact provider if no further options ordered. Care Teams (unrecognized sec tion and content) Waredresser Relationship Specialty Start Date End Date Eric Sun MD [address] [place] [id number] PCP - General Family Medicine 11/22/20 Waredresser Relationship Specialty Start Date End Date Stephanie Anton MD [address] [place] [id number] PCP - General 09/14/21 Waredresser Relationship Specialty Start Date End Date Triston Bal MD [address] [facility] [address] [place] [address] Surgeon Urology 05/21/24 Waredresser Relationship Specialty Start Date End Date Triston Bal MD [address] [place] [address] Surgeon Urology 05/21/24 Waredresser Relationship Specialty Start Date End Date Triston Bal MD [address] [place] [address] Surgeon Urology 05/21/24 Liseth Belle DO [address] [place] [address] Surgeon Urology 06/02/24 Waredresser Relationship Specialty Start Date End Date Triston Bal MD [address] [place] [address] Surgeon Urology 05/21/24 Liseth Belle DO [address] [place] [address] Surgeon Urology 06/02/24 Waredresser Relationship Specialty Start Date End Date Triston Bal MD [address] [place] [address] Surgeon Urology 05/21/24 Liseth Belle DO [address] [place] [address] Surgeon Urology 06/02/24 Waredresser Relationship Specialty Start Date End Date Triston Bal MD [address] [place] [address] Surgeon Urology 05/21/24 Liseth Belle DO [address] [place] [address] Surgeon Urology 06/02/24 Waredresser Relationship Specialty Start Date End Date Triston Bal MD [address] [place] [address] Surgeon Urology 05/21/24 Liseth Belle DO [address] [place] [address] Surgeon Urology 06/02/24 Waredresser Relationship Specialty Start Date End Date Triston Bal MD [address] [place] [address] Surgeon Urology 05/21/24 Liseth Belle DO [address] [place] [address] Surgeon Urology 06/02/24 Waredresser Relationship Specialty Start Date End Date Triston Bal MD [address] [place] [address] Surgeon Urology 05/21/24 Liseth Belle DO [address] [place] [address] Surgeon Urology 06/02/24 Waredresser Relationship Specialty Start Date End Date Triston Bal MD [address] [place] [address] Surgeon Urology 05/21/24 Liseth Belle DO [address] [place] [address] Surgeon Urology 06/02/24 Waredresser Relationship Specialty Start Date End Date Triston Bal MD [address] [place] [address] Surgeon Urology 05/21/24 Liseth Belle DO [address] [place] [address] Surgeon Urology 06/02/24 (unrecognized sect ion and content) No Status Records FoundNo Status Records FoundNo Status Records Found INFORMATION SOURCE (unrecogn ized section and content) DATE CREATED AUTHOR 10/17/2021 [facility] [employer] DATE CREATED AUTHOR AUTHOR'S ORGANIZ ATION 11/20/2024 [facility] [employer] [facility] DATE CREATED AUTHOR AUTHOR'S ORGANIZ ATION 12/18/2024 [facility] FOR RECORDS PERTAINING TO PATIENTS WHO ARE OR HAVE BEEN ENROLLED IN A CHEMICAL DEPENDENCY/SUBSTANCEABUSE PROGRAM, SOME INFORMATION MAY BE OMITTED. This clinical summary was aggregated from multiple sources. Caution should be exercised in using it in the provision of clinical care. This summary normalizes information from multiple sources, and as a consequence, information in this document may materially change the coding, format and clinical context of patient data. In addition, data may be omitted in some cases. CLINICAL DECISIONS SHOULD BE BASED ON THE PRIMARY CLINICAL RECORDS. [employer] [facility]. provides no warranty or guarantee of the accuracy or completeness of information in this document.
[2025-01-08 09:21] LABS: Hematocrit 32.4 % (40-54); Hemoglobin 11.0 g/dL (13.0-16.5); Mean Corp Hgb Conc 34.0 g/dL (32-36); Mean Corpuscular Volume 81.6 fL (80-94); Mean Platelet Vol. 10.3 fl (6.2-12.0); POSITIVE COUNT YES; RBC Distribution Width CV 15.0 % (11.6-14.6); RBC Distribution Width SD 43.5 fl (35.1-43.9); Red Blood Count 3.97 M/mm3 (4.6-6.2); White Blood Count 4.8 K/mm3 (4.4-11.0)
[2025-01-08 09:36] LABS: Anion Gap 10 (5-15); BUN 38 mg/dL (4-19); BUN/Creat Ratio 36.6 RATIO (10-20); Calcium,Total 9.0 mg/dL (7.6-11.0); Carbon Dioxide 20.8 mmol/L (21.0-32.0); Chloride 103 mmol/L (98-108); Glucose 127 mg/dL (70-99); Potassium 5.0 mmol/L (3.3-5.1)
[2025-01-08 09:52] LABS: Scan Indicated on CBC? Y/N YES- FLAGS NOTED
[2025-01-08 09:53] LABS: Differential Comment SCANNED
== END ==
LOC: OLS.SANC 05:00
PROVIDERS: Visit Provider Internal Medicine
DX: E11.9 Type 2 diabetes mellitus without complications (principal); I10 Essential (primary) hypertension
CPT/HCPCS: 36415; 80048; 85027